=== PATIENT | female | born 1950 | race Caucasian/White ===

== ENCOUNTER → 2017-07-24 10:07 | Outpatient (CLI) | payer MEDICARE, SELFPAY ==
--- NOTE | 2017-07-24 10:09 | HPBI_ITS ---
MAMMOGRAPHY - BILATERAL SCREENING REASON FOR EXAM: Female, 66 years old. Routine annual screening examination. PERTINENT HISTORY: Non-contributory. TECHNIQUE: Digital bilateral breast cesar (3D mammographic acquisition) in the CC and MLO projections. 2-D mediolateral oblique (MLO) and craniocaudad (CC) views of both breasts were obtained. CAD: Full Field Digital Mammography with Computer Added Detection was performed. COMPARISON: Comparison is made with prior study dated July 20, 2016 and July 14, 2015. FINDINGS: Breast Composition: There are scattered areas of fibroglandular density. There are no dominant masses or suspicious calcifications. Stable 5 mm well-defined nodule in the upper outer aspect of the left breast. Stable small bilateral benign-appearing axillary lymph nodes. No other significant abnormalities are identified. There has been no significant change since the prior study. HPBI/SCREENING MAMM (CAD), BILAT IMPRESSION: Stable bilateral screening mammogram. Yearly follow-up mammogram recommended. (A) ASSESSMENT CATEGORY: BIRADS Category 2: Benign. A letter regarding these results will be sent to the patient by the facility within 30 days. Approximately 10% of breast cancers are not detected by mammography. A normal mammogram should not delay biopsy of a clinically suspicious abnormality. [id number] Electronically Signed: Victoriano Cordoba MD at 12:30 EDT Tel [phone], Service support ,
== END ==
PROVIDERS: Family Provider Internal Medicine; PCP Internal Medicine; Visit Provider Internal Medicine
DX: Z12.31 Encounter for screening mammogram for malignant neoplasm of breast (principal)
CPT/HCPCS: 77063; 77067

== ENCOUNTER 2018-04-25 11:19 | Emergency (ER) | payer MEDICARE, SELFPAY ==
[2018-04-25 11:20] VITALS: BP 189/81; PULSE 86; RESP 18; TEMP 36.7; O2SAT 98; BMI 33.5
[2018-04-25 11:27] VITALS: O2SAT 97
--- NOTE | 2018-04-25 11:27 | EKG12_ITS ---
Test Reason : PALPS Blood Pressure : / mmHG Vent. Rate : 088 BPM Atrial Rate : 088 BPM P-R Int : 138 ms QRS Dur : 086 ms QT Int : 378 ms P-R-T Axes : 049 012 030 degrees QTc Int : 457 ms Normal sinus rhythm Nonspecific ST abnormality Abnormal ECG Confirmed by MELANIE CARDONA, IBAN ([id number]), editor farm journal ARIC LLANES ([id number] on 04/27/2018 9:12:12 AM Referred By: Confirmed By:IBAN NAVARRO MD
--- NOTE | 2018-04-25 11:30 | RAD_ITS ---
STUDY: X-RAY CHEST REASON FOR EXAM: Female, 67 years old. Chest pain and short of breath. TECHNIQUE: Single AP portable view of the chest. COMPARISON: None. FINDINGS: The lungs are clear and expanded. There is no demonstrated pleural abnormality. Normal size heart. Normal mediastinum and ronni. Normal visualized pulmonary arteries. Normal visualized aortic arch and descending thoracic aorta. There are diffuse degenerative changes of the visualized thoracic spine. Normal visualized ribs, clavicles, and shoulders. There is no demonstrated abnormality of the visualized soft tissue structures of the upper abdomen. RAD/Chest 1 View (Portable) IMPRESSION: No acute chest disease. Electronically Signed: Randal Song MD at 12:07 EST , Service support ,
--- NOTE | 2018-04-25 11:44 | ED.VISSUMM ---
- ER Visit Summary Date of Service: 04/25/18 Chief Complaint: [] Palpitations for 2 months History of Present Illness: The patient is a 67 F [] onset palpitations for 2 months, she has had no fever no cough no chest pain no history of MA PE DVT, normal bowel bladder habits. She indicates she is actually able to exercise at the [facility] riding a spinning bike getting on and off of it during exercise associated with that activity and does not feel sick when she does these activities she indicates today she had persistent sense of palpitations she had no syncope and she came in for evaluation She indicates she went to a pharmacy and they took her blood pressure was 180/80 range she does not known to have hypertension Physical Examination: [] 180/81 heart rate 80 on the monitor sinus rhythm General, no distress resting comfortably HEENT is generally unremarkable The neck is supple no adenopathy Cardiovascular, regular rate and rhythm Lungs, clear bilateral Abdomen, soft nontender Extremities, no clubbing cyanosis or edema Neurologic, awake alert answering questions appropriately moving all 4 extremities The patient really has no risk factors she is asked that we check her thyroid studies as she has a history of hyperthyroid was treated with radioablation therapy and she is currently on thyroid replacement she has no history of MA PE or DVT her so she is in sinus rhythm here EKG shows a sinus rhythm nothing acute we will keep her on the monitor screening labs Test Results: [] Emergency Department Course and Treatment: [] The patient's screening labs including her thyroid studies are all within normal range generally see those reports, her white count was 13, chest x-ray unremarkable per radiology, see that report, the patient is remained in a sinus rhythm here in the monitor resting comfortably no recurrence of the palpitations I have explained to the exact etiology of the above is unclear at this time we have asked her to basically rest follow-up with her family doctors and outpatient providers for further management options and return for change in symptoms she is comfortable this plan asked her to take 2 baby aspirin a day until she follows up and she will do so again she understands need for follow-up given the long differential Treatment Plan: [] Disposition: [] Home stable Impression: [] Palpitations etiology unclear This note was generated with [employer] software. It may contain incorrect words, spelling, and punctuation that were not noted in review of the chart prior to signing ED Disposition - Plan for ED Patient: Chief Complaint: Palpitations Referrals: Cori Brown MD [Primary Care Provider] -
[2018-04-25 11:57] LABS: Basophil# 0.04 X10^3/uL; Basophil% 0.3 % (0-1); Eosinophil# 0.04 X10^3/uL; Eosinophils% 0.3 % (0-5); Hematocrit 44.4 % (37-47); Hemoglobin 14.9 g/dl (12.0-15.0); Lymphocyte % 23.2 % (19-41); Mean Corp Hgb Conc 33.6 g/gl (32-36); Mean Corpuscular Hgb 30.5 pg (27.0-32.0); Mean Corpuscular Volume 90.8 fL (81-99); Mean Platelet Vol. 10.1 fl (6.2-12.0); Monocyte# 1.14 X10^3/uL; Monocyte% 8.5 % (0-10); Neutrophil % 67.3 % (47-70); Platelet Count 324 K/mm3 (150-450); RBC Distribution Width CV 12.8 % (11.6-14.6); RBC Distribution Width SD 41.9 fl (35.1-43.9); Red Blood Count 4.89 M/mm3 (4.2-5.4); White Blood Count 13.4 K/mm3 (4.4-11.0)
[2018-04-25 12:01] LABS: POSITIVE COUNT NO; POSITIVE DIFFERENTIAL NO; POSITIVE MORPHOLOGY NO
[2018-04-25] MEDS: Aspirin 81 MG TAB.CHEW 324 MG PO (12:04)
[2018-04-25] MEDS: 0.9% Normal Saline 1,000 ML 150 ML IV (12:05)
[2018-04-25 12:25] LABS: Anion Gap 10 (5-15); BNP,B-Type NATRIURETIC PEPTIDE 23.8 pg/mL (0-100); BUN 24 mg/dL (7-18); BUN/Creat Ratio 26.5 RATIO (10-20); Calcium,Total 8.7 mg/dL (8.5-10.1); Chloride 104 mmol/L (98-107); EST Glomerular Filtration Rate 66 mL/min (>60); Est Glom Filt Rate - Afr Amer 80 mL/min (>60); Estimated Creatinine Clearance 47.32 ml/min; Glucose 100 mg/dL (74-106); Potassium 3.4 mmol/L (3.5-5.1); Sodium Level 141 mmol/L (136-145)
[2018-04-25 12:48] LABS: T4 Total, Thyroxin 11.3 ug/dL (4.8-13.9); Thyroid Stim Hormone (TSH) 0.71 uIU/mL (0.358-3.74)
--- NOTE | 2018-04-25 12:55 | ED.DEP ---
ED Disposition - Plan for ED Patient: Chief Complaint: Palpitations Instructions: ED Palpitations Referrals: Cori Brown MD [Primary Care Provider] - Additional Instructions: Take 2 baby aspirin a day make sure you follow-up with your doctors for further outpatient management
[2018-04-25 13:33] VITALS: BP 162/79; PULSE 69; RESP 18; O2SAT 96
--- OUTSIDE RECORDS SUMMARY | 2018-06-11 15:17 | XMS RPT_ITS ---
:1950 Author Organization OHIP Care Team Providers Name Role Phone DASH ZHU ([facility]) Attending Unavailable DASH ZHU ([facility]) Attending Unavailable DASH ZHU ([facility]) Referring Unavailable DASH ZHU ([facility]) Referring Unavailable DASH ZHU ([facility]) Attending Unavailable TALAMPAS, FIORELLA D Referring Unavailable TALAMPAS, FIORELLA Erwin Attending Unavailable TALAMPAS, FIORELLA D Referring Unavailable DASH ZHU ([facility]) Attending Unavailable Talampas, Fiorella Primary Care Unavailable Jesus Cruz Attending Unavailable Talampas, Fiorella Attending Unavailable Talampas, Fiorella Referring Unavailable Talampas, Fiorella Primary Care Unavailable PROBLEMS PROBLEMS DATE TYPE CONDITION / CODE ATTENDING STATUS SOURCE 04/27/2018 Active Essential NA Active [facility] (primary) [place] hypertension / Repository I10(ICD-10) 06/09/2015 Active Vitamin D NA Active [facility] deficiency, [place] unspecified / Repository E55.9(ICD-10) 12/05/2017 Active Hypothyroidism, NA Active [facility] unspecified / [place] E03.9(ICD-10) Repository 12/05/2017 Active Other mcc NA Active [facility] (current) drug [place] therapy / Repository Z79.899(ICD-10) 12/05/2017 Active Impaired fasting NA Active [facility] glucose / [place] R73.01(ICD-10) Repository 08/21/2017 Unknown Z12.31 - Encounter Fiorella Brown Active [facility] for screening [facility] malignant neoplasm Repository of breast / Z12.31(ICD-10) PROCEDURES PROCEDURES No Procedure Records FoundRESULTS RESULTS PROGRESS Observed: 05/29/2018 Status: COMPLETED Source: [place] 9:51 AM [facility] REPOSITORY HNO ID: [id number] Author: Dash (Rico) Gage Service: (none) Author Type: Nurse Practitioner Type: Progress Notes Filed: 05/29/2018 12:04 PM Note Text: HPI/CC: Amina Tobar is an 67 year old female who presents for followup of anxiety/ depression treatment. Started on Wellbutrin ~4 weeks ago Since last visit patient anxious feelings, weight loss and sleep have improved. Patient notes friends/co-workers note a difference in her mood. Symptoms have occurred daily. Panic hx: Yes, now only feeling anxious intermittently. No panic attacks since last visit. Anxious feeling has improved Sleep Problems: chronic sleep problems, notes if she wakes in the middle of the night she tends to worry and cannot fall back asleep Appetite: down slightly, doesn't feel like eating since starting new medication Support system: and friends Positive health behaviors: back to working out and volunteering HTN: patient reports doing well on Losartan x2 weeks following side effects from Lisinopril. Checking BP at home with readings fluctuating between 130-140s/70s-80s. No consistent highs. Denies headache, chest pain, SOB or edema ROS as above, otherwise non-contributory. Reviewed PMHx, PSHx, social Hx, medications and allergies. PHYSICAL EXAMINATION: BP 142/86 Pulse 64 Temp 36.9 ?C (98.5 ?F) (Temporal Artery) Resp 16 Wt 79.8 kg (176 lb) SpO2 98% BMI 33.25 kg/m? Appearance: well dressed well groomed, cooperative and pleasant Behavior: good eye contact Speech: fluent and coherent Mood: happy Affect: appropriate Perceptions: none Thought process: goal directed Thought Content: normal Intelligence level: normal Insight: good Judgment: good Lungs: Lungs clear to auscultation. No wheezing, rhonchi, rales Heart: RRR without murmur, gallop, or rubs. No ectopy ASSESSMENT/PLAN: 1. Anxiety - ICD9: 300.00, ICD10: F41.9 - Improved, not at baseline - Increase Wellbutrin - Recommend continued positive health behaviors ie: working out/volunteering - BUPROPION XL 300 MG 24 HR TAB - Follow up in 4-5 weeks as scheduled 2. Essential hypertension - ICD9: 401.9, ICD10: I10 - suboptimal control - Continue current medication(s) only started ~2 weeks ago, will avoid dosage adjustment until patient reaches ~4 weeks of continued use - Encouraged dietary sodium restriction/DASH diet - Recommended regular aerobic exercise. - Recommend home blood pressure monitoring, to bring results in on next visit - Recheck in 4 weeks as scheduled, sooner should new symptoms or problems arise. - Goal of BP <130/80 - Recommended no refined sugar, low refined starch, healthy oil intake (olive oil), healthy protein (fish) along the lines of the Mediterranean diet. Prescription instructions reviewed with patient as applicable. Potential red flag symptoms discussed with the patient. Reviewed appropriate action plan to take if red flag symptoms occur. Patient agreeable to treatment plan. Dash Zhu APRN.CNP CNOV Observed: 05/29/2018 Status: COMPLETED Source: [place] 9:20 AM [facility] REPOSITORY Office Visit (INTMWS) EKATERINAAMINA Michelle ([id number]) 1950 F NFR Date Time Provider Department 05/29/18 9:20 AM DASH ZHU ([facility]) INTMWS During your visit today, we recorded the following information about you: Temperature Pulse Respiration Blood pressure 98.5 degrees 64/minute 16/minute 142/86 Weight 79.8 kg Dash Zhu APRN.CNP 05/29/2018 12:04 PM Signed HPI/CC: Amina Tobar is an 67 year old female who presents for followup of anxiety/ depression treatment. Started on Wellbutrin ~4 weeks ago Since last visit patient anxious feelings, weight loss and sleep have improved. Patient notes friends/co-workers note a difference in her mood. Symptoms have occurred daily. Panic hx: Yes, now only feeling anxious intermittently. No panic attacks since last visit. Anxious feeling has improved Sleep Problems: chronic sleep problems, notes if she wakes in the middle of the night she tends to worry and cannot fall back asleep Appetite: down slightly, doesn't feel like eating since starting new medication Support system: and friends Positive health behaviors: back to working out and volunteering HTN: patient reports doing well on Losartan x2 weeks following side effects from Lisinopril. Checking BP at home with readings fluctuating between 130-140s/70s-80s. No consistent highs. Denies headache, chest pain, SOB or edema ROS as above, otherwise non-contributory. Reviewed PMHx, PSHx, social Hx, medications and allergies. PHYSICAL EXAMINATION: BP 142/86 Pulse 64 Temp 36.9 ?C (98.5 ?F) (Temporal Artery) Resp 16 Wt 79.8 kg (176 lb) SpO2 98% BMI 33.25 kg/m? Appearance: well dressed well groomed, cooperative and pleasant Behavior: good eye contact Speech: fluent and coherent Mood: happy Affect: appropriate Perceptions: none Thought process: goal directed Thought Content: normal Intelligence level: normal Insight: good Judgment: good Lungs: Lungs clear to auscultation. No wheezing, rhonchi, rales Heart: RRR without murmur, gallop, or rubs. No ectopy ASSESSMENT/PLAN: 1. Anxiety - ICD9: 300.00, ICD10: F41.9 - Improved, not at baseline - Increase Wellbutrin - Recommend continued positive health behaviors ie: working out/volunteering - BUPROPION XL 300 MG 24 HR TAB - Follow up in 4-5 weeks as scheduled 2. Essential hypertension - ICD9: 401.9, ICD10: I10 - suboptimal control - Continue current medication(s) only started ~2 weeks ago, will avoid dosage adjustment until patient reaches ~4 weeks of continued use - Encouraged dietary sodium restriction/DASH diet - Recommended regular aerobic exercise. - Recommend home blood pressure monitoring, to bring results in on next visit - Recheck in 4 weeks as scheduled, sooner should new symptoms or problems arise. - Goal of BP <130/80 - Recommended no refined sugar, low refined starch, healthy oil intake (olive oil), healthy protein (fish) along the lines of the Mediterranean diet. Prescription instructions reviewed with patient as applicable. Potential red flag symptoms discussed with the patient. Reviewed appropriate action plan to take if red flag symptoms occur. Patient agreeable to treatment plan. JANEEN Coombs APRN.CNP 05/29/2018 10:07 AM Signed Continue to check BP at home. If you are consistently getting BP readings of greater than 140/90 please notify office. Increasing Wellbutrin to 300 mg daily. Referring Provider: DASH ZHU ([employer]) [[id number]] Allergies As of Date: 05/29/2018 Noted Allergy Reaction AXID (NIZATIDINE) 03/30/2005 4 - Hives CYMBALTA (DULOXETINE) 08/19/2009 Comments: Insomnia MERIDIA (SIBUTRAMINE) 03/30/2005 2 - Rash SULFABENZAMIDE 03/30/2005 Comments: red mouth Date Reviewed: 05/04/2018 Reviewed by: Danielle Draper Ma - Fully Assessed Reason for Visit: Recheck [92] Cmt: Medication follow up Primary Visit Diagnosis:Anxiety [F41.9] Other Visit Diagnosis:Essential hypertension [I10] Order(s):buPROPion XL (WELLBUTRIN XL) 300 mg 24 hr tabletTake 1 tablet by mouth once daily.Disp: 30 tabletRfl: 2 Prescriptions as of 05/29/2018 Sig: BUPROPION XL 300 MG 24 HR TAB Take 1 tablet by mouth once d* LOSARTAN 50 MG TABLET Take 1 tablet by mouth once d* LORAZEPAM 0.5 MG TABLET Take 0.5 mg by mouth at bedti* TRAMADOL 50 MG TABLET Take 50 mg by mouth as needed. LEVOTHYROXINE 75 MCG TABLET Take 1 tablet by mouth daily * PERFLUTREN LIPID MICROSPHERES* Inject 1.3 mL intravenously a* HYDROCHLOROTHIAZIDE 50 MG TAB* Take 0.5-1 tablets by mouth o* OMEPRAZOLE 20 MG CAPSULE,MG* Take 2 capsules by mouth once* PROMETHAZINE 25 MG TABLET Take 0.5-1 tablets by mouth e* MELOXICAM 15 MG TABLET Take 1 tablet by mouth once d* MAGNESIUM 250 MG TABLET Take 250 mg by mouth once ysabel* HYDROCORTISONE 2.5 % TOPICAL * Apply 1 application to affect* VITAMIN D-3 ORAL Take by mouth. GABAPENTIN 300 MG CAPSULE Take 1 capsule by mouth daily* MULTIVITAL ORAL Take by mouth. CHOLECALCIFEROL (VITAMIN D3) * Take 1,000 Units by mouth onc* ALBUTEROL SULFATE HFA 90 MCG/* Inhale 2 Puffs as instructed * Problem List As Of Date 05/29/2018 Noted Resolved GENERAL OSTEOARTHROSIS [M15.9] More... BONE AND CARTILAGE DIS NOS [M89.9, M94.9] INVALID FOR* DIFFUS CYSTIC MASTOPATHY [N60.19] IRRITABLE COLON [K58.9] OBESITY NOS [E66.9] DEPRESSIVE DISORDER NEC [F32.9] More... 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 Other and unspecified noninfectious gastroenter*INVALID FOR* Other instructions from your clinician: Continue to check BP at home. If you are consistently getting BP readings of greater than 140/90 please notify office. Increasing Wellbutrin to 300 mg daily. Prescriptions ordered this encounter Disp Refills Start End BUPROPION XL 300 MG 24 HR TAB 30 t* 2 05/29/2018 Route: ORAL Sig: Take 1 tablet by mouth once daily. Medications Discontinued During This Encounter buPROPion SR (WELLBUTRIN SR) 150 mg * 30 t* 1 05/04/2018 05/29/2018 Route: ORAL Sig: Take 1 tablet by mouth once daily. Disc: Reason for discontinue is not on file. Encounter Status:Closed by DASH ZHU CNP on 05/29/18 LINDSAY Observed: 05/14/2018 Status: COMPLETED Source: [place] 12:00 AM [facility] REPOSITORY Patient Outreach (INTMWH) AMINA TOBAR ([id number]) 1950 F NFR Date Time Provider Department 05/14/18 [facility] During your visit today, we recorded the following information about you: Allergies As of Date: 05/14/2018 Noted Allergy Reaction AXID (NIZATIDINE) 03/30/2005 4 - Hives CYMBALTA (DULOXETINE) 08/19/2009 Comments: Insomnia MERIDIA (SIBUTRAMINE) 03/30/2005 2 - Rash SULFABENZAMIDE 03/30/2005 Comments: red mouth Date Reviewed: 05/04/2018 Reviewed by: Danielle Draper Ma - Fully Assessed Visit Diagnosis:Medication management [Z79.899] Order(s):LIPID PANEL BASIC [SQLIPB] Order #: [id number] FUTURE Prescriptions as of 05/14/2018 Sig: LOSARTAN 50 MG TABLET Take 1 tablet by mouth once d* BUPROPION HCL SR 150 MG TABLE* Take 1 tablet by mouth once d* LORAZEPAM 0.5 MG TABLET Take 0.5 mg by mouth at bedti* TRAMADOL 50 MG TABLET Take 50 mg by mouth as needed. LEVOTHYROXINE 75 MCG TABLET Take 1 tablet by mouth daily * PERFLUTREN LIPID MICROSPHERES* Inject 1.3 mL intravenously a* X LISINOPRIL 10 MG TABLET Take 1 tablet by mouth once d* HYDROCHLOROTHIAZIDE 50 MG TAB* Take 0.5-1 tablets by mouth o* OMEPRAZOLE 20 MG CAPSULE,MG* Take 2 capsules by mouth once* PROMETHAZINE 25 MG TABLET Take 0.5-1 tablets by mouth e* MELOXICAM 15 MG TABLET Take 1 tablet by mouth once d* MAGNESIUM 250 MG TABLET Take 250 mg by mouth once ysabel* HYDROCORTISONE 2.5 % TOPICAL * Apply 1 application to affect* VITAMIN D-3 ORAL Take by mouth. GABAPENTIN 300 MG CAPSULE Take 1 capsule by mouth daily* MULTIVITAL ORAL Take by mouth. CHOLECALCIFEROL (VITAMIN D3) * Take 1,000 Units by mouth onc* ALBUTEROL SULFATE HFA 90 MCG/* Inhale 2 Puffs as instructed * Problem List As Of Date 05/14/2018 Noted Resolved GENERAL OSTEOARTHROSIS [M15.9] More... BONE AND CARTILAGE DIS NOS [M89.9, M94.9] INVALID FOR* DIFFUS CYSTIC MASTOPATHY [N60.19] IRRITABLE COLON [K58.9] OBESITY NOS [E66.9] DEPRESSIVE DISORDER NEC [F32.9] More... 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 Other and unspecified noninfectious gastroenter*INVALID FOR* Encounter Status:Closed by KARLIE URIARTEUSEFrancie on 05/29/18 PROGRESS Observed: 05/04/2018 Status: COMPLETED Source: [place] 11:15 AM [facility] REPOSITORY HNO ID: [id number] Author: Dash (Process Engineering Intern) Gage Service: (none) Author Type: Nurse Practitioner Type: Progress Notes Filed: 05/04/2018 12:04 PM Note Text: CC: Patient presents with: Recheck: Medication follow up, feel lathargic and emotional, fatigued, just not self HPI Amina Tobar is a 67 year old female who presents today with for complaints of feeling fatigued and overly emotional. Patient was last seen ~1 week ago where she was diagnosed with HTN and started on Lisinopril and Synthroid dose was adjusted based on laboratory assessment. Today she presents with complaints of not feeling like herself, feeling fatigued, overly emotional and crying a lot. She reports feeling shaky and unable to catch her breath at times. She did take a dose of her prescribed Ativan last evening to help her sleep. She reports some family issues at home with her older sister and nephew- she is trying to help take care of things for them in addition to several deaths within in her three affiliated of family/friends. As well as being stressed d/t the holidays. Notes previous history of anxiety/depression, prescribed Wellbutrin which seemed to help. She does note some cough after starting Lisinopril as well as decreased appetite. She hasn't worked out this last week d/t how she has been feeling. Notes some trouble sleeping. REVIEW OF SYSTEMS General: no fevers, no chills, no night sweats, no recurrent infections, no significant changes in weight and See HPI Respiratory: no cough, no wheezing, , no hemoptysis Cardiovascular: no chest pain, no chest pressure and no swelling Hx of palpitations GI: No nausea, vomiting, or diarrhea Psych: See HPI PAST MEDICAL HISTORY Diagnosis Date - Allergic rhinitis, cause unspecified - Depressive disorder, not elsewhere classified with anxiety - Diffuse cystic mastopathy - Disorder of bone and cartilage, unspecified 05/2003 - Esophageal reflux - Generalized osteoarthrosis, unspecified site lumbar spine - Internal hemorrhoids without mention of complication - Irritable bowel syndrome - Obesity, unspecified - Other bursitis disorders right greater trochanter - Sciatica - Thyrotoxicosis without mention of goiter or other cause, without mention of thyrotoxic crisis or storm 1998 Hyperthyroidism/had radioactive iodine - Unspecified hypothyroidism PAST SURGICAL HISTORY Procedure Laterality Date - COLONOSCOP W/ OR W/O [facility] SPEC 07/02/07 - COLONOSCOP W/ OR W/O [facility] SPEC 04/09/14 Colonoscopy - EGD W/O OR W/BRUSH/WASH 12/1991 EGD - PAST SURGICAL HISTORY OF cataract surgery--right July 2015,left August 2015 - REMOVAL OF TONSILS,<12 Y/O Tonsillectomy/adenoidectomy - SIGMOIDOSCOPY FLEX DIAG Sigmoidoscopy, flexible ALLERGIES Axid [Nizatidine]; Cymbalta [Duloxetine]; Meridia [Sibutramine]; Sulfabenzamide MEDICATIONS albuterol HFA 90 mcg/actuation inhaler Inhale 2 Puffs as instructed every 6 hours as needed for Wheezing/Shortness of Breath. buPROPion SR (WELLBUTRIN SR) 150 mg 12 hr tablet Take 1 tablet by mouth once daily. CALCIUM CARBONATE/VITAMIN D3 (VITAMIN D-3 ORAL) Take by mouth. Cholecalciferol, Vitamin D3, (VITAMIN D) 1,000 unit cap Take 1,000 Units by mouth once daily. FA/MV,CA,IRON,MIN/LYCOPENE/LUT (MULTIVITAL ORAL) Take by mouth. gabapentin (NEURONTIN) 300 mg capsule Take 1 capsule by mouth daily at bedtime. (Dr. Gaffney) hydroCHLOROthiazide (HYDRODIURIL, ESIDRIX) 50 mg tablet Take 0.5-1 tablets by mouth once daily. hydrocortisone 2.5 % cream Apply 1 application to affected area three times daily as needed. For rash on hand and extremities until rash resolves levothyroxine (SYNTHROID) 75 mcg tablet Take 1 tablet by mouth daily before breakfast. Except 1/2 tab Mon, Mon and Monday lisinopril (ZESTRIL, PRINIVIL) 10 mg tablet Take 1 tablet by mouth once daily. LORazepam (ATIVAN) 0.5 mg tab Take 0.5 mg by mouth at bedtime as needed. Magnesium 250 mg tab Take 250 mg by mouth once daily. meloxicam (MOBIC) 15 mg tablet Take 1 tablet by mouth once daily as needed. (Dr. Gaffney) omeprazole (PRILOSEC) 20 mg capsule Take 2 capsules by mouth once daily. (Dr. Gaffney) perflutren lipid microspheres (DEFINITY) 1.1 mg/mL injection (to be provided with echo procedure) Inject 1.3 mL intravenously as directed. promethazine (PHENERGAN) 25 mg tablet Take 0.5-1 tablets by mouth every 6 hours as needed. traMADol (ULTRAM) 50 mg tablet Take 50 mg by mouth as needed. FAMILY HISTORY Problem Relation Age of Onset - Diabetes Father also CAD/OK - Coronary Artery Disease Mother CABG at age 80 - Cancer Unknown aunt lung cancer Social History Substance Use Topics - Smoking status: Former Smoker Start date: 05/15/1986 - Smokeless tobacco: Never Used - Alcohol use 4.5 oz/week 3 Glasses of Wine (5oz) per week PHYSICAL EXAM BP 132/80 Pulse 72 Temp 36.2 ?C (97.2 ?F) (Temporal Artery) Resp 16 Wt 83 kg (183 lb) SpO2 100% BMI 34.58 kg/m? General Appearance: well appearing, in no acute distress, alert Pysch: affect is anxious, tearful Skin: Skin color, texture, turgor normal for age; Lungs: lungs clear to auscultation. No wheezing, rhonchi, rales Heart: RRR without murmur, gallop, or rubs. No ectopy INFLUENZA(1) due on 01/13/2018 MAMMOGRAM due on 07/24/2018 ANNUAL PCP TEAM CHRONIC DISEASE VISIT due on 04/26/2019 DIABETES SCREEN due on 12/05/2020 DTAP,TDAP,TD(2 - Td) due on 09/08/2021 LIPID SCREEN due on 06/19/2022 COLORECTAL CANCER SCREENING,SEE MODIFIER due on 04/09/2024 BONE DENSITY Completed ADULT PREVNAR-13 Completed HEPATITIS C SCREENING Completed PNEUMOVAX AGE 65 AND OVER WITH 5YR LOOKBACK Completed ASSESSMENT/PLAN: 1. Anxiety - ICD9: 300.00, ICD10: F41.9 - Encouraged relaxation and exercise - Begin Wellbutrin, previously tolerated - BUPROPION HCL SR 150 MG TABLET,12 HR SUSTAINED-RELEASE - Follow up in 3-4 weeks, sooner for new or worsening symptoms Dash Zhu APRN.CNP Prescription instructions reviewed with patient as applicable. Potential red flag symptoms discussed with the patient. Reviewed appropriate action plan to take if red flag symptoms occur. Patient agreeable to treatment plan. CNOV Observed: 05/04/2018 Status: COMPLETED Source: [place] 10:40 AM [facility] REPOSITORY Office Visit (INTMWS) AMINA TOBAR ([id number]) 1950 F NFR Date Time Provider Department 05/04/18 10:40 AM DASH ZHU ([place]) IN[facility] During your visit today, we recorded the following information about you: Temperature Pulse Respiration Blood pressure 97.2 degrees 72/minute 16/minute 132/80 Weight 83 kg Dash Zhu APRN.CNP 05/04/2018 12:04 PM Signed CC: Patient presents with: Recheck: Medication follow up, feel lathargic and emotional, fatigued, just not self HPI Amina Tobar is a 67 year old female who presents today with for complaints of feeling fatigued and overly emotional. Patient was last seen ~1 week ago where she was diagnosed with HTN and started on Lisinopril and Synthroid dose was adjusted based on laboratory assessment. Today she presents with complaints of not feeling like herself, feeling fatigued, overly emotional and crying a lot. She reports feeling shaky and unable to catch her breath at times. She did take a dose of her prescribed Ativan last evening to help her sleep. She reports some family issues at home with her older sister and nephew- she is trying to help take care of things for them in addition to several deaths within in her three affiliated of family/friends. As well as being stressed d/t the holidays. Notes previous history of anxiety/depression, prescribed Wellbutrin which seemed to help. She does note some cough after starting Lisinopril as well as decreased appetite. She hasn't worked out this last week d/t how she has been feeling. Notes some trouble sleeping. REVIEW OF SYSTEMS General: no fevers, no chills, no night sweats, no recurrent infections, no significant changes in weight and See HPI Respiratory: no cough, no wheezing, , no hemoptysis Cardiovascular: no chest pain, no chest pressure and no swelling Hx of palpitations GI: No nausea, vomiting, or diarrhea Psych: See HPI PAST MEDICAL HISTORY Diagnosis Date - Allergic rhinitis, cause unspecified - Depressive disorder, not elsewhere classified with anxiety - Diffuse cystic mastopathy - Disorder of bone and cartilage, unspecified 05/2003 - Esophageal reflux - Generalized osteoarthrosis, unspecified site lumbar spine - Internal hemorrhoids without mention of complication - Irritable bowel syndrome - Obesity, unspecified - Other bursitis disorders right greater trochanter - Sciatica - Thyrotoxicosis without mention of goiter or other cause, without mention of thyrotoxic crisis or storm 1998 Hyperthyroidism/had radioactive iodine - Unspecified hypothyroidism PAST SURGICAL HISTORY Procedure Laterality Date - COLONOSCOP W/ OR W/O [facility] SPEC 07/02/07 - COLONOSCOP W/ OR W/O [facility] SPEC 04/09/14 Colonoscopy - EGD W/O OR W/BRUSH/WASH 12/1991 EGD - PAST SURGICAL HISTORY OF cataract surgery--right July 2015,left August 2015 - REMOVAL OF TONSILS,<12 Y/O Tonsillectomy/adenoidectomy - SIGMOIDOSCOPY FLEX DIAG Sigmoidoscopy, flexible ALLERGIES Axid [Nizatidine]; Cymbalta [Duloxetine]; Meridia [Sibutramine]; Sulfabenzamide MEDICATIONS albuterol HFA 90 mcg/actuation inhaler Inhale 2 Puffs as instructed every 6 hours as needed for Wheezing/Shortness of Breath. buPROPion SR (WELLBUTRIN SR) 150 mg 12 hr tablet Take 1 tablet by mouth once daily. CALCIUM CARBONATE/VITAMIN D3 (VITAMIN D-3 ORAL) Take by mouth. Cholecalciferol, Vitamin D3, (VITAMIN D) 1,000 unit cap Take 1,000 Units by mouth once daily. FA/MV,CA,IRON,MIN/LYCOPENE/LUT (MULTIVITAL ORAL) Take by mouth. gabapentin (NEURONTIN) 300 mg capsule Take 1 capsule by mouth daily at bedtime. (Dr. Gaffney) hydroCHLOROthiazide (HYDRODIURIL, ESIDRIX) 50 mg tablet Take 0.5-1 tablets by mouth once daily. hydrocortisone 2.5 % cream Apply 1 application to affected area three times daily as needed. For rash on hand and extremities until rash resolves levothyroxine (SYNTHROID) 75 mcg tablet Take 1 tablet by mouth daily before breakfast. Except 1/2 tab Mon, Mon and Monday lisinopril (ZESTRIL, PRINIVIL) 10 mg tablet Take 1 tablet by mouth once daily. LORazepam (ATIVAN) 0.5 mg tab Take 0.5 mg by mouth at bedtime as needed. Magnesium 250 mg tab Take 250 mg by mouth once daily. meloxicam (MOBIC) 15 mg tablet Take 1 tablet by mouth once daily as needed. (Dr. Gaffney) omeprazole (PRILOSEC) 20 mg capsule Take 2 capsules by mouth once daily. (Dr. Gaffney) perflutren lipid microspheres (DEFINITY) 1.1 mg/mL injection (to be provided with echo procedure) Inject 1.3 mL intravenously as directed. promethazine (PHENERGAN) 25 mg tablet Take 0.5-1 tablets by mouth every 6 hours as needed. traMADol (ULTRAM) 50 mg tablet Take 50 mg by mouth as needed. FAMILY HISTORY Problem Relation Age of Onset - Diabetes Father also CAD/OK - Coronary Artery Disease Mother CABG at age 80 - Cancer Unknown aunt lung cancer Social History Substance Use Topics - Smoking status: Former Smoker Start date: 05/15/1986 - Smokeless tobacco: Never Used - Alcohol use 4.5 oz/week 3 Glasses of Wine (5oz) per week PHYSICAL EXAM BP 132/80 Pulse 72 Temp 36.2 ?C (97.2 ?F) (Temporal Artery) Resp 16 Wt 83 kg (183 lb) SpO2 100% BMI 34.58 kg/m? General Appearance: well appearing, in no acute distress, alert Pysch: affect is anxious, tearful Skin: Skin color, texture, turgor normal for age; Lungs: lungs clear to auscultation. No wheezing, rhonchi, rales Heart: RRR without murmur, gallop, or rubs. No ectopy INFLUENZA(1) due on 01/13/2018 MAMMOGRAM due on 07/24/2018 ANNUAL PCP TEAM CHRONIC DISEASE VISIT due on 04/26/2019 DIABETES SCREEN due on 12/05/2020 DTAP,TDAP,TD(2 - Td) due on 09/08/2021 LIPID SCREEN due on 06/19/2022 COLORECTAL CANCER SCREENING,SEE MODIFIER due on 04/09/2024 BONE DENSITY Completed ADULT PREVNAR-13 Completed HEPATITIS C SCREENING Completed PNEUMOVAX AGE 65 AND OVER WITH 5YR LOOKBACK Completed ASSESSMENT/PLAN: 1. Anxiety - ICD9: 300.00, ICD10: F41.9 - Encouraged relaxation and exercise - Begin Wellbutrin, previously tolerated - BUPROPION HCL SR 150 MG TABLET,12 HR SUSTAINED-RELEASE - Follow up in 3-4 weeks, sooner for new or worsening symptoms Dash Zhu APRN.SPOKE MAKER Prescription instructions reviewed with patient as applicable. Potential red flag symptoms discussed with the patient. Reviewed appropriate action plan to take if red flag symptoms occur. Patient agreeable to treatment plan. Referring Provider: SELF [[id number]] Allergies As of Date: 05/04/2018 Noted Allergy Reaction AXID (NIZATIDINE) 03/30/2005 4 - Hives CYMBALTA (DULOXETINE) 08/19/2009 Comments: Insomnia MERIDIA (SIBUTRAMINE) 03/30/2005 2 - Rash SULFABENZAMIDE 03/30/2005 Comments: red mouth Date Reviewed: 05/04/2018 Reviewed by: Danielle Draper Ma - Fully Assessed Reason for Visit: Recheck [92] Cmt: Medication follow up, feel lathargic and emotional, fatigued, just not self Primary Visit Diagnosis:Anxiety [F41.9] Order(s):buPROPion SR (WELLBUTRIN SR) 150 mg 12 hr tabletTake 1 tablet by mouth once daily.Disp: 30 tabletRfl: 1 Prescriptions as of 05/04/2018 Sig: ALBUTEROL SULFATE HFA 90 MCG/* Inhale 2 Puffs as instructed * BUPROPION HCL SR 150 MG TABLE* Take 1 tablet by mouth once d* VITAMIN D-3 ORAL Take by mouth. CHOLECALCIFEROL (VITAMIN D3) * Take 1,000 Units by mouth onc* MULTIVITAL ORAL Take by mouth. GABAPENTIN 300 MG CAPSULE Take 1 capsule by mouth daily* HYDROCHLOROTHIAZIDE 50 MG TAB* Take 0.5-1 tablets by mouth o* HYDROCORTISONE 2.5 % TOPICAL * Apply 1 application to affect* LEVOTHYROXINE 75 MCG TABLET Take 1 tablet by mouth daily * LISINOPRIL 10 MG TABLET Take 1 tablet by mouth once d* LORAZEPAM 0.5 MG TABLET Take 0.5 mg by mouth at bedti* MAGNESIUM 250 MG TABLET Take 250 mg by mouth once ysabel* MELOXICAM 15 MG TABLET Take 1 tablet by mouth once d* OMEPRAZOLE 20 MG CAPSULE,MG* Take 2 capsules by mouth once* PERFLUTREN LIPID MICROSPHERES* Inject 1.3 mL intravenously a* PROMETHAZINE 25 MG TABLET Take 0.5-1 tablets by mouth e* TRAMADOL 50 MG TABLET Take 50 mg by mouth as needed. Problem List As Of Date 05/04/2018 Noted Resolved GENERAL OSTEOARTHROSIS [M15.9] More... BONE AND CARTILAGE DIS NOS [M89.9, M94.9] INVALID FOR* DIFFUS CYSTIC MASTOPATHY [N60.19] IRRITABLE COLON [K58.9] OBESITY NOS [E66.9] DEPRESSIVE DISORDER NEC [F32.9] More... 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 Other and unspecified noninfectious gastroenter*INVALID FOR* Prescriptions ordered this encounter Disp Refills Start End BUPROPION HCL SR 150 MG TABLET,12 HR* 30 t* 1 05/04/2018 Route: ORAL Sig: Take 1 tablet by mouth once daily. Follow-up and Disposition History Recorded Encounter Status:Closed by DASH ZHU CNP on 05/04/18 12 LEAD ELECTROCARDIOGRAM Observed: 04/27/2018 Status: F Source: [place] 9:12 AM [facility] REPOSITORY [facility] Cardiovascular Services [address] [place] [address] 12 Lead EKG 04/25/18 1121 MR#: [id number] Acct: [id number] Name: AMINA TOBAR Rep #: [id number] : 1950 67 From: Mick Kam MD Attending Dr: Status: DEP ER Ordering Dr: Jesus Cruz MD Date: 04/25/18 Location: ED Sex: F C Admitted: Test Reason : PALPS Blood Pressure : / mmHG Vent. Rate : 088 BPM Atrial Rate : 088 BPM P-R Int : 138 ms QRS Dur : 086 ms QT Int : 378 ms P-R-T Axes : 049 012 030 degrees QTc Int : 457 ms Normal sinus rhythm Nonspecific ST abnormality Abnormal ECG Confirmed by MICK KAM MD ([id number]), editor city ARIC LLANES ([id number]) on 04/27/2018 9:12:12 AM Referred By: Confirmed By:MICK KAM MD 04/27/18911 Date Mick Kam MD CC: MD Chris Cruz; Fiorella Brown MD Signed PROGRESS Observed: 04/26/2018 Status: COMPLETED Source: [place] 10:32 AM [facility] REPOSITORY HNO ID: [id number] Author: Dash (Selene Zhu Service: (none) Author Type: Nurse Practitioner Type: Progress Notes Filed: 04/26/2018 10:56 AM Note Text: CC: Patient presents with: ED Follow-up: elevated bp HPI Amina Tobar is a 67 year old female who presents today for [facility] ER follow up for elevated BP. Patient presented to [facility] ER 04/25/18 with complains of ongoing palpitations x2 months and sensation of not being able to catch her breath. She originally stopped at a local pharmacy where they took her BP with readings of 180/80 then presented to the ER. BP remained elevated at 180/81 in ER. EKG showed sinus rhythm. Labs were fairly unremarkable except WBC at 13 and TSH at 0.71. CXR negative for any acute process. Patient remained sinus rhythm on telemetry and was eventually discharged home with instructions to start daily ASA therapy. Today she indicates the same complaints of intermittent palpitations x2 months with symptoms of anxiety but does not feel anxious. Reports heightened emotions, crying easily. She reports her chest will occasionally feel funny and had episode of breathlessness yesterday, but did not require her inhaler. Also reports occasional head pressure, mostly with lying down and feeling shaky. She remains active, exercises regularly including spin classes. She is asymptomatic on exertion or during exercise. She denies fevers, chills, headaches, chest pains, SOB or wheezing. No significant changes in weight, but notes she is at the high end of her baseline and has been eating more potato chips. REVIEW OF SYSTEMS General: no fevers, no chills, no night sweats, no recurrent infections, no change in appetite, no change in energy and no significant changes in weight HEENT: no changes in hearing, no visual changes, no nose bleeds, no sinus or nasal problems Respiratory: no cough, no wheezing, no hemoptysis, See HPI Cardiovascular: no chest pain, no chest pressure and See HPI GI: No nausea, vomiting, or diarrhea Endocrine: no weight loss, no hair loss, no dry skin, no cold intolerance, no heat intolerance, no neck pain/pressure, no polyuria, no polyphagia, no polydipsia and See HPI Neurologic: No headache, weakness, numbness, tingling, neck stiffness, vertigo, dizziness, memory loss, syncope. PAST MEDICAL HISTORY Diagnosis Date - Allergic rhinitis, cause unspecified - Depressive disorder, not elsewhere classified with anxiety - Diffuse cystic mastopathy - Disorder of bone and cartilage, unspecified 05/2003 - Esophageal reflux - Generalized osteoarthrosis, unspecified site lumbar spine - Internal hemorrhoids without mention of complication - Irritable bowel syndrome - Obesity, unspecified - Other bursitis disorders right greater trochanter - Sciatica - Thyrotoxicosis without mention of goiter or other cause, without mention of thyrotoxic crisis or storm 1998 Hyperthyroidism/had radioactive iodine - Unspecified hypothyroidism PAST SURGICAL HISTORY Procedure Laterality Date - COLONOSCOP W/ OR W/O [facility] SPEC 07/02/07 - COLONOSCOP W/ OR W/O [facility] SPEC 04/09/14 Colonoscopy - EGD W/O OR W/BRUSH/WASH 12/1991 EGD - PAST SURGICAL HISTORY OF cataract surgery--right July 2015,left August 2015 - REMOVAL OF TONSILS,<12 Y/O Tonsillectomy/adenoidectomy - SIGMOIDOSCOPY FLEX DIAG Sigmoidoscopy, flexible ALLERGIES Axid [Nizatidine]; Cymbalta [Duloxetine]; Meridia [Sibutramine]; Sulfabenzamide MEDICATIONS albuterol HFA 90 mcg/actuation inhaler Inhale 2 Puffs as instructed every 6 hours as needed for Wheezing/Shortness of Breath. Cholecalciferol, Vitamin D3, (VITAMIN D) 1,000 unit cap Take 1,000 Units by mouth once daily. gabapentin (NEURONTIN) 300 mg capsule Take 1 capsule by mouth daily at bedtime. (Dr. Gaffney) hydroCHLOROthiazide (HYDRODIURIL, ESIDRIX) 50 mg tablet Take 0.5-1 tablets by mouth once daily. hydrocortisone 2.5 % cream Apply 1 application to affected area three times daily as needed. For rash on hand and extremities until rash resolves levothyroxine (SYNTHROID) 75 mcg tablet Take 1 tablet by mouth daily before breakfast. Except 1/2 tab Mon, Mon and Monday LORazepam (ATIVAN) 0.5 mg tab Take 0.5 mg by mouth at bedtime as needed. meloxicam (MOBIC) 15 mg tablet Take 1 tablet by mouth once daily as needed. (Dr. Gaffney) omeprazole (PRILOSEC) 20 mg capsule Take 2 capsules by mouth once daily. (Dr. Gaffney) traMADol (ULTRAM) 50 mg tablet Take 50 mg by mouth as needed. CALCIUM CARBONATE/VITAMIN D3 (VITAMIN D-3 ORAL) Take by mouth. FA/MV,CA,IRON,MIN/LYCOPENE/LUT (MULTIVITAL ORAL) Take by mouth. lisinopril (ZESTRIL, PRINIVIL) 10 mg tablet Take 1 tablet by mouth once daily. Magnesium 250 mg tab Take 250 mg by mouth once daily. perflutren lipid microspheres ([employer]) 1.1 mg/mL injection (to be provided with echo procedure) Inject 1.3 mL intravenously as directed. promethazine (PHENERGAN) 25 mg tablet Take 0.5-1 tablets by mouth every 6 hours as needed. FAMILY HISTORY Problem Relation Age of Onset - Diabetes Father also CAD/OK - Coronary Artery Disease Mother CABG at age 80 - Cancer Unknown aunt lung cancer Social History Substance Use Topics - Smoking status: Former Smoker Start date: 05/15/1986 - Smokeless tobacco: Never Used - Alcohol use 4.5 oz/week 3 Glasses of Wine (5oz) per week PHYSICAL EXAM BP 152/82 (BP Site: Left Arm, BP Position: Sitting, BP Cuff Size: Regular Adult) Pulse 80 Resp 16 Wt 83.5 kg (184 lb) BMI 34.77 kg/m? General Appearance: well appearing, in no acute distress, alert Pysch: mood and affect broad and appropriate Skin: Skin color, texture, turgor normal for age; Head: normocephalic, atraumatic Eyes: conjunctiva pink and moist, no icterus, sclera white, non-injected Lungs: lungs clear to auscultation. No wheezing, rhonchi, rales Heart: RRR without murmur, gallop, or rubs. No ectopy Bilateral Lower Extremities: No edema INFLUENZA(1) due on 01/13/2018 MAMMOGRAM due on 07/24/2018 ANNUAL PCP TEAM CHRONIC DISEASE VISIT due on 12/25/2018 DIABETES SCREEN due on 12/05/2020 DTAP,TDAP,TD(2 - Td) due on 09/08/2021 LIPID SCREEN due on 06/19/2022 COLORECTAL CANCER SCREENING,SEE MODIFIER due on 04/09/2024 BONE DENSITY Completed ADULT PREVNAR-13 Completed HEPATITIS C SCREENING Completed PNEUMOVAX AGE 65 AND OVER WITH 5YR LOOKBACK Completed ASSESSMENT/PLAN: 1. Essential hypertension - ICD9: 401.9, ICD10: I10 (primary diagnosis) - newly diagnosed - Begin lisinopril (Zestril/Prinivil) - Encouraged dietary sodium restriction/DASH diet - Recommended regular aerobic exercise. - Follow up in 1 month for BP recheck. - Goal of BP <130/80 - Recommended no refined sugar, low refined starch, healthy oil intake (olive oil), healthy protein (fish) along the lines of the Mediterranean diet. - ECHO - Additional follow up and possible stress test to be determined by imaging results 2. Acquired hypothyroidism - ICD9: 244.9, ICD10: E03.9 - Instructed patient on importance of taking on an empty stomach either first thing in the morning or at bedtime. - check TSH in 6 weeks - Decrease Synthroid dose to 0.075 mg with 1/2 tab Fri, Sat and Sun. - LEVOTHYROXINE 75 MCG TABLET - TSH BLD 3. Palpitations - ICD9: 785.1, ICD10: R00.2 - TSH on low end of expected norm, will adjust medications and watch for symptom improvement - Recheck in 6 weeks - MAGNESIUM BLD Dash Zhu APRN.CNP Prescription instructions reviewed with patient as applicable. Potential red flag symptoms discussed with the patient. Reviewed appropriate action plan to take if red flag symptoms occur. Patient agreeable to treatment plan. CNOV Observed: 04/26/2018 Status: COMPLETED Source: [place] 10:00 AM [facility] REPOSITORY Office Visit (INTMWS) AMINA TOBAR ([id number]) 1950 F NFR Date Time Provider Department 04/26/18 10:00 AM DASH ZHU ([facility]) INTMWS During your visit today, we recorded the following information about you: Pulse Respiration Blood pressure Weight 80/minute 16/minute 152/82 83.5 kg Dash Zhu APRN.CNP 04/26/2018 10:27 AM Signed Reminder repeat thyroid level in 6 weeks. Please notify office if you are unable to tolerate medications before your follow up. Start daily aspirin. Dash Zhu APRN.CNP 04/26/2018 10:56 AM Signed CC: Patient presents with: ED Follow-up: elevated bp HPI Amina Tobar is a 67 year old female who presents today for [facility] ER follow up for elevated BP. Patient presented to [facility] ER 04/25/18 with complains of ongoing palpitations x2 months and sensation of not being able to catch her breath. She originally stopped at a local pharmacy where they took her BP with readings of 180/80 then presented to the ER. BP remained elevated at 180/81 in ER. EKG showed sinus rhythm. Labs were fairly unremarkable except WBC at 13 and TSH at 0.71. CXR negative for any acute process. Patient remained sinus rhythm on telemetry and was eventually discharged home with instructions to start daily ASA therapy. Today she indicates the same complaints of intermittent palpitations x2 months with symptoms of anxiety but does not feel anxious. Reports heightened emotions, crying easily. She reports her chest will occasionally feel funny and had episode of breathlessness yesterday, but did not require her inhaler. Also reports occasional head pressure, mostly with lying down and feeling shaky. She remains active, exercises regularly including spin classes. She is asymptomatic on exertion or during exercise. She denies fevers, chills, headaches, chest pains, SOB or wheezing. No significant changes in weight, but notes she is at the high end of her baseline and has been eating more potato chips. REVIEW OF SYSTEMS General: no fevers, no chills, no night sweats, no recurrent infections, no change in appetite, no change in energy and no significant changes in weight HEENT: no changes in hearing, no visual changes, no nose bleeds, no sinus or nasal problems Respiratory: no cough, no wheezing, no hemoptysis, See HPI Cardiovascular: no chest pain, no chest pressure and See HPI GI: No nausea, vomiting, or diarrhea Endocrine: no weight loss, no hair loss, no dry skin, no cold intolerance, no heat intolerance, no neck pain/pressure, no polyuria, no polyphagia, no polydipsia and See HPI Neurologic: No headache, weakness, numbness, tingling, neck stiffness, vertigo, dizziness, memory loss, syncope. PAST MEDICAL HISTORY Diagnosis Date - Allergic rhinitis, cause unspecified - Depressive disorder, not elsewhere classified with anxiety - Diffuse cystic mastopathy - Disorder of bone and cartilage, unspecified 05/2003 - Esophageal reflux - Generalized osteoarthrosis, unspecified site lumbar spine - Internal hemorrhoids without mention of complication - Irritable bowel syndrome - Obesity, unspecified - Other bursitis disorders right greater trochanter - Sciatica - Thyrotoxicosis without mention of goiter or other cause, without mention of thyrotoxic crisis or storm 1998 Hyperthyroidism/had radioactive iodine - Unspecified hypothyroidism PAST SURGICAL HISTORY Procedure Laterality Date - COLONOSCOP W/ OR W/O [facility] SPEC 07/02/07 - COLONOSCOP W/ OR W/O [facility] SPEC 04/09/14 Colonoscopy - EGD W/O OR W/BRUSH/WASH 12/1991 EGD - PAST SURGICAL HISTORY OF cataract surgery--right July 2015,left August 2015 - REMOVAL OF TONSILS,<12 Y/O Tonsillectomy/adenoidectomy - SIGMOIDOSCOPY FLEX DIAG Sigmoidoscopy, flexible ALLERGIES Axid [Nizatidine]; Cymbalta [Duloxetine]; Meridia [Sibutramine]; Sulfabenzamide MEDICATIONS albuterol HFA 90 mcg/actuation inhaler Inhale 2 Puffs as instructed every 6 hours as needed for Wheezing/Shortness of Breath. Cholecalciferol, Vitamin D3, (VITAMIN D) 1,000 unit cap Take 1,000 Units by mouth once daily. gabapentin (NEURONTIN) 300 mg capsule Take 1 capsule by mouth daily at bedtime. (Dr. Gaffney) hydroCHLOROthiazide (HYDRODIURIL, ESIDRIX) 50 mg tablet Take 0.5-1 tablets by mouth once daily. hydrocortisone 2.5 % cream Apply 1 application to affected area three times daily as needed. For rash on hand and extremities until rash resolves levothyroxine (SYNTHROID) 75 mcg tablet Take 1 tablet by mouth daily before breakfast. Except 1/2 tab Mon, Mon and Monday LORazepam (ATIVAN) 0.5 mg tab Take 0.5 mg by mouth at bedtime as needed. meloxicam (MOBIC) 15 mg tablet Take 1 tablet by mouth once daily as needed. (Dr. Gaffney) omeprazole (PRILOSEC) 20 mg capsule Take 2 capsules by mouth once daily. (Dr. Gaffney) traMADol (ULTRAM) 50 mg tablet Take 50 mg by mouth as needed. CALCIUM CARBONATE/VITAMIN D3 (VITAMIN D-3 ORAL) Take by mouth. FA/MV,CA,IRON,MIN/LYCOPENE/LUT (MULTIVITAL ORAL) Take by mouth. lisinopril (ZESTRIL, PRINIVIL) 10 mg tablet Take 1 tablet by mouth once daily. Magnesium 250 mg tab Take 250 mg by mouth once daily. perflutren lipid microspheres (DEFINITY) 1.1 mg/mL injection (to be provided with echo procedure) Inject 1.3 mL intravenously as directed. promethazine (PHENERGAN) 25 mg tablet Take 0.5-1 tablets by mouth every 6 hours as needed. FAMILY HISTORY Problem Relation Age of Onset - Diabetes Father also CAD/OK - Coronary Artery Disease Mother CABG at age 80 - Cancer Unknown aunt lung cancer Social History Substance Use Topics - Smoking status: Former Smoker Start date: 05/15/1986 - Smokeless tobacco: Never Used - Alcohol use 4.5 oz/week 3 Glasses of Wine (5oz) per week PHYSICAL EXAM BP 152/82 (BP Site: Left Arm, BP Position: Sitting, BP Cuff Size: Regular Adult) Pulse 80 Resp 16 Wt 83.5 kg (184 lb) BMI 34.77 kg/m? General Appearance: well appearing, in no acute distress, alert Pysch: mood and affect broad and appropriate Skin: Skin color, texture, turgor normal for age; Head: normocephalic, atraumatic Eyes: conjunctiva pink and moist, no icterus, sclera white, non-injected Lungs: lungs clear to auscultation. No wheezing, rhonchi, rales Heart: RRR without murmur, gallop, or rubs. No ectopy Bilateral Lower Extremities: No edema INFLUENZA(1) due on 01/13/2018 MAMMOGRAM due on 07/24/2018 ANNUAL PCP TEAM CHRONIC DISEASE VISIT due on 12/25/2018 DIABETES SCREEN due on 12/05/2020 DTAP,TDAP,TD(2 - Td) due on 09/08/2021 LIPID SCREEN due on 06/19/2022 COLORECTAL CANCER SCREENING,SEE MODIFIER due on 04/09/2024 BONE DENSITY Completed ADULT PREVNAR-13 Completed HEPATITIS C SCREENING Completed PNEUMOVAX AGE 65 AND OVER WITH 5YR LOOKBACK Completed ASSESSMENT/PLAN: 1. Essential hypertension - ICD9: 401.9, ICD10: I10 (primary diagnosis) - newly diagnosed - Begin lisinopril (Zestril/Prinivil) - Encouraged dietary sodium restriction/DASH diet - Recommended regular aerobic exercise. - Follow up in 1 month for BP recheck. - Goal of BP <130/80 - Recommended no refined sugar, low refined starch, healthy oil intake (olive oil), healthy protein (fish) along the lines of the Mediterranean diet. - ECHO - Additional follow up and possible stress test to be determined by imaging results 2. Acquired hypothyroidism - ICD9: 244.9, ICD10: E03.9 - Instructed patient on importance of taking on an empty stomach either first thing in the morning or at bedtime. - check TSH in 6 weeks - Decrease Synthroid dose to 0.075 mg with 1/2 tab Fri, Sat and Sun. - LEVOTHYROXINE 75 MCG TABLET - TSH BLD 3. Palpitations - ICD9: 785.1, ICD10: R00.2 - TSH on low end of expected norm, will adjust medications and watch for symptom improvement - Recheck in 6 weeks - MAGNESIUM BLD Dash Zhu APRN.SPOKE MAKER Prescription instructions reviewed with patient as applicable. Potential red flag symptoms discussed with the patient. Reviewed appropriate action plan to take if red flag symptoms occur. Patient agreeable to treatment plan. Referring Provider: SELF [[id number]] Allergies As of Date: 04/26/2018 Noted Allergy Reaction AXID (NIZATIDINE) 03/30/2005 4 - Hives CYMBALTA (DULOXETINE) 08/19/2009 Comments: Insomnia MERIDIA (SIBUTRAMINE) 03/30/2005 2 - Rash SULFABENZAMIDE 03/30/2005 Comments: red mouth Date Reviewed: 04/26/2018 Reviewed by: Antony Payne LPN - Fully Assessed Reason for Visit: ED Follow-up [821] Cmt: elevated bp Primary Visit Diagnosis:Essential hypertension [I10] Other Visit Diagnoses:Acquired hypothyroidism [E03.9] Palpitations [R00.2] Order(s):lisinopril (ZESTRIL, PRINIVIL) 10 mg tabletTake 1 tablet by mouth once daily.Disp: 30 tabletRfl: 1 levothyroxine (SYNTHROID) 75 mcg tabletTake 1 tablet by mouth daily before breakfast. Except 1/2 tab Mon, Mon and MondayDisp: 90 tabletRfl: 3 ECHO [[id number]] Order #: [id number]: 1 FUTURE perflutren lipid microspheres (DEFINITY) 1.1 mg/mL injection (to be provided with echo procedure)Inject 1.3 mL intravenously as directed.Disp: 1.3 mLRfl: 0 TSH BLD [SQTSH] Order #: [id number] FUTURE MAGNESIUM BLD [SQMG1] Order #: [id number] FUTURE Prescriptions as of 04/26/2018 Sig: ALBUTEROL SULFATE HFA 90 MCG/* Inhale 2 Puffs as instructed * CHOLECALCIFEROL (VITAMIN D3) * Take 1,000 Units by mouth onc* GABAPENTIN 300 MG CAPSULE Take 1 capsule by mouth daily* HYDROCHLOROTHIAZIDE 50 MG TAB* Take 0.5-1 tablets by mouth o* HYDROCORTISONE 2.5 % TOPICAL * Apply 1 application to affect* LEVOTHYROXINE 75 MCG TABLET Take 1 tablet by mouth daily * LORAZEPAM 0.5 MG TABLET Take 0.5 mg by mouth at bedti* MELOXICAM 15 MG TABLET Take 1 tablet by mouth once d* OMEPRAZOLE 20 MG CAPSULE,MG* Take 2 capsules by mouth once* TRAMADOL 50 MG TABLET Take 50 mg by mouth as needed. VITAMIN D-3 ORAL Take by mouth. MULTIVITAL ORAL Take by mouth. LISINOPRIL 10 MG TABLET Take 1 tablet by mouth once d* MAGNESIUM 250 MG TABLET Take 250 mg by mouth once ysabel* PERFLUTREN LIPID MICROSPHERES* Inject 1.3 mL intravenously a* PROMETHAZINE 25 MG TABLET Take 0.5-1 tablets by mouth e* Medication notes this encounter PROMETHAZINE 25 MG TABLET >> Antony Payne LPN 04/26/2018 9:48 AM >> ANTONY PAYNE LPN [facility] Apr 26, 2018 9:48 AM Not taking Problem List As Of Date 04/26/2018 Noted Resolved GENERAL OSTEOARTHROSIS [M15.9] More... BONE AND CARTILAGE DIS NOS [M89.9, M94.9] INVALID FOR* DIFFUS CYSTIC MASTOPATHY [N60.19] IRRITABLE COLON [K58.9] OBESITY NOS [E66.9] DEPRESSIVE DISORDER NEC [F32.9] More... 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 Other and unspecified noninfectious gastroenter*INVALID FOR* Other instructions from your clinician: Reminder repeat thyroid level in 6 weeks. Please notify office if you are unable to tolerate medications before your follow up. Start daily aspirin. Prescriptions ordered this encounter Disp Refills Start End LISINOPRIL 10 MG TABLET 30 t* 1 04/26/2018 Route: ORAL Sig: Take 1 tablet by mouth once daily. LEVOTHYROXINE 75 MCG TABLET 90 t* 3 04/26/2018 Class: Med Update Route: ORAL Sig: Take 1 tablet by mouth daily before breakfast. Except 1/2 tab Mon, Mon and Monday PERFLUTREN LIPID MICROSPHERES 1.1 MG* 1.3 * 0 04/26/2018 04/26/2019 Class: In Office Route: INTRAVENOUS Sig: Inject 1.3 mL intravenously as directed. Medications Discontinued During This Encounter levothyroxine (SYNTHROID) 75 mcg tab* 90 t* 3 12/25/2017 04/26/2018 Route: ORAL Sig: Take 1 tablet by mouth daily before breakfast. Except hold weekly Monday doses Disc: Reason for discontinue is not on file. Disposition: Return in about 4 weeks (around 05/24/2018). Follow-up and Disposition History Recorded Encounter Status:Closed by DASH ZHU CNP on 04/26/18 EMERGENCY DEPARTMENT Observed: 04/25/2018 Status: F Source: [place] SUMMARY 5:10 PM [facility] REPOSITORY [facility] Medical Records Department [address] [place] [address] Emergency Department Summary 04/25/18 1144 MR#: [id number] Acct: [id number] Name: AMINA TOBAR Rep #: [id number] : 1950 67 From: Jesus Cruz MD PCP: Fiorella Brown MD Status: DEP ER - ER Visit Summary Date of Service: 04/25/18 Chief Complaint: [] Palpitations for 2 months History of Present Illness: The patient is a 67 F [] onset palpitations for 2 months, she has had no fever no cough no chest pain no history of OK PE DVT, normal bowel bladder habits. She indicates she is actually able to exercise at the [facility] riding a spinning bike getting on and off of it during exercise associated with that activity and does not feel sick when she does these activities she indicates today she had persistent sense of palpitations she had no syncope and she came in for evaluation She indicates she went to a pharmacy and they took her blood pressure was 180/80 range she does not known to have hypertension Physical Examination: [] 180/81 heart rate 80 on the monitor sinus rhythm General, no distress resting comfortably HEENT is generally unremarkable The neck is supple no adenopathy Cardiovascular, regular rate and rhythm Lungs, clear bilateral Abdomen, soft nontender Extremities, no clubbing cyanosis or edema Neurologic, awake alert answering questions appropriately moving all 4 extremities The patient really has no risk factors she is asked that we check her thyroid studies as she has a history of hyperthyroid was treated with radioablation therapy and she is currently on thyroid replacement she has no history of OK PE or DVT her so she is in sinus rhythm here EKG shows a sinus rhythm nothing acute we will keep her on the monitor screening labs Test Results: [] Emergency Department Course and Treatment: [] The patient's screening labs including her thyroid studies are all within normal range generally see those reports, her white count was 13, chest x-ray unremarkable per radiology, see that report, the patient is remained in a sinus rhythm here in the monitor resting comfortably no recurrence of the palpitations I have explained to the exact etiology of the above is unclear at this time we have asked her to basically rest follow-up with her family doctors and outpatient providers for further management options and return for change in symptoms she is comfortable this plan asked her to take 2 baby aspirin a day until she follows up and she will do so again she understands need for follow-up given the long differential Treatment Plan: [] Disposition: [] Home stable Impression: [] Palpitations etiology unclear This note was generated with [employer]ENT[employer] SRO dictation software. It may contain incorrect words, spelling, and punctuation that were not noted in review of the chart prior to signing ED Disposition - Plan for ED Patient: Chief Complaint: Palpitations Referrals: Fiorella Brown MD [Primary Care Provider] - What to do if you have Problems For any increased pain, shortness of breath, bleeding, nausea or vomiting, chest pain, or any unexpected problems, contact your Primary Care Provider. Call [email or web address] ([phone]) or report to the closest Emergency Room. Call 911 if necessary. 04/25/18 5710 <Electronically signed by Jesus Cruz MD> Date Jesus Cruz MD Cosigner Signature (If Indicated): Date CC: Fiorella Brown MD DISCHARGE INSTRUCTION Observed: 04/25/2018 Status: F Source: [place] 12:55 PM [facility] REPOSITORY [facility] Medical Records Department [address] [place] [address] Discharge Instruction 04/25/18 1255 MR#: [id number] Acct: [id number] Name: AMINA TOBAR Rep #: [id number] : 1950 67 From: Jesus Cruz MD PCP: Fiorella Brown MD Status: REG ER ED Disposition - Plan for ED Patient: Chief Complaint: Palpitations Instructions: ED Palpitations Referrals: Fiorella Brown MD [Primary Care Provider] - Additional Instructions: Take 2 baby aspirin a day make sure you follow-up with your doctors for further outpatient management What to do if you have Problems For any increased pain, shortness of breath, bleeding, nausea or vomiting, chest pain, or any unexpected problems, contact your Primary Care Provider. Call [facility] ([phone]) or report to the closest Emergency Room. Call 911 if necessary. 04/25/18 1255 <Electronically signed by Jesus Cruz MD> Date Jesus Cruz MD Cosigner Signature (If Indicated): Date CC: Fiorella Brown MD CBC W/DIFF, AUTOMATED Collected: 04/25/2018 Status: F Source: [place] 11:45 AM [facility] REPOSIT[facility] TYPE CODE TESTS RESULT OUT OF RANGE REFERENCE UNITS LAB L100.1000 4.4-11.0 K/mm3 High WBC 13.4 LAB L100.1200 4.2-5.4 M/mm3 Normal RBC 4.89 LAB L100.1300 12.0-15.0 g/dl Normal HGB 14.9 LAB L100.1400 37-47 % Normal HCT 44.4 LAB L100.1500 81-99 fL Normal MCV 90.8 LAB L100.1600 27.0-32.0 pg Normal MCH 30.5 LAB L100.1700 32-36 g/gl Normal MCHC 33.6 LAB L100.1810 11.6-14.6 % Normal RDW CV 12.8 LAB L100.1820 35.1-43.9 fl Normal RDW SD 41.9 LAB L100.1900 150-450 K/mm3 Normal PLT 324 LAB L100.2000 6.2-12.0 fl Normal MPV 10.1 LAB L100.2100 47-70 % Normal NEUT% 67.3 LAB L100.2200 19-41 % Normal LY% 23.2 LAB L100.2300 0-10 % Normal MONO% 8.5 LAB L100.2400 0-5 % Normal EO% 0.3 LAB L100.2500 0-1 % Normal BASO% 0.3 LAB L100.2550 0.0-0.9 % Normal IM GRAN % 0.400 Result Comment: IG% - Immature Granulocytes (promyelocytes, myelocytes and metamyelocytes) > 1% indicates that a LEFT SHIFT is Present. LAB L100.2620 2.0-7.7 X10 3/uL High Absolute Neut 9.0 LAB L100.2720 0.83-4.51 X10 3/ul Normal Absolute Lymph 3.10 Performed By: #### L100.0100 #### [facility] [address] [place], [place], [address] BASIC METABOLIC Collected: 04/25/2018 Status: F Source: [place] PROFILE (BMP) 11:45 AM [facility] REPOSIT[facility] Order Comment: 'TROP' Serial specimen #1, #2, #3, or #4: 1 TYPE CODE TESTS RESULT OUT OF RANGE REFERENCE UNITS LAB L501.0100 74-106 mg/dL Normal GLU 100 Result Comment: Fasting Glucose result from 100 to 125 mg/dL suggests IMPAIRED HOMEOSTASIS per A.D.A. criteria. Please note revised GLUCOSE reference range effective 2017. LAB L501.1000 7-18 mg/dL High BUN 24 LAB L501.1100 0.55-1.02 mg/dL Normal CREAT,SERUM 0.90 Result Comment: The validity of the calculated GFR AND GFRAA in patients over 70 years has not been determined. Clinical correlation is essential. LAB L501.1110 >60 mL/min Normal EST GFR 66 Result Comment: Non- GFR Calc LAB L501.1115 >60 mL/min Normal EST GFR - AA 80 Result Comment: GFR Calc LAB L501.1255 ml/min Normal Estimated CRCL 47.32 LAB L501.1300 10-20 RATIO High BUN/CRE 26.5 LAB L501.2200 8.5-10 mg/dL Normal .1 CA 8.7 LAB L501.5300 136-14 mmol/L Normal 5 NA 141 LAB L501.5600 3.5-5. mmol/L Low 1 K 3.4 LAB L501.5900 98-107 mmol/L Normal CL 104 LAB L501.6100 21.0-3 mmol/L Normal 2.0 CO2 27.0 LAB L501.6200 5-15 Normal GAP 10 Performed By: #### L500.2500, L501.4010 #### [facility] [address] [place], [address] TROPONIN-I Collected: 04/25/2018 Status: F Source: [place] 11:45 AM [facility] Order Comment: 'TROP' Serial specimen #1, #2, #3, or #4: 1 TYPE CODE TESTS RESULT OUT OF RANGE REFERENCE UNITS LAB L501.4010 <0.045 ng/mL Normal < 0.015 TROPONIN-I Result Comment: TROPONIN-I EXPECTED VALUES <0.045 Negative 0.045 - 0.590 Consistent with Cardiac Damage > OR = 0.600 Critical Value Not every elevated troponin is indicative of OK. These values should be used with clinical judgement in examining the patient's clinical picture for diagnosis. To establish a diagnosis of OK versus myocardial injury, there must be a demonstrated rise and/or fall in the troponin values, in addition to ischemic symptoms, EKG changes, new regional wall motion abnormality, and/or angiographical evidence. PLEASE NOTE: REFERENCE RANGES EDITED 17 Performed By: #### L500.2500, L501.4010 #### [facility] [address] [place], [address] BNP,B-TYPE NATRIURETIC Collected: 04/25/2018 Status: F Source: [place] PEPTIDE 11:45 AM [facility] REPOSIT[facility] TYPE CODE TESTS RESULT OUT OF RANGE REFERENCE UNITS LAB L503.6620 0-100 pg/mL Normal B-TYPE 23.8 TARUN PEP Performed By: #### L503.6620 #### [facility] [address] [place], [address] T4 TOTAL, THYROXIN Collected: 04/25/2018 Status: F Source: [place] 11:45 AM [facility] REPOS[facility] TYPE CODE TESTS RESULT OUT OF RANGE REFERENCE UNITS LAB L501.9310 4.8-13.9 ug/dL T4 Normal THYROXIN 11.3 Performed By: #### L501.9310, L501.9520 #### [facility] [place], [address] THYROID STIM HORMONE Collected: 04/25/2018 Status: F Source: [place] (TSH) 11:45 AM [facility] REPOSIT[facility] TYPE CODE TESTS RESULT OUT OF RANGE REFERENCE UNITS LAB L501.9520 0.358-3.74 uIU/mL Normal TSH 0.71 Performed By: #### L501.9310, L501.9520 #### [facility] [address] [facility] [facility] [place], [address] CHEST 1 VIEW Observed: 04/25/2018 Status: F Source: [place] (PORTABLE) 11:28 AM [facility] REPOSITORY [facility] Imaging Services [address] [place] [address] Chest 1 View (Portable) MR#: [id number] Acct: [id number] Name: AMINA TOBAR Rep #: [id number] : 1950 F 67 From: Randal Song MD PCP: Fiorella Brown MD Status: REG ER Study: Chest 1 View (Portable) Date of Exam: 04/25/18 Exam# [id number] Ordering Dr: Jesus Cruz MD STUDY: X-RAY CHEST REASON FOR EXAM: Female, 67 years old. Chest pain and short of breath. TECHNIQUE: Single AP portable view of the chest. COMPARISON: None. FINDINGS: The lungs are clear and expanded. There is no demonstrated pleural abnormality. Normal size heart. Normal mediastinum and ronni. Normal visualized pulmonary arteries. Normal visualized aortic arch and descending thoracic aorta. There are diffuse degenerative changes of the visualized thoracic spine. Normal visualized ribs, clavicles, and shoulders. There is no demonstrated abnormality of the visualized soft tissue structures of the upper abdomen. RAD/Chest 1 View (Portable) IMPRESSION: No acute chest disease. Electronically Signed: Randal Song MD at 12:07 EST , Service support , CC: MD Chris rCuz; Fiorella Brown MD National Account Director: Signed PROGRESS Observed: 12/25/2017 Status: COMPLETED Source: [place] 11:25 AM [facility] REPOSITORY HNO ID: [id number] Author: Dash Zhu Service: (none) Author Type: Nurse Practitioner Type: Progress Notes Filed: 12/25/2017 12:22 PM Note Text: CC: Patient presents with: Recheck: Yearly follow up HPI Amina Tobar is a 66 year old female who presents today for yearly follow up and review of labs. Completed session 1 of 3 electroshock therapy for left plantar fascitis this morning. Reports foot is a little sore, but she is doing okay. She did feel slightly rushed to make it to this appointment and notes her blood pressure is mildly elevated. Hypothyroidism. She is doing well on her current dose of Synthroid. Denies fatigue, cold intolerance, constipation. Notes intermittent swelling in the feet, mostly after long days of being up on her feet. TSH (uU/mL) Date Value 12/05/2017 1.320 06/19/2017 1.220 ) GERD. Since our last visit 1 year ago she has been doing well. Current symptoms include none. on therapy of omeprazole (Prilosec) QD. recently increased her Prilosec to 40mg daily. Sleep: Takes Ativan on rare occasion for sleep. Normally she does okay with sleep ~7 hours a night. Notes her busy days makes it more difficult to relax and fall asleep. Reports during the summer she is on her feet a lot. She volunteers, works at [employer] in a [employer] and works out at the [employer] almost every day. Component Latest Ref Rng AND Units 12/05/2017 Protein, Total 6.3 - 8.0 g/dL 7.0 Albumin 3.9 - 4.9 g/dL 4.1 Calcium 8.5 - 10.2 mg/dL 9.6 Bilirubin, Total 0.2 - 1.3 mg/dL 0.4 Alkaline Phosphatase 32 - 117 U/L 80 AST 13 - 35 U/L 23 Glucose 74 - 99 mg/dL 115 (H) BUN 7 - 21 mg/dL 16 Creatinine 0.58 - 0.96 mg/dL 0.90 Sodium 136 - 144 mmol/L 140 Potassium 3.7 - 5.1 mmol/L 4.2 Chloride 97 - 105 mmol/L 102 CO2 22 - 30 mmol/L 26 Anion Gap 9 - 18 mmol/L 12 ALT 7 - 38 U/L 11 eGFR- >60 eGFR-All Other Races . >60 Hemoglobin A1C 4.3 - 5.6 % 5.8 (H) Estimated Average Glucose mg/dL 120 Free T4 0.9 - 1.7 ng/dL 1.3 TSH 0.400 - 5.500 uU/mL 1.320 Magnesium 1.7 - 2.3 mg/dL 1.9 Vitamin D 25 Hydroxy 31.0 - 80.0 ng/mL 22.2 (L) REVIEW OF SYSTEMS General: no fevers, no chills, no night sweats, no change in appetite, no change in energy and no significant changes in weight HEENT: no changes in hearing, no visual changes, no nose bleeds Neck: no lumps, no pain and no swelling Respiratory: no wheezing, no shortness of breath, no hemoptysis, See HPI Cardiovascular: no chest pressure, no palpitations and See HPI GI: No nausea, vomiting, or diarrhea and No heartburn or reflux symptoms : No history of dysuria, frequency or incontinence Skin: Negative for lesions, rash, and itching, Endocrine: no fatigue, no weight gain, no weight loss, no dry skin, no cold intolerance, no heat intolerance, no neck pain/pressure, no polyuria, no polyphagia and no polydipsia Neurologic: No headache, weakness, neck stiffness, tremor, vertigo, dizziness, memory loss, syncope. Positive: intermittent numbness/tingling to BLE from sciatica. PAST MEDICAL HISTORY Diagnosis Date - Allergic rhinitis, cause unspecified - Depressive disorder, not elsewhere classified with anxiety - Diffuse cystic mastopathy - Disorder of bone and cartilage, unspecified 05/2003 - Esophageal reflux - Generalized osteoarthrosis, unspecified site lumbar spine - Internal hemorrhoids without mention of complication - Irritable bowel syndrome - Obesity, unspecified - Other bursitis disorders right greater trochanter - Sciatica - Thyrotoxicosis without mention of goiter or other cause, without mention of thyrotoxic crisis or storm 1998 Hyperthyroidism/had radioactive iodine - Unspecified hypothyroidism PAST SURGICAL HISTORY Procedure Laterality Date - COLONOSCOP W/ OR W/O [facility] SPEC 07/02/07 - COLONOSCOP W/ OR W/O [facility] SPEC 04/09/14 Colonoscopy - EGD W/O OR W/BRUSH/WASH 12/1991 EGD - PAST SURGICAL HISTORY OF cataract surgery--right July 2015,left August 2015 - REMOVAL OF TONSILS,<12 Y/O Tonsillectomy/adenoidectomy - SIGMOIDOSCOPY FLEX DIAG Sigmoidoscopy, flexible ALLERGIES Axid [Nizatidine]; Cymbalta [Duloxetine]; Meridia [Sibutramine]; Sulfabenzamide MEDICATIONS promethazine (PHENERGAN) 25 mg tablet Take 0.5-1 tablets by mouth every 6 hours as needed. LORazepam (ATIVAN) 0.5 mg tab Take 1 tablet by mouth at bedtime as needed. levothyroxine (SYNTHROID) 75 mcg tablet Take 1 tablet by mouth daily before breakfast. Except hold weekly Monday doses hydroCHLOROthiazide (HYDRODIURIL, ESIDRIX) 50 mg tablet Take 0.5-1 tablets by mouth once daily. meloxicam (MOBIC) 15 mg tablet Take 1 tablet by mouth once daily as needed. (Dr. Gaffney) omeprazole (PRILOSEC) 20 mg capsule Take 1 capsule by mouth once daily. (Dr. Gaffney) Magnesium 250 mg tab Take 250 mg by mouth once daily. hydrocortisone 2.5 % cream Apply 1 application to affected area three times daily as needed. For rash on hand and extremities until rash resolves CALCIUM CARBONATE/VITAMIN D3 (VITAMIN D-3 ORAL) Take by mouth. gabapentin (NEURONTIN) 300 mg capsule Take 1 capsule by mouth daily at bedtime. (Dr. Gaffney) FA/MV,CA,IRON,MIN/LYCOPENE/LUT (MULTIVITAL ORAL) Take by mouth. Cholecalciferol, Vitamin D3, (VITAMIN D) 1,000 unit cap Take 1,000 Units by mouth once daily. albuterol HFA 90 mcg/actuation inhaler Inhale 2 Puffs as instructed every 6 hours as needed for Wheezing/Shortness of Breath. FAMILY HISTORY Problem Relation Age of Onset - Diabetes Father also CAD/OK - Coronary Artery Disease Mother CABG at age 80 - Cancer Unknown aunt lung cancer Social History Substance Use Topics - Smoking status: Former Smoker Start date: 05/15/1986 - Smokeless tobacco: Never Used - Alcohol use 4.5 oz/week 3 Glasses of Wine (5oz) per week PHYSICAL EXAM BP 142/80 Pulse 81 Temp 36.2 ?C (97.1 ?F) (Temporal Artery) Resp 16 Wt 83.5 kg (184 lb) SpO2 98% BMI 34.77 kg/m? General Appearance: well appearing, in no acute distress, alert Skin: Skin color, texture, turgor normal for age; Head: normocephalic, atraumatic Eyes: conjunctiva pink and moist, no icterus, sclera white, non-injected Ears: external ears normal to inspection and palpation, canals clear, Left tympanic membrane normal. , R TM: dull Neck: symmetric without palpable nodules, No adenopathy Oropharynx: lips normal without lesions, tongue midline and normal, soft palate, uvula, and tonsils normal Lungs: Lungs clear to auscultation. No wheezing, rhonchi, rales Heart: RRR without murmur, gallop, or rubs. No ectopy Bilateral Lower Extremities: No deformities, edema, skin discoloration, clubbing or cyanosis. Good capillary refill. , Pulses: 2+ INFLUENZA(1) due on 01/13/2018 MAMMOGRAM due on 07/24/2018 DIABETES SCREEN due on 12/05/2020 DTAP,TDAP,TD(2 - Td) due on 09/08/2021 LIPID SCREEN due on 06/19/2022 COLORECTAL CANCER SCREENING,SEE MODIFIER due on 04/09/2024 BONE DENSITY Completed ADULT PREVNAR-13 Completed HEPATITIS C SCREENING Completed PNEUMOVAX AGE 65 AND OVER WITH 5YR LOOKBACK Completed ASSESSMENT/PLAN: 1. Acquired hypothyroidism - ICD9: 244.9, ICD10: E03.9 (primary diagnosis) - Reviewed most recent labs in detail with patient - Instructed patient on importance of taking on an empty stomach either first thing in the morning or at bedtime. - Follow up in 6 months - LEVOTHYROXINE 75 MCG TABLET 2. Gastroesophageal reflux disease without esophagitis - ICD9: 530.81, ICD10: K21.9 - Discussed lifestyle modifications including losing weight, limiting caffeine, no meals three hours before sleep and head of bed elevation - Continue treatment with Prilosec 40 mg QD - Follow up in 6months - OMEPRAZOLE 20 MG CAPSULE,DELAYED RELEASE 3. Sleep disturbance - ICD9: 780.50, ICD10: G47.9 - LORAZEPAM 0.5 MG TABLET 4. Elevated blood pressure reading without diagnosis of hypertension - ICD9: 796.2, ICD10: R03.0 Transient BP elevation, most likely stress/pain induced. Patient rushing this morning from another appointment and underwent procedure to her foot for plantar fascitis and currently experiencing some discomfort. - Encouraged dietary sodium restriction/DASH diet - Recommended regular aerobic exercise. - Recommend home blood pressure monitoring, to bring results in on next visit - Discussed need and benefit for weight loss. - Recheck in 2 weeks, sooner if needed. Patient declined nurse visit, has appointment on 01/09 for back injection. Patient to forward blood pressure reading at that time - Goal of BP <130/80 5. Vitamin D deficiency - ICD9: 268.9, ICD10: E55.9 - Increase vitamin D supplement to 4000 IUs daily, repeat labs in 3 months - VITAMIN D 25 HYDROXY Dash Zhu APRN.[place] Signed insurance reimbursement paper for confirmation of mammogram in 2018. Papers returned to patient for processing. Prescription instructions reviewed with patient as applicable. Potential red flag symptoms discussed with the patient. Reviewed appropriate action plan to take if red flag symptoms occur. Patient agreeable to treatment plan. CNOV Observed: 12/25/2017 Status: COMPLETED Source: [place] 11:20 AM [facility] REPOSITORY Office Visit (INTMWS) AMINA TOBAR ([id number]) 1950 F NFR Date Time Provider Department 12/25/17 11:20 AM DASH ZHU ([facility]) INTMWS During your visit today, we recorded the following information about you: Temperature Pulse Respiration Blood pressure 97.1 degrees 81/minute 16/minute 142/80 Weight 83.5 kg Dash Zhu APRN.CNP 12/25/2017 12:22 PM Signed CC: Patient presents with: Recheck: Yearly follow up HPI Amina Martinez Ekaterina is a 66 year old female who presents today for yearly follow up and review of labs. Completed session 1 of 3 electroshock therapy for left plantar fascitis this morning. Reports foot is a little sore, but she is doing okay. She did feel slightly rushed to make it to this appointment and notes her blood pressure is mildly elevated. Hypothyroidism. She is doing well on her current dose of Synthroid. Denies fatigue, cold intolerance, constipation. Notes intermittent swelling in the feet, mostly after long days of being up on her feet. TSH (uU/mL) Date Value 12/05/2017 1.320 06/19/2017 1.220 ) GERD. Since our last visit 1 year ago she has been doing well. Current symptoms include none. on therapy of omeprazole (Prilosec) QD. recently increased her Prilosec to 40mg daily. Sleep: Takes Ativan on rare occasion for sleep. Normally she does okay with sleep ~7 hours a night. Notes her busy days makes it more difficult to relax and fall asleep. Reports during the summer she is on her feet a lot. She volunteers, works at [employer] in a [employer] and works out at the [employer] almost every day. Component Latest Ref Rng AND Units 12/05/2017 Protein, Total 6.3 - 8.0 g/dL 7.0 Albumin 3.9 - 4.9 g/dL 4.1 Calcium 8.5 - 10.2 mg/dL 9.6 Bilirubin, Total 0.2 - 1.3 mg/dL 0.4 Alkaline Phosphatase 32 - 117 U/L 80 AST 13 - 35 U/L 23 Glucose 74 - 99 mg/dL 115 (H) BUN 7 - 21 mg/dL 16 Creatinine 0.58 - 0.96 mg/dL 0.90 Sodium 136 - 144 mmol/L 140 Potassium 3.7 - 5.1 mmol/L 4.2 Chloride 97 - 105 mmol/L 102 CO2 22 - 30 mmol/L 26 Anion Gap 9 - 18 mmol/L 12 ALT 7 - 38 U/L 11 eGFR- >60 eGFR-All Other Races . >60 Hemoglobin A1C 4.3 - 5.6 % 5.8 (H) Estimated Average Glucose mg/dL 120 Free T4 0.9 - 1.7 ng/dL 1.3 TSH 0.400 - 5.500 uU/mL 1.320 Magnesium 1.7 - 2.3 mg/dL 1.9 Vitamin D 25 Hydroxy 31.0 - 80.0 ng/mL 22.2 (L) REVIEW OF SYSTEMS General: no fevers, no chills, no night sweats, no change in appetite, no change in energy and no significant changes in weight HEENT: no changes in hearing, no visual changes, no nose bleeds Neck: no lumps, no pain and no swelling Respiratory: no wheezing, no shortness of breath, no hemoptysis, See HPI Cardiovascular: no chest pressure, no palpitations and See HPI GI: No nausea, vomiting, or diarrhea and No heartburn or reflux symptoms : No history of dysuria, frequency or incontinence Skin: Negative for lesions, rash, and itching, Endocrine: no fatigue, no weight gain, no weight loss, no dry skin, no cold intolerance, no heat intolerance, no neck pain/pressure, no polyuria, no polyphagia and no polydipsia Neurologic: No headache, weakness, neck stiffness, tremor, vertigo, dizziness, memory loss, syncope. Positive: intermittent numbness/tingling to BLE from sciatica. PAST MEDICAL HISTORY Diagnosis Date - Allergic rhinitis, cause unspecified - Depressive disorder, not elsewhere classified with anxiety - Diffuse cystic mastopathy - Disorder of bone and cartilage, unspecified 05/2003 - Esophageal reflux - Generalized osteoarthrosis, unspecified site lumbar spine - Internal hemorrhoids without mention of complication - Irritable bowel syndrome - Obesity, unspecified - Other bursitis disorders right greater trochanter - Sciatica - Thyrotoxicosis without mention of goiter or other cause, without mention of thyrotoxic crisis or storm 1998 Hyperthyroidism/had radioactive iodine - Unspecified hypothyroidism PAST SURGICAL HISTORY Procedure Laterality Date - COLONOSCOP W/ OR W/O [facility] SPEC 07/02/07 - COLONOSCOP W/ OR W/O [facility] SPEC 04/09/14 Colonoscopy - EGD W/O OR W/BRUSH/WASH 12/1991 EGD - PAST SURGICAL HISTORY OF cataract surgery--right July 2015,left August 2015 - REMOVAL OF TONSILS,<11 Y/O Tonsillectomy/adenoidectomy - SIGMOIDOSCOPY FLEX DIAG Sigmoidoscopy, flexible ALLERGIES Axid [Nizatidine]; Cymbalta [Duloxetine]; Meridia [Sibutramine]; Sulfabenzamide MEDICATIONS promethazine (PHENERGAN) 25 mg tablet Take 0.5-1 tablets by mouth every 6 hours as needed. LORazepam (ATIVAN) 0.5 mg tab Take 1 tablet by mouth at bedtime as needed. levothyroxine (SYNTHROID) 75 mcg tablet Take 1 tablet by mouth daily before breakfast. Except hold weekly Monday doses hydroCHLOROthiazide (HYDRODIURIL, ESIDRIX) 50 mg tablet Take 0.5-1 tablets by mouth once daily. meloxicam (MOBIC) 15 mg tablet Take 1 tablet by mouth once daily as needed. (Dr. Gaffney) omeprazole (PRILOSEC) 20 mg capsule Take 1 capsule by mouth once daily. (Dr. Gaffney) Magnesium 250 mg tab Take 250 mg by mouth once daily. hydrocortisone 2.5 % cream Apply 1 application to affected area three times daily as needed. For rash on hand and extremities until rash resolves CALCIUM CARBONATE/VITAMIN D3 (VITAMIN D-3 ORAL) Take by mouth. gabapentin (NEURONTIN) 300 mg capsule Take 1 capsule by mouth daily at bedtime. (Dr. Gaffney) FA/MV,CA,IRON,MIN/LYCOPENE/LUT (MULTIVITAL ORAL) Take by mouth. Cholecalciferol, Vitamin D3, (VITAMIN D) 1,000 unit cap Take 1,000 Units by mouth once daily. albuterol HFA 90 mcg/actuation inhaler Inhale 2 Puffs as instructed every 6 hours as needed for Wheezing/Shortness of Breath. FAMILY HISTORY Problem Relation Age of Onset - Diabetes Father also CAD/OK - Coronary Artery Disease Mother CABG at age 80 - Cancer Unknown aunt lung cancer Social History Substance Use Topics - Smoking status: Former Smoker Start date: 05/15/1986 - Smokeless tobacco: Never Used - Alcohol use 4.5 oz/week 3 Glasses of Wine (5oz) per week PHYSICAL EXAM BP 142/80 Pulse 81 Temp 36.2 ?C (97.1 ?F) (Temporal Artery) Resp 16 Wt 83.5 kg (184 lb) SpO2 98% BMI 34.77 kg/m? General Appearance: well appearing, in no acute distress, alert Skin: Skin color, texture, turgor normal for age; Head: normocephalic, atraumatic Eyes: conjunctiva pink and moist, no icterus, sclera white, non-injected Ears: external ears normal to inspection and palpation, canals clear, Left tympanic membrane normal. , R TM: dull Neck: symmetric without palpable nodules, No adenopathy Oropharynx: lips normal without lesions, tongue midline and normal, soft palate, uvula, and tonsils normal Lungs: Lungs clear to auscultation. No wheezing, rhonchi, rales Heart: RRR without murmur, gallop, or rubs. No ectopy Bilateral Lower Extremities: No deformities, edema, skin discoloration, clubbing or cyanosis. Good capillary refill. , Pulses: 2+ INFLUENZA(1) due on 01/13/2018 MAMMOGRAM due on 07/24/2018 DIABETES SCREEN due on 12/05/2020 DTAP,TDAP,TD(2 - Td) due on 09/08/2021 LIPID SCREEN due on 06/19/2022 COLORECTAL CANCER SCREENING,SEE MODIFIER due on 04/09/2024 BONE DENSITY Completed ADULT PREVNAR-13 Completed HEPATITIS C SCREENING Completed PNEUMOVAX AGE 65 AND OVER WITH 5YR LOOKBACK Completed ASSESSMENT/PLAN: 1. Acquired hypothyroidism - ICD9: 244.9, ICD10: E03.9 (primary diagnosis) - Reviewed most recent labs in detail with patient - Instructed patient on importance of taking on an empty stomach either first thing in the morning or at bedtime. - Follow up in 6 months - LEVOTHYROXINE 75 MCG TABLET 2. Gastroesophageal reflux disease without esophagitis - ICD9: 530.81, ICD10: K21.9 - Discussed lifestyle modifications including losing weight, limiting caffeine, no meals three hours before sleep and head of bed elevation - Continue treatment with Prilosec 40 mg QD - Follow up in 6months - OMEPRAZOLE 20 MG CAPSULE,DELAYED RELEASE 3. Sleep disturbance - ICD9: 780.50, ICD10: G47.9 - LORAZEPAM 0.5 MG TABLET 4. Elevated blood pressure reading without diagnosis of hypertension - ICD9: 796.2, ICD10: R03.0 Transient BP elevation, most likely stress/pain induced. Patient rushing this morning from another appointment and underwent procedure to her foot for plantar fascitis and currently experiencing some discomfort. - Encouraged dietary sodium restriction/DASH diet - Recommended regular aerobic exercise. - Recommend home blood pressure monitoring, to bring results in on next visit - Discussed need and benefit for weight loss. - Recheck in 2 weeks, sooner if needed. Patient declined nurse visit, has appointment on 01/09 for back injection. Patient to forward blood pressure reading at that time - Goal of BP <130/80 5. Vitamin D deficiency - ICD9: 268.9, ICD10: E55.9 - Increase vitamin D supplement to 4000 IUs daily, repeat labs in 3 months - VITAMIN D 25 HYDROXY Dash Zhu APRN.[place] Signed insurance reimbursement paper for confirmation of mammogram in 2018. Papers returned to patient for processing. Prescription instructions reviewed with patient as applicable. Potential red flag symptoms discussed with the patient. Reviewed appropriate action plan to take if red flag symptoms occur. Patient agreeable to treatment plan. Dash Zhu APRN.CNP 12/25/2017 12:02 PM Addendum Increase Vitamin D to 4000 IUs daily and we will recheck your Vitamin D in 3 months 03/27/2018. Please update us after the with your blood pressure readings before your back injection. Otherwise we may need to have you come in for a nurse visit. Referring Provider: SELF [[id number]] Allergies As of Date: 12/25/2017 Noted Allergy Reaction AXID (NIZATIDINE) 03/30/2005 4 - Hives CYMBALTA (DULOXETINE) 08/19/2009 Comments: Insomnia MERIDIA (SIBUTRAMINE) 03/30/2005 2 - Rash SULFABENZAMIDE 03/30/2005 Comments: red mouth Date Reviewed: 12/25/2017 Reviewed by: Danielle Draper Ma - Fully Assessed Reason for Visit: Recheck [92] Cmt: Yearly follow up Primary Visit Diagnosis:Acquired hypothyroidism [E03.9] Other Visit Diagnoses:Gastroesophageal reflux disease without esophagitis [K21.9] Sleep disturbance [G47.9] Elevated blood pressure reading without diagnosis of hypertension [R03.0] Vitamin D deficiency [E55.9] Order(s):levothyroxine (SYNTHROID) 75 mcg tabletTake 1 tablet by mouth daily before breakfast. Except hold weekly Monday dosesDisp: 90 tabletRfl: 3 hydroCHLOROthiazide (HYDRODIURIL, ESIDRIX) 50 mg tabletTake 0.5-1 tablets by mouth once daily.Disp: 90 tabletRfl: 3 LORazepam (ATIVAN) 0.5 mg tabTake 1 tablet by mouth at bedtime as needed for up to 30 days.Disp: 30 tabletRfl: 1 VITAMIN D 25 HYDROXY [SQVITD] Order #: [id number] FUTURE omeprazole (PRILOSEC) 20 mg capsuleTake 2 capsules by mouth once daily. (Dr. Gaffney)Disp: Rfl: Prescriptions as of 12/25/2017 Sig: LEVOTHYROXINE 75 MCG TABLET Take 1 tablet by mouth daily * HYDROCHLOROTHIAZIDE 50 MG TAB* Take 0.5-1 tablets by mouth o* LORAZEPAM 0.5 MG TABLET Take 1 tablet by mouth at bed* OMEPRAZOLE 20 MG CAPSULE,MG* Take 2 capsules by mouth once* PROMETHAZINE 25 MG TABLET Take 0.5-1 tablets by mouth e* MELOXICAM 15 MG TABLET Take 1 tablet by mouth once d* MAGNESIUM 250 MG TABLET Take 250 mg by mouth once ysabel* HYDROCORTISONE 2.5 % TOPICAL * Apply 1 application to affect* VITAMIN D-3 ORAL Take by mouth. GABAPENTIN 300 MG CAPSULE Take 1 capsule by mouth daily* MULTIVITAL ORAL Take by mouth. CHOLECALCIFEROL (VITAMIN D3) * Take 1,000 Units by mouth onc* ALBUTEROL SULFATE HFA 90 MCG/* Inhale 2 Puffs as instructed * Problem List As Of Date 12/25/2017 Noted Resolved GENERAL OSTEOARTHROSIS [M15.9] More... BONE AND CARTILAGE DIS NOS [M89.9, M94.9] INVALID FOR* DIFFUS CYSTIC MASTOPATHY [N60.19] IRRITABLE COLON [K58.9] OBESITY NOS [E66.9] DEPRESSIVE DISORDER NEC [F32.9] More... 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 Other and unspecified noninfectious gastroenter*INVALID FOR* Other instructions from your clinician: Increase Vitamin D to 4000 IUs daily and we will recheck your Vitamin D in 3 months 03/27/2018. Please update us after the 28 with your blood pressure readings before your back injection. Otherwise we may need to have you come in for a nurse visit. Prescriptions ordered this encounter Disp Refills Start End LEVOTHYROXINE 75 MCG TABLET 90 t* 3 12/25/2017 Route: ORAL Sig: Take 1 tablet by mouth daily before breakfast. Except hold weekly Monday doses HYDROCHLOROTHIAZIDE 50 MG TABLET 90 t* 3 12/25/2017 Route: ORAL Sig: Take 0.5-1 tablets by mouth once daily. LORAZEPAM 0.5 MG TABLET 30 t* 1 12/25/2017 01/24/2018 Class: Print RX Route: ORAL Sig: Take 1 tablet by mouth at bedtime as needed for up to 30 days. OMEPRAZOLE 20 MG CAPSULE,DELAYED REL* 12/25/2017 Class: Med Update Route: ORAL Sig: Take 2 capsules by mouth once daily. (Dr. Gaffney) Medications Discontinued During This Encounter traMADol (ULTRAM) 50 mg tablet 06/20/2016 12/25/2017 Class: Med Update Route: ORAL Sig: Take 1 tablet by mouth twice daily as needed for Pain. (Dr. Gaffney) Disc: Reason for discontinue is not on file. levothyroxine (SYNTHROID) 75 mcg tab* 90 t* 3 12/21/2016 12/25/2017 Route: ORAL Sig: Take 1 tablet by mouth daily before breakfast. Except hold weekly Monday doses Disc: Reason for discontinue is not on file. hydroCHLOROthiazide (HYDRODIURIL, ES* 90 t* 3 06/28/2016 12/25/2017 Route: ORAL Sig: Take 0.5-1 tablets by mouth once daily. Disc: Reason for discontinue is not on file. LORazepam (ATIVAN) 0.5 mg tab 30 t* 1 12/21/2016 12/25/2017 Class: Print RX Route: ORAL Sig: Take 1 tablet by mouth at bedtime as needed. Disc: Reason for discontinue is not on file. omeprazole (PRILOSEC) 20 mg capsule 06/20/2016 12/25/2017 Class: Med Update Route: ORAL Sig: Take 1 capsule by mouth once daily. (Dr. Gaffney) Disc: Reason for discontinue is not on file. Disposition: Return in about 6 months (around 06/27/2018). Follow-up and Disposition History Recorded Encounter Status:Closed by DASH ZHU CNP on 12/25/17 FREE T4 Collected: 12/05/2017 Status: F Source: [place] 8:54 AM [facility] REPOSITORY TYPE CODE TESTS RESULT OUT OF RANGE REFERENCE UNITS LAB FT4 0.9-1.7 ng/dL Free T4 1.3 Performed By: #### FT4, CMP, MG1, VITD, HBA1C #### [facility] [address] [place], [place] [address] COMP METABOLIC PANEL Collected: 12/05/2017 Status: F Source: [place] 8:54 AM [facility] REPOSITORY TYPE CODE TESTS RESULT OUT OF REFERENCE UNITS RANGE LAB TP 6.3-8.0 g/dL Protein, Total 7.0 LAB ALB 3.9-4.9 g/dL Albumin 4.1 LAB CA 8.5-10.2 mg/dL Calcium, Total 9.6 LAB TBIL 0.2-1.3 mg/dL Bilirubin, Total 0.4 LAB ALKP 32-117 U/L Alkaline Phosphatase 80 LAB AST 13-35 U/L AST 23 LAB GLU 74-99 mg/dL Glucose High 115 Result Comment: The [place] [employer] (ADA) provides guidance for cutoff values for fasting glucose and random glucose. The ADA defines fasting as no caloric intake for at least 8 hours. Fas ting plasma glucose results between 100 to 125 mg/dL indicate increased risk for diabetes (prediabetes). Fasting plasma glucose results greater than or equal to 126 mg/dL meet the criteria for diagnosis of diabetes. In the absence of unequivocal hyperglycemia, results should be confirmed by repeat testing. In a patient with classic symptoms of hyperglycemia or hyperglycemic crisis, random plasma glucose results greater than or equal to 200 mg/dL meet the criteria for diagnosis of diabetes. Reference: Standards of Medical Care in Diabetes 2016, [place] [employer]. Diabetes Care. 2016.39(Suppl 1). LAB BUN 7-21 mg/dL BUN 16 LAB CRET 0.58-0.96 mg/dL Creatinine 0.90 LAB NA 136-144 mmol/L Sodium 140 LAB K 3.7-5.1 mmol/L Potassium 4.2 LAB CL 97-105 mmol/L Chloride 102 LAB CO2 22-30 mmol/L CO2 26 LAB AGAP 9-18 mmol/L Anion Gap 12 LAB ALT 7-38 U/L ALT 11 LAB GFRAA eGFR- Amer. >60 LAB GFRNAA . eGFR-All Other Races >60 Result Comment: eGFR (Estimated GFR) Units of measure: mL/min/1.73 meters squared eGFR is derived from the reexpressed MDRD Study equation using the following parameters: serum creatinine, age, gender and race. The creatinine assay has been calibrated to be traceable to IDMS. An eGFR <60 mL/min/1.73m2 for >3 months is consistent with chronic kidney disease. Refer to KDOQI guidelines for clinical interpretation. In patients with unstable renal function, e.g. those with acute kidney injury, the eGFR may not accurately reflect actual GFR. Performed By: #### FT4, CMP, MG1, VITD, HBA1C #### [facility] [address] [place] [address] MAGNESIUM Collected: 12/05/2017 Status: F Source: [place] 8:54 AM [facility] REPOSITORY TYPE CODE TESTS RESULT OUT OF REFERENCE UNITS RANGE LAB MG 1.7-2.3 mg/dL Magnesium 1.9 Performed By: #### FT4, CMP, MG1, VITD, HBA1C #### [facility] [address] [place] [address] VITAMIN D 25 HYDROXY Collected: 12/05/2017 Status: F Source: [place] 8:54 AM [facility] REPOSITORY TYPE CODE TESTS RESULT OUT OF REFERENCE UNITS RANGE LAB VITD 31.0-80.0 ng/mL Low Vitamin D 25 22.2 Hydroxy Result Comment: Classification of 25 [place] Vitamin D status: Insufficiency/Moderate Deficiency: < or = 30 ng/mL Sufficiency/Optimal Levels: 31 to 80 ng/mL Toxicity: > 100 ng/mL Test performed by chemiluminescent immunoassay. Performed By: #### FT4, CMP, MG1, VITD, HBA1C #### [facility] [address] [place] [address] HEMOGLOBIN A1C Collected: 12/05/2017 Status: F Source: [place] 8:54 AM [facility] REPOSITORY TYPE CODE TESTS RESULT OUT OF REFERENCE UNITS RANGE LAB HGBA1C 4.3-5.6 % High Hemoglobin A1c 5.8 LAB HBA0 mg/dL Est. Average Glucose 120 Result Comment: eAG: (Estimated average glucose) is a calculated value from HgbA1c and is commissary representative of the average blood glucose level in the last 2-3 month period. Performed By: #### FT4, CMP, MG1, VITD, HBA1C #### [facility] [place] [address] TSH Collected: 12/05/2017 Status: F Source: [place] 8:54 AM [facility] REPOSITORY TYPE CODE TESTS RESULT OUT OF RANGE REFERENCE UNITS LAB TSH 0.400-5.500 uU/mL TSH 1.320 Performed By: #### TSH #### [facility] [address] [place] [address] SCREENING MAMM (CAD), Observed: 07/24/2017 Status: F Source: [place] 10:10 AM [facility] REPOSITORY [facility] Imaging Services [address] [place] [address] SCREENING MAMM (CAD), BILAT MR#: [id number] Acct: [id number] Name: AMINA TOBAR Rep #: [id number] : 1950 F 66 From: Victoriano Cordoba MD PCP: Fiorella Brown MD Status: REG CLI Study: SCREENING MAMM (CAD), BILAT Date of Exam: 07/24/17 Exam# [id number] Ordering Dr: Fiorella Brown MD MAMMOGRAPHY - BILATERAL SCREENING REASON FOR EXAM: Female, 66 years old. Routine annual screening examination. PERTINENT HISTORY: Non-contributory. TECHNIQUE: Digital bilateral breast kike (3D mammographic acquisition) in the CC and MLO projections. 2-D mediolateral oblique (MLO) and craniocaudad (CC) views of both breasts were obtained. CAD: Full Field Digital Mammography with Computer Added Detection was performed. COMPARISON: Comparison is made with prior study dated July 20, 2016 and July 14, 2015. FINDINGS: Breast Composition: There are scattered areas of fibroglandular density. There are no dominant masses or suspicious calcifications. Stable 5 mm well-defined nodule in the upper outer aspect of the left breast. Stable small bilateral benign-appearing axillary lymph nodes. No other significant abnormalities are identified. There has been no significant change since the prior study. HPBI/SCREENING MAMM (CAD), BILAT IMPRESSION: Stable bilateral screening mammogram. Yearly follow-up mammogram recommended. (A) ASSESSMENT CATEGORY: BIRADS Category 2: Benign. A letter regarding these results will be sent to the patient by the facility within 30 days. Approximately 10% of breast cancers are not detected by mammography. A normal mammogram should not delay biopsy of a clinically suspicious abnormality. [id number] Electronically Signed: Victoriano Cordoba MD at 12:30 EDT Tel [phone], Service support , CC: Fiorella Brown MD National Account Director: Signed PROGRESS Observed: 06/26/2017 Status: COMPLETED Source: [place] 9:04 AM [facility] REPOSITORY HNO ID: [id number] Author: Fiorella Brown Service: (none) Author Type: Physician Type: Progress Notes Filed: 07/14/2017 12:15 AM Note Text: Patient presents with: Recheck SUBJECTIVE: Amina Tobar is a 66 year old year old lady here today for 6 month follow up appointment for review of medical conditions. Noted left lower back strain (SI joint affected) Noted had bad bout of GI gastroenteritis --2 days of severe symptoms. Had some med for nausea and vomiting. Does not needs lorazepam very often. Just filled refill in May after December. 2 exercise classes in the AM. Also does weights and stretching and Cory. Likes spinning and walking. PAST MEDICAL HISTORY Diagnosis Date - Allergic rhinitis, cause unspecified - Depressive disorder, not elsewhere classified with anxiety - Diffuse cystic mastopathy - Disorder of bone and cartilage, unspecified 05/2003 - Esophageal reflux - Generalized osteoarthrosis, unspecified site lumbar spine - Internal hemorrhoids without mention of complication - Irritable bowel syndrome - Obesity, unspecified - Other bursitis disorders right greater trochanter - Sciatica - Thyrotoxicosis without mention of goiter or other cause, without mention of thyrotoxic crisis or storm 1998 Hyperthyroidism/had radioactive iodine - Unspecified hypothyroidism Current Outpatient Prescriptions: promethazine (PHENERGAN) 25 mg tablet Take 0.5-1 tablets by mouth every 6 hours as needed. LORazepam (ATIVAN) 0.5 mg tab Take 1 tablet by mouth at bedtime as needed. levothyroxine (SYNTHROID) 75 mcg tablet Take 1 tablet by mouth daily before breakfast. Except hold weekly Monday doses hydroCHLOROthiazide (HYDRODIURIL, ESIDRIX) 50 mg tablet Take 0.5-1 tablets by mouth once daily. traMADol (ULTRAM) 50 mg tablet Take 1 tablet by mouth twice daily as needed for Pain. (Dr. Gaffney) meloxicam (MOBIC) 15 mg tablet Take 1 tablet by mouth once daily as needed. (Dr. Gaffney) omeprazole (PRILOSEC) 20 mg capsule Take 1 capsule by mouth once daily. (Dr. Gaffney) Magnesium 250 mg tab Take 250 mg by mouth once daily. hydrocortisone 2.5 % cream Apply 1 application to affected area three times daily as needed. For rash on hand and extremities until rash resolves CALCIUM CARBONATE/VITAMIN D3 (VITAMIN D-3 ORAL) Take by mouth. gabapentin (NEURONTIN) 300 mg capsule Take 1 capsule by mouth daily at bedtime. (Dr. Gaffney) FA/MV,CA,IRON,MIN/LYCOPENE/LUT (MULTIVITAL ORAL) Take by mouth. Cholecalciferol, Vitamin D3, (VITAMIN D) 1,000 unit cap Take 1,000 Units by mouth once daily. albuterol HFA 90 mcg/actuation inhaler Inhale 2 Puffs as instructed every 6 hours as needed for Wheezing/Shortness of Breath. No current facility-administered medications for this visit. OBJECTIVE: BP 140/82 Pulse 82 Resp 14 Wt 79.4 kg (175 lb) BMI 33.07 kg/m2 Patient is alert, oriented times 3, no apparent distress, affect is bright, reactive. Last 5 Encounter BP Readings: Date: BP: 06/26/2017 140/82 02/13/2017 153/86 12/21/2016 140/82 06/20/2016 128/78 03/25/2016 130/80 Last 5 Encounter Wt Readings: Date: Wt: 06/26/2017 79.4 kg (175 lb) 02/13/2017 81 kg (178 lb 8 oz) 12/21/2016 83 kg (183 lb) 06/20/2016 81.6 kg (180 lb) 03/25/2016 80.7 kg (178 lb) Heart: Regular rate, rhythm, no murmurs, gallops, rubs. Lungs: Clear to auscultation, bilaterally, breathing non labored. Ext: No cyanosis, clubbing, or edema. Component Latest Ref Rng AND Units 06/06/2016 12/13/2016 06/19/2017 Glucose 74 - 99 mg/dL 111 (H) 115 (H) BUN 7 - 21 mg/dL 16 16 Creatinine 0.58 - 0.96 mg/dL 0.88 0.86 Sodium 136 - 144 mmol/L 142 141 Potassium 3.7 - 5.1 mmol/L 4.2 4.2 Chloride 97 - 105 mmol/L 103 103 CO2 22 - 30 mmol/L 26 25 Anion Gap 9 - 18 mmol/L 13 13 Calcium 8.5 - 10.2 mg/dL 9.4 9.5 eGFR- >60 >60 eGFR-All Other Races . >60 >60 WBC 3.70 - 11.00 k/uL 6.92 RBC 3.90 - 5.20 m/uL 4.73 Hemoglobin 11.5 - 15.5 g/dL 14.6 Hematocrit 36.0 - 46.0 % 44.2 MCV 80.0 - 100.0 fL 93.4 MCH 26.0 - 34.0 pG 30.9 MCHC 30.5 - 36.0 g/dL 33.0 RDW-CV 11.5 - 15.0 % 12.5 Platelet Count 150 - 400 k/uL 278 MPV 9.0 - 12.7 fL 10.5 Absolute nRBC <0.01 k/uL <0.01 Triglyceride <150 mg/dL 100 123 Cholesterol, Total <200 mg/dL 243 (H) 229 (H) HDL Cholesterol >39 mg/dL 75 65 VLDL Cholesterol <30 mg/dL 20 25 LDL Cholesterol <100 mg/dL 148 (H) 139 (H) Fasting Time hrs 10 5 TC:HDL Ratio <5.10 3.24 3.52 LDL:HDL Ratio <2.54 1.97 2.14 Non HDL Cholesterol <130 mg/dL 168 (H) 164 (H) Hemoglobin A1C 4.3 - 5.6 % 6.0 (H) 6.0 (H) Estimated Average Glucose mg/dL 126 126 TSH 0.400 - 5.500 uU/mL 0.944 0.206 (L) 1.220 Vitamin D 25 Hydroxy 31.0 - 80.0 ng/mL 23.4 (L) 26.4 (L) 25.7 (L) Free T4 0.9 - 1.7 ng/dL 1.2 Magnesium 1.7 - 2.3 mg/dL 1.7 ASSESSMENT AND PLAN: Encounter Diagnosis ICD-10-CM 1. Acquired hypothyroidism E03.9 2. Hyperlipemia, mixed E78.2 3. Vitamin D deficiency E55.9 VITAMIN D 25 HYDROXY 4. Gastroesophageal reflux disease without esophagitis K21.9 5. Class 1 obesity due to excess calories without serious comorbidity with body mass index (BMI) of 33.0 to 33.9 in adult E66.09 Z68.33 6. Visit for screening mammogram Z12.31 CAROLYN SCREENING 7. IFG (impaired fasting glucose) R73.01 HGB A1C COMP METABOLIC PANEL 8. Encounter for long-term current use of medication Z79.899 COMP METABOLIC PANEL MAGNESIUM BLD VITAMIN D 25 HYDROXY Above issues addressed with patient. Patient involved in shared decision making for management of her medical issues. History and medications reviewed. Epic updated as needed Refills taken care of and meds adjusted as indicated after reviewed history, exam and labs. Health Maintenance reviewed. Updated record and/or ordered tests as recorded. Encouraged on efforts at healthy diet and regular exercise and adequate sleep. Needs to keep working on diet and exercise with lifestyle changes for effective weight loss and DM prevention. The majority of the visit was spent counseling and/or coordinating care for the patient. [id number] time was at least 25 minutes. Fiorella Brown MD CNOV Observed: 06/26/2017 Status: COMPLETED Source: [place] 8:40 AM [facility] REPOSITORY Office Visit (INTMWS) AMINA TOBAR ([id number]) 1950 F NFR Date Time Provider Department 06/26/17 8:40 AM FIORELLA BROWN INTMWS During your visit today, we recorded the following information about you: Pulse Respiration Blood pressure Weight 82/minute 14/minute 130/80 79.4 kg Fiorella Brown MD 07/14/2017 12:15 AM Signed Patient presents with: Recheck SUBJECTIVE: Amina Tobar is a 66 year old year old lady here today for 6 month follow up appointment for review of medical conditions. Noted left lower back strain (SI joint affected) Noted had bad bout of GI gastroenteritis --2 days of severe symptoms. Had some med for nausea and vomiting. Does not needs lorazepam very often. Just filled refill in May after December. 2 exercise classes in the AM. Also does weights and stretching and Cory. Likes spinning and walking. PAST MEDICAL HISTORY Diagnosis Date - Allergic rhinitis, cause unspecified - Depressive disorder, not elsewhere classified with anxiety - Diffuse cystic mastopathy - Disorder of bone and cartilage, unspecified 05/2003 - Esophageal reflux - Generalized osteoarthrosis, unspecified site lumbar spine - Internal hemorrhoids without mention of complication - Irritable bowel syndrome - Obesity, unspecified - Other bursitis disorders right greater trochanter - Sciatica - Thyrotoxicosis without mention of goiter or other cause, without mention of thyrotoxic crisis or storm 1998 Hyperthyroidism/had radioactive iodine - Unspecified hypothyroidism Current Outpatient Prescriptions: promethazine (PHENERGAN) 25 mg tablet Take 0.5-1 tablets by mouth every 6 hours as needed. LORazepam (ATIVAN) 0.5 mg tab Take 1 tablet by mouth at bedtime as needed. levothyroxine (SYNTHROID) 75 mcg tablet Take 1 tablet by mouth daily before breakfast. Except hold weekly Monday doses hydroCHLOROthiazide (HYDRODIURIL, ESIDRIX) 50 mg tablet Take 0.5-1 tablets by mouth once daily. traMADol (ULTRAM) 50 mg tablet Take 1 tablet by mouth twice daily as needed for Pain. (Dr. Gaffney) meloxicam (MOBIC) 15 mg tablet Take 1 tablet by mouth once daily as needed. (Dr. Gaffney) omeprazole (PRILOSEC) 20 mg capsule Take 1 capsule by mouth once daily. (Dr. Gaffney) Magnesium 250 mg tab Take 250 mg by mouth once daily. hydrocortisone 2.5 % cream Apply 1 application to affected area three times daily as needed. For rash on hand and extremities until rash resolves CALCIUM CARBONATE/VITAMIN D3 (VITAMIN D-3 ORAL) Take by mouth. gabapentin (NEURONTIN) 300 mg capsule Take 1 capsule by mouth daily at bedtime. (Dr. Gaffney) FA/MV,CA,IRON,MIN/LYCOPENE/LUT (MULTIVITAL ORAL) Take by mouth. Cholecalciferol, Vitamin D3, (VITAMIN D) 1,000 unit cap Take 1,000 Units by mouth once daily. albuterol HFA 90 mcg/actuation inhaler Inhale 2 Puffs as instructed every 6 hours as needed for Wheezing/Shortness of Breath. No current facility-administered medications for this visit. OBJECTIVE: BP 140/82 Pulse 82 Resp 14 Wt 79.4 kg (175 lb) BMI 33.07 kg/m2 Patient is alert, oriented times 3, no apparent distress, affect is bright, reactive. Last 5 Encounter BP Readings: Date: BP: 06/26/2017 140/82 02/13/2017 153/86 12/21/2016 140/82 06/20/2016 128/78 03/25/2016 130/80 Last 5 Encounter Wt Readings: Date: Wt: 06/26/2017 79.4 kg (175 lb) 02/13/2017 81 kg (178 lb 8 oz) 12/21/2016 83 kg (183 lb) 06/20/2016 81.6 kg (180 lb) 03/25/2016 80.7 kg (178 lb) Heart: Regular rate, rhythm, no murmurs, gallops, rubs. Lungs: Clear to auscultation, bilaterally, breathing non labored. Ext: No cyanosis, clubbing, or edema. Component Latest Ref Rng ANDamp; Units 06/06/2016 12/13/2016 06/19/2017 Glucose 74 - 99 mg/dL 111 (H) 115 (H) BUN 7 - 21 mg/dL 16 16 Creatinine 0.58 - 0.96 mg/dL 0.88 0.86 Sodium 136 - 144 mmol/L 142 141 Potassium 3.7 - 5.1 mmol/L 4.2 4.2 Chloride 97 - 105 mmol/L 103 103 CO2 22 - 30 mmol/L 26 25 Anion Gap 9 - 18 mmol/L 13 13 Calcium 8.5 - 10.2 mg/dL 9.4 9.5 eGFR- ANDgt;60 ANDgt;60 eGFR-All Other Races . ANDgt;60 ANDgt;60 WBC 3.70 - 11.00 k/uL 6.92 RBC 3.90 - 5.20 m/uL 4.73 Hemoglobin 11.5 - 15.5 g/dL 14.6 Hematocrit 36.0 - 46.0 % 44.2 MCV 80.0 - 100.0 fL 93.4 MCH 26.0 - 34.0 pG 30.9 MCHC 30.5 - 36.0 g/dL 33.0 RDW-CV 11.5 - 15.0 % 12.5 Platelet Count 150 - 400 k/uL 278 MPV 9.0 - 12.7 fL 10.5 Absolute nRBC ANDlt;0.01 k/uL ANDlt;0.01 Triglyceride ANDlt;150 mg/dL 100 123 Cholesterol, Total ANDlt;200 mg/dL 243 (H) 229 (H) HDL Cholesterol ANDgt;39 mg/dL 75 65 VLDL Cholesterol ANDlt;30 mg/dL 20 25 LDL Cholesterol ANDlt;100 mg/dL 148 (H) 139 (H) Fasting Time hrs 10 5 TC:HDL Ratio ANDlt;5.10 3.24 3.52 LDL:HDL Ratio ANDlt;2.54 1.97 2.14 Non HDL Cholesterol ANDlt;130 mg/dL 168 (H) 164 (H) Hemoglobin A1C 4.3 - 5.6 % 6.0 (H) 6.0 (H) Estimated Average Glucose mg/dL 126 126 TSH 0.400 - 5.500 uU/mL 0.944 0.206 (L) 1.220 Vitamin D 25 Hydroxy 31.0 - 80.0 ng/mL 23.4 (L) 26.4 (L) 25.7 (L) Free T4 0.9 - 1.7 ng/dL 1.2 Magnesium 1.7 - 2.3 mg/dL 1.7 ASSESSMENT AND PLAN: Encounter Diagnosis ICD-10-CM 1. Acquired hypothyroidism E03.9 2. Hyperlipemia, mixed E78.2 3. Vitamin D deficiency E55.9 VITAMIN D 25 HYDROXY 4. Gastroesophageal reflux disease without esophagitis K21.9 5. Class 1 obesity due to excess calories without serious comorbidity with body mass index (BMI) of 33.0 to 33.9 in adult E66.09 Z68.33 6. Visit for screening mammogram Z12.31 CAROLYN SCREENING 7. IFG (impaired fasting glucose) R73.01 HGB A1C COMP METABOLIC PANEL 8. Encounter for long-term current use of medication Z79.899 COMP METABOLIC PANEL MAGNESIUM BLD VITAMIN D 25 HYDROXY Above issues addressed with patient. Patient involved in shared decision making for management of her medical issues. History and medications reviewed. Epic updated as needed Refills taken care of and meds adjusted as indicated after reviewed history, exam and labs. Health Maintenance reviewed. Updated record and/or ordered tests as recorded. Encouraged on efforts at healthy diet and regular exercise and adequate sleep. Needs to keep working on diet and exercise with lifestyle changes for effective weight loss and DM prevention. The majority of the visit was spent counseling and/or coordinating care for the patient. [id number] time was at least 25 minutes. Fiorella Brown MD Referring Provider: FIORELLA BROWN [[id number]] Allergies As of Date: 06/26/2017 Noted Allergy Reaction AXID (NIZATIDINE) 03/30/2005 4 - Hives CYMBALTA (DULOXETINE) 08/19/2009 Comments: Insomnia MERIDIA (SIBUTRAMINE) 03/30/2005 2 - Rash SULFABENZAMIDE 03/30/2005 Comments: red mouth Date Reviewed: 06/26/2017 Reviewed by: Rosa Chambers [employer] - Fully Assessed Reason for Visit: Recheck [92] Radiology Mammogram [1485] Cmt: at [facility] Reason For Visit History Recorded Primary Visit Diagnosis:Acquired hypothyroidism [E03.9] Other Visit Diagnoses:Hyperlipemia, mixed [E78.2] Vitamin D deficiency [E55.9] Gastroesophageal reflux disease without esophagitis [K21.9] Class 1 obesity due to excess calories without serious comorbidity with body mass index (BMI) of 33.0 to 33.9 in adult [E66.09, Z68.33] Visit for screening mammogram [Z12.31] IFG (impaired fasting glucose) [R73.01] Encounter for long-term current use of medication [Z79.899] Order(s):HGB A1C [RVFNY9T] Order #: [id number] FUTURE COMP METABOLIC PANEL [SQCMP] Order #: [id number] FUTURE MAGNESIUM BLD [SQMG1] Order #: [id number] FUTURE VITAMIN D 25 HYDROXY [SQVITD] Order #: [id number] FUTURE CAROLYN SCREENING W KIKE [[id number]] Order #: [id number] FUTURE Prescriptions as of 06/26/2017 Sig: PROMETHAZINE 25 MG TABLET Take 0.5-1 tablets by mouth e* LORAZEPAM 0.5 MG TABLET Take 1 tablet by mouth at bed* LEVOTHYROXINE 75 MCG TABLET Take 1 tablet by mouth daily * HYDROCHLOROTHIAZIDE 50 MG TAB* Take 0.5-1 tablets by mouth o* TRAMADOL 50 MG TABLET Take 1 tablet by mouth twice * MELOXICAM 15 MG TABLET Take 1 tablet by mouth once d* OMEPRAZOLE 20 MG CAPSULE,MG* Take 1 capsule by mouth once * MAGNESIUM 250 MG TABLET Take 250 mg by mouth once ysabel* HYDROCORTISONE 2.5 % TOPICAL * Apply 1 application to affect* VITAMIN D-3 ORAL Take by mouth. GABAPENTIN 300 MG CAPSULE Take 1 capsule by mouth daily* MULTIVITAL ORAL Take by mouth. CHOLECALCIFEROL (VITAMIN D3) * Take 1,000 Units by mouth onc* ALBUTEROL SULFATE HFA 90 MCG/* Inhale 2 Puffs as instructed * Medication notes this encounter HYDROCHLOROTHIAZIDE 50 MG TABLET >> Fiorella Brown MD 06/26/2017 9:24 AM >> FIORELLA BROWN MD MonJun 26, 2017 9:24 AM Still has a lot since takes just half pill TRAMADOL 50 MG TABLET >> Fiorella Brown MD 06/26/2017 9:15 AM >> FIORELLA BROWN MD MonJun 26, 2017 9:15 AM Not taking since did not think was helping. Problem List As Of Date 06/26/2017 Noted Resolved GENERAL OSTEOARTHROSIS [M15.9] More... BONE AND CARTILAGE DIS NOS [M89.9, M94.9] INVALID FOR* DIFFUS CYSTIC MASTOPATHY [N60.19] IRRITABLE COLON [K58.9] OBESITY NOS [E66.9] DEPRESSIVE DISORDER NEC [F32.9] More... 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 Other and unspecified noninfectious gastroenter*INVALID FOR* Disposition: Return in about 6 months (around 12/24/2017) for Yearly exam and follow up (40 min), With labs prior. Follow-up and Disposition History Recorded Encounter Status:Closed by FIORELLA BROWN MD on 07/14/17 CBC Collected: 06/19/2017 Status: F Source: [place] 10:10 AM [facility] REPOSITORY TYPE CODE TESTS RESULT OUT OF REFERENCE UNITS RANGE LAB WBC 3.70-11.00 k/uL WBC 6.92 LAB RBC 3.90-5.20 m/uL RBC 4.73 LAB HGB 11.5-15.5 g/dL Hemoglobin 14.6 LAB HCT 36.0-46.0 % Hematocrit 44.2 LAB MCV 80.0-100.0 fL MCV 93.4 LAB MCH 26.0-34.0 pG MCH 30.9 LAB MCHC 30.5-36.0 g/dL MCHC 33.0 LAB RDWCV 11.5-15.0 % RDW-CV 12.5 LAB PLTCT 150-400 k/uL Platelet Count 278 LAB MPV 9.0-12.7 fL MPV 10.5 LAB ABSNUC <0.01 k/uL Absolute nRBC <0.01 Performed By: #### CBC, HBA1C, FT4, LIPB, MG1, TSH, VITD #### [facility] [address] [place], [place] [address] HEMOGLOBIN A1C Collected: 06/19/2017 Status: F Source: [place] 10:10 [facility] REPOSITORY TYPE CODE TESTS RESULT OUT OF REFERENCE UNITS RANGE LAB HGBA1C 4.3-5.6 % High Hemoglobin A1c 6.0 LAB HBA0 mg/dL Est. Average Glucose 126 Result Comment: eAG: (Estimated average glucose) is a calculated value from HgbA1c and is commissary representative of the average blood glucose level in the last 2-3 month period. Performed By: #### CBC, HBA1C, FT4, LIPB, MG1, TSH, VITD #### [facility] [address] [place], [place] [address] FREE T4 Collected: 06/19/2017 Status: F Source: [place] 10:10 AM [facility] REPOSITORY TYPE CODE TESTS RESULT OUT OF RANGE REFERENCE UNITS LAB FT4 0.9-1.7 ng/dL Free T4 1.2 Performed By: #### CBC, HBA1C, FT4, LIPB, MG1, TSH, VITD #### [facility] [address] [place], [place] [address] LIPID PANEL, BASIC Collected: 06/19/2017 Status: F Source: [place] 10:10 AM [facility] REPOSITORY TYPE CODE TESTS RESULT OUT OF REFERENCE UNITS RANGE LAB CHOL <200 mg/dL Cholesterol High 229 Result Comment: <200 mg/dL, Desirable 200-239 mg/dL, Borderline high >239 mg/dL, High LAB TRIGLY <150 mg/dL Triglyceride 123 Result Comment: <150 mg/dL, Normal 150-199 mg/dL, Borderline high 200-499 mg/dL, High >499 mg/dL, Very high LAB HDL >39 mg/dL HDL-Cholesterol 65 Result Comment: 40-59 mg/dL, Acceptable >59 mg/dL, High: Negative risk factor for coronary heart disease <40 mg/dL, Low: Positive risk factor for coronary heart disease LAB LDL <100 mg/dL LDL-Cholesterol High 139 Result Comment: <100 mg/dL, Optimal 100-129 mg/dL, Near optimal/above optimal 130-159 mg/dL, Borderline high 160-189 mg/dL, High >189 mg/dL, Very high Secondary prevention optimal LDL Cholesterol levels are recommended to be < 70 mg/dL LAB NONHDL <130 mg/dL Non HDL High Cholesterol 164 Result Comment: <130 mg/dL, Optimal 130-159 mg/dL, Near optimal/above optimal 160-189 mg/dL, Borderline high 190-219 mg/dL, High >219 mg/dL, Very high Secondary prevention optimal non HDL Cholesterol levels are recommended to be < 100 mg/dL LAB FT hrs Fasting Time 5 LAB VLDL <30 mg/dL VLDL Cholesterol 25 LAB TCHDL <5.10 TC:HDL Ratio 3.52 LAB LDLHDL <2.54 LDL:HDL Ratio 2.14 Result Comment: Reference: 1. National Cholesterol Education Program ATP III Guideline At-A-Glance Quick Desk Reference: National Heart, Lung, and Blood [place]. National Institutes of Health. 2001: NIH Publication No. 01-3305. 2. An International Atherosclerosis Society position paper: global recommendations for the management of dyslipidemia: executive summary, Atherosclerosis. 2014: 232(2):410-413. Performed By: #### CBC, HBA1C, FT4, LIPB, MG1, TSH, VITD #### [place] [id number] [place] [id number] MAGNESIUM Collected: 06/19/2017 Status: F Source: [place] 10:10 AM [facility] REPOSITORY TYPE CODE TESTS RESULT OUT OF REFERENCE UNITS RANGE LAB MG 1.7-2.3 mg/dL Magnesium 1.7 Performed By: #### CBC, HBA1C, FT4, LIPB, MG1, TSH, VITD #### [place] [address] TSH Collected: 06/19/2017 Status: F Source: [place] 10:10 AM [facility] REPOSITORY TYPE CODE TESTS RESULT OUT OF RANGE REFERENCE UNITS LAB TSH 0.400-5.500 uU/mL TSH 1.220 Performed By: #### CBC, HBA1C, FT4, LIPB, MG1, TSH, VITD #### [place] [address] VITAMIN D 25 HYDROXY Collected: 06/19/2017 Status: F Source: [place] 10:10 AM [facility] REPOSITORY TYPE CODE TESTS RESULT OUT OF REFERENCE UNITS RANGE LAB VITD 31.0-80.0 ng/mL Low Vitamin D 25 25.7 Hydroxy Result Comment: Classification of 25 [place] Vitamin D status: Insufficiency/Moderate Deficiency: < or = 30 ng/mL Sufficiency/Optimal Levels: 31 to 80 ng/mL Toxicity: > 100 ng/mL Test performed by chemiluminescent immunoassay. Performed By: #### CBC, HBA1C, FT4, LIPB, MG1, TSH, VITD #### [place] [id number] ALLERGIES ALLERGIES DATE TYPE / NAME / CODE REACTION SEVERITY SOURCE CODE 04/25/2018 Drug Sulfa (Sulfonamide Rash Unknown [place] Allergy/41 Antibiotics)/[id number] [facility] [id number][facility](RXNORM) [facility]) Repository 04/25/2018 Drug nizatidine/[id number] Hives Unknown [place] Allergy/41 8(RXNORM) [facility] [id number]([facility]) Repository 08/19/2009 DRUG DULOXETINE [address] [id number](SN Repository [facility]) 03/30/2005 DRUG NIZATIDINE HIVES [address] [id number](SN Repository [facility]) 03/30/2005 DRUG SIBUTRAMINE RASH [address] [id number](SN Repository [facility]) 03/30/2005 DRUG SULFABENZAMIDE [address] [id number](SN Repository [facility]) ENCOUNTERS ENCOUNTERS ADMIT/DISCHARGE ACCOUNT ADMITTING ENCOUNTER LOCATION SOURCE NUMBER CLASS 05/29/2018/05/30/19 [id number] Ambulatory [address] Main [place] Repository 05/04/2018/05/06/20 [id number] Ambulatory [address] Repository 04/27/2018/04/27/20 [id number] Ambulatory [address] Repository 04/26/2018/04/27/20 [id number] Ambulatory [address] Repository 04/25/2018/04/25/20 [id number] Emergency [address] ing:ED Repository 12/25/2017/12/27/19 [id number] Ambulatory [address] Repository 12/05/2017/12/06/19 [id number] Ambulatory [address] Repository 07/24/2017 [id number] General acute hospital ing:BI Repository 06/26/2017/07/18/19 [id number] Ambulatory [address] Repository PAYERS PAYERS ENCOUNTER GUARANTOR PAYER SUBSCRIBER SOURCE 04/25/2018 JYOTI Adamson Primary AMINA Bishop [id number] Insurance:ELKE RAMON: [facility] MEDICARE [facility] [id number] ADV[place]ol[place] Number: Repository [id number]: 330 [id number] [phone] () Date:[id number] [address]JV: 04/25/2018 Secondary NOT GIVENUNK Dario Insurance:SELF PAY [facility] Number: Effective Repository Date:2018-04-25 07/24/2017 Jyoti Adamson Primary AMINA [id number] Insurance:ELKE RAMON: [facility] [id number] [facility] [id number]: [id number] [phone] Date:[id number] () [id number], [place] [address]VV: 07/24/2017 Secondary NOT GIVENMIKIE Bishop Insurance:SELF PAY [facility] Number: Effective Repository Date:2017-06-27
== END 2018-04-25 13:35 | disposition home or self-care (01) ==
LOC: ED 11:51
PROVIDERS: Emergency Provider Emergency Medicine; Family Provider Internal Medicine; PCP Internal Medicine
DX: R00.2 Palpitations (principal); Z79.899 Other long term (current) drug therapy
CPT/HCPCS: 71045; 80048; 83880; 84436; 84443; 84484; 85025; 93005; 96360; 99285; J7030; A4216

== ENCOUNTER → 2018-08-07 07:05 | Outpatient (CLI) | payer MEDICARE, SELFPAY ==
--- NOTE | 2018-08-07 07:10 | BI_ITS ---
MAMMOGRAPHY - BILATERAL SCREENING REASON FOR EXAM: Female, 67 years old. Routine annual screening examination. PERTINENT HISTORY: Non-contributory. Occasional left breast soreness. TECHNIQUE: Digital bilateral breast cesar (3D mammographic acquisition) in the CC and MLO projections. 2-D mediolateral oblique (MLO) and craniocaudad (CC) views of both breasts were obtained. CAD: Full Field Digital Mammography with Computer Added Detection was performed. COMPARISON: Comparison is made with prior study dated July 24, 2017 and July 20, 2016. FINDINGS: Breast Composition: There are scattered areas of fibroglandular density. There are no dominant masses or suspicious calcifications. Stable small bilateral axillary lymph nodes. Stable 5 mm well-defined nodule in the upper outer aspect of the left breast. No other significant abnormalities are identified. There has been no significant change since the prior study. BI/SCREENING MAMM (CAD), BILAT IMPRESSION: Stable bilateral screening mammogram. Yearly follow-up mammogram recommended. (A) ASSESSMENT CATEGORY: BIRADS Category 2: Benign. A letter regarding these results will be sent to the patient by the facility within 30 days. Approximately 10% of breast cancers are not detected by mammography. A normal mammogram should not delay biopsy of a clinically suspicious abnormality. [id number] Electronically Signed: Victoriano Cordoba, at 9:40 EDT , Service support ,
== END ==
PROVIDERS: Family Provider Internal Medicine; PCP Internal Medicine; Referring Provider Internal Medicine; Visit Provider Internal Medicine
DX: Z12.31 Encounter for screening mammogram for malignant neoplasm of breast (principal)
CPT/HCPCS: 77063; 77067

== ENCOUNTER → 2018-11-27 09:40 | Outpatient (CLI) | payer MEDICARE, SELFPAY ==
--- NOTE | 2018-11-27 09:50 | BD_ITS ---
STUDY: DUAL ENERGY X-RAY ABSORPTIOMETRY / DXA REASON FOR EXAM: Female, 67 years old. The patient is postmenopausal. Loss of height. TECHNIQUE: Bone Mineral Density (BMD) measurements of lumbar spine and bilateral hips were obtained. COMPARISON: Comparison is made with prior study dated July 14, 2015. FINDINGS: Lumbar Spine (L1-L4): g/cm2 (1.002) / T-score (-1.4) / Z-score (0.3) Findings are suggestive of osteopenia with a low fracture risk. Left Femur Total: g/cm2 (0.788) / T-score (-1.7) / Z-score (-0.3) Left Femoral Neck: g/cm2 (0.707) / T-score (-2.4) / Z-score (-0.7) Right Femur Total: g/cm2 (0.764) / T-score (-1.9) / Z-score (-0.5) Right Femoral Neck: g/cm2 (0.695) / T-score (-2.5) / Z-score (-0.8) The T-Scores on the most recent prior examination were: Lumbar Spine (L1-L4): There has been improvement of bone density since the previous examination. Left Femur Total: which represents a worsening of 0.8%. Right Femur Total: which represents an improvement of 1.5%. BD/Dexa Bone Density Study IMPRESSION: The patient is considered osteopenic as outlined below according to World Clive Organization (WHO) criteria with a high fracture risk. There has been improvement of bone density since the previous examination. Reference Information: The T-score is the number of standard deviations above or below the standard which is normal for young adults at their peak bone mineral density. The World Health Organization (WHO) interprets the T-scores as follows: Above -1 Normal bone density Between -1 and -2.5 Osteopenia Equal to / or below -2.5 Osteoporosis As a practical clinical guideline, osteopenia may be graded as follows: Mild -1 through -1.5 Moderate -1.6 through -2.0 Severe -2.1 through -2.4 The Z-score is the number of standard deviations above or below age-matched controls. A Z-score of less than -1.5 would be considered abnormal. References: 1. NIH Osteoporosis and Related Bone Diseases http://www.osteo.org 2. International Society for Clinical Densitometry http://www.iscd.org 3. National Osteoporosis Foundation http://www.nof.org Electronically Signed: Victoriano Cordoba, at 15:34 EDT , Service support ,
== END ==
PROVIDERS: Family Provider Internal Medicine; PCP Internal Medicine; Referring Provider Internal Medicine; Visit Provider Internal Medicine
DX: Z78.0 Asymptomatic menopausal state (principal); M81.0 Age-related osteoporosis without current pathological fracture
CPT/HCPCS: 77080

== ENCOUNTER → 2019-10-08 07:30 | Outpatient (CLI) | payer MEDICARE, SELFPAY ==
--- NOTE | 2019-10-08 07:46 | BI_ITS ---
MAMMOGRAPHY - BILATERAL SCREENING REASON FOR EXAM: Female, 68 years old. Routine annual screening examination. PERTINENT HISTORY: Non-contributory. TECHNIQUE: Digital bilateral breast kike (3D mammographic acquisition) in the CC and MLO projections. 2-D mediolateral oblique (MLO) and craniocaudad (CC) views of both breasts were obtained. CAD: Full Field Digital Mammography with Computer Added Detection was performed. COMPARISON: Comparison is made with prior study dated August 07, 2018 and July 24, 2017. FINDINGS: Breast Composition: There are scattered areas of fibroglandular density. There are no dominant masses or suspicious calcifications. Stable 5 mm well-defined nodule in the upper-outer aspect of the left breast this most likely represents a small lymph node. No other significant abnormalities are identified. There has been no significant change since the prior study. BI/SCREEN MAMM (CAD) W/KIKE BILAT IMPRESSION: Stable bilateral screening mammogram. Yearly follow-up mammogram recommended. (A) ASSESSMENT CATEGORY: BIRADS Category 2: Benign. A letter regarding these results will be sent to the patient by the facility within 30 days. Approximately 10% of breast cancers are not detected by mammography. A normal mammogram should not delay biopsy of a clinically suspicious abnormality. [id number] Electronically Signed: Victoriano Cordoba, at 14:12 EDT , Service support ,
== END ==
PROVIDERS: PCP Internal Medicine; Referring Provider Clinical Nurse Specialist; Visit Provider Clinical Nurse Specialist
DX: Z12.31 Encounter for screening mammogram for malignant neoplasm of breast (principal)
CPT/HCPCS: 77063; 77067

== ENCOUNTER → 2020-07-09 11:43 | Outpatient (CLI) | payer MEDICARE, SELFPAY ==
--- NOTE | 2020-07-09 11:47 | RAD_ITS ---
STUDY: X-RAY - LUMBOSACRAL SPINE REASON FOR EXAM: Female, 69 years old. PAIN LOW BACK TECHNIQUE: 6 view(s) of the lumbosacral spine were obtained. COMPARISON: None FINDINGS: There is approximately 15 degrees of gradual, leftward degenerative thoracolumbar scoliosis measured from the superior endplate of T12 to the inferior endplate of L3. There is a mild associated rotatory component. There is mild grade 1 degenerative listhesis at L5-S1. There is moderate grade 1 degenerative listhesis at L4-L5 and L1-L2. The listhesis and alignment appear stable on flexion and extension versus neutral. There is moderate multilevel spondylosis. There is moderate to severe L1-L2 and L5-S1 degenerative disc disease. No lysis is identified on submitted bilateral oblique views. Normal visualized soft tissue structures. RAD/L/S Spine Bending Flex/Ext IMPRESSION: Degenerative thoracolumbar scoliosis. Multiple levels of grade 1 degenerative listhesis as above. There is stable listhesis and alignment on flexion and extension versus neutral. Spondylosis and degenerative disc disease as above. Electronically Signed: Michael Paula MD at 9:31 EST , Service support ,
== END ==
PROVIDERS: PCP Internal Medicine; Visit Provider Anesthesiology Pain Medicine
DX: M51.37 Other intervertebral disc degeneration, lumbosacral region (principal)
CPT/HCPCS: 72120

== ENCOUNTER → 2020-08-11 15:12 | Outpatient (CLI) | payer MEDICARE, SELFPAY ==
--- NOTE | 2020-08-11 16:00 | MRI_ITS ---
STUDY: MRI LUMBAR SPINE WITHOUT CONTRAST REASON FOR EXAM: Female, 69 years old. LOSS OF BOWELS TECHNIQUE: Standardized fat and water weighted pulse sequences were obtained in the sagittal and axial planes. COMPARISON: Lumbar spine x-rays 07/09/2020 FINDINGS: T12-L1: Normal endplates. Normal disc height, desiccation and normal. Morphology. Normal bilateral facet joints. Normal central canal and bilateral lateral recesses. Normal bilateral intervertebral neural foramina. Normal lumbar lordosis. There is mild to moderate dextro scoliosis. Normal conus medullaris that terminates at T12-L1 L1-2: Grade 1 retrolisthesis. Degenerative endplate changes. Narrowed disc space with desiccation of the disc and mild bulging disc osteophyte complex with small right posterolateral disc protrusion. Mild right facet arthropathy.. Normal central canal. Mild left lateral recess and neuroforaminal encroachment with moderate stenosis on the right L2-3: Narrowed disc space with degenerative endplate changes. Desiccation of the disc with minor bulge and small left posterolateral/foraminal disc protrusion. Facet arthropathy and thickening of ligamenta flava slightly more pronounced on the left mild narrowing the central canal. Mild right lateral recess and neuroforaminal stenosis with more severe narrowing on the left. L3-4: Narrowed disc space with degenerative endplate changes. Desiccation of the disc with mild bulging of the annulus and left posterolateral/foraminal disc extrusion with inferior migration of disc fragment. Bilateral facet arthropathy and thickening of ligamenta flava. Moderate to severe central canal stenosis right lateral recess and neuroforaminal stenosis. More severe narrowing on the left lateral recess and subarticular stenosis and neuroforaminal stenosis. L4-5: Grade 1 spondylolisthesis. Normal disc height with desiccation of disc and minor bulging disc osteophyte complex. Facet arthropathy and thickening of ligamenta flava greater on the right. Severe narrowing of the central canal. Moderate left lateral recess and neuroforaminal stenosis greater on the right exaggerated by shortened pedicles.. L5-S1: Degenerative endplate changes.. Normal disc height, desiccation mild annular bulge. Facet arthropathy.. Mild narrowing of the central canal.. Severe bilateral recess and neuroforaminal stenosis exaggerated by shortened pedicles. Normal visualized sacral ala. Normal visualized paraspinous soft tissue structures. Findings similar to that seen on prior study given differences in imaging modalities MRI/Spine Lumbar (Routine) IMPRESSION: No evidence for acute fracture or other significant bony pathology.. Scoliosis and advanced spondylosis. Multilevel spinal stenosis secondary to disc disease and facet arthropathy exaggerated by shortened pedicles at L4-5 and L5-S1 Findings as above. Electronically Signed: Guy Lorenzo MD at 17:57 EDT , Service support ,
== END ==
PROVIDERS: PCP Internal Medicine; Referring Provider Anesthesiology Pain Medicine; Visit Provider Anesthesiology Pain Medicine
DX: M51.37 Other intervertebral disc degeneration, lumbosacral region (principal); M54.17 Radiculopathy, lumbosacral region; M47.816 Spondylosis without myelopathy or radiculopathy, lumbar region; M48.061 Spinal stenosis, lumbar region without neurogenic claudication
CPT/HCPCS: 72148

== ENCOUNTER 2020-09-10 13:42 | Observation (INO) | payer MEDICARE, SELFPAY ==
[2020-08-17 12:57] VITALS: BMI 28.5
--- NOTE | 2020-08-31 15:43 | NURSING ---
pt states she has received the second Pfizer vaccine on 08/07/20
--- NOTE | 2020-09-02 12:19 | EKG12_ITS ---
Test Reason : PRE OP Blood Pressure : / mmHG Vent. Rate : 082 BPM Atrial Rate : 083 BPM P-R Int : 154 ms QRS Dur : 082 ms QT Int : 376 ms P-R-T Axes : 077 059 075 degrees QTc Int : 439 ms Normal sinus rhythm Septal infarct , age undetermined Abnormal ECG Confirmed by PRACHI CARDONA, SKIP ([id number]), editor in chief THALIA STEINER ([id number]) on 09/03/2020 9:29:41 AM Referred By: Boogie Mclean Confirmed By:SKIP VELARDE MD
[2020-09-02 13:20] LABS: Absolute Lymphocyte Count 2.54 X10^3/uL (0.83-4.51); Absolute Neutrophil Count 3.8 X10^3/uL (2.0-7.7); Basophil# 0.05 X10^3/uL; Basophil% 0.7 % (0-1); Eosinophil# 0.09 X10^3/uL; Eosinophils% 1.3 % (0-5); Hematocrit 42.2 % (37-47); Hemoglobin 13.8 g/dL (12.0-15.0); Lymphocyte # 2.54 X10^3/ul (0.83-4.51); Mean Corp Hgb Conc 32.7 g/dL (32-36); Mean Corpuscular Hgb 30.9 pg (27.0-32.0); Mean Corpuscular Volume 94.6 fL (81-99); Mean Platelet Vol. 10.1 fl (6.2-12.0); Monocyte# 0.59 X10^3/uL; Monocyte% 8.4 % (0-10); NRBC Flagged by Analyzer 0 % (0-5); Neutrophil # 3.75 X10^3/uL (2.7-7.7); Neutrophil % 53.2 % (47-70); Platelet Count 273 K/mm3 (150-450); RBC Distribution Width CV 12.3 % (11.6-14.6); Red Blood Count 4.46 M/mm3 (4.2-5.4); White Blood Count 7.1 K/mm3 (4.4-11.0)
[2020-09-02 13:45] LABS: Anion Gap 4 (5-15); BUN 11 mg/dL (7-18); BUN/Creat Ratio 12.4 RATIO (10-20); Calcium,Total 8.9 mg/dL (8.5-10.1); Chloride 102 mmol/L (98-107); Creatinine, Serum 0.89 mg/dL (0.55-1.02); EST Glomerular Filtration Rate 67 mL/min (>60); Est Glom Filt Rate - Afr Amer 81 mL/min (>60); Glucose 122 mg/dL (74-106); Potassium 3.6 mmol/L (3.5-5.1); Sodium Level 136 mmol/L (136-145)
[2020-09-02 13:58] LABS: Magnesium 1.7 mg/dL (1.6-2.6); Thyroid Stim Hormone (TSH) 1.75 uIU/mL (0.358-3.74)
[2020-09-02 14:16] LABS: HIV - WCH Non-Reactive (Nonreactive)
[2020-09-03 11:11] LABS: HEPATITIS B SURFACE AG Negative (Negative); Hepatitis A AB, Total Positive (Negative); Hepatitis A IgM Antibody Negative (Negative); Hepatitis B Core AB IgM Negative (Negative); Hepatitis B Core Ab Total Negative (Negative); Hepatitis C Ab <0.1 s/co ratio (0.0-0.9)
[2020-09-03 16:54] LABS: Hep B Surface Antibodies Non Reactive (.)
[2020-09-10] VITALS (12 sets, daily range): BP systolic 119–154; BP diastolic 59–90; PULSE 58–79; RESP 12–18; TEMP 35.6–37; O2SAT 95–100; BMI 29.2
--- NOTE | 2020-09-10 06:00 | HP_ITS ---
Intake Intake Visit Reasons: lumbar pain Accompanied by: Self Allergies nizatidine [From Axid] Allergy (Verified 09/02/20 09:04) Hives Sulfa (Sulfonamide Antibiotics) Allergy (Verified 09/02/20 09:04) Rash, oral redness Medications Cholecalciferol (Vitamin D3) [Vitamin D] 3,000 unit PO DAILY 12/29/13 [History Confirmed 09/02/20] Gabapentin 1,000 mg PO QHS 12/29/13 [History Confirmed 09/02/20] Levothyroxine [Synthroid] 75 mcg PO SUMOTUWEFRSA 12/29/13 [History Confirmed 09/02/20] Omeprazole [Prilosec] 40 mg PO DAILY 12/29/13 [History Confirmed 09/02/20] Meloxicam [Mobic] 15 mg PO DAILY PRN PRN 04/25/18 [History Confirmed 09/02/20] bupropion HCl 300 mg 24 hr tablet, extended release 300 mg PO DAILY 08/17/20 [History Confirmed 09/02/20] tramadol 50 mg tablet 50 mg PO DAILY PRN PRN 08/17/20 [History Confirmed 09/02/20] trazodone 100 mg tablet 100 mg PO QHS tablet 08/17/20 [History Confirmed 09/02/20] Acetaminophen 325 mg PO Q6H PRN PRN 08/31/20 [History Confirmed 09/02/20] Biotin 10,000 mcg PO DAILY 08/31/20 [History Confirmed 09/02/20] Cyanocobalamin [Vitamin B12] 500 mcg PO DAILY@0800 08/31/20 [History Confirmed 09/02/20] Cyclobenzaprine HCl 10 mg PO DAILY PRN PRN 08/31/20 [History Confirmed 09/02/20] Hydrochlorothiazide [Hctz] 50 mg PO DAILY 08/31/20 [History Confirmed 09/02/20] Levothyroxine [Synthroid] 37.5 mcg PO TH 08/31/20 [History Confirmed 09/02/20] PFSH Medical History (Updated 08/17/20 @ 13:08 by Lisa Mata) H/O radioactive iodine thyroid ablation (Acute) Hyperthyroidism (Acute) HTN (hypertension) (Chronic) Surgical History (Updated 08/17/20 @ 13:09 by Lisa Mata) H/O dilation and curettage (Acute) Family History (Updated 08/17/20 @ 13:10 by Lisa Mata) Mother Arthritis Father Diabetes Heart disease Sister Brain bleed Social History (Updated 09/02/20 @ 09:[address] Boogie Mclean DO) household members: spouse housing: house Smoking Status: Former smoker alcohol intake: current alcohol intake frequency: a few times a week what type of physical activity do you participate in: walking, bicycling, other details: Cory do you feel safe at home: Yes HPI lumbar pain: Details: Parts of this documentation were recorded by a scribe, this documentation accurately reflects the service provided and the decisions made by me, Dr. Boogie Mclean DO 09/02/20 0829. AMINA ROBERT is a 69 year old F here today for her pre-op appt, needs to sign consent, DOS: 09/10/2020. Patient denies any medical changes at this time. Patient has already been provided everything she needs for surgery. Amina returns for follow-up. She is here for her preop about a week or so prior to her surgery she is scheduled for. She is having a decompression at L3- 4 and L4-5 for marked stenosis. I reviewed her MRI scan. Discussed the surgery at length what to expect possible risks and complications among those possibility of , paralysis infection meningitis failed to relieve the symptoms blood clot in the legs blood clot in the lungs microinfarction stroke dural leak among others. I answered all her questions and she voluntarily signed the operative permit. Assessment & Plan Problems 1. Spinal stenosis, lumbar region with neurogenic claudication M48.062 Coding Level of Care Code Off vis,est,level 2 Diagnoses Spinal stenosis, lumbar region with neurogenic claudication M48.062 Time Spent (min) 20
[2020-09-10] MEDS: Acetaminophen 500 MG Tablet 1000 MG PO (06:21)
[2020-09-10] MEDS: Lactated Ringers 1,000 ML 100 ML IV ×4 (06:23→19:54)
[2020-09-10 06:30] LABS: Bedside Glucose 84 mg/dL (70-110)
--- NOTE | 2020-09-10 07:30 | RAD_ITS ---
STUDY: X-RAY - LUMBAR SPINE REASON FOR EXAM: Female, 69 years old. ERAS,LUMBAR DECOMPRESSION LAMINECTOMY L 4-5 AND l 3-4 TECHNIQUE: 1 view(s) of the lumbar spine were obtained. COMPARISON: None FINDINGS: Single lateral view of the lumbar spine was obtained intraoperatively. The localization instrument is seen overlying the posterior aspect of the L3-L4 disc space level. RAD/Spine 1 View Any Level IMPRESSION: The localization instrument is seen overlying the posterior aspect of the L3-L4 disc space level. Electronically Signed: Victoriano Cordoba MD at 9:20 EDT , Service support ,
[2020-09-10] MEDS: Cefazolin 2 GM in 0.9% Normal Saline 100 ML IV (07:42)
[2020-09-10] MEDS: THROMBIN (RECOMBINANT) 20,000 UNIT VIAL 20000 UNIT TOPICAL (08:33)
[2020-09-10] MEDS: Lactated Ringers 1,000 ML 1000 ML IV (08:45)
--- NOTE | 2020-09-10 11:28 | PCM.OPRPT ---
Report of Operation Date of Procedure: 09/10/20 Description of Procedure: Preoperative diagnosis: Severe spinal stenosis L3-4 and L4-5 Postoperative diagnosis: The same Procedure: #1 complete bilateral decompression L4-5 CPT # 33920 #2 complete bilateral decompression L3-4 CPT #73412/51 Surgeon: Dr. Mclean veterinary assistant: Mariano SCHMIDT Anesthesia: General endotracheal anesthesia administered by [facility] Estimated blood loss: 100 cc Drains: Medium Hemovac Complications: None Procedure description: Patient was taken to the OR where she was placed under general endotracheal anesthesia on the gurunion point neuro monitoring then placed their needle leads in the patient and a Farmer catheter was inserted she was then moved onto the Russell frame in the prone position. After appropriate positioning with care to protect her bony prominences or ulnar nerves of both elbows of brachial plexus bilaterally the facial features her breasts the back was then prepped and draped standard fashion. I then's made a longitudinal incision centered centered over the L3-4 L4-5 area. I opened first the lumbar fascia to the left of the spinous processes elevating the paravertebral muscles using cautery off of the lamina of 3 and the lamina of 4. An intraoperative x-ray was taken with the marker in place the demonstrated that we were indeed at L3-4. We then extended the incision in both cephalad and caudad direction. I then opened the fascia further in both directions elevating the paravertebral muscles off the spinous process of 4 and the lamina for and also all at the 3. Once all these were elevated in and out over the top of both facets thorough irrigation was carried out. This was then packed and the opposite side was opened. We then opened the lumbar fascia to the right of the spinous processes and elevated the paravertebral muscles using the cautery unit off the spinous process of 3 and 4 and the lamina of L3 and the lamina of L4 out over the corresponding facets. Again thorough irrigation was carried out bleeders were controlled with cautery. The super slide retractor was then put in place giving us good access to the spinous process of the top of 5 L4 and L3. I began by removal of the spinous process of L4 using double-action rongeurs also removed a small part of the top of the L5 spinous process. Once this was done I thinned the lamina down using double-action rongeurs. Once I found the centerline I elevated the ligament ligamentum flavum off the underside of the lamina of L4 on both sides using sharp angled small curettes. The laminectomy was then carried out with 45 degree Kerrison rongeurs removing lamina in a cephalad direction and then to either side with a 45 degree Kerrison rongeurs I used both 3 mm and 4 mm rongeurs to do so. I used the ligamentum flavum to protect the dura I once the laminectomy went far enough for me to observe dura I then split the ligamentum flavum in the midline began removal of the ligamentum flavum note that this was the area where the severe stenosis was at this level at 4 5. I then removed the ligament all the way out to the lateral recesses removed at first on 1 side and then remove most of it on the left side which is where I started. Then moved up to the next level using double-action rongeurs I removed the spinous process of L3 and thinned the lamina down with a double-action rongeurs. I then elevated the ligamentum flavum off the underside of the lamina of L3 and perform a laminectomy again using 45 degree Kerrison rongeurs both 3 and 4 mm. Then moved it out laterally open the lateral recesses. Lastly then we again split the ligamentum flavum in the midline and elevated gently off of the dura on both sides there were no adhesions we went ahead and began removal of the ligamentum flavum with a 45 degree Kerrison rongeurs all the way out to the lateral recesses. This left us an isthmus of the L4 lamina between the 2 levels. We then placed cottonoids under this isthmus and removed the remaining bone with a 45 degree Kerrison rongeurs I then went lateralward and again remove the ligamentum flavum all the way out on both sides. I then changed sides moving all the way around to the opposite side that is the patient's right side. Note that throughout the case we thoroughly irrigated with copious amounts of sterile sterile saline repeatedly to prevent infection. I finished the decompression on the left side from the right side which makes it a lot easier using the 45 degree Kerrison rongeurs open the lateral recess completely. The foramina was checked with hockey-stick record checked the exit of the L3 nerves and the exit of the L4 and the L5 nerves bilaterally. Following this we did 1 last washout of the wound. We had good hemostasis by this time. Note that I did observe the small herniation at 3 4 on the left side it was subligamentous and it was left alone as the nerves were completely decompressed anyway. Following this we used the amniotic membrane and placed the membranes directly over the open dura. It took [address] of [address] membrane patches[address] Place Gelfoam over the top of that. A medium Hemovac was then inserted and closure was begun. I closed the lumbar fascia using figure of 8 suture with #1 Vicryl followed by closure of the subcutaneous tissues with 2-0 Vicryl and 0 Vicryl in interrupted fashion. The skin was then approximated using skin clips. Note that I did sew the drain in place to prevent its removal by accident. Sterile dressings were then applied. The patient was then recovered in the OR was moved to her hospital bed and taken to recovery in satisfactory condition. There is the end of operative summary on Amina Tobar this is Dr. Mclean dictating thank you.
--- NOTE | 2020-09-10 11:47 | HP.PCM_ITS ---
HPI - General HPI Narrative DAMIEN ROBERT, is a 69 F who presents [facility] Medical History (Updated 08/17/20 @ 13:08 by Lisa Mata) H/O radioactive iodine thyroid ablation HTN (hypertension) Hyperthyroidism Home Medications cholecalciferol (vitamin D3) 3,000 unit PO DAILY 12/29/13 [History Last Taken Unknown] gabapentin 1,000 mg PO QHS 12/29/13 [History Last Taken Unknown] levothyroxine 75 mcg PO SUMOTUWEFRSA 12/29/13 [History Last Taken Unknown] omeprazole 40 mg PO DAILY 12/29/13 [History Last Taken Unknown] meloxicam 15 mg PO DAILY PRN PRN 04/25/18 [History Last Taken Unknown] bupropion HCl 300 mg 24 hr tablet, extended release 300 mg PO DAILY 08/17/20 [History Last Taken Unknown] tramadol 50 mg tablet 50 mg PO DAILY PRN PRN 08/17/20 [History Last Taken Unknown] trazodone 100 mg tablet 100 mg PO QHS tablet 08/17/20 [History Last Taken Unknown] acetaminophen 325 mg PO Q6H PRN PRN 08/31/20 [History Last Taken Unknown] biotin 10,000 mcg PO DAILY 08/31/20 [History Last Taken Unknown] cyanocobalamin (vitamin B-12) 500 mcg PO DAILY@0800 08/31/20 [History Last Taken Unknown] cyclobenzaprine 10 mg PO DAILY PRN PRN 08/31/20 [History Last Taken Unknown] hydrochlorothiazide 50 mg PO DAILY 08/31/20 [History Last Taken Unknown] levothyroxine 37.5 mcg PO TH 08/31/20 [History Last Taken Unknown] hydrocodone 10 mg-acetaminophen 325 mg tablet 1 tablet PO Q6H PRN #40 tablet 09/02/20 [Rx Last Taken Unknown] Allergy/AdvReac Type Severity Reaction Status Date / Time nizatidine [From Axid] Allergy Hives Verified 09/10/20 06:14 Sulfa (Sulfonamide Allergy Rash, oral Verified 09/10/20 06:14 Antibiotics) redness Family History (Updated 08/17/20 @ 13:10 by Lisa Mata) Mother Arthritis Father Diabetes Heart disease Sister Brain bleed Surgical History (Updated 08/17/20 @ 13:09 by Lisa Adolfo) H/O dilation and curettage Social History (Updated 09/02/20 @ 09:[address] Boogie Mclean, DO) household members: spouse housing: house Smoking Status: Former smoker alcohol intake: current alcohol intake frequency: a few times a week what type of physical activity do you participate in: walking, bicycling and other details: Cory do you feel safe at home: Yes Vital Signs Vital Signs Vital Signs: 09/10/20 06:14 Temperature 97.8 F Temperature Source Temporal Pulse Rate 79 Respiratory Rate 16 Respiratory Pattern Normal Blood Pressure 139/90 H Blood Pressure Mean 106 Blood Pressure Source Monitor Blood Pressure Position Semi-Fowlers Blood Pressure Location Left Arm Lab / Micro Data Result Diagrams: 09/02/20 12:41 09/02/20 12:41 Labs: Laboratory Results - last 24 hr 09/10/20 06:01 POC Glucose 84 Radiology Impression Spine X-Ray 09/10/20 07:30 IMPRESSION: The localization instrument is seen overlying the posterior aspect of the L3-L4 disc space level. Electronically Signed: Victoriano Cordoba MD at 9:20 EDT , Service support ,
[2020-09-10 12:15] LABS: Bedside Glucose 173 mg/dL (70-110)
--- NOTE | 2020-09-10 13:50 | CON.PCM.HO_ITS ---
Assessment & Plan Assessment/Plan (1) Spinal stenosis of lumbosacral region: Status: Acute Code(s): M48.07 - Spinal stenosis, lumbosacral region (2) Hyperthyroidism: Status: Acute Code(s): E05.90 - Thyrotoxicosis, unspecified without thyrotoxic crisis or storm (3) HTN (hypertension): Status: Chronic Code(s): I10 - Essential (primary) hypertension (4) Depression: Status: Acute Code(s): F32.9 - Major depressive disorder, single episode, unspecified Plan: This is a 69 years old female patient underwent elective complete bilateral decompression of L3-L4 and L4-L5 for severe spinal stenosis and I am seeing this patient for postoperative medical management. #1 status post complete bilateral decompression of L3-L4/L4-L5: This was done for severe spinal stenosis of L3-L4 and L4-L5, postoperative day 1. Preoperative routine blood work and EKG reviewed, was unremarkable. Her vital signs are stable. She is on IV cefazolin for perioperative prophylaxis. She is on IV morphine and OxyIR as needed for pain. Spine surgery is managing. #2 hypertension: Stable, continue HCTZ. #3 hypothyroidism: Stable, continue thyroxine. #4 depression: Stable, continue bupropion and trazodone. #5 DVT prophylaxis: SCDs. This note was generated with [employer] dictation software. It may contain incorrect words, spelling, and punctuation that were not noted in checking the note before signing. HPI Consult Data Date of Consult: 09/10/20 HPI Narrative Reason for Consultation: Postoperative medical management. HPI Narrative: DAMIEN ROBERT, is a 69 F who underwent elective bilateral deco mpression of L3-L4 and L4-L5 for severe spinal stenosis at L3-L4 and L4-L5 and I am seeing this patient for postoperative medical management. At this time, patient complains of back pain, aching pain, mild to moderate, 5 out of 10 in severity and she could not get a comfortable position for this pain. No associated symptoms. She denied any other symptoms. She had a history of hypertension which has been under control with HCTZ. She has history of hypothyroidism and she has been on replacement with levothyroxine. She had a history of depression and she has been on bupropion and trazodone. At this time, her vital signs are stable. Her preoperative routine blood work that was done on September 02, 2020 was unremarkable. Preoperative EKG that was done on September 02, 2020 revealed normal sinus rhythm, no acute ischemic changes. She is on IV cefazolin for perioperative prophylaxis. She is on IV morphine and OxyIR as needed for pain. [facility] Medical History (Updated 09/10/20 @ 13:[address] Valeriy Jonas MD) H/O radioactive iodine thyroid ablation HTN (hypertension) Hyperthyroidism Home Medications cholecalciferol (vitamin D3) 3,000 unit PO DAILY 12/29/13 [History Last Taken Unknown] gabapentin 1,000 mg PO QHS 12/29/13 [History Last Taken Unknown] levothyroxine 75 mcg PO SUMOTUWEFRSA 12/29/13 [History Last Taken Unknown] omeprazole 40 mg PO DAILY 12/29/13 [History Last Taken Unknown] meloxicam 15 mg PO DAILY PRN PRN 04/25/18 [History Last Taken Unknown] bupropion HCl 300 mg 24 hr tablet, extended release 300 mg PO DAILY 08/17/20 [History Last Taken Unknown] tramadol 50 mg tablet 50 mg PO DAILY PRN PRN 08/17/20 [History Last Taken Unknown] trazodone 100 mg tablet 100 mg PO QHS tablet 08/17/20 [History Last Taken Unknown] acetaminophen 325 mg PO Q6H PRN PRN 08/31/20 [History Last Taken Unknown] biotin 10,000 mcg PO DAILY 08/31/20 [History Last Taken Unknown] cyanocobalamin (vitamin B-12) 500 mcg PO DAILY@0800 08/31/20 [History Last Taken Unknown] cyclobenzaprine 10 mg PO DAILY PRN PRN 08/31/20 [History Last Taken Unknown] hydrochlorothiazide 50 mg PO DAILY 08/31/20 [History Last Taken Unknown] levothyroxine 37.5 mcg PO TH 08/31/20 [History Last Taken Unknown] hydrocodone 10 mg-acetaminophen 325 mg tablet 1 tablet PO Q6H PRN #40 tablet 09/02/20 [Rx Last Taken Unknown] Allergy/AdvReac Type Severity Reaction Status Date / Time nizatidine [From Axid] Allergy Hives Verified 09/10/20 06:14 Sulfa (Sulfonamide Allergy Rash, oral Verified 09/10/20 06:14 Antibiotics) redness Family History (Updated 08/17/20 @ 13:10 by Lisa Mata) Mother Arthritis Father Diabetes Heart disease Sister Brain bleed Surgical History (Updated 08/17/20 @ 13:09 by Lisa Mata) H/O dilation and curettage Social History (Updated 09/02/20 @ 09:[address] Boogie Mclean, DO) household members: spouse housing: house Smoking Status: Former smoker alcohol intake: current alcohol intake frequency: a few times a week what type of physical activity do you participate in: walking, bicycling and other details: Cory do you feel safe at home: Yes ROS Constitutional Constitutional: Denies anorexia, chills, fatigue, fever(s) or malaise Eyes Eyes: Denies blurry vision, change in eye color, change in vision, double vision or eye pain ENT HEENT: Denies ear pain, epistaxis, headache(s), nasal congestion, post nasal drip or sore throat Cardiovascular Cardiovascular: Denies chest pain, dyspnea on exertion, edema, lightheadedness, orthopnea, palpitations, paroxysmal nocturnal dyspnea or syncope Respiratory/Chest Respiratory/Chest: Denies cough, dyspnea, hemoptysis, productive cough, shor tness of breath at rest, shortness of breath with exertion or wheezing Gastrointestinal Gastrointestinal: Denies abdominal pain, constipation, diarrhea, hematemesis, hematochezia, melena, nausea or vomiting Genitourinary Genitourinary: Denies burning urination, dysuria, hematuria, urinary hesitancy or urinary urgency Musculoskeletal Musculoskeletal: Reports back pain; Denies arthralgias, joint pain, joint swelling, myalgias or neck pain Neurologic Neurologic: Denies confusion, dizziness, focal weakness, headache(s), numbness, paresthesias, seizures, tingling or tremor(s) Psychiatric Psychiatric: Reports depression; Denies anxiety, homicidal ideation or suicidal ideation Endocrine Endocrinology: Denies change in body appearance, cold intolerance, heat intolerance, polydipsia or polyuria Hematologic/Lymphatic Hematologic/Lymphatic: Reports other; Denies easy bleeding, easy bruising or lymphadenopathy Allergic/Immunologic Allergic/Immunologic: Denies itchy eyes, rhinitis, throat swelling, tongue swelling, hives, urticaria or wheezing Physical Exam Const alert and oriented x3 Constitutional Narrative: She is in moderate pain. General Appearance: cooperative HEENT normocephalic Neck supple, no JVD and no carotid bruits Resp normal respiratory effort and clear to auscultation bilaterally Cardio regular rate, regular rhythm and no murmurs GI normal to inspection, nondistended, normoactive bowel sounds, soft to palpation and non-tender Extremity normal capillary refill and no clubbing, cyanosis or edema Skin no rashes or lesions noted General Skin Exam: no breakdown Neuro CN's II-XII intact bilaterally Psych cooperative and affect normal Lab / Micro Data Result Diagrams: 09/02/20 12:41 09/02/20 12:41 Labs: Laboratory Results - last 24 hr 09/10/20 09/10/20 06:01 12:11 POC Glucose 84 173 H Radiology Impression Spine X-Ray 09/10/20 07:30 IMPRESSION: The localization instrument is seen overlying the posterior aspect of the L3-L4 disc space level. Electronically Signed: Victoriano Cordoba MD at 9:20 EDT , Service support , Charges/Coding Inpatient E&M: 46557 Init Hosp L2
[2020-09-10] MEDS: Morphine 4 MG/ML Syringe IV (14:41)
[2020-09-10] MEDS: Cefazolin 1 GM/50 ML BAG IV ×2 (15:46→23:21)
[2020-09-10] MEDS: oxyCODONE 5 MG Tablet PO (17:28)
[2020-09-10] MEDS: Famotidine 20 MG Tablet PO (20:59)
[2020-09-10] MEDS: diazePAM 5 MG Tablet PO (20:59)
[2020-09-10] MEDS: traZODone 100 MG Tablet PO (20:59)
[2020-09-10] MEDS: Senna/Docusate Sodium 1 Tablet 2 TABLET PO (21:00)
[2020-09-10] MEDS: Gabapentin 100 MG Capsule PO (21:00)
[2020-09-11] VITALS (7 sets, daily range): BP systolic 110–126; BP diastolic 45–57; PULSE 69–79; RESP 16–18; TEMP 36.6–37.2; O2SAT 94–98
[2020-09-11] MEDS: 0.9% Saline Lock 10 ML Syringe IV ×4 (05:44→20:38)
[2020-09-11] MEDS: oxyCODONE 5 MG Tablet PO ×4 (05:44→20:41)
[2020-09-11] MEDS: Ensure Surgery 237 ML LIQUID PO ×2 (07:37→11:06)
[2020-09-11] MEDS: Senna/Docusate Sodium 1 Tablet 2 TABLET PO ×2 (07:37→20:37)
[2020-09-11] MEDS: diazePAM 5 MG Tablet PO ×2 (07:37→13:21)
[2020-09-11] MEDS: buPROPion (XL) 300 MG TABLET.XL PO (07:38)
[2020-09-11] MEDS: Famotidine 20 MG Tablet PO ×2 (07:38→20:36)
[2020-09-11] MEDS: hydroCHLOROthiazide 25 MG Tablet 50 MG PO (07:38)
[2020-09-11] MEDS: Pantoprazole Sodium 40 MG Tablet PO (07:38)
[2020-09-11] MEDS: Levothyroxine 75 MCG Tablet PO (09:18)
--- NOTE | 2020-09-11 09:50 | CASEMGMT ---
RN CM MANAGER PATHOLOGY CM to room to meet with patient for initial transition planning/care coordination assessment. RN SURAJ introduced self and role at [facility]. Pt voices understanding and consents to assessment at this time. Pt sitting up in chair in room in no distress at this time. Pt is A/O at this time and answers all questions appropriately. Care providers, pharmacy, and demographics verified/updated at this time. PCP:Dr Brown Specialists: Dr Mclean, Dr Annemarie Philip--TAWNY Bishop--dalila surgeon Preferred Pharmacy:[facility] retail Insurance: [employer] [facility] Prescription Benefit: Yes Living Will/HPOA: Has both LW and Healthcare POA, who is her , Leonard LNOK: , Leonard Living Arrangements: Lives w/her , Leonard, in one-story home w/2 steps to enter. Was independendt prior to surgery. able to help. Transportation: Pt and . Pt denies transportation concerns. DME: States has the following DME: walker, adjustable bed, rails/grab bars, shower chair, BSC Pt states no need for further DME at this time. HHC/SNF: No history of either. Denies need for HHC. Pt wishes to return home and states has no concerns with going home at time of discharge. CM to follow for any discharge planning/needs. Pt voices no concerns/needs at this time. Advised pt to ask for CM if any questions/concerns/needs arise. Voices understanding. PLAN: Home w/spousal support and discharge plans in place. Pawan THACKER RN, CM
[2020-09-11] MEDS: Morphine 4 MG/ML Syringe IV ×2 (11:01→15:10)
--- NOTE | 2020-09-11 12:47 | PCM.PN.ORT ---
Objective Data Objective Data Vital Signs: Vital Signs Temp Pulse Resp BP Pulse Ox 98.5 F 70 16 126/45 H 98 09/11/20 12:16 09/11/20 12:16 09/11/20 12:16 09/11/20 12:16 09/11/20 12:16 Oxygen Flow Rate (L/min) 6 Oxygen Delivery Method Room Air Weight: 149 lb 7.574 oz Body Mass Index (BMI) 29.2 Finger Stick Blood Glucose 173 Intake & Output: Intake and Output for Last 24 Hours 09/09/20 09/10/20 09/11/20 23:59 23:59 23:59 Intake Total 3779.00 / 3779.00 1758.33 / 1758.33 Output Total 975 / 975 970 / 970 Balance 2804.00 / 2804.00 788.33 / 788.33 Lab / Micro Data Result Diagrams: 09/02/20 12:41 09/02/20 12:41 Micro: Microbiology 09/02/20 12:41 Swab (Method) Nasal Screen MRSA/MSSA - Final Assessment & Plan Assessment/Plan (1) Spinal stenosis of lumbosacral region: Status: Acute Code(s): M48.07 - Spinal stenosis, lumbosacral region Plan: Postop day #1. Mrs. Tobar is seen on rounds. She has been ambulating as she reports that her leg pain is totally gone. Her back does hurt of course as expected. Her dressing is dry however she has had quite a bit of drainage into her Hemovac perhaps too much to remove it today. For that reason we are keeping her in 1 more day plus she still needs morphine for pain. We will plan on discharging her tomorrow. Neurologically she is intact.
--- NOTE | 2020-09-11 13:05 | CASEMGMT ---
JH RUELAS NOTE: To room to talk w/pt at this time. [place] form explained re: Observation status for treatment of lumbar decompression laminectomy. Explained hospitalization will be paid per insurance policy for Outpatient billing and condition will continue to be evaluated for Inpt necessity. Also let pt know that [facility] sends paper in the billing packet with their phone number if questions arise. Discussed Pharmacy section of [place] form and self administered medication guideline. Pt verbalizes understanding and does not have further questions. Form signed, copy made and placed in chart, and original given to pt. Pawan THACKER RN, CM
[2020-09-11] MEDS: traZODone 100 MG Tablet PO (20:37)
[2020-09-11] MEDS: Gabapentin 100 MG Capsule PO (20:37)
[2020-09-12 03:08] VITALS: BP 114/54; PULSE 79; RESP 16; TEMP 37.3; O2SAT 94
[2020-09-12] MEDS: Levothyroxine 75 MCG Tablet PO (05:31)
[2020-09-12] MEDS: diazePAM 5 MG Tablet PO (05:33)
[2020-09-12 07:00] LABS: Absolute Neutrophil Count 6.7 X10^3/uL (2.0-7.7); Basophil# 0.04 X10^3/uL; Basophil% 0.4 % (0-1); Eosinophil# 0.01 X10^3/uL; Eosinophils% 0.1 % (0-5); Hematocrit 33.2 % (37-47); Hemoglobin 10.9 g/dL (12.0-15.0); Lymphocyte % 16.7 % (19-41); Mean Corp Hgb Conc 32.8 g/dL (32-36); Mean Corpuscular Hgb 30.9 pg (27.0-32.0); Mean Corpuscular Volume 94.1 fL (81-99); Mean Platelet Vol. 9.3 fl (6.2-12.0); Monocyte# 1.26 X10^3/uL; Monocyte% 13.1 % (0-10); NRBC Flagged by Analyzer 0 % (0-5); Neutrophil # 6.65 X10^3/uL (2.7-7.7); Neutrophil % 69.3 % (47-70); Platelet Count 187 K/mm3 (150-450); RBC Distribution Width CV 12.5 % (11.6-14.6); RBC Distribution Width SD 43.2 fl (35.1-43.9); Red Blood Count 3.53 M/mm3 (4.2-5.4); White Blood Count 9.6 K/mm3 (4.4-11.0)
[2020-09-12 07:27] LABS: Anion Gap 6 (5-15); BUN 12 mg/dL (7-18); BUN/Creat Ratio 18.5 RATIO (10-20); Calcium,Total 8.2 mg/dL (8.5-10.1); Chloride 99 mmol/L (98-107); Creatinine, Serum 0.65 mg/dL (0.55-1.02); EST Glomerular Filtration Rate 96 mL/min (>60); Est Glom Filt Rate - Afr Amer 116 mL/min (>60); Glucose 124 mg/dL (74-106); Potassium 3.4 mmol/L (3.5-5.1); Sodium Level 134 mmol/L (136-145)
[2020-09-12] MEDS: Ondansetron 4 MG/2 ML Vial IV (08:37)
[2020-09-12] MEDS: 0.9% Saline Lock 10 ML Syringe IV (08:37)
[2020-09-12 10:17] VITALS: O2SAT 94
[2020-09-12 10:57] VITALS: BP 110/56; PULSE 69; RESP 18; TEMP 37.1; O2SAT 97
[2020-09-12] MEDS: Famotidine 20 MG Tablet PO (11:04)
[2020-09-12] MEDS: oxyCODONE 5 MG Tablet PO (11:04)
[2020-09-12] MEDS: Senna/Docusate Sodium 1 Tablet 2 TABLET PO (11:04)
[2020-09-12] MEDS: Pantoprazole Sodium 40 MG Tablet PO (11:04)
[2020-09-12] MEDS: hydroCHLOROthiazide 25 MG Tablet 50 MG PO (11:04)
[2020-09-12] MEDS: buPROPion (XL) 300 MG TABLET.XL PO (11:04)
[2020-09-12] MEDS: Ensure Surgery 237 ML LIQUID PO (11:05)
--- NOTE | 2020-09-12 15:09 | DS.PCM_ITS ---
Providers Date of Admission: 09/10/20 Primary Care Physician: Dr. Cori Brown MD Consultations 09/10/20 11:15 Consult: Hospitalist Routine Consulting Provider: Valeriy Jonas Reason for Consult: Medical Management EMERGENT Consult: No MD Notified: Yes Date Notified:: 09/10/20 Time Notified: 11:15 Method of Notification: phone Reason For Visit: LUMBAR DECOMPRESSION LAMINECTOMY L4-5, L3-4 Diagnosis Discharge Diagnosis (1) Spinal stenosis of lumbosacral region: Status: Acute Code(s): M48.07 - Spinal stenosis, lumbosacral region Medications at Discharge Home Medications cholecalciferol (vitamin D3) 3,000 unit PO DAILY 12/29/13 gabapentin 1,000 mg PO QHS 12/29/13 levothyroxine 75 mcg PO SUMOTUWEFRSA 12/29/13 omeprazole 40 mg PO DAILY 12/29/13 meloxicam 15 mg PO DAILY PRN PRN 04/25/18 bupropion HCl 300 mg 24 hr tablet, extended release 300 mg PO DAILY 08/17/20 tramadol 50 mg tablet 50 mg PO DAILY PRN PRN 08/17/20 trazodone 100 mg tablet 100 mg PO QHS tablet 08/17/20 acetaminophen 325 mg PO Q6H PRN PRN 08/31/20 biotin 10,000 mcg PO DAILY 08/31/20 cyanocobalamin (vitamin B-12) 500 mcg PO DAILY@0800 08/31/20 cyclobenzaprine 10 mg PO DAILY PRN PRN 08/31/20 hydrochlorothiazide 50 mg PO DAILY 08/31/20 levothyroxine 37.5 mcg PO TH 08/31/20 hydrocodone 10 mg-acetaminophen 325 mg tablet 1 tablet PO Q6H PRN #40 tablet 09/02/20 ABG / Lab / Microbiology Data Result Diagrams: 09/12/20 06:52 09/12/20 06:52 Laboratory: Laboratory Results - last 24 hr 09/12/20 09/12/20 06:52 06:52 WBC 9.6 RBC 3.53 L Hgb 10.9 L Hct 33.2 L MCV 94.1 MCH 30.9 MCHC 32.8 RDW Std Deviation 43.2 RDW Coeff of [place] 12.5 Plt Count 187 MPV 9.3 Immature Gran % (Auto) 0.400 Neut % (Auto) 69.3 Lymph % (Auto) 16.7 L Dickinson % (Auto) 13.1 H Eos % (Auto) 0.1 Baso % (Auto) 0.4 Absolute Neuts (auto) 6.7 Absolute Lymphs (auto) 1.60 Nucleated RBC % 0 Sodium 134 L Potassium 3.4 L Chloride 99 Carbon Dioxide 29.0 Anion Gap 6 BUN 12 Creatinine 0.65 Estim Creat Clear Calc 37.60 Est GFR (MDRD) Af Amer 116 Est GFR (MDRD) Non-Af 96 BUN/Creatinine Ratio 18.5 Glucose 124 H Calcium 8.2 L Microbiology: Microbiology 09/02/20 12:41 Swab (Method) Nasal Screen MRSA/MSSA - Final Meaningful Use Info Meaningful Use Diagnoses (Choose all that apply): None applicable Discharge Plan Admission Admit Date/Time: 09/10/20 13:42 Attending Provider: Bartolome Jamison Primary Care Provider: Cori Brown Consulting Providers: Valeriy Jonas Discharge Orders/Prescriptions Prescriptions: No Action bupropion HCl 300 mg tablet extended release 24 hr 300 mg PO DAILY RF: 0 tramadol 50 mg tablet 50 mg PO DAILY PRN PRN (Reason: Pain 1-10 Or Fever) RF: 0 trazodone 100 mg tablet 100 mg PO QHS RF: 0 hydrocodone-acetaminophen 10-325 mg tablet 1 tablet PO Q6H PRN (Reason: pain) Qty: 40 RF: 0 levothyroxine 75 MCG tablet 75 mcg PO SUMOTUWEFRSA RF: 0 gabapentin 300 MG capsule 1,000 mg PO QHS RF: 0 omeprazole 20 MG capsule 40 mg PO DAILY RF: 0 cholecalciferol (vitamin D3) 2,000 UNIT tablet 3,000 unit PO DAILY RF: 0 meloxicam 7.5 MG tablet 15 mg PO DAILY PRN PRN (Reason: inflamation) RF: 0 cyclobenzaprine 10 MG tablet 10 mg PO DAILY PRN PRN (Reason: muscle spasms) RF: 0 acetaminophen 325 MG tablet 325 mg PO Q6H PRN PRN (Reason: Pain 1-10 Or Fever) RF: 0 levothyroxine 75 MCG tablet 37.5 mcg PO TH RF: 0 cyanocobalamin (vitamin B-12) 500 MCG tablet 500 mcg PO DAILY@0800 RF: 0 hydrochlorothiazide 25 MG tablet 50 mg PO DAILY RF: 0 biotin 10,000 MCG tablet,disintegrating 10,000 mcg PO DAILY RF: 0 Referrals: Cori Brown MD [Primary Care Provider] - Disposition Patient Disposition: Home, self care
--- NOTE | 2020-09-12 15:11 | PCM.DC ---
Discharge Instructions Outpatient Procedure Reason For Visit: LUMBAR DECOMPRESSION LAMINECTOMY L4-5, L3-4 Follow Up Care Test Results: Test results from this visit will be discussed in further detail at your follow-up appointment, if applicable. Discharge Plan Admission Admit Date/Time: 09/10/20 13:42 Attending Provider: Bartolome Jamison Primary Care Provider: Cori Brown Consulting Providers: Valeriy Jonas Discharge Orders/Prescriptions Prescriptions: No Action bupropion HCl 300 mg tablet extended release 24 hr 300 mg PO DAILY RF: 0 tramadol 50 mg tablet 50 mg PO DAILY PRN PRN (Reason: Pain 1-10 Or Fever) RF: 0 trazodone 100 mg tablet 100 mg PO QHS RF: 0 hydrocodone-acetaminophen 10-325 mg tablet 1 tablet PO Q6H PRN (Reason: pain) Qty: 40 RF: 0 levothyroxine 75 MCG tablet 75 mcg PO SUMOTUWEFRSA RF: 0 gabapentin 300 MG capsule 1,000 mg PO QHS RF: 0 omeprazole 20 MG capsule 40 mg PO DAILY RF: 0 cholecalciferol (vitamin D3) 2,000 UNIT tablet 3,000 unit PO DAILY RF: 0 meloxicam 7.5 MG tablet 15 mg PO DAILY PRN PRN (Reason: inflamation) RF: 0 cyclobenzaprine 10 MG tablet 10 mg PO DAILY PRN PRN (Reason: muscle spasms) RF: 0 acetaminophen 325 MG tablet 325 mg PO Q6H PRN PRN (Reason: Pain 1-10 Or Fever) RF: 0 levothyroxine 75 MCG tablet 37.5 mcg PO TH RF: 0 cyanocobalamin (vitamin B-12) 500 MCG tablet 500 mcg PO DAILY@0800 RF: 0 hydrochlorothiazide 25 MG tablet 50 mg PO DAILY RF: 0 biotin 10,000 MCG tablet,disintegrating 10,000 mcg PO DAILY RF: 0 Referrals: Cori Brown MD [Primary Care Provider] - Disposition Patient Disposition: Home, self care
[2020-09-12 15:40] VITALS: BP 105/50; PULSE 76; RESP 16; TEMP 36.8; O2SAT 98
== END 2020-09-12 15:43 | disposition home or self-care (01) ==
LOC: SDC 13:51 → MS3 22:39
PROVIDERS: Anesthesiology; Admitting Provider Orthopaedic Surgery; PCP Internal Medicine; Referring Provider Orthopaedic Surgery; Visit Provider Family Medicine
PROC: (CPT 63030; principal; 2020-09-10 07:00)
DX: M48.062 Spinal stenosis, lumbar region with neurogenic claudication (principal); F41.9 Anxiety disorder, unspecified; F32.9 Major depressive disorder, single episode, unspecified; Z79.899 Other long term (current) drug therapy; I10 Essential (primary) hypertension; E05.90 Thyrotoxicosis, unspecified without thyrotoxic crisis or storm; Z87.891 Personal history of nicotine dependence; E03.9 Hypothyroidism, unspecified; G25.81 Restless legs syndrome; K21.9 Gastro-esophageal reflux disease without esophagitis; E78.00 Pure hypercholesterolemia, unspecified; R94.31 Abnormal electrocardiogram [ECG] [EKG]
CPT/HCPCS: 00670; 63047; 63048; 36415; 72020; 80048; 82962; 83735; 84443; 85025; 86703; 86704; 86705; 86706; 86708; 86709; 86803; 87081; 87340; 93005; 96361; 96365; 96366; 96375; 96376; 97162; 97530; 99218; 99251; J7120; A4216; G0378; G0379; G0463; J2405

== ENCOUNTER → 2021-01-20 07:21 | Outpatient (CLI) | payer MEDICARE, SELFPAY ==
--- NOTE | 2021-01-20 07:24 | BI_ITS ---
MAMMOGRAPHY - BILATERAL SCREENING REASON FOR EXAM: Female, 70 years old. Routine annual screening examination. PERTINENT HISTORY: Non-contributory. TECHNIQUE: Digital bilateral breast kike (3D mammographic acquisition) in the CC and MLO projections. 2-D mediolateral oblique (MLO) and craniocaudad (CC) views of both breasts were obtained. CAD: Full Field Digital Mammography with Computer Added Detection was performed. COMPARISON: Comparison is made with prior study dated 10/08/2019 and 08/07/2018. FINDINGS: Breast Composition: There are scattered areas of fibroglandular density. There are no dominant masses or suspicious calcifications. Stable 5 mm well-defined nodule in the upper outer aspect of the left breast most likely representing a small lymph node. Stable small benign appearing bilateral axillary lymph nodes. No other significant abnormalities are identified. There has been no significant change since the prior study. BI/SCRN MAMM (CAD)W/KIKE BILAT IMPRESSION: Stable bilateral screening mammogram. Yearly follow-up mammogram recommended. (A) ASSESSMENT CATEGORY: BIRADS Category 2: Benign. A letter regarding these results will be sent to the patient by the facility within 30 days. Approximately 10% of breast cancers are not detected by mammography. A normal mammogram should not delay biopsy of a clinically suspicious abnormality. [id number] Electronically Signed: Victoriano Cordoba MD at 8:34 EDT , Service support ,
== END ==
PROVIDERS: PCP Internal Medicine; Referring Provider Internal Medicine; Visit Provider Internal Medicine
DX: Z12.31 Encounter for screening mammogram for malignant neoplasm of breast (principal)
CPT/HCPCS: 77063; 77067

== ENCOUNTER → 2022-01-31 | Outpatient (CLI) | payer MEDICARE, SELFPAY ==
--- NOTE | 2022-01-31 08:22 | BI_ITS ---
MAMMOGRAPHY - BILATERAL SCREENING 3-D TOMOSYNTHESIS REASON FOR EXAM: Female, 71 years old. SCREENING PERTINENT HISTORY: No significant family history. TECHNIQUE: 2-D mammograms and 3-D Tomosynthesis of the breast (s) were performed. CAD was performed. COMPARISON: 01/20/2021 FINDINGS: The breast composition is composed of scattered fibroglandular density. Scattered benign calcifications are seen. No dense spiculated masses or suspicious microcalcifications are identified. No architectural distortion is identified. There is no skin thickening or retraction. There has been no significant change since the prior study. BI/SCRN MAMM (CAD)W/KIKE BILAT IMPRESSION: No mammographic signs of malignancy. Routine yearly mammograms recommended. ASSESSMENT CATEGORY: BIRADS Category 1: Negative. A letter regarding these results will be sent to the patient by the facility within 30 days. FOLLOW UP RECOMMENDATION: Yearly follow up mammogram recommended. (A) Approximately 10% of breast cancers are not detected by mammography. A normal mammogram should not delay biopsy of a clinically suspicious abnormality. Electronically Signed: Rigoberto Hawk MD at 9:19 EDT ,
== END | disposition home or self-care (01) ==
LOC: OPBI 08:13
PROVIDERS: PCP Internal Medicine; Referring Provider Clinical Nurse Specialist; Visit Provider Clinical Nurse Specialist
DX: Z12.31 Encounter for screening mammogram for malignant neoplasm of breast (principal)
CPT/HCPCS: 77063; 77067

== ENCOUNTER 2022-03-06 17:18 | Emergency (ER) | payer MEDICARE, SELFPAY ==
[2022-03-06 17:19] VITALS: PULSE 68; RESP 15; TEMP 36.8; O2SAT 100; BMI 27.4
[2022-03-06 17:21] VITALS: BP 185/69
[2022-03-06 17:30] VITALS: BP 185/69; PULSE 68; RESP 15; TEMP 36.8; O2SAT 100
--- NOTE | 2022-03-06 18:17 | EX.ED.DYSGE1 ---
HPI History of Present Illness Chief Complaint: General Illness Narrative Narrative: Patient presenting with concern for nausea, vomiting, diarrhea. Patient had initially started with a headache and body aches as well as chills earlier this week. She did a home test for COVID-19 and it was positive on Monday. Since that time she has had more trouble holding down food and fluids. She did talk to her PCP who prescribed her Paxil elevated and Zofran. She states even though the Zofran is dissolvable she cannot hold this down. She has a history of GERD and has not been able to take her omeprazole either. No cece abdominal pain. No cough or shortness of breath. Patient does not report any fever. [facility] Medical History H/O radioactive iodine thyroid ablation HTN (hypertension) Hyperthyroidism Strain of right forearm Strain of right hand Strain of right wrist Home Medications cholecalciferol (vitamin D3) 50 mcg (2,000 unit) tablet 3,000 unit PO DAILY supplement 12/29/13 [History Last Taken Unknown] gabapentin 300 mg capsule 1,000 mg PO QHS pain 12/29/13 [History Last Taken Unknown] levothyroxine 75 mcg tablet 75 mcg PO SUMOTUWEFRSA thyroid 12/29/13 [History Last Taken Unknown] omeprazole 20 mg capsule,delayed release 40 mg PO DAILY GERD 12/29/13 [History Last Taken Unknown] meloxicam 7.5 mg tablet 15 mg PO DAILY PRN PRN inflamation 04/25/18 [History Last Taken Unknown] bupropion HCl 300 mg 24 hr tablet, extended release 300 mg PO DAILY anxiety 08/17/20 [History Last Taken Unknown] tramadol 50 mg tablet 50 mg PO DAILY PRN PRN Pain 1-10 Or Fever 08/17/20 [History Last Taken Unknown] trazodone 100 mg tablet 100 mg PO QHS insomnia 08/17/20 [History Last Taken Unknown] acetaminophen 325 mg tablet 325 mg PO Q6H PRN PRN Pain 1-10 Or Fever 08/31/20 [History Last Taken Unknown] biotin 10,000 mcg disintegrating tablet 10,000 mcg PO DAILY supplement 08/31/20 [History Last Taken Unknown] cyanocobalamin (vitamin B-12) 500 mcg tablet 500 mcg PO DAILY@0800 supplement 08/31/20 [History Last Taken Unknown] cyclobenzaprine 10 mg tablet 10 mg PO DAILY PRN PRN muscle spasms 08/31/20 [History Last Taken Unknown] hydrochlorothiazide 25 mg tablet 50 mg PO DAILY blood pressure 08/31/20 [History Last Taken Unknown] levothyroxine 75 mcg tablet 37.5 mcg PO TH thyroid 08/31/20 [History Last Taken Unknown] hydrocodone 10 mg-acetaminophen 325 mg tablet 1 tablet PO Q6H PRN pain #40 tabs 09/02/20 [Rx Last Taken Unknown] Allergy/AdvReac Type Severity Reaction Status Date / Time nizatidine [From Axid] Allergy Hives Verified 03/06/22 17:19 Sulfa (Sulfonamide Allergy Rash, oral Verified 03/06/22 17:19 Antibiotics) redness Family History Mother Arthritis Father Diabetes Heart disease Sister Brain bleed Surgical History H/O dilation and curettage Social History household members: spouse housing: house Smoking Status: Former smoker alcohol intake: current alcohol intake frequency: a few times a week what type of physical activity do you participate in: walking, bicycling and other details: Cory do you feel safe at home: Yes ROS ROS ED Constitutional Constitutional ED: Reports chills ENT ENT ED: Denies rhinorrhea or sore throat Cardiovascular Cardiovascular: Denies chest pain or palpitations Respiratory/Chest Respiratory/Chest: Denies cough or dyspnea Gastrointestinal Gastrointestinal: Reports diarrhea, nausea and vomiting Genitourinary Genitourinary ED: Denies dysuria or hematuria Musculoskeletal Musculoskeletal: Reports myalgias Integumentary Denies abscess Neurologic Neurologic: Denies headache(s) or paresthesias Psychiatric Psychiatric: Denies anxiety or depression Endocrine Endocrinology: Denies cold intolerance or heat intolerance EXAM Physical Exam Const Vital Signs: 03/06/22 17:19 03/06/22 17:21 03/06/22 18:18 Temperature 98.2 F Temperature Source Temporal Pulse Rate 68 Respiratory Rate 15 Respiratory Effort Normal Non-Labored Respiratory Pattern Normal Blood Pressure 185/69 H Blood Pressure Mean 107 Pulse Ox 100 Oxygen Delivery Method Room Air 03/06/22 17:30 Temperature 98.2 F Temperature Source Temporal Pulse Rate 68 Respiratory Rate 15 Respiratory Effort Respiratory Pattern Blood Pressure 185/69 H Blood Pressure Mean 107 Pulse Ox 100 Oxygen Delivery Method Room Air Positive well nourished General Appearance ED: NAD; Negative for pallor HEENT Reports moist mucous membranes Negative for trauma Eyes Negative for PERRL or EOMs intact bilaterally General Eye ED: Negative for pale conjunctiva or scleral icterus Resp normal respiratory effort Cardio regular rate and regular rhythm GI normal to inspection, nondistended, normoactive bowel sounds Back/Spine no CVA tenderness Extremity normal to inspection Neuro oriented x3 and CN's II-XII intact bilaterally Sensorium / Orientation: alert Motor Exam: strength 5/5 throughout Psych mental status grossly normal Skin no rashes or lesions noted and no wounds General Skin Exam: Negative for jaundice or pallor MDM MDM MDM Narrative Medical decision making narrative: Patient presenting with nausea and vomiting spells diarrhea. Patient has Zofran at home which she states has not helped. She did report that she felt better most of the day physically but has not been able to hold down food or fluids. Zofran not helping. She also has acid reflux and cannot take her omeprazole. Patient given 12.5 mg IM Phenergan. When her nausea is improved she will receive a GI cocktail. We will see if this helps. If it does not we discussed establishing an IV medications. Patient feeling well 8:00 PM. Her nausea is resolving. She feels comfortable going home. I will give her a prescription for Phenergan for home. Return precautions were discussed. Impression: 1. COVID-19 2. Nausea/vomiting 3. Diarrhea Lab Data Attestation: I reviewed the patient's lab results. Discharge Plan Triage Chief Complaint: General Illness ED Provider: Leonard Daniels Dx/Rx/DC Orders Prescriptions: No Action bupropion HCl 300 mg tablet extended release 24 hr 300 mg PO DAILY tramadol 50 mg tablet 50 mg PO DAILY PRN PRN (Reason: Pain 1-10 Or Fever) trazodone 100 mg tablet 100 mg PO QHS Label Comments: TAKE 1 TABLET BY MOUTH DAILY AT BEDTIME. DIRECTED hydrocodone-acetaminophen 10-325 mg tablet 1 tablet PO Q6H PRN (Reason: pain) Qty: 40 0RF levothyroxine 75 MCG tablet 75 mcg PO SUMOTUWEFRSA gabapentin 300 MG capsule 1,000 mg PO QHS omeprazole 20 MG capsule 40 mg PO DAILY cholecalciferol (vitamin D3) 2,000 UNIT tablet 3,000 unit PO DAILY meloxicam 7.5 MG tablet 15 mg PO DAILY PRN PRN (Reason: inflamation) cyclobenzaprine 10 MG tablet 10 mg PO DAILY PRN PRN (Reason: muscle spasms) acetaminophen 325 MG tablet 325 mg PO Q6H PRN PRN (Reason: Pain 1-10 Or Fever) levothyroxine 75 MCG tablet 37.5 mcg PO TH cyanocobalamin (vitamin B-12) 500 MCG tablet 500 mcg PO DAILY@0800 hydrochlorothiazide 25 MG tablet 50 mg PO DAILY biotin 10,000 MCG tablet,disintegrating 10,000 mcg PO DAILY Primary Care Provider: Cori Brown Referrals: Cori Brown MD [Primary Care Provider] -
[2022-03-06] MEDS: Mag Hydrox/Al Hydrox/Simeth 30 ML UDC PO (18:33)
[2022-03-06] MEDS: proMETHazine 25 MG/ML Syringe 12.5 MG IM (18:33)
[2022-03-06 20:30] VITALS: PULSE 78; RESP 15; O2SAT 99
== END 2022-03-06 20:30 | disposition home or self-care (01) ==
PROVIDERS: Emergency Provider Student in an Organized Health Care Education/Training Program; PCP Internal Medicine; Visit Provider Student in an Organized Health Care Education/Training Program
DX: U07.1 COVID-19 (principal); I10 Essential (primary) hypertension; K21.9 Gastro-esophageal reflux disease without esophagitis; Z79.890 Hormone replacement therapy; Z79.899 Other long term (current) drug therapy; Z87.891 Personal history of nicotine dependence
CPT/HCPCS: 96372; 99283

== ENCOUNTER 2022-03-07 03:32 | Emergency (ER) | payer MEDICARE, SELFPAY ==
[2022-03-07 03:32] VITALS: BP 148/80; PULSE 65; RESP 18; TEMP 36.4; O2SAT 98; BMI 29.2
--- NOTE | 2022-03-07 03:45 | EDS_ITS ---
HPI History of Present Illness Chief Complaint: Weakness Informant: patient and EMS Onset/Context/Timing Onset: Days (5-6) Context: Gradual Onset Timing: Continuous Quality: Weak Location: All over Current Severity: Severe Maximum Severity: Severe Worsened by: Continued diarrhea Relieved by: Nothing Associated Symptoms Associated Symptoms: n/v/d Narrative Narrative: Patient having diarrhea associated with COVID, was seen here 8 hours ago or so for the same thing. Patient started having symptoms of COVID 5 or 6 days ago tested positive at home, unsure of where she picked it up from. She has been vaccinated. She was prescribed Paxlovid, she took 2 doses 2 or 3 days ago, and subsequently started having nausea, diarrhea, followed by vomiting, she stopped taking the drug because she thought it was causing the diarrhea and vomiting. She states she is having a bit of pain in her right side but denies any abdominal pain. She is coughing, myalgias, malaise no fevers, and denies any dyspnea. She has not been checking her pulse ox at home. The diarrhea is fairly profuse. No history of C. difficile, no travel out of the area recently, no antibiotics for anything recently. She states tonight she got up had diarrhea all over, and was so weak she had trouble getting up off of the floor. She did not fall or injure herself. [facility] Medical History (Updated 03/07/22 @ 04:[address] Tez Cochran MD) Depression H/O radioactive iodine thyroid ablation HTN (hypertension) Hyperthyroidism Hypothyroidism (acquired) Strain of right forearm Strain of right hand Strain of right wrist Home Medications cholecalciferol (vitamin D3) 50 mcg (2,000 unit) tablet 3,000 unit PO DAILY supplement 12/29/13 [History Last Taken Unknown] gabapentin 300 mg capsule 1,000 mg PO QHS pain 12/29/13 [History Last Taken Unknown] levothyroxine 75 mcg tablet 75 mcg PO SUMOTUWEFRSA thyroid 12/29/13 [History Last Taken Unknown] omeprazole 20 mg capsule,delayed release 40 mg PO DAILY GERD 12/29/13 [History Last Taken Unknown] meloxicam 7.5 mg tablet 15 mg PO DAILY PRN PRN inflamation 04/25/18 [History Last Taken Unknown] bupropion HCl 300 mg 24 hr tablet, extended release 300 mg PO DAILY anxiety 08/17/20 [History Last Taken Unknown] tramadol 50 mg tablet 50 mg PO DAILY PRN PRN Pain 1-10 Or Fever 08/17/20 [History Last Taken Unknown] trazodone 100 mg tablet 100 mg PO QHS insomnia 08/17/20 [History Last Taken Unknown] acetaminophen 325 mg tablet 325 mg PO Q6H PRN PRN Pain 1-10 Or Fever 08/31/20 [History Last Taken Unknown] biotin 10,000 mcg disintegrating tablet 10,000 mcg PO DAILY supplement 08/31/20 [History Last Taken Unknown] cyanocobalamin (vitamin B-12) 500 mcg tablet 500 mcg PO DAILY@0800 supplement 08/31/20 [History Last Taken Unknown] cyclobenzaprine 10 mg tablet 10 mg PO DAILY PRN PRN muscle spasms 08/31/20 [History Last Taken Unknown] hydrochlorothiazide 25 mg tablet 50 mg PO DAILY blood pressure 08/31/20 [History Last Taken Unknown] levothyroxine 75 mcg tablet 37.5 mcg PO TH thyroid 08/31/20 [History Last Taken Unknown] hydrocodone 10 mg-acetaminophen 325 mg tablet 1 tablet PO Q6H PRN pain #40 tabs 09/02/20 [Rx Last Taken Unknown] promethazine 12.5 mg rectal suppository 12.5 mg GA TID PRN nausea and vomiting #12 ea 03/06/22 [Rx Last Taken Unknown] promethazine 25 mg tablet 25 mg PO TID PRN nausea and vomiting #20 tabs 03/06/22 [Rx Last Taken Unknown] Allergy/AdvReac Type Severity Reaction Status Date / Time nizatidine [From Axid] Allergy Hives Verified 03/06/22 17:19 Sulfa (Sulfonamide Allergy Rash, oral Verified 03/06/22 17:19 Antibiotics) redness Family History Mother Arthritis Father Diabetes Heart disease Sister Brain bleed Surgical History H/O dilation and curettage Social History household members: spouse housing: house Smoking Status: Former smoker alcohol intake: current alcohol intake frequency: a few times a week what type of physical activity do you participate in: walking, bicycling and other details: Cory do you feel safe at home: Yes ROS ROS ED Constitutional Constitutional ED: Reports anorexia, body ache(s), fatigue, malaise and weakness; Denies chills or fever(s) Eyes Eyes: Denies change in vision or diplopia ENT ENT ED: Denies ear pain, rhinorrhea or sore throat Cardiovascular Cardiovascular: Denies chest pain or palpitations Respiratory/Chest Respiratory/Chest: Reports cough; Denies dyspnea Gastrointestinal Gastrointestinal: Reports diarrhea, nausea and vomiting; Denies abdominal pain or melena Genitourinary Genitourinary ED: Denies dysuria or hematuria Musculoskeletal Musculoskeletal: Reports myalgias; Denies back pain or neck pain Integumentary Denies abscess or rash Neurologic Neurologic: Denies headache(s), paresthesias or weakness Psychiatric Psychiatric: Denies anxiety or suicidal thoughts EXAM Physical Exam Const Vital Signs: 03/07/22 03:32 03/07/22 03:32 Temperature 97.6 F L Temperature Source Temporal Pulse Rate 65 Respiratory Rate 18 Respiratory Effort Normal Respiratory Pattern Normal Blood Pressure 148/80 H Blood Pressure Mean 102 Pulse Ox 98 Oxygen Delivery Method Room Air Positive well nourished and well developed General Appearance ED: well developed and NAD HEENT Reports moist mucous membranes normocephalic and atraumatic Eyes PERRL and EOMs intact bilaterally Neck full ROM and supple Resp normal respiratory effort and clear to auscultation bilaterally Cardio regular rate, regular rhythm and no murmurs Rate: Negative for tachycardic GI non-tender and non-distended Auscultation: normoactive bowel sounds Palpation: soft Back/Spine no CVA tenderness General Back: other FROM Extremity normal to inspection General Extremety ED: Negative for edema, pulses abnormal or tenderness General Extremity: Negative for edema or pulses abnormal Neuro oriented x3, CN's II-XII intact bilaterally and no sensory deficits noted Sensorium / Orientation: awake and alert Motor Exam: strength 5/5 throughout Skin no rashes or lesions noted and no wounds MDM MDM MDM Narrative Medical decision making narrative: Patient was given IV fluids and Reglan and she was feeling better. She was able to tolerate oral fluids. Her vital signs are noted and stable. Obtain labs, they are unremarkable. No major dehydration. Ruled out pancreatitis and elevated liver enzymes. arrived and provided more history. The patient was unable to provide these details. Sounds like she had gotten up and went to the toilet without any difficulty, and she had a lot of diarrhea again, and felt lightheaded. She got up off the toilet and was feeling more lightheaded, and then she collapsed on the floor and looks pale according to her , patient states she was near syncopal and then she had more diarrhea on the floor. I think she had a vagal reaction. In describing this, they both agree. She was too weak to get up, but this was while she was near syncopal and pale. Now she is less weak and able to stand, tolerating oral fluids. She was already prescribed Phenergan, it is at the pharmacy but it was too late to get them since she was just here several hours ago. She is stable for discharge home and comfortable with this plan of supportive care. At discharge ambulatory without any difficulty, consistent with all of this. Lab Data Attestation: I reviewed the patient's lab results. Labs: Laboratory Results - last 24 hr 03/07/22 03/07/22 03:38 03:38 WBC 3.9 L RBC 4.51 Hgb 14.7 Hct 42.2 MCV 93.6 MCH 32.6 H MCHC 34.8 RDW Std Deviation 42.9 RDW Coeff of [place] 12.4 Plt Count 226 MPV 11.2 Immature Gran % (Auto) 0.300 Neut % (Auto) 14.5 L Lymph % (Auto) 72.1 H Laurens % (Auto) 12.3 H Eos % (Auto) 0.5 Baso % (Auto) 0.3 Absolute Neuts (auto) 0.6 L Absolute Lymphs (auto) 2.81 Nucleated RBC % 0 Differential Comment SCANNED Sodium 135 L Potassium 4.5 Chloride 101 Carbon Dioxide 28.0 Anion Gap 6 BUN 13 Creatinine 0.82 Estim Creat Clear Calc 49.05 Est GFR (MDRD) Af Amer 88 Est GFR (MDRD) Non-Af 72 BUN/Creatinine Ratio 15.8 Glucose 128 H Calcium 8.6 Total Bilirubin 0.40 AST 46 H ALT 38 Alkaline Phosphatase 78 Total Protein 6.7 Albumin 3.2 Globulin 3.5 Albumin/Globulin Ratio 0.9 Lipase 156 Discharge Plan Triage Chief Complaint: Weakness ED Provider: Tez Cochran Dx/Rx/DC Orders Clinical Impression: Vasovagal near syncope, Diarrhea due to COVID-19 Instructions: Coronavirus Disease 2019 (COVID-19): Caring for Yourself or Others, ED Diarrhea, Viral (Adult) Prescriptions: No Action bupropion HCl 300 mg tablet extended release 24 hr 300 mg PO DAILY tramadol 50 mg tablet 50 mg PO DAILY PRN PRN (Reason: Pain 1-10 Or Fever) trazodone 100 mg tablet 100 mg PO QHS Label Comments: TAKE 1 TABLET BY MOUTH DAILY AT BEDTIME. DIRECTED hydrocodone-acetaminophen 10-325 mg tablet 1 tablet PO Q6H PRN (Reason: pain) Qty: 40 0RF levothyroxine 75 MCG tablet 75 mcg PO SUMOTUWEFRSA gabapentin 300 MG capsule 1,000 mg PO QHS omeprazole 20 MG capsule 40 mg PO DAILY cholecalciferol (vitamin D3) 2,000 UNIT tablet 3,000 unit PO DAILY meloxicam 7.5 MG tablet 15 mg PO DAILY PRN PRN (Reason: inflamation) cyclobenzaprine 10 MG tablet 10 mg PO DAILY PRN PRN (Reason: muscle spasms) acetaminophen 325 MG tablet 325 mg PO Q6H PRN PRN (Reason: Pain 1-10 Or Fever) levothyroxine 75 MCG tablet 37.5 mcg PO TH cyanocobalamin (vitamin B-12) 500 MCG tablet 500 mcg PO DAILY@0800 hydrochlorothiazide 25 MG tablet 50 mg PO DAILY biotin 10,000 MCG tablet,disintegrating 10,000 mcg PO DAILY promethazine 25 mg tablet 25 mg PO TID PRN (Reason: nausea and vomiting) Qty: 20 0RF promethazine 12.5 mg suppository 12.5 mg GA TID PRN (Reason: nausea and vomiting) Qty: 12 0RF Rx Instructions: do not give 3rd daily dose after evening meal or within 4hr before bed Primary Care Provider: Cori Brown Referrals: Cori Brown MD [Primary Care Provider] - As Needed Disposition Disposition: Home, Self Care Discharge Date/Time: 03/07/22 05:05
[2022-03-07] MEDS: 0.9% Normal Saline 1,000 ML 999 ML IV (03:54)
[2022-03-07] MEDS: Metoclopramide 10 MG/2 ML Vial 5 MG IV (03:54)
[2022-03-07 04:04] LABS: Absolute Lymphocyte Count 2.81 X10^3/uL (0.83-4.51); Absolute Neutrophil Count 0.6 X10^3/uL (2.0-7.7); Basophil# 0.01 X10^3/uL; Basophil% 0.3 % (0-1); Eosinophil# 0.02 X10^3/uL; Eosinophils% 0.5 % (0-5); Hematocrit 42.2 % (37-47); Hemoglobin 14.7 g/dL (12.0-15.0); Lymphocyte # 2.81 X10^3/ul (0.83-4.51); Lymphocyte % 72.1 % (19-41); Mean Corp Hgb Conc 34.8 g/dL (32-36); Mean Corpuscular Hgb 32.6 pg (27.0-32.0); Mean Corpuscular Volume 93.6 fL (81-99); Mean Platelet Vol. 11.2 fl (6.2-12.0); Monocyte# 0.48 X10^3/uL; Monocyte% 12.3 % (0-10); NRBC Flagged by Analyzer 0 % (0-5); Neutrophil # 0.57 X10^3/uL (2.7-7.7); Neutrophil % 14.5 % (47-70); POSITIVE DIFFERENTIAL YES; Platelet Count 226 K/mm3 (150-450); RBC Distribution Width CV 12.4 % (11.6-14.6); RBC Distribution Width SD 42.9 fl (35.1-43.9); Red Blood Count 4.51 M/mm3 (4.2-5.4); White Blood Count 3.9 K/mm3 (4.4-11.0)
[2022-03-07 04:06] LABS: Differential Indicated SCAN CRITERIA MET
[2022-03-07 04:19] LABS: ALB/GLOB Ratio 0.9 RATIO (0.9-2.4); AST(SGOT) 46 U/L (15-37); Alanine Aminotransfer ALT/SGPT 38 U/L (13-56); Albumin, Serum 3.2 g/dL (3.2-5.0); Alkaline Phosphatase 78 U/L (45-117); Anion Gap 6 (5-15); BUN 13 mg/dL (7-18); BUN/Creat Ratio 15.8 RATIO (10-20); Calcium,Total 8.6 mg/dL (8.5-10.1); Chloride 101 mmol/L (98-107); Creatinine, Serum 0.82 mg/dL (0.55-1.02); EST Glomerular Filtration Rate 72 mL/min (>60); Est Glom Filt Rate - Afr Amer 88 mL/min (>60); Estimated Creatinine Clearance 49.05 ml/min; Globulin 3.5 g/dL (2.2-4.2); Glucose 128 mg/dL (74-106); Lipase 156 U/L (73-393); Potassium 4.5 mmol/L (3.5-5.1); Protein, Total 6.7 g/dL (6.4-8.2); Sodium Level 135 mmol/L (136-145)
[2022-03-07 04:49] LABS: Differential Comment SCANNED
== END 2022-03-07 05:05 | disposition home or self-care (01) ==
LOC: ED 03:54
PROVIDERS: Emergency Provider Emergency Medicine; PCP Internal Medicine; Visit Provider Emergency Medicine
DX: U07.1 COVID-19 (principal); R19.7 Diarrhea, unspecified; R53.1 Weakness; R55 Syncope and collapse; I10 Essential (primary) hypertension; E03.9 Hypothyroidism, unspecified; F32.A Depression, unspecified; Z79.1 Long term (current) use of non-steroidal anti-inflammatories (NSAID); Z79.890 Hormone replacement therapy; Z79.899 Other long term (current) drug therapy; Z87.891 Personal history of nicotine dependence
CPT/HCPCS: 80053; 83690; 85025; 96361; 96374; 99285; J7030

== ENCOUNTER → 2022-04-25 | Outpatient (CLI) | payer MEDICARE, SELFPAY ==
--- NOTE | 2022-04-25 12:45 | ECHOD_ITS ---
Reason For Study: ARRYTHMIS Procedure This was a 2D Doppler, Color Flow transthoracic echocardiogram. Exam performed in department. Left Ventricle Normal LV size. Left ventricular systolic function is normal. The estimated ejection fraction is 70 %. No regional wall motion abnormalities noted. Right Ventricle Normal RV size. Normal systolic function. Atria Normal left atrium. Normal right atrium. Mitral Valve Normal mitral valve. Mild (1+) eccentric mitral valve insufficiency. Tricuspid Valve Normal tricuspid valve. Mild tricuspid valve insufficiency. Aortic Valve Trisinus/trileaflet aortic valve. Pulmonic Valve Normal pulmonic valve. Great Vessels Normal aortic root. The pulmonary artery is normal size. Normal inferior vena cava. Pericardium/Pleural No pericardial effusion. MMode/2D Measurements & Calculations RVDd: 2.4 cm IVSd: 1.0 cm Ao root diam: 3.1 cm LAV(MOD-bp): 47.2 ml LVAd ap4: 24.1 cm2 SV(MOD-sp4): 42.1 ml LAV(MOD-bp) Indexed: 27.6 ml/m2 LVLd ap4: 7.2 cm LAV(MOD-sp2): 48.6 ml EDV(MOD-sp4): 65.2 ml LAV(MOD-sp4): 43.7 ml EDV(sp4-el): 68.1 ml LVAs ap4: 12.6 cm2 LVLs ap4: 6.0 cm ESV(MOD-sp4): 23.1 ml ESV(sp4-el): 22.4 ml EF(MOD-sp4): 64.6 % EF(sp4-el): 67.1 % SV(sp4-el): 45.7 ml LA A4 area: 16.3 cm2 LA dimension(2D): 3.5 cm RA A4 area: 10.5 cm2 Time Measurements MV dec time: 0.37 sec Doppler Measurements & Calculations MV E max braulio: 41.2 cm/sec Lat Peak E' Braulio: 7.5 cm/sec Med Peak E' Braulio: 7.8 cm/sec MV A max braulio: 69.8 cm/sec E/E' lat: 5.5 E/E' med: 5.3 MV E/A: 0.59 MV V2 max: 79.2 cm/sec Ao V2 max: 111.1 cm/sec MV max P.5 mmHg MV dec slope: 112.9 cm/sec2 Ao max P.9 mmHg MV V2 mean: 46.1 cm/sec Ao V2 mean: 76.5 cm/sec MV mean P.94 mmHg Ao mean P.7 mmHg MV V2 VTI: 21.9 cm Ao V2 VTI: 23.7 cm AV (velocity ratio): 0.79 LV V1 max: 76.2 cm/sec PA V2 max: 95.9 cm/sec TR max braulio: 194.3 cm/sec LV V1 max P.3 mmHg PA V2 mean: 66.2 cm/sec TR max P.1 mmHg LV V1 mean P.3 mmHg LV V1 mean: 55.0 cm/sec LV V1 VTI: 18.8 cm ECHO/Echo Complete Interpretation Summary Normal LV size. Left ventricular systolic function is normal. The estimated ejection fraction is 70 %. Mild (1+) eccentric mitral valve insufficiency. Ordering Physician: Mick Kam Referring Physician: Mick Kam Performed By: Miranda Cevallos RCS
== END | disposition home or self-care (01) ==
LOC: CVS 12:26
PROVIDERS: PCP Internal Medicine; Referring Provider Internal Medicine Cardiovascular Disease; Visit Provider Internal Medicine Cardiovascular Disease
DX: R06.02 Shortness of breath (principal)
CPT/HCPCS: 93306

== ENCOUNTER → 2023-03-01 | Outpatient (CLI) | payer MEDICARE, SELFPAY ==
--- NOTE | 2023-03-01 11:20 | BI_ITS ---
MAMMOGRAPHY - BILATERAL SCREENING REASON FOR EXAM: Female, 72 years old. Routine annual screening examination. PERTINENT HISTORY: Non-contributory. TECHNIQUE: Digital bilateral breast kike (3D mammographic acquisition) in the CC and MLO projections. 2-D mediolateral oblique (MLO) and craniocaudad (CC) views of both breasts were obtained. CAD: Full Field Digital Mammography with Computer Added Detection was performed. COMPARISON: Comparison is made with prior studies of April 02, 2022 and January 20, 2021. FINDINGS: Breast Composition: There are scattered areas of fibroglandular density. There are no dominant masses or suspicious calcifications. Stable 5 mm well-defined nodule in the upper outer aspect of the left breast most likely representing a small lymph node. Stable small benign-appearing bilateral axillary lymph nodes. No other significant abnormalities are identified. There has been no significant change since the prior study. BI/SCRN MAMM (CAD)W/KIKE BILAT IMPRESSION: Stable bilateral screening mammogram. Yearly follow-up mammogram recommended. (A) ASSESSMENT CATEGORY: BIRADS Category 2: Benign. A letter regarding these results will be sent to the patient by the facility within 30 days. Approximately 10% of breast cancers are not detected by mammography. A normal mammogram should not delay biopsy of a clinically suspicious abnormality. [id number] Electronically Signed: Victoriano Cordoba MD at 13:44 EDT ,
--- NOTE | 2023-03-01 11:48 | BD_ITS ---
STUDY: DUAL ENERGY X-RAY ABSORPTIOMETRY / DXA REASON FOR EXAM: Female, 72 years old. Z78.0 TECHNIQUE: Bone Mineral Density (BMD) measurements of lumbar spine and bilateral hips were obtained. COMPARISON: Comparison is made with prior study dated November 27, 2018. FINDINGS: Lumbar Spine (L1-L4): g/cm2 (0.848) / T-score (-1.2) / Z-score (1.0) Findings are suggestive of osteopenia with a low fracture risk. Left Femur Total: g/cm2 (0.634) / T-score (-2.5) / Z-score (-0.8) Left Femoral Neck: g/cm2 (0.500) / T-score (-3.1) / Z-score (-1.2) Right Femur Total: g/cm2 (0.645) / T-score (-2.4) / Z-score (-0.8) Right Femoral Neck: g/cm2 (0.496) / T-score (-3.2) / Z-score (-1.2) The T-Scores on the most recent prior examination were: Lumbar Spine (L1-L4): There has been worsening of bone density since the previous examination. Left Femur Total: which represents a worsening of 5.9%. Right Femur Total: which represents a worsening of 8.4%. BD/Dexa Bone Density Study IMPRESSION: The patient is considered osteoporotic as outlined below according to World Clive Organization (WHO) criteria with a high fracture risk. There has been worsening of bone density since the previous examination. Reference Information: The T-score is the number of standard deviations above or below the standard which is normal for young adults at their peak bone mineral density. The World Health Organization (WHO) interprets the T-scores as follows: Above -1 Normal bone density Between -1 and -2.5 Osteopenia Equal to / or below -2.5 Osteoporosis As a practical clinical guideline, osteopenia may be graded as follows: Mild -1 through -1.5 Moderate -1.6 through -2.0 Severe -2.1 through -2.4 The Z-score is the number of standard deviations above or below age-matched controls. A Z-score of less than -1.5 would be considered abnormal. References: 1. NIH Osteoporosis and Related Bone Diseases www osteo.org 2. International Society for Clinical Densitometry www iscd.org 3. National Osteoporosis Foundation www nof.org Electronically Signed: Victoriano Cordoba MD at 12:11 EDT ,
== END | disposition home or self-care (01) ==
PROVIDERS: PCP Internal Medicine; Referring Provider Internal Medicine; Visit Provider Internal Medicine
DX: Z12.31 Encounter for screening mammogram for malignant neoplasm of breast (principal); Z78.0 Asymptomatic menopausal state
CPT/HCPCS: 77063; 77067; 77080

== ENCOUNTER → 2023-03-25 | Outpatient (CLI) | payer MEDICARE, SELFPAY ==
--- NOTE | 2023-03-25 08:47 | MRI_ITS ---
STUDY: MRI LUMBAR SPINE WITHOUT CONTRAST REASON FOR EXAM: Female, 72 years old. DDD, RADICULOPATHY TECHNIQUE: Standardized fat and water weighted pulse sequences were obtained in the sagittal and axial planes. COMPARISON: None FINDINGS: T12-L1: Normal endplates. Normal disc height, hydration and morphology. Normal bilateral facet joints. Normal central canal and bilateral lateral recesses. Normal bilateral intervertebral neural foramina. Normal lumbar lordosis. There is no substantial scoliosis. Normal conus medullaris that terminates at the L1-2: Grade 1 retrolisthesis Degenerative endplate changes. Narrowed disc space with desiccation of the disc and mild bulging disc osteophyte complex. Mild facet arthropathy.. Mild narrowing of central canal. Moderate bilateral recess and neural foraminal stenosis. L2-3: Normal endplates. Normal disc height, desiccation and minimal annular bulge with small foraminal disc protrusions... Facet arthropathy and thickening of ligamenta flava Normal central canal and bilateral lateral recesses. Moderate right neural foraminal stenosis and mild to moderate narrowing on the left L3-4: Degenerative endplate changes.. Narrowed disc space and mild bulging annulus. Facet arthropathy and thickening of ligamenta flava. Mild to moderate narrowing of the central canal. Moderate bilateral lateral recess. Moderate right neural foraminal stenosis and more severe narrowing on the left L4-5: Status post bilateral laminectomy Normal endplates. Normal disc height, desiccation and minor annular bulge.. Facet arthropathy slightly worse on the right.. Normal central canal and bilateral lateral recesses. Mild left neural foraminal stenosis and moderate narrowing on the right L5-S1: Normal endplates. Normal disc height, desiccation mild annular bulge. Facet arthropathy and thickening of ligamenta flava. Mild narrowing of the central canal. Moderate bilateral lateral recess stenosis and severe neural foraminal stenosis exaggerated by shortened pedicles. Normal visualized sacral ala. Normal visualized paraspinous soft tissue structures. MRI/Spine Lumbar (Routine) IMPRESSION: No evidence for acute fracture or other significant bony pathology.. Postsurgical changes at L3-4 and L4-5 Multilevel spinal stenosis secondary to disc disease and bony hypertrophy most severe in the left at L3-4 Electronically Signed: Guy Lorenzo MD at 21:00 EST Reading Location ID and State: [facility] / [place] Tel , Service support ,
== END | disposition home or self-care (01) ==
PROVIDERS: PCP Internal Medicine; Referring Provider Anesthesiology Pain Medicine; Visit Provider Anesthesiology Pain Medicine
DX: M51.37 Other intervertebral disc degeneration, lumbosacral region (principal); M51.17 Intervertebral disc disorders with radiculopathy, lumbosacral region
CPT/HCPCS: 72148

== ENCOUNTER 2023-11-13 07:24 | Day surgery (SDC) | payer MEDICARE, SELFPAY ==
[2023-11-13 07:39] VITALS: BP 155/79; PULSE 84; RESP 18; TEMP 36.5; O2SAT 99; BMI 27.3
--- NOTE | 2023-11-13 07:40 | PCM.PRE.AN2 ---
ASA Classification* ASA Classification ASA Classification: 2 and 3 Assessment & Plan Anesthesia* Anesthesia Assessment Anesthesia Assessment: Discussed sedation and/or anesthesia options, risks, benefits, and alternatives with patient/parents/legal guardian/POA. Questions invited. The patient/parents/legal guardian/POA seems to understand and agrees to proceed with anesthesia plan. Reviewed the physical assessment, medical history, allergy history and patient home medications list prior to surgery/procedure/anesthetic and documented any changes. Performed airway and anesthesia risk assessments. Anesthesia Type Anesthesia Type: MAC (see written pre anesthesia record for complete assessment) Anesthesia Focused Assessment* Airway Assessment Mouth opens: >3 cm Mallampati Score: II Focused Labs Anesthesia Preop lab: CBC WBC 3.9 K/mm3 (4.4-11.0) L 03/07/22 03:38 RBC 4.51 M/mm3 (4.2-5.4) 03/07/22 03:38 Hgb 14.7 g/dL (12.0-15.0) 03/07/22 03:38 Hct 42.2 % (37-47) 03/07/22 03:38 Plt Count 226 K/mm3 (150-450) 03/07/22 03:38 CHEMISTRY Potassium 4.5 mmol/L (3.5-5.1) 03/07/22 03:38 Sodium 135 mmol/L (136-145) L 03/07/22 03:38 Magnesium 1.7 mg/dL (1.6-2.6) 09/02/20 12:40 BUN 13 mg/dL (7-18) 03/07/22 03:38 Creatinine 0.82 mg/dL (0.55-1.02) 03/07/22 03:38 Glucose 128 mg/dL (74-106) H 03/07/22 03:38 POC Glucose 173 mg/dL (70-110) H 09/10/20 12:11 TSH 1.75 uIU/mL (0.358-3.74) 09/02/20 12:40 COAG Pre-Assessment Diagnosis/Proposed Procedure Planned Operative Procedure(s): EGD Anesthesia History 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 When Was Last Pacemaker Check QUESTION #4 FULL TEXT: You/Your Family Experience fever (hyperthermia) with Anesthesia Last Oral Intake Last Oral intake: Last Oral Intake NPO since Meds taken in AM with sips of water? Meds patient instructed to take am of surgery PONV PONV - maintenance construction helper: PONV - maintenance construction helper Female Yes 11/06/23 14:34 HX of Motion Sickness Yes 11/06/23 14:34 HX of N/V After Surgery Yes 11/06/23 14:34 Non-Smoker Yes 11/06/23 14:34 Duration of Surgery greater No 11/06/23 14:34 than 60 minutes Number of Risk Factors 4 11/06/23 14:34 PONV Score Severe Risk 11/06/23 14:34 Height & Weight Height & Weight: Anesthesia: Height & Weight Height 5 ft 2 in 09/26/23 13:54 Respiratory Assessment Respiratory Assessment - maintenance construction helper: Respiratory Tract Infection Hx - maintenance construction helper Hx Respiratory Tract Infection No 11/06/23 14:34 STOP Sleep Apnea STOP Sleep Apnea - maintenance construction helper: STOP Sleep Apnea - maintenance construction helper Hx Hypertension Yes 11/06/23 14:34 Hx Sleep Apnea No 11/06/23 14:34 CPAP BIPAP Do you snore loudly (louder No 11/06/23 14:34 than talking or can be heard Do you often feel tired/ No 11/06/23 14:34 fatigued/ sleepy during daytime? Has anyone observed you stop No 11/06/23 14:34 breathing during sleep? STOP Results Negative 11/06/23 14:34 QUESTION #5 FULL TEXT : Do you snore loudly (louder than talking or can be heard through closed doors)? 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 Specify any problems Hx of Preganancy in last 3 No 11/06/23 14:34 Months Nurse Filling Out Transfusion MGRIFFITH 11/06/23 14:34 & Questions: Date: 11/06/23 11/06/23 14:34 Time: 14:36 11/06/23 14:34 Patient unable to answer at this time (ie. confused, unrespo /Reproduction History /Reproductive History - maintenance construction helper: /Reproductive Hx- maintenance construction helper Hx Now Gestational Age (in weeks): EDC: Hx Hx Para Hx Section SAB Active Medications Active Medications: Current Medications Generic Name Dose Route Start Last Admin Trade Name Freq PRN Reason Stop Dose Admin Lactated Ringer's 1,000 mls @ 15 mls/hr 11/13/23 07:45 IV .Q48H MINO PFSH Medical History Post-menopausal Alcohol use Thyroid disease Back pain Former smoker Leg cramps History of echocardiogram Cardiology follow-up encounter Carotid artery disease COVID-19 (~03/06/22) Obesity Psychophysiologic insomnia Anxiety Essential (primary) hypertension Trigger finger, left ring finger Vitamin D deficiency Esophageal reflux Hyperlipidemia IBS (irritable bowel syndrome) Diffuse cystic mastopathy Generalized osteoarthritis Diarrhea due to COVID-19 Hypothyroidism (acquired) Strain of right forearm Strain of right wrist Strain of right hand Spinal stenosis of lumbosacral region Depression H/O radioactive iodine thyroid ablation Home Medications ?Medication ?Instructions ?Recorded ?Last Taken ?Type trazodone 100 mg tablet 100 mg PO QHS insomnia 08/17/20 Unknown History dicyclomine 10 mg capsule 10 mg PO 4X/DAY PRN abdominal pain 03/28/22 Unknown History hydrochlorothiazide 50 mg tablet 50 mg PO DAILY 03/28/22 Unknown History lorazepam 0.5 mg tablet 0.5 mg PO QHS PRN sleep 03/28/22 Unknown History omeprazole 40 mg capsule,delayed 40 mg PO BID 03/28/22 Unknown History release bupropion HCl 300 mg 24 hr tablet, 300 mg PO DAILY anxiety 04/11/22 Unknown History extended release cholecalciferol (vitamin D3) 50 4,000 unit PO DAILY supplement 04/11/22 Unknown History mcg (2,000 unit) tablet biotin 10,000 mcg capsule 5,000 mcg PO DAILY 11/06/23 Unknown History cyanocobalamin (B12)-cobamamide 1 rob sublingual DAILY 11/06/23 Unknown History 5,000 mcg-100 mcg sublingual lozenge (B12) levothyroxine 50 mcg capsule 100 mcg PO TUFR 11/06/23 Unknown History levothyroxine 50 mcg tablet 50 mcg PO SUMOWETHSA 11/06/23 Unknown History Allergy/AdvReac Type Severity Reaction Status Date / Time sulfabenzamide Allergy Unknown red mouth Verified 11/13/23 07:38 nizatidine (From Axid) Allergy Hives Verified 11/13/23 07:38 Sulfa (Sulfonamide Allergy Rash, oral Verified 11/13/23 07:38 Antibiotics) redness atorvastatin AdvReac Intermediate Other Verified 11/13/23 07:38 duloxetine (From Cymbalta) AdvReac Intermediate Other Verified 11/13/23 07:38 lisinopril AdvReac Intermediate Other Verified 11/13/23 07:38 sibutramine (From Meridia) AdvReac Intermediate Rash Verified 11/13/23 07:38 losartan AdvReac Mild Other Verified 11/13/23 07:38 Family History Mother Arthritis Myocardial infarction Father Diabetes Heart disease Sister Brain bleed Surgical History History of radiofrequency ablation (RFA) of nerve of lumbar spine History of selective injection of anesthetic agent around lumbar nerve root History of lumbar surgery (~08/2020) History of esophagogastroduodenoscopy (EGD) (~02/27/20) History of colonoscopy History of tonsillectomy and adenoidectomy Hx of cataract removal with insertion of prosthetic lens (~2016) H/O dilation and curettage Social History household members: spouse housing: house Smoking Status: Former smoker how long ago did patient quit smokin years ago alcohol intake: current alcohol intake frequency: a few times a week substance use type: does not use caffeine: Yes Type: coffee Number of servings: 1 what type of physical activity do you participate in: walking, bicycling and other details: Cory do you feel safe at home: Yes Review of Systems (Anesthesia) ROS Narrative System reviewed and no additional complaints, except as documented.
[2023-11-13] MEDS: Lactated Ringers 1,000 ML 15 ML IV (07:43)
--- NOTE | 2023-11-13 08:59 | HP.PCM_ITS ---
HPI - General General Date of Service: 11/13/23 HPI Narrative DAMIEN ROBERT, is a 72 F who presents for an EGD due to reflux. Patient has been taking omeprazole 40 mg p.o. daily states she still gets occasional pressure in her esophagus. Otherwise denies any changes. office visit 09/26/23 HPI HPI: 72-year-old female presents due to reflux. Patient states that she feels like globus sensation in her throat patient has been dealing with a cough over the winter possible sinus issues. Patient does have an appoint with Dr. Tolentino tomorrow as well. Patient has been taking omeprazole 20 mg 1 or 2 times daily. Patient states she gets epigastric discomfort and pressure in her esophagus maybe 4 times a week. Patient states that if she does eat certain foods she will get more of a burning sensation in her abdomen like alcohol which she rarely has. Patient had a colonoscopy by Dr. Ryan about 5 years ago that was negative per patient. Patient has bowel movements daily denies any blood. Patient does take MiraLAX as needed. Patient states she drinks plenty of water. [facility] Medical History Post-menopausal Alcohol use Thyroid disease Back pain Former smoker Leg cramps History of echocardiogram Cardiology follow-up encounter Carotid artery disease COVID-19 (~03/06/22) Obesity Psychophysiologic insomnia Anxiety Essential (primary) hypertension Trigger finger, left ring finger Vitamin D deficiency Esophageal reflux Hyperlipidemia IBS (irritable bowel syndrome) Diffuse cystic mastopathy Generalized osteoarthritis Diarrhea due to COVID-19 Hypothyroidism (acquired) Strain of right forearm Strain of right wrist Strain of right hand Spinal stenosis of lumbosacral region Depression H/O radioactive iodine thyroid ablation Home Medications ?Medication ?Instructions ?Recorded ?Last Taken ?Type trazodone 100 mg tablet 100 mg PO QHS insomnia 08/17/20 Unknown History dicyclomine 10 mg capsule 10 mg PO 4X/DAY PRN abdominal pain 03/28/22 Unknown History hydrochlorothiazide 50 mg tablet 50 mg PO DAILY 03/28/22 Unknown History lorazepam 0.5 mg tablet 0.5 mg PO QHS PRN sleep 03/28/22 Unknown History omeprazole 40 mg capsule,delayed 40 mg PO BID 03/28/22 Unknown History release bupropion HCl 300 mg 24 hr tablet, 300 mg PO DAILY anxiety 04/11/22 Unknown History extended release cholecalciferol (vitamin D3) 50 4,000 unit PO DAILY supplement 04/11/22 Unknown History mcg (2,000 unit) tablet biotin 10,000 mcg capsule 5,000 mcg PO DAILY 11/06/23 Unknown History cyanocobalamin (B12)-cobamamide 1 rob sublingual DAILY 11/06/23 Unknown History 5,000 mcg-100 mcg sublingual lozenge (B12) levothyroxine 50 mcg capsule 100 mcg PO TUFR 11/06/23 Unknown History levothyroxine 50 mcg tablet 50 mcg PO SUMOWETHSA 11/06/23 Unknown History Allergy/AdvReac Type Severity Reaction Status Date / Time sulfabenzamide Allergy Unknown red mouth Verified 11/13/23 07:38 nizatidine (From Axid) Allergy Hives Verified 11/13/23 07:38 Sulfa (Sulfonamide Allergy Rash, oral Verified 11/13/23 07:38 Antibiotics) redness atorvastatin AdvReac Intermediate Other Verified 11/13/23 07:38 duloxetine (From Cymbalta) AdvReac Intermediate Other Verified 11/13/23 07:38 lisinopril AdvReac Intermediate Other Verified 11/13/23 07:38 sibutramine (From Meridia) AdvReac Intermediate Rash Verified 11/13/23 07:38 losartan AdvReac Mild Other Verified 11/13/23 07:38 Family History Mother Arthritis Myocardial infarction Father Diabetes Heart disease Sister Brain bleed Surgical History History of radiofrequency ablation (RFA) of nerve of lumbar spine History of selective injection of anesthetic agent around lumbar nerve root History of lumbar surgery (~08/2020) History of esophagogastroduodenoscopy (EGD) (~02/27/20) History of colonoscopy History of tonsillectomy and adenoidectomy Hx of cataract removal with insertion of prosthetic lens (~2015) H/O dilation and curettage Social History household members: spouse housing: house Smoking Status: Former smoker how long ago did patient quit smokin years ago alcohol intake: current alcohol intake frequency: a few times a week substance use type: does not use caffeine: Yes Type: coffee Number of servings: 1 what type of physical activity do you participate in: walking, bicycling and other details: Cory do you feel safe at home: Yes Past Medical/Surgical History Planned Operation Planned Operative Procedure(s): EGD S.O.S: No Previous Hospitalizations/Surgeries HX Hospitalizations: No HX of Surgeries: D&C Tubal Pain injections to back EGD, colonoscopy 08/2020 laminectomy L4-5, L3-4 Any Problems With Anesthesia: No You/Your Family Experience Fever (Hyperthermia) With Anes: No Cholinesterase deficiency: No Cardiovascular Hx Chest Pain within Last 2 months: No Hx of Irregular Heartbeat and/or Afib: No Hx Heart Attack: No Hx Congestive Heart Failure: No Hx Rheumatic Fever: No Hx Hypertension: Yes Hx Internal Defibrillator: No Hx Pacemaker: No Hx Cardiac Catheterization: No Hx Cardiac Surgery/Stents/Etc.: No Hx Stress Test: Yes (>20yrs ago) Hx Pain in Legs when Walking/Leg Cramps: Yes Respiratory Chronic Cough: No HX of Shortness of Breath: No Hoarseness: No Hx Chronic Obstructive Pulmonary Disease (COPD): No Hx Asthma: No Hx Emphysema: No Hx Sleep Apnea: No Hx Respiratory Tract Infection/Cold (presently): No Do You Snore Loudly (louder than talking or can be heard): No Do You Often Feel Tired/ Fatigued/ Sleepy Dring Daytime?: No Has Anyone Observed You Stop Breathing During Sleep?: No Result (for STOP score): Negative Hx Smoking: No (quit 1986) Smoking Status: Former smoker Gastrointestinal Controlled With Meds: Yes Hx Gastrointestinal Disorders: No Hx Gastrointestinal Bleed: No Hx Ulcer: No Hx Hiatal Hernia: No Difficulty Chewing/Swallowing: Yes (narrowing of the esophagus) Special diet followed at home: No Hx Unplanned Weight Loss of 20#: Yes (>40lbs in 12 mos) HX Unplanned Weight Gain of 20#: No Neurological Hx Seizures: No HX Syncope/Blackout Spells/Unconsciousness: No Hx Transient Ischemic Attacks (TIA): No Hx Multiple Sclerosis: No Hx Parkinson's Disease: No Hx Head/Neck Injury: No Hx Headaches: No Hx Back Injury/Pain: Yes Recent Onset of Speech Difficulty: No Restless Legs: Yes Does patient have nerve stimulator: No Blood Disorder Hx Leukemia: No Bleeding Tendencies: No Hx Deep Vein Thrombosis: No Hx High Cholesterol: Yes Blood Transmitted Disease: No Hx Hepatitis: No Hx Cirrhosis: No Hx Anemia: No Hx Blood Disorders: No Reproduction Are You Post Menopause: Yes Genitourinary Hx Renal Disease: No Musculoskeletal Hx Arthritis: Yes Hx Rheumatoid Arthritis: No Hx Gout: No Recent Onset of an Orthopedic Problem: No Endocrine Hx Diabetes: No Thyroid Disease: Yes Hx Steroid Therapy: Yes (back injections) Psycho/Social Hx Substance Use: No Hx Alcohol Use: Yes (wine with supper) Hx Anxiety: Yes (controlled on meds) Hx Depression: Yes (controlled on meds) Mental Illness: No Miscellaneous Hx Cancer: No Recent Exposure to Contagious Disease: No Hx of C-Diff: No Any Loose Teeth: No Allergies sulfabenzamide Allergy (Unknown, Verified 11/13/23 07:38) red mouth nizatidine (From Axid) Allergy (Verified 11/13/23 07:38) Hives Sulfa (Sulfonamide Antibiotics) Allergy (Verified 11/13/23 07:38) Rash, oral redness atorvastatin Adverse Reaction (Intermediate, Verified 11/13/23 07:38) Other insomnia,headache,nausea duloxetine (From Cymbalta) Adverse Reaction (Intermediate, Verified 11/13/23 07:38) Other insomnia lisinopril Adverse Reaction (Intermediate, Verified 11/13/23 07:38) Other cough with vomiting sibutramine (From Meridia) Adverse Reaction (Intermediate, Verified 11/13/23 07:38) Rash losartan Adverse Reaction (Mild, Verified 11/13/23 07:38) Other cough Discharge Is Pt Admitted From a Penitentiary, or a Retirement: No Who Could Help: After D/C, Where Do you Plan to Go: Return Home From the [facility] History Number of Risk Factors: 7 Vital Signs Vital Signs Vital Signs: 11/13/23 07:39 11/13/23 07:39 Temperature 97.7 F L Temperature Source Temporal Pulse Rate 84 Respiratory Rate 18 Respiratory Pattern Normal Blood Pressure 155/79 H Blood Pressure Mean 104 Blood Pressure Source Monitor Blood Pressure Position Semi-Fowlers Pulse Ox 99 Oxygen Delivery Method Room Air Weight Weight: 149 lb 14.629 oz Body Mass Index (BMI) 27.3 Physical Exam Const alert, oriented x3 and no apparent distress HEENT normocephalic and head/scalp atraumatic Resp normal respiratory effort Cardio regular rate GI soft to palpation and non-tender; Negative for non-distended Palpation: Negative for guarding Extremity no clubbing, cyanosis or edema Skin no rashes or lesions noted Neuro CN's II-XII intact bilaterally Psych mental status grossly normal Assessment & Plan Assessment/Plan (1) Esophageal reflux: Surgery Risks - Colonoscopy Risks Include but are not Limited To: Plan for an EGD Risks include but are not limited to: Bleeding, perforation requiring further surgery
--- NOTE | 2023-11-13 09:10 | IMM_PTH ---
PATIENT: DAMIEN ROBERT LOC: EN U#:[id number] AGE/SX: 72/F ROOM: RE11/13/[address]: Dr. Josie Paris MD : 1950 BED: DIS: 11/13/2023 SPEC #: [id number] RECD: 11/13/23 12:08 STATUS: ALLEN REQ #: [id number] YAIR: 11/13/23 09:[address]: Josie Paris DEPT: IMMUNOHISTOCHEMISTRY RECD BY: Luiz Jackson ENTERED: 11/13/23 12:08 SP TYPE: IMMUNO OTHR DR: Dr. Cori Brown MD Tissues: A - Gastric mucous membrane Procedures: H Pylori (initial) PHYSICIAN & INSTITUTION [place] [address] SPECIMEN INFORMATION: Tissue Source: A- Gastric antrum Clinical Info: Esophageal reflux Specimen Number: [id number] CPT code: 59239 METHODOLOGY: Deparaffinized sections of prefer/formalin-fixed tissue or PAP/DQ stained slides are incubated with monoclonal/polyclonal antibodies/oligonucleotide probes. Localization is made via biotin free immunoperoxidase method. Appropriate controls are performed and reacted as expected. Results on target cell population are indicated in the following table: RESULTS: ANTIBODY / CLONE RESULT Block A H Pylori (polyclonal) negative These tests were developed and their performance characteristics determined by [facility]. They may not have been cleared or approved by the U.S. Food and Drug Administration. The FDA has determined that such clearance or approval is not necessary. The above immunohistochemical/dualISH markers are ordered and reviewed by the Pathologist. INTERPRETATION: A. Gastric antrum, biopsy: Negative for Helicobacter pylori organisms. SELMA/ 11/14/2023
--- NOTE | 2023-11-13 09:15 | EGD_PTH ---
PATIENT: DAMIEN ROBERT LOC: EN U#:[id number] AGE/SX: 72/F ROOM: RE11/13/[address]: Dr. Josie Paris MD : 1950 BED: DIS: 11/13/2023 SPEC #: [id number] RECD: 11/13/23 10:08 STATUS: ALLEN GERMÁN #: [id number] YAIR: 11/13/23 09:[address]: Josie Paris DEPT: SURGICAL PATHOLOGY RECD BY: Minal Burris ENTERED: 11/13/23 11:20 SP TYPE: EGD BIOPSY BETTY DR: Dr. Cori Brown MD Tissues: A - Gastric mucous membrane B - Gastric mucous membrane Procedures: Surgery Specimen Level IV HEADER OPERATION: EGD, biopsy, polypectomy PRE-OP DIAGNOSIS: Esophageal reflux TISSUE SUBMITTED: A- Gastric antrum, B- Gastric polyp x2 MICROSCOPIC DIAGNOSIS A. Gastric antrum, biopsy: Mild gastritis. See microscopic description and comment. B. Gastric polyp x2, polypectomy: Fundic gland polyps x2. SJ/mr 11/14/2023 COMMENT A. The results of immunohistochemistry for Helicobacter pylori will be reported separately ([id number]). MICROSCOPIC DESCRIPTION Slides are reviewed. A. The specimen shows fragments of gastric mucosa with chronic inflammatory cell infiltrates in the lamina propria consisting of lymphocytes and plasma cells, consistent with mild chronic gastritis. GROSS DESCRIPTION A. Received in fixative is one container labeled with the patient's name and designated Gastric antrum biopsy. The specimen consists of one irregular fragment of light garcia soft tissue that measures 0.3 x 0.3 x 0.1 cm. The specimen is totally submitted in one cassette. B. Received in fixative is one container labeled with the patient's name and designated Gastric polyp biopsy x2. The specimen consists of two garcia-pink polyps measuring 0.6 x 0.5 x 0.2cm and 1.0 x 0.6 x 0.4cm. Larger polyp is bisected. The entire specimen is submitted in one cassette. SJ/mr 11/13/2023 TC:5 CPT:53016a1
[2023-11-13 09:25] VITALS: BP 105/48; BP 155/79; PULSE 71; RESP 18; TEMP 36.3; O2SAT 97
--- NOTE | 2023-11-13 09:26 | OP.EGD_ITS ---
Patient Name: Amina Tobar Procedure Date: 11/13/2023 8:59 AM Date of : 1950 Age: 72 Procedure: Upper GI endoscopy Indications: Heartburn Providers: Josie Paris MD Referring MD: Cori Brown Medicines: Monitored Anesthesia Care Patient Profile: This is a 72 year old female. Complications: No immediate complications. Procedure: Pre-Anesthesia Assessment: - Prior to the procedure, a History and Physical was performed, and patient medications and allergies were reviewed. The patient's tolerance of previous anesthesia was also reviewed. The risks and benefits of the procedure and the sedation options and risks were discussed with the patient. All questions were answered, and informed consent was obtained. Prior Anticoagulants: The patient has taken no anticoagulant or antiplatelet agents. ASA Grade Assessment: Per anesthesia. After reviewing the risks and benefits, the patient was deemed in satisfactory condition to undergo the procedure. After obtaining informed consent, the endoscope was passed under direct vision. Throughout the procedure, the patient's blood pressure, pulse, and oxygen saturations were monitored continuously. The Endoscope was introduced through the mouth, and advanced to the second part of duodenum. The upper GI endoscopy was accomplished without difficulty. The patient tolerated the procedure well. Scope In: 9:10:29 AM Scope Out: 9:18:39 AM Total Procedure Duration Time 0 hours 8 minutes 10 seconds Findings: The Z-line was regular and was found 37 cm from the incisors. The examined duodenum was normal. Mildly erythematous mucosa without bleeding was found in the gastric antrum. Biopsies were taken with a cold forceps for histology. Biopsies were taken with a cold forceps for Helicobacter pylori cultures. Two less than 5 mm semi-pedunculated polyps with no bleeding and no stigmata of recent bleeding were found in the gastric body. The polyp was removed with a hot snare. Resection and retrieval were complete using a Jamil net. [Clip Device]. The cardia and gastric fundus were normal on retroflexion. Impression: - Z-line regular, 37 cm from the incisors. - Normal examined duodenum. - Erythematous mucosa in the antrum. Biopsied. - Two gastric polyps. Resected and retrieved. Recommendation: - Discharge patient to home. - Resume previous diet. - Continue present medications. - Await pathology results. - Use sucralfate tablets 1 gram PO QID for 2 weeks. Procedure Code(s): --- Professional --- 71624, Esophagogastroduodenoscopy, flexible, transoral; with removal of tumor(s), polyp(s), or other lesion(s) by snare technique 28122, 59, Esophagogastroduodenoscopy, flexible, transoral; with biopsy, single or multiple Diagnosis Code(s): --- Professional --- K31.89, Other diseases of stomach and duodenum K31.7, Polyp of stomach and duodenum R12, Heartburn CPT copyright 2021 [employer]. All rights reserved. The codes documented in this report are preliminary and upon medical biller coder review may be revised to meet current compliance requirements. MD Jsoie Lopez MD 11/13/2023 9:25:28 AM This report has been signed electronically. Number of Addenda: 0 Note Initiated On: 11/13/2023 8:59 AM
--- NOTE | 2023-11-13 09:26 | OP.CCLET_ITS ---
11/13/2023 Cori Brown [address] [place] [address] Re : Upper GI endoscopy procedure for Amina Tobar Dear Dr. Brown This procedure was performed on Monday, November 13, 2023. My impressions and recommendations are as follows: Impressions : - Z-line regular, 37 cm from the incisors. - Normal examined duodenum. - Erythematous mucosa in the antrum. Biopsied. - Two gastric polyps. Resected and retrieved. Recommendations : - Discharge patient to home. - Resume previous diet. - Continue present medications. - Await pathology results. - Use sucralfate tablets 1 gram PO QID for 2 weeks. My findings are described in the full procedure note, which is enclosed. If I can be of further assistance, please feel free to contact me at Doctor phone number(s): , Work: . Sincerely, MD Josie Lopez MD 11/13/2023 9:25:28 AM This report has been signed electronically.
--- NOTE | 2023-11-13 09:29 | PCM.POST.ANE ---
Anesthesia: Postop Eval I Current Vital Signs Temperature: 97.3 F Pulse Rate: 72 Blood Pressure: 105/48 Respiratory Rate: 16 Pulse Ox: 97 Oxygen Delivery Method: Room Air Assessment Airway patent: Yes Spontaneous unlabored respirations: Yes Mental status: Awake and Calm nausea: No Vomiting: No Anesthesia Complication: No Fluid Hydration Crystalloid volume administer (ml): 400 Total IV fluid infused: 400 Progress Note Anesthesia document: Postop Eval 1 completed: Yes
[2023-11-13 09:30] VITALS: BP 105/48; BP 155/79; BP 90/50; PULSE 70; PULSE 72; RESP 16; TEMP 36.3; O2SAT 100; O2SAT 97
[2023-11-13 09:35] VITALS: BP 155/79; BP 97/68; PULSE 69; RESP 18; O2SAT 100
--- NOTE | 2023-11-13 09:35 | PCM.POSTANE2 ---
Anesthesia Postop Eval I Sum Postop Eval Completion status Anesthesia document: Postop Eval 1 completed: Yes Anesthesia Postop Eval I Summary Anesthesia Postop Eval I Summary: Anesthesia Postop Eval I: Assessment Summary Airway patent Yes 11/13/23 09:30 [email or web address] Spontaneous unlabored Yes 11/13/23 09:30 [email or web address] respirations Mental status Awake,Calm 11/13/23 09:30 [email or web address] nausea No 11/13/23 09:30 [email or web address] Vomiting No 11/13/23 09:30 [email or web address] Anesthesia Postop Eval I: Fluid Summary Crystalloid volume administer 400 11/13/23 09:30 [email or web address] (ml) Colloids volume administered ( ml) Blood Product volume administered (ml) Total IV fluid infused 400 11/13/23 09:30 [email or web address] Anesthesia Postop Eval I: Summary Notes Anesthesia Complication No 11/13/23 09:30 [email or web address] Anesthesia Complication Comment: Post-operative progress note Anesthesia: Postop Eval II Evaluation Mental status: Awake Pain Level: 0 nausea: No Vomiting: No
[2023-11-13 09:40] VITALS: BP 106/54; BP 155/79; PULSE 62; RESP 18; TEMP 36.2; O2SAT 100
[2023-11-13 09:54] VITALS: BP 155/79
== END 2023-11-13 09:57 | disposition home or self-care (01) ==
LOC: EN 07:24 → AC 07:25
PROVIDERS: PCP Internal Medicine; Referring Provider Internal Medicine; Visit Provider Surgery
PROC: 0DJ08ZZ Inspection of Upper Intestinal Tract, Via Natural or Artificial Opening Endoscopic (ICD-10-PCS; CPT 43235; principal; 2023-11-13 09:10)
DX: K21.9 Gastro-esophageal reflux disease without esophagitis (principal); I10 Essential (primary) hypertension; E78.5 Hyperlipidemia, unspecified; Z87.891 Personal history of nicotine dependence; Z79.899 Other long term (current) drug therapy; F41.9 Anxiety disorder, unspecified; K31.89 Other diseases of stomach and duodenum; K31.7 Polyp of stomach and duodenum; K29.70 Gastritis, unspecified, without bleeding
CPT/HCPCS: 43251; 43239; 88305; 88342; J7120; J2405

== ENCOUNTER 2024-03-02 09:21 | Inpatient (IN) | payer MEDICARE, SELFPAY ==
[2024-03-02] VITALS (12 sets, daily range): BP systolic 148–192; BP diastolic 70–95; PULSE 66–86; RESP 14–18; TEMP 36.3–36.8; O2SAT 98–100; BMI 29.2; BMI 29.0
--- NOTE | 2024-03-02 10:13 | ED.VIS.CHEST ---
HPI History of Present Illness Chief Complaint: Chest Pain Narrative Narrative: Chief complaint and HPI: Exertional chest pain. 73-year-old female with history of carotid artery disease, hypothyroidism, HLD, HTN presents for evaluation of exertional chest pain. Patient states she went on a walk on Monday in which she developed chest tightness that radiated to her throat as well as shortness of breath. She states that it resolved with rest. She states since then she has been getting this intermittently when she exerts herself such as walking up the steps. She states she has tried omeprazole and aspirin. Patient states she woke up this morning in which she walked down the stairs. She states when she walked back up the stairs she developed the symptoms again which brought her for further evaluation. She denies any fever, chills, URI symptoms, abdominal pain, nausea, vomiting. Denies any bilateral lower extremity swelling or pain. She does state that her TSH was off a couple weeks ago and her Synthroid was increased. On chart review, I was able to see a cardiology note. She had a carotid ultrasound study that demonstrated 60 to 79% stenosis noted in her right internal carotid artery and 20 to 30% stenosis noted in the left internal carotid artery. She follows with vascular in [place]. Her echocardiogram from April 2022 demonstrated ejection fraction of 70%. She did undergo a coronary calcium score in July 2022 with a total score of 15. Patient states she has not had a stress test in years. Review of systems: See HPI Medications: As listed on the chart Allergies: As listed on the chart PFSH: Per chart Vital signs: As listed on the chart. Reviewed. Physical exam: Gen: A&O x3, NAD Head: Normocephalic, atraumatic Eyes: No sclera icterus, conjunctiva clear ENT: Moist mucous membranes Neck: Trachea midline, No JVD, no audible carotid bruit CV: RRR, no murmurs, no peripheral edema Resp: Lungs CTA BL, no w/r/c GI: Abd soft, non-distended, non-tender, no r/r/g Musc: Full ROM, no deformity Skin: Warm, dry Neuro: Alert, oriented, grossly intact, sensation intact Psych: Cooperative, appropriate mood and affect [facility] Medical History Post-menopausal Alcohol use Thyroid disease Back pain Former smoker Leg cramps History of echocardiogram Cardiology follow-up encounter Carotid artery disease COVID-19 (~03/06/22) Obesity Psychophysiologic insomnia Anxiety Essential (primary) hypertension Trigger finger, left ring finger Vitamin D deficiency Esophageal reflux Hyperlipidemia IBS (irritable bowel syndrome) Diffuse cystic mastopathy Generalized osteoarthritis Diarrhea due to COVID-19 Hypothyroidism (acquired) Strain of right forearm Strain of right wrist Strain of right hand Spinal stenosis of lumbosacral region Depression H/O radioactive iodine thyroid ablation Home Medications ?Medication ?Instructions ?Recorded ?Last Taken ?Type trazodone 100 mg tablet 100 mg PO QHS insomnia 08/17/20 Unknown History dicyclomine 10 mg capsule 10 mg PO 4X/DAY PRN abdominal pain 03/28/22 Unknown History hydrochlorothiazide 50 mg tablet 50 mg PO DAILY blood pressure 03/28/22 Unknown History lorazepam 0.5 mg tablet 0.5 mg PO QHS PRN sleep 03/28/22 Unknown History omeprazole 40 mg capsule,delayed 40 mg PO BID gut 03/28/22 Unknown History release bupropion HCl 300 mg 24 hr tablet, 300 mg PO DAILY anxiety 04/11/22 Unknown History extended release cholecalciferol (vitamin D3) 50 4,000 unit PO DAILY supplement 04/11/22 Unknown History mcg (2,000 unit) tablet biotin 10,000 mcg capsule 5,000 mcg PO DAILY hair 11/06/23 Unknown History cyanocobalamin (B12)-cobamamide 1 rob sublingual DAILY suppliment 11/06/23 Unknown History 5,000 mcg-100 mcg sublingual lozenge (B12) levothyroxine 75 mcg tablet 75 mcg PO DAILY thyroid 03/02/24 Unknown History meloxicam 15 mg tablet 15 mg PO DAILY inflimmation 03/02/24 Unknown History Allergy/AdvReac Type Severity Reaction Status Date / Time sulfabenzamide Allergy Unknown red mouth Verified 03/02/24 09:32 nizatidine (From Axid) Allergy Hives Verified 03/02/24 09:32 Sulfa (Sulfonamide Allergy Rash, oral Verified 03/02/24 09:32 Antibiotics) redness atorvastatin AdvReac Intermediate Other Verified 03/02/24 09:32 duloxetine (From Cymbalta) AdvReac Intermediate Other Verified 03/02/24 09:32 lisinopril AdvReac Intermediate Other Verified 03/02/24 09:32 sibutramine (From Meridia) AdvReac Intermediate Rash Verified 03/02/24 09:32 losartan AdvReac Mild Other Verified 03/02/24 09:32 Family History Mother Arthritis Myocardial infarction Father Diabetes Heart disease Sister Brain bleed Surgical History History of radiofrequency ablation (RFA) of nerve of lumbar spine History of selective injection of anesthetic agent around lumbar nerve root History of lumbar surgery (~08/2020) History of esophagogastroduodenoscopy (EGD) (~02/27/20) History of colonoscopy History of tonsillectomy and adenoidectomy Hx of cataract removal with insertion of prosthetic lens (~2015) H/O dilation and curettage Social History (Updated 03/02/24 @ 16:16 by Keisha Singer) household members: spouse housing: house Smoking Status: Former smoker how long ago did patient quit smokin years ago alcohol intake: current alcohol intake frequency: a few times a week substance use type: does not use caffeine: Yes Type: coffee Number of servings: 1 what type of physical activity do you participate in: walking, bicycling and other details: Cory do you feel safe at home: Yes EXAM Physical Exam Const Vital Signs: 03/02/24 09:22 03/02/24 09:29 03/02/24 10:14 Temperature 97.3 F L Temperature Source Oral Pulse Rate 86 Respiratory Rate 16 Respiratory Effort Normal Respiratory Pattern Normal Blood Pressure 192/95 H Blood Pressure Mean 127 Pulse Ox 98 99 Oxygen Delivery Method Room Air Room Air 03/02/24 10:22 03/02/24 11:46 03/02/24 12:00 Temperature Temperature Source Pulse Rate 66 75 71 Respiratory Rate 16 16 16 Respiratory Effort Respiratory Pattern Blood Pressure 184/84 H 167/79 H 148/77 H Blood Pressure Mean 117 108 100 Pulse Ox 98 99 99 Oxygen Delivery Method Room Air Room Air 03/02/24 13:30 Temperature 98.2 F Temperature Source Pulse Rate 76 Respiratory Rate 14 Respiratory Effort Respiratory Pattern Blood Pressure 164/88 H Blood Pressure Mean 113 Pulse Ox 98 Oxygen Delivery Method MDM MDM MDM Narrative Medical decision making narrative: 73-year-old female with history of carotid artery disease, HTN, HLD presents for the evaluation of exertional chest pain. Currently asymptomatic. Differential diagnosis includes but is not limited to unstable angina, ACS, CHF, arrhythmia, hypertension urgency, thyroid disease. Cardiac workup ordered. CBC with a mild leukocytosis of 11.6. No anemia. D-dimer unremarkable. BMP unremarkable without ZARI. BNP mildly elevated at 106.4. Patient has no overt physical findings of fluid overload. TSH is low at 0.319. Patient states this was low prior and was recently just increased on her Synthroid. Troponin 26 and 39. Magnesium level unremarkable. On reexamination, patient currently is not having chest pain however she states when she walked to the bathroom she developed some. Patient has a moderate heart score of 6. Given her exertional chest pain, concern is for angina and ACS. Patient has not had a recent stress test. Patient would benefit from admission for further cardiac workup. Patient was updated all her results and confirmed understanding of the plan. Patient was discussed with Dr. Rodgers, the hospitalist who accepted admission. EKG: Interpreted by me/EM physician: EKG shows normal sinus rhythm with PVCs. Nonspecific ST changes. Heart rate 76. No ST elevation. Diagnostic: Interpreted by me/EM physician: Chest x-ray without pneumonia, effusion, cardiomegaly, pneumothorax Impression: 1. Exertional chest pain 2. Hypothyroidism Lab Data Labs: Laboratory Results - last 24 hr 03/02/24 03/02/24 09:31 12:27 WBC 11.6 H RBC 4.53 Hgb 14.0 Hct 42.2 MCV 93.2 MCH 30.9 MCHC 33.2 RDW Std Deviation 44.0 H RDW Coeff of [place] 12.9 Plt Count 318 MPV 9.9 Immature Gran % (Auto) 0.400 Neut % (Auto) 75.9 H Lymph % (Auto) 18.1 L [place] % (Auto) 5.3 Eos % (Auto) 0.0 Baso % (Auto) 0.3 Absolute Neuts (auto) 8.8 H Absolute Lymphs (auto) 2.10 Nucleated RBC % 0 D-Dimer Quant (PE/DVT) 0.41 Sodium 138 Potassium 4.1 Chloride 107 Carbon Dioxide 29.0 Anion Gap 2 L BUN 14 Creatinine 0.85 Estim Creat Clear Calc 52.07 Est GFR (MDRD) Af Amer 84 Est GFR (MDRD) Non-Af 69 BUN/Creatinine Ratio 16.5 Glucose 139 H Calcium 9.2 Magnesium 2.1 1.9 Troponin I High Sens 26 39 B-Natriuretic Peptide 106.4 H TSH 0.319 L Radiography Diagnostic Testing: Clinical Impression(s) from Imaging Studies Chest X-Ray 03/02/24 10:32 IMPRESSION: No acute cardiopulmonary process identified. Electronically Signed: Nayana Monroe MD at 11:04 EDT , Discharge Plan Disposition Disposition: Acute Care Hospital [facility] Discharge Date/Time: 03/02/24 15:51
--- NOTE | 2024-03-02 10:14 | EKG12_ITS ---
Test Reason : CP Blood Pressure : / mmHG Vent. Rate : 076 BPM Atrial Rate : 076 BPM P-R Int : 144 ms QRS Dur : 078 ms QT Int : 388 ms P-R-T Axes : 062 019 050 degrees QTc Int : 436 ms Sinus rhythm with occasional Premature ventricular complexes Nonspecific ST abnormality Abnormal ECG Confirmed by Miquel Jarrell ([id number]), sound editor XOCHITL INMAN ([id number]) on 03/04/2024 11:25:25 AM Referred By: DINO Confirmed By:Miquel Jarrell
[2024-03-02 10:27] LABS: Absolute Neutrophil Count 8.8 X10^3/uL (2.0-7.7); Basophil# 0.03 X10^3/uL; Basophil% 0.3 % (0-1); Hematocrit 42.2 % (37-47); Lymphocyte % 18.1 % (19-41); Mean Corp Hgb Conc 33.2 g/dL (32-36); Mean Corpuscular Hgb 30.9 pg (27.0-32.0); Mean Corpuscular Volume 93.2 fL (81-99); Mean Platelet Vol. 9.9 fl (6.2-12.0); Monocyte# 0.62 X10^3/uL; Monocyte% 5.3 % (0-10); NRBC Flagged by Analyzer 0 % (0-5); Neutrophil # 8.79 X10^3/uL (2.7-7.7); Neutrophil % 75.9 % (47-70); Platelet Count 318 K/mm3 (150-450); RBC Distribution Width CV 12.9 % (11.6-14.6); Red Blood Count 4.53 M/mm3 (4.2-5.4); White Blood Count 11.6 K/mm3 (4.4-11.0)
[2024-03-02] MEDS: Aspirin 81 MG TAB.CHEW 324 MG PO (10:29)
--- NOTE | 2024-03-02 10:32 | RAD_ITS ---
HISTORY: chest pain. TECHNIQUE: XR Chest 1 View. COMPARISON: 04/25/2018. FINDINGS: CARDIOMEDIASTINAL BORDERS: Cardiac silhouette within normal limits in size. Mediastinal contour unremarkable. LUNGS: Radiographically clear. PLEURA: No pleural effusion or pneumothorax seen. OSSEOUS STRUCTURES: Spinal osteophytes present. RAD/Chest 1 View (Portable) IMPRESSION: No acute cardiopulmonary process identified. Electronically Signed: Nayana Monroe MD at 11:04 EDT ,
[2024-03-02 10:39] LABS: D-Dimer Quantitative (DVT/PE) 0.41 FEU/ug/m (0.27-0.49)
[2024-03-02 10:49] LABS: Anion Gap 2 (5-15); BUN 14 mg/dL (7-18); BUN/Creat Ratio 16.5 RATIO (10-20); Calcium,Total 9.2 mg/dL (8.5-10.1); Chloride 107 mmol/L (98-107); Creatinine, Serum 0.85 mg/dL (0.55-1.02); EST Glomerular Filtration Rate 69 mL/min (>60); Est Glom Filt Rate - Afr Amer 84 mL/min (>60); Estimated Creatinine Clearance 52.07 ml/min; Glucose 139 mg/dL (74-106); Magnesium 2.1 mg/dL (1.6-2.6); Potassium 4.1 mmol/L (3.5-5.1); Sodium Level 138 mmol/L (136-145); Thyroid Stim Hormone (TSH) 0.319 uIU/mL (0.358-3.740); Troponin-I HS (w/2H Reflex) 26 pg/mL (3.0-54.0)
[2024-03-02 10:51] LABS: BNP,B-Type NATRIURETIC PEPTIDE 106.4 pg/mL (0-100)
[2024-03-02 12:16] LABS: Reflex Troponin-HS? (from REC) Y
[2024-03-02 12:56] LABS: Troponin-I HS 39 pg/mL (3.0-54.0)
--- NOTE | 2024-03-02 15:23 | PCM.HP.STD ---
HPI - General General Date of Admission: 03/02/24 Date of Service: 03/02/24 Chief Complaint: Chest pain a squeezing-like sensation on exertion, unstable angina type HPI Narrative DAMIEN ROBERT, is a 73 F came to ED for 1 week symptoms of exertional chest pressure/squeezing sensation on walking along with shortness of breath. She denies any prior HI or cardiac stents but for last 1 week she gets chest pressure/squeezing sensation in the middle of chest with radiation to carotids along with shortness of breath. She also has 70% right ICA stenosis and supposed to see vascular surgeon as an outpatient. Patient has a history of 6-75-bmcz-old burning pain and is on PPI and had EGD by Dr. Melendrez on seven 06/07 Vitals, labs and imaging reviewed Twelve-lead EKG done which shows NSR with occasional PVC, 76 bpm, QTc 436 ms. First troponin normal. Patient further admitted [facility] Medical History Post-menopausal Alcohol use Thyroid disease Back pain Former smoker Leg cramps History of echocardiogram Cardiology follow-up encounter Carotid artery disease COVID-19 (~03/06/22) Obesity Psychophysiologic insomnia Anxiety Essential (primary) hypertension Trigger finger, left ring finger Vitamin D deficiency Esophageal reflux Hyperlipidemia IBS (irritable bowel syndrome) Diffuse cystic mastopathy Generalized osteoarthritis Diarrhea due to COVID-19 Hypothyroidism (acquired) Strain of right forearm Strain of right wrist Strain of right hand Spinal stenosis of lumbosacral region Depression H/O radioactive iodine thyroid ablation Home Medications ?Medication ?Instructions ?Recorded ?Last Taken ?Type trazodone 100 mg tablet 100 mg PO QHS insomnia 08/17/20 Unknown History dicyclomine 10 mg capsule 10 mg PO 4X/DAY PRN abdominal pain 03/28/22 Unknown History hydrochlorothiazide 50 mg tablet 50 mg PO DAILY 03/28/22 Unknown History lorazepam 0.5 mg tablet 0.5 mg PO QHS PRN sleep 03/28/22 Unknown History omeprazole 40 mg capsule,delayed 40 mg PO BID 03/28/22 Unknown History release bupropion HCl 300 mg 24 hr tablet, 300 mg PO DAILY anxiety 04/11/22 Unknown History extended release cholecalciferol (vitamin D3) 50 4,000 unit PO DAILY supplement 04/11/22 Unknown History mcg (2,000 unit) tablet biotin 10,000 mcg capsule 5,000 mcg PO DAILY 11/06/23 Unknown History cyanocobalamin (B12)-cobamamide 1 rob sublingual DAILY 11/06/23 Unknown History 5,000 mcg-100 mcg sublingual lozenge (B12) levothyroxine 75 mcg tablet 75 mcg PO DAILY 03/02/24 Unknown History meloxicam 15 mg tablet 15 mg PO DAILY 03/02/24 Unknown History Allergy/AdvReac Type Severity Reaction Status Date / Time sulfabenzamide Allergy Unknown red mouth Verified 03/02/24 09:32 nizatidine (From Axid) Allergy Hives Verified 03/02/24 09:32 Sulfa (Sulfonamide Allergy Rash, oral Verified 03/02/24 09:32 Antibiotics) redness atorvastatin AdvReac Intermediate Other Verified 03/02/24 09:32 duloxetine (From Cymbalta) AdvReac Intermediate Other Verified 03/02/24 09:32 lisinopril AdvReac Intermediate Other Verified 03/02/24 09:32 sibutramine (From Meridia) AdvReac Intermediate Rash Verified 03/02/24 09:32 losartan AdvReac Mild Other Verified 03/02/24 09:32 Family History Mother Arthritis Myocardial infarction Father Diabetes Heart disease Sister Brain bleed Surgical History History of radiofrequency ablation (RFA) of nerve of lumbar spine History of selective injection of anesthetic agent around lumbar nerve root History of lumbar surgery (~08/2020) History of esophagogastroduodenoscopy (EGD) (~02/27/20) History of colonoscopy History of tonsillectomy and adenoidectomy Hx of cataract removal with insertion of prosthetic lens (~2015) H/O dilation and curettage Social History household members: spouse housing: house Smoking Status: Former smoker how long ago did patient quit smokin years ago alcohol intake: current alcohol intake frequency: a few times a week substance use type: does not use caffeine: Yes Type: coffee Number of servings: 1 what type of physical activity do you participate in: walking, bicycling and other details: Cory do you feel safe at home: Yes ROS ROS Narrative Constitutional: Reports fatigue and weakness. No fever. HEENT: Reports systems reviewed and no addt'l complaints, except as documented Respiratory/Chest: Dyspnea on exertion. Ex-smoker. Denies chronic lung disease. CVS: As described in HPI Gastrointestinal: Hiatus hernia and GERD. Denies coffee ground emesis, hematemesis or vomiting Genitourinary: Denies burning urination or new urinary tract symptoms Musculoskeletal: Denies acute joint pain or limited range of motion. No acute injury Neurologic: Denies seizure-like symptoms. skin: No ulcer. No rash Endocrinology: Reports systems reviewed and no addt'l complaints, except as documented Hematologic/Lymphatic: Reports systems reviewed and no addt'l complaints, except as documented Rest 14 ROS are negative except as mentioned in HPI Vital Signs Vital Signs Vital Signs: 03/02/24 09:22 03/02/24 09:29 03/02/24 10:14 Temperature 97.3 F L Temperature Source Oral Pulse Rate 86 Respiratory Rate 16 Respiratory Effort Normal Respiratory Pattern Normal Blood Pressure 192/95 H Blood Pressure Mean 127 Pulse Ox 98 99 Oxygen Delivery Method Room Air Room Air 03/02/24 10:22 03/02/24 11:46 03/02/24 12:00 Temperature Temperature Source Pulse Rate 66 75 71 Respiratory Rate 16 16 16 Respiratory Effort Respiratory Pattern Blood Pressure 184/84 H 167/79 H 148/77 H Blood Pressure Mean 117 108 100 Pulse Ox 98 99 99 Oxygen Delivery Method Room Air Room Air 03/02/24 13:30 Temperature 98.2 F Temperature Source Pulse Rate 76 Respiratory Rate 14 Respiratory Effort Respiratory Pattern Blood Pressure 164/88 H Blood Pressure Mean 113 Pulse Ox 98 Oxygen Delivery Method Weight Weight: 155 lb Body Mass Index (BMI) 29.2 Physical Exam Narrative General: Alert, Oriented x3, Cooperative HEENT: Atraumatic, PERRLA, EOMI, Normocephalic Oral: Oral mucosa dry. No Gingival or Mucosal Lesions/ Ulcerations Neck: Supple, No JVD, Negative Carotid Bruits Chest wall/Lungs: Air entry diminished in bilateral lung bases. No crepitation/rhonchi Cardiovascular: Regular rate, Regular Rhythm, Normal S1, Normal S2, systolic murmur present. Abdomen: Bowel Sounds Present, Soft, Non Tender, Non-Distended : No dysuria. No renal angle tenderness. No suprapubic tenderness. Extremities: No edema, Capillary Refill Less than 3 Seconds Skin: No rashes, No breakdown Musculoskeletal: No Tenderness to Palpation of Joints or Extremities Neurological: Cranial nerves II-XII grossly intact, DTR 2+/4. No acute focal neurological deficit. Psych/Mental Status: Normal Affect, Appropriate. Results Lab / Micro Data 03/02/24 09:31 03/02/24 09:31 Labs: Laboratory Results - last 24 hr 03/02/24 09:31: WBC 11.6 H, RBC 4.53, Hgb 14.0, Hct 42.2, MCV 93.2, MCH 30.9, MCHC 33.2, RDW Std Deviation 44.0 H, RDW Coeff of [place] 12.9, Plt Count 318, MPV 9.9, Immature Gran % (Auto) 0.400, Neut % (Auto) 75.9 H, Lymph % (Auto) 18.1 L, [place] % (Auto) 5.3, Eos % (Auto) 0.0, Baso % (Auto) 0.3, Absolute Neuts (auto) 8.8 H, Absolute Lymphs (auto) 2.10, Nucleated RBC % 0, D-Dimer Quant (PE/DVT) 0.41, Sodium 138, Potassium 4.1, Chloride 107, Carbon Dioxide 29.0, Anion Gap 2 L, BUN 14, Creatinine 0.85, Estim Creat Clear Calc 52.07, Est GFR (MDRD) Af Amer 84, Est GFR (MDRD) Non-Af 69, BUN/Creatinine Ratio 16.5, Glucose 139 H, Calcium 9.2, Magnesium 2.1, Troponin I High Sens 26, B-Natriuretic Peptide 106.4 H, TSH 0.319 L 03/02/24 12:27: Troponin I High Sens 39 Imaging Radiology Impression Chest X-Ray 03/02/24 10:32 IMPRESSION: No acute cardiopulmonary process identified. Electronically Signed: Nayana Monroe MD at 11:04 EDT Reading Location ID and State: [facility] / [place] Tel , Service support , Assessment & Plan Assessment/Plan (1) Unstable angina: PLAN: Plan This is a 73-year-old female being admitted for unstable angina. 1. Atypical chest pain with shortness of breath on exertion, suggestive of unstable angina: Patient is being admitted to PCU. Serial cardiac enzymes. Repeat EKG on admission. If tropes normal, patient can have treadmill nuclear stress test on Monday. JARAD risk score is 3. Patient is states that she is on baby aspirin but not listed on home medication therefore I have not counted on JARAD score 2. GERD with hiatus hernia: Patient had EGD by [facility] as mentioned below. On pantoprazole 40 mg twice daily. Completed sucralfate for 2 weeks. Pantoprazole oral changed to IV EGD November 13, 2019 Impressions : - Z-line regular, 37 cm from the incisors. - Normal examined duodenum. - Erythematous mucosa in the antrum. Biopsied. - Two gastric polyps. Resected and retrieved. 3. Carotid artery disease and hypertension: Risk factors for coronary artery disease. Carotid Doppler shows right ICA 60 to 79% stenosis. Left 120 to 39% stenosis. She has follow-up with vascular surgery as an outpatient including clinic 4. Mild eccentric MR: Last echo in April 2022 shows EF 70% with mild eccentric MR. 5. Other chronic comorbidities include dyslipidemia, hypothyroidism, anxiety and depression: Home medication reconciliation done. Fasting profile tomorrow Due to prophylaxis, moderate risk: Lovenox 40 mg subcu daily. Living will/advanced directive/end of life care: Patient does have living will or advanced directive. Her is power of regulatory attorney for health. After discussion of benefits/risks procedures involved with full code, DNR CC arrest and DNR CC, the patient opted for DNR CC arrest with no intubation Patient doesn't want artificial life support including intubation, tube feed, ventilator and/chest compression, central venous catheter, vasopressor and DC shock if needed Total time spent in [id number] encounter in discussion of advanced directive 17 minutes. Laboratory Results 03/02/24 09:31: WBC 11.6 H, RBC 4.53, Hgb 14.0, Hct 42.2, MCV 93.2, MCH 30.9, MCHC 33.2, RDW Std Deviation 44.0 H, RDW Coeff of [place] 12.9, Plt Count 318, MPV 9.9, Immature Gran % (Auto) 0.400, Neut % (Auto) 75.9 H, Lymph % (Auto) 18.1 L, [place] % (Auto) 5.3, Eos % (Auto) 0.0, Baso % (Auto) 0.3, Absolute Neuts (auto) 8.8 H, Absolute Lymphs (auto) 2.10, Nucleated RBC % 0, D-Dimer Quant (PE/DVT) 0.41, Sodium 138, Potassium 4.1, Chloride 107, Carbon Dioxide 29.0, Anion Gap 2 L, BUN 14, Creatinine 0.85, Estim Creat Clear Calc 52.07, Est GFR (MDRD) Af Amer 84, Est GFR (MDRD) Non-Af 69, BUN/Creatinine Ratio 16.5, Glucose 139 H, Calcium 9.2, Magnesium 2.1, Troponin I High Sens 26, B-Natriuretic Peptide 106.4 H, TSH 0.319 L 03/02/24 12:27: Troponin I High Sens 39 Clinical Impression(s) from Imaging Studies Chest X-Ray 03/02/24 10:32 IMPRESSION: No acute cardiopulmonary process identified. Charges/Coding Visit Charges Inpatient E&M: 95880 Init Hosp L3 Procedures Hospitalists Procedures: 77246 Advncd Care Plan 30 Min
[2024-03-02 15:47] LABS: Magnesium 1.9 mg/dL (1.6-2.6)
[2024-03-02 17:23] LABS: Troponin-I HS 40 pg/mL (3.0-54.0)
[2024-03-02] MEDS: Enoxaparin 40 MG/0.4 ML Syringe SC (17:46)
[2024-03-02] MEDS: Pantoprazole Sodium 40 MG in 0.9% Normal Saline (100mL MB+) 100 ML 330 MG IV ×2 (17:46→22:33)
[2024-03-02] MEDS: 0.9% Normal Saline (500mL Bag) 500 ML 15 ML IV (17:46)
[2024-03-02] MEDS: 0.9% Saline Lock 10 ML Syringe IV (18:43)
[2024-03-02] MEDS: Labetalol (Prefilled) 20 MG/4 ML Vial IV (18:43)
[2024-03-02] MEDS: Ipratropium/Albuterol Sulfate 3 ML AMPUL.NEB INHALATION (19:40)
[2024-03-02] MEDS: traZODone 100 MG Tablet PO (22:33)
[2024-03-02] MEDS: Acetaminophen 325 MG Tablet 650 MG PO (22:36)
[2024-03-03] VITALS (11 sets, daily range): BP systolic 125–176; BP diastolic 60–92; PULSE 70–89; RESP 16–18; TEMP 36.5–36.6; O2SAT 98–100; BMI 28.9
[2024-03-03 05:00] LABS: Absolute Lymphocyte Count 2.22 X10^3/uL (0.83-4.51); Absolute Neutrophil Count 5.6 X10^3/uL (2.0-7.7); Basophil# 0.03 X10^3/uL; Basophil% 0.3 % (0-1); Eosinophil# 0.01 X10^3/uL; Eosinophils% 0.1 % (0-5); Hematocrit 34.2 % (37-47); Hemoglobin 11.7 g/dL (12.0-15.0); Lymphocyte # 2.22 X10^3/ul (0.83-4.51); Lymphocyte % 25.8 % (19-41); Mean Corp Hgb Conc 34.2 g/dL (32-36); Mean Corpuscular Hgb 31.4 pg (27.0-32.0); Mean Corpuscular Volume 91.7 fL (81-99); Mean Platelet Vol. 9.5 fl (6.2-12.0); Monocyte% 8.1 % (0-10); NRBC Flagged by Analyzer 0 % (0-5); Neutrophil % 65.2 % (47-70); Platelet Count 226 K/mm3 (150-450); RBC Distribution Width CV 13.2 % (11.6-14.6); RBC Distribution Width SD 45.1 fl (35.1-43.9); Red Blood Count 3.73 M/mm3 (4.2-5.4); White Blood Count 8.6 K/mm3 (4.4-11.0)
[2024-03-03] MEDS: Levothyroxine 75 MCG Tablet PO (05:26)
[2024-03-03 05:43] LABS: Anion Gap 4 (5-15); BUN 21 mg/dL (7-18); BUN/Creat Ratio 26.4 RATIO (10-20); Calcium,Total 8.6 mg/dL (8.5-10.1); Chloride 109 mmol/L (98-107); Cholesterol 204 mg/dL (200); EST Glomerular Filtration Rate 75 mL/min (>60); Est Glom Filt Rate - Afr Amer 91 mL/min (>60); Estimated Creatinine Clearance 54.97 ml/min; Glucose 127 mg/dL (74-106); High Density Lipoprotein 69 mg/dL; Potassium 3.7 mmol/L (3.5-5.1); Sodium Level 138 mmol/L (136-145); Thyroid Stim Hormone (TSH) 0.366 uIU/mL (0.358-3.740); Triglycerides 75 mg/dL; Very Low Density Lipoprotein 15 mg/dL (5-40)
[2024-03-03] MEDS: Ipratropium/Albuterol Sulfate 3 ML AMPUL.NEB INHALATION ×2 (07:36→13:09)
[2024-03-03] MEDS: Aspirin E.C. 81 MG Tablet PO (09:19)
[2024-03-03] MEDS: hydroCHLOROthiazide 25 MG Tablet PO (09:20)
[2024-03-03] MEDS: Enoxaparin 40 MG/0.4 ML Syringe SC (09:20)
[2024-03-03] MEDS: Pantoprazole Sodium 40 MG in 0.9% Normal Saline (100mL MB+) 100 ML 330 MG IV ×2 (09:24→21:59)
--- NOTE | 2024-03-03 14:17 | PN_ITS ---
Subjective Subjective Patient seen and examined. She has no chest pain today. She feels well and review of systems otherwise negative. She has remained hemodynamically stable. Objective Data Objective Data Vital Signs: Vital Signs Temp Pulse Resp BP Pulse Ox O2 Del Method 97.8 F 70 18 159/89 H 100 Room Air 03/03/24 09:13 03/03/24 13:11 03/03/24 13:11 03/03/24 09:13 03/03/24 09:13 03/03/24 09:15 Oxygen Delivery Method Room Air Weight: 153 lb 0.013 oz Body Mass Index (BMI) 28.9 Intake & Output: Intake and Output for Last 24 Hours 03/01/24 03/02/24 03/03/24 23:59 23:59 23:59 Intake Total 720 / 720 630 / 630 Balance 720 / 720 630 / 630 Lab / Micro Data 03/03/24 04:50 03/03/24 04:50 Labs: Laboratory Results - last 24 hr 03/02/24 12:27: Magnesium 1.9 03/02/24 16:55: Troponin I High Sens 40 03/03/24 04:50: WBC 8.6, RBC 3.73 L, Hgb 11.7 L, Hct 34.2 L, MCV 91.7, MCH 31.4, MCHC 34.2, RDW Std Deviation 45.1 H, RDW Coeff of [place] 13.2, Plt Count 226, MPV 9.5, Immature Gran % (Auto) 0.500, Neut % (Auto) 65.2, Lymph % (Auto) 25.8, [place] % (Auto) 8.1, Eos % (Auto) 0.1, Baso % (Auto) 0.3, Absolute Neuts (auto) 5.6, Absolute Lymphs (auto) 2.22, Nucleated RBC % 0, Sodium 138, Potassium 3.7, C hloride 109 H, Carbon Dioxide 25.0, Anion Gap 4 L, BUN 21 H, Creatinine 0.80, Estim Creat Clear Calc 54.97, Est GFR (MDRD) Af Amer 91, Est GFR (MDRD) Non-Af 75, BUN/Creatinine Ratio 26.4 H, Glucose 127 H, Calcium 8.6, Triglycerides 75, C holesterol 204 H, LDL Cholesterol 120, VLDL Cholesterol 15, HDL Cholesterol 69, TSH 0.366 Micro: Microbiology 10/19/24 22:30 Mucosa - Nasopharyngeal SARS-CoV-2, Influenza & RSV (PCR) - Final Physical Exam Const alert, oriented x3 and no apparent distress General Appearance: cooperative HEENT normocephalic, head/scalp atraumatic and moist oral mucous membranes Eyes PERRL and EOMs intact bilaterally Neck no lymphadenopathy, supple and no JVD Lymph Lymphatic: no lymphadenopathy noted and no lymphedema noted Resp normal respiratory effort, normal air movement and clear to auscultation bilaterally Cardio regular rate, regular rhythm, S1 normal heart sound, S2 normal heart sound and no murmurs GI normal to inspection, nondistended, normoactive bowel sounds, soft to palpation, non-tender and non-distended Extremity normal capillary refill, no clubbing, cyanosis or edema and no calf tenderness General Extremity: no tenderness to palpation of joints or extremities Skin General Skin Exam: no breakdown Neuro CN's II-XII intact bilaterally, no focal motor deficits, no sensory deficits noted and deep tendon reflexes 2+ bilaterally Motor Exam: strength 5/5 throughout and general weakness Psych thought process normal and cooperative Appearance: appropriate Assessment & Plan Assessment/Plan (1) Chest pain: PLAN: Plan #Chest pain to rule out ACS * Was admitted with a complaint of pressure-like chest pain which worsened with exertion and radiated up her neck. * She does have a history of 70% right ICA stenosis and I did follow-up with vascular surgeon outpatient basis. * Troponins x 3 were negative. EKG showed no acute ST changes. * P.o. aspirin. For stress test tomorrow. * #Right carotid stenosis * Says she follows up regularly with her PCP for carotid ultrasounds for surveillance. She also has 30% mid right ICA stenosis. She has been referred to vascular surgery but is yet to see. * P.o. aspirin but is not on statin. Unclear why. Will start high intensity statin in order lipid profile. Follow-up with vascular surgeon outpatient basis. #GERD: On PPI #Hyperlipidemia: Not on statin. Unclear why. Not listed as an allergy. Will start statins and check lipid profile #Hypothyroidism: On Synthroid #Hypertension: On hydrochlorothiazide DVT prophylaxis: Lovenox Charges/Coding Visit Charges Inpatient E&M: 45945 Subs Hosp L2
[2024-03-03] MEDS: CLARIFY ORDER NOTE (16:00)
[2024-03-03] MEDS: hydrALAZINE 20 MG/ML Vial 10 MG IV (16:10)
[2024-03-03] MEDS: Acetaminophen 325 MG Tablet 650 MG PO (19:27)
[2024-03-03] MEDS: Ipratropium 0.5 MG/2.5 ML SOLUTION INHALATION (19:58)
[2024-03-03] MEDS: traZODone 100 MG Tablet PO (21:56)
[2024-03-04] VITALS (13 sets, daily range): BP systolic 125–171; BP diastolic 58–73; PULSE 63–87; RESP 18; TEMP 36.6–36.7; O2SAT 97–100
[2024-03-04 05:46] LABS: Absolute Lymphocyte Count 2.23 X10^3/uL (0.83-4.51); Basophil# 0.05 X10^3/uL; Basophil% 0.7 % (0-1); Eosinophil# 0.04 X10^3/uL; Eosinophils% 0.6 % (0-5); Hemoglobin 11.7 g/dL (12.0-15.0); Lymphocyte # 2.23 X10^3/ul (0.83-4.51); Lymphocyte % 31.9 % (19-41); Mean Corp Hgb Conc 33.4 g/dL (32-36); Mean Corpuscular Volume 92.6 fL (81-99); Mean Platelet Vol. 9.7 fl (6.2-12.0); Monocyte# 0.64 X10^3/uL; Monocyte% 9.2 % (0-10); NRBC Flagged by Analyzer 0 % (0-5); Neutrophil # 3.99 X10^3/uL (2.7-7.7); Platelet Count 247 K/mm3 (150-450); RBC Distribution Width CV 13.3 % (11.6-14.6); RBC Distribution Width SD 45.2 fl (35.1-43.9); Red Blood Count 3.78 M/mm3 (4.2-5.4)
[2024-03-04 06:10] LABS: Anion Gap 4 (5-15); BUN 19 mg/dL (7-18); Chloride 109 mmol/L (98-107); Creatinine, Serum 0.76 mg/dL (0.55-1.02); EST Glomerular Filtration Rate 79 mL/min (>60); Est Glom Filt Rate - Afr Amer 96 mL/min (>60); Estimated Creatinine Clearance 54.97 ml/min; Glucose 113 mg/dL (74-106); Potassium 4.3 mmol/L (3.5-5.1); Sodium Level 137 mmol/L (136-145)
[2024-03-04] MEDS: Levothyroxine 75 MCG Tablet PO (06:10)
[2024-03-04] MEDS: Aspirin E.C. 81 MG Tablet PO (06:10)
[2024-03-04] MEDS: hydroCHLOROthiazide 25 MG Tablet PO (06:10)
--- NOTE | 2024-03-04 10:25 | CASEMGMT ---
RN CM Face to Face with patient for initial transition planning/care coordination assessment. RN CM introduced self and role at [facility]. Patient lying in bed, alert and oriented, at bedside. Patient willing to participate in assessment and is able to answer all questions appropriately. Care providers, pharmacy, and demographics verified. Strata: 1 PCP: Kevin Specialists: Miguel Angel, pain; Cedrick, Vascular; Eddy, tongue lining stitcher; Preferred Pharmacy: [facility] Insurance: [facility] Prescription Benefit: yes Living Will/HPOA: yes, Leonard Tobar LNOK: Living Arrangements: Patient lives with in a single story home with 1 step to enter the home. Patient is independent Transportation: self, DME/HHC: Patient has shower chair, BSC, raised toilet, grab bars, walker at home. No previous HHC or SNF. Patient wishes to discharge home, denies need for home health at this time. Patient states he has no further needs or concerns at this time. CM to follow for discharge planning needs that may arise. Disposition Plan: Patient to discharge home with family support and follow-up plans in place. Darya THACKER, RN, CM
--- NOTE | 2024-03-04 10:27 | STRESSREP ---
Stress Test Report Date: 03/04/2024 Procedure: Exercise tolerance test/imaging study Indications: Chest pain Consent: Per the patient Procedure: The patient exercised on a Sami protocol for 6 minutes and 59 seconds achieving a peak heart rate of 121 bpm (82% predicted maximal heart rate) with a peak blood pressure 154/68 mmHg and a peak MET capacity of 10.0 METs. The baseline ECG demonstrated sinus rhythm. The peak exercise ECG demonstrated ST depressions in inferior and lateral leads suggestive of ischemia. Rare PVC noted. The functional capacity was considered average. There was no complaint of chest pain however the patient did complain of throat discomfort. The examination was discontinued secondary to dyspnea. The patient was injected with 9.8 mCi of technetium 99m Cardiolite and subsequently rest SPECT Cardiolite nuclear imaging was obtained in the horizontal long, vertical long, and short axis views. Post-exercise, the patient was injected with 31.4 mCi of technetium 99m Cardiolite and subsequently stress SPECT Cardiolite nuclear imaging was obtained in the horizontal long, vertical long, and short axis views. A gated Cardiolite study at peak stress was obtained. Rest and stress SPECT Cardiolite nuclear imaging status post realignment, normalization, and attenuation correction, demonstrates mild reversible perfusion defect of the inferior wall suggestive of ischemia. There is end systolic thickening and brightening. The gated Cardiolite study demonstrates myocardial thickening and inward wall motion. The reported LVEF is 79%. Impression: 1. Technically adequate exercise tolerance test. 82% maximal predicted heart rate achieved. 2. Peak exercise ECG suggestive of ischemia 3. There were no cardiac dysrhythmias pretest, during exercise, or recovery 4. Rest and stress SPECT Cardiolite nuclear imaging demonstrate mild reversible perfusion defect of the inferior wall suggestive of ischemia. 5. The gated Cardiolite study reports an LVEF of 79%. This note was generated with [employer] software. It may contain incorrect words, spelling, and punctuation that were not noted in checking the note before signing.
[2024-03-04] MEDS: Pantoprazole Sodium 40 MG in 0.9% Normal Saline (100mL MB+) 100 ML 330 MG IV ×2 (10:55→21:05)
--- NOTE | 2024-03-04 11:01 | CON.PCM.CA_ITS ---
Assessment & Plan Assessment/Plan (1) Angina pectoris: PLAN: New onset angina pectoris. Abnormal exercise stress Myoview. Options discussed with patient. Coronary angiography with possible revascularization discussed. Risks benefits and alternatives explained. She understand these and wishes to proceed with coronary angiography. (2) Abnormal cardiovascular stress test: PLAN: See #1 above. (3) Essential (primary) hypertension: PLAN: Hydrochlorothiazide. (4) Carotid artery disease: PLAN: Follows with vascular surgery. HPI Consult Data Date of Consult: 03/04/24 HPI Narrative Reason for Consultation: Abnormal stress test HPI Narrative: 73-year-old female with past medical history significant for carotid artery disease, hypertension and GERD. She presented to the hospital with complaints of anterior chest tightness with exertion. According to the patient, this has been going on for the last 1 month. Per her, moderate to strenuous exertion causes squeezing sensation in her upper chest and throat. He is not sure about a associated shortness of breath. No radiation to the arm neck or jaw. No diaphoresis. Per her, the discomfort is resolved promptly with rest. Denies any rest symptoms. Patient has had an exercise Myoview stress test done this morning. It was positive for ischemia by EKG. Also nuclear images suggestive of reversible inferior ischemia. [facility] Medical History Post-menopausal Alcohol use Thyroid disease Back pain Former smoker Leg cramps History of echocardiogram Cardiology follow-up encounter Carotid artery disease COVID-19 (~03/06/22) Obesity Psychophysiologic insomnia Anxiety Essential (primary) hypertension Trigger finger, left ring finger Vitamin D deficiency Esophageal reflux Hyperlipidemia IBS (irritable bowel syndrome) Diffuse cystic mastopathy Generalized osteoarthritis Diarrhea due to COVID-19 Hypothyroidism (acquired) Strain of right forearm Strain of right wrist Strain of right hand Spinal stenosis of lumbosacral region Depression H/O radioactive iodine thyroid ablation Home Medications ?Medication ?Instructions ?Recorded ?Last Taken ?Type trazodone 100 mg tablet 100 mg PO QHS insomnia 08/17/20 Unknown History dicyclomine 10 mg capsule 10 mg PO 4X/DAY PRN abdominal pain 03/28/22 Unknown History hydrochlorothiazide 50 mg tablet 50 mg PO DAILY blood pressure 03/28/22 Unknown History lorazepam 0.5 mg tablet 0.5 mg PO QHS PRN sleep 03/28/22 Unknown History omeprazole 40 mg capsule,delayed 40 mg PO BID gut 03/28/22 Unknown History release bupropion HCl 300 mg 24 hr tablet, 300 mg PO DAILY anxiety 04/11/22 Unknown History extended release cholecalciferol (vitamin D3) 50 4,000 unit PO DAILY supplement 04/11/22 Unknown History mcg (2,000 unit) tablet biotin 10,000 mcg capsule 5,000 mcg PO DAILY hair 11/06/23 Unknown History cyanocobalamin (B12)-cobamamide 1 rob sublingual DAILY suppliment 11/06/23 Unknown History 5,000 mcg-100 mcg sublingual lozenge (B12) levothyroxine 75 mcg tablet 75 mcg PO DAILY thyroid 03/02/24 Unknown History meloxicam 15 mg tablet 15 mg PO DAILY inflimmation 03/02/24 Unknown History Allergy/AdvReac Type Severity Reaction Status Date / Time sulfabenzamide Allergy Unknown red mouth Verified 03/02/24 09:32 nizatidine (From Axid) Allergy Hives Verified 03/02/24 09:32 Sulfa (Sulfonamide Allergy Rash, oral Verified 03/02/24 09:32 Antibiotics) redness atorvastatin AdvReac Intermediate Other Verified 03/02/24 09:32 duloxetine (From Cymbalta) AdvReac Intermediate Other Verified 03/02/24 09:32 lisinopril AdvReac Intermediate Other Verified 03/02/24 09:32 sibutramine (From Meridia) AdvReac Intermediate Rash Verified 03/02/24 09:32 losartan AdvReac Mild Other Verified 03/02/24 09:32 Family History Mother Arthritis Myocardial infarction Father Diabetes Heart disease Sister Brain bleed Surgical History History of radiofrequency ablation (RFA) of nerve of lumbar spine History of selective injection of anesthetic agent around lumbar nerve root History of lumbar surgery (~08/2020) History of esophagogastroduodenoscopy (EGD) (~02/27/20) History of colonoscopy History of tonsillectomy and adenoidectomy Hx of cataract removal with insertion of prosthetic lens (~2015) H/O dilation and curettage Social History (Updated 03/02/24 @ 16:16 by Keisha Singer) household members: spouse housing: house Smoking Status: Former smoker how long ago did patient quit smokin years ago alcohol intake: current alcohol intake frequency: a few times a week substance use type: does not use caffeine: Yes Type: coffee Number of servings: 1 what type of physical activity do you participate in: walking, bicycling and other details: Cory do you feel safe at home: Yes Physical Exam Narrative Comfortable. No apparent distress. Heart sounds 1 and 2 are normal. No murmurs or rubs are noted. Chest clear to auscultation bilaterally. Abdomen soft bowel sounds positive. Alert oriented x 3. No ankle edema. Risk Stratification Risk Stratification Applicable: No Objective Data Vital Signs: Vital Signs Temp Pulse Resp BP Pulse Ox O2 Del Method 97.9 F 63 18 145/58 H 97 Room Air 03/04/24 06:11 03/04/24 06:11 03/04/24 06:11 03/04/24 06:11 03/04/24 07:20 03/04/24 10:58 Oxygen Delivery Method Room Air Weight: 153 lb 0.013 oz Body Mass Index (BMI) 28.9 Intake & Output: Intake and Output for Last 24 Hours 03/02/24 03/03/24 03/04/24 23:59 23:59 23:59 Intake Total 720 / 720 1220 / 1220 500 / 500 Balance 720 / 720 1220 / 1220 500 / 500 Lab / Micro Data 03/04/24 05:35 03/04/24 05:35 Labs: Laboratory Results - last 24 hr 03/04/24 05:35: WBC 7.0, RBC 3.78 L, Hgb 11.7 L, Hct 35.0 L, MCV 92.6, MCH 31.0, MCHC 33.4, RDW Std Deviation 45.2 H, RDW Coeff of [place] 13.3, Plt Count 247, MPV 9.7, Immature Gran % (Auto) 0.600, Neut % (Auto) 57.0, Lymph % (Auto) 31.9, [place] % (Auto) 9.2, Eos % (Auto) 0.6, Baso % (Auto) 0.7, Absolute Neuts (auto) 4.0, Absolute Lymphs (auto) 2.23, Nucleated RBC % 0, Sodium 137, Potassium 4.3, C hloride 109 H, Carbon Dioxide 25.0, Anion Gap 4 L, BUN 19 H, Creatinine 0.76, Estim Creat Clear Calc 54.97, Est GFR (MDRD) Af Amer 96, Est GFR (MDRD) Non-Af 79, BUN/Creatinine Ratio 25.0 H, Glucose 113 H, Calcium 9.0 Rhythm Strip Rhythm Strip: Sinus Rhythm Cardiology Labs/Tests 03/04/24 05:35: WBC 7.0, RBC 3.78 L, Hgb 11.7 L, Hct 35.0 L, MCV 92.6, MCH 31.0, MCHC 33.4, Plt Count 247, MPV 9.7, Immature Gran % (Auto) 0.600, Neut % (Auto) 57.0, Lymph % (Auto) 31.9, [place] % (Auto) 9.2, Eos % (Auto) 0.6, Baso % (Auto) 0.7, Absolute Neuts (auto) 4.0, Nucleated RBC % 0, Sodium 137, Potassium 4.3, C hloride 109 H, Carbon Dioxide 25.0, Anion Gap 4 L, BUN 19 H, Creatinine 0.76, Est GFR (MDRD) Af Amer 96, Est GFR (MDRD) Non-Af 79, BUN/Creatinine Ratio 25.0 H , Glucose 113 H, Calcium 9.0 Rhythm: EKG: Sinus rhythm. ECHO: Stress Test: Cardiac Cath: PCI: CT Surgery: Holter monitor: EPS: PPM: CXR: Chest CT Scan:
--- NOTE | 2024-03-04 12:49 | CL.I_ITS ---
Patient Name: DAMIEN ROBERT Study Date: 03/04/2024 Performing: Alexandrea Valdivia MD Ht: 61 inches 154.94 cm : 1950 Wt: 153 lbs 69.4 kg Age: 73 Gender: female BSA: 1.69 PROCEDURE(S) PERFORMED DC02-(02839)LHC/COR IC12-([id number])EZEKIEL W/WO PTCA, SINGLE CORONARY ARTERY CLINICAL PROFILE AND CO-MORBIDITIES Indications: New Onset Angina <= 2 months, Suspected CAD Heart Failure: None Stress/Imaging Stress Test w/SPECT MPI: Yes Result: Positive Intermediate Risk Stress Test with SPECT MPI: Positive Intermediate Risk Angina Classification Anginal Classification w/in 2 Weeks: CCS II CAD Presentations: Unstable angina. CONCLUSIONS 50% Prox, 95% Mid RCA 60% Prox LAD 40% Prox LCX Successful EZEKIEL Mid RCA using [place] 3.0x22 mm RECOMMENDATIONS ASA Indefinitley P2Y12 inhibitors for atleast 6 months Risk factor modification DESCRIPTION OF PROCEDURE The patient arrived to the procedure lab. The risks and benefits of the procedure as well as a full description of our services here and lack of surgical backup were fully explained to the patient and/or their significant other prior to the catheterization. The Timeout was completed, verifying the correct patient and procedure. The patient's procedural site was prepped and draped in the usual fashion. Local anesthetic was given subcutaneously to right radial region with Lidocaine 2%. Using a modified Seldinger technique, arterial access was obtained via the right radial artery, a 6Fr sheath was inserted.. Left Coronary Artery selective angiography was performed in multiple views using a 5 Fr. 4.0 [place] catheter. Right Coronary Artery selective angiography was then performed in multiple views using a 5 Fr. 4.0 [place] catheterThe images were reviewed and options discussed. A decision was then made to proceed with an Intervention, IVUS or other adjunct procedure. JR 4 Guide catheter was inserted and engaged into the RCA. {L1} RUNTHROUGH Guide wire was advanced to the RCA. MICHAEL FRONTIER 3.0 X 22 Drug Eluting stent was inserted. Drug Eluting stent was advanced across the lesion in the right coronary, mid. Angiogram performed post stent deployment. [place] EMERGE 3.0 X 15 Balloon catheter was inserted post stent. Angiogram performed pre balloon dilatation. Angiogram performed post balloon dilatation. Angiogram performed post stent deployment. Angiogram performed post stent deployment. Guide catheter was exchanged for a TIGER 4.0 The arterial sheath was pulled and a TR Band was applied for hemostasis 11 ml of air CORONARY ANGIOGRAPHY DOMINANCE: Right Dominant LEFT MAIN: Angiographically normal LEFT ANTERIOR DESCENDING ARTERY: LAD: Tubular 60% Proximal lesion in LAD Tubular 40% Mid lesion in LAD RIGHT CORONARY ARTERY: RCA: Tubular 50% Proximal lesion in RCA Tubular 95% Mid lesion in RCA INTERVENTION INFORMATION LESION SITE: RCA (Mid) Lesion Complexity: High/C, culprit lesion: Yes, lesion length: 20 mm Pre Stenosis: 95 % Pre intervention JARAD flow: 3 PROCEDURE: Drug Eluting Stent with post dilatation Post Stenosis: 0 % Post intervention JARAD flow: 3 Lesion Devices: Cordis 6 Fr JR4 100cm Guide Catheter Terumo .014 180cm Runthrough Extra Floppy straight Medtronic 3.0 x 22 MICHAEL FRONTIER EZEKIEL Eliseo Sci [place] EMERGE MR 3.00x15 BALLOON COMPLICATIONS No Complications PROCEDURE MEDICATIONS Versed 1 mg IV Fentanyl 50 mcg IV Versed 1 mg IV Fentanyl 25 mcg IV Fentanyl 50 mcg IV Versed 2 mg IV Versed 1 mg IV Fentanyl 50 mcg IV Oxygen: 2 L/min via nasal cannula Brilinta 180 mg PO @ 03/04/2024 12:06:52 Heparin given IA 03/04/2024 11:57:08 Heparin 5000 unit(s) IV 03/04/2024 12:05:18 Heparin 3000 unit(s) IV 03/04/2024 12:33:39 Heparin 1000 unit(s) IV 03/04/2024 12:44:40 Nitro 200 mcg IC 03/04/2024 12:14:28 Nitro 200 mcg IC 03/04/2024 12:14:28 Nitro 200 mcg IC 03/04/2024 12:20:35 Verapamil 2.5mg, Ntg 200mcgs, 2000 units of Heparin given IA 03/04/2024 11:57:08 IV Bolus: .9 NaCl 250 ml total 03/04/2024 11:56:53 SUMMARY OF HEMODYNAMIC DATA Time AIR REST ECG 11:43:48 AO 136/71 (99) SA 11:58:51 AO 129/64 (93) 12:01:05 AO 140/40 (77) 12:08:09 AO 134/56 (85) 12:14:20 AO 138/65 (95) 12:21:20 AO 121/58 (85) 12:29:30 Signed By Alexandrea Valdivia MD On 03/04/2024 12:47:55 PM Alexandrea Valdivia MD
[2024-03-04 12:57] LABS: ACT Activated Clotting Time 238 sec (74-137)
[2024-03-04 12:58] LABS: ACT Activated Clotting Time 275 sec (74-137)
--- NOTE | 2024-03-04 12:59 | CRPHASE1 ---
Patient Communication Patient Information Former Patient:: Phase I PHII Cardiac Rehab Discussed with Patient:: Yes Guide to Cardiac Rehab Given to Patient:: Yes Cardiac Rehab Facility Choice List Given to Patient:: Yes Communication to Cardiac Rehab Choice Program [facility] CR PHII:: Communication Given to CR and Refer to [facility] Hopper Feeder:: Alexandrea Valdivia Refer Phase II Cardiac Rehab:: Yes Post Discharge Choice Letter Given to Patient:: Yes PHII Cardiac Rehab Referral:: [facility] Phase I Charge:: Level I - Education Medical/Surgical History Medical History MT:: Yes Angina:: Yes CAD:: Yes Congestive Heart Failure: Cardiomyopathy:: No Valve Disease/Replacement:: No Pulmonary:: No COPD:: No Asthma:: No BRIGETTE:: No Diabetes:: No Diabetes Type I:: No Diabetes Type II:: No Hypertension:: Yes Dyslipidemia:: Yes Arrhythmias:: No EPS:: No CVA/TIA: CEA:: No PE:: No DVT:: No PVD:: No PAD:: No Arthritis:: No GI:: No GERD:: No Cancer:: No Renal:: No Thyroid:: No Depression:: No Anxiety:: Yes Surgical History PTCA:: Yes Ambulation Ambulation Notes:: independent Cardiac Rehabilitation Info Program Information Cardiac Rehabilitation Program Information: Cardiac Rehab The cardiac rehab team at [facility] consists of highly skilled exercise physiologists, nurses, respiratory therapists and physicians working together with you. Our purpose is to help you have a full recovery and achieve the goals you set for yourself. Over the years many of our patients have returned to activities they assumed they would never do again! We can help restore your confidence and motivation to make lifestyle changes that can have a significant impact on your health and quality of life! We can help answer questions and concerns you may have about exercise, lifestyle, medications, diet, stress and anxiety which are common following a hospitalization. WE monitor ECG and vital signs during exercise and discuss your progress with you and report to your physician(s). Cardiac Rehab is proven to help reduce readmissions, improve functional capacity and lower recurrence of problems with your heart. Our Cardiac Rehab program is Certified by the [place] [employer] of Cardio-Vascular and Pulmonary Rehabilitation (AACVPR) and Accredited by the [place] [employer] through our [facility]. You can contact us at . We invite you to call us with your questions or to get started in our program. If you have other questions or concerns be sure to ask your physician/provider during your follow-up visit. WE look forward to seeing you!
--- NOTE | 2024-03-04 13:00 | EKG12_ITS ---
Test Reason : PCI Blood Pressure : / mmHG Vent. Rate : 077 BPM Atrial Rate : 077 BPM P-R Int : 148 ms QRS Dur : 076 ms QT Int : 420 ms P-R-T Axes : 062 023 053 degrees QTc Int : 475 ms Normal sinus rhythm Normal ECG When compared with ECG of 04-MAR-2024 05:10, MANUAL COMPARISON REQUIRED, DATA IS UNCONFIRMED Confirmed by MELANIE CARDONA, IBAN ([id number]), scientific editor XOCHITL INMAN ([id number]) on 03/07/2024 9:31:16 AM Referred By: DAVIS Confirmed By:IBAN NAVARRO MD
--- NOTE | 2024-03-04 13:01 | CRPH1.INST_ITS ---
General Education Discussed with Patient CAD and cardiac anatomy and function:: Patient communicates acknowledgment, Family communicates acknowledgment, Family returns demonstration and Needs reinforcement Explanation of diagnoses and procedures:: Patient communicates acknowledgment, Family communicates acknowledgment, Family returns demonstration and Needs reinforcement Sign/Symptoms of UT:: Patient communicates acknowledgment, Family communicates acknowledgment, Family returns demonstration and Needs reinforcement Antiplatelet therapy: Patient communicates acknowledgment, Family communicates acknowledgment, Family returns demonstration and Needs reinforcement Proper use of NTG-SL: Patient communicates acknowledgment, Family communicates acknowledgment, Family returns demonstration and Needs reinforcement Emergency procedures and activation of EMS: Patient communicates acknowledgment, Family communicates acknowledgment, Family returns demonstration and Needs reinforcement Compliance of all prescribed medications: Patient communicates acknowledgment, Family communicates acknowledgment, Family returns demonstration and Needs reinforcement Smoking Risk Factors Patient Nicotine/Smoking Risk Factors Are:: Never smoked Response Code Nicotine/Smoking Response Code:: Not instructed Dyslipidemia Risk Factors Patient Dyslipidemia Risk Factors Are:: Total Cholesterol, Triglycerides, HDL and LDL Recommendations Recommendations Include:: Lipid profile provided and Therapeutic Lifestyle Change dietary guidelines Response Code Dyslipidemia Response Code:: Patient communicates acknowledgment, Family communicates acknowledgment, Family returns demonstration and Needs reinf orcement Overweight/Obesity Risk Factors Patient Overweight/Obesity Risk Factors Are:: Overweight = 26-29 (28.9) Recommendations Recommendations Include:: Weight loss of 5-10%, Reduced calorie diet and Exercise 5-7 times/week Response Code Overweight/Obesity:: Patient communicates acknowledgment, Family communicates acknowledgment, Family returns demonstration and Needs reinforcement Hypertension Recommendations Recommendations Include:: Maintain BP <130/85, DASH dietary guidelines and Decrease/maintain normal body weight Response Code Hypertension:: Patient communicates acknowledgment, Family communicates acknowledgment, Patient returns demonstration and Family returns demonstration Heart Disease Risk Factors Patient Heart Disease Risk Factors Are:: Family history of heart disease < 65 years old and Previous cardiac event Recommendations Recommendations Include:: Educated family members of their risk and Educated family members of importance of prevention of heart disease Response Code Heart Disease Response Code:: Patient communicates acknowledgment, Family communicates acknowledgment, Family returns demonstration and Needs reinforcement Diabetes Risk Factors Patient Diabetes Risk Factors Are:: No documented hx of diabetes Response Code Diabetes:: Not instructed Metabolic Syndrome Recommendations Recommendations Include:: Encouraged follow-up with Primary Care Physician Response Code Metabolic Syndrome Response Code:: Not instructed Sedentary Recommendations Recommendations Include:: Monitored Outpatient Cardiac Rehab Stress Risk Factors Patient Stress Risk Factors Are:: Patient denies stress as a risk factor Response Code Stress Response Code:: Not instructed
[2024-03-04] MEDS: 0.9% Normal Saline (1000mL) 1,000 ML 150 ML IV (13:07)
[2024-03-04] MEDS: buPROPion (XL) 300 MG TABLET.XL PO (16:02)
--- NOTE | 2024-03-04 20:48 | PN.HOSP_ITS ---
Reason for Visit Reason for Visit: Chest pain/fatigue Subjective Subjective Cardiac catheterization done today due to abnormal stress test and drug-eluting stent placed. Discussed antihypertensives and statins with the patient. Patient has not tolerated any statins previously and may need to be evaluated for alternative as an outpatient. She also stated she had coughing with lisinopril and losartan. I did discuss with her that losartan typically does not cause cough and she is willing to retry this so we will start 25 mg daily as her blood pressure remains elevated. Objective Data Objective Data Vital Signs: Vital Signs Temp Pulse Resp BP Pulse Ox O2 Del Method 97.8 F 87 18 158/71 H 98 Room Air 03/04/24 15:50 03/04/24 15:50 03/04/24 15:50 03/04/24 15:50 03/04/24 15:50 03/04/24 15:50 Oxygen Delivery Method Room Air Weight: 69.4 kg Body Mass Index (BMI) 28.9 Intake & Output: Intake and Output for Last 24 Hours 03/02/24 03/03/24 03/04/24 23:59 23:59 23:59 Intake Total 720 / 720 1220 / 1220 1850 / 1850 Balance 720 / 720 1220 / 1220 1850 / 1850 Lab / Micro Data 03/04/24 05:35 03/04/24 05:35 Labs: Laboratory Results - last 24 hr 03/04/24 05:35: WBC 7.0, RBC 3.78 L, Hgb 11.7 L, Hct 35.0 L, MCV 92.6, MCH 31.0, MCHC 33.4, RDW Std Deviation 45.2 H, RDW Coeff of [place] 13.3, Plt Count 247, MPV 9.7, Immature Gran % (Auto) 0.600, Neut % (Auto) 57.0, Lymph % (Auto) 31.9, [place] % (Auto) 9.2, Eos % (Auto) 0.6, Baso % (Auto) 0.7, Absolute Neuts (auto) 4.0, Absolute Lymphs (auto) 2.23, Nucleated RBC % 0, Sodium 137, Potassium 4.3, C hloride 109 H, Carbon Dioxide 25.0, Anion Gap 4 L, BUN 19 H, Creatinine 0.76, Estim Creat Clear Calc 54.97, Est GFR (MDRD) Af Amer 96, Est GFR (MDRD) Non-Af 79, BUN/Creatinine Ratio 25.0 H, Glucose 113 H, Calcium 9.0 03/04/24 12:29: Activated Clotting Time 238 H 03/04/24 12:39: Activated Clotting Time 275 H Micro: Microbiology 03/02/24 22:30 Mucosa - Nasopharyngeal SARS-CoV-2, Influenza & RSV (PCR) - Final Rhythm Strip Rhythm Strip: Sinus Rhythm Physical Exam Const alert, oriented x3, no apparent distress and well nourished Constitutional Narrative: Overweight, older, white female, lying in bed, appears comfortable, watching television, nontoxic HEENT head/scalp atraumatic HEENT Narrative: Mallampati is 3, no thrush Head and Scalp: normocephalic Resp normal respiratory effort, no retractions, no use of accessory muscles and clear to auscultation bilaterally Auscultation: Negative for rales, rhonchi or wheezes Cardio regular rate, regular rhythm, S1 normal heart sound, S2 normal heart sound, no murmurs, no rub, no gallops and no clicks GI normal to inspection, nondistended, normoactive bowel sounds, soft to palpation and non-tender Extremity no clubbing, cyanosis or edema Extremity Narrative: Pedal pulses are 2+, right radial artery post catheterization compression device in place with good cap refill in the hand Neuro oriented x3, moves all extremities and no focal motor deficits Speech: speech normal Psych Psych Narrative: Emotionally labile when she talks about her current situation understandably so but very pleasant, makes good eye contact and interacts appropriately Assessment & Plan Assessment/Plan (1) CAD (coronary artery disease): (2) Abnormal cardiovascular stress test: (3) Chest pain: PLAN: Plan Chest pain -Consistent with unstable angina and patient had abnormal stress test -With abnormal stress test patient was taken for cardiac catheterization at which time she was found to have a 50% proximal and 95% mid RCA stenosis, 60% proximal LAD stenosis, 40% proximal left circumflex stenosis and EZEKIEL to mid RCA was performed -Continue Brilinta -Continue aspirin -Coreg added -Will retry losartan -Patient had cough with lisinopril and had cough with losartan which is atypical and patient is willing to retry -Patient has previously been intolerant of statins with severe myalgias on all statins -Would recommend outpatient follow-up for alternatives -Echocardiogram is pending -Cardiology is following-appreciate input Right carotid artery stenosis -Patient follows up at [facility] vascular surgery -Upcoming repeat ultrasound is pending -Continue aspirin -Patient is not on statin due to intolerance previously Essential hypertension/hyperlipidemia -Patient is statin intolerant -Continue home HCTZ -Continue added beta-allen -Add low-dose losartan and see if she tolerates -Goal blood pressures less than 130/80 Hypothyroidism -Continue levothyroxine GERD -Continue home PPI IBS -Continue home Bentyl Insomnia -Continue home trazodone Anxiety -Continue home as needed lorazepam ask-continue home Wellbutrin DVT prophylaxis -Continue subcu Lovenox CODE STATUS -DNR CCA with no intubation Charges/Coding Visit Charges Inpatient E&M: 08135 Subs Hosp L2
[2024-03-04] MEDS: Pravastatin 40 MG Tablet PO (21:05)
[2024-03-04] MEDS: Carvedilol 3.125 MG TABLET PO (21:05)
[2024-03-04] MEDS: traZODone 100 MG Tablet PO (21:05)
[2024-03-04] MEDS: TICAGRELOR 90 MG TABLET PO (21:05)
[2024-03-04] MEDS: 0.9% Saline Lock 10 ML Syringe IV (21:06)
[2024-03-04] MEDS: Losartan Potassium 25 MG Tablet PO (21:34)
[2024-03-04] MEDS: Acetaminophen 325 MG Tablet 650 MG PO (21:34)
[2024-03-05 03:28] VITALS: BMI 29.5
[2024-03-05 05:40] VITALS: BP 155/79; PULSE 70; RESP 18; TEMP 36.7; O2SAT 99
[2024-03-05] MEDS: Levothyroxine 75 MCG Tablet PO (05:41)
[2024-03-05 06:41] LABS: Absolute Lymphocyte Count 2.27 X10^3/uL (0.83-4.51); Absolute Neutrophil Count 5.8 X10^3/uL (2.0-7.7); Basophil# 0.06 X10^3/uL; Basophil% 0.7 % (0-1); Eosinophil# 0.11 X10^3/uL; Eosinophils% 1.2 % (0-5); Hematocrit 37.5 % (37-47); Lymphocyte # 2.27 X10^3/ul (0.83-4.51); Mean Corp Hgb Conc 34.7 g/dL (32-36); Mean Corpuscular Hgb 32.3 pg (27.0-32.0); Mean Corpuscular Volume 93.1 fL (81-99); Mean Platelet Vol. 9.7 fl (6.2-12.0); Monocyte# 0.77 X10^3/uL; Monocyte% 8.5 % (0-10); NRBC Flagged by Analyzer 0 % (0-5); Neutrophil # 5.81 X10^3/uL (2.7-7.7); Platelet Count 280 K/mm3 (150-450); RBC Distribution Width CV 13.4 % (11.6-14.6); RBC Distribution Width SD 46.2 fl (35.1-43.9); Red Blood Count 4.03 M/mm3 (4.2-5.4); White Blood Count 9.1 K/mm3 (4.4-11.0)
[2024-03-05 07:08] LABS: ALB/GLOB Ratio 1.1 RATIO (0.9-2.4); AST(SGOT) 11 U/L (15-37); Alanine Aminotransfer ALT/SGPT 17 U/L (13-56); Albumin, Serum 3.4 g/dL (3.2-5.0); Alkaline Phosphatase 58 U/L (45-117); Anion Gap 4 (5-15); BUN 21 mg/dL (7-18); BUN/Creat Ratio 26.4 RATIO (10-20); Chloride 110 mmol/L (98-107); EST Glomerular Filtration Rate 75 mL/min (>60); Est Glom Filt Rate - Afr Amer 91 mL/min (>60); Estimated Creatinine Clearance 55.55 ml/min; Glucose 100 mg/dL (74-106); Potassium 4.3 mmol/L (3.5-5.1); Protein, Total 6.4 g/dL (6.4-8.2); Sodium Level 137 mmol/L (136-145)
--- NOTE | 2024-03-05 08:00 | ECHOD_ITS ---
Reason For Study: CHEST PAIN Procedure This was a 2D Doppler, Color Flow transthoracic echocardiogram. Exam performed portable in patient room. Left Ventricle Normal size and thickness. The left ventricular ejection fraction is 60 %. Normal diastology for age. Right Ventricle Normal right ventricle. Atria The left atrium is mildly enlarged. Normal right atrium. Mitral Valve Moderate (2+) mitral valve insufficiency. Tricuspid Valve Mild tricuspid valve insufficiency. Right ventricular systolic pressure estimated to be 36 mmHg. Aortic Valve Trisinus/trileaflet aortic valve. Trivial aortic valve insufficiency. Pulmonic Valve The pulmonic valve is not well visualized. Trivial pulmonic valve insufficiency. Great Vessels Normal sized aortic root. Pericardium/Pleural No pericardial effusion. MMode/2D Measurements & Calculations LVIDd: 3.7 cm IVSd: 1.1 cm Ao root diam: 2.8 cm LVIDs: 2.7 cm LVPWd: 1.1 cm RVDd: 2.3 cm FS: 25.5 % LAV(MOD-bp): 47.0 ml LVAd ap4: 24.3 cm2 LVAd ap2: 20.6 cm2 LAV(MOD-bp) Indexed: 27.6 ml/m2 LVLd ap4: 7.0 cm LVLd ap2: 7.5 cm LAV(MOD-sp2): 47.9 ml EDV(MOD-sp4): 68.2 ml EDV(MOD-sp2): 46.8 ml LAV(MOD-sp4): 44.4 ml EDV(sp4-el): 71.2 ml EDV(sp2-el): 48.4 ml LVAs ap4: 14.7 cm2 LVAs ap2: 12.6 cm2 LVLs ap4: 5.8 cm LVLs ap2: 6.7 cm ESV(MOD-sp4): 31.6 ml ESV(MOD-sp2): 20.6 ml ESV(sp4-el): 31.6 ml ESV(sp2-el): 19.8 ml EF(MOD-sp4): 53.6 % EF(MOD-sp2): 55.9 % EF(sp4-el): 55.6 % SV(MOD-sp4): 36.6 ml SV(MOD-sp2): 26.2 ml SV(sp4-el): 39.6 ml LA dimension(2D): 3.2 cm LA A4 area: 16.3 cm2 RA A4 area: 12.3 cm2 TAPSE: 2.2 cm Time Measurements MV dec time: 0.26 sec Doppler Measurements & Calculations MV E max braulio: 57.1 cm/sec Lat Peak E' Braulio: 6.3 cm/sec Med Peak E' Braulio: 7.3 cm/sec MV A max braulio: 69.4 cm/sec E/E' lat: 9.1 E/E' med: 7.9 MV E/A: 0.82 MV V2 max: 84.2 cm/sec MV P1/2t max braulio: 65.8 cm/sec Ao V2 max: 104.5 cm/sec MV max P.8 mmHg MV P1/2t: 77.4 msec Ao max P.4 mmHg MV V2 mean: 44.1 cm/sec MV dec slope: 248.9 cm/sec2 Ao V2 mean: 71.5 cm/sec MV mean P.92 mmHg Ao mean P.3 mmHg MV V2 VTI: 18.4 cm MVA(P1/2t): 2.8 cm2 Ao V2 VTI: 23.0 cm AV (velocity ratio): 0.84 LV V1 max: 80.7 cm/sec PA V2 max: 83.0 cm/sec PI dec slope: 201.3 cm/sec2 LV V1 max P.6 mmHg PA V2 mean: 58.2 cm/sec LV V1 mean P.3 mmHg LV V1 mean: 52.7 cm/sec LV V1 VTI: 19.3 cm TR max braulio: 264.1 cm/sec TR max P.9 mmHg ECHO/Echo Complete Interpretation Summary The left ventricular ejection fraction is 60 %. The left atrium is mildly enlarged. Moderate (2+) mitral valve insufficiency. Mild tricuspid valve insufficiency. Right ventricular systolic pressure estimated to be 36 mmHg. Ordering Physician: Alexandrea Valdivia Referring Physician: Cori Brown Performed By: Maria Ines Peñaloza, AMADO, RVT
[2024-03-05 08:35] VITALS: BP 153/74; PULSE 85; RESP 18; TEMP 36.7; O2SAT 100
[2024-03-05] MEDS: Aspirin E.C. 81 MG Tablet PO (08:50)
[2024-03-05] MEDS: Losartan Potassium 50 MG Tablet PO (08:50)
[2024-03-05] MEDS: Carvedilol 3.125 MG TABLET PO (08:50)
[2024-03-05] MEDS: TICAGRELOR 90 MG TABLET PO (08:50)
[2024-03-05] MEDS: Pantoprazole Sodium 40 MG Tablet PO (08:50)
[2024-03-05] MEDS: buPROPion (XL) 300 MG TABLET.XL PO (08:51)
[2024-03-05] MEDS: hydroCHLOROthiazide 25 MG Tablet PO (08:51)
[2024-03-05] MEDS: Enoxaparin 40 MG/0.4 ML Syringe SC (08:57)
--- NOTE | 2024-03-05 13:26 | DS.PCM_ITS ---
Providers Date of Admission: 03/02/24 Date of Discharge: 03/05/24 Primary Care Physician: Dr. Cori Brown MD Consultations 03/04/24 10:46 Consult: Cardiology Routine Consulting Provider: Alexandrea Valdivia Reason for Consult: abnormal stress EMERGENT Consult: No MD Notified: Yes Date Notified: 03/04/24 Time Notified: 10:46 Method of Notification: Verbal Reason For Visit: ATYPICAL CHEST PAIN Diagnosis Discharge Diagnosis (1) CAD (coronary artery disease): Status: Acute Code(s): I25.10 - Atherosclerotic heart disease of [place] coronary artery without angina pectoris (2) Abnormal cardiovascular stress test: Status: Acute Code(s): R94.39 - Abnormal result of other cardiovascular function study (3) Chest pain: Status: Acute Code(s): R07.9 - Chest pain, unspecified Medications at Discharge Home Medications trazodone 100 mg tablet 100 mg PO QHS insomnia 08/17/20 dicyclomine 10 mg capsule 10 mg PO 4X/DAY PRN abdominal pain 03/28/22 lorazepam 0.5 mg tablet 0.5 mg PO QHS PRN sleep 03/28/22 omeprazole 40 mg capsule,delayed release 40 mg PO BID gut 03/28/22 bupropion HCl 300 mg 24 hr tablet, extended release 300 mg PO DAILY anxiety 04/11/22 cholecalciferol (vitamin D3) 50 mcg (2,000 unit) tablet 4,000 unit PO DAILY supplement 04/11/22 biotin 10,000 mcg capsule 5,000 mcg PO DAILY hair 11/06/23 cyanocobalamin (B12)-cobamamide 5,000 mcg-100 mcg sublingual lozenge (B12) 1 rob sublingual DAILY suppliment 11/06/23 levothyroxine 75 mcg tablet 75 mcg PO DAILY thyroid 03/02/24 meloxicam 15 mg tablet 15 mg PO DAILY inflimmation 03/02/24 aspirin 81 mg tablet,delayed release 81 mg PO BREAKFAST #0 tabs 03/05/24 carvedilol 3.125 mg tablet 3.125 mg PO BID #60 tabs 03/05/24 hydrochlorothiazide 25 mg tablet 25 mg PO DAILY #30 tabs 03/05/24 losartan 50 mg tablet 50 mg PO DAILY #30 tabs 03/05/24 pravastatin 40 mg tablet 40 mg PO QHS #30 tabs 03/05/24 ticagrelor 90 mg tablet (Brilinta) 90 mg PO BID #60 tabs 03/05/24 Hospital Course Operations None Procedures 2-D Echocardiogram, Cardiac catheterization, EKG, Stress test and - (Chest x- ray) Summary of Care Provided Minutes Spent on Discharge: 38 Hospital Course: Patient is a 73-year-old white female who presents emergency department at [facility] on 03/02/2020 for complaining of chest pain and a squeezing-like sensation with exertion in her central chest. Retrospectively patient reports she been having symptoms for sometimes and had been attributing them to other things. Symptoms really came to her attention for about a week prior to presentation when she noticed worsening exertional chest pressure and squeezing sensation after walking longer distances. She did have a associated shortness of breath. She admitted to having a 70% right internal carotid artery stenosis and follows with vascular surgery. She reports previous intolerance of statins due to myalgias. She reported that she had some burning sensation in her chest and an EGD was performed and found only mild esophagitis which she thought was the answer to her symptoms but they have slowly been worsening since that point in time. Vital signs on presentation showed temperature of 97.3, heart rate 86, respirate 16, blood pressure 192/95 with a repeat at 184/84 and pulse ox of 98% on room air. CBC showed a mild leukocytosis with white count of 11.6 but was otherwise unremarkable. Chemistry panel was overtly unremarkable. Troponin was 26. BNP was 106.4 and TSH was 0.319. Free T4 was assessed and was within normal limits. EKG showed nonspecific findings and she was admitted to telemetry for cardiac workup. Cardiac enzymes were cycled and unremarkable. Baby aspirin was continued and stress test was ordered. Stress test was noted to be abnormal so she was subsequently taken by cardiology for cardiac catheterization on 03/04/2024 at which time she was found to have a 50% proximal and 95% mid RCA stenosis, 60% proximal LAD stenosis, 40% proximal left circumflex stenosis. PCI with EZEKIEL to mid RCA was performed at that time. She was started on Brilinta, her aspirin was continued, Coreg was added, losartan was initiated and pravastatin was started. Patient did report previous cough with losartan. We did discuss this and she had been on lisinopril previously so she was willing to retry losartan and we did wrote a brief prescription for this prior to discharge. The importance of continuing dual antiplatelet therapy was impressed upon her as well. Medications at discharge were Brilinta, pravastatin, losartan, carvedilol, and aspirin was continued. We decreased her HCTZ from 50 mg to 25 mg daily. Echocardiogram was performed postcardiac catheterization and demonstrated preserved ejection fraction at 60% with a mildly enlarged left atrium, moderate mitral valve insufficiency, mild tricuspid valve insufficiency and a right ventricular systolic pressure of 36 mmHg. She had no significant ectopy post catheterization and was cleared for discharge by cardiology on 03/05/2024. She will follow-up with cardiac rehab after discharge. She already has a follow-up appointment to see Dr. Kam in mid March and will keep this appointment. Prescriptions for her new medications were sent to local pharmacy for a 1 month supply. She was discharged home in stable condition on 03/05/2024. She is to call cardiology if she does not tolerate the losartan or the pravastatin. She is to follow-up with her primary care physician within the next 1 to 2 weeks. Discharge diagnoses: Unstable angina Coronary artery disease Moderate mitral valve insufficiency Mild tricuspid valve insufficiency Essential hypertension Right carotid artery stenosis Hypothyroidism GERD IBS Insomnia Anxiety Remote history of tobacco abuse Physical Exam Const alert, oriented x3, no apparent distress, no limitations, healthy appearing and well nourished Constitutional Narrative: Overweight, older, white female, sitting up in a chair at the bedside, at bedside, appears comfortable, nontoxic General Appearance: cooperative, comfortable, well kempt and well developed Orientation / Consciousness: awake, oriented to person, oriented to place and oriented to time Exam Limitations: no limitations HEENT normocephalic, head/scalp atraumatic, hearing grossly normal bilaterally and moist oral mucous membranes HEENT Narrative: Mallampati 2, no thrush Eyes EOMs intact bilaterally and conjunctivae normal Eyes Narrative: No scleral icterus Neck no lymphadenopathy and supple Neck Narrative: Trachea midline, no thyroid enlargement Resp normal respiratory effort, normal air movement, no retractions, no use of accessory muscles and clear to auscultation bilaterally Auscultation: Negative for rales, rhonchi or wheezes Cardio regular rate, regular rhythm, S1 normal heart sound, S2 normal heart sound, no murmurs, no rub, no gallops and no clicks GI normal to inspection, nondistended, normoactive bowel sounds, soft to palpation and non-tender Extremity no clubbing, cyanosis or edema Extremity Narrative: Pedal pulses are 2+ Skin skin turgor normal and no jaundice Neuro oriented x3, moves all extremities and no focal motor deficits Speech: speech normal Psych thought process normal and cooperative Psych Narrative: Patient interacts appropriately, eye contact is good, less emotionally labile today Appearance: appropriate Weight / BMI Weight Weight: 70.9 kg Body Mass Index (BMI) 29.5 ABG / Lab / Microbiology Data 03/05/24 06:07 03/05/24 06:07 Laboratory: Laboratory Results - last 24 hr 03/05/24 06:07: WBC 9.1, RBC 4.03 L, Hgb 13.0, Hct 37.5, MCV 93.1, MCH 32.3 H, MCHC 34.7, RDW Std Deviation 46.2 H, RDW Coeff of [place] 13.4, Plt Count 280, MPV 9.7, Immature Gran % (Auto) 0.600, Neut % (Auto) 64.0, Lymph % (Auto) 25.0, [place] % (Auto) 8.5, Eos % (Auto) 1.2, Baso % (Auto) 0.7, Absolute Neuts (auto) 5.8, Absolute Lymphs (auto) 2.27, Nucleated RBC % 0, Sodium 137, Potassium 4.3, C hloride 110 H, Carbon Dioxide 24.0, Anion Gap 4 L, BUN 21 H, Creatinine 0.80, Estim Creat Clear Calc 55.55, Est GFR (MDRD) Af Amer 91, Est GFR (MDRD) Non-Af 75, BUN/Creatinine Ratio 26.4 H, Glucose 100, Calcium 9.0, Total Bilirubin 0.50, AST 11 L, ALT 17, Alkaline Phosphatase 58, Total Protein 6.4, Albumin 3.4, Globulin 3.0, Albumin/Globulin Ratio 1.1 Microbiology: Microbiology 03/02/24 22:30 Mucosa - Nasopharyngeal SARS-CoV-2, Influenza & RSV (PCR) - Final Radiography Diagnostic Testing: Radiology Impression Echocardiogram 03/05/24 08:00 Interpretation Summary The left ventricular ejection fraction is 60 %. The left atrium is mildly enlarged. Moderate (2+) mitral valve insufficiency. Mild tricuspid valve insufficiency. Right ventricular systolic pressure estimated to be 36 mmHg. Ordering Physician: Alexandrea Valdivia Referring Physician: Cori Brown Performed By: Maria Ines Peñaloza RDCS, RVT D/C Instructions Discharge Diet: Low fat / Low cholesterol Discharge Activity: Return to Normal Activity Meaningful Use Info Meaningful Use Meaningful Use Diagnoses (Choose all that apply): None applicable Ischemic Stroke Statin Dosing Therapy Reference: STATIN DOSE THERAPY REFERENCE: * Patients > 75 years receive moderate or high dose statin therapy. * Patients 75 years or YOUNGER should receive HIGH intensity statin dose unless contraindicated. You will be required to document reason for non-treatment if statin daily dose does not meet guidelines. HIGH DOSE STATIN THERAPY DAILY Atorvastatin > than or = to 40 mg Rosuvastatin > than or = to 20 mg Amlodipine + Atorvastatin > than or = to 2.5/40 mg Ezetimibe + Simvastatin 10/80 mg Simvastatin 80mg Discharge Plan Admission Admit Date/Time: 03/02/24 14:33 Primary Reason for Your Visit: Chest Pain Attending Provider: Kasandra Hedrick Primary Care Provider: Cori Brown Consulting Providers: Osman Rodgers; Bárbara Beaver; Alexandrea Valdivia Instructions Additional Instructions / Restrictions: 1. It is very important that you continue taking your aspirin and Brilinta unless otherwise instructed by cardiology 2. Please keep your cardiology appointment Dr. Kam in mid March 3. The concession stand attendant, Dr. Valdivia, would like you to try the pravastatin as ordered and monitor for any muscle aches. Discussed with Dr. Kam at your appointment in March 4. Per our discussion we will retry losartan as this really should not cause any cough like SHAHZAD inhibitors can. Monitor for side effects. 5. Please note we have decreased your HCTZ/hydrochlorothiazide from 50 mg to 25 mg daily due to the addition of other medications 6. Given the need for you to be on dual antiplatelet therapy with aspirin and Brilinta, I would strongly recommend avoiding using meloxicam and other nonsteroidal anti-inflammatory drugs such as ibuprofen or naproxen 7. Please follow-up with cardiac rehab as instructed Discharge Orders/Prescriptions Prescriptions: New hydrochlorothiazide 25 mg Tablet 25 mg PO DAILY Qty: 30 0RF losartan 50 mg Tablet 50 mg PO DAILY Qty: 30 0RF pravastatin 40 mg Tablet 40 mg PO QHS Qty: 30 0RF Brilinta 90 mg Tablet 90 mg PO BID Qty: 60 0RF carvedilol 3.125 mg Tablet 3.125 mg PO BID Qty: 60 0RF aspirin 81 mg Tablet,Delayed Release (Dr/Ec) 81 mg PO BREAKFAST Qty: 0 0RF Continued trazodone 100 mg tablet 100 mg PO QHS Patient Comments: TAKE 1 TABLET BY MOUTH DAILY AT BEDTIME. DIRECTED bupropion HCl 300 mg tablet extended release 24 hr 300 mg PO DAILY omeprazole 40 mg capsule,delayed release(DR/EC) 40 mg PO BID Patient Comments: TAKE 1 CAPSULE BY MOUTH TWICE DAILY BEFORE MEALS (0600/1600). lorazepam 0.5 mg tablet 0.5 mg PO QHS PRN (Reason: sleep) Patient Comments: TAKE 1 TABLET BY MOUTH AT BEDTIME NEEDED dicyclomine 10 mg capsule 10 mg PO 4X/DAY PRN (Reason: abdominal pain) Rx Instructions: take 1 capsule by mouth before meals and at bedtime as needed cholecalciferol (vitamin D3) 50 mcg (2,000 unit) tablet 4,000 unit PO DAILY biotin 10,000 mcg capsule 5,000 mcg PO DAILY B12 5,000-100 mcg lozenge 1 rob sublingual DAILY levothyroxine 75 mcg tablet 75 mcg PO DAILY Held meloxicam 15 mg tablet 15 mg PO DAILY Hold Instructions: Would recommend discontinuing this while you are on aspirin and Plavix due to increased risk of bleeding. Would avoid all NSAIDs Discontinued hydrochlorothiazide 50 mg tablet 50 mg PO DAILY Patient Comments: TAKE 1 TABLET BY MOUTH EVERY DAY Referrals / Follow Up: Mick Kam MD [Med Staff - Active Staff] - See Referral Note (As scheduled in March) Cori Brown MD [Primary Care Provider] - Within 1 Week Disposition Disposition (needs filled in before D/C Order can be placed): Home, Self Care Charges/Coding Visit Charges Inpatient E&M: 93583 Disch Hosp >30min
[2024-03-05 13:51] VITALS: BP 153/74; PULSE 85; RESP 18; TEMP 36.7; O2SAT 100
--- NOTE | 2024-03-05 14:24 | CHAPLAIN ---
Type of Pastoral Visit _x__ Initial Visit ___ Follow-up Visit ___ On-call Visit ___ General Patient Visit ___ Spiritual Assessment ___ Family Conference ___ Bereavement ___ Rapid Response ___ Code Blue ___ Other (describe below) Pastoral Care Referral From _x__ Patient ___ Family ___ Nurse ___ Physician ___ Dealer Analyst ___ Counselor Marriage And Family ___ Other (describe below) Sacrament/Intervention _x__ Active listening ___ Anointing ___ Methodist ___ Bereavement ___ Communion _x__ Joselyn exploration ___ _x__ Life review _x__ Prayer ___ Reconciliation ___ Sacrament of Sick ___ Supportive presence ___ Wedding ___ Other (describe below) Pastoral Comments patient had a heart cath and admits that she had worries because my dad at this exact same age from heart issues; pt says that she was shocked to have had this heart issue but will listen to my symptoms more in the future; pt acknowledges that this was a matter of real prayer for her; pt had been raised in the scientology and as an adult had attended a different scientology but has since stopped going due to her schedule of life'; pt acknowledges need for God and for prayer in her life now; pt apologized for being so vulnerable and tearful in the conversation but was affirmed in her expressions and welcomed to receive the spiritual care she needed today; prayer and presence given
--- NOTE | 2024-03-05 14:27 | PHA.DC_ITS ---
Pharmacy [facility] has performed discharge medication reconciliation and counseling for this patient. 1. ASPIRIN 81MG PO DAILY 2. CARVEDILOL 3.125MG PO BID 3. LOSARTAN 50MG PO DAILY 4. PRAVASTATIN 40MG PO QHS 5. TICAGRELOR 90MG PO BID 6. HYDROCHLOROTHIAZIDE DECREASED TO 25MG, HOLD MELOXICAM The patient's discharge medication list was reviewed for discrepancies and discrepancies were resolved. The patient was counseled on the following discharge medications and changes in medications for homegoing were reviewed. The Reason for Use, instructions for use, and potential side effects were reviewed for all new medications. The patient's questions regarding all of their medications were answered. The patient was able to verbally demonstrate an understanding of their discharge medications. Medications at Discharge Home Medications trazodone 100 mg tablet 100 mg PO QHS insomnia 08/17/20 dicyclomine 10 mg capsule 10 mg PO 4X/DAY PRN abdominal pain 03/28/22 lorazepam 0.5 mg tablet 0.5 mg PO QHS PRN sleep 03/28/22 omeprazole 40 mg capsule,delayed release 40 mg PO BID gut 03/28/22 bupropion HCl 300 mg 24 hr tablet, extended release 300 mg PO DAILY anxiety 04/11/22 cholecalciferol (vitamin D3) 50 mcg (2,000 unit) tablet 4,000 unit PO DAILY supplement 04/11/22 biotin 10,000 mcg capsule 5,000 mcg PO DAILY hair 11/06/23 cyanocobalamin (B12)-cobamamide 5,000 mcg-100 mcg sublingual lozenge (B12) 1 rob sublingual DAILY suppliment 11/06/23 levothyroxine 75 mcg tablet 75 mcg PO DAILY thyroid 03/02/24 meloxicam 15 mg tablet 15 mg PO DAILY inflimmation 03/02/24 aspirin 81 mg tablet,delayed release 81 mg PO BREAKFAST #0 tabs 03/05/24 carvedilol 3.125 mg tablet 3.125 mg PO BID #60 tabs 03/05/24 hydrochlorothiazide 25 mg tablet 25 mg PO DAILY #30 tabs 03/05/24 losartan 50 mg tablet 50 mg PO DAILY #30 tabs 03/05/24 pravastatin 40 mg tablet 40 mg PO QHS #30 tabs 03/05/24 ticagrelor 90 mg tablet (Brilinta) 90 mg PO BID #60 tabs 03/05/24
--- NOTE | 2024-03-05 14:35 | CASEMGMT ---
Patient has order for discharge. Patient discharging on Brilinta, JH RUELAS called [facility] and copay is $90. RN CM in to discuss discharge needs with patient. Patient updated regarding cost of Brilinta and would like to use the savings card. Patient denied further needs or concerns. Patient had no further questions. JH RUELAS called [facility] and asked to apply Brilinta savings card.
== END 2024-03-05 15:14 | disposition home or self-care (01) | DRG 322 ==
LOC: ED 14:38 → PCU 15:22
PROVIDERS: Student in an Organized Health Care Education/Training Program; Admitting Provider Internal Medicine; Emergency Provider Surgery; PCP Internal Medicine; Visit Provider Internal Medicine
DX: I25.110 Atherosclerotic heart disease of native coronary artery with unstable angina pectoris (principal); E03.9 Hypothyroidism, unspecified; Z66 Do not resuscitate; I10 Essential (primary) hypertension; I65.21 Occlusion and stenosis of right carotid artery; I08.1 Rheumatic disorders of both mitral and tricuspid valves; F41.9 Anxiety disorder, unspecified; E78.5 Hyperlipidemia, unspecified; K21.9 Gastro-esophageal reflux disease without esophagitis; K58.9 Irritable bowel syndrome, unspecified; G47.00 Insomnia, unspecified; Z79.890 Hormone replacement therapy; Z79.899 Other long term (current) drug therapy; Z86.16 Personal history of COVID-19; Z87.891 Personal history of nicotine dependence
CPT/HCPCS: 36415; 71045; 78452; 80048; 80053; 80061; 83735; 83880; 84443; 84484; 85025; 85347; 85379; 87631; 92928; 93005; 93017; 93306; 93454; 94640; 94668; 99152; 99153; 99285; A9500; J7030; J7040; J7050; Q9967; A4216; C1725; C1769; C1874; C1887; C1894; C9600; J3490

== ENCOUNTER → 2024-03-08 | Outpatient (CLI) | payer MEDICARE, SELFPAY ==
--- OUTSIDE RECORDS SUMMARY | 2024-03-08 07:44 | XMS RPT_ITS | CCD ---
Author Organization [facility] Care Team Providers Care Administrator Health Care Facility Name Role Phone Fiorella Hall MD Primary Care Provider IBAN NAVARRO Referring Unavailable TALAMPAS, FIORELLA D Primary Care Unavailable Fiorella Hall MD Primary Care Provider Fiorella Hall MD Primary Care Provider TALAMPAS, FIORELLA D Attending Unavailable TALAMPAS, FIORELLA D Primary Care Unavailable TALAMPAS, FIORELLA D Primary Care Unavailable TALAMPAS, FIORELLA D Referring Unavailable WESTBROOK, ANNEMARIE D Referring Unavailable WESTBROOK, ANNEMARIE D Attending Unavailable TALAMPAS, FIORELLA D Primary Care Unavailable TALAMPAS, FIORELLA D Primary Care Unavailable TERRENCE, COCO Referring Unavailable TALAMPAS, FIORELLA D Primary Care Unavailable WESTBROOK, ANNEMARIE D Referring Unavailable TALAMPAS, FIORELLA D Primary Care Unavailable TERRENCE, COCO Attending Unavailable TALAMPAS, FIORELLA D Attending Unavailable VASQUES, JEANCARLOS Referring Unavailable TALAMPAS, FIORELLA D Primary Care Unavailable TALAMPAS, FIORELLA D Primary Care Unavailable TALAMPAS, FIORELLA D Referring Unavailable TALAMPAS, FIORELLA D Primary Care Unavailable SELF Referring Unavailable TERRENCE, COCO Attending Unavailable TALAMPAS, FIORELLA D Attending Unavailable TALAMPAS, FIORELLA D Primary Care Unavailable Allergies Allergy Classification Reported Allergen(s) Allergy Type Date of Onset Reaction(s) Facility (20 sources) atorvastatin; Translations: [ATORVASTATIN] Drug Allergy 11-27-2020 Other: See Comments [facility] (20 sources) DULoxetine; Translations: [DULOXETINE] Drug Allergy 08-19-[address] [facility] Work Phone: (20 sources) Lisinopril; Translations: [LISINOPRIL] Drug Allergy 07-04-[address] [facility] Work Phone: (20 sources) Losartan; Translations: [LOSARTAN] Drug Allergy 08-05-[address] [facility] Work Phone: (20 sources) Nizatidine; Translations: [NIZATIDINE] Drug Allergy 03-30-[address] [facility] Work Phone: (20 sources) sibutramine; Translations: [SIBUTRAMINE] Drug Allergy 03-30-[address] [facility] Work Phone: (20 sources) sulfabenzamide; Translations: [SULFABENZAMIDE] Drug Allergy 03-30-[address] [facility] Work Phone: Medications Current Medications Medication Drug Class(es) Dates Sig (Normalized) Sig (Original) aspirin 81 mg delayed release oral tablet (20 sources) Platelet Aggregation Inhibitor, Nonsteroidal Anti-inflammatory Drug Start: 08-25-2020 take 1 tablet by mouth once daily aspirin, enteric coated (ADULT LOW DOSE ASPIRIN) 81 mg EC tablet Take 1 tablet by mouth once daily. 08/25/2020 Active Comment on above: Take 1 tablet by savanah th once daily. 24 hr buPROPion hydrochloride 300 mg extended release oral tablet (20 sources) Aminoketone Start: 07-20-2021 End: 07-20-2022 take 1 tablet by mouth once daily buPROPion XL (WELLBUTRIN XL) 150 mg 24 hr tablet Take 1 tablet by mouth once daily. Add to Wellbutrin XL 300 mg dose 90 tablet 3 07/20/2021 07/20/2022 Discontinued Start: 07-07-2020 End: 07-20-2022 take 1 tablet by mouth once daily buPROPion XL (WELLBUTRIN XL) 300 mg 24 hr tablet Indications: Recurrent major depressive disorder, in full remission (HCC) Take 1 tablet by mouth once daily. 90 tablet 3 07/20/2022 Active Comment on above: Take 1 tablet by savanah th once daily. Add to Wellbutrin XL 300 mg dose Take 1 tablet by savanah th once daily. With 150mg dose Take 1 tablet by savanah th once daily. Calcium Carbonate / vitamin D3 (20 sources) CALCIUM CARBONAT E/VITAMIN D3 (VITAMIN D-3 ORAL) Take by mouth. Active CALCIUM CARBONAT E/VITAMIN D3 (VITAMIN D-3 ORAL) Take by mouth. 0 Active Comment on above: Take by mouth. cholecalciferol 0.05 mg oral capsule (20 sources) Vitamin D Start : 12-22 Cholecalciferol, Vitamin D3, 50 mcg (2,000 unit) cap Consider 4000 to 5000 IU daily 12/23/2019 Active Comment on above: Consider 4000 to 500 0 IU daily ciprofloxacin 500 mg oral tablet (1 source) Quinolone Antimicrobial Start : 01-29 End: 02-05 take 1 tablet by mouth twice daily ciprofloxacin HCl (CIPRO) 500 mg tablet Indications: Acute cystitis without hematuria Take 1 tablet by mouth two times a day for 7 days. 14 tablet 01/30/2024 02/06/2024 Active cyclobenzaprine hydrochloride 10 mg oral tablet (2 sources) Muscle Relaxant Start : 02-06 take 1 tablet by mouth every twenty-four hours as needed cyclobenzaprine (FLEXERIL) 10 mg tablet Take 1 tablet by mouth at bedtime as needed for muscle spasm. 30 tablet 02/07/2024 Active dicyclomine hydrochloride 10 mg oral capsule (20 sources) Anticholinergic Start : 05-01 End: 02-03 take 1 capsule by mouth at bedtime as needed dicyclomine (BENTYL) 10 mg capsule Take 1 capsule by mouth before meals and at bedtime. As needed 90 capsule 1 02/03/2023 Active Comment on above: Take 1 capsule by mo cox branson before meals and at bedtime. As needed hydroCHLOROthiazide 50 mg oral tablet (20 sources) Thiazide Diuretic Start : 09-23 End: 08-06 take 1 tablet by mouth once daily hydroCHLOROthiazide 50 mg tablet Indications: Essential hypertension Take 1 tablet by mouth once daily. 90 tablet 3 08/07/2023 Active Comment on above: Take 1 tablet by savanah once daily. levothyroxine sodium 0.075 mg oral tablet (20 sources) l-Thyroxine Start : 02-06 take 1 tablet by mouth once daily levothyroxine (SYNTHROID) 75 mcg tablet Indications: Acquired hypothyroidism Take 1 tablet by mouth once daily. 90 tablet 3 02/07/2024 Active Start: 02-03-2023 End: 08-07-2023 take 1 tablet by mouth once daily, then take 2 tablets by mouth once daily levothyroxine (SYNTHROID) 50 mcg tablet Indications: Acquired hypothyroidism Take 1 pill by mouth daily 5 days per week and 2 pills daily 2 days per week 120 tablet 3 08/07/2023 Active Start: 01-04-2021 End: 02-03-2023 levothyroxine (SYNTHROID) 75 mcg tablet Indications: Acquired hypothyroidism Take 1 tablet by mouth daily before breakfast. Except 05/16 tab 90 tablet 3 01/14/2022 02/03/2023 Discontinued Comment on above: Take 1 tablet by savanah th daily before breakfast. Except 05/16 tab Mon, Mon and Monday Take 1 tablet by savanah th daily before breakfast. Except 05/16 tab Take 1 pill by mouth daily 5 days per week and 2 pills daily 2 days per week LORazepam 0.5 mg oral tablet (20 sources) Benzodiazepine Start: 01-05-20 End: 02-07-20 LORazepam (ATIVAN) 0.5 mg Indications: Anxiety, generalized Take 1 at bedtime as needed 30 tablet 02/07/2024 02/06/2025 Active Comment on above: Take 1 at bedtime as needed magnesium oxide 400 mg oral tablet (20 sources) Start: 02-04-20 take 1 tablet by mouth once daily magnesium oxide (MAG-OX) 400 mg (241.3 mg magnesium) tablet Indications: Hypomagnesemia Take 1 tablet by mouth once daily. 02/03/2023 Active Start: 06-28-2018 End: 02-03-2023 take 1 tablet by mouth twice daily magnesium oxide (MAG-OX) 400 mg (241.3 mg magnesium) tablet Indications: Hypomagnesemia Take 1 tablet by mouth twice daily for 7 days. 14 tablet 0 06/28/2018 02/03/2023 Discontinued Comment on above: Take 1 tablet by savanah th twice daily for 7 days. Take 1 tablet by savanah th once daily. melatonin 5 mg oral tablet (14 sources) take 1 tablet by mouth once daily at bedtime melatonin 5 mg tablet Take 5 mg by mouth daily at bedtime. Active Comment on above: Take 5 mg by mouth d aily at bedtime. nirmatrelvir tablet 300 mg (150 mg x 2) and ritonavir tablet 100 mg in a dose pack (PAXLOVID) (1 source) Start: End: nirmatrelvir tablet 300 mg (150 mg x 2) and ritonavir tablet 100 mg in a dose pack (PAXLOVID) Indications: COVID-19 virus infection Administer TWO pink nirmatrelvir 150 mg tablets and ONE white ritonavir 100 mg tablet for a total of three tablets twice daily. 30 tablet 0 03/04/2022 03/09/2022 Active Comment on above: Administer TWO pink nirmatrelvir 150 mg tablets and ONE white ritonavir 100 mg tablet for a total of three tablets twice daily. omeprazole 40 mg delayed release oral capsule (20 sources) Proton Pump Inhibitor Start: End: take 1 capsule by mouth twice daily before mealtime omeprazole (PRILOSEC) 40 mg capsule Indications: Gastroesophageal reflux disease without esophagitis Take 1 capsule by mouth twice daily before meals (0600/1600). 180 capsule 3 07/20/2022 Active Comment on above: Take 1 capsule by mo cox branson twice daily before meals (0600/1600). ondansetron 4 mg disintegrating oral tablet (19 sources) Serotonin-3 Receptor Antagonist Start: take 1 tablet by mouth every six hours as needed ondansetron orally disintegrating (ZOFRAN ODT) 4 mg disintegrating tablet Take 1 tablet by mouth every 6 hours as needed for nausea/vomiting. 30 tablet 03/04/2022 Active Comment on above: Take 1 tablet by [facility] every 6 hours as needed for nausea/vomiting. polyethylene glycol 3350 81057 mg powder for oral solution (14 sources) Osmotic Laxative polyethylene gl ycol 3350 17 gram/dose powder Take 17 g by mouth once daily. Dissolve dose in 4 - 8 ounces of liquid and take as directed. Active Comment on above: Take 17 g by mouth o nce daily. Dissolve dose in 4 - 8 ounces of liquid and take as directed. traZODone hydrochloride 100 mg oral tablet (20 sources) Serotonin Reuptake Inhibitor Start: End: take 1 tablet by mouth once daily at bedtime traZODone (DESYREL) 100 mg tablet Indications: Sleep disturbance Take 1 tablet by mouth daily at bedtime. As directed 90 tablet 3 07/20/2022 Active Comment on above: Take 1 tablet by savanah th daily at bedtime. As directed Take 100 mg by mouth daily at bedtime. vit B complex no.12/niacin,B3, (VITAMIN B COMPLEX NO.12-NIACIN ORAL) (20 sources) take 1 tablet by mouth once daily vit B complex no.12/niacin,B3, (VITAMIN B COMPLEX NO.12-NIACIN ORAL) Take 1 tablet by mouth once daily. Active take 1 tablet by mouth once karla y vit B complex no.12/niacin,B3, (VITAMIN B COMPLEX NO.12-NIACIN ORAL) Take 1 tablet by mouth once daily. 0 Active Comment on above: Take 1 tablet by savanah th once daily. 100 ml zoledronic acid 0.05 mg/ml injection (4 sources) Bisphosphonate Start: 04-01-2024 End: 05-01-2024 zoledronic acid 5 mg PREMIX piggyback (RECLAST) Start: 04-19-2023 End: 03-29-2023 zoledronic acid 5 mg PREMIX piggyback (RECLAST) Start: 04-19-2023 End: 05-19-2023 zoledronic acid 5 mg PREMIX piggyback (RECLAST) Completed/Discontinued Medications Medication Drug Class(es) Dates Sig (Normalized) Sig (Original) benzonatate 100 mg oral capsule (4 sources) Non-narcotic Antitussive Start: 03-04-2022 End: 07-20-2022 take 1 capsule by mouth every eight hours as needed benzonatate (TESSALON PERLES) 100 mg capsule Take 1 capsule by mouth three times daily as needed for cough. 30 capsule 0 03/04/2022 07/20/2022 Discontinued Comment on above: Take 1 capsule by mo cox branson three times daily as needed for cough. FA/MV,CA,IRON,MIN/ LYCOPENE/LUT (MULTIVITAL ORAL) (10 sources) End: 07-20-2022 FA/MV,CA,IRON,MIN/ LYCOPENE/LUT (MULTIVITAL ORAL) Take by mouth. 0 07/20/2022 Discontinued FA/MV,CA,IRON,PA N/LYCOPENE/LUT (MULTIVITAL ORAL) Take by mouth. 0 Active Comment on above: Take by mouth. gabapentin 100 mg oral capsule (1 source) Anti-epileptic Agent Start: 01-05-20 End: 07-21-19 take 1 capsule by mouth once daily at bedtime gabapentin (NEURONTIN) 100 mg capsule Indications: Primary osteoarthritis involving multiple joints , Sciatica Take 1 capsule by mouth daily at bedtime. (Dr. Gaffney) 0 01/04/2021 07/20/2021 Discontinued (Other) Comment on above: Take 1 capsule by mo ut daily at bedtime. (Dr. Gaffney) meloxicam 15 mg oral tablet (3 sources) Nonsteroidal Anti-inflammatory Drug Start: 06-20-19 End: 07-21-19 take 1 tablet by mouth once daily as needed meloxicam (MOBIC) 15 mg tablet Indications: Generalized osteoarthrosis, unspecified site Take 1 tablet by mouth once daily as needed. (Dr. Gaffney) 0 06/20/2016 07/20/2021 Discontinued Comment on above: Take 1 tablet by savanah th once daily as needed. (Dr. Gaffney) polyethylene glycol 3350 502602 mg / potassium chloride 2970 mg / sodium bicarbonate 6740 mg / sodium chloride 5860 mg / sodium sulfate 07419 mg powder for oral solution (1 source) Osmotic Laxative Start: 11-09-19 End: 11-09-19 peg 3350-Electrolytes (GOLYTELY) 236-22.74-6.74 -5.86 gram suspension Indications: Screening for colon cancer Take 4,000 mL by mouth one time only for 1 dose. Refer to printed prep instructions from your provider. 4000 mL 0 11/08/2022 11/08/2022 Comment on above: Take 4,000 mL by savanah th one time only for 1 dose. Refer to printed prep instructions from your provider. rosuvastatin calcium 5 mg oral tablet (20 sources) HMG-CoA Reductase Inhibitor Start: 03-27-20 End: 08-07-19 take 1 tablet by mouth once daily at bedtime rosuvastatin (CRESTOR) 5 mg tablet Indications: Hyperlipemia, mixed Take 1 tablet by mouth daily at bedtime. 90 tablet 0 03/27/2021 08/07/2023 Discontinued (Other) Comment on above: Take 1 tablet by savanah th daily at bedtime. Problems Active Problems Problem Classification Problem Date Documented Da te Episodic/Chronic Anxiety disorders (20 sources) Generalized anxiety disorder; Translations: [Generalized anxiety disorder] Onset: 0 06-13-2019 Chronic Diabetes mellitus without complication (1 source) Impaired fasting glycemia; Translations: [Impaired fasting glucose] Episodic Disorders of lipid metabolism (20 sources) Mixed hyperlipidemia; Translations: [Mixed hyperlipidemia] Onset: 6 06-09-2015 Chronic Esophageal disorders (20 sources) Gastroesophageal reflux disease; Translations: [Gastro-esophageal reflux disease without esophagitis] 03-29-2005 Chronic Essential hypertension (20 sources) Essential hypertension; Translations: [Essential (primary) hypertension] Onset: 0 06-13-2019 Chronic Gastritis and duodenitis (1 source) Gastritis; Translations: [Gastritis, unspecified, without bleeding] 01-16-2024 Episodic Immunizations and screening for infectious disease (8 sources) Patient encounter status; Translations: [Encounter for immunization] Episodic Miscellaneous mental health disorders (20 sources) Psychophysiologic insomnia; Translations: [Psychophysiologic insomnia] Onset: 0 06-13-2019 Chronic Mood disorders (20 sources) Recurrent major depressive episodes, moderate ; Translations: [Major depressive disorder, recurrent, moderate] 06-13-2019 Chronic Nonmalignant breast conditions (20 sources) Fibrocystic disease of breast; Translations: [Diffuse cystic mastopathy of unspecified breast] 03-29-2005 Chronic Nutritional deficiencies (20 sources) Vitamin D deficiency; Translations: [Vitamin D deficiency, unspecified] Onset: 8 06-09-2015 Chronic Occlusion or stenosis of precerebral arteries (3 sources) Right carotid artery stenosis; Translations: [Occlusion and stenosis of right carotid artery] Onset: 3 Chronic Osteoarthritis (20 sources) Degenerative joint disease involving multiple joints; Translations: [Polyosteoarthritis, unspecified] 03-29-2005 Chronic Other circulatory disease (13 sources) Disorder of carotid artery; Translations: [Disorder of arteries and arterioles, unspecified] Onset: 3 02-03-2023 Chronic Other gastrointestinal disorders (20 sources) Irritable bowel syndrome; Translations: [Irritable bowel syndrome without diarrhea] 03-29-2005 Chronic Other lower respiratory disease (1 source) Shortness of breath; Translations: [Shortness of breath] Onset: 3 Episodic Other nutritional; endocrine; and metabolic disorders (1 source) Hypomagnesemia; Translations: [Hypomagnesemia] 02-03-2023 Chronic Other nutritional; endocrine; and metabolic disorders (1 source) Hypomagnesemia; Translations: [Hypomagnesemia] Onset: 4 Chronic Other upper respiratory disease (20 sources) Allergic rhinitis; Translations: [Allergic rhinitis, unspecified] 03-29-2005 Chronic Residual codes; unclassified (2 sources) Disturbance in sleep behavior; Translations: [Sleep disorder, unspecified] Episodic Residual codes; unclassified (1 source) Postmenopausal state; Translations: [Asymptomatic menopausal state] 02-03-2023 Episodic Spondylosis; intervertebral disc disorders; other back problems (20 sources) Sciatica; Translations: [Sciatica, unspecified side] Onset: 8 10-06-2005 Episodic Thyroid disorders (20 sources) Hypothyroidism; Translations: [Hypothyroidism, unspecified] Onset: 6 06-09-2015 Chronic Unclassified (1 source) Same Day Appointment Onset: 4 Urinary tract infections (1 source) Acute cystitis; Translations: [Acute cystitis without hematuria] 01-30-2024 Episodic Varicose veins of lower extremity (2 sources) Varicose veins of lower extremity; Translations: [Varicose veins of bilateral lower extremities with other complications] Episodic Viral infection (1 source) Disease caused by 2019-nCoV; Translations: [COVID-19] Episodic Past or Other Problems Problem Classification Problem Date Documented Da te Episodic/Chronic Abdominal pain (20 sources) Right lower quadrant pain; Translations: [Right lower quadrant pain] Onset: 06-13-2019 06-13-2019 Episodic Noninfectious gastroenteritis (20 sources) Noninfective gastroenteritis and colitis, unspecified; Translations: [Other and unspecified noninfectious gastroenteritis and colitis] Onset: 04-09-2014 Episodic Other aftercare (1 source) Other termite treater (current) drug therapy; Translations: [Encounter for long-term current use of medication] Onset: 08-03-2023 Episodic Other and unspecified benign neoplasm (20 sources) Lipoma (clinical); Translations: [Benign lipomatous neoplasm, unspecified] Onset: 02-09-2010 02-09-2010 Episodic Other bone disease and musculoskeletal deformities (20 sources) Disorder of skeletal system; Translations: [Disorder of bone, unspecified] Onset: 05-15-2003 03-29-2005 Episodic Other connective tissue disease (20 sources) Triggering of digit; Translations: [Trigger finger, unspecified finger] Onset: 08-19-2009 08-19-2009 Episodic Other diseases of kidney and ureters (20 sources) Parapelvic renal cyst; Translations: [Cyst of kidney, acquired] Onset: 01-14-2014 05-10-2021 Episodic Other gastrointestinal disorders (16 sources) Constipation; Translations: [Constipation, unspecified] Onset: 11-28-2022 Episodic Other nutritional; endocrine; and metabolic disorders (7 sources) Obesity; Translations: [Obesity, unspecified] Resolved: 07-20-2021 07-20-2021 Chronic Results Test Name Value Interpretation Reference Range Facility [facility] 02-07-[address] [facility] Telephone (INTM[facility]) -------- AMINA TOBAR ([id number]) 1950 F NFR Date Time Provider Department 02/07/24 [facility] [place] today, we recorded the following information about you: Deana Mobley LPN 02/07/2024 9:27 AM Signed Patient is needing scheduled for a Reclast infusion on or after 03/30/24. Please call and assist with scheduling. Shaniqua Trevino 02/07/2024 11:39 AM Signed I called and spoke to Amy and scheduled her for her reclast infusion for 04/03/24 @ 10:00 am, patient confirmed this date, time and location. Shaniqua Sobia Neumann Allergies As of Date: 02/07/2024 Noted Allergy Reaction AXID (NIZATIDINE) 03/30/2005 4 - Hives CYMBALTA (DULOXETINE) 08/19/2009 Comments: Insomnia LIPITOR (ATORVASTATIN) 11/27/2020 14 - Other: See Comments Comments: Insomnia, headache and nausea LISINOPRIL 07/04/2018 3 - Cough Comments: cough with vomiting LOSARTAN 08/05/2019 3 - Cough MERIDIA (SIBUTRAMINE) 03/30/2005 2 - Rash SULFABENZAMIDE 03/30/2005 5 - Intolerance Comments: red mouth; sulfa med caused adverse effect Date Reviewed: 02/07/2024 Reviewed by: Deana Mobley LPN - Fully Assessed Reason for Visit: Appointment [[id number]] Prescriptions as of 02/07/2024 - LORazepam (ATIVAN) 0.5 mg Take 1 at bedtime as needed - meloxicam (MOBIC) 15 mg tablet Take 15 mg by mouth once daily as needed for pain. - levothyroxine (SYNTHROID) 75 mcg tablet Take 1 tablet by mouth once daily. - cyclobenzaprine (FLEXERIL) 10 mg tablet Take 1 tablet by mouth at bedtime as needed for muscle spasm. - hydroCHLOROthiazide 50 mg tablet Take 1 tablet by mouth once daily. - dicyclomine (BENTYL) 10 mg capsule Take 1 capsule by mouth before meals and at bedtime. As needed - magnesium oxide (MAG-OX) 400 mg (241.3 mg magnesium) tablet Take 1 tablet by mouth once daily. - polyethylene glycol 3350 17 gram/dose powder Take 17 g by mouth once daily. Dissolve dose in 4 - 8 ounces of liquid and take as directed. - melatonin 5 mg tablet Take 5 mg by mouth daily at bedtime. - omeprazole (PRILOSEC) 40 mg capsule Take 1 capsule by mouth twice daily before meals (0600/1600). - traZODone (DESYREL) 100 mg tablet Take 1 tablet by mouth daily at bedtime. As directed - buPROPion XL (WELLBUTRIN XL) 300 mg 24 hr tablet Take 1 tablet by mouth once daily. - ondansetron orally disintegrating (ZOFRAN ODT) 4 mg disintegrating tablet Take 1 tablet by mouth every 6 hours as needed for nausea/vomiting. - vit B complex no.12/niacin,B3, (VITAMIN B COMPLEX NO.12-NIACIN ORAL) Take 1 tablet by mouth once daily. - aspirin, enteric coated (ADULT LOW DOSE ASPIRIN) 81 mg EC tablet Take 1 tablet by mouth once daily. - Cholecalciferol, Vitamin D3, 50 mcg (2,000 unit) cap Consider 4000 to 5000 IU daily - CALCIUM CARBONATE/VITAMIN D3 (VITAMIN D-3 ORAL) Take by mouth. Facility-Administered Medications as of 02/07/2024 - zoledronic acid 5 mg PREMIX piggyback (RECLAST) Problem List As Of Date 02/07/2024 Noted Resolved GENERAL OSTEOARTHROSIS [M15.9] BONE AND CARTILAGE DIS NOS [M89.9, M94.9] 05/15/2003 DIFFUS CYSTIC MASTOPATHY [N60.19] IRRITABLE COLON [K58.9] Obesity, unspecified [E66.9] 07/20/2021 Moderate episode of recurrent major depressive * ALLERGIC RHINITIS NOS [J30.9] ESOPHAGEAL REFLUX [K21.9] Hypothyroidism [E03.9] SCIATICA [M54.30] Hyperlipemia, mixed [E78.2] 03/28/2006 SPINAL STENOSIS-LUMBAR [M48.061] 10/04/2007 Vitamin D deficiency [E55.9] 04/08/2008 Trigger Finger, left ring finger [M65.30] 08/19/2009 Lipoma of Unspecified Site [D17.9] 02/09/2010 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] 01/14/2014 Other and unspecified noninfectious gastroenter*04/09/2014 Essential hypertension [I10] 06/13/2019 Anxiety, generalized [F41.1] 06/13/2019 Abdominal pain, RLQ [R10.31] 06/13/2019 Psychophysiological insomnia [F51.04] 06/13/2019 Constipation [K59.00] 11/28/2022 Disorder of carotid artery (HCC) [I77.9] 02/03/2023 Encounter Status:Closed by SHANIQUA TREVINO on 02/07/24 Normal [facility] 25(OH)D3 [place] 2023 25-hydroxyvitamin D3 [Mass/Vol] 35.7 ng/mL Normal 31.0-80.0 [facility] Comment on above: Order Comment: Speci men Type: BLOOD SPECIMENOrdering Facility: [facility] Address: [address] [place] [id number] Result Comment: Clas sification of 25 OH Vitamin D status: Deficiency/Insufficiency: < or = 30 ng/ml. Sufficiency/Optimal Levels: 31-80 ng/mL Toxicity: > 100 ng/mL. Test performed by chemiluminescent immunoassay. Performed By: #### 1 989-3 ####[facility] [id number] [place] [address] [place] CBC panel Auto (Bld)on 02-01 Erythrocyte distribution width (RBC) [Ratio] 12.5 % Normal 11.5-15.0 [facility] Comment on above: Order Comment: Speci men Type: BLOOD SPECIMENOrdering Facility: [facility] Address: [address] [place] [address] Performed By: #### 5 8410-2 ####[facility] [id number] [place] [address] [place] Hematocrit (Bld) [Volume fraction] 39.0 % Normal 36.0-46.0 [facility] Comment on above: Order Comment: Speci men Type: BLOOD SPECIMENOrdering Facility: [facility] Address: [address] [place] [address] Performed By: #### 5 8410-2 ####[facility] [id number] [place] [address] [place] Hemoglobin (Bld) [Mass/Vol] 13.5 g/dL Normal 11.5-15.5 [facility] Comment on above: Order Comment: Speci men Type: BLOOD SPECIMENOrdering Facility: [facility] Address: [address] [place] [address] Performed By: #### 5 8410-2 ####[facility] [id number] [place] [address] [place] [place] MCH (RBC) [Entitic mass] 31.3 pg Normal 26.0-34.0 [facility] Comment on above: Order Comment: Speci men Type: BLOOD SPECIMENOrdering Facility: [facility] Address: [address] [place] [address] Performed By: #### 5 8410-2 ####[facility] JHONATAN [id number] [address] MCHC (RBC) [Mass/Vol] 34.6 g/dL Normal 30.5-36.0 [facility] Comment on above: Order Comment: Speci men Type: BLOOD SPECIMENOrdering Facility: [facility] Address: [address] [place] [address] Performed By: #### 5 8410-2 ####[facility]ERNCSHANA [id number] [place] [address] [place] MCV (RBC) [Entitic vol] 90.3 fL Normal 80.0-100.0 [facility] Comment on above: Order Comment: Speci men Type: BLOOD SPECIMENOrdering Facility: [facility] Address: [address] [place] [address] Performed By: #### 5 8410-2 ####[facility]ENTERNCCHELLYA [id number] [place] [address] [place] Nucleated RBC (Bld) [#/Vol] 10*3/uL Normal <0.01 [facility] Comment on above: Order Comment: Speci men Type: BLOOD SPECIMENOrdering Facility: [facility] Address: [address] [place] [address] Performed By: #### 5 8410-2 ####[facility]ENTERNCLIA [id number] [place] [address] [place] Platelet mean volume (Bld) [Entitic vol] 9.4 fL Normal 9.0-12.7 [facility] Comment on above: Order Comment: Speci men Type: BLOOD SPECIMENOrdering Facility: [facility] Address: [address] [place] [address] Performed By: #### 5 8410-2 ####[facility] SYSTEMWNCLIA [id number] [place] [address] [place] Platelets (Bld) [#/Vol] 267 10*3/uL Normal 150-400 [facility] Comment on above: Order Comment: Speci men Type: BLOOD SPECIMENOrdering Facility: [facility] Address: [address] [place] [address] Performed By: #### 5 8410-2 ####[facility]ENTERNCLIA [id number] [place] [address] [place] RBC (Bld) [#/Vol] 4.32 10*6/uL Normal 3.90-5.20 [facility] Comment on above: Order Comment: Speci men Type: BLOOD SPECIMENOrdering Facility: [facility] Address: [address] [place] [address] Performed By: #### 5 8410-2 ####[facility]ITALA [id number] [place] [address] [place] WBC (Bld) [#/Vol] 4.82 10*3/uL Normal 3.70-11.00 [facility] Comment on above: Order Comment: Speci men Type: BLOOD SPECIMENOrdering Facility: [facility] Address: [address] [place] [address] Performed By: #### 5 8410-2 ####[facility]ENTERNCLIA [id number] [place] [address] [place] Comprehensive metabolic 2000 panelon 02-02-2024 Albumin [Mass/Vol] 4.0 g/dL Normal 3.9-4.9 [facility] Comment on above: Order Comment: Speci men Type: BLOOD SPECIMENOrdering Facility: [facility] Address: [address] [place] [address] Performed By: #### 1 9123-9, 23616-8 ####[facility]ENTERNCLIA [id number] [place] [address] [place] ALP [Catalytic activity/Vol] 55 U/L Normal 34-123 [facility] Comment on above: Order Comment: Speci men Type: BLOOD SPECIMENOrdering Facility: [facility] Address: [address] [place] [address] Performed By: #### 1 9123-9, 92026-8 ####[facility] JOANNEWNCLIA [id number] [place] [address] [place] ALT [Catalytic activity/Vol] 12 U/L Normal 7-38 [facility] Comment on above: Order Comment: Speci men Type: BLOOD SPECIMENOrdering Facility: [facility] Address: [address] [place] [address] Performed By: #### 1 9123-9, 92820-6 ####[facility] CENTERDIANALIA [id number] [place] [address] [place] Anion gap [Moles/Vol] 12 mmol/L Normal 8-15 [facility] Comment on above: Order Comment: Speci men Type: BLOOD SPECIMENOrdering Facility: [facility] Address: [address] [place] [address] Performed By: #### 1 9123-9, 73853-0 ####[facility] SHANDRAWESTWOODDIANALIA [id number] [place] [address] [place] AST [Catalytic activity/Vol] 20 U/L Normal 13-35 [facility] Comment on above: Order Comment: Speci men Type: BLOOD SPECIMENOrdering Facility: [facility] Address: [address] [place] [address] Performed By: #### 1 9123-9, 65132-0 ####[facility]ENTERNCLIA [id number] [place] [address] [place] Bilirubin [Mass/Vol] 0.4 mg/dL Normal 0.2-1.3 [facility] Comment on above: Order Comment: Speci men Type: BLOOD SPECIMENOrdering Facility: [facility] Address: [address] [place], [place] [address] Performed By: #### 1 9123-9, 81698-0 ####[facility] SYSTEMWMELIA [id number] [place] [address] [place] Calcium [Mass/Vol] 9.2 mg/dL Normal 8.5-10.2 [facility] Comment on above: Order Comment: Speci men Type: BLOOD SPECIMENOrdering Facility: [facility] Address: [address] [place] [address] Performed By: #### 1 9123-9, 54722-6 ####[facility] CENTERDIANALIA [id number] [place] [address] [place] Chloride [Moles/Vol] 104 mmol/L Normal 98-107 [facility] Comment on above: Order Comment: Speci men Type: BLOOD SPECIMENOrdering Facility: [facility] Address: [address] [place] [address] Performed By: #### 1 9123-9, 13098-8 ####[facility] HOSPITALLIA [id number] [place] [address] [place] CO2 [Moles/Vol] 21 mmol/L Low 22-30 [facility] Comment on above: Order Comment: Speci men Type: BLOOD SPECIMENOrdering Facility: [facility] Address: [address] [place] [address] Performed By: #### 1 9123-9, 83347-7 ####[facility] HOSPITALLIA [id number] [place] [address] [place] Creatinine [Mass/Vol] 0.84 mg/dL Normal 0.58-0.96 [facility] Comment on above: Order Comment: Speci men Type: BLOOD SPECIMENOrdering Facility: [facility] Address: [address] [place], [place] [address] Performed By: #### 1 9123-9, 65764-1 ####[facility]ENTERNCLIA [id number] [place] [address] [place] Creatinine and Glomerular filtration rate.predicted panel (S/P/Bld) 73 mL/min/1.73m??? Normal >=60 [facility] Comment on above: Order Comment: Kendall rojo Type: BLOOD SPECIMENOrdering Facility: [facility] Address: [address] [place] [address] Result Comment: Patricia mated Glomerular Filtration Rate (eGFR) is calculated using the 2020 CKD-EPI creatinine equation. This equation utilizes serum creatinine, sex, and age as parameters. The creatinine assay has traceable calibration to isotope dilution-mass spectrometry. Refer to KDIGO guidelines for clinical interpretation. In patients with unstable renal function, e.g. those with acute kidney injury, the eGFR may not accurately reflect actual GFR. Performed By: #### 1 9123-9, 18394-2 ####[facility]PITALA [id number] [place] [address] [place] Glucose [Mass/Vol] 121 mg/dL High 74-99 [facility] Comment on above: Order Comment: Kendall rojo Type: BLOOD SPECIMENOrdering Facility: [facility] Address: [address] [place] [address] Result Comment: The [place] Diabetes Association (ADA) provides guidance for cutoff values for fasting glucose and random glucose. The ADA defines fasting as no caloric intake for at least 8 hours. Fasting plasma glucose results between 100 to 125 [...] Standards of Medical Care in Diabetes 2016, [place] Diabetes Association. Diabetes Care. 2016.39(Suppl 1). Performed By: #### 1 9123-9, 09029-8 ####[facility] SHANDRAHENRY [id number] [place] [address] [place] Potassium [Moles/Vol] 3.7 mmol/L Normal 3.7-5.1 [facility] Comment on above: Order Comment: Speci men Type: BLOOD SPECIMENOrdering Facility: [facility] Address: [address] [place] [address] Performed By: #### 1 9123-9, 02008-3 ####[facility] CENTERSHANITA [id number] [place] [address] [place] Protein [Mass/Vol] 6.2 g/dL Low 6.3-8.0 [facility] Comment on above: Order Comment: Speci men Type: BLOOD SPECIMENOrdering Facility: [facility] Address: [address] [place] [address] Performed By: #### 1 9123-9, 53723-7 ####[facility] CENTERSHANITA [id number] [place] [address] [place] Sodium [Moles/Vol] 137 mmol/L Normal 136-144 [facility] Comment on above: Order Comment: Speci men Type: BLOOD SPECIMENOrdering Facility: [facility] Address: [address] [place] [address] Performed By: #### 1 9123-9, 09624-8 ####[facility] CENTERDIANALIA [id number] [place] [address] [place] Urea nitrogen [Mass/Vol] 10 mg/dL Normal 7-21 [facility] Comment on above: Order Comment: Speci men Type: BLOOD SPECIMENOrdering Facility: [facility] Address: [address] [place] [address] Performed By: #### 1 9123-9, 78611-8 ####[facility] DARIO MILLTOWNCLIA [id number] [place] [id number] [place] Magnesium SerPl-mCncon 02-01 Magnesium [Mass/Vol] 1.6 mg/dL Low 1.7-2.3 [facility] Comment on above: Order Comment: Speci men Type: BLOOD SPECIMENOrdering Facility: [facility] Address: [address] [place] [address] Performed By: #### 1 9123-9, 47109-3 ####[facility] MILLTOWNCLIA [id number] [place] [address] [place] T3Free SerPl-mCncon 02-02-20 Free T3 [Mass/Vol] 2.6 pg/mL Normal 2.3-4.1 [facility] Comment on above: Order Comment: Speci men Type: BLOOD SPECIMENOrdering Facility: [facility] Address: [address] [place] [address] Performed By: #### 3 051-0, 3024-7 ####[facility] MED[facility] CENTERIA [id number] [place] [address] [place] T4 Free SerPl-mCncon 024 Free T4 [Mass/Vol] 1.3 ng/dL Normal 0.9-1.7 [facility] Comment on above: Order Comment: Speci men Type: BLOOD SPECIMENOrdering Facility: [facility] Address: [address] [place] [address] Performed By: #### 3 051-0, 3024-7 ####[facility] MED[facility] CENTERIA [id number] [place] [address] [place] TSH SerPl-aCncon 02-02-2024 TSH Qn 6.800 m[IU]/L High 0.270-4.200 [facility] Comment on above: Order Comment: Speci men Type: BLOOD SPECIMENOrdering Facility: [facility] Address: [address], [place] [address] Performed By: #### 3 016-3 ####[facility] DAVIDA [id number] [address] [id number] [address] [place] CNOVon 01-30-2024 CNOV Office Visit (INTMWS ) -------- AMINA TOBAR ([id number]) 1950 F NFR Date Time Provider Department 01/30/24 11:20 AM COCO OCAMPO INTMWS During your visit today, we recorded the following information about you: Temperature Pulse Blood pressure Weight 98.2 degrees 79/minute 140/72 70.8 kg Elo Christianson LPN 01/30/2024 11:06 AM Signed Urinary Problem-When to Seek Help? Symptoms of a urinary problem may lead to a?bladder?infection. Women are at greater risk of a urinary tract infection than are men. Most urinary tract infections in women are caused by bacteria and involve the lower urinary tract including the bladder and urethra. Symptoms: Pain or burning when passing urine, urgency, frequency, blood in the urine, difficult emptying your bladder, and lower abdominal fullness or pressure. Common Causes: Sexual intercourse, menopause, constipation, uncontrolled diabetes, dehydration and feminine products such as tampons, and kidney stones. When to Get Help: Seek medical attention if you get frequent bladder infections, urinary concerns such as leakage, blood in the urine or frequent need to urinate. You may be recommended to get help from a specialist, such as a urologist. Diagnosis AND Treatment: Lab testing may include: urinalysis, and urine culture that can be collected in the lab or walk-in clinic. Most bladder infections can easily be treated. A physician, nurse practitioner or physician fitness assistant may treat with a short course of an antibiotic. Delaying treatment can lead to worsening symptoms, like a kidney infection. Self-Care: Avoid a full bladder, bubble baths, bath oils, food and beverages that may irritate the bladder such as caffeine. Avoid spermicide foam and diaphragms Void before and after sexual intercourse Wipe front to back after using the bathroom. Stay hydrated Stop Smoking Follow-up Care: Follow up testing is not needed in healthy young women if symptoms resolve. Coco Ocampo APRN.RICO 01/30/2024 11:48 AM Signed SUBJECTIVE Amina Tobar is a 73 year old female here today for acute concern. Chief Complaint Patient presents with: UTI: symptoms of fatigue started last week but this am she wipe and saw some pink on the toilet paper and floating in toilet. Does complain of burning Has been having mid back pain HPI Amina Tobar is a 73 year old female. She is an established patient of Fiorella Hall MD. Here today acutely for concerns of a possible UTI. Symptoms with an onset of about a week ago. Associated symptoms of fatigue, maybe hematuria, burning, mid-back pain. Not improving. Her medications were reviewed today and her list is now up to date. Medications Current Outpatient Medications Medication Sig ciprofloxacin HCl (CIPRO) 500 mg tablet Take 1 tablet by mouth two times a day for 7 days. hydroCHLOROthiazide 50 mg tablet Take 1 tablet by mouth once daily. LORazepam (ATIVAN) 0.5 mg Take 1 at bedtime as needed levothyroxine (SYNTHROID) 50 mcg tablet Take 1 pill by mouth daily 5 days per week and 2 pills daily 2 days per week dicyclomine (BENTYL) 10 mg capsule Take 1 capsule by mouth before meals and at bedtime. As needed magnesium oxide (MAG-OX) 400 mg (241.3 mg magnesium) tablet Take 1 tablet by mouth once daily. polyethylene glycol 3350 17 gram/dose powder Take 17 g by mouth once daily. Dissolve dose in 4 - 8 ounces of liquid and take as directed. melatonin 5 mg tablet Take 5 mg by mouth daily at bedtime. omeprazole (PRILOSEC) 40 mg capsule Take 1 capsule by mouth twice daily before meals (0600/1600). traZODone (DESYREL) 100 mg tablet Take 1 tablet by mouth daily at bedtime. As directed buPROPion XL (WELLBUTRIN XL) 300 mg 24 hr tablet Take 1 tablet by mouth once daily. ondansetron orally disintegrating (ZOFRAN ODT) 4 mg disintegrating tablet Take 1 tablet by mouth every 6 hours as needed for nausea/vomiting. vit B complex no.12/niacin,B3, (VITAMIN B COMPLEX NO.12-NIACIN ORAL) Take 1 tablet by mouth once daily. aspirin, enteric coated (ADULT LOW DOSE ASPIRIN) 81 mg EC tablet Take 1 tablet by mouth once daily. Cholecalciferol, Vitamin D3, 50 mcg (2,000 unit) cap Consider 4000 to 5000 IU daily CALCIUM CARBONATE/VITAMIN D3 (VITAMIN D-3 ORAL) Take by mouth. No current facility-administered medications for this visit. ALLERGIES Allergen Reactions Axid [Nizatidine] Hives Cymbalta [Duloxetin* Insomnia Lipitor [Atorvastat* Other: See Comments Insomnia, headache and nausea Lisinopril Cough cough with vomiting Losartan Cough Meridia [Sibutramin* Rash Sulfabenzamide Intolerance red mouth; sulfa med caused adverse effect ACTIVE PROBLEM LIST Disorder of Carotid Artery (Hcc) - 02/03/2023 Constipation - 11/28/2022 Essential Hypertension - 06/13/2019 Anxiety, Generalized - 06/13/2019 Abdominal Pain, Rlq - (more content not included)... Normal [facility] UA DIP, URINE (POC)on 2023 BILIRUBIN UA (POCT) Negative Negative [facility] CLARITY UA (POCT) Clear [facility] COLOR UA (POCT) Yellow [facility] GLUCOSE UA (POCT) Negative Negative mg/dL [facility] Hemoglobin Ql (U) Negative Negative [facility] Interpretation and review of laboratory results Abnormal [facility] KETONE UA (POCT) Negative Negative mg/dL [facility] LEUKOCYTES UA (POCT) Trace Abnormal Negative [facility] NITRITE UA (POCT) Negative Negative [facility] PH UA (POCT) 7.0 4.5 - 8.[address] [facility] Protein Ql (U) Negative Negative mg/dL [facility] SPECIFIC GRAVITY UA (POCT) 1.020 1.005 - 1.[address] [facility] UROBILINOGEN UA (POCT) 0.2 Normal E.U./dL [facility] Location:[facility], [address] [place] [address], [place], [place], [id number] [place] [address] [facility] Office Visit (INTMWS ) -------- AMINA TOBAR ([id number]) 1950 F NFR Date Time Provider Department 12/04/23 10:40 AM FIORELLA HALL INTMWS During your visit today, we recorded the following information about you: Fiorella Hall MD 01/16/2024 11:09 PM Signed This note was created using StepOut. Subjective Amina Tobar is a 72 year old female. No chief complaint on file. SUBJECTIVE: Amina Tobar is a 72 year old year old lady here today for follow up appointment for review of medical conditions. Gastritis seen on EGD. Gets bloating and pain upper abdomen. Feels like just sits in stomach. Stopped carafate that was causing constipation. Chronic RUQ pain that had seen Dr. Sims before. Told to stop calcium. See assessment and plan for other issues addressed. 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 LORazepam (ATIVAN) 0.5 mg Take 1 at bedtime as needed levothyroxine (SYNTHROID) 50 mcg tablet Take 1 pill by mouth daily 5 days per week and 2 pills daily 2 days per week dicyclomine (BENTYL) 10 mg capsule Take 1 capsule by mouth before meals and at bedtime. As needed magnesium oxide (MAG-OX) 400 mg (241.3 mg magnesium) tablet Take 1 tablet by mouth once daily. polyethylene glycol 3350 17 gram/dose powder Take 17 g by mouth once daily. Dissolve dose in 4 - 8 ounces of liquid and take as directed. melatonin 5 mg tablet Take 5 mg by mouth daily at bedtime. omeprazole (PRILOSEC) 40 mg capsule Take 1 capsule by mouth twice daily before meals (0600/1600). traZODone (DESYREL) 100 mg tablet Take 1 tablet by mouth daily at bedtime. As directed buPROPion XL (WELLBUTRIN XL) 300 mg 24 hr tablet Take 1 tablet by mouth once daily. ondansetron orally disintegrating (ZOFRAN ODT) 4 mg disintegrating tablet Take 1 tablet by mouth every 6 hours as needed for nausea/vomiting. vit B complex no.12/niacin,B3, (VITAMIN B COMPLEX NO.12-NIACIN ORAL) Take 1 tablet by mouth once daily. aspirin, enteric coated (ADULT LOW DOSE ASPIRIN) 81 mg EC tablet Take 1 tablet by mouth once daily. Cholecalciferol, Vitamin D3, 50 mcg (2,000 unit) cap Consider 4000 to 5000 IU daily CALCIUM CARBONATE/VITAMIN D3 (VITAMIN D-3 ORAL) Take by mouth. No current facility-administered medications for this visit. Review of Systems Objective There were no vitals taken for this visit. Physical Exam Constitutional: Appearance: Normal appearance. HENT: Head: Normocephalic. Eyes: Conjunctiva/sclera: Conjunctivae normal. Cardiovascular: Rate and Rhythm: Normal rate and regular rhythm. Heart sounds: Normal heart sounds. Pulmonary: Effort: Pulmonary effort is normal. Breath sounds: Normal breath sounds. Skin: General: Skin is warm and dry. Neurological: General: No focal deficit present. Mental Status: She is alert and oriented to person, place, and time. Psychiatric: Mood and Affect: Mood normal. Behavior: Behavior normal. Thought Content: Thought content normal. Judgment: Judgment normal. Assessment and Plan Encounter Diagnosis ICD-10-CM 1. Gastritis determined by endoscopy K29.70 Reviewed results of EGD and med management; see patient instructions 2. Chronic RUQ pain R10.11 G89.29 Noted prior evaluation. Discussed may be due to gastriitis and constipation issues. Further evaluation and treatment as indicated 3. Constipation, unspecified constipation type K59.00 exacerbated by carafate; see patient instructions Above issues addressed with patient. Patient involved in shared decision making for management of medical issues. History and medications reviewed. Epic updated as needed Refills and/or prescriptions taken care of and meds adjusted as indicated after reviewed history, exam and labs. Health Maintenance reviewed. Updated record and/or ordered tests as recorded. Encouraged on efforts at healthy diet and regular exercise and adequate sleep. See patient instructions. Further evaluation and treatment as indicated. MD Kevin Gilbert Liza D, MD 12/04/2023 12:05 PM Signed Gas X up to 125 mg up to 4 times daily Miralax in AM Metamucil in (more content not included)... Normal [facility] 12-04-2023 CNPN Telephone (INTMWS) -------- AMINA TOBAR ([id number]) 1950 F NFR Date Time Provider Department 12/04/23 FIORELLA HALL INTMWS During your visit today, we recorded the following information about you: Ashley Mack RN 12/04/2023 10:02 AM Signed Patient calls and states that she has had GI issues since she had endoscopy done 4 weeks ago. Patient has been having nausea and some abdominal discomfort after she eats. Patient scheduled with Dr. Hall today to discuss. Ashley Mack RN Allergies As of Date: 12/04/2023 Noted Allergy Reaction AXID (NIZATIDINE) 03/30/2005 4 - Hives CYMBALTA (DULOXETINE) 08/19/2009 Comments: Insomnia LIPITOR (ATORVASTATIN) 11/27/2020 14 - Other: See Comments Comments: Insomnia, headache and nausea LISINOPRIL 07/04/2018 3 - Cough Comments: cough with vomiting LOSARTAN 08/05/2019 3 - Cough MERIDIA (SIBUTRAMINE) 03/30/2005 2 - Rash SULFABENZAMIDE 03/30/2005 5 - Intolerance Comments: red mouth; sulfa med caused adverse effect Date Reviewed: 08/07/2023 Reviewed by: Courtney Scales MA - Fully Assessed Reason for Visit: Patient Update [1234] Prescriptions as of 12/04/2023 - hydroCHLOROthiazide 50 mg tablet Take 1 tablet by mouth once daily. - LORazepam (ATIVAN) 0.5 mg Take 1 at bedtime as needed - levothyroxine (SYNTHROID) 50 mcg tablet Take 1 pill by mouth daily 5 days per week and 2 pills daily 2 days per week - dicyclomine (BENTYL) 10 mg capsule Take 1 capsule by mouth before meals and at bedtime. As needed - magnesium oxide (MAG-OX) 400 mg (241.3 mg magnesium) tablet Take 1 tablet by mouth once daily. - polyethylene glycol 3350 17 gram/dose powder Take 17 g by mouth once daily. Dissolve dose in 4 - 8 ounces of liquid and take as directed. - melatonin 5 mg tablet Take 5 mg by mouth daily at bedtime. - omeprazole (PRILOSEC) 40 mg capsule Take 1 capsule by mouth twice daily before meals (0600/1600). - traZODone (DESYREL) 100 mg tablet Take 1 tablet by mouth daily at bedtime. As directed - buPROPion XL (WELLBUTRIN XL) 300 mg 24 hr tablet Take 1 tablet by mouth once daily. - ondansetron orally disintegrating (ZOFRAN ODT) 4 mg disintegrating tablet Take 1 tablet by mouth every 6 hours as needed for nausea/vomiting. - vit B complex no.12/niacin,B3, (VITAMIN B COMPLEX NO.12-NIACIN ORAL) Take 1 tablet by mouth once daily. - aspirin, enteric coated (ADULT LOW DOSE ASPIRIN) 81 mg EC tablet Take 1 tablet by mouth once daily. - Cholecalciferol, Vitamin D3, 50 mcg (2,000 unit) cap Consider 4000 to 5000 IU daily - CALCIUM CARBONATE/VITAMIN D3 (VITAMIN D-3 ORAL) Take by mouth. Problem List As Of Date 12/04/2023 Noted Resolved GENERAL OSTEOARTHROSIS [M15.9] BONE AND CARTILAGE DIS NOS [M89.9, M94.9] 05/15/2003 DIFFUS CYSTIC MASTOPATHY [N60.19] IRRITABLE COLON [K58.9] Obesity, unspecified [E66.9] 07/20/2021 Moderate episode of recurrent major depressive * ALLERGIC RHINITIS NOS [J30.9] ESOPHAGEAL REFLUX [K21.9] Hypothyroidism [E03.9] SCIATICA [M54.30] Hyperlipemia, mixed [E78.2] 03/28/2006 SPINAL STENOSIS-LUMBAR [M48.061] 10/04/2007 Vitamin D deficiency [E55.9] 04/08/2008 Trigger Finger, left ring finger [M65.30] 08/19/2009 Lipoma of Unspecified Site [D17.9] 02/09/2010 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] 01/14/2014 Other and unspecified noninfectious gastroenter*04/09/2014 Essential hypertension [I10] 06/13/2019 Anxiety, generalized [F41.1] 06/13/2019 Abdominal pain, RLQ [R10.31] 06/13/2019 Psychophysiological insomnia [F51.04] 06/13/2019 Constipation [K59.00] 11/28/2022 Disorder of carotid artery (HCC) [I77.9] 02/03/2023 Encounter Status:Closed by ASHLEY MACK on 12/04/23 [facility] CNOVon 08-07-2023 CNOV Office Visit (INTMWS ) -------- AMINA TOBAR ([id number]) 1950 F NFR Date Time Provider Department 08/07/23 8:40 AM FIORELLA HALL INTMWS During your visit today, we recorded the following information about you: Pulse Blood pressure Weight Height 80/minute 124/76 67 kg 1.549 m Fiorella Hall MD 09/14/2023 11:50 PM Signed This note was created using NoteWriter. Subjective Amina Tobar is a 72 year old female. Patient presents with: 6 mo follow up SUBJECTIVE: Amina Tobar is a 72 year old year old lady here today for 6 month follow up appointment for review of medical conditions. Chief complaint - Six months check-up - Pain in the lumbar spine area - Issues with prescription refills - Concerns about low vitamin D and magnesium levels - Pain from a recent fall - Recurrent cold sores History of present illness - Patient had a follow-up back shot for lumbar spine pain - Patient had issues with prescription refills for levothyroxine and hydrochlorothiazide - Patient reported low vitamin D and magnesium levels - Patient fell recently, causing pain and bruising in the lumbar area - Patient experiences recurrent cold sores when having a cold or runny nose Past medical history - Patient visited a heart doctor in March - Patient visited a emergency veterinary technician a month ago - Patient has mild arthritis in the hip - Patient has osteoporosis, treated with Reclast infusion Family history Father had diabetes Social history - Patient exercises regularly - Patient has given up sweets for lunch, leading to weight loss Current medications - Levothyroxine, 50 micrograms once a day, five days a week, and two pills on the other two days a week - Hydrochlorothiazide, one pill every day - Lorazepam, 0.5 mg, 30 tablets, as needed - Trazodone, no current need for refill - Rosuvastatin, not currently taking - Omeprazole, taken in the morning - Dicyclomine, taken occasionally for severe abdomen ache - Vitamin D, over the counter, current dosage unknown - Calcium, over the counter, currently taking Caltrate Lab results - Blood sugar improved - Kidney function normal - Liver tests normal - Blood counts normal - TSH is 2, T3 is 2.5, T4 is 1.4 - Magnesium level at lower normal - Vitamin D level low at 27 Imaging results X-ray showed mild arthritis in the hip Physical exam - Heart regular, no murmurs - Lungs clear - No swelling in the lower extremities - Bruise in the lumbar area from recent fall Assessment - Lumbar spine pain - Mild arthritis in the hip - Low vitamin D and magnesium levels - Bruising from recent fall Plan - Recommendation to increase vitamin D intake by 2000 units daily - Continue taking magnesium - Possible orthopedic evaluation for hip pain if it persists - Monitor bruising from fall Prescription Refilled prescriptions for levothyroxine, hydrochlorothiazide, and lorazepam Appointments - Next appointment in January for Medicare Wellness check - Another appointment in July Note drafted by Zubka. Note reviewed, edited, and signed by the visit provider. Additional details below: PAST MEDICAL HISTORY Diagnosis Date Allergic rhinitis, cause unspecified Arthritis Depressive disorder, not elsewhere classified with anxiety Diffuse cystic mastopathy Disorder of bone and cartilage, unspecified 05/2003 Esophageal reflux Generalized osteoarthrosis, unspecified site lumbar spine Hypertension Internal hemorrhoids without mention of complication Irritable bowel syndrome Obesity, unspecified Other bursitis disorders right greater trochanter Sciatica Thyrotoxicosis without mention of goiter or other cause, without mention of thyrotoxic crisis or storm 1998 Hyperthyroidism/had radioactive iodine Unspecified hypothyroidism Current Outpatient Medications Medication Sig dicyclomine (BENTYL) 10 mg capsule Take 1 capsule by mouth before meals and at bedtime. As needed magnesium oxide (MAG-OX) 400 mg (241.3 mg magnesium) tablet Take 1 tablet by mouth once daily. melatonin 5 mg tablet Take 5 mg by mouth daily at bedtime. omeprazole (PRILOSEC) 40 mg capsule Take 1 capsule by mouth twice daily before meals (0600/1600). traZODone (DESYREL) 100 mg tablet Take 1 tablet by mouth daily at bedtime. As directed buPROPion XL (WELLBUTRIN XL) 300 mg 24 hr tablet Take 1 tablet by mouth once daily. ondansetron orally disintegrating (ZOFRAN ODT) 4 mg disintegrating tablet Take 1 tablet by mouth every 6 hours as needed for nausea/vomiting. vit B complex no.12/niacin,B3, (VITAMIN B COMPLEX NO.12-NIACIN ORAL) Take 1 tablet by mouth once daily. Cholecalciferol, Vitamin D3, 50 mcg (2,000 unit) cap Consider 4000 to 5000 IU daily hydroCHLOROthiazide 50 mg tablet Take 1 tablet by mouth once daily. LORazepam (ATIVAN) (more content not included)... Normal [facility] 25(OH)D3 [facility] 25-hydroxyvitamin D3 [Mass/Vol] 27.0 ng/mL Low 31.0-80.0 [facility] Comment on above: Order Comment: Speci men Type: BLOOD SPECIMENOrdering Facility: [facility] Address: [address] [place] [address] Result Comment: Clas sification of 25 [place] Vitamin D status: Deficiency/Insufficiency: < or = 30 ng/ml. Sufficiency/Optimal Levels: 31-80 ng/mL Toxicity: > 100 ng/mL. Test performed by chemiluminescent immunoassay. Performed By: #### 1 989-3 ####[facility] LABCLIA [id number] [place] [address] [place] CBC panel Auto (Bld)on 08-02 Erythrocyte distribution width (RBC) [Ratio] 13.1 % Normal 11.5-15.0 [facility] Comment on above: Order Comment: Speci men Type: BLOOD SPECIMENOrdering Facility: [facility] Address: [address] [place] [address] Performed By: #### 5 8410-2 ####[facility] [id number] [place] [address] [place] Hematocrit (Bld) [Volume fraction] 40.7 % Normal 36.0-46.0 [facility] Comment on above: Order Comment: Speci men Type: BLOOD SPECIMENOrdering Facility: [facility] Address: [address] [place] [address] Performed By: #### 5 8410-2 ####[facility] [id number] [place] [address] [place] Hemoglobin (Bld) [Mass/Vol] 13.9 g/dL Normal 11.5-15.5 [facility] Comment on above: Order Comment: Speci men Type: BLOOD SPECIMENOrdering Facility: [facility] Address: [address] [place] [address] Performed By: #### 5 8410-2 ####[facility] [id number] [place] [address] [place] MCH (RBC) [Entitic mass] 31.2 pg Normal 26.0-34.0 [facility] Comment on above: Order Comment: Speci men Type: BLOOD SPECIMENOrdering Facility: [facility] Address: [address] [place] [address] Performed By: #### 5 8410-2 ####[facility] [id number] [place] [address] [place] MCHC (RBC) [Mass/Vol] 34.2 g/dL Normal 30.5-36.0 [facility] Comment on above: Order Comment: Speci men Type: BLOOD SPECIMENOrdering Facility: [facility] Address: [address] [place] [address] Performed By: #### 5 8410-2 ####[facility] [id number] [place] [address] [place] MCV (RBC) [Entitic vol] 91.5 fL Normal 80.0-100.0 [facility] Comment on above: Order Comment: Speci men Type: BLOOD SPECIMENOrdering Facility: [facility] Address: [address] [place] [address] Performed By: #### 5 8410-2 ####[facility] [id number] [place] [address] [place] Nucleated RBC (Bld) [#/Vol] 10*3/uL Normal <0.01 [facility] Comment on above: Order Comment: Speci men Type: BLOOD SPECIMENOrdering Facility: [facility] Address: [address] [place] [address] Performed By: #### 5 8410-2 ####[facility] [id number] [place] [address] [place] Platelet mean volume (Bld) [Entitic vol] 9.4 fL Normal 9.0-12.7 [facility] Comment on above: Order Comment: Speci men Type: BLOOD SPECIMENOrdering Facility: [facility] Address: [address] [place] [address] Performed By: #### 5 8410-2 ####[facility] [id number] [place] [address] [place] Platelets (Bld) [#/Vol] 243 10*3/uL Normal 150-400 [facility] Comment on above: Order Comment: Speci men Type: BLOOD SPECIMENOrdering Facility: [facility] Address: [address] [place] [address] Performed By: #### 5 8410-2 ####[facility] SYSTEMWNCLIA [id number] [place] [address] [place] RBC (Bld) [#/Vol] 4.45 10*6/uL Normal 3.90-5.20 [facility] Comment on above: Order Comment: Speci men Type: BLOOD SPECIMENOrdering Facility: [facility] Address: [address] [place] [address] Performed By: #### 5 8410-2 ####[facility]CA [id number] [place] [address] [place] WBC (Bld) [#/Vol] 7.19 10*3/uL Normal 3.70-11.00 [facility] Comment on above: Order Comment: Speci men Type: BLOOD SPECIMENOrdering Facility: [facility] Address: [address] [place] [address] Performed By: #### 5 8410-2 ####[facility] [id number] [place] [address] [place] Comprehensive metabolic 2000 panelon 08-03-2023 Albumin [Mass/Vol] 4.1 g/dL Normal 3.9-4.9 [facility] Comment on above: Order Comment: Speci men Type: BLOOD SPECIMENOrdering Facility: [facility] Address: [address] [place] [address] Performed By: #### 1 9123-9, 45447-2 ####[facility]CLIA [id number] [place] [address] [place] ALP [Catalytic activity/Vol] 64 U/L Normal 34-123 [facility] Comment on above: Order Comment: Speci men Type: BLOOD SPECIMENOrdering Facility: [facility] Address: [address] [place] [address] Performed By: #### 1 9123-9, ####[facility]CL[facility] [id number] [place] [address] [place] ALT [Catalytic activity/Vol] 11 U/L Normal 7-38 [facility] Comment on above: Order Comment: Speci men Type: BLOOD SPECIMENOrdering Facility: [facility] Address: [address] [place] [address] Performed By: #### 1 9123-9, 53663-9 ####[facility]ENTERNCSHR[facility] [id number] [place] [address] [place] Anion gap [Moles/Vol] 7 mmol/L Low 9-18 [facility] Comment on above: Order Comment: Speci men Type: BLOOD SPECIMENOrdering Facility: [facility] Address: [address] [place] [address] Performed By: #### 1 9123-9, 45745-2 ####[facility] [id number] [place] [address] [place] AST [Catalytic activity/Vol] 14 U/L Normal 13-35 [facility] Comment on above: Order Comment: Speci men Type: BLOOD SPECIMENOrdering Facility: [facility] Address: [address] [place] [address] Performed By: #### 1 9123-9, 29632-4 ####[facility] [id number] [place] [address] [place] Bilirubin [Mass/Vol] 0.3 mg/dL Normal 0.2-1.3 [facility] Comment on above: Order Comment: Speci men Type: BLOOD SPECIMENOrdering Facility: [facility] Address: [address] [place], [place] [address] Performed By: #### 1 9123-9, 09708-6 ####[facility] JOANNEWDIANALIA [id number] [place] [address] [place] Calcium [Mass/Vol] 9.2 mg/dL Normal 8.5-10.2 [facility] Comment on above: Order Comment: Speci men Type: BLOOD SPECIMENOrdering Facility: [facility] Address: [address] [place], [place] [address] Performed By: #### 1 9123-9, 88485-1 ####[facility] SHANDRAWDIANALIA [id number] [place] [address] [place] Chloride [Moles/Vol] 104 mmol/L Normal 97-105 [facility] Comment on above: Order Comment: Speci men Type: BLOOD SPECIMENOrdering Facility: [facility] Address: [address] [place] [address] Performed By: #### 1 9123-9, 67072-5 ####[facility] SHANDRAEJWDIANALIA [id number] [place] [address] [place] CO2 [Moles/Vol] 28 mmol/L Normal 22-30 [facility] Comment on above: Order Comment: Speci men Type: BLOOD SPECIMENOrdering Facility: [facility] Address: [address] [place] [address] Performed By: #### 1 9123-9, 15596-3 ####[facility] MILLWNCLIA [id number] [place] [address] [place] Creatinine [Mass/Vol] 0.80 mg/dL Normal 0.58-0.96 [facility] Comment on above: Order Comment: Speci men Type: BLOOD SPECIMENOrdering Facility: [facility] Address: [address] [place] [address] Performed By: #### 1 9123-9, 24537-2 ####[facility] SYSTEMWNCLIA [id number] [place] [address] [place] Creatinine and Glomerular filtration rate.predicted panel (S/P/Bld) 78 mL/min/1.73m??? Normal >=60 [facility] Comment on above: Order Comment: Kendall rojo Type: BLOOD SPECIMENOrdering Facility: [facility] Address: [address] [place] [address] Result Comment: Patricia mated Glomerular Filtration Rate (eGFR) is calculated using the 2020 CKD-EPI creatinine equation. This equation utilizes serum creatinine, sex, and age as parameters. The creatinine assay has traceable calibration to isotope dilution-mass spectrometry. Refer to KDIGO guidelines for clinical interpretation. In patients with unstable renal function, e.g. those with acute kidney injury, the eGFR may not accurately reflect actual GFR. Performed By: #### 1 9123-9, 09412-7 ####[facility] [id number] [place] [address] [place] Glucose [Mass/Vol] 102 mg/dL High 74-99 [facility] Comment on above: Order Comment: Kendall rojo Type: BLOOD SPECIMENOrdering Facility: [facility] Address: [address] [place] [address] Result Comment: The [place] Diabetes Association (ADA) provides guidance for cutoff values for fasting glucose and random glucose. The ADA defines fasting as no caloric intake for at least 8 hours. Fasting plasma glucose results between 100 to 125 [...] Standards of Medical Care in Diabetes 2016, [place] Diabetes Association. Diabetes Care. 2016.39(Suppl 1). Performed By: #### 1 9123-9, 16261-2 ####[facility] [id number] [place] [address] [place] Potassium [Moles/Vol] 4.0 mmol/L Normal 3.7-5.1 [facility] Comment on above: Order Comment: Speci men Type: BLOOD SPECIMENOrdering Facility: [facility] Address: [address] [place] [address] Performed By: #### 1 9123-9, 50314-5 ####[facility] MILLTOWNCLIA [id number] [place] [address] [place] Protein [Mass/Vol] 6.5 g/dL Normal 6.3-8.0 [facility] Comment on above: Order Comment: Speci men Type: BLOOD SPECIMENOrdering Facility: [facility] Address: [address] [place] [address] Performed By: #### 1 9123-9, 09427-6 ####[facility] MILLTOWNCLIA [id number] [place] [address] [place] Sodium [Moles/Vol] 139 mmol/L Normal 136-144 [facility] Comment on above: Order Comment: Speci men Type: BLOOD SPECIMENOrdering Facility: [facility] Address: [address] [place] [address] Performed By: #### 1 9123-9, 74569-0 ####[facility] MILLTOWNCLIA [id number] [place] [address] [place] Urea nitrogen [Mass/Vol] 10 mg/dL Normal 7-21 [facility] Comment on above: Order Comment: Speci men Type: BLOOD SPECIMENOrdering Facility: [facility] Address: [address] [place] [address] Performed By: #### 1 9123-9, 55429-6 ####[facility] MILLTOWNCLIA [id number] [place] [address] [place] Magnesium SerPl-mCncon 08-02 Magnesium [Mass/Vol] 1.7 mg/dL Normal 1.7-2.3 [facility] Comment on above: Order Comment: Speci men Type: BLOOD SPECIMENOrdering Facility: [facility] Address: [address] [place] [address] Performed By: #### 1 9123-9, 63872-4 ####[facility] [id number] [place] [address] [place] T3Free SerPl-mCncon 08-03-19 24 Free T3 [Mass/Vol] 2.5 pg/mL Normal 2.3-4.1 [facility] Comment on above: Order Comment: Speci men Type: BLOOD SPECIMENOrdering Facility: [facility] Address: [address] [place] [address] Performed By: #### 3 051-0, 3024-7, 3016-3 ####[facility] LABIA [id number] [place] [id number] [place] T4 Free SerPl-mCncon 024 Free T4 [Mass/Vol] 1.4 ng/dL Normal 0.9-1.7 [facility] Comment on above: Order Comment: Speci men Type: BLOOD SPECIMENOrdering Facility: [facility] Address: [address] [place] [address] Performed By: #### 3 051-0, 3024-7, 3016-3 ####[facility] [id number] [place] [id number] [place] TSH SerPl-aCncon 08-03-2023 TSH Qn 2.000 m[IU]/L Normal 0.270-4.200 [facility] Comment on above: Order Comment: Speci men Type: BLOOD SPECIMENOrdering Facility: [facility] Address: [address] [place] [address] Performed By: #### 3 051-0, 3024-7, 3016-3 ####[facility] DAVIDA [id number] [place] [address] [place] CNOVon 04-04-2023 CNOV Office Visit (VASSWS ) -------- AMINA TOBAR ([id number]) 1950 F NFR Date Time Provider Department 04/04/23 9:00 AM ANNEMARIE WESTBROOK VASSWS During your visit today, we recorded the following information about you: Pulse Blood pressure 74/minute 149/84 Annemarie Westbrook, DO 04/04/2023 9:49 AM [facility] [place] DEPARTMENT OF VASCULAR SURGERY OUTPATIENT VISIT DATE April 04, 2023 OUTPATIENT VISIT TYPE ESTABLISHED SERVICE DATE: 04/04/2023 SERVICE TIME: 9:33 AM PRIMARY CARE PHYSICIAN: Fiorella Hall MD HISTORY OF PRESENT ILLNESS: Ms. Tobar is a 72 year old female who presents today for a vascular surgery follow-up visit follow on symptomatic varicose veins and sclerotherapy and carotid artery stenosis. She denies any focal neurologic deficit. PAST MEDICAL HISTORY Diagnosis Date Allergic rhinitis, cause unspecified Arthritis Depressive disorder, not elsewhere classified with anxiety Diffuse cystic mastopathy Disorder of bone and cartilage, unspecified 05/2003 Esophageal reflux Generalized osteoarthrosis, unspecified site lumbar spine Hypertension Internal hemorrhoids without mention of complication Irritable bowel syndrome Obesity, unspecified Other bursitis disorders right greater trochanter Sciatica Thyrotoxicosis without mention of goiter or other cause, without mention of thyrotoxic crisis or storm 1998 Hyperthyroidism/had radioactive iodine Unspecified hypothyroidism PAST SURGICAL HISTORY Procedure Laterality Date BACK SURGERY HX COLONOSCOPY FLX DX W/COLLJ SPEC WHEN PFRMD 07/02/2007 COLONOSCOPY FLX DX W/COLLJ SPEC WHEN PFRMD 04/09/2014 Colonoscopy ESOPHAGOGASTRODUODENOSCO PY TRANSORAL DIAGNOSTIC 12/1991 EGD ESOPHAGOGASTRODUODENOSCO PY TRANSORAL DIAGNOSTIC 02/27/2020 EGD EYE SURGERY HX Bilateral cataract extraction and lens implants PAST SURGICAL HISTORY OF cataract surgery--right July 2015,left August 2015 SIGMOIDOSCOPY FLX DX W/COLLJ SPEC BR/WA IF PFRMD Sigmoidoscopy, flexible SKIN BIOPSY HX TONSILLECTOMY HX TONSILLECTOMY PRIMARY/SECONDARY Tonsillectomy/adenoidect julien SOCIAL HISTORY Social History Tobacco Use Smoking status: Former Types: Cigarettes Start date: 05/15/1986 Smokeless tobacco: Never Vaping Use Vaping Use: Never used Substance Use Topics Alcohol use: Yes Alcohol/week: 3.0 standard drinks of alcohol Types: 3 Glasses of Wine (5oz) per week Drug use: No MEDICATIONS: levothyroxine (SYNTHROID) 50 mcg tablet Take 1 pill by mouth daily 5 days per week and 2 pills daily 2 days per week dicyclomine (BENTYL) 10 mg capsule Take 1 capsule by mouth before meals and at bedtime. As needed LORazepam (ATIVAN) 0.5 mg Take 1 at bedtime as needed magnesium oxide (MAG-OX) 400 mg (241.3 mg magnesium) tablet Take 1 tablet by mouth once daily. polyethylene glycol 3350 17 gram/dose powder Take 17 g by mouth once daily. Dissolve dose in 4 - 8 ounces of liquid and take as directed. melatonin 5 mg tablet Take 5 mg by mouth daily at bedtime. omeprazole (PRILOSEC) 40 mg capsule Take 1 capsule by mouth twice daily before meals (0600/1600). hydroCHLOROthiazide (HYDRODIURIL, ESIDRIX) 50 mg tablet Take 1 tablet by mouth once daily. traZODone (DESYREL) 100 mg tablet Take 1 tablet by mouth daily at bedtime. As directed buPROPion XL (WELLBUTRIN XL) 300 mg 24 hr tablet Take 1 tablet by mouth once daily. ondansetron orally disintegrating (ZOFRAN ODT) 4 mg disintegrating tablet Take 1 tablet by mouth every 6 hours as needed for nausea/vomiting. aspirin, enteric coated (ADULT LOW DOSE ASPIRIN) 81 mg EC tablet Take 1 tablet by mouth once daily. Cholecalciferol, Vitamin D3, 50 mcg (2,000 unit) cap Consider 4000 to 5000 IU daily CALCIUM CARBONATE/VITAMIN D3 (VITAMIN D-3 ORAL) Take by mouth. vit B complex no.12/niacin,B3, (VITAMIN B COMPLEX NO.12-NIACIN ORAL) Take 1 tablet by mouth once daily. rosuvastatin (CRESTOR) 5 mg tablet Take 1 tablet by mouth daily at bedtime. (Patient not taking: Reported on 03/15/2023) ALLERGIES: ALLERGIES Allergen Reactions Axid [Nizatidine] Hives Cymbalta [Duloxetin* Insomnia Lipitor [Atorvastat* Other: See Comments Insomnia, headache and nausea Lisinopril Cough cough with vomiting Losartan Cough Meridia [Sibutramin* Rash Sulfabenzamide Intolerance red mouth; sulfa med caused adverse effect PHYSICAL EXAM: BP 149/84 (BP Site: Left Arm, BP Position: Sitting, BP Cuff Size: Regular Adult) Pulse 74 SpO2 100% General: Alert and oriented Integumentary: Normal color, no rash, no lesions. HEENT: EOM, pupils equal, round and reactive. Cardiovascular: Pulse regular. Lungs: No chest deformities or chest wall tenderness. Abdomen: Not examined Extremities: Varicose veins Neurological: Normal cognition and motor skills. Vascular: Radial Pulse Right: No (more content not included)... Normal [facility] Pieter [facility]20[facility] -------- AMINA TOBAR ([id number]) 1950 F NFR Date Time Provider Department 03/30/23 FINANCIAL NAVIGATOR MATA CAMPO During your visit today, we recorded the following information about you: Ronel Cervantes 03/30/2023 4:05 PM Signed Patient on 1st time treatment report-non oncology regimen (Reclast) Patient holds medicare coverage and no FA available for this treatment. Allergies As of Date: 03/30/2023 Noted Allergy Reaction AXID (NIZATIDINE) 03/30/2005 4 - Hives CYMBALTA (DULOXETINE) 08/19/2009 Comments: Insomnia LIPITOR (ATORVASTATIN) 11/27/2020 14 - Other: See Comments Comments: Insomnia, headache and nausea LISINOPRIL 07/04/2018 3 - Cough Comments: cough with vomiting LOSARTAN 08/05/2019 3 - Cough MERIDIA (SIBUTRAMINE) 03/30/2005 2 - Rash SULFABENZAMIDE 03/30/2005 5 - Intolerance Comments: red mouth; sulfa med caused adverse effect Date Reviewed: 03/30/2023 Reviewed by: Ashley Broderick RN - Fully Assessed Reason for Visit: Benefits Investigation [4098] Prescriptions as of 03/30/2023 - levothyroxine (SYNTHROID) 50 mcg tablet Take 1 pill by mouth daily 5 days per week and 2 pills daily 2 days per week - dicyclomine (BENTYL) 10 mg capsule Take 1 capsule by mouth before meals and at bedtime. As needed - LORazepam (ATIVAN) 0.5 mg Take 1 at bedtime as needed - magnesium oxide (MAG-OX) 400 mg (241.3 mg magnesium) tablet Take 1 tablet by mouth once daily. - polyethylene glycol 3350 17 gram/dose powder Take 17 g by mouth once daily. Dissolve dose in 4 - 8 ounces of liquid and take as directed. - melatonin 5 mg tablet Take 5 mg by mouth daily at bedtime. - omeprazole (PRILOSEC) 40 mg capsule Take 1 capsule by mouth twice daily before meals (0600/1600). - hydroCHLOROthiazide (HYDRODIURIL, ESIDRIX) 50 mg tablet Take 1 tablet by mouth once daily. - traZODone (DESYREL) 100 mg tablet Take 1 tablet by mouth daily at bedtime. As directed - buPROPion XL (WELLBUTRIN XL) 300 mg 24 hr tablet Take 1 tablet by mouth once daily. - ondansetron orally disintegrating (ZOFRAN ODT) 4 mg disintegrating tablet Take 1 tablet by mouth every 6 hours as needed for nausea/vomiting. - vit B complex no.12/niacin,B3, (VITAMIN B COMPLEX NO.12-NIACIN ORAL) Take 1 tablet by mouth once daily. - rosuvastatin (CRESTOR) 5 mg tablet Take 1 tablet by mouth daily at bedtime. - aspirin, enteric coated (ADULT LOW DOSE ASPIRIN) 81 mg EC tablet Take 1 tablet by mouth once daily. - Cholecalciferol, Vitamin D3, 50 mcg (2,000 unit) cap Consider 4000 to 5000 IU daily - CALCIUM CARBONATE/VITAMIN D3 (VITAMIN D-3 ORAL) Take by mouth. Problem List As Of Date 03/30/2023 Noted Resolved GENERAL OSTEOARTHROSIS [M15.9] BONE AND CARTILAGE DIS NOS [M89.9, M94.9] 05/15/2003 DIFFUS CYSTIC MASTOPATHY [N60.19] IRRITABLE COLON [K58.9] Obesity, unspecified [E66.9] 07/20/2021 Moderate episode of recurrent major depressive * ALLERGIC RHINITIS NOS [J30.9] ESOPHAGEAL REFLUX [K21.9] Hypothyroidism [E03.9] SCIATICA [M54.30] Hyperlipemia, mixed [E78.2] 03/28/2006 SPINAL STENOSIS-LUMBAR [M48.061] 10/04/2007 Vitamin D deficiency [E55.9] 04/08/2008 Trigger Finger, left ring finger [M65.30] 08/19/2009 Lipoma of Unspecified Site [D17.9] 02/09/2010 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] 01/14/2014 Other and unspecified noninfectious gastroenter*04/09/2014 Essential hypertension [I10] 06/13/2019 Anxiety, generalized [F41.1] 06/13/2019 Abdominal pain, RLQ [R10.31] 06/13/2019 Psychophysiological insomnia [F51.04] 06/13/2019 Constipation [K59.00] 11/28/2022 Disorder of carotid artery (HCC) [I77.9] 02/03/2023 Encounter Status:Closed by RONEL CERVANTES on 03/30/23 Normal [facility] US CAROTID ARTERIES HARRIET VAS LABon 03-29-2023 US CAROTID ARTERIES HARRIET VAS LAB Non-Invasive Vascular Laboratory [facility] Carotid Duplex Bilateral/Complete Date of service/time: 03/29/2023 7:58:29 AM Name: AMINA TOBAR Date of : 1950 Age: 72 years Gender: F Clinical Indication Follow-up study on a patient with known carotid disease. TECHNIQUE -------- A carotid duplex ultrasound examination was performed, including grayscale imaging and color Doppler and spectral Doppler examination of the below mentioned arteries. FINDINGS -------- RIGHT SIDE Common carotid artery: Origin: PSV: 92 cm/s. EDV: 12 cm/s. Proximal: PSV: 80 cm/s. EDV: 11 cm/s. Mid: PSV: 64 cm/s. EDV: 14 cm/s. Distal: PSV: 60 cm/s. EDV: 16 cm/s. Mild heterogeneous plaque at distal. Internal carotid artery: Origin: PSV: 230 cm/s. EDV: 61 cm/s. Proximal: PSV: 247 cm/s. EDV: 41 cm/s. Mid: PSV: 148 cm/s. EDV: 47 cm/s. Distal: PSV: 96 cm/s. EDV: 29 cm/s. Moderate heterogeneous plaque at origin. ICA/CCA Ratio: 4.1 External carotid artery: Origin: PSV: 70 cm/s. EDV: 13 cm/s. Subclavian artery: Origin: PSV: 87 cm/s. EDV: 0 cm/s. Mild heterogeneous plaque at origin. Innominate artery: PSV: 88 cm/s. EDV: 0 cm/s. Vertebral artery: PSV: 52 cm/s. EDV: 13 cm/s. LEFT SIDE Common carotid artery: Proximal: PSV: 92 cm/s. EDV: 20 cm/s. Mid: PSV: 83 cm/s. EDV: 20 cm/s. Distal: PSV: 69 cm/s. EDV: 17 cm/s. Internal carotid artery: Origin: PSV: 67 cm/s. EDV: 19 cm/s. Proximal: PSV: 86 cm/s. EDV: 25 cm/s. Mid: PSV: 102 cm/s. EDV: 30 cm/s. Distal: PSV: 96 cm/s. EDV: 28 cm/s. Mild heterogeneous plaque at origin. ICA/CCA Ratio: 1.5 External carotid artery: Origin: PSV: 58 cm/s. EDV: 7 cm/s. Subclavian artery: Proximal: PSV: 103 cm/s. EDV: 0 cm/s. Vertebral artery: PSV: 61 cm/s. EDV: 16 cm/s. IMPRESSION Compared to prior study of 02/24/2022, No significant change. RIGHT SIDE Common carotid artery: Plaque visualized without evidence of hemodynamically significant stenosis. Internal carotid artery: 60-79% stenosis. Vertebral artery: Patent and antegrade flow noted. Subclavian artery: Plaque visualized without evidence of hemodynamically significant stenosis. LEFT SIDE Internal carotid artery: 20-39% stenosis. Tortuous vessel at distal . Vertebral artery: Patent and antegrade flow noted. Technologist: Melissa Alejo RVT, [facility] Ordering physician: ANNEMARIE WESTBROOK Interpreting physician: RON Melo DO Final CC [employer] Medical Image : [id number] See Link below for Image Normal [facility] CNOVon 03-15-2023 CNOV Office Visit (INTMWS ) -------- AMINA TOBAR ([id number]) 1950 F NFR Date Time Provider Department 03/15/23 8:00 AM COCO OCAMPO INTMWS During your visit today, we recorded the following information about you: Pulse Blood pressure Weight 84/minute 118/70 72.1 kg Coco Ocampo APRN.REVERBERATORY FURNACE OPERATOR 03/15/2023 8:53 AM Signed SUBJECTIVE Amina Tobar is a 72 year old female here today for a check up on her medical problems. Chief Complaint Patient presents with: F/U on Bone Density Results HPI Amina Tobar is a 72 year old female. Recent bone density showed progression of osteopenia to osteoporosis. She is taking calcium and vitamin D. Exercising regularly. Trying to avoid falls. Some trouble with pills, interested in Reclast infusions. Her medications were reviewed today and her list is now up to date. Medications Current Outpatient Medications Medication Sig levothyroxine (SYNTHROID) 50 mcg tablet Take 1 pill by mouth daily 5 days per week and 2 pills daily 2 days per week dicyclomine (BENTYL) 10 mg capsule Take 1 capsule by mouth before meals and at bedtime. As needed LORazepam (ATIVAN) 0.5 mg Take 1 at bedtime as needed magnesium oxide (MAG-OX) 400 mg (241.3 mg magnesium) tablet Take 1 tablet by mouth once daily. polyethylene glycol 3350 17 gram/dose powder Take 17 g by mouth once daily. Dissolve dose in 4 - 8 ounces of liquid and take as directed. melatonin 5 mg tablet Take 5 mg by mouth daily at bedtime. omeprazole (PRILOSEC) 40 mg capsule Take 1 capsule by mouth twice daily before meals (0600/1600). hydroCHLOROthiazide (HYDRODIURIL, ESIDRIX) 50 mg tablet Take 1 tablet by mouth once daily. traZODone (DESYREL) 100 mg tablet Take 1 tablet by mouth daily at bedtime. As directed buPROPion XL (WELLBUTRIN XL) 300 mg 24 hr tablet Take 1 tablet by mouth once daily. ondansetron orally disintegrating (ZOFRAN ODT) 4 mg disintegrating tablet Take 1 tablet by mouth every 6 hours as needed for nausea/vomiting. vit B complex no.12/niacin,B3, (VITAMIN B COMPLEX NO.12-NIACIN ORAL) Take 1 tablet by mouth once daily. aspirin, enteric coated (ADULT LOW DOSE ASPIRIN) 81 mg EC tablet Take 1 tablet by mouth once daily. Cholecalciferol, Vitamin D3, 50 mcg (2,000 unit) cap Consider 4000 to 5000 IU daily CALCIUM CARBONATE/VITAMIN D3 (VITAMIN D-3 ORAL) Take by mouth. rosuvastatin (CRESTOR) 5 mg tablet Take 1 tablet by mouth daily at bedtime. (Patient not taking: Reported on 03/15/2023) Current Facility-Administered Medications Medication Dose Route Frequency [START ON 04/19/2023] zoledronic acid 5 mg PREMIX piggyback (RECLAST) 5 mg INTRAVENOUS ONCE (AMB - Up to 30 Days) ALLERGIES Allergen Reactions Axid [Nizatidine] Hives Cymbalta [Duloxetin* Insomnia Lipitor [Atorvastat* Other: See Comments Insomnia, headache and nausea Lisinopril Cough cough with vomiting Losartan Cough Meridia [Sibutramin* Rash Sulfabenzamide Intolerance red mouth; sulfa med caused adverse effect ACTIVE PROBLEM LIST Disorder of Carotid Artery (Hcc) - 02/03/2023 Constipation - 11/28/2022 Essential Hypertension - 06/13/2019 Anxiety, Generalized - 06/13/2019 Abdominal Pain, Rlq - 06/13/2019 Psychophysiological Insomnia - 06/13/2019 Other and Unspecified Noninfectious Gastroenteritis and Colitis(558.9) - 04/09/2014 Parapelvic Renal Cyst - 01/14/2014 Comment: CT [facility] 12/29/13 Lipoma of Unspecified Site - 02/09/2010 Trigger Finger, left ring finger - 08/19/2009 Vitamin D Deficiency - 04/08/2008 Spinal Stenosis, Lumbar Region, Without Neurogenic Claudication - 10/04/2007 Hyperlipemia, Mixed - 03/28/2006 Sciatica Generalized Osteoarthrosis, Unspecified Site Comment: lumbar spine Diffuse Cystic Mastopathy Irritable Bowel Syndrome Moderate Episode of Recurrent Major Depressive Disorder ([facility]) Comment: with anxiety Allergic Rhinitis, Cause Unspecified Esophageal Reflux Hypothyroidism Disorder of Bone and Cartilage, Unspecified - 05/15/2003 Social History Tobacco Use Smoking status: Former Types: Cigarettes Start date: 05/15/1986 Smokeless tobacco: Never Vaping Use Vaping Use: Never used Substance Use Topics Alcohol use: Yes Alcohol/week: 7.5 standard drinks of alcohol Types: 3 Glasses of Wine (5oz) per week Drug use: No Review of Systems Respiratory: Negative. Cardiovascular: Negative. Musculoskeletal: Negative. OBJECTIVE BP 118/70 Pulse 84 Wt 159 lb (72.1kg) SpO2 98% Physical Exam Vitals and nursing note reviewed. Constitutional: General: She is awake. She is not in acute distress. Appearance: Normal appearance. She is well-developed and well-groomed. She is not ill-appearing, toxic-appearing or diaphoretic. HENT: Head: Normocephalic. Right Ear: External ear normal. Left Ear: External ear normal. Nose: Nose normal. Eyes: General: Vision grossly (more content not included)... Normal [facility] CNPNon 03-15-2023 SKIP Telephone (HEMAWS) -------- AMY TOBAREDWIN Martinez ([id number]) 1950 F NFR Date Time Provider Department 03/15/23 COCO OCAMPO During your visit today, we recorded the following information about you: Goodman 03/15/2023 9:08 AM Signed Coco Ocampo APRN.CNP P Wstr Hem/Onc Psr Patient has orders for reclast infusions, can we please get her set up for this? Thank you!! Coco Liao 03/15/2023 10:33 AM Signed Please flip orders to Portal for scheduling Thank you! Goodman 03/15/2023 11:27 AM Signed 1st attempt: When pt returns call please assist in scheduling Jackelyn Novak 03/15/2023 2:20 PM Signed Scheduled with patient Start email sent Allergies As of Date: 03/15/2023 Noted Allergy Reaction AXID (NIZATIDINE) 03/30/2005 4 - Hives CYMBALTA (DULOXETINE) 08/19/2009 Comments: Insomnia LIPITOR (ATORVASTATIN) 11/27/2020 14 - Other: See Comments Comments: Insomnia, headache and nausea LISINOPRIL 07/04/2018 3 - Cough Comments: cough with vomiting LOSARTAN 08/05/2019 3 - Cough MERIDIA (SIBUTRAMINE) 03/30/2005 2 - Rash SULFABENZAMIDE 03/30/2005 5 - Intolerance Comments: red mouth; sulfa med caused adverse effect Date Reviewed: 03/15/2023 Reviewed by: Coco Ocampo APRN.CNP - Fully Assessed Reason for Visit: RECLAST START [Other] Prescriptions as of 03/15/2023 - levothyroxine (SYNTHROID) 50 mcg tablet Take 1 pill by mouth daily 5 days per week and 2 pills daily 2 days per week - dicyclomine (BENTYL) 10 mg capsule Take 1 capsule by mouth before meals and at bedtime. As needed - LORazepam (ATIVAN) 0.5 mg Take 1 at bedtime as needed - magnesium oxide (MAG-OX) 400 mg (241.3 mg magnesium) tablet Take 1 tablet by mouth once daily. - polyethylene glycol 3350 17 gram/dose powder Take 17 g by mouth once daily. Dissolve dose in 4 - 8 ounces of liquid and take as directed. - melatonin 5 mg tablet Take 5 mg by mouth daily at bedtime. - omeprazole (PRILOSEC) 40 mg capsule Take 1 capsule by mouth twice daily before meals (0600/1600). - hydroCHLOROthiazide (HYDRODIURIL, ESIDRIX) 50 mg tablet Take 1 tablet by mouth once daily. - traZODone (DESYREL) 100 mg tablet Take 1 tablet by mouth daily at bedtime. As directed - buPROPion XL (WELLBUTRIN XL) 300 mg 24 hr tablet Take 1 tablet by mouth once daily. - ondansetron orally disintegrating (ZOFRAN ODT) 4 mg disintegrating tablet Take 1 tablet by mouth every 6 hours as needed for nausea/vomiting. - vit B complex no.12/niacin,B3, (VITAMIN B COMPLEX NO.12-NIACIN ORAL) Take 1 tablet by mouth once daily. - rosuvastatin (CRESTOR) 5 mg tablet Take 1 tablet by mouth daily at bedtime. - aspirin, enteric coated (ADULT LOW DOSE ASPIRIN) 81 mg EC tablet Take 1 tablet by mouth once daily. - Cholecalciferol, Vitamin D3, 50 mcg (2,000 unit) cap Consider 4000 to 5000 IU daily - CALCIUM CARBONATE/VITAMIN D3 (VITAMIN D-3 ORAL) Take by mouth. Facility-Administered Medications as of 03/15/2023 - zoledronic acid 5 mg PREMIX piggyback (RECLAST) Problem List As Of Date 03/15/2023 Noted Resolved GENERAL OSTEOARTHROSIS [M15.9] BONE AND CARTILAGE DIS NOS [M89.9, M94.9] 05/15/2003 DIFFUS CYSTIC MASTOPATHY [N60.19] IRRITABLE COLON [K58.9] Obesity, unspecified [E66.9] 07/20/2021 Moderate episode of recurrent major depressive * ALLERGIC RHINITIS NOS [J30.9] ESOPHAGEAL REFLUX [K21.9] Hypothyroidism [E03.9] SCIATICA [M54.30] Hyperlipemia, mixed [E78.2] 03/28/2006 SPINAL STENOSIS-LUMBAR [M48.061] 10/04/2007 Vitamin D deficiency [E55.9] 04/08/2008 Trigger Finger, left ring finger [M65.30] 08/19/2009 Lipoma of Unspecified Site [D17.9] 02/09/2010 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] 01/14/2014 Other and unspecified noninfectious gastroenter*04/09/2014 Essential hypertension [I10] 06/13/2019 Anxiety, generalized [F41.1] 06/13/2019 Abdominal pain, RLQ [R10.31] 06/13/2019 Psychophysiological insomnia [F51.04] 06/13/2019 Constipation [K59.00] 11/28/2022 Disorder of carotid artery (HCC) [I77.9] 02/03/2023 Encounter Status:Closed by LAKEISHA BARNES LPN on 03/15/23 [facility]20[facility] -------- AMINA TOBAR ([id number]) 1950 F NFR Date Time Provider Department 03/13/23 COCO OCAMPO INTWS During your visit today, we recorded the following information about you: Coco Ocampo APRN.REVERBERATORY FURNACE OPERATOR 03/13/2023 8:50 AM Signed Please let Amy know her bone density scan done at [facility] does show osteoporosis which has progressed from osteopenia on the prior bone density scan done in 2019. She should continue her calcium and vitamin D. Try to do strength training (light weights) exercise at least 2-3 times weekly. With the progression of her bone weakening taking medication to help treat this is ideal. Please see if she would be able to come in for an appointment to discuss her options for this since there are a few different options. Carolee Sánchez OCCA 03/13/2023 10:35 AM Signed TC to patient who verbalized understanding of providers message below. Patient is agreeable to OV with Anahy Ocampo and per patient preference, is now scheduled 03/15/23. Nothing further at this time. TYSON Lopez Allergies As of Date: 03/13/2023 Noted Allergy Reaction AXID (NIZATIDINE) 03/30/2005 4 - Hives CYMBALTA (DULOXETINE) 08/19/2009 Comments: Insomnia LIPITOR (ATORVASTATIN) 11/27/2020 14 - Other: See Comments Comments: Insomnia, headache and nausea LISINOPRIL 07/04/2018 3 - Cough Comments: cough with vomiting LOSARTAN 08/05/2019 3 - Cough MERIDIA (SIBUTRAMINE) 03/30/2005 2 - Rash SULFABENZAMIDE 03/30/2005 5 - Intolerance Comments: red mouth; sulfa med caused adverse effect Date Reviewed: 02/03/2023 Reviewed by: Fiorella Hall MD - Fully Assessed Reason for Visit: Results [95] Prescriptions as of 03/13/2023 - levothyroxine (SYNTHROID) 50 mcg tablet Take 1 pill by mouth daily 5 days per week and 2 pills daily 2 days per week - dicyclomine (BENTYL) 10 mg capsule Take 1 capsule by mouth before meals and at bedtime. As needed - LORazepam (ATIVAN) 0.5 mg Take 1 at bedtime as needed - magnesium oxide (MAG-OX) 400 mg (241.3 mg magnesium) tablet Take 1 tablet by mouth once daily. - polyethylene glycol 3350 17 gram/dose powder Take 17 g by mouth once daily. Dissolve dose in 4 - 8 ounces of liquid and take as directed. - melatonin 5 mg tablet Take 5 mg by mouth daily at bedtime. - omeprazole (PRILOSEC) 40 mg capsule Take 1 capsule by mouth twice daily before meals (0600/1600). - hydroCHLOROthiazide (HYDRODIURIL, ESIDRIX) 50 mg tablet Take 1 tablet by mouth once daily. - traZODone (DESYREL) 100 mg tablet Take 1 tablet by mouth daily at bedtime. As directed - buPROPion XL (WELLBUTRIN XL) 300 mg 24 hr tablet Take 1 tablet by mouth once daily. - ondansetron orally disintegrating (ZOFRAN ODT) 4 mg disintegrating tablet Take 1 tablet by mouth every 6 hours as needed for nausea/vomiting. - vit B complex no.12/niacin,B3, (VITAMIN B COMPLEX NO.12-NIACIN ORAL) Take 1 tablet by mouth once daily. - rosuvastatin (CRESTOR) 5 mg tablet Take 1 tablet by mouth daily at bedtime. - aspirin, enteric coated (ADULT LOW DOSE ASPIRIN) 81 mg EC tablet Take 1 tablet by mouth once daily. - Cholecalciferol, Vitamin D3, 50 mcg (2,000 unit) cap Consider 4000 to 5000 IU daily - CALCIUM CARBONATE/VITAMIN D3 (VITAMIN D-3 ORAL) Take by mouth. Problem List As Of Date 03/13/2023 Noted Resolved GENERAL OSTEOARTHROSIS [M15.9] BONE AND CARTILAGE DIS NOS [M89.9, M94.9] 05/15/2003 DIFFUS CYSTIC MASTOPATHY [N60.19] IRRITABLE COLON [K58.9] Obesity, unspecified [E66.9] 07/20/2021 Moderate episode of recurrent major depressive * ALLERGIC RHINITIS NOS [J30.9] ESOPHAGEAL REFLUX [K21.9] Hypothyroidism [E03.9] SCIATICA [M54.30] Hyperlipemia, mixed [E78.2] 03/28/2006 SPINAL STENOSIS-LUMBAR [M48.061] 10/04/2007 Vitamin D deficiency [E55.9] 04/08/2008 Trigger Finger, left ring finger [M65.30] 08/19/2009 Lipoma of Unspecified Site [D17.9] 02/09/2010 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] 01/14/2014 Other and unspecified noninfectious gastroenter*04/09/2014 Essential hypertension [I10] 06/13/2019 Anxiety, generalized [F41.1] 06/13/2019 Abdominal pain, RLQ [R10.31] 06/13/2019 Psychophysiological insomnia [F51.04] 06/13/2019 Constipation [K59.00] 11/28/2022 Disorder of carotid artery (HCC) [I77.9] 02/03/2023 Encounter Status:Closed by CAROLEE SÁNCHEZ on 03/13/23 Normal [facility] COLONOSCOPY SCREENINGon 11-[address] [facility] CT CA SCORE (CARDIAC) WO IVC ONon 07-27-2022 CT CA SCORE (CARDIAC) WO IVCON * * *Final Report* * * DATE OF EXAM: Jul 27 2022 4:14PM [facility] 2050 - CT CA SCORE (CARDIAC) WO IVCON / PROCEDURE REASON: SHORTNESS OF BREATH * * * * Physician Interpretation * * * * Examination: CT Coronary Calcium Score acquired at [facility] Comparison: CT abdomen 05/16/2019 HISTORY: 71 year old Female with concern for coronary artery disease. There is request to assess coronary calcification TECHNIQUE: SCANNER: Multi-detector CT technology was employed ([employer] Revolution HD multi-slice scanner). PROTOCOL: Sequential imaging with prospective triggering and 3-mm slice reconstruction was performed without contrast administration. Scan Range: gio to the base of the heart Scan acquisition was uncomplicated Tube Voltage: [address] Dose-Length Product (DLP): [address] Dose Reduction Employed: Automated exposure control(AEC) and iterative recon CONTRAST: None For optimization of anatomic evaluation, off-line postprocessing was performed on a dedicated workstation by the interpreting physician. STUDY LIMITATIONS: None RESULT: visualized CHEST: visualized Chest wall anatomy: unremarkable visualized LUNGS: unremarkable visualized Mediastinum: small mediastinal lymph nodes, which are not pathologic by size criteria PERICARDIUM: unremarkable CENTRAL PULMONARY ARTERY: normal dimensions, assessment is limited due to lack of contrast enhancement CARDIAC CHAMBERS: assessment is limited to the non-contrast study Overall normal dimensions CENTRAL VENOUS and PULMONARY VENOUS RETURN: normal Coronary Sinus: unremarkable MITRAL and TRICUSPID VALVE: Assessment is limited in the current study no leaflet calcification, no annular calcification AORTA Aortic Valve: Assessment is limited in the current study, no leaflet calcification Aortic Root: Normal size visualized Ascending and Descending Thoracic Aorta: normal size, mild calcification AORTIC DIMENSIONS Aortic Root: 3.3 cm visualized Ascending Thoracic Aorta: 3.2 cm, CORONARY ANATOMY: Normal origin of the coronary arteries mild coronary calcification LAD and RCA Calcium Score (Agatston): LM: 0 LAD: 10.7 LCx: 0 RCA: 4.3 Other: 0 Total: 15 Percentile Rank (age and gender matched relative to reference population): 48 percentile* [* [email or web address]] IMPRESSION: MILD CORONARY CALCIFICATION LAD AND RCA - Total Coronary Calcium Score (CAC) = 15 AU Ward Nurse: PSCB Transcribe Date/Time: Jul 27 2022 4:47P Dictated by : DENNIS MCNALLY MD This examination was interpreted and the report reviewed and electronically signed by: DENNIS MCNALLY MD on Jul 27 2022 5:14PM EST [id number] [facility] CNNURSEon 08-07-2020 CNNURSE Nurse Visit (COVAMD) -------- AMINA TOBAR ([id number]) 1950 F NFR Date Time Provider Department 08/07/20 FINA WEBB ([place]) COVAMD During your visit today, we recorded the following information about you: Allergies As of Date: 08/07/2020 Noted Allergy Reaction AXID (NIZATIDINE) 03/30/2005 4 - Hives CYMBALTA (DULOXETINE) 08/19/2009 Comments: Insomnia LISINOPRIL 07/04/2018 3 - Cough Comments: cough with vomiting LOSARTAN 08/05/2019 3 - Cough MERIDIA (SIBUTRAMINE) 03/30/2005 2 - Rash SULFABENZAMIDE 03/30/2005 5 - Intolerance Comments: red mouth; sulfa med caused adverse effect Date Reviewed: 07/07/2020 Reviewed by: Heather Hercules LPN - Fully Assessed Order(s):[employer] SARS-COV-2 VACCINE 2D DOSE APPT [[id number]] Order #: [id number] Prescriptions as of 08/07/2020 Sig: BUPROPION XL 300 MG 24 HR TAB Take 1 tablet by mouth once d* LORAZEPAM 0.5 MG TABLET Take 1 at bedtime as needed TRAZODONE 100 MG TABLET Take 1 tablet by mouth daily * OMEPRAZOLE 40 MG CAPSULE,MG* Take 1 capsule by mouth twice* CHOLECALCIFEROL (VITAMIN D3) * Consider 4000 to 5000 IU daily LEVOTHYROXINE 75 MCG TABLET Take 1 tablet by mouth daily * HYDROCHLOROTHIAZIDE 50 MG TAB* Take 1 tablet by mouth once d* DICYCLOMINE 10 MG CAPSULE Take 1 capsule by mouth befor* TRAMADOL 50 MG TABLET Take 50 mg by mouth as needed. MELOXICAM 15 MG TABLET Take 1 tablet by mouth once d* HYDROCORTISONE 2.5 % TOPICAL * Apply 1 application to affect* VITAMIN D-3 ORAL Take by mouth. GABAPENTIN 300 MG CAPSULE Take 1 capsule by mouth daily* MULTIVITAL ORAL Take by mouth. ALBUTEROL SULFATE HFA 90 MCG/* Inhale 2 Puffs as instructed * Problem List As Of Date 08/07/2020 Noted Resolved GENERAL OSTEOARTHROSIS [M15.9] BONE AND CARTILAGE DIS NOS [M89.9, M94.9] 05/15/2003 DIFFUS CYSTIC MASTOPATHY [N60.19] IRRITABLE COLON [K58.9] OBESITY NOS [E66.9] Moderate episode of recurrent major depressive * ALLERGIC RHINITIS NOS [J30.9] ESOPHAGEAL REFLUX [K21.9] Hypothyroidism [E03.9] SCIATICA [M54.30] Hyperlipemia, mixed [E78.2] 03/28/2006 SPINAL STENOSIS-LUMBAR [M48.061] 10/04/2007 Vitamin D deficiency [E55.9] 04/08/2008 Trigger Finger, left ring finger [M65.30] 08/19/2009 Lipoma of Unspecified Site [D17.9] 02/09/2010 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] 01/14/2014 Other and unspecified noninfectious gastroenter*04/09/2014 Essential hypertension [I10] 06/13/2019 Anxiety, generalized [F41.1] 06/13/2019 Abdominal pain, RLQ [R10.31] 06/13/2019 Psychophysiological insomnia [F51.04] 06/13/2019 Encounter Status:[facility] 07-17-2020 CNNURSE Nurse Visit (COVAMD) -------- JAKOBAMINA ([id number]) 1950 F NFR Date Time Provider Department 07/17/20 9:45 AM COVID VACCINE SHAD BERNALEriwn During your visit today, we recorded the following information about you: Allergies As of Date: 07/17/2020 Noted Allergy Reaction AXID (NIZATIDINE) 03/30/2005 4 - Hives CYMBALTA (DULOXETINE) 08/19/2009 Comments: Insomnia LISINOPRIL 07/04/2018 3 - Cough Comments: cough with vomiting LOSARTAN 08/05/2019 3 - Cough MERIDIA (SIBUTRAMINE) 03/30/2005 2 - Rash SULFABENZAMIDE 03/30/2005 5 - Intolerance Comments: red mouth; sulfa med caused adverse effect Date Reviewed: 07/07/2020 Reviewed by: Heather Hercules LPN - Fully Assessed Order(s):[employer] COVID-19 VACCINE [[id number]] Order #: [id number] [employer] SARS-COV-2 VACCINE 2D DOSE APPT [[id number]] Order #: [id number] FUTURE Prescriptions as of 07/17/2020 Sig: BUPROPION XL 300 MG 24 HR TAB Take 1 tablet by mouth once d* LORAZEPAM 0.5 MG TABLET Take 1 at bedtime as needed TRAZODONE 100 MG TABLET Take 1 tablet by mouth daily * OMEPRAZOLE 40 MG CAPSULE,MG* Take 1 capsule by mouth twice* CHOLECALCIFEROL (VITAMIN D3) * Consider 4000 to 5000 IU daily LEVOTHYROXINE 75 MCG TABLET Take 1 tablet by mouth daily * HYDROCHLOROTHIAZIDE 50 MG TAB* Take 1 tablet by mouth once d* DICYCLOMINE 10 MG CAPSULE Take 1 capsule by mouth befor* TRAMADOL 50 MG TABLET Take 50 mg by mouth as needed. MELOXICAM 15 MG TABLET Take 1 tablet by mouth once d* HYDROCORTISONE 2.5 % TOPICAL * Apply 1 application to affect* VITAMIN D-3 ORAL Take by mouth. GABAPENTIN 300 MG CAPSULE Take 1 capsule by mouth daily* MULTIVITAL ORAL Take by mouth. ALBUTEROL SULFATE HFA 90 MCG/* Inhale 2 Puffs as instructed * Problem List As Of Date 07/17/2020 Noted Resolved GENERAL OSTEOARTHROSIS [M15.9] BONE AND CARTILAGE DIS NOS [M89.9, M94.9] 05/15/2003 DIFFUS CYSTIC MASTOPATHY [N60.19] IRRITABLE COLON [K58.9] OBESITY NOS [E66.9] Moderate episode of recurrent major depressive * ALLERGIC RHINITIS NOS [J30.9] ESOPHAGEAL REFLUX [K21.9] Hypothyroidism [E03.9] SCIATICA [M54.30] Hyperlipemia, mixed [E78.2] 03/28/2006 SPINAL STENOSIS-LUMBAR [M48.061] 10/04/2007 Vitamin D deficiency [E55.9] 04/08/2008 Trigger Finger, left ring finger [M65.30] 08/19/2009 Lipoma of Unspecified Site [D17.9] 02/09/2010 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] 01/14/2014 Other and unspecified noninfectious gastroenter*04/09/2014 Essential hypertension [I10] 06/13/2019 Anxiety, generalized [F41.1] 06/13/2019 Abdominal pain, RLQ [R10.31] 06/13/2019 Psychophysiological insomnia [F51.04] 06/13/2019 Encounter Status:Open Normal [facility] Vital Signs Date Time Vital Sign Value Performing Clinician Gina morton 01-30-2024 11:24-0400 Diastolic blood pressure 72 mm[Hg] Coco Ocampo APRN.CNP Work Phone: [facility] 01-30-2024 11:24-0400 Systolic blood pressure 140 mm[Hg] Coco Ocampo APRN.CNP Work Phone: [facility] 01-30-2024 11:22-0400 Body mass index (BMI) [Ratio] 29.49 kg/m2 Coco Ocampo APRN.CNP Work Phone: [facility] 01-30-2024 11:22-0400 Body temperature 98.2 [degF] Coco Ocampo APRN.CNP Work Phone: [facility] 01-30-2024 11:22-0400 Body weight 70.8 kg Coco Ocampo APRN.CNP Work Phone: [facility] 01-30-2024 11:22-0400 Heart rate 79 /min Coco Ocampo REPAIR ARMATURE WINDER.REVERBERATORY FURNACE OPERATOR Work Phone: [facility] 01-30-2024 11:22-0400 SaO2% (BldA) [Mass fraction] 98 % Coco Ocampo REPAIR ARMATURE WINDER.REVERBERATORY FURNACE OPERATOR Work Phone: [facility] 08-07-2023 08:36-0400 Body height 154.9 cm Fiorella Hall MD Work Phone: [facility] 08-07-2023 08:36-0400 Body mass index (BMI) [Ratio] 27.93 kg/m2 Fiorella Hall MD Work Phone: [facility] 08-07-2023 08:36-0400 Body weight 67.04 kg Fiorella Hall MD Work Phone: [facility] 08-07-2023 08:36-0400 Diastolic blood pressure 76 mm[Hg] Fiorella Hall MD Work Phone: [facility] 08-07-2023 08:36-0400 Heart rate 80 /min Fiorella Hall MD Work Phone: [facility] 08-07-2023 08:36-0400 Systolic blood pressure 124 mm[Hg] Fiorella Hall MD Work Phone: [facility] 03-30-2023 09:58-0500 Diastolic blood pressure 85 mm[Hg] Treatment Wstr Work Phone: [facility] 03-30-2023 09:58-0500 Heart rate 94 /min Treatment Wstr Work Phone: [facility] 03-30-2023 09:58-0500 Systolic blood pressure 144 mm[Hg] Treatment Wstr Work Phone: [facility] 11-28-2022 13:41-0400 Diastolic blood pressure 81 mm[Hg] Sarah Ryan MD Work Phone: [facility] 11-28-2022 13:41-0400 Heart rate 66 /min Sarah Ryan MD Work Phone: [facility] 11-28-2022 13:41-0400 Respiratory rate 16 /min Sarah Ryan MD Work Phone: [facility] 11-28-2022 13:41-0400 SaO2% (BldA) [Mass fraction] 97 % Sarah Ryan MD Work Phone: [facility] 11-28-2022 13:41-0400 Systolic blood pressure 153 mm[Hg] Sarah Ryan MD Work Phone: [facility] 11-28-2022 12:27-0400 Body temperature 97.3 [degF] Sarah Ryan MD Work Phone: [facility] 11-28-2022 12:27-0400 Body weight 72.6 kg Sarah Ryan MD Work Phone: [facility] 11-08-2022 08:17-0400 Body height 157.5 cm Sarah Ryan MD Work Phone: [facility] 11-08-2022 08:17-0400 Body temperature 97.7 [degF] Sarah Ryan MD Work Phone: [facility] 11-08-2022 08:17-0400 Body weight 72.58 kg Sarah Ryan MD Work Phone: [facility] 11-08-2022 08:17-0400 Diastolic blood pressure 68 mm[Hg] Sarah Ryan MD Work Phone: [facility] 11-08-2022 08:17-0400 Heart rate 94 /min Sarah Ryan MD Work Phone: [facility] 11-08-2022 08:17-0400 SaO2% (BldA) [Mass fraction] 98 % Sarah Ryan MD Work Phone: [facility] 11-08-2022 08:17-0400 Systolic blood pressure 108 mm[Hg] Sarah Ryan MD Work Phone: [facility] 11-07-2022 12:39-0400 Body weight 73.03 kg Coco Ocampo APRN.CNP Work Phone: [facility] 11-07-2022 12:39-0400 Diastolic blood pressure 82 mm[Hg] Coco Terrence REPAIR ARMATURE WINDER.REVERBERATORY FURNACE OPERATOR Work Phone: [facility] 11-07-2022 12:39-0400 Heart rate 82 /min Coco Terrence REPAIR ARMATURE WINDER.REVERBERATORY FURNACE OPERATOR Work Phone: [facility] 11-07-2022 12:39-0400 SaO2% (BldA) [Mass fraction] 98 % Coco Terrence REPAIR ARMATURE WINDER.REVERBERATORY FURNACE OPERATOR Work Phone: [facility] 11-07-2022 12:39-0400 Systolic blood pressure 134 mm[Hg] Coco Terrence REPAIR ARMATURE WINDER.REVERBERATORY FURNACE OPERATOR Work Phone: [facility] 08-19-2022 11:27-0400 Diastolic blood pressure 82 mm[Hg] Annemarie Westbrook DO Work Phone: [facility] 08-19-2022 11:27-0400 Heart rate 69 /min Annemarie Westbrook DO Work Phone: [facility] 08-19-2022 11:27-0400 SaO2% (BldA) [Mass fraction] 100 % Annemarie Westbrook DO Work Phone: [facility] 08-19-2022 11:27-0400 Systolic blood pressure 120 mm[Hg] Annemarie Westbrook DO Work Phone: [facility] 07-20-2022 09:29-0500 Diastolic blood pressure 78 mm[Hg] Fiorella Hall MD Work Phone: [facility] 07-20-2022 09:29-0500 Systolic blood pressure 132 mm[Hg] Fiorella Hall MD Work Phone: [facility] 07-20-2022 08:25-0500 Body temperature 97.59 [degF] Fiorella Hall MD Work Phone: [facility] 07-20-2022 08:25-0500 Body weight 71.22 kg Fiorella Hall MD Work Phone: [facility] 07-20-2022 08:25-0500 Heart rate 89 /min Fiorella Hall MD Work Phone: [facility] 07-20-2022 08:25-0500 Respiratory rate 18 /min Fiorella Hall MD Work Phone: [facility] 07-20-2022 08:25-0500 SaO2% (BldA) [Mass fraction] 98 % Fiorella Hall MD Work Phone: [facility] 03-29-2022 08:31-0500 Body height 153.7 cm Annemarie Westbrook DO Work Phone: [facility] 03-29-2022 08:31-0500 Body weight 70.76 kg Annemarie Westbrook DO Work Phone: [facility] 03-29-2022 08:31-0500 Diastolic blood pressure 91 mm[Hg] Annemarie Westbrook DO Work Phone: [facility] 03-29-2022 08:31-0500 Heart rate 90 /min Annemarie Westbrook DO Work Phone: [facility] 03-29-2022 08:31-0500 SaO2% (BldA) [Mass fraction] 99 % Annemarie Westbrook DO Work Phone: [facility] 03-29-2022 08:31-0500 Systolic blood pressure 126 mm[Hg] Annemarie Westbrook DO Work Phone: [facility] 01-14-2022 07:37-0400 Body height 153.7 cm Jeancarlos Vasques REPAIR ARMATURE WINDER.WATER MAINTENANCE SUPERVISOR Work Phone: [facility] 01-14-2022 07:37-0400 Body weight 72.12 kg Jeancarlos Vasques REPAIR ARMATURE WINDER.WATER MAINTENANCE SUPERVISOR Work Phone: [facility] 01-14-2022 07:37-0400 Diastolic blood pressure 70 mm[Hg] Jeancarlos Vasques REPAIR ARMATURE WINDER.WATER MAINTENANCE SUPERVISOR Work Phone: [facility] 01-14-2022 07:37-0400 Heart rate 80 /min Jeancarlos Vasques REPAIR ARMATURE WINDER.WATER MAINTENANCE SUPERVISOR Work Phone: [facility] 01-14-2022 07:37-0400 Respiratory rate 16 /min Jeancarlos Vasques REPAIR ARMATURE WINDER.WATER MAINTENANCE SUPERVISOR Work Phone: [facility] 01-14-2022 07:37-0400 Systolic blood pressure 130 mm[Hg] Jeancarlos Vasques REPAIR ARMATURE WINDER.WATER MAINTENANCE SUPERVISOR Work Phone: [facility] 08-24-2021 10:10-0400 Body height 154.9 cm Annemarie Westbrook DO Work Phone: [facility] 08-24-2021 10:10-0400 Body weight 68.95 kg Annemarie Westbrook DO Work Phone: [facility] 08-24-2021 10:10-0400 Diastolic blood pressure 76 mm[Hg] Annemarie Westbrook DO Work Phone: [facility] 08-24-2021 10:10-0400 Heart rate 71 /min Annemarie Westbrook DO Work Phone: [facility] 08-24-2021 10:10-0400 SaO2% (BldA) [Mass fraction] 97 % Annemarie Westbrook DO Work Phone: [facility] 08-24-2021 10:10-0400 Systolic blood pressure 128 mm[Hg] Annemarie Westbrook DO Work Phone: [facility] 08-13-2021 09:29-0400 Body height 154.9 cm Annemarie Westbrook DO Work Phone: [facility] 08-13-2021 09:29-0400 Body weight 68.95 kg Annemarie Westbrook DO Work Phone: [facility] 08-13-2021 09:29-0400 Diastolic blood pressure 78 mm[Hg] Annemarie Westrbook DO Work Phone: [facility] 08-13-2021 09:29-0400 Heart rate 78 /min Annemarie Westbrook DO Work Phone: [facility] 08-13-2021 09:29-0400 SaO2% (BldA) [Mass fraction] 100 % Annemarie Westbrook DO Work Phone: [facility] 08-13-2021 09:29-0400 Systolic blood pressure 118 mm[Hg] Annemarie Westbrook DO Work Phone: [facility] 07-20-2021 09:20-0500 Diastolic blood pressure 78 mm[Hg] Fiorella Hall MD Work Phone: [facility] 07-20-2021 09:20-0500 Systolic blood pressure 120 mm[Hg] Fiorella Hall MD Work Phone: [facility] 07-20-2021 08:48-0500 Body weight 68.49 kg Fiorella Hall MD Work Phone: [facility] 07-20-2021 08:48-0500 Heart rate 68 /min Fiorella Hall MD Work Phone: [facility] Encounters Encounter Date Encounter Type Care Provider Facility Start: 02-26-2024 End: 02-26-2024 Orders Only Coco Ocampo APRN.REVERBERATORY FURNACE OPERATOR Work Phone: [facility] [place] Start: 02-07-2024 End: 02-07-2024 Telephone encounter Fiorella Hall MD Work Phone: [facility] [place] Comment on above: Appointment Start: 02-07-2024 End: 02-07-2024 ambulatory FIORELLA D TALAMPAS Facility:[facility] Start: 02-02-2024 End: 02-02-2024 ambulatory FIORELLA D TALAMPAS Facility:[facility] Start: 01-30-2024 End: 01-30-2024 ambulatory FIORELLA D TALAMPAS Facility:[facility] Start: 01-30-2024 End: 01-30-2024 Patient encounter procedure Coco Ocampo APRN.REVERBERATORY FURNACE OPERATOR Work Phone: [facility] [place] Comment on above: Acute cystitis witho ut hematuria (Primary Dx) Start: 12-15-2023 ambulatory Patricia Velez MA [facility] Start: 12-15-2023 Patient encounter procedure Patricia Velez MA [facility] [place] Comment on above: Population Health Na vigation Outreach ([facility] Start: 12-04-2023 Telephone encounter Fiorella moreno MD Work Phone: [facility] [place] Comment on above: Patient Update Start: 12-04-2023 End: 12-04-2023 Office outpatient visit 15 minutes Fiorella Hall MD Work Phone: [facility] [place] Comment on above: Gastritis determined by endoscopy (Primary Dx); Chronic RUQ pain; Constipation, unspecified constipation type Start: 12-04-2023 End: 12-04-2023 ambulatory FIORELLA HALL Facility:[facility] Start: 08-07-2023 End: 08-07-2023 ambulatory FIORELLA HALL Facility:[facility] Start: 08-07-2023 End: 08-07-2023 Office outpatient visit 25 minutes Fiorella Hall MD Work Phone: [facility] [place] Comment on above: Vitamin D deficiency (Primary Dx); Essential hypertension; Anxiety, generalized; Acquired hypothyroidism; Recurrent major depressive disorder, in full remission (HCC); Moderate episode of recurrent major depressive disorder (HCC); Disorder of carotid artery (HCC) Start: 08-03-2023 End: 08-03-2023 ambulatory FIORELLA Erwin ARNDTAMPAS Facility:[facility] Start: 04-04-2023 End: 04-04-2023 ambulatory ANNEMARIE WESTBROOK Facility:[facility] Start: 03-30-2023 End: 03-30-2023 ambulatory Treatment Rm 12 M[facility] Work Phone: Hematology/Oncology Comment on above: Spinal stenosis, lum bar region, without neurogenic claudication (Primary Dx); Sciatica, unspecified laterality Start: 03-29-2023 End: 03-29-2023 ambulatory FIORELLA Erwin HALL Facility:[facility] Start: 03-15-2023 Telephone encounter Coco silverman APRN.CNP Work Phone: Hematology/Oncology Comment on above: RECLAST START Start: 03-15-2023 End: 03-15-2023 ambulatory FIORELLAGabriela HALL Facility:[facility] Start: 03-13-2023 Telephone encounter Coco silverman APRN.REVERBERATORY FURNACE OPERATOR Work Phone: [facility] [place] Comment on above: Results Start: 02-03-2023 End: 02-03-2023 Patient encounter procedure Fiorella Hall MD Work Phone: [facility] [place] Comment on above: Medicare annual well ness visit, subsequent (Primary Dx); Acquired hypothyroidism; Vitamin D deficiency; Gastroesophageal reflux disease without esophagitis; Anxiety, generalized; Asymptomatic postmenopausal state; Disorder of carotid artery (HCC); Breast cancer screening by mammogram; Hypomagnesemia; Encounter for long-term current use of medication Start: 11-28-2022 End: 11-28-2022 Subsequent hospital visit by physician Sarah Ryan MD Work Phone: Ambulatory Surgery Comment on above: Constipation, unspec ified constipation type [K59.00] Start: 11-08-2022 End: 11-08-2022 Patient encounter procedure Sarah Ryan MD Work Phone: General Surgery Comment on above: Constipation, unspec ified constipation type; Screening for colon cancer Start: 11-07-2022 End: 11-07-2022 Patient encounter procedure Coco Ocampo APRN.REVERBERATORY FURNACE OPERATOR Work Phone: [facility] [place] Comment on above: Constipation, unspec ified constipation type (Primary Dx) Start: 08-19-2022 End: 08-19-2022 Patient encounter procedure Annemarie Westbrook DO Work Phone: Vascular Surgery Comment on above: Symptomatic varicose veins of both lower extremities (Primary Dx) Start: 07-27-2022 ambulatory IBAN MELANIE Facility:1 [id number] Start: 07-20-2022 End: 07-20-2022 Office outpatient visit 25 minutes Fiorella Hall MD Work Phone: [facility] [place] Comment on above: Sleep disturbance (P rimary Dx); Anxiety, generalized; Vitamin D deficiency; Acquired hypothyroidism; IFG (impaired fasting glucose); Hyperlipemia, mixed; Encounter for long-term current use of medication; Recurrent major depressive disorder, in full remission (HCC); Gastroesophageal reflux disease without esophagitis; Essential hypertension Start: 07-05-2022 Telephone encounter Fiorella moreno MD Work Phone: [facility] [place] Comment on above: Patient Question Start: 03-29-2022 End: 03-29-2022 Patient encounter procedure Annemarie Westbrook DO Work Phone: Vascular Surgery Comment on above: 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) Start: 03-04-2022 End: 03-04-2022 ambulatory Jeancarlos Layo ERICK.WATER MAINTENANCE SUPERVISOR Work Phone: [facility] [place] Comment on above: COVID-19 virus infec tion (Primary Dx); Need for influenza vaccination Start: 03-04-2022 End: 03-04-2022 Telemedicine consultation with patient Jeancarlos Vasques APRN.WATER MAINTENANCE SUPERVISOR Work Phone: [facility] [place] Start: 03-03-2022 Telephone encounter Fiorella moreno MD Work Phone: [facility] [place] Comment on above: Covid positive on ho me test Start: 01-14-2022 End: 01-14-2022 Patient encounter procedure Jeancarlos Scottcristi SUAREZ.WATER MAINTENANCE SUPERVISOR Work Phone: [facility] [place] Comment on above: Medicare annual well ness visit, subsequent (Primary Dx); Encounter for immunization; Encounter for screening mammogram for breast cancer; Acquired hypothyroidism; Anxiety, generalized; Moderate episode of recurrent major depressive disorder (HCC); Psychophysiological insomnia; Essential hypertension; Gastroesophageal reflux disease without esophagitis; Hyperlipemia, mixed; Vitamin D deficiency Start: 11-29-2021 Telephone encounter Fiorella moreno MD Work Phone: [facility] [place] Comment on above: Patient Question; Or ders Start: 11-24-2021 ambulatory Alejandra main [facility] Comment on above: Population Health Na vigation Outreach ([facility]) Start: 08-24-2021 End: 08-24-2021 Patient encounter procedure Annemarie Erwin Westbrook DO Work Phone: Vascular Surgery Comment on above: 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) Start: 08-13-2021 End: 08-13-2021 Patient encounter procedure Annemarie Westbrook DO Work Phone: Vascular Surgery Comment on above: Symptomatic varicose veins of both lower extremities (Primary Dx) Start: 07-20-2021 End: 07-20-2021 Office outpatient visit 25 minutes Fiorella Hall MD Work Phone: [facility] [place] Comment on above: Anxiety with depress ion (Primary Dx); Acquired hypothyroidism; Essential hypertension; Vitamin D deficiency; Moderate episode of recurrent major depressive disorder (HCC); Hyperlipemia, mixed; Psychophysiological insomnia; Sleep disturbance Procedures Date Procedure Procedure Detail Performing Clinician Start: 01-30-2024 Urnls dip stick/tabl et rgnt auto w/o microscopy Coco Terrence REPAIR ARMATURE WINDER.REVERBERATORY FURNACE OPERATOR Work Phone: Start: 01-12-2023 Lipid 1996 panel - S elijah or Plasma Fiorella Hall MD Work Phone: Start: 11-28-2022 Colonoscopy flx dx w /collj spec when pfrmd Sarah Ryan MD Work Phone: Start: 11-28-2022 Colonoscopy Fiorella parmar MD Work Phone: Start: 01-31-2022 Mammography Jeancarlos Broo ks REPAIR ARMATURE WINDER.WATER MAINTENANCE SUPERVISOR Work Phone: Start: 01-20-2021 Mammography Annemarie tesfaye DO Work Phone: Start: 04-09-2014 Colonoscopy Annemarie tesfaye DO Work Phone: Plan of Treatment Date Care Activity Detail Author Start: 11-28-2032 Colonoscopy Colonoscopy [facility] Start: 11-28-2032 Colorectal Cancer Screening Colorectal Cancer Screening [facility] Start: 11-28-2032 Screening for malign ant neoplasm of colon [facility] Start: 01-13-2028 Lipid 1996 panel - S elijah or Plasma Lipid Screening [facility] Start: 01-13-2028 Lipid panel Lipid Screening [facility] Start: 07-06-2027 LIPID SCREEN LIPID SCREEN [facility] Start: 02-01-2027 Diabetes Screening Diabetes Screenin g [facility] Start: 08-02-2026 Diabetes Screening Diabetes Screenin g [facility] Start: 07-07-2026 LIPID SCREEN LIPID SCREEN [facility] Start: 01-12-2026 Diabetes Screening Diabetes Screenin g [facility] Start: 07-06-2025 DIABETES SCREEN DIABETES SCREEN [facility] Start: 03-14-2025 End: 03-14-2025 Patient encounter procedure 03/14/2025 8:00 AM EDT Office Visit [facility] [place] [address] [id number] Fiorella Hall MD [address] [place] [id number] Medicare Wellness [facility] [place] Comment on above: Medicare Wellness Start: 03-07-2025 Screening for osteoporosis Bone Dens ity Screening [facility] Start: 02-06-2025 Annual PCP Team Densitometer Reader gerson Disease Visit Annual PCP Team Chronic Disease Visit [facility] Start: 02-06-2025 BP Controlled (<130/80) BP Controlle d (<130/80) [facility] Start: 01-29-2025 Annual PCP Team Densitometer Reader gerson Disease Visit Annual PCP Team Chronic Disease Visit [facility] Start: 2024 RSV Vaccine (1 - 1-d ose 75+ series) RSV Vaccine (1 - 1-dose 75+ series) [facility] Start: 12-03-2024 Annual PCP Team Densitometer Reader gerson Disease Visit Annual PCP Team Chronic Disease Visit [facility] Start: 08-09-2024 End: 08-09-2024 Patient encounter procedure 08/09/2024 8:40 AM EDT Office Visit [facility] [place] [address] [place], [place] [id number] Fiorella Hall MD [address] [place], [place] [id number] 6 mo follow up [facility] [place] Comment on above: 6 mo follow up Start: 08-06-2024 Annual PCP Team Densitometer Reader gerson Disease Visit Annual PCP Team Chronic Disease Visit [facility] Start: 08-06-2024 BP Controlled (<130/80) BP Controlle d (<130/80) [facility] Start: 07-07-2024 DIABETES SCREEN DIABETES SCREEN [facility] Start: 04-09-2024 Colonoscopy [address] [facility] Start: 04-09-2024 COLORECTAL CANCER SCREENING COLORECTAL CANCER SCREENING [facility] Start: 04-03-2024 End: 04-03-2024 ambulatory 04/03/2024 10:00 AM EST Visit (SP) Office Hematology/Oncology [address] [place] [id number] 2nd Floor-Reclast(Auth.Exp. ?)* Hematology/Oncology Comment on above: 2nd Floor-Reclast(Au th.Exp.?)* Start: 04-02-2024 End: 04-02-2024 Patient encounter procedure Vasculary Surgery Comment on above: Stenosis of right ca rotid artery [I65.21] follow up after test ing Start: 03-15-2024 Annual PCP Team Densitometer Reader gerson Disease Visit Annual PCP Team Chronic Disease Visit [facility] Start: 03-15-2024 BP Controlled (<130/80) BP Controlle d (<130/80) [facility] Start: 03-04-2024 End: 03-04-2024 Patient encounter procedure 03/04/2024 8:10 AM EDT Appointment Mammogram [address] [place] [address] Breast cancer screening by mammogram [Z12.31] Mammogram Comment on above: Breast cancer screen ing by mammogram [Z12.31] Start: 03-01-2024 Mammography Mammogram Screening [facility] Start: 03-01-2024 Screening for malign ant neoplasm of breast Mammogram Screening [facility] Start: 02-13-2024 Covid-19 Vaccine ( season) Covid-19 Vaccine ( season) [facility] Comment on above: Postponed from 01/13 (Declined at this time) Start: 02-13-2024 Influenza vaccination Influenza Vacc ine (#1) [facility] Comment on above: Postponed from 01/13 (Declined at this time) Start: 02-07-2024 End: 02-07-2024 Patient encounter procedure 02/07/2024 8:00 AM EDT Office Visit [facility] [address] [place] [address] Fiorella Hall MD [address] [place] [address] Medicare Wellness [facility] Comment on above: Medicare Wellness Start: 02-04-2024 Annual PCP Team Densitometer Reader gerson Disease Visit Annual PCP Team Chronic Disease Visit [facility] Start: 02-04-2024 BP Controlled (<130/80) BP Controlle d (<130/80) [facility] Start: 01-14-2024 Covid-19 Vaccine () Covid-19 Vaccine () [facility] Start: 01-14-2024 Covid-19 Vaccine () Covid-19 Vaccine () [facility] Start: 01-14-2024 Influenza vaccination Influenza Vacc ine (#1) [facility] Start: 11-09-2023 BP CONTROLLED (<130/80) BP CONTROLLE D (<130/80) [facility] Start: 11-08-2023 ANNUAL PCP TEAM ROOM SERVICE CLERK GERSON DISEASE VISIT ANNUAL PCP TEAM CHRONIC DISEASE VISIT [facility] Start: 07-21-2023 ANNUAL PCP TEAM ROOM SERVICE CLERK GERSON DISEASE VISIT ANNUAL PCP TEAM CHRONIC DISEASE VISIT [facility] Start: 07-21-2023 COVID-19 VACCINE (4 - Booster for Pfizer series) COVID-19 VACCINE (4 - Booster for Pfizer series) [facility] Comment on above: Postponed from 04/15 (Declined at this time) Start: 07-21-2023 Urine microalbumin profile [facility] Comment on above: Postponed from 09/08 (Declined at this time) Start: 05-15-2023 Advance Directive Discussion Advance Directive Discussion [facility] Start: 01-31-2023 Mammography [address] [facility] Start: 01-20-2023 End: 03-22-2023 25-hydroxyvitamin D3 [Mass/volume] in Serum or Plasma VITAMIN D 25 HYDROXY Lab Routine Vitamin D deficiency Expected: 01/20/2023 (Approximate), Expires: 03/22/2023 [facility] Work Phone: Comment on above: Expected: 01/20/2023 (Approximate), Expires: 03/22/2023 Start: 01-20-2023 End: 03-22-2023 CBC panel - Blood by Automated count CBC Lab Routine Encounter for long-term current use of medication Expected: 01/20/2023 (Approximate), Expires: 03/22/2023 [facility] Work Phone: Comment on above: Expected: 01/20/2023 (Approximate), Expires: 03/22/2023 Start: 01-20-2023 End: 03-22-2023 Comprehensive metabolic 2000 panel - Serum or Plasma COMP METABOLIC PANEL Lab Routine Encounter for long-term current use of medication IFG (impaired fasting glucose) Expected: 01/20/2023 (Approximate), Expires: 03/22/2023 [facility] Work Phone: Comment on above: Expected: 01/20/2023 (Approximate), Expires: 03/22/2023 Start: 01-20-2023 End: 03-22-2023 Hemoglobin A1c in Blood HGB A1C Lab Routine IFG (impaired fasting glucose) Expected: 01/20/2023 (Approximate), Expires: 03/22/2023 [facility] Work Phone: Comment on above: Expected: 01/20/2023 (Approximate), Expires: 03/22/2023 Start: 01-20-2023 End: 03-22-2023 Lipid 1996 panel - Serum or Plasma LIPID PANEL BASIC Lab Routine Hyperlipemia, mixed Expected: 01/20/2023 (Approximate), Expires: 03/22/2023 [facility] Work Phone: Comment on above: Expected: 01/20/2023 (Approximate), Expires: 03/22/2023 Start: 01-14-2023 BP CONTROLLED (<130/80) BP CONTROLLE D (<130/80) [facility] Start: 01-13-2023 Covid-19 Vaccine () Covid-19 Vaccine () [facility] Start: 01-13-2023 Influenza vaccination INFLUENZA (#1) [facility] Start: 08-24-2022 BP CONTROLLED (<130/80) BP CONTROLLE D (<130/80) [facility] Start: 08-13-2022 BP CONTROLLED (<130/80) BP CONTROLLE D (<130/80) [facility] Start: 07-20-2022 ANNUAL PCP TEAM ROOM SERVICE CLERK GERSON DISEASE VISIT ANNUAL PCP TEAM CHRONIC DISEASE VISIT [facility] Start: 06-15-2022 End: 08-12-2022 25-hydroxyvitamin D3 [Mass/volume] in Serum or Plasma VITAMIN D 25 HYDROXY Lab Routine Vitamin D deficiency Expected: 06/15/2022 (Approximate), Expires: 08/12/2022 [facility] Work Phone: Comment on above: Expected: 06/15/2022 (Approximate), Expires: 08/12/2022 Start: 06-15-2022 End: 08-12-2022 Comprehensive metabolic 2000 panel - Serum or Plasma COMP METABOLIC PANEL Lab Routine Acquired hypothyroidism Essential hypertension Expected: 06/15/2022 (Approximate), Expires: 08/12/2022 [facility] Work Phone: Comment on above: Expected: 06/15/2022 (Approximate), Expires: 08/12/2022 Start: 06-15-2022 End: 08-12-2022 Lipid 1996 panel - Serum or Plasma LIPID PANEL BASIC Lab Routine Hyperlipemia, mixed Expected: 06/15/2022 (Approximate), Expires: 08/12/2022 [facility] Work Phone: Comment on above: Expected: 06/15/2022 (Approximate), Expires: 08/12/2022 Start: 06-15-2022 End: 08-12-2022 Screening mammography bi 2-view breast inc cad CAROLYN SCREENING Radiology Routine Encounter for screening mammogram for breast cancer Expected: 06/15/2022 (Approximate), Expires: 08/12/2022 [facility] Work Phone: Comment on above: Expected: 06/15/2022 (Approximate), Expires: 08/12/2022 Start: 06-15-2022 End: 08-12-2022 Thyrotropin [Units/volume] in Serum or Plasma TSH BLD Lab Routine Acquired hypothyroidism Expected: 06/15/2022 (Approximate), Expires: 08/12/2022 [facility] Work Phone: Comment on above: Expected: 06/15/2022 (Approximate), Expires: 08/12/2022 Start: 05-16-2022 COVID-19 VACCINE (4 - Booster for Pfizer series) COVID-19 VACCINE (4 - Booster for Pfizer series) [facility] Comment on above: Postponed from 06/21 (Insurance Coverage) Postponed from 04/15 (Insurance Coverage) Start: 05-16-2022 Influenza vaccination INFLUENZA (#1) [facility] Comment on above: Postponed from 01/13 (Insurance Coverage) Start: 05-16-2022 Urine microalbumin profile DTA P,TDAP,TD (2 - Td or Tdap) [facility] Comment on above: Postponed from 09/08 (Insurance Coverage) Start: 05-15-2022 ADVANCE DIRECTIVE DISCUSSION ADVANCE DIRECTIVE DISCUSSION [facility] Start: 01-20-2022 Mammography MAMMOGRAM [facility] Start: 01-13-2022 Influenza vaccination INFLUENZA (#1) [facility] Start: 09-08-2021 Urine microalbumin profile [facility] Start: 06-21-2021 COVID-19 VACCINE (4 - Booster for Pfizer series) COVID-19 VACCINE (4 - Booster for Pfizer series) [facility] Start: 05-15-2021 ADVANCE DIRECTIVE DISCUSSION ADVANCE DIRECTIVE DISCUSSION [facility] Start: 04-15-2021 COVID-19 VACCINE (4 - Booster for Pfizer series) COVID-19 VACCINE (4 - Booster for Pfizer series) [facility] Start: 2009 RSV Vaccine (1 - 1-d ose 60+ series) RSV Vaccine (1 - 1-dose 60+ series) [facility] Start: 1994 COLOGUARD (FIT-DNA) COLOGUARD (FIT-D NA) [facility] Start: [address] COLONOGRAPHY [facility] Start: 1994 FECAL OCCULT BLOOD FECAL OCCULT BLOO D [facility] Start: 1994 Screening for malign ant neoplasm of colon [facility] Start: 1994 SIGMOIDOSCOPY SIGMOIDOSCOPY [facility] End: 02-03-2024 25-hydroxyvitamin D3 [Mass/volume] in Serum or Plasma VITAMIN D 25 HYDROXY Lab Routine Vitamin D deficiency Encounter for long-term current use of medication Every 6 months for 3 Occurrences starting 02/03/2023 until 02/03/2024 [facility] Work Phone: Comment on above: Every 6 months for 3 Occurrences starting 02/03/2023 until 02/03/2024 End: 02-03-2024 CBC panel - Blood by Automated count CBC Lab Routine Encounter for long-term current use of medication Every 6 months for 3 Occurrences starting 02/03/2023 until 02/03/2024 [facility] Work Phone: Comment on above: Every 6 months for 3 Occurrences starting 02/03/2023 until 02/03/2024 End: 02-03-2024 Comprehensive metabolic 2000 panel - Serum or Plasma COMP METABOLIC PANEL Lab Routine Encounter for long-term current use of medication Every 6 months for 3 Occurrences starting 02/03/2023 until 02/03/2024 [facility] Work Phone: Comment on above: Every 6 months for 3 Occurrences starting 02/03/2023 until 02/03/2024 End: 03-04-2024 DXA-AXIAL SKELETON DXA-AXIAL SKELETON Radiology Routine Asymptomatic postmenopausal state 1 Occurrences starting 02/03/2023 until 03/04/2024 [facility] Work Phone: Comment on above: 1 Occurrences starti ng 02/03/2023 until 03/04/2024 End: 02-03-2024 Magnesium [Mass/volume] in Serum or Plasma MAGNESIUM BLD Lab Routine Hypomagnesemia Encounter for long-term current use of medication Every 6 months for 3 Occurrences starting 02/03/2023 until 02/03/2024 [facility] Work Phone: Comment on above: Every 6 months for 3 Occurrences starting 02/03/2023 until 02/03/2024 End: 03-04-2024 CAROLYN SCREENING W KIKE CAROLYN SCREENING W KIKE Radiology Routine Breast cancer screening by mammogram 1 Occurrences starting 02/03/2023 until 03/04/2024 [facility] Work Phone: Comment on above: 1 Occurrences starti ng 02/03/2023 until 03/04/2024 End: 11-09-2023 Screening colonoscopy COLONOSCOPY SCREENING Endoscopy Routine Constipation, unspecified constipation type Screening for colon cancer 1 Occurrences starting 11/08/2022 until 11/09/2023 [facility] Work Phone: Comment on above: 1 Occurrences starti ng 11/08/2022 until 11/09/2023 End: 12-02-2022 Thyrotropin [Units/volume] in Serum or Plasma TSH BLD Lab Routine Acquired hypothyroidism Every 2 months for 6 Occurrences starting 12/02/2021 until 12/02/2022 [facility] Work Phone: Comment on above: Every 2 months for 6 Occurrences starting 12/02/2021 until 12/02/2022 End: 02-04-2024 Thyrotropin [Units/volume] in Serum or Plasma TSH BLD Lab Routine Acquired hypothyroidism Every 2 months for 6 Occurrences starting 02/03/2023 until 02/04/2024 [facility] Work Phone: Comment on above: Every 2 months for 6 Occurrences starting 02/03/2023 until 02/04/2024 End: 12-02-2022 Thyroxine (T4) free [Mass/volume] in Serum or Plasma T4 FREE/FREE THYROX Lab Routine Acquired hypothyroidism Every 2 months for 6 Occurrences starting 12/02/2021 until 12/02/2022 [facility] Work Phone: Comment on above: Every 2 months for 6 Occurrences starting 12/02/2021 until 12/02/2022 End: 02-04-2024 Thyroxine (T4) free [Mass/volume] in Serum or Plasma T4 FREE/FREE THYROX Lab Routine Acquired hypothyroidism Every 2 months for 6 Occurrences starting 02/03/2023 until 02/04/2024 [facility] Work Phone: Comment on above: Every 2 months for 6 Occurrences starting 02/03/2023 until 02/04/2024 End: 12-02-2022 Triiodothyronine (T3) Free [Mass/volume] in Serum or Plasma T3 FREE BLD Lab Routine Acquired hypothyroidism Every 2 months for 6 Occurrences starting 12/02/2021 until 12/02/2022 [facility] Work Phone: Comment on above: Every 2 months for 6 Occurrences starting 12/02/2021 until 12/02/2022 End: 02-04-2024 Triiodothyronine (T3) Free [Mass/volume] in Serum or Plasma T3 FREE BLD Lab Routine Acquired hypothyroidism Every 2 months for 6 Occurrences starting 02/03/2023 until 02/04/2024 [facility] Work Phone: Comment on above: Every 2 months for 6 Occurrences starting 02/03/2023 until 02/04/2024 UA DIP B/O UA DIP B/O Lab R outine Acute cystitis without hematuria Ordered: 01/30/2024 [facility] Work Phone: Comment on above: Ordered: 01/30/2024 End: 08-24-2022 US CAROTID ARTERIES [facility] US CAROTID ARTERIES [facility] Vascular Lab Routine Stenosis of right carotid artery 1 Occurrences starting 08/24/2021 until 08/24/2022 [facility] Work Phone: Comment on above: 1 Occurrences starti ng 08/24/2021 until 08/24/2022 End: 03-29-2023 US CAROTID ARTERIES [facility] US CAROTID ARTERIES [facility] Vascular Lab Routine Stenosis of right carotid artery 1 Occurrences starting 03/29/2022 until 03/29/2023 [facility] Work Phone: Comment on above: 1 Occurrences starti ng 03/29/2022 until 03/29/2023 [facility] Immunizations Immunization Date Immunization Notes Care Provider Jadiel garcia 02-10-2023 influenza (aIIV4) vaccine, age 65+ yr, quadrivalent, PF (FLUAD QUAD) Coco Ocampo APRN.REVERBERATORY FURNACE OPERATOR Work Phone: [facility] Work Phone: 02-10-2023 influenza (HD-IIV4) vaccine, age 65+ yr, high dose, quadrivalent, PF (FLUZONE HIGH-DOSE) Coco Ocampo APRN.REVERBERATORY FURNACE OPERATOR Work Phone: [facility] Work Phone: 02-10-2023 influenza virus vacc ine, unspecified formulation Fiorella Hall MD Work Phone: [facility] 02-09-2022 influenza (HD-IIV4) vaccine, age 65+ yr, high dose, quadrivalent, PF (FLUZONE HIGH-DOSE) Fiorella Hall MD Work Phone: [facility] 02-09-2022 influenza, injectabl e, quadrivalent, contains preservative Jeancarlos Vasques APRN.WATER MAINTENANCE SUPERVISOR Work Phone: [facility] Work Phone: 02-11-2021 influenza (HD-IIV4) vaccine, age 65+ yr, high dose, quadrivalent, PF (FLUZONE HIGH-DOSE) Fiorella Hall MD Work Phone: [facility] 08-07-2020 COVID-19 vaccine, ag e 12+ yr (PFIZER-BIONTECH - PURPLE TOP) Annemarie Westbrook DO Work Phone: [facility] 07-17-2020 COVID-19 vaccine, ag e 12+ yr (PFIZER-BIONTECH - PURPLE TOP) Annemarie Westbrook DO Work Phone: [facility] Work Phone: 02-01-2020 influenza (aIIV4) vaccine, age 65+ yr, quadrivalent, PF (FLUAD QUAD) Fiorella Hall MD Work Phone: [facility] 02-01-2020 influenza, high dose seasonal, preservative-free Annemarie Westbrook DO Work Phone: [facility] 03-08-2019 zoster vaccine recombinant Annemarie Westbrook DO Work Phone: [facility] 01-08-2019 influenza, high dose seasonal, preservative-free Annemarie Westbrook DO Work Phone: [facility] 01-08-2019 zoster vaccine recombinant Annemarie Westbrook DO Work Phone: [facility] 08-31-2018 zoster vaccine recombinant Annemarie Westbrook DO Work Phone: [facility] 02-05-2018 influenza, high dose seasonal, preservative-free Annemarie Westbrook DO Work Phone: [facility] 06-20-2016 influenza, high dose seasonal, preservative-free Annemarie Westbrook DO Work Phone: [facility] 06-20-2016 pneumococcal polysaccharide vaccine, 23 valent Annemarie Westbrook DO Work Phone: [facility] 04-07-2015 influenza, high dose seasonal, preservative-free Annemarie Westbrook DO Work Phone: [facility] 01-06-2015 pneumococcal conjuga te vaccine, 13 valent Annemarie Westbrook DO Work Phone: [facility] 03-13-2014 influenza, seasonal, injectable Annemarie Westbrook DO Work Phone: [facility] 04-19-2012 influenza virus vacc ine, unspecified formulation Annemarie Westbrook DO Work Phone: [facility] 09-09-2011 tetanus toxoid, redu lucia diphtheria toxoid, and acellular pertussis vaccine, adsorbed Annemarie Westbrook DO Work Phone: [facility] 03-11-2011 influenza virus vacc ine, unspecified formulation Annemarie Westbrook DO Work Phone: [facility] 03-23-2010 influenza virus vacc ine, unspecified formulation Annemarie Westbrook DO Work Phone: [facility] 04-08-2008 influenza virus vacc ine, unspecified formulation Annemarie Westbrook DO Work Phone: [facility] Work Phone: 03-30-2007 influenza virus vacc ine, unspecified formulation Annemarie Westbrook DO Work Phone: [facility] Work Phone: 03-28-2006 influenza virus vacc ine, unspecified formulation Annemarie Westbrook DO Work Phone: [facility] 05-12-2005 influenza virus vacc ine, unspecified formulation Annemarie Westbrook DO Work Phone: [facility] Work Phone: Payers Date Payer Category Payer Medicare [facility] MEDICARE [facility] MEDIC[facility] ADVANTAGE PPO [id number] 2022-Present [phone] [address] [address] [place] [address] PPO [id number] 2022 Medicare [id number] 2015 Unknown ANTHEM BLUE [facility] AND BLUE [facility] ANTHEM MEDIBLUE ACCESS [id number] 2015-Present [phone] [address] [place] [address] PPO [id number] 2015 Unknown [id number] Social History Date Type Detail Facility Start: 01-14-2022 End: 01-30-2024 Tobacco smoking status NHIS Ex-smoker [facility] Start: 05-15-1986 History of tobacco use Smoker [facility] Start: 08-13-2021 End: 02-07-2024 Alcohol intake Current drinker of alcohol (finding) [facility] Start: 08-13-2021 End: 11-08-2022 Alcohol intake [facility] Start: 12-22-2019 End: 01-10-2022 History SDOH Financial [address] [facility] Start: 12-22-2019 End: 01-10-2022 History SDOH Food Worry [address] [facility] Start: 12-22-2019 End: 01-10-2022 History SDOH Transport Med [address] [facility] Start: 1950 Sex Assigned At Female [facility] Start: 06-20-2021 End: 01-14-2022 Exposure to SARS-CoV-2 (event) Not sure [facility] Start: 08-14-2021 End: 08-24-2021 Exposure to SARS-CoV-2 (event) Unable to assess [facility] Start: 05-15-1986 History of tobacco use Cigarette Smo ker [facility] Work Phone: Start: 01-14-2022 End: 01-30-2024 Tobacco use and exposure Smokeless tobacco non-user [facility] Work Phone: Start: 01-10-2022 History SDOH Alcohol Frequency [address] [facility] Start: 01-10-2022 History SDOH Social Connections Get Together [address] [facility] Start: 02-22-2022 End: 03-04-2022 Exposure to SARS-CoV-2 (event) Yes [facility] Work Phone: Start: 11-08-2022 End: 01-27-2023 [place] [employer] [facility] Has the [place], or [employer] threatened to shut off services in your home in past 12Mo Patient refused [facility] Are you now , , , , never or living with a partner? Refused [facility] Do you feel stress - tense, restless, nervous, or anxious, or unable to sleep at night because your mind is troubled all the time - these days [OSQ] Not at all [facility] (I/We) worried wheth er (my/our) food would run out before (I/we) got money to buy more. DK or Refused [facility] In the past 12 month s, was there a time when you were not able to pay the mortgage or rent on time? No [facility] Start: 05-09-2019 Gender identity Identifies as female gender (finding) [facility] Start: 05-09-2019 Sexual orientation Heterosexual (marc markham) [facility] Are you now , , , , never or living with a partner? [facility] How often to you hav e a drink containing alcohol? 2-4 times a month [facility] How many standard drinks containing alcohol do you have on a typical day? 1 or [address] [facility] How often do you hav e 6 or more drinks on 1 occasion? Never [facility] (I/We) worried wheth er (my/our) food would run out before (I/we) got money to buy more. Never true [facility] Clinical Notes 07-20-2021 to 02-07-2024 Telephone Encounter - Shaniqua Trevino - 02/07/2024 11:38 AM EDTTelephone Encounter - Shaniqua Trevino - 02/07/2024 11:38 AM EDTTelephone Encounter - Deana Mobley LPN - 02/07/2024 9:26 AM EDT Note Date & Type Note Facility 02-07-2024 Telephone encounter Note I called and spoke to Amy and scheduled her for her reclast infusion for 04/03/24 @ 10:00 am, patient confirmed this date, time and location. Shaniqua Neumann [facility] 02-07-2024 Miscellaneous Notes I called and spoke to Amy and scheduled her for her reclast infusion for 04/03/24 @ 10:00 am, patient confirmed this date, time and location. Shaniqua Neumann Patient is needing scheduled for a Reclast infusion on or after 03/30/24. Please call and assist with scheduling. documented in this encounter [facility] 02-07-2024 Telephone encounter Note Patient is needing scheduled for a Reclast infusion on or after 03/30/24. Please call and assist with scheduling. [facility] 01-30-2024 Note HNO ID: [id number] Author: COCO OCAMPO APRN.REVERBERATORY FURNACE OPERATOR Service: ? Author Type: Nurse Practitioner Type: Progress Notes Filed: 01/30/2024 11:48 Note Text: SUBJECTIVE Amina Tobar is a 73 year old female here today for acute concern. Chief Complaint Patient presents with: UTI: symptoms of fatigue started last week but this am she wipe and saw some pink on the toilet paper and floating in toilet. Does complain of burning Has been having mid back pain HPI Amina Tobar is a 73 year old female. She is an established patient of Fiorella Hall MD. Here today acutely for concerns of a possible UTI. Symptoms with an onset of about a week ago. Associated symptoms of fatigue, maybe hematuria, burning, mid-back pain. Not improving. Her medications were reviewed today and her list is now up to date. Medications Current Outpatient Medications Medication Sig ciprofloxacin HCl (CIPRO) 500 mg tablet Take 1 tablet by mouth two times a day for 7 days. hydroCHLOROthiazide 50 mg tablet Take 1 tablet by mouth once daily. LORazepam (ATIVAN) 0.5 mg Take 1 at bedtime as needed levothyroxine (SYNTHROID) 50 mcg tablet Take 1 pill by mouth daily 5 days per week and 2 pills daily 2 days per week dicyclomine (BENTYL) 10 mg capsule Take 1 capsule by mouth before meals and at bedtime. As needed magnesium oxide (MAG-OX) 400 mg (241.3 mg magnesium) tablet Take 1 tablet by mouth once daily. polyethylene glycol 3350 17 gram/dose powder Take 17 g by mouth once daily. Dissolve dose in 4 - 8 ounces of liquid and take as directed. melatonin 5 mg tablet Take 5 mg by mouth daily at bedtime. omeprazole (PRILOSEC) 40 mg capsule Take 1 capsule by mouth twice daily before meals (0600/1600). traZODone (DESYREL) 100 mg tablet Take 1 tablet by mouth daily at bedtime. As directed buPROPion XL (WELLBUTRIN XL) 300 mg 24 hr tablet Take 1 tablet by mouth once daily. ondansetron orally disintegrating (ZOFRAN ODT) 4 mg disintegrating tablet Take 1 tablet by mouth every 6 hours as needed for nausea/vomiting. vit B complex no.12/niacin,B3, (VITAMIN B COMPLEX NO.12-NIACIN ORAL) Take 1 tablet by mouth once daily. aspirin, enteric coated (ADULT LOW DOSE ASPIRIN) 81 mg EC tablet Take 1 tablet by mouth once daily. Cholecalciferol, Vitamin D3, 50 mcg (2,000 unit) cap Consider 4000 to 5000 IU daily CALCIUM CARBONATE/VITAMIN D3 (VITAMIN D-3 ORAL) Take by mouth. No current facility-administered medications for this visit. ALLERGIES Allergen Reactions Axid [Nizatidine] Hives Cymbalta [Duloxetin* Insomnia Lipitor [Atorvastat* Other: See Comments Insomnia, headache and nausea Lisinopril Cough cough with vomiting Losartan Cough Meridia [Sibutramin* Rash Sulfabenzamide Intolerance red mouth; sulfa med caused adverse effect ACTIVE PROBLEM LIST Disorder of Carotid Artery (Hcc) - 02/03/2023 Constipation - 11/28/2022 Essential Hypertension - 06/13/2019 Anxiety, Generalized - 06/13/2019 Abdominal Pain, Rlq - 06/13/2019 Psychophysiological Insomnia - 06/13/2019 Other and Unspecified Noninfectious Gastroenteritis and Colitis(558.9) - 04/09/2014 Parapelvic Renal Cyst - 01/14/2014 Comment: [facility] 12/29/13 Lipoma of Unspecified Site - 02/09/2010 Trigger Finger, left ring finger - 08/19/2009 Vitamin D Deficiency - 04/08/2008 Spinal Stenosis, Lumbar Region, Without Neurogenic Claudication - 10/04/2007 Hyperlipemia, Mixed - 03/28/2006 Sciatica Generalized Osteoarthrosis, Unspecified Site Comment: lumbar spine Diffuse Cystic Mastopathy Irritable Bowel Syndrome Moderate Episode of Recurrent Major Depressive Disorder ([facility]) Comment: with anxiety Allergic Rhinitis, Cause Unspecified Esophageal Reflux Hypothyroidism Disorder of Bone and Cartilage, Unspecified - 05/15/2003 Social History Tobacco Use Smoking status: Former Types: Cigarettes Start date: 05/15/1986 Smokeless tobacco: Never Vaping Use Vaping status: Never Used Substance Use Topics Alcohol use: Yes Alcohol/week: 3.0 standard drinks of alcohol Types: 3 Glasses of Wine (5oz) per week Drug use: No Review of Systems Respiratory: Negative. Cardiovascular: Negative. Genitourinary: Positive for dysuria, frequency and urgency. OBJECTIVE BP 140/72 Pulse 79 Temp (Src) 98.2 (Tympanic) Wt 156 lb 1.4 oz (70.8kg) SpO2 98% Physical Exam Vitals and nursing note reviewed. Constitutional: General: She is awake. She is not in acute distress. Appearance: Normal appearance. She is well-developed and well-groomed. She is not ill-appearing, toxic-appearing or diaphoretic. HENT: Head: Normocephalic. Right Ear: External ear normal. Left Ear: External ear normal. Nose: Nose normal. Eyes: General: Vision grossly intact. Conjunctiva/sclera: Conjunctivae normal. Pupils: Pupils are equal, round, and reactive to light. Neck: Vascular: No JVD. Trachea: Trachea normal. Pulmonary: Effort: Pulmona (more content not included)... [facility] 01-30-2024 History of Present illness Narrative SUBJECTIVE Amina Tobar is a 73 year old female here today for acute concern. Chief Complaint Patient presents with: UTI: symptoms of fatigue started last week but this am she wipe and saw some pink on the toilet paper and floating in toilet. Does complain of burning Has been having mid back pain HPI Amina Tobar is a 73 year old female. She is an established patient of Fiorella Hall MD. Here today acutely for concerns of a possible UTI. Symptoms with an onset of about a week ago. Associated symptoms of fatigue, maybe hematuria, burning, mid-back pain. Not improving. Her medications were reviewed today and her list is now up to date. Medications Current Outpatient Medications Medication Sig ciprofloxacin HCl (CIPRO) 500 mg tablet Take 1 tablet by mouth two times a day for 7 days. hydroCHLOROthiazide 50 mg tablet Take 1 tablet by mouth once daily. LORazepam (ATIVAN) 0.5 mg Take 1 at bedtime as needed levothyroxine (SYNTHROID) 50 mcg tablet Take 1 pill by mouth daily 5 days per week and 2 pills daily 2 days per week dicyclomine (BENTYL) 10 mg capsule Take 1 capsule by mouth before meals and at bedtime. As needed magnesium oxide (MAG-OX) 400 mg (241.3 mg magnesium) tablet Take 1 tablet by mouth once daily. polyethylene glycol 3350 17 gram/dose powder Take 17 g by mouth once daily. Dissolve dose in 4 - 8 ounces of liquid and take as directed. melatonin 5 mg tablet Take 5 mg by mouth daily at bedtime. omeprazole (PRILOSEC) 40 mg capsule Take 1 capsule by mouth twice daily before meals (0600/1600). traZODone (DESYREL) 100 mg tablet Take 1 tablet by mouth daily at bedtime. As directed buPROPion XL (WELLBUTRIN XL) 300 mg 24 hr tablet Take 1 tablet by mouth once daily. ondansetron orally disintegrating (ZOFRAN ODT) 4 mg disintegrating tablet Take 1 tablet by mouth every 6 hours as needed for nausea/vomiting. vit B complex no.12/niacin,B3, (VITAMIN B COMPLEX NO.12-NIACIN ORAL) Take 1 tablet by mouth once daily. aspirin, enteric coated (ADULT LOW DOSE ASPIRIN) 81 mg EC tablet Take 1 tablet by mouth once daily. Cholecalciferol, Vitamin D3, 50 mcg (2,000 unit) cap Consider 4000 to 5000 IU daily CALCIUM CARBONATE/VITAMIN D3 (VITAMIN D-3 ORAL) Take by mouth. No current facility-administered medications for this visit. ALLERGIES Allergen Reactions Axid [Nizatidine] Hives Cymbalta [Duloxetin* Insomnia Lipitor [Atorvastat* Other: See Comments Insomnia, headache and nausea Lisinopril Cough cough with vomiting Losartan Cough Meridia [Sibutramin* Rash Sulfabenzamide Intolerance red mouth; sulfa med caused adverse effect ACTIVE PROBLEM LIST Disorder of Carotid Artery (Hcc) - 02/03/2023 Constipation - 11/28/2022 Essential Hypertension - 06/13/2019 Anxiety, Generalized - 06/13/2019 Abdominal Pain, Rlq - 06/13/2019 Psychophysiological Insomnia - 06/13/2019 Other and Unspecified Noninfectious Gastroenteritis and Colitis(558.9) - 04/09/2014 Parapelvic Renal Cyst - 01/14/2014 Comment: [facility] 12/29/13 Lipoma of Unspecified Site - 02/09/2010 Trigger Finger, left ring finger - 08/19/2009 Vitamin D Deficiency - 04/08/2008 Spinal Stenosis, Lumbar Region, Without Neurogenic Claudication - 10/04/2007 Hyperlipemia, Mixed - 03/28/2006 Sciatica Generalized Osteoarthrosis, Unspecified Site Comment: lumbar spine Diffuse Cystic Mastopathy Irritable Bowel Syndrome Moderate Episode of Recurrent Major Depressive Disorder (Hcc) Comment: with anxiety Allergic Rhinitis, Cause Unspecified Esophageal Reflux Hypothyroidism Disorder of Bone and Cartilage, Unspecified - 05/15/2003 Social History Tobacco Use Smoking status: Former Types: Cigarettes Start date: 05/15/1986 Smokeless tobacco: Never Vaping Use Vaping status: Never Used Substance Use Topics Alcohol use: Yes Alcohol/week: 3.0 standard drinks of alcohol Types: 3 Glasses of Wine (5oz) per week Drug use: No Review of Systems Respiratory: Negative. Cardiovascular: Negative. Genitourinary: Positive for dysuria, frequency and urgency. OBJECTIVE BP 140/72 Pulse 79 Temp (Src) 98.2 (Tympanic) Wt 156 lb 1.4 oz (70.8kg) SpO2 98% Physical Exam Vitals and nursing note reviewed. Constitutional: General: She is awake. She is not in acute distress. Appearance: Normal appearance. She is well-developed and well-groomed. She is not ill-appearing, toxic-appearing or diaphoretic. HENT: Head: Normocephalic. Right Ear: External ear normal. Left Ear: External ear normal. Nose: Nose normal. Eyes: General: Vision grossly intact. Conjunctiva/sclera: Conjunctivae normal. Pupils: Pupils are equal, round, and reactive to light. Neck: Vascular: No JVD. Trachea: Trachea normal. Pulmonary: Effort: Pulmonary effort is normal. No accessory muscle usage, prolonged expiration or respiratory distress. Musculoskeletal: Cervical back: Neck supple. Skin: General: Skin is warm and dry. Capillary Refill: Capillary refill takes less than 2 seconds. Neurological: General: No focal deficit present. Mental Status: She is alert and oriented to person, place, and time. Mental status is at baseline. Psychiatric: Attention and Perception: Attention and perception normal. Mood and Affect: Mood and affect normal. Speech: Speech normal. Behavior: Behavior normal. Behavior is cooperative. Thought Content: Thought content normal. Cognition and Memory: Cognition and memory normal. Judgment: Judgment normal. ASSESSMENT/PLAN: 1. Acute cystitis without hematuria - ICD9: 595.0, ICD10: N30.00 Symptoms and urine dip consistent with UTI, start cipro. - UA DIP B/O - CIPROFLOXACIN 500 MG TABLET Portions of this note have been entered by ancillary staff. I have reviewed and when necessary edited, so that they are an adequate record of my encounter with this patient Please note that parts of this document were created using voice recognition software and therefore may contain grammatical errors. Patient verbalizes understanding of instructions from today's visit and in agreement with treatment plan. Questions answered. Agrees to call the office if questions, concerns of issues with acute symptoms not improving or if they worsen. See diagnoses and orders for additional plan(s). Allergies and medications were reviewed, list was updated, and refills given if needed. Past medical, surgical, social, and family history reviewed and updated as appropriate. Encouraged proper diet & exercise as well as compliance with taking medications. Age-appropriate health preventative measures were discussed. Return if symptoms worsen or fail to improve, for Keep next scheduled appointment.. Coco Ocampo APRN-RICO documented in this encounter [facility] 01-30-2024 Instructions Elo Christianson LPN - 01/30/2024 11:06 AM EDT Images from the original note were not included. Urinary Problem-When to Seek Help? Symptoms of a urinary problem may lead to a bladder infection. Women are at greater risk of a urinary tract infection than are men. Most urinary tract infections in women are caused by bacteria and involve the lower urinary tract including the bladder and urethra. Symptoms: Pain or burning when passing urine, urgency, frequency, blood in the urine, difficult emptying your bladder, and lower abdominal fullness or pressure. Common Causes: Sexual intercourse, menopause, constipation, uncontrolled diabetes, dehydration and feminine products such as tampons, and kidney stones. When to Get Help: Seek medical attention if you get frequent bladder infections, urinary concerns such as leakage, blood in the urine or frequent need to urinate. You may be recommended to get help from a specialist, such as a urologist. Diagnosis & Treatment: Lab testing may include: urinalysis, and urine culture that can be collected in the lab or walk-in clinic. Most bladder infections can easily be treated. A physician, nurse practitioner or physician fitness assistant may treat with a short course of an antibiotic. Delaying treatment can lead to worsening symptoms, like a kidney infection. Self-Care: Avoid a full bladder, bubble baths, bath oils, food and beverages that may irritate the bladder such as caffeine. Avoid spermicide foam and diaphragms Void before and after sexual intercourse Wipe front to back after using the bathroom. Stay hydrated Stop Smoking Follow-up Care: Follow up testing is not needed in healthy young women if symptoms resolve. documented in this encounter [facility] 12-15-2023 Note HNO ID: [id number] Author: PATRICIA VELEZ MA Service: ? Author Type: Library Circulation Clerk Type: Progress Notes Filed: 12/15/2023 15:41 Note Text: POPULATION HEALTH NAVIGATION OUTREACH Action/FYI Spoke with Amy. Scheduled MAMMOGRAMS Reason for Outreach Care Gap/HCC or Scheduling Wellness Visits Care Gaps due: Breast Cancer Screening Patient Contacted: Spoke to patient/parent/or legal guardian Patient identified by name and : Yes Care Gap/HCC/Scheduling Wellness actions taken: Patient scheduled/pended labs: Breast Cancer Screening Navigation Signature: Patricia Velez MA December 15, 2023 1:36 PM [facility] 12-15-2023 History of Present illness Narrative POPULATION HEALTH NAVIGATION OUTREACH Action/FYI Spoke with Amy. Scheduled MAMMOGRAMS Reason for Outreach Care Gap/HCC or Scheduling Wellness Visits Care Gaps due: Breast Cancer Screening Patient Contacted: Spoke to patient/parent/or legal guardian Patient identified by name and : Yes Care Gap/HCC/Scheduling Wellness actions taken: Patient scheduled/pended labs: Breast Cancer Screening Navigation Signature: Patricia Velez MA December 15, 2023 1:36 PM documented in this encounter [facility] 12-15-2023 Note Patient Outreach (TIANA TNAV) AMINA TOBAR ([id number]) 1950 F NFR Date Time Provider Department 12/15/23 AGUSTIN, PATRICIA L NETNAV During your visit today, we recorded the following information about you: Patricia Velez MA 12/15/2023 3:41 PM Signed POPULATION HEALTH NAVIGATION OUTREACH Action/FYI Spoke with Amy. Scheduled MAMMOGRAMS Reason for Outreach Care Gap/HCC or Scheduling Wellness Visits Care Gaps due: Breast Cancer Screening Patient Contacted: Spoke to patient/parent/or legal guardian Patient identified by name and : Yes Care Gap/HCC/Scheduling Wellness actions taken: Patient scheduled/pended labs: Breast Cancer Screening Navigation Signature: Patricia Velez MA December 15, 2023 1:36 PM Allergies As of Date: 12/15/2023 Noted Allergy Reaction AXID (NIZATIDINE) 03/30/2005 4 - Hives CYMBALTA (DULOXETINE) 08/19/2009 Comments: Insomnia LIPITOR (ATORVASTATIN) 11/27/2020 14 - Other: See Comments Comments: Insomnia, headache and nausea LISINOPRIL 07/04/2018 3 - Cough Comments: cough with vomiting LOSARTAN 08/05/2019 3 - Cough MERIDIA (SIBUTRAMINE) 03/30/2005 2 - Rash SULFABENZAMIDE 03/30/2005 5 - Intolerance Comments: red mouth; sulfa med caused adverse effect Date Reviewed: 12/04/2023 Reviewed by: Amarilis Navarro LPN - Fully Assessed Reason for Visit: Population Health Navigation Outreach [3910] Cmt: [facility] Prescriptions as of 12/15/2023 - hydroCHLOROthiazide 50 mg tablet Take 1 tablet by mouth once daily. - LORazepam (ATIVAN) 0.5 mg Take 1 at bedtime as needed - levothyroxine (SYNTHROID) 50 mcg tablet Take 1 pill by mouth daily 5 days per week and 2 pills daily 2 days per week - dicyclomine (BENTYL) 10 mg capsule Take 1 capsule by mouth before meals and at bedtime. As needed - magnesium oxide (MAG-OX) 400 mg (241.3 mg magnesium) tablet Take 1 tablet by mouth once daily. - polyethylene glycol 3350 17 gram/dose powder Take 17 g by mouth once daily. Dissolve dose in 4 - 8 ounces of liquid and take as directed. - melatonin 5 mg tablet Take 5 mg by mouth daily at bedtime. - omeprazole (PRILOSEC) 40 mg capsule Take 1 capsule by mouth twice daily before meals (0600/1600). - traZODone (DESYREL) 100 mg tablet Take 1 tablet by mouth daily at bedtime. As directed - buPROPion XL (WELLBUTRIN XL) 300 mg 24 hr tablet Take 1 tablet by mouth once daily. - ondansetron orally disintegrating (ZOFRAN ODT) 4 mg disintegrating tablet Take 1 tablet by mouth every 6 hours as needed for nausea/vomiting. - vit B complex no.12/niacin,B3, (VITAMIN B COMPLEX NO.12-NIACIN ORAL) Take 1 tablet by mouth once daily. - aspirin, enteric coated (ADULT LOW DOSE ASPIRIN) 81 mg EC tablet Take 1 tablet by mouth once daily. - Cholecalciferol, Vitamin D3, 50 mcg (2,000 unit) cap Consider 4000 to 5000 IU daily - CALCIUM CARBONATE/VITAMIN D3 (VITAMIN D-3 ORAL) Take by mouth. Problem List As Of Date 12/15/2023 Noted Resolved GENERAL OSTEOARTHROSIS [M15.9] BONE AND CARTILAGE DIS NOS [M89.9, M94.9] 05/15/2003 DIFFUS CYSTIC MASTOPATHY [N60.19] IRRITABLE COLON [K58.9] Obesity, unspecified [E66.9] 07/20/2021 Moderate episode of recurrent major depressive * ALLERGIC RHINITIS NOS [J30.9] ESOPHAGEAL REFLUX [K21.9] Hypothyroidism [E03.9] SCIATICA [M54.30] Hyperlipemia, mixed [E78.2] 03/28/2006 SPINAL STENOSIS-LUMBAR [M48.061] 10/04/2007 Vitamin D deficiency [E55.9] 04/08/2008 Trigger Finger, left ring finger [M65.30] 08/19/2009 Lipoma of Unspecified Site [D17.9] 02/09/2010 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 Carafate if can keep bowels going. Might need above only, or add stool softener or Senna. Probiotics are fine to try Low residual foods for now till bowels moving better. documented in this encounter [facility] 12-04-2023 Note HNO ID: [id number] Author: FIORELLA HALL MD Service: ? Author Type: Physician Type: Progress Notes Filed: 01/16/2024 23:09 Note Text: This note was created using [employer] Library[employer]. Subjective Amina Tobar is a 72 year old female. No chief complaint on file. SUBJECTIVE: Amina Tobar is a 72 year old year old lady here today for follow up appointment for review of medical conditions. Gastritis seen on EGD. Gets bloating and pain upper abdomen. Feels like just sits in stomach. Stopped carafate that was causing constipation. Chronic RUQ pain that had seen Dr. Sims before. Told to stop calcium. See assessment and plan for other issues addressed. 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 LORazepam (ATIVAN) 0.5 mg Take 1 at bedtime as needed levothyroxine (SYNTHROID) 50 mcg tablet Take 1 pill by mouth daily 5 days per week and 2 pills daily 2 days per week dicyclomine (BENTYL) 10 mg capsule Take 1 capsule by mouth before meals and at bedtime. As needed magnesium oxide (MAG-OX) 400 mg (241.3 mg magnesium) tablet Take 1 tablet by mouth once daily. polyethylene glycol 3350 17 gram/dose powder Take 17 g by mouth once daily. Dissolve dose in 4 - 8 ounces of liquid and take as directed. melatonin 5 mg tablet Take 5 mg by mouth daily at bedtime. omeprazole (PRILOSEC) 40 mg capsule Take 1 capsule by mouth twice daily before meals (0600/1600). traZODone (DESYREL) 100 mg tablet Take 1 tablet by mouth daily at bedtime. As directed buPROPion XL (WELLBUTRIN XL) 300 mg 24 hr tablet Take 1 tablet by mouth once daily. ondansetron orally disintegrating (ZOFRAN ODT) 4 mg disintegrating tablet Take 1 tablet by mouth every 6 hours as needed for nausea/vomiting. vit B complex no.12/niacin,B3, (VITAMIN B COMPLEX NO.12-NIACIN ORAL) Take 1 tablet by mouth once daily. aspirin, enteric coated (ADULT LOW DOSE ASPIRIN) 81 mg EC tablet Take 1 tablet by mouth once daily. Cholecalciferol, Vitamin D3, 50 mcg (2,000 unit) cap Consider 4000 to 5000 IU daily CALCIUM CARBONATE/VITAMIN D3 (VITAMIN D-3 ORAL) Take by mouth. No current facility-administered medications for this visit. Review of Systems Objective There were no vitals taken for this visit. Physical Exam Constitutional: Appearance: Normal appearance. HENT: Head: Normocephalic. Eyes: Conjunctiva/sclera: Conjunctivae normal. Cardiovascular: Rate and Rhythm: Normal rate and regular rhythm. Heart sounds: Normal heart sounds. Pulmonary: Effort: Pulmonary effort is normal. Breath sounds: Normal breath sounds. Skin: General: Skin is warm and dry. Neurological: General: No focal deficit present. Mental Status: She is alert and oriented to person, place, and time. Psychiatric: Mood and Affect: Mood normal. Behavior: Behavior normal. Thought Content: Thought content normal. Judgment: Judgment normal. Assessment and Plan Encounter Diagnosis ICD-10-CM 1. Gastritis determined by endoscopy K29.70 Reviewed results of EGD and med management; see patient instructions 2. Chronic RUQ pain R10.11 G89.29 Noted prior evaluation. Discussed may be due to gastriitis and constipation issues. Further evaluation and treatment as indicated 3. Constipation, unspecified constipation type K59.00 exacerbated by carafate; see patient instructions Above issues addressed with patient. Patient involved in shared decision making for management of medical issues. History and medications reviewed. Epic updated as needed Refills and/or prescriptions taken care of and meds adjusted as indicated after reviewed history, exam and labs. Health Maintenance reviewed. Updated record and/or ordered tests as recorded. Encouraged on efforts at healthy diet and regular exercise and adequate sleep. See patient instructions. Further evaluation and treatment as indicated. Fiorella Hall MD [facility] 12-04-2023 History of Present illness Narrative This note was created using [employer]. Subjective Amina Tobar is a 72 year old female. No chief complaint on file. SUBJECTIVE: Amina Tobar is a 72 year old year old lady here today for follow up appointment for review of medical conditions. Gastritis seen on EGD. Gets bloating and pain upper abdomen. Feels like just sits in stomach. Stopped carafate that was causing constipation. Chronic RUQ pain that had seen Dr. Sims before. Told to stop calcium. See assessment and plan for other issues addressed. 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 LORazepam (ATIVAN) 0.5 mg Take 1 at bedtime as needed levothyroxine (SYNTHROID) 50 mcg tablet Take 1 pill by mouth daily 5 days per week and 2 pills daily 2 days per week dicyclomine (BENTYL) 10 mg capsule Take 1 capsule by mouth before meals and at bedtime. As needed magnesium oxide (MAG-OX) 400 mg (241.3 mg magnesium) tablet Take 1 tablet by mouth once daily. polyethylene glycol 3350 17 gram/dose powder Take 17 g by mouth once daily. Dissolve dose in 4 - 8 ounces of liquid and take as directed. melatonin 5 mg tablet Take 5 mg by mouth daily at bedtime. omeprazole (PRILOSEC) 40 mg capsule Take 1 capsule by mouth twice daily before meals (0600/1600). traZODone (DESYREL) 100 mg tablet Take 1 tablet by mouth daily at bedtime. As directed buPROPion XL (WELLBUTRIN XL) 300 mg 24 hr tablet Take 1 tablet by mouth once daily. ondansetron orally disintegrating (ZOFRAN ODT) 4 mg disintegrating tablet Take 1 tablet by mouth every 6 hours as needed for nausea/vomiting. vit B complex no.12/niacin,B3, (VITAMIN B COMPLEX NO.12-NIACIN ORAL) Take 1 tablet by mouth once daily. aspirin, enteric coated (ADULT LOW DOSE ASPIRIN) 81 mg EC tablet Take 1 tablet by mouth once daily. Cholecalciferol, Vitamin D3, 50 mcg (2,000 unit) cap Consider 4000 to 5000 IU daily CALCIUM CARBONATE/VITAMIN D3 (VITAMIN D-3 ORAL) Take by mouth. No current facility-administered medications for this visit. Review of Systems Objective There were no vitals taken for this visit. Physical Exam Constitutional: Appearance: Normal appearance. HENT: Head: Normocephalic. Eyes: Conjunctiva/sclera: Conjunctivae normal. Cardiovascular: Rate and Rhythm: Normal rate and regular rhythm. Heart sounds: Normal heart sounds. Pulmonary: Effort: Pulmonary effort is normal. Breath sounds: Normal breath sounds. Skin: General: Skin is warm and dry. Neurological: General: No focal deficit present. Mental Status: She is alert and oriented to person, place, and time. Psychiatric: Mood and Affect: Mood normal. Behavior: Behavior normal. Thought Content: Thought content normal. Judgment: Judgment normal. Assessment and Plan Encounter Diagnosis ICD-10-CM 1. Gastritis determined by endoscopy K29.70 Reviewed results of EGD and med management; see patient instructions 2. Chronic RUQ pain R10.11 G89.29 Noted prior evaluation. Discussed may be due to gastriitis and constipation issues. Further evaluation and treatment as indicated 3. Constipation, unspecified constipation type K59.00 exacerbated by carafate; see patient instructions Above issues addressed with patient. Patient involved in shared decision making for management of medical issues. History and medications reviewed. Epic updated as needed Refills and/or prescriptions taken care of and meds adjusted as indicated after reviewed history, exam and labs. Health Maintenance reviewed. Updated record and/or ordered tests as recorded. Encouraged on efforts at healthy diet and regular exercise and adequate sleep. See patient instructions. Further evaluation and treatment as indicated. Fiorella Hall MD documented in this encounter [facility] 12-04-2023 Telephone encounter Note Patient calls and states that she has had GI issues since she had endoscopy done 4 weeks ago. Patient has been having nausea and some abdominal discomfort after she eats. Patient scheduled with Dr. Hall today to discuss. Ashley Mack RN [facility] 12-04-2023 Miscellaneous Notes Patient calls and states that she has had GI issues since she had endoscopy done 4 weeks ago. Patient has been having nausea and some abdominal discomfort after she eats. Patient scheduled with Dr. Hall today to discuss. Ashley Mack RN documented in this encounter [facility] 08-07-2023 Instructions Fiorella Hall MD - 08/07/2023 9:02 AM EDT Vitamin D3--add 2000 units to whatever dose you are taking now. documented in this encounter [facility] 08-07-2023 Note HNO ID: [id number] Author: FIORELLA HALL MD Service: ? Author Type: Physician Type: Progress Notes Filed: 09/14/2023 23:50 Note Text: This note was created using [employer]. Subjective Amina Tobar is a 72 year old female. Patient presents with: 6 mo follow up SUBJECTIVE: Amina Tobar is a 72 year old year old lady here today for 6 month follow up appointment for review of medical conditions. Chief complaint - Six months check-up - Pain in the lumbar spine area - Issues with prescription refills - Concerns about low vitamin D and magnesium levels - Pain from a recent fall - Recurrent cold sores History of present illness - Patient had a follow-up back shot for lumbar spine pain - Patient had issues with prescription refills for levothyroxine and hydrochlorothiazide - Patient reported low vitamin D and magnesium levels - Patient fell recently, causing pain and bruising in the lumbar area - Patient experiences recurrent cold sores when having a cold or runny nose Past medical history - Patient visited a heart doctor in March - Patient visited a emergency veterinary technician a month ago - Patient has mild arthritis in the hip - Patient has osteoporosis, treated with Reclast infusion Family history Father had diabetes Social history - Patient exercises regularly - Patient has given up sweets for lunch, leading to weight loss Current medications - Levothyroxine, 50 micrograms once a day, five days a week, and two pills on the other two days a week - Hydrochlorothiazide, one pill every day - Lorazepam, 0.5 mg, 30 tablets, as needed - Trazodone, no current need for refill - Rosuvastatin, not currently taking - Omeprazole, taken in the morning - Dicyclomine, taken occasionally for severe abdomen ache - Vitamin D, over the counter, current dosage unknown - Calcium, over the counter, currently taking Caltrate Lab results - Blood sugar improved - Kidney function normal - Liver tests normal - Blood counts normal - TSH is 2, T3 is 2.5, T4 is 1.4 - Magnesium level at lower normal - Vitamin D level low at 27 Imaging results X-ray showed mild arthritis in the hip Physical exam - Heart regular, no murmurs - Lungs clear - No swelling in the lower extremities - Bruise in the lumbar area from recent fall Assessment - Lumbar spine pain - Mild arthritis in the hip - Low vitamin D and magnesium levels - Bruising from recent fall Plan - Recommendation to increase vitamin D intake by 2000 units daily - Continue taking magnesium - Possible orthopedic evaluation for hip pain if it persists - Monitor bruising from fall Prescription Refilled prescriptions for levothyroxine, hydrochlorothiazide, and lorazepam Appointments - Next appointment in January for Medicare Wellness check - Another appointment in July Note drafted by [email or web address] . Note reviewed, edited, and signed by the visit provider. Additional details below: PAST MEDICAL HISTORY Diagnosis Date Allergic rhinitis, cause unspecified Arthritis Depressive disorder, not elsewhere classified with anxiety Diffuse cystic mastopathy Disorder of bone and cartilage, unspecified 05/2003 Esophageal reflux Generalized osteoarthrosis, unspecified site lumbar spine Hypertension Internal hemorrhoids without mention of complication Irritable bowel syndrome Obesity, unspecified Other bursitis disorders right greater trochanter Sciatica Thyrotoxicosis without mention of goiter or other cause, without mention of thyrotoxic crisis or storm 1998 Hyperthyroidism/had radioactive iodine Unspecified hypothyroidism Current Outpatient Medications Medication Sig dicyclomine (BENTYL) 10 mg capsule Take 1 capsule by mouth before meals and at bedtime. As needed magnesium oxide (MAG-OX) 400 mg (241.3 mg magnesium) tablet Take 1 tablet by mouth once daily. melatonin 5 mg tablet Take 5 mg by mouth daily at bedtime. omeprazole (PRILOSEC) 40 mg capsule Take 1 capsule by mouth twice daily before meals (0600/1600). traZODone (DESYREL) 100 mg tablet Take 1 tablet by mouth daily at bedtime. As directed buPROPion XL (WELLBUTRIN XL) 300 mg 24 hr tablet Take 1 tablet by mouth once daily. ondansetron orally disintegrating (ZOFRAN ODT) 4 mg disintegrating tablet Take 1 tablet by mouth every 6 hours as needed for nausea/vomiting. vit B complex no.12/niacin,B3, (VITAMIN B COMPLEX NO.12-NIACIN ORAL) Take 1 tablet by mouth once daily. Cholecalciferol, Vitamin D3, 50 mcg (2,000 unit) cap Consider 4000 to 5000 IU daily hydroCHLOROthiazide 50 mg tablet Take 1 tablet by mouth once daily. LORazepam (ATIVAN) 0.5 mg Take 1 at bedtime as needed levothyroxine (SYNTHROID) 50 mcg tablet Take 1 pill by mouth daily 5 days per week and 2 pills daily 2 days per week polyethylene glycol 3350 17 gram/dose powder Take 17 g by mouth once daily. Dissolve dose in 4 - 8 ounces of liq (more content not included)... [facility] 08-07-2023 History of Present illness Narrative This note was created using NoteWriter. Subjective Amina Tobar is a 72 year old female. Patient presents with: 6 mo follow up SUBJECTIVE: Amina Tobar is a 72 year old year old lady here today for 6 month follow up appointment for review of medical conditions. Chief complaint - Six months check-up - Pain in the lumbar spine area - Issues with prescription refills - Concerns about low vitamin D and magnesium levels - Pain from a recent fall - Recurrent cold sores History of present illness - Patient had a follow-up back shot for lumbar spine pain - Patient had issues with prescription refills for levothyroxine and hydrochlorothiazide - Patient reported low vitamin D and magnesium levels - Patient fell recently, causing pain and bruising in the lumbar area - Patient experiences recurrent cold sores when having a cold or runny nose Past medical history - Patient visited a heart doctor in March - Patient visited a emergency veterinary technician a month ago - Patient has mild arthritis in the hip - Patient has osteoporosis, treated with Reclast infusion Family history Father had diabetes Social history - Patient exercises regularly - Patient has given up sweets for lunch, leading to weight loss Current medications - Levothyroxine, 50 micrograms once a day, five days a week, and two pills on the other two days a week - Hydrochlorothiazide, one pill every day - Lorazepam, 0.5 mg, 30 tablets, as needed - Trazodone, no current need for refill - Rosuvastatin, not currently taking - Omeprazole, taken in the morning - Dicyclomine, taken occasionally for severe abdomen ache - Vitamin D, over the counter, current dosage unknown - Calcium, over the counter, currently taking Caltrate Lab results - Blood sugar improved - Kidney function normal - Liver tests normal - Blood counts normal - TSH is 2, T3 is 2.5, T4 is 1.4 - Magnesium level at lower normal - Vitamin D level low at 27 Imaging results X-ray showed mild arthritis in the hip Physical exam - Heart regular, no murmurs - Lungs clear - No swelling in the lower extremities - Bruise in the lumbar area from recent fall Assessment - Lumbar spine pain - Mild arthritis in the hip - Low vitamin D and magnesium levels - Bruising from recent fall Plan - Recommendation to increase vitamin D intake by 2000 units daily - Continue taking magnesium - Possible orthopedic evaluation for hip pain if it persists - Monitor bruising from fall Prescription Refilled prescriptions for levothyroxine, hydrochlorothiazide, and lorazepam Appointments - Next appointment in January for Medicare Wellness check - Another appointment in July Note drafted by [employer]. Note reviewed, edited, and signed by the visit provider. Additional details below: PAST MEDICAL HISTORY Diagnosis Date Allergic rhinitis, cause unspecified Arthritis Depressive disorder, not elsewhere classified with anxiety Diffuse cystic mastopathy Disorder of bone and cartilage, unspecified 05/2003 Esophageal reflux Generalized osteoarthrosis, unspecified site lumbar spine Hypertension Internal hemorrhoids without mention of complication Irritable bowel syndrome Obesity, unspecified Other bursitis disorders right greater trochanter Sciatica Thyrotoxicosis without mention of goiter or other cause, without mention of thyrotoxic crisis or storm 1998 Hyperthyroidism/had radioactive iodine Unspecified hypothyroidism Current Outpatient Medications Medication Sig dicyclomine (BENTYL) 10 mg capsule Take 1 capsule by mouth before meals and at bedtime. As needed magnesium oxide (MAG-OX) 400 mg (241.3 mg magnesium) tablet Take 1 tablet by mouth once daily. melatonin 5 mg tablet Take 5 mg by mouth daily at bedtime. omeprazole (PRILOSEC) 40 mg capsule Take 1 capsule by mouth twice daily before meals (0600/1600). traZODone (DESYREL) 100 mg tablet Take 1 tablet by mouth daily at bedtime. As directed buPROPion XL (WELLBUTRIN XL) 300 mg 24 hr tablet Take 1 tablet by mouth once daily. ondansetron orally disintegrating (ZOFRAN ODT) 4 mg disintegrating tablet Take 1 tablet by mouth every 6 hours as needed for nausea/vomiting. vit B complex no.12/niacin,B3, (VITAMIN B COMPLEX NO.12-NIACIN ORAL) Take 1 tablet by mouth once daily. Cholecalciferol, Vitamin D3, 50 mcg (2,000 unit) cap Consider 4000 to 5000 IU daily hydroCHLOROthiazide 50 mg tablet Take 1 tablet by mouth once daily. LORazepam (ATIVAN) 0.5 mg Take 1 at bedtime as needed levothyroxine (SYNTHROID) 50 mcg tablet Take 1 pill by mouth daily 5 days per week and 2 pills daily 2 days per week polyethylene glycol 3350 17 gram/dose powder Take 17 g by mouth once daily. Dissolve dose in 4 - 8 ounces of liquid and take as directed. aspirin, enteric coated (ADULT LOW DOSE ASPIRIN) 81 mg EC tablet Take 1 tablet by mouth once daily. CALCIUM CARBONATE/VITAMIN D3 (VITAMIN D-3 ORAL) Take by mouth. No current facility-administered medications for this visit. Review of Systems Objective BP 124/76 Pulse 80 Ht 154.9 cm (5' 1 ) Wt 67 kg (147 lb 12.8 oz) BMI 27.93 kg/m Physical Exam Constitutional: Appearance: Normal appearance. HENT: Head: Normocephalic. Eyes: Conjunctiva/sclera: Conjunctivae normal. Cardiovascular: Rate and Rhythm: Normal rate and regular rhythm. Heart sounds: Normal heart sounds. Pulmonary: Effort: Pulmonary effort is normal. Breath sounds: Normal breath sounds. Skin: General: Skin is warm and dry. Neurological: General: No focal deficit present. Mental Status: She is alert and oriented to person, place, and time. Psychiatric: Mood and Affect: Mood normal. Behavior: Behavior normal. Thought Content: Thought content normal. Judgment: Judgment normal. Latest Ref Rng 07/06/2022 01/12/2023 08/03/2023 Protein, Total 6.3 - 8.0 g/dL 6.5 6.2 (L) 6.5 Albumin 3.9 - 4.9 g/dL 4.0 4.0 4.1 Calcium 8.5 - 10.2 mg/dL 8.9 9.9 9.2 Bilirubin, Total 0.2 - 1.3 mg/dL 0.3 0.3 0.3 Alkaline Phosphatase 34 - 123 U/L 78 78 64 AST 13 - 35 U/L 20 13 14 ALT 7 - 38 U/L 13 7 11 Glucose 74 - 99 mg/dL 127 (H) 117 (H) 102 (H) BUN 7 - 21 mg/dL 15 15 10 Creatinine 0.58 - 0.96 mg/dL 0.85 1.00 (H) 0.80 Sodium 136 - 144 mmol/L 136 138 139 Potassium 3.7 - 5.1 mmol/L 3.8 4.2 4.0 Chloride 97 - 105 mmol/L 100 104 104 CO2 22 - 30 mmol/L 23 23 28 Anion Gap 9 - 18 mmol/L 13 11 7 (L) eGFR >=60 mL/min/1.73m 73 60 78 WBC 3.70 - 11.00 k/uL 6.34 7.19 RBC 3.90 - 5.20 m/uL 4.42 4.45 Hemoglobin 11.5 - 15.5 g/dL 13.6 13.9 Hematocrit 36.0 - 46.0 % 40.1 40.7 MCV 80.0 - 100.0 fL 90.7 91.5 MCH 26.0 - 34.0 pg 30.8 31.2 MCHC 30.5 - 36.0 g/dL 33.9 34.2 RDW-CV 11.5 - 15.0 % 12.5 13.1 Platelet Count 150 - 400 k/uL 282 243 MPV 9.0 - 12.7 fL 9.6 9.4 Absolute nRBC <0.01 k/uL <0.01 <0.01 Cholesterol, Total <200 mg/dL 228 (H) 221 (H) Triglyceride <150 mg/dL 71 75 HDL Cholesterol >39 mg/dL 83 70 Non HDL Cholesterol <130 mg/dL 145 (H) 151 (H) Fasting Time hrs 10 12 VLDL Cholesterol <30 mg/dL 14 15 TC:HDL Ratio <5.10 2.75 3.16 LDL Cholesterol <100 mg/dL 131 (H) 136 (H) LDL:HDL Ratio <2.54 1.58 1.94 Hemoglobin A1C 4.3 - 5.6 % 5.6 Estimated Average Glucose mg/dL 114 Free T4 0.9 - 1.7 ng/dL 1.4 1.3 1.4 Free T3 2.3 - 4.1 pg/mL 2.9 3.3 2.5 TSH 0.270 - 4.200 mIU/L 1.660 0.383 2.000 Vitamin D 25 Hydroxy 31.0 - 80.0 ng/mL 29.6 (L) 29.3 (L) 27.0 (L) Magnesium 1.7 - 2.3 mg/dL 1.7 Legend: (H) High (L) Low Assessment and Plan Encounter Diagnosis ICD-10-CM 1. Vitamin D deficiency E55.9 2. Essential hypertension I10 hydroCHLOROthiazide 50 mg tablet 3. Anxiety, generalized F41.1 LORazepam (ATIVAN) 0.5 mg Lorazepam from last year lasted tll now. Helps to have on hand 4. Acquired hypothyroidism E03.9 levothyroxine (SYNTHROID) 50 mcg tablet 5. Recurrent major depressive disorder, in full remission (HCC) F33.42 Fiorella Hall MD documented in this encounter [facility] 04-04-2023 Note HNO ID: [id number] Author: Annemarie Westbrook, DO Service: ? Author Type: Physician Type: Progress Notes Filed: 04/04/2023 9:49 AM Note Text: [facility] [place] DEPARTMENT OF VASCULAR SURGERY OUTPATIENT VISIT DATE April 04, 2023 OUTPATIENT VISIT TYPE ESTABLISHED SERVICE DATE: 04/04/2023 SERVICE TIME: 9:33 AM PRIMARY CARE PHYSICIAN: Fiorella Hall MD HISTORY OF PRESENT ILLNESS: Ms. Tobar is a 72 year old female who presents today for a vascular surgery follow-up visit follow on symptomatic varicose veins and sclerotherapy and carotid artery stenosis. She denies any focal neurologic deficit. PAST MEDICAL HISTORY Diagnosis Date Allergic rhinitis, cause unspecified Arthritis Depressive disorder, not elsewhere classified with anxiety Diffuse cystic mastopathy Disorder of bone and cartilage, unspecified 05/2003 Esophageal reflux Generalized osteoarthrosis, unspecified site lumbar spine Hypertension Internal hemorrhoids without mention of complication Irritable bowel syndrome Obesity, unspecified Other bursitis disorders right greater trochanter Sciatica Thyrotoxicosis without mention of goiter or other cause, without mention of thyrotoxic crisis or storm 1998 Hyperthyroidism/had radioactive iodine Unspecified hypothyroidism PAST SURGICAL HISTORY Procedure Laterality Date BACK SURGERY HX COLONOSCOPY FLX DX W/COLLJ SPEC WHEN PFRMD 07/02/2007 COLONOSCOPY FLX DX W/COLLJ SPEC WHEN PFRMD 04/09/2014 Colonoscopy ESOPHAGOGASTRODUODENOSCOPY TRANSORAL DIAGNOSTIC 12/1991 EGD ESOPHAGOGASTRODUODENOSCOPY TRANSORAL DIAGNOSTIC 02/27/2020 EGD EYE SURGERY HX Bilateral cataract extraction and lens implants PAST SURGICAL HISTORY OF cataract surgery--right July 2015,left August 2015 SIGMOIDOSCOPY FLX DX W/COLLJ SPEC BR/WA IF PFRMD Sigmoidoscopy, flexible SKIN BIOPSY HX TONSILLECTOMY HX TONSILLECTOMY PRIMARY/SECONDARY Tonsillectomy/adenoidectomy SOCIAL HISTORY Social History Tobacco Use Smoking status: Former Types: Cigarettes Start date: 05/15/1986 Smokeless tobacco: Never Vaping Use Vaping Use: Never used Substance Use Topics Alcohol use: Yes Alcohol/week: 3.0 standard drinks of alcohol Types: 3 Glasses of Wine (5oz) per week Drug use: No MEDICATIONS: levothyroxine (SYNTHROID) 50 mcg tablet Take 1 pill by mouth daily 5 days per week and 2 pills daily 2 days per week dicyclomine (BENTYL) 10 mg capsule Take 1 capsule by mouth before meals and at bedtime. As needed LORazepam (ATIVAN) 0.5 mg Take 1 at bedtime as needed magnesium oxide (MAG-OX) 400 mg (241.3 mg magnesium) tablet Take 1 tablet by mouth once daily. polyethylene glycol 3350 17 gram/dose powder Take 17 g by mouth once daily. Dissolve dose in 4 - 8 ounces of liquid and take as directed. melatonin 5 mg tablet Take 5 mg by mouth daily at bedtime. omeprazole (PRILOSEC) 40 mg capsule Take 1 capsule by mouth twice daily before meals (0600/1600). hydroCHLOROthiazide (HYDRODIURIL, ESIDRIX) 50 mg tablet Take 1 tablet by mouth once daily. traZODone (DESYREL) 100 mg tablet Take 1 tablet by mouth daily at bedtime. As directed buPROPion XL (WELLBUTRIN XL) 300 mg 24 hr tablet Take 1 tablet by mouth once daily. ondansetron orally disintegrating (ZOFRAN ODT) 4 mg disintegrating tablet Take 1 tablet by mouth every 6 hours as needed for nausea/vomiting. aspirin, enteric coated (ADULT LOW DOSE ASPIRIN) 81 mg EC tablet Take 1 tablet by mouth once daily. Cholecalciferol, Vitamin D3, 50 mcg (2,000 unit) cap Consider 4000 to 5000 IU daily CALCIUM CARBONATE/VITAMIN D3 (VITAMIN D-3 ORAL) Take by mouth. vit B complex no.12/niacin,B3, (VITAMIN B COMPLEX NO.12-NIACIN ORAL) Take 1 tablet by mouth once daily. rosuvastatin (CRESTOR) 5 mg tablet Take 1 tablet by mouth daily at bedtime. (Patient not taking: Reported on 03/15/2023) ALLERGIES: ALLERGIES Allergen Reactions Axid [Nizatidine] Hives Cymbalta [Duloxetin* Insomnia Lipitor [Atorvastat* Other: See Comments Insomnia, headache and nausea Lisinopril Cough cough with vomiting Losartan Cough Meridia [Sibutramin* Rash Sulfabenzamide Intolerance red mouth; sulfa med caused adverse effect PHYSICAL EXAM: BP 149/84 (BP Site: Left Arm, BP Position: Sitting, BP Cuff Size: Regular Adult) Pulse 74 SpO2 100% General: Alert and oriented Integumentary: Normal color, no rash, no lesions. HEENT: EOM, pupils equal, round and reactive. Cardiovascular: Pulse regular. Lungs: No chest deformities or chest wall tenderness. Abdomen: Not examined Extremities: Varicose veins Neurological: Normal cognition and motor skills. Vascular: Radial Pulse Right: Normal - Left: Normal Diagnostic tests reviewed for today's visit: Most recent labs Most recent imaging Carotid Duplex Compared to prior study of 02/24/2022, No significant change. RIGHT SIDE Common carotid artery: Plaque visualize (more content not included)... [facility] 03-15-2023 Miscellaneous Notes Scheduled with patient Start email sent 1st attempt: When pt returns call please assist in scheduling Please flip orders to Portal for scheduling Thank you! Images from the original note were not included. Coco Ocampo APRN.[facility]/Onc Psr Patient has orders for reclast infusions, can we please get her set up for this? Thank you!! Coco documented in this encounter [facility] 03-15-2023 Note HNO ID: [id number] Author: Coco Ocampo APRN.[employer] Service: ? Author Type: Nurse Practitioner Type: Progress Notes Filed: 03/15/2023 8:53 AM Note Text: SUBJECTIVE Amina Tobar is a 72 year old female here today for a check up on her medical problems. Chief Complaint Patient presents with: F/U on Bone Density Results HPI Amina Tobar is a 72 year old female. Recent bone density showed progression of osteopenia to osteoporosis. She is taking calcium and vitamin D. Exercising regularly. Trying to avoid falls. Some trouble with pills, interested in Reclast infusions. Her medications were reviewed today and her list is now up to date. Medications Current Outpatient Medications Medication Sig levothyroxine (SYNTHROID) 50 mcg tablet Take 1 pill by mouth daily 5 days per week and 2 pills daily 2 days per week dicyclomine (BENTYL) 10 mg capsule Take 1 capsule by mouth before meals and at bedtime. As needed LORazepam (ATIVAN) 0.5 mg Take 1 at bedtime as needed magnesium oxide (MAG-OX) 400 mg (241.3 mg magnesium) tablet Take 1 tablet by mouth once daily. polyethylene glycol 3350 17 gram/dose powder Take 17 g by mouth once daily. Dissolve dose in 4 - 8 ounces of liquid and take as directed. melatonin 5 mg tablet Take 5 mg by mouth daily at bedtime. omeprazole (PRILOSEC) 40 mg capsule Take 1 capsule by mouth twice daily before meals (0600/1600). hydroCHLOROthiazide (HYDRODIURIL, ESIDRIX) 50 mg tablet Take 1 tablet by mouth once daily. traZODone (DESYREL) 100 mg tablet Take 1 tablet by mouth daily at bedtime. As directed buPROPion XL (WELLBUTRIN XL) 300 mg 24 hr tablet Take 1 tablet by mouth once daily. ondansetron orally disintegrating (ZOFRAN ODT) 4 mg disintegrating tablet Take 1 tablet by mouth every 6 hours as needed for nausea/vomiting. vit B complex no.12/niacin,B3, (VITAMIN B COMPLEX NO.12-NIACIN ORAL) Take 1 tablet by mouth once daily. aspirin, enteric coated (ADULT LOW DOSE ASPIRIN) 81 mg EC tablet Take 1 tablet by mouth once daily. Cholecalciferol, Vitamin D3, 50 mcg (2,000 unit) cap Consider 4000 to 5000 IU daily CALCIUM CARBONATE/VITAMIN D3 (VITAMIN D-3 ORAL) Take by mouth. rosuvastatin (CRESTOR) 5 mg tablet Take 1 tablet by mouth daily at bedtime. (Patient not taking: Reported on 03/15/2023) Current Facility-Administered Medications Medication Dose Route Frequency [START ON 04/19/2023] zoledronic acid 5 mg PREMIX piggyback (RECLAST) 5 mg INTRAVENOUS ONCE (AMB - Up to 30 Days) ALLERGIES Allergen Reactions Axid [Nizatidine] Hives Cymbalta [Duloxetin* Insomnia Lipitor [Atorvastat* Other: See Comments Insomnia, headache and nausea Lisinopril Cough cough with vomiting Losartan Cough Meridia [Sibutramin* Rash Sulfabenzamide Intolerance red mouth; sulfa med caused adverse effect ACTIVE PROBLEM LIST Disorder of Carotid Artery (Hcc) - 02/03/2023 Constipation - 11/28/2022 Essential Hypertension - 06/13/2019 Anxiety, Generalized - 06/13/2019 Abdominal Pain, Rlq - 06/13/2019 Psychophysiological Insomnia - 06/13/2019 Other and Unspecified Noninfectious Gastroenteritis and Colitis(558.9) - 04/09/2014 Parapelvic Renal Cyst - 01/14/2014 Comment: [facility] 12/29/13 Lipoma of Unspecified Site - 02/09/2010 Trigger Finger, left ring finger - 08/19/2009 Vitamin D Deficiency - 04/08/2008 Spinal Stenosis, Lumbar Region, Without Neurogenic Claudication - 10/04/2007 Hyperlipemia, Mixed - 03/28/2006 Sciatica Generalized Osteoarthrosis, Unspecified Site Comment: lumbar spine Diffuse Cystic Mastopathy Irritable Bowel Syndrome Moderate Episode of Recurrent Major Depressive Disorder ([facility]) Comment: with anxiety Allergic Rhinitis, Cause Unspecified Esophageal Reflux Hypothyroidism Disorder of Bone and Cartilage, Unspecified - 05/15/2003 Social History Tobacco Use Smoking status: Former Types: Cigarettes Start date: 05/15/1986 Smokeless tobacco: Never Vaping Use Vaping Use: Never used Substance Use Topics Alcohol use: Yes Alcohol/week: 7.5 standard drinks of alcohol Types: 3 Glasses of Wine (5oz) per week Drug use: No Review of Systems Respiratory: Negative. Cardiovascular: Negative. Musculoskeletal: Negative. OBJECTIVE BP 118/70 Pulse 84 Wt 159 lb (72.1kg) SpO2 98% Physical Exam Vitals and nursing note reviewed. Constitutional: General: She is awake. She is not in acute distress. Appearance: Normal appearance. She is well-developed and well-groomed. She is not ill-appearing, toxic-appearing or diaphoretic. HENT: Head: Normocephalic. Right Ear: External ear normal. Left Ear: External ear normal. Nose: Nose normal. Eyes: General: Vision grossly intact. Conjunctiva/sclera: Conjunctivae normal. Pupils: Pupils are equal, round, and reactive to light. Neck: Vascular: No JVD. Trachea: Trachea normal. Cardiovascular: Rate and Rhythm: Normal rate and regular rhythm. Pulses: (more content not included)... [facility] 03-13-2023 Miscellaneous Notes TC to patient who verbalized understanding of providers message below. Patient is agreeable to OV with Anahy Ocampo and per patient preference, is now scheduled 03/15/23. Nothing further at this time. TYSON Lopez Please let Amy know her bone density scan done at [facility] does show osteoporosis which has progressed from osteopenia on the prior bone density scan done in 2019. She should continue her calcium and vitamin D. Try to do strength training (light weights) exercise at least 2-3 times weekly. With the progression of her bone weakening taking medication to help treat this is ideal. Please see if she would be able to come in for an appointment to discuss her options for this since there are a few different options. documented in this encounter [facility] 02-03-2023 Instructions Fiorella Hall MD - 02/03/2023 8:53 AM EDT Screening schedule The following prevention plan is recommended: Mammogram Screening due on 01/31/2023 WHAT YOU CAN DO TO PREVENT FALLS Many falls can be prevented. By making some changes, you can lower your chances of falling. Four things YOU can do to prevent falls for you* and your caregiver 1. Begin a regular exercise program Exercise is one of the most important ways to lower your chances of falling. It makes you stronger and helps you feel better. Exercises that improve balance and coordination (like Godwin Chi) are the most helpful. Lack of exercise leads to weakness and increases your chances of falling. Ask your doctor or health care provider about the best type of exercise program for you. 2. Have your health care provider review your medicines Have your doctor or pharmacist review all the medicines you take, even [id number] medicines. As you get older, the way medicines work in your body can change. Some medicines, or combinations of medicines, can make you sleepy or dizzy and can cause you to fall. 3. Have your vision checked Have your eyes checked by an eye doctor at least once a year. You may be wearing the wrong glasses or have a condition like glaucoma or cataracts that limits your vision. Poor vision can increase your chances of falling. 4. Make your home safer About half of all falls happen at home. To make your home safer: Remove things you can trip over (like papers, books, clothes, and shoes) from stairs and places where you walk. Remove small throw rugs or use double-sided tape to keep the rugs from slipping. Keep items you use often in cabinets you can reach easily without using a step stool. Have grab bars put in next to your toilet and in the tub or shower. Use non-slip mats in the bathtub and on shower floors. Improve the lighting in your home. As you get older, you need brighter lights to see well. Hang light-weight curtains or shades to reduce glare. Have handrails and lights put in on all staircases. Wear shoes both inside and outside the house. Avoid going barefoot or wearing slippers. For more information, contact: Centers for Disease Control and Prevention www.cdc.gov/injury * This information may not apply if you have certain medical conditions. BONE MINERAL DENSITY PATIENT INSTRUCTIONS ======= Bone mineral density testing measures the amount of calcium in certain parts of your bones. This information determines how strong your bones are. The test is used to detect osteoporosis, a disease in which the bone's mineral content and density are low, increasing a person's risk of fractures. The lumbar spine (lower back) and the hip are the skeletal sites usually examined. For the test, remember that: 1. You cannot take this test if you are . 2. Eat a normal diet on the day of the test. 3. Take your medications as you normally would. 4. DO NOT take calcium supplements (such as Tums) for 24 hours before the test. 5. On the day of the test, leave valuables (jewelry or credit cards) at home. 6. The test should be performed prior to oral, rectal or IV contrast studies, or at least 7 days after any of these studies. For the test, you may be asked to wear a hospital gown. You will lie on your back, on a padded table, in a comfortable position. Generally, you can resume your usual activities immediately. documented in this encounter [facility] 02-03-2023 History of Present illness Narrative This note was created using [employer]LL[employer]. Subjective Amina Tobar is a 72 year old female. HISTORY Amina Tobar is a 72 year old lady here for Medicare Wellness (see documentation below) and yearly exam and follow up appointment. Requested mammogram to be done at [facility]. Needed order faxed. Reflux and rhinitis noted. Has noted sometimes feeling heart beat in her neck and also hair seeming to fall out more though hair dressed says okay. Sometimes misses doses of Vitamin D. Taking 4 1000 units per day. Helps to have bentyl on hand for IBS issues. Still has some pills left from 2019 RX. Needs refill on lorazepam. lasted till now. Helps to have on hand. Noted trouble tolerating statins. Did not tolerate Crestor even with pulse dosing. Caused leg aching. PAST MEDICAL HISTORY Diagnosis Date Allergic rhinitis, cause unspecified Arthritis Depressive disorder, not elsewhere classified with anxiety Diffuse cystic mastopathy Disorder of bone and cartilage, unspecified 05/2003 Esophageal reflux Generalized osteoarthrosis, unspecified site lumbar spine Hypertension Internal hemorrhoids without mention of complication Irritable bowel syndrome Obesity, unspecified Other bursitis disorders right greater trochanter Sciatica Thyrotoxicosis without mention of goiter or other cause, without mention of thyrotoxic crisis or storm 1998 Hyperthyroidism/had radioactive iodine Unspecified hypothyroidism Current Outpatient Medications Medication Sig polyethylene glycol 3350 17 gram/dose powder Take 17 g by mouth once daily. Dissolve dose in 4 - 8 ounces of liquid and take as directed. melatonin 5 mg tablet Take 5 mg by mouth daily at bedtime. LORazepam (ATIVAN) 0.5 mg Take 1 at bedtime as needed omeprazole (PRILOSEC) 40 mg capsule Take 1 capsule by mouth twice daily before meals (0600/1600). hydroCHLOROthiazide (HYDRODIURIL, ESIDRIX) 50 mg tablet Take 1 tablet by mouth once daily. traZODone (DESYREL) 100 mg tablet Take 1 tablet by mouth daily at bedtime. As directed buPROPion XL (WELLBUTRIN XL) 300 mg 24 hr tablet Take 1 tablet by mouth once daily. ondansetron orally disintegrating (ZOFRAN ODT) 4 mg disintegrating tablet Take 1 tablet by mouth every 6 hours as needed for nausea/vomiting. levothyroxine (SYNTHROID) 75 mcg tablet Take 1 tablet by mouth daily before breakfast. Except 05/16 tab vit B complex no.12/niacin,B3, (VITAMIN B COMPLEX NO.12-NIACIN ORAL) Take 1 tablet by mouth once daily. rosuvastatin (CRESTOR) 5 mg tablet Take 1 tablet by mouth daily at bedtime. aspirin, enteric coated (ADULT LOW DOSE ASPIRIN) 81 mg EC tablet Take 1 tablet by mouth once daily. Cholecalciferol, Vitamin D3, 50 mcg (2,000 unit) cap Consider 4000 to 5000 IU daily dicyclomine (BENTYL) 10 mg capsule Take 1 capsule by mouth before meals and at bedtime. As needed magnesium oxide (MAG-OX) 400 mg (241.3 mg magnesium) tablet Take 1 tablet by mouth twice daily for 7 days. CALCIUM CARBONATE/VITAMIN D3 (VITAMIN D-3 ORAL) Take by mouth. No current facility-administered medications for this visit. ALLERGIES Allergen Reactions Axid [Nizatidine] Hives Cymbalta [Duloxetin* Insomnia Lipitor [Atorvastat* Other: See Comments Insomnia, headache and nausea Lisinopril Cough cough with vomiting Losartan Cough Meridia [Sibutramin* Rash Sulfabenzamide Intolerance red mouth; sulfa med caused adverse effect FAMILY HISTORY Problem Relation Age of Onset Diabetes Father also CAD/PA Coronary Artery Disease Mother CABG at age 80 Cancer Other aunt lung cancer Social History Tobacco Use Smoking status: Former Types: Cigarettes Start date: 05/15/1986 Smokeless tobacco: Never Vaping Use Vaping Use: Never used Substance Use Topics Alcohol use: Yes Alcohol/week: 7.5 standard drinks of alcohol Types: 3 Glasses of Wine (5oz) per week Drug use: No Review of Systems Objective BP (P) 112/68 (BP Site: Left Arm, BP Position: Sitting, BP Cuff Size: Regular Adult) Pulse (P) 66 Ht (P) 154.9 cm (5' 1 ) Wt (P) 73.5 kg (162 lb) BMI (P) 30.61 kg/m Physical Exam Vitals reviewed. Constitutional: Appearance: She is well-developed. HENT: Head: Normocephalic and atraumatic. Right Ear: External ear normal. Left Ear: External ear normal. Nose: Nose normal. Eyes: Conjunctiva/sclera: Conjunctivae normal. Neck: Thyroid: No thyromegaly. Vascular: No carotid bruit. Cardiovascular: Rate and Rhythm: Normal rate and regular rhythm. Pulses: Normal pulses. Heart sounds: Normal heart sounds. No murmur heard. No friction rub. No gallop. Pulmonary: Effort: Pulmonary effort is normal. Breath sounds: Normal breath sounds. Abdominal: General: Bowel sounds are normal. There is no distension. Palpations: Abdomen is soft. There is no mass. Tenderness: There is no abdominal tenderness. Musculoskeletal: General: No deformity. Normal range of motion. Right lower leg: No edema. Left lower leg: No edema. Lymphadenopathy: Cervical: No cervical adenopathy. Skin: General: Skin is warm and dry. Coloration: Skin is not jaundiced or pale. Findings: No rash. Neurological: General: No focal deficit present. Mental Status: She is alert and oriented to person, place, and time. Cranial Nerves: No cranial nerve deficit. Sensory: No sensory deficit. Motor: No abnormal muscle tone. Coordination: Coordination normal. Deep Tendon Reflexes: Reflexes normal. Psychiatric: Attention and Perception: Attention and perception normal. Mood and Affect: Mood and affect normal. Speech: Speech normal. Behavior: Behavior normal. Thought Content: Thought content normal. Cognition and Memory: Cognition and memory normal. Judgment: Judgment normal. Component Latest Ref Rng & Units 07/07/2021 12/06/2021 07/06/2022 01/12/2023 WBC 3.70 - 11.00 k/uL 5.34 6.34 RBC 3.90 - 5.20 m/uL 4.55 4.42 Hemoglobin 11.5 - 15.5 g/dL 14.4 13.6 Hematocrit 36.0 - 46.0 % 41.4 40.1 MCV 80.0 - 100.0 fL 91.0 90.7 MCH 26.0 - 34.0 pg 31.6 30.8 MCHC 30.5 - 36.0 g/dL 34.8 33.9 RDW-CV 11.5 - 15.0 % 12.6 12.5 Platelet Count 150 - 400 k/uL 256 282 MPV 9.0 - 12.7 fL 9.4 9.6 Neut% % 41.8 Abs Neut (ANC) 1.45 - 7.50 k/uL 2.22 Lymph% % 45.5 Abs Lymph 1.00 - 4.00 k/uL 2.43 [place]% % 9.4 Abs [place] <0.87 k/uL 0.50 Eosin% % 2.4 Abs Eosin <0.46 k/uL 0.13 Baso% % 0.9 Abs Baso <0.11 k/uL 0.05 Nucleated Reds 0 /100 WBC 0.0 Absolute nRBC <0.01 k/uL <0.01 <0.01 Diff Type Auto Diff Protein, Total 6.3 - 8.0 g/dL 6.3 6.5 6.2 (L) Albumin 3.9 - 4.9 g/dL 4.0 4.0 4.0 Calcium 8.5 - 10.2 mg/dL 9.1 8.9 9.9 Bilirubin, Total 0.2 - 1.3 mg/dL 0.3 0.3 0.3 Alkaline Phosphatase 34 - 123 U/L 87 78 78 AST 13 - 35 U/L 18 20 13 Glucose 74 - 99 mg/dL 110 (H) 127 (H) 117 (H) BUN 7 - 21 mg/dL 11 15 15 Creatinine 0.58 - 0.96 mg/dL 0.80 0.85 1.00 (H) Sodium 136 - 144 mmol/L 137 136 138 Potassium 3.7 - 5.1 mmol/L 3.9 3.8 4.2 Chloride 97 - 105 mmol/L 102 100 104 CO2 22 - 30 mmol/L 25 23 23 Anion Gap 9 - 18 mmol/L 10 13 11 ALT 7 - 38 U/L 13 13 7 eGFR- >60 eGFR-All Other Races . >60 eGFR >=60 mL/min/1.73m 73 60 Cholesterol, Total <200 mg/dL 186 228 (H) 221 (H) Triglyceride <150 mg/dL 90 71 75 HDL Cholesterol >39 mg/dL 78 83 70 LDL Cholesterol <100 mg/dL 90 131 (H) 136 (H) Non HDL Cholesterol <130 mg/dL 108 145 (H) 151 (H) Fasting Time hrs 12 10 12 VLDL Cholesterol <30 mg/dL 18 14 15 TC:HDL Ratio <5.10 2.38 2.75 3.16 LDL:HDL Ratio <2.54 1.15 1.58 1.94 Hemoglobin A1C 4.3 - 5.6 % 5.8 (H) 5.6 Estimated Average Glucose mg/dL 120 114 Magnesium 1.7 - 2.3 mg/dL 1.8 TSH 0.270 - 4.200 mIU/L 0.670 1.120 1.660 0.383 Free T4 0.9 - 1.7 ng/dL 1.4 1.3 1.4 1.3 Vitamin D 25 Hydroxy 31.0 - 80.0 ng/mL 33.0 29.6 (L) 29.3 (L) Free T3 2.3 - 4.1 pg/mL 3.0 2.9 3.3 Assessment and Plan Encounter Diagnosis ICD-10-CM 1. Medicare annual wellness visit, subsequent Z00.00 2. Acquired hypothyroidism E03.9 levothyroxine (SYNTHROID) 50 mcg tablet 3. Vitamin D deficiency E55.9 4. Gastroesophageal reflux disease without esophagitis K21.9 5. Anxiety, generalized F41.1 LORazepam (ATIVAN) 0.5 mg Lorazepam from last year lasted tll now. Helps to have on hand 6. Asymptomatic postmenopausal state Z78.0 DXA-AXIAL SKELETON 7. Disorder of carotid artery (HCC) I77.[address] Westbrook 8. Breast cancer screening by mammogram Z12.31 CAROLYN SCREENING W KIKE 9. Hypomagnesemia E83.42 magnesium oxide (MAG-OX) 400 mg (241.3 mg magnesium) tablet Patient here for yearly exam and follow up. Above issues addressed with patient. Patient involved in shared decision making for management of medical issues. History and medications reviewed. Epic updated as needed Refills taken care of and meds adjusted as indicated after reviewed history, exam and labs. Health Maintenance reviewed. Updated record and/or ordered tests as recorded. Encouraged on efforts at healthy diet and regular exercise and adequate sleep. Stable on current meds. Continue present management. Further evaluation and treatment as indicated. Amina Tobar is a 72 year old female here for a Medicare wellness visit. Health Risk Assessment In general, health is: Very good Concerns with balance: Not at all Concerns with teeth or dentures: Not at all Concerns with sexual function: Not at all [place] anxious, stressed, angry, irritable, lonely, isolated, or had thoughts of hurting themself: Not at all Has little interest or pleasure in doing things: Not at all Bothered by feeling down, depressed, or hopeless: Not at all Needs help with grocery shopping, cooking, housework, bathing, grooming, dressing, eating, sitting or standing, walking, using the toilet, handling finances, taking medications, using the telephone, or driving: No Following safety precautions in the home environment and vehicle: removed throw rugs from floors, installed grab bars in the bathroom, handrails in stairwells, having adequate lighting, wearing seatbelt at all times?: Yes Smokes cigarettes, vapes, or chew tobacco: No Eats healthy foods including fruits, vegetables, whole grains, and fiber-rich foods: More than half the days Number of days per week engages in exercise: 3 days Average alcohol consumption: Patient refused Current Providers Specialists: I have reviewed specialist-related care of the patient in the medical record. Outside specialists seen: Dr. Michelle (Pain management), Dr. Currie ([facility]) Medical/Family history review Reviewed and updated problem list, medical/surgical/family/social history, medications, and allergies. Opioid use review Patient is not currently using opioids. Depression screening Depression Screening PHQ-2 Score 07/04/2018 0 Depression screening tool completed and reviewed. Based on score and interview, patient is already diagnosed with depression. Screening tool discussed with patient, and I recommended continuing current plan of care. Cognitive screening Mini Cog Score: Score: 5 Functional Observation Was the patient's timed Up & Go test unsteady or ? 12 seconds? No Advance Care Planning End of Life planning discussed, including patient's advanced directive wishes: Yes See Exam above Visual acuity (required for Welcome to Medicare): follows with optometry/ophthalmology Hearing Evaluation: within normal limits Assessment/Plan Medicare annual wellness visit, subsequent (Z00.00) - Counseled on healthy diet and regular exercise - Fall avoidance - Vaccines recommended COVID-19, Influenza, and Tdap at pharmacy--can get at pharmacy along wtih RSV vaccine - Colorectal cancer screening recommended - agrees to Colonoscopy and had this year so is up to date - Mammogram recommended and ordered- Bone density ordered--[facility] Additional Concerns The following concerns were also discussed with the patient: See above documentation above Medicare Wellness documentation. Fiorella Hall MD documented in this encounter [facility] 11-28-2022 Nurse Note Arrived in phase II via cart. Left lateral position. Sedated, but responds to verbal stimuli. Color normal; skin warm and dry. Respirations wnl and unlabored. Abdomen soft and with + bowel sounds in quads X 4. Patient resting comfortably. Family at bedside. Carey Rothman RN documented in this encounter [facility] 11-28-2022 History and physical note UPDATED PROCEDURAL SEDATION HISTORY AND PHYSICAL EXAMINATION SERVICE DATE: 11/28/2022 SERVICE TIME: 12:08 PHYSICAL EXAM MUST BE COMPLETED ON ADMISSION PROCEDURE: colonoscopy, possible biopsies Procedure Indications: constipation The History and Physical (completed in the past 30 days) has been reviewed and the patient has been examined. The contents accurately reflect the patient's condition with the following additions or revisions since the H&P was completed. ASA Class: ASA Class:: Patient with mild systemic disease Examination indicates no changes. AIRWAY: Airway Visualization of Uvula: Yes Mouth opening greater than 2 fingerbreadths: Yes Neck Full Range of Motion: Yes LUNGS: Lungs clear to auscultation CARDIAC: Regular rhythm,Regular rate Provisional Diagnosis/Treatment Plan: colonoscopy, possible biopsies SEDATION GOAL: Moderate This H&P can be found in the Electronic Medical Record. SIGNATURE: Sarah Ryan MD PATIENT NAME: Amina Tobar DATE: November 28, 2022 TIME: 12:08 PM Source Note - Sarah Ryan MD - 11/28/2022 12:45 PM EDT HISTORY AND PHYSICAL Amina Tobar 1950 REFERRING PHYSICIAN: Coco Ocampo APRN.CNP CHIEF COMPLAINT: Consult (Constipation, colonoscopy consult) HPI: The patient is a 71 year old female referred for endoscopy. Amina notes constipation. She has noted this for the past 6-8 months. She would have to digitally disimpact herselft. She has tried special teas, miralax, benefiber, etc. She also notes bilateral intermittent cramping lower abdominal pain. She would note a BM every other day. She admits to hard stools and sticky She has noted right sided abdominal pain - specific and same location for years She describes this pain as aching and burning pain She had a colonoscopy 9 years ago. She notes no colon cancer in her immediate family. She denies blood in stools PAST MEDICAL HISTORY PAST MEDICAL HISTORY Diagnosis Date Allergic rhinitis, cause unspecified Arthritis Depressive disorder, not elsewhere classified with anxiety Diffuse cystic mastopathy Disorder of bone and cartilage, unspecified 05/2003 Esophageal reflux Generalized osteoarthrosis, unspecified site lumbar spine Hypertension Internal hemorrhoids without mention of complication Irritable bowel syndrome Obesity, unspecified Other bursitis disorders right greater trochanter Sciatica Thyrotoxicosis without mention of goiter or other cause, without mention of thyrotoxic crisis or storm 1998 Hyperthyroidism/had radioactive iodine Unspecified hypothyroidism PAST SURGICAL HISTORY PAST SURGICAL HISTORY Procedure Laterality Date COLONOSCOPY FLX DX W/COLLJ SPEC WHEN PFRMD 07/02/07 COLONOSCOPY FLX DX W/COLLJ SPEC WHEN PFRMD 04/09/14 Colonoscopy ESOPHAGOGASTRODUODENOSCOPY TRANSORAL DIAGNOSTIC 12/1991 EGD ESOPHAGOGASTRODUODENOSCOPY TRANSORAL DIAGNOSTIC 02/27/2020 EGD EYE SURGERY HX Bilateral cataract extraction and lens implants PAST SURGICAL HISTORY OF cataract surgery--right July 2015,left August 2015 SIGMOIDOSCOPY FLX DX W/COLLJ SPEC BR/WA IF PFRMD Sigmoidoscopy, flexible SKIN BIOPSY HX TONSILLECTOMY HX TONSILLECTOMY PRIMARY/SECONDARY <AGE 12 Tonsillectomy/adenoidectomy Current Outpatient Medications Medication Sig polyethylene glycol 3350 17 gram/dose powder Take 17 g by mouth once daily. Dissolve dose in 4 - 8 ounces of liquid and take as directed. melatonin 5 mg tablet Take 5 mg by mouth daily at bedtime. LORazepam (ATIVAN) 0.5 mg Take 1 at bedtime as needed omeprazole (PRILOSEC) 40 mg capsule Take 1 capsule by mouth twice daily before meals (0600/1600). hydroCHLOROthiazide (HYDRODIURIL, ESIDRIX) 50 mg tablet Take 1 tablet by mouth once daily. traZODone (DESYREL) 100 mg tablet Take 1 tablet by mouth daily at bedtime. As directed buPROPion XL (WELLBUTRIN XL) 300 mg 24 hr tablet Take 1 tablet by mouth once daily. levothyroxine (SYNTHROID) 75 mcg tablet Take 1 tablet by mouth daily before breakfast. Except 05/16 tab Cholecalciferol, Vitamin D3, 50 mcg (2,000 unit) cap Consider 4000 to 5000 IU daily dicyclomine (BENTYL) 10 mg capsule Take 1 capsule by mouth before meals and at bedtime. As needed peg 3350-Electrolytes (GOLYTELY) 236-22.74-6.74 -5.86 gram suspension Take 4,000 mL by mouth one time only for 1 dose. Refer to printed prep instructions from your provider. ondansetron orally disintegrating (ZOFRAN ODT) 4 mg disintegrating tablet Take 1 tablet by mouth every 6 hours as needed for nausea/vomiting. (Patient not taking: No sig reported) vit B complex no.12/niacin,B3, (VITAMIN B COMPLEX NO.12-NIACIN ORAL) Take 1 tablet by mouth once daily. (Patient not taking: No sig reported) rosuvastatin (CRESTOR) 5 mg tablet Take 1 tablet by mouth daily at bedtime. (Patient not taking: Reported on 11/07/2022) aspirin, enteric coated (ADULT LOW DOSE ASPIRIN) 81 mg EC tablet Take 1 tablet by mouth once daily. (Patient not taking: Reported on 11/08/2022) magnesium oxide (MAG-OX) 400 mg (241.3 mg magnesium) tablet Take 1 tablet by mouth twice daily for 7 days. CALCIUM CARBONATE/VITAMIN D3 (VITAMIN D-3 ORAL) Take by mouth. (Patient not taking: Reported on 11/07/2022) ALLERGIES: Axid [Nizatidine], Cymbalta [Duloxetine], Lipitor [Atorvastatin], Lisinopril, Losartan, Meridia [Sibutramine], and Sulfabenzamide PERSONAL HISTORY: SOCIAL HISTORY Social History Tobacco Use Smoking status: Former Types: Cigarettes Start date: 05/15/1986 Smokeless tobacco: Never Vaping Use Vaping Use: Never used Substance Use Topics Alcohol use: Yes Alcohol/week: 7.5 standard drinks Types: 3 Glasses of Wine (5oz) per week Drug use: No FAMILY HISTORY FAMILY HISTORY Problem Relation Age of Onset Diabetes Father also CAD/PA Coronary Artery Disease Mother CABG at age 80 Cancer Other aunt lung cancer The review of systems data was entered by the nurse and reviewed by me Nursing Notes: More RichardsKRISTIE 11/08/2022 8:20 AM Signed REVIEW OF SYSTEMS: General: The patient denies fatigue, denies weight loss, denies weight gain, denies feeling hot, and denies feelings of cold. Eyes: The patient denies glaucoma, notes eye injury/surgery, does not wear glasses or contacts. Ear/Nose/Throat: The patient notes allergies, denies hayfever, denies ear infections, and denies bloody noses. Cardiovascular: The patient denies chest pain, denies heart disease, denies high blood pressure,denies cardiac stent, denies prior heart attack, denies irregular heart beat, denies high cholesterol, denies poor circulation, denies heart failure, other cardiac issues, denies claudication, denies cold feet, denies peripheral arterial stent. Respiratory: The patient denies tuberculosis, denies pneumonia, denies frequent cough, denies pulmonary embolism, denies shortness of breath, and denies coughing up blood. Gastrointestinal: The patient denies difficulty swallowing, notes acid reflux, denies ulcers, denies vomiting, denies jaundice/hepatitis, denies gallbladder problems, denies black or tarry stools, denies hemorrhoids, denies bleeding from rectum, denies diverticulitis, notes constipation, denies diarrhea, denies loss of stool control, and denies hernias. Kidney/Bladder: The patient denies kidney stones, denies urine infections, and denies bloody urine. Skin: The patient denies a history of skin cancer, denies bleeding/changing moles, and denies a history of skin rash. Neurologic: The patient denies a history of epilepsy/convulsions, denies headaches, denies head/spinal injuries, and denies stroke/TIA. Psychiatric: The patient denies psychiatric medications, denies depression, and denies voices, denies substance abuse. Endocrine: The patient notes thyroid disorders, denies diabetes, and denies hormonal problems. Hematologic: The patient denies a history of bruising, denies bleeding, and denies anemia, denies blood clots. Infections: The patient denies a history of measles and mumps, denies rheumatic fever, and denies sexually transmitted diseases. Musculoskeletal: The patient denies back pain/injury, denies back problems, notes sciatica, denies knee/foot trouble, denies arthritis, or denies gout. When was patient's last Mammogram screening? 2022 Last Colonoscopy: 2013 More Richards LPN PHYSICAL EXAMINATION: General: The patient is 71 year old female, well nourished, well hydrated in no acute distress. The patient is oriented to time, place, and person. VITALS: Blood pressure 108/68, pulse 94, temperature 36.5 C (97.7 F), height 157.5 cm (5' 2 ), weight 72.6 kg (160 lb), SpO2 98 %. Body mass index is 29.26 kg/m . Head: Normal cephalic, atraumatic Eyes: pupils are equally round, sclera are clear/anicteric Neck is supple with no tracheal deviation Respiratory: Normal respiratory excursion and pattern. Abdominal exam: benign Extremities: no clubbing, cyanosis or edema. Neuro non focal Psych: normal mood IMPRESSION: constipation PLAN: I have discussed the above with the patient. I have offered colonoscopy , possible biopsies I have explained the procedure to the patient. I have counseled the patient as to the risks of the procedure, including but not limited to: infection, bleeding, injury to any intrabdominal organs such as liver/spleen, perforation of the GI tract, inability to complete the procedure, complications of anesthesia, etc. - the patient understands. The patient wishes to proceed. I have answered all questions to the patient s satisfaction and the patient has no further questions. HISTORY AND PHYSICAL Amina Tobar 1950 REFERRING PHYSICIAN: Coco Ocampo APRN.REVERBERATORY FURNACE OPERATOR CHIEF COMPLAINT: Consult (Constipation, colonoscopy consult) HPI: The patient is a 71 year old female referred for endoscopy. Amina notes constipation. She has noted this for the past 6-8 months. She would have to digitally disimpact herselft. She has tried special teas, miralax, benefiber, etc. She also notes bilateral intermittent cramping lower abdominal pain. She would note a BM every other day. She admits to hard stools and sticky She has noted right sided abdominal pain - specific and same location for years She describes this pain as aching and burning pain She had a colonoscopy 9 years ago. She notes no colon cancer in her immediate family. She denies blood in stools PAST MEDICAL HISTORY PAST MEDICAL HISTORY Diagnosis Date Allergic rhinitis, cause unspecified Arthritis Depressive disorder, not elsewhere classified with anxiety Diffuse cystic mastopathy Disorder of bone and cartilage, unspecified 05/2003 Esophageal reflux Generalized osteoarthrosis, unspecified site lumbar spine Hypertension Internal hemorrhoids without mention of complication Irritable bowel syndrome Obesity, unspecified Other bursitis disorders right greater trochanter Sciatica Thyrotoxicosis without mention of goiter or other cause, without mention of thyrotoxic crisis or storm 1998 Hyperthyroidism/had radioactive iodine Unspecified hypothyroidism PAST SURGICAL HISTORY PAST SURGICAL HISTORY Procedure Laterality Date COLONOSCOPY FLX DX W/COLLJ SPEC WHEN PFRMD 07/02/07 COLONOSCOPY FLX DX W/COLLJ SPEC WHEN PFRMD 04/09/14 Colonoscopy ESOPHAGOGASTRODUODENOSCOPY TRANSORAL DIAGNOSTIC 12/1991 EGD ESOPHAGOGASTRODUODENOSCOPY TRANSORAL DIAGNOSTIC 02/27/2020 EGD EYE SURGERY HX Bilateral cataract extraction and lens implants PAST SURGICAL HISTORY OF cataract surgery--right July 2015,left August 2015 SIGMOIDOSCOPY FLX DX W/COLLJ SPEC BR/WA IF PFRMD Sigmoidoscopy, flexible SKIN BIOPSY HX TONSILLECTOMY HX TONSILLECTOMY PRIMARY/SECONDARY <AGE 12 Tonsillectomy/adenoidectomy Current Outpatient Medications Medication Sig polyethylene glycol 3350 17 gram/dose powder Take 17 g by mouth once daily. Dissolve dose in 4 - 8 ounces of liquid and take as directed. melatonin 5 mg tablet Take 5 mg by mouth daily at bedtime. LORazepam (ATIVAN) 0.5 mg Take 1 at bedtime as needed omeprazole (PRILOSEC) 40 mg capsule Take 1 capsule by mouth twice daily before meals (0600/1600). hydroCHLOROthiazide (HYDRODIURIL, ESIDRIX) 50 mg tablet Take 1 tablet by mouth once daily. traZODone (DESYREL) 100 mg tablet Take 1 tablet by mouth daily at bedtime. As directed buPROPion XL (WELLBUTRIN XL) 300 mg 24 hr tablet Take 1 tablet by mouth once daily. levothyroxine (SYNTHROID) 75 mcg tablet Take 1 tablet by mouth daily before breakfast. Except 05/16 tab Cholecalciferol, Vitamin D3, 50 mcg (2,000 unit) cap Consider 4000 to 5000 IU daily dicyclomine (BENTYL) 10 mg capsule Take 1 capsule by mouth before meals and at bedtime. As needed peg 3350-Electrolytes (GOLYTELY) 236-22.74-6.74 -5.86 gram suspension Take 4,000 mL by mouth one time only for 1 dose. Refer to printed prep instructions from your provider. ondansetron orally disintegrating (ZOFRAN ODT) 4 mg disintegrating tablet Take 1 tablet by mouth every 6 hours as needed for nausea/vomiting. (Patient not taking: No sig reported) vit B complex no.12/niacin,B3, (VITAMIN B COMPLEX NO.12-NIACIN ORAL) Take 1 tablet by mouth once daily. (Patient not taking: No sig reported) rosuvastatin (CRESTOR) 5 mg tablet Take 1 tablet by mouth daily at bedtime. (Patient not taking: Reported on 11/07/2022) aspirin, enteric coated (ADULT LOW DOSE ASPIRIN) 81 mg EC tablet Take 1 tablet by mouth once daily. (Patient not taking: Reported on 11/08/2022) magnesium oxide (MAG-OX) 400 mg (241.3 mg magnesium) tablet Take 1 tablet by mouth twice daily for 7 days. CALCIUM CARBONATE/VITAMIN D3 (VITAMIN D-3 ORAL) Take by mouth. (Patient not taking: Reported on 11/07/2022) ALLERGIES: Axid [Nizatidine], Cymbalta [Duloxetine], Lipitor [Atorvastatin], Lisinopril, Losartan, Meridia [Sibutramine], and Sulfabenzamide PERSONAL HISTORY: SOCIAL HISTORY Social History Tobacco Use Smoking status: Former Types: Cigarettes Start date: 05/15/1986 Smokeless tobacco: Never Vaping Use Vaping Use: Never used Substance Use Topics Alcohol use: Yes Alcohol/week: 7.5 standard drinks Types: 3 Glasses of Wine (5oz) per week Drug use: No FAMILY HISTORY FAMILY HISTORY Problem Relation Age of Onset Diabetes Father also CAD/PA Coronary Artery Disease Mother CABG at age 80 Cancer Other aunt lung cancer The review of systems data was entered by the nurse and reviewed by me Nursing Notes: More RichardsKRISTIE 11/08/2022 8:20 AM Signed REVIEW OF SYSTEMS: General: The patient denies fatigue, denies weight loss, denies weight gain, denies feeling hot, and denies feelings of cold. Eyes: The patient denies glaucoma, notes eye injury/surgery, does not wear glasses or contacts. Ear/Nose/Throat: The patient notes allergies, denies hayfever, denies ear infections, and denies bloody noses. Cardiovascular: The patient denies chest pain, denies heart disease, denies high blood pressure,denies cardiac stent, denies prior heart attack, denies irregular heart beat, denies high cholesterol, denies poor circulation, denies heart failure, other cardiac issues, denies claudication, denies cold feet, denies peripheral arterial stent. Respiratory: The patient denies tuberculosis, denies pneumonia, denies frequent cough, denies pulmonary embolism, denies shortness of breath, and denies coughing up blood. Gastrointestinal: The patient denies difficulty swallowing, notes acid reflux, denies ulcers, denies vomiting, denies jaundice/hepatitis, denies gallbladder problems, denies black or tarry stools, denies hemorrhoids, denies bleeding from rectum, denies diverticulitis, notes constipation, denies diarrhea, denies loss of stool control, and denies hernias. Kidney/Bladder: The patient denies kidney stones, denies urine infections, and denies bloody urine. Skin: The patient denies a history of skin cancer, denies bleeding/changing moles, and denies a history of skin rash. Neurologic: The patient denies a history of epilepsy/convulsions, denies headaches, denies head/spinal injuries, and denies stroke/TIA. Psychiatric: The patient denies psychiatric medications, denies depression, and denies voices, denies substance abuse. Endocrine: The patient notes thyroid disorders, denies diabetes, and denies hormonal problems. Hematologic: The patient denies a history of bruising, denies bleeding, and denies anemia, denies blood clots. Infections: The patient denies a history of measles and mumps, denies rheumatic fever, and denies sexually transmitted diseases. Musculoskeletal: The patient denies back pain/injury, denies back problems, notes sciatica, denies knee/foot trouble, denies arthritis, or denies gout. When was patient's last Mammogram screening? 2022 Last Colonoscopy: 2013 More Richards LPN PHYSICAL EXAMINATION: General: The patient is 71 year old female, well nourished, well hydrated in no acute distress. The patient is oriented to time, place, and person. VITALS: Blood pressure 108/68, pulse 94, temperature 36.5 C (97.7 F), height 157.5 cm (5' 2 ), weight 72.6 kg (160 lb), SpO2 98 %. Body mass index is 29.26 kg/m . Head: Normal cephalic, atraumatic Eyes: pupils are equally round, sclera are clear/anicteric Neck is supple with no tracheal deviation Respiratory: Normal respiratory excursion and pattern. Abdominal exam: benign Extremities: no clubbing, cyanosis or edema. Neuro non focal Psych: normal mood IMPRESSION: constipation PLAN: I have discussed the above with the patient. I have offered colonoscopy , possible biopsies I have explained the procedure to the patient. I have counseled the patient as to the risks of the procedure, including but not limited to: infection, bleeding, injury to any intrabdominal organs such as liver/spleen, perforation of the GI tract, inability to complete the procedure, complications of anesthesia, etc. - the patient understands. The patient wishes to proceed. I have answered all questions to the patient s satisfaction and the patient has no further questions. documented in this encounter [facility] 11-08-2022 History of Present illness Narrative HISTORY AND PHYSICAL Amina Tobar 1950 REFERRING PHYSICIAN: Coco Ocampo APRN.REVERBERATORY FURNACE OPERATOR CHIEF COMPLAINT: Consult (Constipation, colonoscopy consult) HPI: The patient is a 71 year old female referred for endoscopy. Amina notes constipation. She has noted this for the past 6-8 months. She would have to digitally disimpact herselft. She has tried special teas, miralax, benefiber, etc. She also notes bilateral intermittent cramping lower abdominal pain. She would note a BM every other day. She admits to hard stools and sticky She has noted right sided abdominal pain - specific and same location for years She describes this pain as aching and burning pain She had a colonoscopy 9 years ago. She notes no colon cancer in her immediate family. She denies blood in stools PAST MEDICAL HISTORY Diagnosis Date Allergic rhinitis, cause unspecified Arthritis Depressive disorder, not elsewhere classified with anxiety Diffuse cystic mastopathy Disorder of bone and cartilage, unspecified 05/2003 Esophageal reflux Generalized osteoarthrosis, unspecified site lumbar spine Hypertension Internal hemorrhoids without mention of complication Irritable bowel syndrome Obesity, unspecified Other bursitis disorders right greater trochanter Sciatica Thyrotoxicosis without mention of goiter or other cause, without mention of thyrotoxic crisis or storm 1998 Hyperthyroidism/had radioactive iodine Unspecified hypothyroidism PAST SURGICAL HISTORY Procedure Laterality Date COLONOSCOPY FLX DX W/COLLJ SPEC WHEN PFRMD 07/02/07 COLONOSCOPY FLX DX W/COLLJ SPEC WHEN PFRMD 04/09/14 Colonoscopy ESOPHAGOGASTRODUODENOSCOPY TRANSORAL DIAGNOSTIC 12/1991 EGD ESOPHAGOGASTRODUODENOSCOPY TRANSORAL DIAGNOSTIC 02/27/2020 EGD EYE SURGERY HX Bilateral cataract extraction and lens implants PAST SURGICAL HISTORY OF cataract surgery--right July 2015,left August 2015 SIGMOIDOSCOPY FLX DX W/COLLJ SPEC BR/WA IF PFRMD Sigmoidoscopy, flexible SKIN BIOPSY HX TONSILLECTOMY HX TONSILLECTOMY PRIMARY/SECONDARY <AGE 12 Tonsillectomy/adenoidectomy Current Outpatient Medications Medication Sig polyethylene glycol 3350 17 gram/dose powder Take 17 g by mouth once daily. Dissolve dose in 4 - 8 ounces of liquid and take as directed. melatonin 5 mg tablet Take 5 mg by mouth daily at bedtime. LORazepam (ATIVAN) 0.5 mg Take 1 at bedtime as needed omeprazole (PRILOSEC) 40 mg capsule Take 1 capsule by mouth twice daily before meals (0600/1600). hydroCHLOROthiazide (HYDRODIURIL, ESIDRIX) 50 mg tablet Take 1 tablet by mouth once daily. traZODone (DESYREL) 100 mg tablet Take 1 tablet by mouth daily at bedtime. As directed buPROPion XL (WELLBUTRIN XL) 300 mg 24 hr tablet Take 1 tablet by mouth once daily. levothyroxine (SYNTHROID) 75 mcg tablet Take 1 tablet by mouth daily before breakfast. Except 1/2 tab Thursday Cholecalciferol, Vitamin D3, 50 mcg (2,000 unit) cap Consider 4000 to 5000 IU daily dicyclomine (BENTYL) 10 mg capsule Take 1 capsule by mouth before meals and at bedtime. As needed peg 3350-Electrolytes (GOLYTELY) 236-22.74-6.74 -5.86 gram suspension Take 4,000 mL by mouth one time only for 1 dose. Refer to printed prep instructions from your provider. ondansetron orally disintegrating (ZOFRAN ODT) 4 mg disintegrating tablet Take 1 tablet by mouth every 6 hours as needed for nausea/vomiting. (Patient not taking: No sig reported) vit B complex no.12/niacin,B3, (VITAMIN B COMPLEX NO.12-NIACIN ORAL) Take 1 tablet by mouth once daily. (Patient not taking: No sig reported) rosuvastatin (CRESTOR) 5 mg tablet Take 1 tablet by mouth daily at bedtime. (Patient not taking: Reported on 11/07/2022) aspirin, enteric coated (ADULT LOW DOSE ASPIRIN) 81 mg EC tablet Take 1 tablet by mouth once daily. (Patient not taking: Reported on 11/08/2022) magnesium oxide (MAG-OX) 400 mg (241.3 mg magnesium) tablet Take 1 tablet by mouth twice daily for 7 days. CALCIUM CARBONATE/VITAMIN D3 (VITAMIN D-3 ORAL) Take by mouth. (Patient not taking: Reported on 11/07/2022) ALLERGIES: Axid [Nizatidine], Cymbalta [Duloxetine], Lipitor [Atorvastatin], Lisinopril, Losartan, Meridia [Sibutramine], and Sulfabenzamide PERSONAL HISTORY: Social History Tobacco Use Smoking status: Former Types: Cigarettes Start date: 05/15/1986 Smokeless tobacco: Never Vaping Use Vaping Use: Never used Substance Use Topics Alcohol use: Yes Alcohol/week: 7.5 standard drinks Types: 3 Glasses of Wine (5oz) per week Drug use: No FAMILY HISTORY Problem Relation Age of Onset Diabetes Father also CAD/PA Coronary Artery Disease Mother CABG at age 80 Cancer Other aunt lung cancer The review of systems data was entered by the nurse and reviewed by id Nursing Notes: More Richards LPN 11/08/2022 8:20 AM Signed REVIEW OF SYSTEMS: General: The patient denies fatigue, denies weight loss, denies weight gain, denies feeling hot, and denies feelings of cold. Eyes: The patient denies glaucoma, notes eye injury/surgery, does not wear glasses or contacts. Ear/Nose/Throat: The patient notes allergies, denies hayfever, denies ear infections, and denies bloody noses. Cardiovascular: The patient denies chest pain, denies heart disease, denies high blood pressure,denies cardiac stent, denies prior heart attack, denies irregular heart beat, denies high cholesterol, denies poor circulation, denies heart failure, other cardiac issues, denies claudication, denies cold feet, denies peripheral arterial stent. Respiratory: The patient denies tuberculosis, denies pneumonia, denies frequent cough, denies pulmonary embolism, denies shortness of breath, and denies coughing up blood. Gastrointestinal: The patient denies difficulty swallowing, notes acid reflux, denies ulcers, denies vomiting, denies jaundice/hepatitis, denies gallbladder problems, denies black or tarry stools, denies hemorrhoids, denies bleeding from rectum, denies diverticulitis, notes constipation, denies diarrhea, denies loss of stool control, and denies hernias. Kidney/Bladder: The patient denies kidney stones, denies urine infections, and denies bloody urine. Skin: The patient denies a history of skin cancer, denies bleeding/changing moles, and denies a history of skin rash. Neurologic: The patient denies a history of epilepsy/convulsions, denies headaches, denies head/spinal injuries, and denies stroke/TIA. Psychiatric: The patient denies psychiatric medications, denies depression, and denies voices, denies substance abuse. Endocrine: The patient notes thyroid disorders, denies diabetes, and denies hormonal problems. Hematologic: The patient denies a history of bruising, denies bleeding, and denies anemia, denies blood clots. Infections: The patient denies a history of measles and mumps, denies rheumatic fever, and denies sexually transmitted diseases. Musculoskeletal: The patient denies back pain/injury, denies back problems, notes sciatica, denies knee/foot trouble, denies arthritis, or denies gout. When was patient's last Mammogram screening? 2022 Last Colonoscopy: 2013 More Richards LPN PHYSICAL EXAMINATION: General: The patient is 71 year old female, well nourished, well hydrated in no acute distress. The patient is oriented to time, place, and person. VITALS: Blood pressure 108/68, pulse 94, temperature 36.5 C (97.7 F), height 157.5 cm (5' 2 ), weight 72.6 kg (160 lb), SpO2 98 %. Body mass index is 29.26 kg/m . Head: Normal cephalic, atraumatic Eyes: pupils are equally round, sclera are clear/anicteric Neck is supple with no tracheal deviation Respiratory: Normal respiratory excursion and pattern. Abdominal exam: benign Extremities: no clubbing, cyanosis or edema. Neuro non focal Psych: normal mood Assessment IMPRESSION: constipation PLAN: I have discussed the above with the patient. I have offered colonoscopy , possible biopsies I have explained the procedure to the patient. I have counseled the patient as to the risks of the procedure, including but not limited to: infection, bleeding, injury to any intrabdominal organs such as liver/spleen, perforation of the GI tract, inability to complete the procedure, complications of anesthesia, etc. - the patient understands. The patient wishes to proceed. I have answered all questions to the patient s satisfaction and the patient has no further questions. My clinic staff has educated the patient as to the colon cleansing regimen and I have prescribed Golytely for the colon cleansing solution. The patient will be scheduled for the procedure at [facility]. Diagnoses: (Z12.11) Screening for colon cancer (primary encounter diagnosis) (K59.00) Constipation, unspecified constipation type I have confirmed and edited as necessary, the PFSH and ROS obtained by others. Consultation requested by Coco Ocampo for an opinion regarding patient's constipation. My final recommendations will be communicated back to the requesting physician by way of shared Medical record or letter to requesting physician via US mail. Return to Clinic: The patient will be scheduled for procedure at [facility]. Medical Decision Making: Problems: Low: Stable chronic illness Risk: Low: Low risk from testing/treatment Medical Decision Making Level: 3 - Low Sarah Ryan MD documented in this encounter [facility] 11-08-2022 Instructions Sarah Ryan MD - 11/08/2022 8:38 AM EDT Images from the original note were not included. Bowel Preparation Instructions for: Golytely, Nulytely, Trilyte or Colyte (polyethylene glycol 3350 and electrolytes) IF YOU DO NOT FOLLOW THESE DIRECTIONS, YOUR COLONOSCOPY WILL BE CANCELLED. Delgado Instructions: Your bowel must be empty so that your doctor can clearly view your colon. Follow all of the instructions in this handout EXACTLY as they are written. Do NOT eat any solid food the ENTIRE day before your colonoscopy. Drink only clear liquids. Buy your bowel preparation at least 5 days before your colonoscopy. TRANSPORTATION on the Day of Your Exam A responsible person MUST be present with you at Check In prior to your colonoscopy and REMAIN in the endoscopy area until you are discharged. You are NOT ALLOWED to drive, take a taxi or bus, or leave the Endoscopy Center ALONE. If you do not have a responsible cab driver (family member or friend) with you to take you home, your exam cannot be done with sedation and will be cancelled. Please bring a list of all of your current medications, including any Over-the Counter medications with you. Medications If you take insulin, diabetic medications or blood thinners such as Coumadin (warfarin), Plavix (clopidogrel), Ticlid (ticlopidine hydrochloride), Agrylin (anagrelide), Xarelto (Rivaroxaban), Pradaxa (Dabigatran), Eliquis (Apixaban), and Effient (Prasugrel). You MUST call the doctors who orders those medicines for instructions on altering the dosage before your colonoscopy. All other medications should be taken the day of the exam with a sip of water including ASPIRIN. Five (5) Days Before Your Colonoscopy Do NOT take medicines that stop diarrhea - such as Imodium, Kaopectate, or Pepto Bismol. Do NOT take fiber supplements - such as Metamucil, Citrucel, or Perdiem. Do NOT take products that contain iron - such as multi-vitamins (the label lists what is in the products). Do NOT take Vitamin E. Buy the prescription bowel preparation solution at your local pharmacy or drugstore pharmacy. 1 04/2019 Bowel Preparation Instructions for: Golytely, Nulytely, Trilyte or Colyte (polyethylene glycol 3350 and electrolytes) Three (3) Days Before Your Colonoscopy Do NOT eat high-fiber foods - such as popcorn, beans, seeds (flax, sunflower, quinoa), multigrain bread, nuts, salad/vegetables, or fresh and dried fruit. One (1) Day Before Your Colonoscopy Only drink clear liquids the ENTIRE DAY before your colonoscopy. Do NOT eat any solid foods. Drink at least 8 ounces of clear liquids every hour after waking up. The clear liquids you can drink include: Clear Liquid (NO RED LIQUIDS) DO NOT DRINK Gatorade, Pedialyte or Powerade Clear broth or bouillon Coffee or tea (no milk or non-dairy creamer) Carbonated and non-carbonated soft drinks Reji-Aid or other fruit flavored drinks Strained fruit juices (no pulp) Jell-O, popsicles, hard candy Water Alcohol Milk or non-dairy creamers Noodles or vegetables in soup Juice with pulp Liquid you cannot see through Do not use tobacco/vaping products The bowel preparation solution will be consumed in two parts. Mix the solution the evening before your colonoscopy and refrigerate before drinking. You may add the flavor pack that came with the bowel preparation. Do NOT add ice, sugar or any other flavorings to the solution. Part 1 At 6:00 PM - Evening before your colonoscopy Drink an 8-oz glass of bowel preparation every 10 minutes for a total of 8 glasses. You may continue to drink clear liquids until midnight. Part 2 On the day of your colonoscopy you may drink clear liquids up to (three) 3 hours before your procedure. 4 1/2 hours before your colonoscopy Drink an 8-oz glass of bowel preparation every 10 minutes for a total of 8 glasses. Fifteen (15) minutes later, drink an 8-oz glass of clear liquids every 15 minutes for a total of 2 glasses. You may continue to drink clear liquids up to (three) 3 hours before your exam. 2 04/2019 documented in this encounter [facility] 11-08-2022 Nurse Note REVIEW OF SYSTEMS: General: The patient denies fatigue, denies weight loss, denies weight gain, denies feeling hot, and denies feelings of cold. Eyes: The patient denies glaucoma, notes eye injury/surgery, does not wear glasses or contacts. Ear/Nose/Throat: The patient notes allergies, denies hayfever, denies ear infections, and denies bloody noses. Cardiovascular: The patient denies chest pain, denies heart disease, denies high blood pressure,denies cardiac stent, denies prior heart attack, denies irregular heart beat, denies high cholesterol, denies poor circulation, denies heart failure, other cardiac issues, denies claudication, denies cold feet, denies peripheral arterial stent. Respiratory: The patient denies tuberculosis, denies pneumonia, denies frequent cough, denies pulmonary embolism, denies shortness of breath, and denies coughing up blood. Gastrointestinal: The patient denies difficulty swallowing, notes acid reflux, denies ulcers, denies vomiting, denies jaundice/hepatitis, denies gallbladder problems, denies black or tarry stools, denies hemorrhoids, denies bleeding from rectum, denies diverticulitis, notes constipation, denies diarrhea, denies loss of stool control, and denies hernias. Kidney/Bladder: The patient denies kidney stones, denies urine infections, and denies bloody urine. Skin: The patient denies a history of skin cancer, denies bleeding/changing moles, and denies a history of skin rash. Neurologic: The patient denies a history of epilepsy/convulsions, denies headaches, denies head/spinal injuries, and denies stroke/TIA. Psychiatric: The patient denies psychiatric medications, denies depression, and denies voices, denies substance abuse. Endocrine: The patient notes thyroid disorders, denies diabetes, and denies hormonal problems. Hematologic: The patient denies a history of bruising, denies bleeding, and denies anemia, denies blood clots. Infections: The patient denies a history of measles and mumps, denies rheumatic fever, and denies sexually transmitted diseases. Musculoskeletal: The patient denies back pain/injury, denies back problems, notes sciatica, denies knee/foot trouble, denies arthritis, or denies gout. When was patient's last Mammogram screening? 2022 Last Colonoscopy: 2013 More Richards LPN documented in this encounter [facility] 11-07-2022 Instructions Coco Ocampo APRN.RICO - 11/07/2022 12:59 PM EDT Keep up with the water and activity. See general surgery to discuss colonoscopy. Can increase miralax to 2 doses a day, when getting a good consistency can decrease to 1.5 doses. Can continue the colace as needed. Can try a probiotic and/or fiber supplement too. Can try Smooth move tea. If still having issues can also try senna. documented in this encounter [facility] 11-07-2022 History of Present illness Narrative SUBJECTIVE Amina Tobar is a 71 year old female here today acutely. Chief Complaint Patient presents with: Diarrhea: cramping type pain that is making her nauseated Taking Miralax 1 capful every night and colace 2 capsules as needed Has treated pain with bentyl States she does drink quite bit of water. HPI Amina Tobar is a 71 year old female established patient of Fiorella Hall MD who presents today acutely for issues with constipation. Currently she has been taking miralax 1 capful nightly and colace 2 capsules as needed. Used to be pretty regular but last 4-6 months started to notice more constipation. Last 4-6 weeks worse. Had to self dis-impact this am. Drinking water. Not taking any extra fiber, tries to eat lots of fruit and vegetables. No blood in stool. Has rectal pressure but trouble passing stool. Prior colonoscopy 2013, normal. Rides bike and walks regularly. Her medications were reviewed today and her list is now up to date. Medications Current Outpatient Medications Medication Sig melatonin 5 mg tablet Take 5 mg by mouth daily at bedtime. LORazepam (ATIVAN) 0.5 mg Take 1 at bedtime as needed omeprazole (PRILOSEC) 40 mg capsule Take 1 capsule by mouth twice daily before meals (0600/1600). hydroCHLOROthiazide (HYDRODIURIL, ESIDRIX) 50 mg tablet Take 1 tablet by mouth once daily. traZODone (DESYREL) 100 mg tablet Take 1 tablet by mouth daily at bedtime. As directed buPROPion XL (WELLBUTRIN XL) 300 mg 24 hr tablet Take 1 tablet by mouth once daily. levothyroxine (SYNTHROID) 75 mcg tablet Take 1 tablet by mouth daily before breakfast. Except 05/16 tab Cholecalciferol, Vitamin D3, 50 mcg (2,000 unit) cap Consider 4000 to 5000 IU daily dicyclomine (BENTYL) 10 mg capsule Take 1 capsule by mouth before meals and at bedtime. As needed polyethylene glycol 3350 (MIRALAX) 17 gram/dose powder Take 17 g by mouth once daily. Dissolve dose in 4 - 8 ounces of liquid and take as directed. ondansetron orally disintegrating (ZOFRAN ODT) 4 mg disintegrating tablet Take 1 tablet by mouth every 6 hours as needed for nausea/vomiting. (Patient not taking: No sig reported) vit B complex no.12/niacin,B3, (VITAMIN B COMPLEX NO.12-NIACIN ORAL) Take 1 tablet by mouth once daily. (Patient not taking: No sig reported) rosuvastatin (CRESTOR) 5 mg tablet Take 1 tablet by mouth daily at bedtime. (Patient not taking: Reported on 11/07/2022) aspirin, enteric coated (ADULT LOW DOSE ASPIRIN) 81 mg EC tablet Take 1 tablet by mouth once daily. magnesium oxide (MAG-OX) 400 mg (241.3 mg magnesium) tablet Take 1 tablet by mouth twice daily for 7 days. CALCIUM CARBONATE/VITAMIN D3 (VITAMIN D-3 ORAL) Take by mouth. (Patient not taking: Reported on 11/07/2022) No current facility-administered medications for this visit. ALLERGIES Allergen Reactions Axid [Nizatidine] Hives Cymbalta [Duloxetin* Insomnia Lipitor [Atorvastat* Other: See Comments Insomnia, headache and nausea Lisinopril Cough cough with vomiting Losartan Cough Meridia [Sibutramin* Rash Sulfabenzamide Intolerance red mouth; sulfa med caused adverse effect ACTIVE PROBLEM LIST Essential Hypertension - 06/13/2019 Anxiety, Generalized - 06/13/2019 Abdominal Pain, Rlq - 06/13/2019 Psychophysiological Insomnia - 06/13/2019 Other and Unspecified Noninfectious Gastroenteritis and Colitis(558.9) - 04/09/2014 Parapelvic Renal Cyst - 01/14/2014 Comment: [facility] 12/29/13 Lipoma of Unspecified Site - 02/09/2010 Trigger Finger, left ring finger - 08/19/2009 Vitamin D Deficiency - 04/08/2008 Spinal Stenosis, Lumbar Region, Without Neurogenic Claudication - 10/04/2007 Hyperlipemia, Mixed - 03/28/2006 Sciatica Generalized Osteoarthrosis, Unspecified Site Comment: lumbar spine Diffuse Cystic Mastopathy Irritable Bowel Syndrome Moderate Episode of Recurrent Major Depressive Disorder (Hcc) Comment: with anxiety Allergic Rhinitis, Cause Unspecified Esophageal Reflux Hypothyroidism Disorder of Bone and Cartilage, Unspecified - 05/15/2003 Social History Tobacco Use Smoking status: Former Types: Cigarettes Start date: 05/15/1986 Smokeless tobacco: Never Substance Use Topics Alcohol use: Yes Alcohol/week: 7.5 standard drinks Types: 3 Glasses of Wine (5oz) per week Drug use: No Review of Systems Respiratory: Negative. Cardiovascular: Negative. Gastrointestinal: Positive for constipation and nausea. Negative for abdominal distention, anal bleeding, blood in stool, diarrhea, rectal pain and vomiting. OBJECTIVE BP 134/82 Pulse 82 Wt 161 lb (73.0kg) SpO2 98% Physical Exam Vitals and nursing note reviewed. Constitutional: General: She is awake. She is not in acute distress. Appearance: Normal appearance. She is well-developed and well-groomed. She is not ill-appearing, toxic-appearing or diaphoretic. HENT: Head: Normocephalic. Right Ear: External ear normal. Left Ear: External ear normal. Nose: Nose normal. Eyes: General: Vision grossly intact. Conjunctiva/sclera: Conjunctivae normal. Pupils: Pupils are equal, round, and reactive to light. Neck: Vascular: No JVD. Trachea: Trachea normal. Cardiovascular: Rate and Rhythm: Normal rate and regular rhythm. Pulses: Normal pulses. Heart sounds: Normal heart sounds. No murmur heard. Pulmonary: Effort: Pulmonary effort is normal. No accessory muscle usage, prolonged expiration or respiratory distress. Breath sounds: Normal breath sounds. Abdominal: General: Bowel sounds are normal. Palpations: Abdomen is soft. There is no mass. Tenderness: There is no guarding or rebound. Musculoskeletal: Cervical back: Neck supple. Skin: General: Skin is warm and dry. Capillary Refill: Capillary refill takes less than 2 seconds. Neurological: General: No focal deficit present. Mental Status: She is alert and oriented to person, place, and time. Mental status is at baseline. Psychiatric: Attention and Perception: Attention and perception normal. Mood and Affect: Mood and affect normal. Speech: Speech normal. Behavior: Behavior normal. Behavior is cooperative. Thought Content: Thought content normal. Cognition and Memory: Cognition and memory normal. Judgment: Judgment normal. ASSESSMENT/PLAN: 1. Constipation, unspecified constipation type - ICD9: 564.00, ICD10: K59.00 Discussed she can increase miralax dose to help soften stools. Colace PRN ok to continue. Consider adding fiber and/or probiotics. Can also try smooth move tea. Senna if constipation persistent. Will send to general surgery to discuss updating her colonoscopy since she is almost due for this any way. Discussed other diet modifications and to keep up drinking water and being active. - CONSULT TO GENERAL SURGERY Portions of this note have been entered by ancillary staff. I have reviewed and when necessary edited, so that they are an adequate record of my encounter with this patient Please note that parts of this document were created using voice recognition software and therefore may contain grammatical errors. Patient verbalizes understanding of instructions from today's visit and in agreement with treatment plan. Questions answered. Agrees to call the office if questions, concerns of issues with acute symptoms not improving or if they worsen. Return if symptoms worsen or fail to improve. ANTOINE Douglas documented in this encounter [facility] 08-19-2022 History of Present illness Narrative Images from the original note were not included. Heart [facility] V[facility] Thor[facility] [place] DEPARTMENT OF VASCULAR SURGERY OUTPATIENT VISIT DATE August 19, 2022 OUTPATIENT VISIT TYPE ESTABLISHED SERVICE DATE: 08/19/2022 SERVICE TIME: 12:10 PM PRIMARY CARE PHYSICIAN: Fiorella Hall MD HISTORY OF PRESENT ILLNESS: Ms. Tobar is a 71 year old female who presents today for a vascular surgery follow-up visit for symptomatic varicose veins. PAST MEDICAL HISTORY Diagnosis Date Allergic rhinitis, cause unspecified Arthritis Depressive disorder, not elsewhere classified with anxiety Diffuse cystic mastopathy Disorder of bone and cartilage, unspecified 05/2003 Esophageal reflux Generalized osteoarthrosis, unspecified site lumbar spine Hypertension Internal hemorrhoids without mention of complication Irritable bowel syndrome Obesity, unspecified Other bursitis disorders right greater trochanter Sciatica Thyrotoxicosis without mention of goiter or other cause, without mention of thyrotoxic crisis or storm 1998 Hyperthyroidism/had radioactive iodine Unspecified hypothyroidism PAST SURGICAL HISTORY Procedure Laterality Date COLONOSCOPY FLX DX W/COLLJ SPEC WHEN PFRMD 07/02/07 COLONOSCOPY FLX DX W/COLLJ SPEC WHEN PFRMD 04/09/14 Colonoscopy ESOPHAGOGASTRODUODENOSCOPY TRANSORAL DIAGNOSTIC 12/1991 EGD ESOPHAGOGASTRODUODENOSCOPY TRANSORAL DIAGNOSTIC 02/27/2020 EGD EYE SURGERY HX Bilateral cataract extraction and lens implants PAST SURGICAL HISTORY OF cataract surgery--right July 2015,left August 2015 SIGMOIDOSCOPY FLX DX W/COLLJ SPEC BR/WA IF PFRMD Sigmoidoscopy, flexible SKIN BIOPSY HX TONSILLECTOMY HX TONSILLECTOMY PRIMARY/SECONDARY <AGE 11 Tonsillectomy/adenoidectomy SOCIAL HISTORY Social History Tobacco Use Smoking status: Former Types: Cigarettes Start date: 05/15/1986 Smokeless tobacco: Never Substance Use Topics Alcohol use: Yes Alcohol/week: 7.5 standard drinks Types: 3 Glasses of Wine (5oz) per week Drug use: No MEDICATIONS: LORazepam (ATIVAN) 0.5 mg Take 1 at bedtime as needed omeprazole (PRILOSEC) 40 mg capsule Take 1 capsule by mouth twice daily before meals (0600/1600). hydroCHLOROthiazide (HYDRODIURIL, ESIDRIX) 50 mg tablet Take 1 tablet by mouth once daily. traZODone (DESYREL) 100 mg tablet Take 1 tablet by mouth daily at bedtime. As directed buPROPion XL (WELLBUTRIN XL) 300 mg 24 hr tablet Take 1 tablet by mouth once daily. levothyroxine (SYNTHROID) 75 mcg tablet Take 1 tablet by mouth daily before breakfast. Except 1/2 tab rosuvastatin (CRESTOR) 5 mg tablet Take 1 tablet by mouth daily at bedtime. Cholecalciferol, Vitamin D3, 50 mcg (2,000 unit) cap Consider 4000 to 5000 IU daily dicyclomine (BENTYL) 10 mg capsule Take 1 capsule by mouth before meals and at bedtime. As needed CALCIUM CARBONATE/VITAMIN D3 (VITAMIN D-3 ORAL) Take by mouth. ondansetron orally disintegrating (ZOFRAN ODT) 4 mg disintegrating tablet Take 1 tablet by mouth every 6 hours as needed for nausea/vomiting. (Patient not taking: No sig reported) vit B complex no.12/niacin,B3, (VITAMIN B COMPLEX NO.12-NIACIN ORAL) Take 1 tablet by mouth once daily. (Patient not taking: No sig reported) aspirin, enteric coated (ADULT LOW DOSE ASPIRIN) 81 mg EC tablet Take 1 tablet by mouth once daily. magnesium oxide (MAG-OX) 400 mg (241.3 mg magnesium) tablet Take 1 tablet by mouth twice daily for 7 days. ALLERGIES: ALLERGIES Allergen Reactions Axid [Nizatidine] Hives Cymbalta [Duloxetin* Insomnia Lipitor [Atorvastat* Other: See Comments Insomnia, headache and nausea Lisinopril Cough cough with vomiting Losartan Cough Meridia [Sibutramin* Rash Sulfabenzamide Intolerance red mouth; sulfa med caused adverse effect PHYSICAL EXAM: BP 120/82 (BP Site: Left Arm, BP Position: Sitting, BP Cuff Size: Regular Adult) Pulse 69 SpO2 100% The patient was placed in the supine position and the bilateral lower extremities were cleansed with isopropyl alcohol. Syringes containing 2 mL of 0.5% Asclera were prepared and veins in the anterior, medial, posterior, and lateral legs were injected using an angled 30-gauge needle. A total of 2 mL of solution injection. Cotton balls were used to apply pressure secured down with paper tape. Once all injections were completed the legs were cleansed with isopropyl alcohol and the patient put on compression stockings. There were no complications and the patient tolerated the procedure well. Diagnostic tests reviewed for today's visit: IMPRESSION: Ms. Tobar is a 71 year old female symptomatic varicose veins . PLAN and RECOMMENDATIONS: Reviewed home going instructions SIGNATURE: Annemarie Westbrook DO PATIENT NAME: Amina Tobar DATE: August 19, 2022 TIME: 12:10 PM documented in this encounter [facility] 07-27-2022 Note HNO ID: [id number] Author: RT Rafi(R) Service: Radiology Author Type: Technologist Type: Progress Notes Filed: 07/27/2022 3:54 PM Note Text: Summary: CT CALCIUM SCORE Radiology Service Progress Note PATIENT NAME: Amina Tobar DATE OF SERVICE: July 27, 2022 TIME: 3:54 PM PATIENT IDENTITY VERIFICATION COMPLETED USING TWO (2) IDENTIFIERS: Name and Date of confirmed by patient verbally. FALL SCREENING: Has the patient had 2 falls in the last year or 1 fall with injury or currently using an Ambulatory Assistive Device (Walker, Cane, Wheelchair, Crutches, etc.)? No PATIENT GENDER DATA: Female. status: : No status: NO. PATIENT RELEVANT IMPLANT DATA REVIEWED: Not Applicable RADIOLOGY DEPARTMENT: CT; Exam(s) Completed: Cardiac CALCIUM SCORE PERIPHERAL IV DATA: Not applicable SIGNED BY: Guy Garcia RT(R) July 27, 2022 3:54 PM [facility] 07-20-2022 Instructions Fiorella Hall MD - 07/20/2022 9:06 AM EST Increase Vitamin D to 5000 units daily since level dropped with current dosing. Try taking Crestor 1 pill 2 to 3 times a week (whole pill or half pill). documented in this encounter [facility] 07-20-2022 History of Present illness Narrative This note was created using NoteWriter. Subjective Amina Tobar is a 71 year old female. Patient presents with: F/U 6 months SUBJECTIVE: Amina Tobar is a 71 year old year old lady here today for 6 month follow up appointment for review of medical conditions. Still really active. Working at [employer] and doing exercise classes. Nyquil caused her trouble sleeping.Sensitive to decongestant and antihistamine gives opposite effect. Has tendency to cough and has allergies. Arms ache at night if takes Crestor. Getting cardiac calcium score at [facility] (only $45 self pay cost). Has tendinitis left wrist. DeQuervain's tenosynovitis; has spur on the radial wrist. Saw Dr. Austin. BP at home 128 over 70s. Also good at ortho office. PAST MEDICAL HISTORY Diagnosis Date Allergic rhinitis, cause unspecified Arthritis Depressive disorder, not elsewhere classified with anxiety Diffuse cystic mastopathy Disorder of bone and cartilage, unspecified 05/2003 Esophageal reflux Generalized osteoarthrosis, unspecified site lumbar spine Hypertension Internal hemorrhoids without mention of complication Irritable bowel syndrome Obesity, unspecified Other bursitis disorders right greater trochanter Sciatica Thyrotoxicosis without mention of goiter or other cause, without mention of thyrotoxic crisis or storm 1998 Hyperthyroidism/had radioactive iodine Unspecified hypothyroidism Current Outpatient Medications Medication Sig ondansetron orally disintegrating (ZOFRAN ODT) 4 mg disintegrating tablet Take 1 tablet by mouth every 6 hours as needed for nausea/vomiting. benzonatate (TESSALON PERLES) 100 mg capsule Take 1 capsule by mouth three times daily as needed for cough. (Patient not taking: Reported on 03/29/2022) levothyroxine (SYNTHROID) 75 mcg tablet Take 1 tablet by mouth daily before breakfast. Except 05/16 tab vit B complex no.12/niacin,B3, (VITAMIN B COMPLEX NO.12-NIACIN ORAL) Take 1 tablet by mouth once daily. (Patient not taking: Reported on 03/29/2022) omeprazole (PRILOSEC) 40 mg capsule Take 1 capsule by mouth twice daily before meals (0600/1600). hydroCHLOROthiazide (HYDRODIURIL, ESIDRIX) 50 mg tablet Take 1 tablet by mouth once daily. LORazepam (ATIVAN) 0.5 mg Take 1 at bedtime as needed buPROPion XL (WELLBUTRIN XL) 150 mg 24 hr tablet Take 1 tablet by mouth once daily. Add to Wellbutrin XL 300 mg dose traZODone (DESYREL) 100 mg tablet Take 1 tablet by mouth daily at bedtime. As directed buPROPion XL (WELLBUTRIN XL) 300 mg 24 hr tablet Take 1 tablet by mouth once daily. With 150mg dose rosuvastatin (CRESTOR) 5 mg tablet Take 1 tablet by mouth daily at bedtime. (Patient taking differently: Take 5 mg by mouth every other day.) aspirin, enteric coated (ADULT LOW DOSE ASPIRIN) 81 mg EC tablet Take 1 tablet by mouth once daily. Cholecalciferol, Vitamin D3, 50 mcg (2,000 unit) cap Consider 4000 to 5000 IU daily dicyclomine (BENTYL) 10 mg capsule Take 1 capsule by mouth before meals and at bedtime. As needed (Patient not taking: Reported on 03/29/2022) magnesium oxide (MAG-OX) 400 mg (241.3 mg magnesium) tablet Take 1 tablet by mouth twice daily for 7 days. CALCIUM CARBONATE/VITAMIN D3 (VITAMIN D-3 ORAL) Take by mouth. FA/MV,CA,IRON,MIN/LYCOPENE/LUT (MULTIVITAL ORAL) Take by mouth. (Patient not taking: No sig reported) No current facility-administered medications for this visit. Review of Systems Objective BP 142/82 Pulse 89 Temp 36.4 C (97.6 F) Resp 18 Wt 71.2 kg (157 lb) SpO2 98% BMI 30.16 kg/m Last 5 Encounter Wt Readings: Date: Wt: 07/20/2022 71.2 kg (157 lb) 03/29/2022 70.8 kg (156 lb) 01/14/2022 72.1 kg (159 lb) 08/24/2021 68.9 kg (152 lb) 08/13/2021 68.9 kg (152 lb) No waist measurement recorded Estimated body mass index is 30.16 kg/m as calculated from the following: Height as of 03/29/22: 153.7 cm (5' 0.5 ). Weight as of this encounter: 71.2 kg (157 lb). Last 5 Encounter BP Readings: Date: BP: 07/20/2022 142/82 03/29/2022 126/91 01/14/2022 130/70 08/24/2021 128/76 08/13/2021 118/78 Physical Exam Constitutional: Appearance: Normal appearance. HENT: Head: Normocephalic. Eyes: Conjunctiva/sclera: Conjunctivae normal. Cardiovascular: Rate and Rhythm: Normal rate and regular rhythm. Heart sounds: Normal heart sounds. Pulmonary: Effort: Pulmonary effort is normal. Breath sounds: Normal breath sounds. Skin: General: Skin is warm and dry. Neurological: General: No focal deficit present. Mental Status: She is alert and oriented to person, place, and time. Psychiatric: Mood and Affect: Mood normal. Behavior: Behavior normal. Thought Content: Thought content normal. Judgment: Judgment normal. Component Latest Ref Rng & Units 07/07/2021 12/06/2021 07/06/2022 WBC 3.70 - 11.00 k/uL 5.34 RBC 3.90 - 5.20 m/uL 4.55 Hemoglobin 11.5 - 15.5 g/dL 14.4 Hematocrit 36.0 - 46.0 % 41.4 MCV 80.0 - 100.0 fL 91.0 MCH 26.0 - 34.0 pG 31.6 MCHC 30.5 - 36.0 g/dL 34.8 RDW-CV 11.5 - 15.0 % 12.6 Platelet Count 150 - 400 k/uL 256 MPV 9.0 - 12.7 fL 9.4 Neut% % 41.8 Abs Neut (ANC) 1.45 - 7.50 k/uL 2.22 Lymph% % 45.5 Abs Lymph 1.00 - 4.00 k/uL 2.43 [place]% % 9.4 Abs [place] <0.87 k/uL 0.50 Eosin% % 2.4 Abs Eosin <0.46 k/uL 0.13 Baso% % 0.9 Abs Baso <0.11 k/uL 0.05 Nucleated Reds 0 /100 WBC 0.0 Absolute nRBC <0.01 k/uL <0.01 Diff Type Auto Diff Protein, Total 6.3 - 8.0 g/dL 6.3 6.5 Albumin 3.9 - 4.9 g/dL 4.0 4.0 Calcium 8.5 - 10.2 mg/dL 9.1 8.9 Bilirubin, Total 0.2 - 1.3 mg/dL 0.3 0.3 Alkaline Phosphatase 34 - 123 U/L 87 78 AST 13 - 35 U/L 18 20 Glucose 74 - 99 mg/dL 110 (H) 127 (H) BUN 7 - 21 mg/dL 11 15 Creatinine 0.58 - 0.96 mg/dL 0.80 0.85 Sodium 136 - 144 mmol/L 137 136 Potassium 3.7 - 5.1 mmol/L 3.9 3.8 Chloride 97 - 105 mmol/L 102 100 CO2 22 - 30 mmol/L 25 23 Anion Gap 9 - 18 mmol/L 10 13 ALT 7 - 38 U/L 13 13 eGFR- >60 eGFR-All Other Races . >60 eGFR >=60 mL/min/1.73m 73 Cholesterol, Total <200 mg/dL 186 228 (H) Triglyceride <150 mg/dL 90 71 HDL Cholesterol >39 mg/dL 78 83 LDL Cholesterol <100 mg/dL 90 131 (H) Non HDL Cholesterol <130 mg/dL 108 145 (H) Fasting Time hrs 12 10 VLDL Cholesterol <30 mg/dL 18 14 TC:HDL Ratio <5.10 2.38 2.75 LDL:HDL Ratio <2.54 1.15 1.58 Hemoglobin A1C 4.3 - 5.6 % 5.8 (H) Estimated Average Glucose mg/dL 120 Magnesium 1.7 - 2.3 mg/dL 1.8 TSH 0.270 - 4.200 mIU/L 0.670 1.120 1.660 Free T4 0.9 - 1.7 ng/dL 1.4 1.3 1.4 Vitamin D 25 Hydroxy 31.0 - 80.0 ng/mL 33.0 29.6 (L) Free T3 2.3 - 4.1 pg/mL 3.0 2.9 Hemoglobin A1C (%) Date Value 07/07/2021 5.8 07/02/2020 5.9 11/25/2019 5.8 05/01/2019 5.9 11/05/2018 6.0 The 10-year ASCVD risk score (Babak ALONZO, et al., 2019) is: 18.5% Values used to calculate the score: Age: 71 years Sex: Female Is Non- : No Diabetic: No Tobacco smoker: No Systolic Blood Pressure: 142 mmHg Is BP treated: Yes HDL Cholesterol: 83 mg/dL Total Cholesterol: 228 mg/dL Assessment and Plan Encounter Diagnosis ICD-10-CM 1. Sleep disturbance G47.9 traZODone (DESYREL) 100 mg tablet 2. Anxiety, generalized F41.1 LORazepam (ATIVAN) 0.5 mg 3. Vitamin D deficiency E55.9 VITAMIN D 25 HYDROXY 4. Acquired hypothyroidism E03.9 5. IFG (impaired fasting glucose) R73.01 COMP METABOLIC PANEL HGB A1C 6. Hyperlipemia, mixed E78.2 LIPID PANEL BASIC 7. Encounter for long-term current use of medication Z79.899 COMP METABOLIC PANEL CBC 8. Recurrent major depressive disorder, in full remission (HCC) F33.42 buPROPion XL (WELLBUTRIN XL) 300 mg 24 hr tablet 9. Gastroesophageal reflux disease without esophagitis K21.9 omeprazole (PRILOSEC) 40 mg capsule 10. Essential hypertension I10 hydroCHLOROthiazide (HYDRODIURIL, ESIDRIX) 50 mg tablet Above issues addressed with patient. Patient involved in shared decision making for management of medical issues. History and medications reviewed. Epic updated as needed Refills and/or prescriptions taken care of and meds adjusted as indicated after reviewed history, exam and labs. Health Maintenance reviewed. Updated record and/or ordered tests as recorded. Encouraged on efforts at healthy diet and regular exercise and adequate sleep. Cut back on carbs. Doing well on current meds. Will try Crestor with pulse dosing. Increase Vitamin D dose. Discussed that is doing great with staying active. May need to cut back on some activities to conserve energy. Fiorella Hall MD documented in this encounter [facility] 07-05-2022 Miscellaneous Notes Pt called in asking if she had labs before her appointment. Let Pt know she had fasting labs ordered. documented in this encounter [facility] 03-29-2022 History of Present illness Narrative NAME: AMINA TOBAR [facility] NO: [id number] DATE OF SERVICE: 03/29/2022 Subjective: Amina is here to follow up on carotid artery disease. She denies any significant focal neurologic deficit. Overall, she is doing well. Denies any numbness, tingling or monocular vision loss. Objective: She has no focal neurologic deficit. No significant lower extremity edema, however, she does have some small, tender varicose veins in the right medial calf. She has had previous ultrasound-guided sclerotherapy. Reviewed her carotid duplex, which is unchanged from August. Her right ICA is 60-79%, her left is 20-39%. This has been relatively stable over the past year or so. Assessment/Plan: Asymptomatic carotid artery stenosis. Recommend that Ms. Tobar check a repeat duplex in a year, continue with antiplatelet therapy and a statin. She is going to see Cardiology to establish care, as she had symptoms when she had COVID recently. We discussed ultrasound-guided sclerotherapy to treat her symptomatic varicose veins, as she has had venous reflux testing in the past and she has no significant deep or superficial deep reflux. She is going to call the office to arrange and schedule in the new year. Annemarie Westbrook D.O. KB/[id number] Audio #: [id number] Date Dictated: 03/29/2022 08:13:28 Date Typed: 04/04/2022 11:09:45 Date Revised: documented in this encounter [facility] 03-04-2022 History of Present illness Narrative Telemedicine Evaluation for COVID-19 Infection Audio only was used for evaluation of this patient. Location of patient: [facility] Amina Tobar is a 71 year old female who presents with 4 days of symptoms that are stable. Positive at home / antigen test. Notes cough, fatigue, nausea and diarrhea. Symptoms include: Fever (?100.4F): No or Chills: Yes 99F Cough: Yes, occasional Shortness of breath: Yes with exertion only or Difficulty breathing: No Fatigue: Yes Muscle aches: Yes Headache: Yes New loss of smell or taste: Yes Sore throat: Yes Nasal congestion: Yes or Rhinorrhea: Yes Nausea: Yes or Vomiting: No Diarrhea: Yes, several times per OTC meds/remedies that patient has tried: ibuprofen and gatorade. High risk category assessment Age > 60 years old Exposures: Sick contacts? Yes Family or close contacts with confirmed/probable COVID-19 in last 14 days? Yes, friend was positive She reports that she has quit smoking. Her smoking use included cigarettes. She started smoking about 35 years ago. She has never used smokeless tobacco. OBJECTIVE VIDEO EXAM (if available) No home vitals Alert, oriented, answering questions in complete sentences without cough wheeze or shortness of breath noted on room air. ASSESSMENT/PLAN (U07.1) COVID-19 virus infection (primary encounter diagnosis) - Meets symptom-based criteria for testing and is high risk. - Discussed symptom monitoring and supportive care - Red flag symptoms requiring follow up discussed Creatinine Date Value Ref Range Status 07/07/2021 0.80 0.58 - 0.96 mg/dL Final 07/02/2020 0.87 0.58 - 0.96 mg/dL Final 11/25/2019 0.83 0.58 - 0.96 mg/dL Final 05/01/2019 0.98 (H) 0.58 - 0.96 mg/dL Final Nirmatrelvir/Ritonavir (Paxlovid) Eligibility and Patient Discussion [facility] Formulary Restriction Criteria: Adult outpatients 18 years and older with ALL of the following: [x] Patient has positive SARS-COV-2 viral test (PCR or antigen test) during current illness [x] Patient has symptoms for 5 days or less [x] Not requiring hospitalization at any time for management of COVID-19 [x] Not requiring supplemental oxygen or a change in baseline supplemental oxygen [x] Not utilized for pre-exposure or post-exposure prophylaxis for prevention of COVID-19 [x] Patient does not have severe renal impairment (eGFR < 30 mL/min) or severe hepatic impairment (Child-[place]ak Class C) [x] Meeting at least one of the criteria for high risk of progression to severe COVID-19: [x] Age over 65 years [] Cancer [] Chronic kidney disease [] Chronic liver disease [] Chronic lung diseases, including cystic fibrosis [] Dementia or other neurological conditions [] Diabetes (type 1 or type 2) [] Disabilities, including Down syndrome and neurodevelopmental disorders [] Heart conditions [] HIV infection [] Immunocompromised state [] Mental health conditions [] Medical related technological dependence (tracheostomy, gastrostomy, or positive pressure ventilation (not related to COVID) [] Overweight and obesity (BMI greater or equal to 25 for adults) [] Physical inactivity [] [] Sickle cell disease or thalassemia [] Smoking, current or former [] Solid organ or blood stem cell transplant [] Stroke or cerebrovascular disease [] Substance use disorders [] Tuberculosis [] People from racial and ethnic minority groups Criteria above are met: Yes Date of Positive Test:03/02/2022 Date of Symptom Onset: 02/26/2022 Patient received COVID vaccine: Yes Drug-Drug interactions reviewed: Yes. Drug interactions were identified and the following actions were taken holding trazodone and rosuvastatin. I have discussed the use of the investigational therapeutic, nirmatrelvir/ritonavir, for the treatment of mild to moderate COVID-19 and its use under Emergency Use Authorization with the patient. The patient was informed that nirmatrelvir/ritonavir is not an FDA approved drug and that it is authorized for use under this Emergency Use Authorization. The patient was also informed of the significant known benefits and potential risks of nirmatrelvir/ritonavir, and the extent to which such potential risks and benefits are unknown. The patient was informed that there is mandatory reporting of all medication errors and serious adverse events potentially related to nirmatrelvir/ritonavir treatment within 7 calendar days from the onset of the event and that events up to 28 days after completion of therapy need to be reported. The discussion included alternatives to receiving nirmatrelvir/ritonavir, including clinical trials, and potential the risks and benefits of those alternatives. The patient was provided electronically with the Fact Sheet for Patients, Parents and Caregivers . The patient was also instructed that in addition to the treatment with nirmatrelvir/ritonavir, he/she should continue to self-isolate and use infection control measures (e.g., wear mask, isolate, social distance, avoid sharing personal items, clean and disinfect high touch surfaces, and frequent handwashing) according to CDC guidelines. The patient stated understanding and gave verbal consent to proceeding with nirmatrelvir/ritonavir treatment. Jeancarlos Vasques APRN.CNS March 04, 2022 12:14 PM This patient encounter involved the screening or treatment of novel coronavirus infection (COVID-19). 20 min visit Jeancarlos Vasques, REPAIR [employer]MATURE WINDER.WATER MAINTENANCE SUPERVISOR documented in this encounter [facility] 03-04-2022 Miscellaneous Notes Addended by: BATOOL LIRA LPN on: 03/04/2022 12:56 PM Modules accepted: Orders, SmartSet documented in this encounter [facility] 03-04-2022 Instructions Jeancarlos Vasques APRN.WATER MAINTENANCE SUPERVISOR - 03/04/2022 12:19 PM EDT FACT SHEET FOR PATIENTS, PARENTS, AND CAREGIVERS EMERGENCY USE AUTHORIZATION (EUA) OF PAXLOVID FOR CORONAVIRUS DISEASE 2019 (COVID-19) You are being given this Fact Sheet because your healthcare provider believes it is necessary to provide you with PAXLOVID for the treatment of hqop-dq-ntjmmuqs coronavirus disease (COVID-19) caused by the SARS-CoV-2 virus. This Fact Sheet contains information to help you understand the risks and benefits of taking the PAXLOVID you have received or may receive. The U.S. Food and Drug Administration (FDA) has issued an Emergency Use Authorization (EUA) to make PAXLOVID available during the COVID-19 pandemic (for more details about an EUA please see What is an Emergency Use Authorization? at the end of this document). PAXLOVID is not an FDA-approved medicine in the [place]. Read this Fact Sheet for information about PAXLOVID. Talk to your healthcare provider about your options or if you have any questions. It is your choice to take PAXLOVID. What is COVID-19? COVID-19 is caused by a virus called a coronavirus. You can get COVID-19 through close contact with another person who has the virus. COVID-19 illnesses have ranged from very ggub-na-rrwafm, including illness resulting in . While information so far suggests that most COVID-19 illness is mild, serious illness can happen and may cause some of your other medical conditions to become worse. Older people and people of all ages with severe, long lasting (chronic) medical conditions like heart disease, lung disease, and diabetes, for example seem to be at higher risk of being hospitalized for COVID-19. What is PAXLOVID? PAXLOVID is an investigational medicine used to treat xgzr-ph-ceadmhlf COVID-19 in adults and children [12 years of age and older weighing at least 88 pounds (40 kg)] with positive results of direct SARS-CoV-2 viral testing, and who are at high risk for progression to severe COVID-19, including hospitalization or . PAXLOVID is investigational because it is still being studied. There is limited information about the safety and effectiveness of using PAXLOVID to treat people with zakm-su-gwjdlkjg COVID-19. The FDA has authorized the emergency use of PAXLOVID for the treatment of tnoe-ej-stmczwfz COVID-19 in adults and children [12 years of age and older weighing at least 88 pounds (40 kg)] with a positive test for the virus that causes COVID-19, and who are at high risk for progression to severe COVID-19, including hospitalization or , under an EUA. 1 Revised: 30 July 2021 What should I tell my healthcare provider before I take PAXLOVID? Tell your healthcare provider if you: Have any allergies Have liver or kidney disease Are or plan to become Are a child Have any serious illnesses Tell your healthcare provider about all the medicines you take, including prescription and dhfy-twv-nenrlvy medicines, vitamins, and herbal supplements. Some medicines may interact with PAXLOVID and may cause serious side effects. Keep a list of your medicines to show your healthcare provider and pharmacist when you get a new medicine. You can ask your healthcare provider or pharmacist for a list of medicines that interact with PAXLOVID. Do not start taking a new medicine without telling your healthcare provider. Your healthcare provider can tell you if it is safe to take PAXLOVID with other medicines. Tell your healthcare provider if you are taking combined hormonal contraceptive. PAXLOVID may affect how your control pills work. Females who are able to become should use another effective alternative form of contraception or an additional barrier method of contraception. Talk to your healthcare provider if you have any questions about contraceptive methods that might be right for you. How do I take PAXLOVID? PAXLOVID consists of 2 medicines: nirmatrelvir and ritonavir. Take 2 pink tablets of nirmatrelvir with 1 white tablet of ritonavir by mouth 2 times each day (in the morning and in the evening) for 5 days. For each dose, take all 3 tablets at the same time. If you have kidney disease, talk to your healthcare provider. You may need a different dose. Swallow the tablets whole. Do not chew, break, or crush the tablets. Take PAXLOVID with or without food. Do not stop taking PAXLOVID without talking to your healthcare provider, even if you feel better. If you miss a dose of PAXLOVID within 8 hours of the time it is usually taken, take it as soon as you remember. If you miss a dose by more than 8 hours, skip the missed dose and take the next dose at your regular time. Do not take 2 doses of PAXLOVID at the same time. If you take too much PAXLOVID, call your healthcare provider or go to the nearest hospital emergency room right away. If you are taking a ritonavir-or cobicistat-containing medicine to treat hepatitis C or Human Immunodeficiency Virus (HIV), you should continue to take your medicine as prescribed by your healthcare provider. Talk to your healthcare provider if you do not feel better or if you feel worse after 5 days. Who should generally not take PAXLOVID? Do not take PAXLOVID if: You are allergic to nirmatrelvir, ritonavir, or any of the ingredients in PAXLOVID You are taking any of the following medicines: Alfuzosin Pethidine, propoxyphene Ranolazine Amiodarone, dronedarone, flecainide, propafenone, quinidine Colchicine Lurasidone, pimozide, clozapine Dihydroergotamine, ergotamine, methylergonovine Lovastatin, simvastatin Sildenafil (Revatio ) for pulmonary arterial hypertension (PAH) Triazolam, oral midazolam Apalutamide Carbamazepine, phenobarbital, phenytoin Rifampin [place] s Wort (hypericum perforatum) Taking PAXLOVID with these medicines may cause serious or life-threatening side effects or affect how PAXLOVID works. These are not the only medicines that may cause serious side effects if taken with PAXLOVID. PAXLOVID may increase or decrease the levels of multiple other medicines. It is very important to tell your healthcare provider about all of the medicines you are taking because additional laboratory tests or changes in the dose of your other medicines may be necessary while you are taking PAXLOVID. Your healthcare provider may also tell you about specific symptoms to watch out for that may indicate that you need to stop or decrease the dose of some of your other medicines. What are the important possible side effects of PAXLOVID? Possible side effects of PAXLOVID are: Allergic Reactions. Allergic reactions can happen in people taking PAXLOVID, even after only 1 dose. Stop taking PAXLOVID and call your healthcare provider right away if you get any of the following symptoms of an allergic reaction: hives trouble swallowing or breathing swelling of the mouth, lips, or face throat tightness hoarseness skin rash Liver Problems. Tell your healthcare provider right away if you have any of these signs and symptoms of liver problems: loss of appetite, yellowing of your skin and the whites of eyes (jaundice), dark-colored urine, pale colored stools and itchy skin, stomach area (abdominal) pain. Resistance to HIV Medicines. If you have untreated HIV infection, PAXLOVID may lead to some HIV medicines not working as well in the future. Other possible side effects include: altered sense of taste diarrhea high blood pressure muscle aches These are not all the possible side effects of PAXLOVID. Not many people have taken PAXLOVID. Serious and unexpected side effects may happen. PAXLOVID is still being studied, so it is possible that all of the risks are not known at this time. What other treatment choices are there? Veklury (remdesivir) is FDA-approved for the treatment of dbog-fg-rawbaxwy COVID-19 in certain adults and children. Talk with your doctor to see if Veklury is appropriate for you. Like PAXLOVID, FDA may also allow for the emergency use of other medicines to treat people with COVID-19. Go to https://www.fda.gov/emergency-prep aredness-andresponse/fki-bomhm-aot viwxqwx-ndo-kkbbbs-framework/emerg qenn-vab-oaifzkdlwnuxx for information on the emergency use of other medicines that are authorized by FDA to treat people with COVID-19. Your healthcare provider may talk with you about clinical trials for which you may be eligible. It is your choice to be treated or not to be treated with PAXLOVID. Should you decide not to receive it or for your child not to receive it, it will not change your standard medical care. What if I am or ? There is rhinologist treating women or mothers with PAXLOVID. For a mother and unborn baby, the benefit of taking PAXLOVID may be greater than the risk from the treatment. If you are , discuss your options and specific situation with your healthcare provider. It is recommended that you use effective barrier contraception or do not have sexual activity while taking PAXLOVID. If you are , discuss your options and specific situation with your healthcare provider. How do I report side effects with PAXLOVID? Contact your healthcare provider if you have any side effects that bother you or do not go away. Report side effects to [place] at www.[employer]Jump.gov/medKids Quizine or call 6-819-RID3072 or you can report side effects to [employer] at the contact information provided below. Website Fax number Telephone number [employer] How should I store PAXLOVID? Store PAXLOVID tablets at room temperature, between 68?F to 77?F (20?C to 25?C). How can I learn more about COVID-19? Ask your healthcare provider. Visit https://www.cdc.gov/COVID19. Contact your local or state public health department. What is an Emergency Use Authorization (EUA)? The [place] FDA has made PAXLOVID available under an emergency access mechanism called an Emergency Use Authorization (EUA). The EUA is supported by a [place] of Health and Human Service (HHS) declaration that circumstances exist to justify the emergency use of drugs and biological products during the COVID-19 pandemic. PAXLOVID for the treatment of lilf-kk-lvaaypsx COVID-19 in adults and children [12 years of age and older weighing at least 88 pounds (40 kg)] with positive results of direct SARS-CoV-2 viral testing, and who are at high risk for progression to severe COVID-19, including hospitalization or , has not undergone the same type of review as an FDA-approved product. In issuing an EUA under the COVID-19 public health emergency, the FDA has determined, among other things, that based on the total amount of scientific evidence available including data from adequate and well-controlled clinical trials, if available, it is reasonable to believe that the product may be effective for diagnosing, treating, or preventing COVID-19, or a serious or life-threatening disease or condition caused by COVID-19; that the known and potential benefits of the product, when used to diagnose, treat, or prevent such disease or condition, outweigh the known and potential risks of such product; and that there are no adequate, approved, and available alternatives. All of these criteria must be met to allow for the product to be used in the treatment of patients during the COVID-19 pandemic. The EUA for PAXLOVID is in effect for the duration of the COVID-19 declaration justifying emergency use of this product, unless terminated or revoked (after which the products may no longer be used under the EUA). Additional Information For general questions, visit the website or call the telephone number provided below. Website Telephone number wwwHomevv.com (4-768-G13-HJOX) You can also go to www.[employer] or call for more information. Pfizer Distributed by [employer] [place] [address] [id number] Revised: 30 July 2021 documented in this encounter [facility] 03-03-2022 Miscellaneous Notes Patient cancelled appt with [employer] for tomorrow. Patient declined offer to change appt to VV. Reports heart group recommended appt b/c she was having CP, and informed her to get testing through pcp. Reports she tested positive for covid today on home test. States now that she thinks about it, it was probably covid that was causing the chest aches, because her whole body aches. Reports symptoms started on : cough, body aches, runny nose. Patient states she is not interested in taking the antiviral, but aware would need VV to determine if she qualifies to take it, and would need to start it within 5 days of symptom onset. Reports she was scheduled to get the booster yesterday, but had to cancel it b/c she did not feel good. Advised to quarantine for 5 days from start of symptoms. If after 5 days, symptoms have improved and no fever without the use of fever reducing medication, can come out of quarantine, but continue to wear mask around people for 5 more days. Advised to get plenty of rest and fluids, and treat symptoms with OTC medications if needed, use humidifier if home is dry. Patient agreeable and agreeable to ER for any concerning symptoms such as CP or SOB. documented in this encounter [facility] 01-14-2022 Instructions Jeancarlos Vasques APRN.WATER MAINTENANCE SUPERVISOR - 01/14/2022 7:50 AM EDT Screening schedule The following prevention plan is recommended: BP CONTROLLED (<130/80) Never done ADVANCE DIRECTIVE DISCUSSION Never done COVID-19 VACCINE(4 - Booster for Pfizer series) due on 06/21/2021 DTAP,TDAP,TD(2 - Td or Tdap) due on 09/08/2021 INFLUENZA(1) due on 01/13/2022 MAMMOGRAM due on 01/20/2022 WHAT YOU CAN DO TO PREVENT FALLS Many falls can be prevented. By making some changes, you can lower your chances of falling. Four things YOU can do to prevent falls for you* and your caregiver 1. Begin a regular exercise program Exercise is one of the most important ways to lower your chances of falling. It makes you stronger and helps you feel better. Exercises that improve balance and coordination (like Godwin Chi) are the most helpful. Lack of exercise leads to weakness and increases your chances of falling. Ask your doctor or health care provider about the best type of exercise program for you. 2. Have your health care provider review your medicines Have your doctor or pharmacist review all the medicines you take, even waqv-tun-vbaizqg medicines. As you get older, the way medicines work in your body can change. Some medicines, or combinations of medicines, can make you sleepy or dizzy and can cause you to fall. 3. Have your vision checked Have your eyes checked by an eye doctor at least once a year. You may be wearing the wrong glasses or have a condition like glaucoma or cataracts that limits your vision. Poor vision can increase your chances of falling. 4. Make your home safer About half of all falls happen at home. To make your home safer: Remove things you can trip over (like papers, books, clothes, and shoes) from stairs and places where you walk. Remove small throw rugs or use double-sided tape to keep the rugs from slipping. Keep items you use often in cabinets you can reach easily without using a step stool. Have grab bars put in next to your toilet and in the tub or shower. Use non-slip mats in the bathtub and on shower floors. Improve the lighting in your home. As you get older, you need brighter lights to see well. Hang light-weight curtains or shades to reduce glare. Have handrails and lights put in on all staircases. Wear shoes both inside and outside the house. Avoid going barefoot or wearing slippers. For more information, contact: Centers for Disease Control and Prevention www.cdc.gov/injury * This information may not apply if you have certain medical conditions. documented in this encounter [facility] 01-14-2022 History of Present illness Narrative Amina Tobar is a 71 year old female here for a Medicare Subsequent Annual Wellness Visit Health Risk Assessment In general, health is: Excellent Concerns with tiredness, difficulties with sexual function, balance, teeth/dentures: Not at all [place] anxious, stressed, angry, irritable, lonely, isolated, or had thoughts of hurting themself: Not at all Eats healthy foods including fruits, vegetables, whole grains, and fiber-rich foods: Nearly every day Has little interest or pleasure in doing things: Not at all Bothered by feeling down, depressed, or hopeless: Not at all Needs help with grocery shopping, cooking, housework, bathing, grooming, dressing, eating, sitting or standing, walking, using the toilet, handling finances, taking medications, using the telephone, or driving: No Following safety precautions in the home environment and vehicle: removed throw rugs from floors, installed grab bars in the bathroom, handrails in stairwells, having adequate lighting, wearing seatbelt at all times?: Yes Smokes cigarettes, vapes, or chew tobacco: No Number of days per week engages in exercise: 5 days Average alcohol consumption: 2-4 times a month PMH significant for ACTIVE PROBLEM LIST Generalized Osteoarthrosis, Unspecified Site Disorder of Bone and Cartilage, Unspecified Diffuse Cystic Mastopathy Irritable Bowel Syndrome Moderate Episode of Recurrent Major Depressive Disorder (Hcc) Allergic Rhinitis, Cause Unspecified Esophageal Reflux Hypothyroidism Sciatica Hyperlipemia, Mixed Spinal Stenosis, Lumbar Region, Without Neurogenic Claudication Vitamin D Deficiency Trigger Finger, left ring finger Lipoma of Unspecified Site Parapelvic Renal Cyst Other and Unspecified Noninfectious Gastroenteritis and Colitis(558.9) Essential Hypertension Anxiety, Generalized Abdominal Pain, Rlq Psychophysiological Insomnia Specialists: Sees Dr Westbrook for varicosities, R RIOS. Sees Arianne Khan gastroenterology for GERD. [facility] [place] [facility], recent skin check. [facility], has had cataract surgery and eye lift bilateral. Dr Gaffney pain management. Dr [facility] for hearing check, not needing hearing aids. Last 14 Encounter BP Readings: Date: BP: 01/14/2022 130/70 08/24/2021 128/76 08/13/2021 118/78 07/27/2021 122/74 07/20/2021 120/78 05/28/2021 135/80 03/16/2021 132/60 02/23/2021 139/69 01/04/2021 143/78 08/25/2020 171/77 07/07/2020 132/72 02/06/2020 148/78 02/06/2020 138/74 06/18/2019 140/80 . Hypothyroidism. TSH Date Value 12/06/2021 1.120 mIU/L 07/07/2021 0.670 uU/mL 07/02/2020 1.630 uU/mL ) GERD stable Anxiety/depression: stable Insomnia: stable Review of Systems Objective BP 130/70 Pulse 80 Resp 16 Ht 153.7 cm (5' 0.5 ) Wt 72.1 kg (159 lb) BMI 30.54 kg/m Physical Exam Alert oriented answering questions appropriately normal HR, normal RR, unlabored. ALLERGIES Allergen Reactions Axid [Nizatidine] Hives Cymbalta [Duloxetin* Insomnia Lipitor [Atorvastat* Other: See Comments Insomnia, headache and nausea Lisinopril Cough cough with vomiting Losartan Cough Meridia [Sibutramin* Rash Sulfabenzamide Intolerance red mouth; sulfa med caused adverse effect Medications levothyroxine (SYNTHROID) 75 mcg tablet Take 1 tablet by mouth daily before breakfast. Except 05/16 tab vit B complex no.12/niacin,B3, (VITAMIN B COMPLEX NO.12-NIACIN ORAL) Take 1 tablet by mouth once daily. omeprazole (PRILOSEC) 40 mg capsule Take 1 capsule by mouth twice daily before meals (0600/1600). hydroCHLOROthiazide (HYDRODIURIL, ESIDRIX) 50 mg tablet Take 1 tablet by mouth once daily. LORazepam (ATIVAN) 0.5 mg Take 1 at bedtime as needed buPROPion XL (WELLBUTRIN XL) 150 mg 24 hr tablet Take 1 tablet by mouth once daily. Add to Wellbutrin XL 300 mg dose traZODone (DESYREL) 100 mg tablet Take 1 tablet by mouth daily at bedtime. As directed buPROPion XL (WELLBUTRIN XL) 300 mg 24 hr tablet Take 1 tablet by mouth once daily. With 150mg dose rosuvastatin (CRESTOR) 5 mg tablet Take 1 tablet by mouth daily at bedtime. (Patient taking differently: Take 5 mg by mouth every other day.) Cholecalciferol, Vitamin D3, 50 mcg (2,000 unit) cap Consider 4000 to 5000 IU daily dicyclomine (BENTYL) 10 mg capsule Take 1 capsule by mouth before meals and at bedtime. As needed CALCIUM CARBONATE/VITAMIN D3 (VITAMIN D-3 ORAL) Take by mouth. aspirin, enteric coated (ADULT LOW DOSE ASPIRIN) 81 mg EC tablet Take 1 tablet by mouth once daily. magnesium oxide (MAG-OX) 400 mg (241.3 mg magnesium) tablet Take 1 tablet by mouth twice daily for 7 days. FA/MV,CA,IRON,MIN/LYCOPENE/LUT (MULTIVITAL ORAL) Take by mouth. (Patient not taking: No sig reported) PAST MEDICAL HISTORY Diagnosis Date Allergic rhinitis, cause unspecified Arthritis Depressive disorder, not elsewhere classified with anxiety Diffuse cystic mastopathy Disorder of bone and cartilage, unspecified 05/2003 Esophageal reflux Generalized osteoarthrosis, unspecified site lumbar spine Hypertension Internal hemorrhoids without mention of complication Irritable bowel syndrome Obesity, unspecified Other bursitis disorders right greater trochanter Sciatica Thyrotoxicosis without mention of goiter or other cause, without mention of thyrotoxic crisis or storm 1998 Hyperthyroidism/had radioactive iodine Unspecified hypothyroidism PAST SURGICAL HISTORY Procedure Laterality Date COLONOSCOPY FLX DX W/COLLJ SPEC WHEN PFRMD 07/02/07 COLONOSCOPY FLX DX W/COLLJ SPEC WHEN PFRMD 04/09/14 Colonoscopy ESOPHAGOGASTRODUODENOSCOPY TRANSORAL DIAGNOSTIC 12/1991 EGD ESOPHAGOGASTRODUODENOSCOPY TRANSORAL DIAGNOSTIC 02/27/2020 EGD EYE SURGERY HX Bilateral cataract extraction and lens implants PAST SURGICAL HISTORY OF cataract surgery--right July 2015,left August 2015 SIGMOIDOSCOPY FLX DX W/COLLJ SPEC BR/WA IF PFRMD Sigmoidoscopy, flexible SKIN BIOPSY HX TONSILLECTOMY HX TONSILLECTOMY PRIMARY/SECONDARY <AGE 11 Tonsillectomy/adenoidectomy Social History Tobacco Use Smoking status: Former Types: Cigarettes Start date: 05/15/1986 Smokeless tobacco: Never Substance Use Topics Alcohol use: Yes Alcohol/week: 7.5 standard drinks Types: 3 Glasses of Wine (5oz) per week Drug use: No Component Latest Ref Rng & Units 07/07/2021 12/06/2021 WBC 3.70 - 11.00 k/uL 5.34 RBC 3.90 - 5.20 m/uL 4.55 Hemoglobin 11.5 - 15.5 g/dL 14.4 Hematocrit 36.0 - 46.0 % 41.4 MCV 80.0 - 100.0 fL 91.0 MCH 26.0 - 34.0 pG 31.6 MCHC 30.5 - 36.0 g/dL 34.8 RDW-CV 11.5 - 15.0 % 12.6 Platelet Count 150 - 400 k/uL 256 MPV 9.0 - 12.7 fL 9.4 Neut% % 41.8 Abs Neut (ANC) 1.45 - 7.50 k/uL 2.22 Lymph% % 45.5 Abs Lymph 1.00 - 4.00 k/uL 2.43 [place]% % 9.4 Abs [place] <0.87 k/uL 0.50 Eosin% % 2.4 Abs Eosin <0.46 k/uL 0.13 Baso% % 0.9 Abs Baso <0.11 k/uL 0.05 Nucleated Reds 0 /100 WBC 0.0 Absolute nRBC <0.01 k/uL <0.01 Diff Type Auto Diff Protein, Total 6.3 - 8.0 g/dL 6.3 Albumin 3.9 - 4.9 g/dL 4.0 Calcium 8.5 - 10.2 mg/dL 9.1 Bilirubin, Total 0.2 - 1.3 mg/dL 0.3 Alkaline Phosphatase 34 - 123 U/L 87 AST 13 - 35 U/L 18 Glucose 74 - 99 mg/dL 110 (H) BUN 7 - 21 mg/dL 11 Creatinine 0.58 - 0.96 mg/dL 0.80 Sodium 136 - 144 mmol/L 137 Potassium 3.7 - 5.1 mmol/L 3.9 Chloride 97 - 105 mmol/L 102 CO2 22 - 30 mmol/L 25 Anion Gap 9 - 18 mmol/L 10 ALT 7 - 38 U/L 13 eGFR- >60 eGFR-All Other Races . >60 Cholesterol, Total <200 mg/dL 186 Triglyceride <150 mg/dL 90 HDL Cholesterol >39 mg/dL 78 LDL Cholesterol <100 mg/dL 90 Non HDL Cholesterol <130 mg/dL 108 Fasting Time hrs 12 VLDL Cholesterol <30 mg/dL 18 TC:HDL Ratio <5.10 2.38 LDL:HDL Ratio <2.54 1.15 Hemoglobin A1C 4.3 - 5.6 % 5.8 (H) Estimated Average Glucose mg/dL 120 Magnesium 1.7 - 2.3 mg/dL 1.8 TSH 0.270 - 4.200 mIU/L 0.670 1.120 Free T4 0.9 - 1.7 ng/dL 1.4 1.3 Vitamin D 25 Hydroxy 31.0 - 80.0 ng/mL 33.0 Free T3 2.3 - 4.1 pg/mL 3.0 Current Providers Patient Care Team: Fiorella Hall MD as PCP - General Specialists: I have reviewed specialist-related care of the patient in the medical record. and Outside specialists seen: yes Medical/Family history review Reviewed and updated problem list, medical history, surgical history, medication list, and allergies. Opioid use review Patient is not currently using opioids. Depression screening Depression screening tool completed and reviewed. Based on score and interview, patient is not at risk for depression. Screening tool discussed with patient, and I recommended no further intervention at this time. Cognitive screening Mini-cog score: recently WNL Cognitive screening reviewed and no further action needed (score 3-5) Functional Observation Was the patient's timed Up & Go test unsteady or longer than 30 seconds? No Advance Care Planning End of Life planning discussed, including patient's advanced directive wishes: Yes Measurements BP 130/70 Pulse 80 Resp 16 Ht 5' .5 (1.54m) Wt 159 lb (72.1kg) BMI 30.53 kg/(m^2). Visual acuity:see flow sheet Hearing Evaluation: within normal limits Assessment/Plan - Counseled on healthy diet and regular exercise - Fall avoidance - Vaccines recommended COVID-19, Influenza, and Tdap at pharmacy - Mammogram recommended and ordered documented in this encounter [facility] 12-03-2021 Miscellaneous Notes Phoned patient and notified of standing orders for thyroid- per provider's message. Patient agreeable. Filed order for standing orders--may check up to every 2 months Pt called in and reports she think her thyroid might be off. She reports being shaky, having the sweats, and at time her hear doesn't feel in rhythm this morning she said it felt like she was skipping beats. Pt is asking if provider would put in standing Thyroid lab orders for her. She states I don't know if it's my Thyroid or my heart, but might as well start at my Thyroid since this is how I usually feel. Please call and advise Pt. documented in this encounter [facility] 11-24-2021 History of Present illness Narrative POPULATION HEALTH NAVIGATION OUTREACH Action/JULIETI Vm left for a return call Due for mammogram in January Naviscanhart message sent Pt identified by name and : NO Outreach Outcome/Action Unable to reach patient: Left message CryptoSeal[employer] message sent Did you use a PCP flex slot to schedule this appointment? N/A Reason for Outreach Care Gap or Scheduling/Wellness visits Payer: Payor: [employer] CROSS AND BLUE SHIELD / Plan: [employer] MED[employer]LUE ACCESS / Product Type: PPO / Care Gap Reviewed:: Breast Cancer screening Reminder: Reminder note to check Health Maintenance for items below Health Maintenance items due: ADVANCE DIRECTIVE DISCUSSION Never done COVID-19 VACCINE(4 - Booster for Pfizer series) due on 06/21/2021 DTAP,TDAP,TD(2 - Td or Tdap) due on 09/08/2021 MAMMOGRAM due on 01/20/2022 Message Sent to Practice: No Navigation Signature: Alejandra Thompson Population Health Navigator November 24, 2021 12:35 PM documented in this encounter [facility] 08-24-2021 History of Present illness Narrative This office note has been dictated. Annemarie Westbrook DO documented in this encounter [facility] 08-13-2021 Instructions Jackelyn Kim - 08/13/2021 10:22 AM EDT Post Sclerotherapy Instructions 1. If you have a bandage on your leg, leave it on for 24 hours or as instructed, then replace with compression stockings as ordered. 2. You may take a shower when the bandage is removed or you are instructed to remove the compression stockings. Apply rubbing alcohol to the vein puncture site(s) after the shower. No baths, swimming pools or hot tubs for 72 hours 3. After the first shower, you may wear your compression stockings, if ordered, during the day for 2 weeks. The more you wear your stockings, the better the results will be. 4. Activity of normal daily living may be resumed when you return home. Elevate your leg above your heart whenever you are sitting or resting. Take it easy for 2 days. a. You are encouraged to walk at least 20 minutes every several hours during the day. Walking will help the leg's recovery process. b. Please also refrain from vigorous gym exercises or running for 7 days following your procedure. c. Reviewed signs and symptoms of infection, call office or go to ER if these occur. d. Avoid exposure to excessive sun during the 2 weeks following the procedure. If you notice discoloration over the vein treated, avoid excessive sun for one year. The staining may go away over time and may take up to 1-2 years to completely disappear 5. You should not require any pain medications. If you experience mild pain, take over the counter medications of your choice: Tylenol, Advil, etc. Icing the sites for 5 minutes twice a day for the first 2 days can help with the inflammation and discomfort 6. Your treatment was performed with Polidocanol solution. This should damage the vessel wall and thus cause eliminations of the vein. Mild bruising may occur. You may notice hardening of the vein in the areas treated. You will gradually notice the veins fading. This can take 1-6 months or longer for you to notice the full effect. If any skin blistering is noticed, please call the office. documented in this encounter [facility] 08-13-2021 Nurse Note Sclerotherapy Procedure Record Amina Tobar August 13, 2021 [id number] Physician: Dr. Westbrook RN: Jackelyn Kim RVT Jah Isidro ALLERGIES Allergen Reactions Axid [Nizatidine] Hives Cymbalta [Duloxetin* Insomnia Lipitor [Atorvastat* Other: See Comments Insomnia, headache and nausea Lisinopril Cough cough with vomiting Losartan Cough Meridia [Sibutramin* Rash Sulfabenzamide Intolerance red mouth; sulfa med caused adverse effect Current Outpatient Medications on File Prior to Visit Medication Sig omeprazole (PRILOSEC) 40 mg capsule Take 1 capsule by mouth twice daily before meals (0600/1600). LORazepam (ATIVAN) 0.5 mg Take 1 at bedtime as needed buPROPion XL (WELLBUTRIN XL) 150 mg 24 hr tablet Take 1 tablet by mouth once daily. Add to Wellbutrin XL 300 mg dose traZODone (DESYREL) 100 mg tablet Take 1 tablet by mouth daily at bedtime. As directed buPROPion XL (WELLBUTRIN XL) 300 mg 24 hr tablet Take 1 tablet by mouth once daily. With 150mg dose rosuvastatin (CRESTOR) 5 mg tablet Take 1 tablet by mouth daily at bedtime. (Patient taking differently: Take 5 mg by mouth every other day. ) levothyroxine (SYNTHROID) 75 mcg tablet Take 1 tablet by mouth daily before breakfast. Except 1/2 tab Mon, Mon and Monday aspirin, enteric coated (ADULT LOW DOSE ASPIRIN) 81 mg EC tablet Take 1 tablet by mouth once daily. Cholecalciferol, Vitamin D3, 50 mcg (2,000 unit) cap Consider 4000 to 5000 IU daily dicyclomine (BENTYL) 10 mg capsule Take 1 capsule by mouth before meals and at bedtime. As needed CALCIUM CARBONATE/VITAMIN D3 (VITAMIN D-3 ORAL) Take by mouth. hydroCHLOROthiazide (HYDRODIURIL, ESIDRIX) 50 mg tablet Take 1 tablet by mouth once daily. magnesium oxide (MAG-OX) 400 mg (241.3 mg magnesium) tablet Take 1 tablet by mouth twice daily for 7 days. FA/MV,CA,IRON,MIN/LYCOPENE/LUT (MULTIVITAL ORAL) Take by mouth. (Patient not taking: Reported on 07/20/2021 ) No current facility-administered medications on file prior to visit. Time out Verification Immediately Before Procedure Performed Time: 1008 am UNIVERSAL PROTOCOL / SAFETY CHECKLIST Procedure to be Performed: sclerotherapy Sign In: A Moment of CARE was completed. Personnel directly involved with the procedure wore the appropriate PPE (Personal Protective Equipment). Patient/Surrogate Stated/Verified: PATIENT VERIFIED(optional for EMERGENT procedures): Patient name, Date of , Relevant allergies and The intended procedure Time Out Communication: Intended patient and procedure match the source documents. Consent documented and matches the intended procedure. No correct side/site applicable for marking and visibility. Medications required for procedure verified. Sign Out: SIGN OUT (optional for EMERGENT procedures): No specimen collected. Jackelyn Kim Sclerotherapy Start Time: 1010 am End Time: 1025 am Right Lower Extremity: Medical calf Left Lower Extremity: Lateral calf Total Polidocanol Used: 0.5% 1ml Complications: None Dressing: Compression Stockings: 20-30-mmHg Follow Up: As already scheduled Supervisor Cigarette Making Department: Sanna Masters NP Physician: Dr. Annemarie Westbrook DO documented in this encounter [facility] 08-13-2021 History of Present illness Narrative VASCULAR SURGERY ESTABLISHED PATIENT SERVICE DATE: 08/13/2021 SERVICE TIME: 9:30 AM PRIMARY CARE PHYSICIAN: Fiorella Hall MD SUBJECTIVE HISTORY OF PRESENT ILLNESS: Patient returns for a follow up for sclerotherapy. She has noticed improvement with a new small right calf varicosity cluster. Reviewed procedure and consent previously obtained. She previously underwent US guided sclerotherapy on 05/28/21. PAST MEDICAL/SURGICAL/FAMILY/SOCIAL HISTORY PAST MEDICAL HISTORY Diagnosis Date Allergic rhinitis, cause unspecified Arthritis Depressive disorder, not elsewhere classified with anxiety Diffuse cystic mastopathy Disorder of bone and cartilage, unspecified 05/2003 Esophageal reflux Generalized osteoarthrosis, unspecified site lumbar spine Hypertension Internal hemorrhoids without mention of complication Irritable bowel syndrome Obesity, unspecified Other bursitis disorders right greater trochanter Sciatica Thyrotoxicosis without mention of goiter or other cause, without mention of thyrotoxic crisis or storm 1998 Hyperthyroidism/had radioactive iodine Unspecified hypothyroidism PAST SURGICAL HISTORY Procedure Laterality Date COLONOSCOPY FLX DX W/COLLJ SPEC WHEN PFRMD 07/02/07 COLONOSCOPY FLX DX W/COLLJ SPEC WHEN PFRMD 04/09/14 Colonoscopy ESOPHAGOGASTRODUODENOSCOPY TRANSORAL DIAGNOSTIC 12/1991 EGD ESOPHAGOGASTRODUODENOSCOPY TRANSORAL DIAGNOSTIC 02/27/2020 EGD EYE SURGERY HX Bilateral cataract extraction and lens implants PAST SURGICAL HISTORY OF cataract surgery--right July 2015,left August 2015 SIGMOIDOSCOPY FLX DX W/COLLJ SPEC BR/WA IF PFRMD Sigmoidoscopy, flexible SKIN BIOPSY HX TONSILLECTOMY HX TONSILLECTOMY PRIMARY/SECONDARY <AGE 11 Tonsillectomy/adenoidectomy FAMILY HISTORY Problem Relation Age of Onset Diabetes Father also CAD/PA Coronary Artery Disease Mother CABG at age 80 Cancer Other aunt lung cancer SOCIAL HISTORY Social History Tobacco Use Smoking status: Former Smoker Start date: 05/15/1986 Smokeless tobacco: Never Used Substance Use Topics Alcohol use: Yes Alcohol/week: 7.5 standard drinks Types: 3 Glasses of Wine (5oz) per week Drug use: No MEDICATIONS/ALLERGIES Current Outpatient Medications Medication Sig Dispense Refill omeprazole (PRILOSEC) 40 mg capsule Take 1 capsule by mouth twice daily before meals (0600/1600). 180 capsule 3 hydroCHLOROthiazide (HYDRODIURIL, ESIDRIX) 50 mg tablet Take 1 tablet by mouth once daily. 90 tablet 3 LORazepam (ATIVAN) 0.5 mg Take 1 at bedtime as needed 30 tablet 0 buPROPion XL (WELLBUTRIN XL) 150 mg 24 hr tablet Take 1 tablet by mouth once daily. Add to Wellbutrin XL 300 mg dose 90 tablet 3 traZODone (DESYREL) 100 mg tablet Take 1 tablet by mouth daily at bedtime. As directed 90 tablet 3 buPROPion XL (WELLBUTRIN XL) 300 mg 24 hr tablet Take 1 tablet by mouth once daily. With 150mg dose 90 tablet 3 rosuvastatin (CRESTOR) 5 mg tablet Take 1 tablet by mouth daily at bedtime. (Patient taking differently: Take 5 mg by mouth every other day. ) 90 tablet 0 levothyroxine (SYNTHROID) 75 mcg tablet Take 1 tablet by mouth daily before breakfast. Except 1/2 tab Mon, Mon and Monday 90 tablet 3 aspirin, enteric coated (ADULT LOW DOSE ASPIRIN) 81 mg EC tablet Take 1 tablet by mouth once daily. Cholecalciferol, Vitamin D3, 50 mcg (2,000 unit) cap Consider 4000 to 5000 IU daily dicyclomine (BENTYL) 10 mg capsule Take 1 capsule by mouth before meals and at bedtime. As needed 60 capsule 1 magnesium oxide (MAG-OX) 400 mg (241.3 mg magnesium) tablet Take 1 tablet by mouth twice daily for 7 days. 14 tablet 0 CALCIUM CARBONATE/VITAMIN D3 (VITAMIN D-3 ORAL) Take by mouth. FA/MV,CA,IRON,MIN/LYCOPENE/LUT (MULTIVITAL ORAL) Take by mouth. (Patient not taking: Reported on 07/20/2021 ) No current facility-administered medications for this visit. ALLERGIES Allergen Reactions Axid [Nizatidine] Hives Cymbalta [Duloxetin* Insomnia Lipitor [Atorvastat* Other: See Comments Insomnia, headache and nausea Lisinopril Cough cough with vomiting Losartan Cough Meridia [Sibutramin* Rash Sulfabenzamide Intolerance red mouth; sulfa med caused adverse effect OBJECTIVE BP 118/78 (BP Site: Left Arm, BP Position: Sitting, BP Cuff Size: Regular Adult) Pulse 78 Ht 154.9 cm (5' 1 ) Wt 68.9 kg (152 lb) SpO2 100% BMI 28.72 kg/m Gen- no distress Ext- small calf varicose veins The patient was placed in the supine position and the bilateral lower extremities were cleansed with isopropyl alcohol. Syringes containing 2 mL of 0.5% Asclera were prepared and veins in the anterior, medial, lateral bilateral legs were injected using an angled 30-gauge needle. A total of 1.0 mL of solution injection. Cotton balls were used to apply pressure secured down with paper tape. Once all injections were completed the legs were cleansed with isopropyl alcohol and the patient put on coban compression wrap. There were no complications and the patient tolerated the procedure well. ASSESSMENT Symptomatic varicose veins s/p sclerotherapy PLAN/RECOMMENDATIONS Reviewed going home instructions Follow up as scheduled with carotid duplex for carotid stenosis Sanna Masters APRN.REVERBERATORY FURNACE OPERATOR Attending Note I have personally performed a face to face assessment of the patient and have reviewed the JORGE note. I performed a substantive portion of the visit including all aspects of the sclerotherapy with assistance of Sanna Masters. Patient tolerated procedure well. SIGNATURE: Annemarie Westbrook DO PATIENT NAME: Amina Tobar DATE: August 13, 2021 TIME: 9:30 AM documented in this encounter [facility] 07-20-2021 History of Past i llness Narrative Problem Noted Date Resolved Date Obesity, unspecified 07/20/2021 documented as of this encounter (statuses as of 08/23/2021) [facility]22 History of Past illness Narrative* Problem Noted Date Resolved Date Obesity, unspecified 07/20/2021 documented as of this encounter (statuses as of 08/24/2021) [facility] History of Past illness Narrative* Problem Noted Date Resolved Date Obesity, unspecified 07/20/2021 documented as of this encounter (statuses as of 10/10/2021) [facility] History of Past illness Narrative* Problem Noted Date Resolved Date Obesity, unspecified 07/20/2021 documented as of this encounter (statuses as of 11/24/2021) [address]-2022 History of Past illness Narrative* Problem Noted Date Resolved Date Obesity, unspecified 07/20/2021 documented as of this encounter (statuses as of 12/03/2021) [address]-2022 History of Past illness Narrative* Problem Noted Date Resolved Date Obesity, unspecified 07/20/2021 documented as of this encounter (statuses as of 01/14/2022) [address]-2022 History of Past illness Narrative* Problem Noted Date Resolved Date Obesity, unspecified 07/20/2021 documented as of this encounter (statuses as of 03/04/2022) [address]22 History of Past illness Narrative* Problem Noted Date Resolved Date Obesity, unspecified 07/20/2021 documented as of this encounter (statuses as of 04/04/2022) [address]22 History of Past illness Narrative* Problem Noted Date Resolved Date Obesity, unspecified 07/20/2021 documented as of this encounter (statuses as of 07/05/2022) [address]22 History of Past illness Narrative* Problem Noted Date Resolved Date Obesity, unspecified 07/20/2021 documented as of this encounter (statuses as of 07/21/2022) [address]22 History of Past illness Narrative* Problem Noted Date Resolved Date Obesity, unspecified 07/20/2021 documented as of this encounter (statuses as of 09/01/2022) [address]22 History of Past illness Narrative* Problem Noted Date Resolved Date Obesity, unspecified 07/20/2021 documented as of this encounter (statuses as of 09/08/2022) [address]22 History of Past illness Narrative* Problem Noted Date Resolved Date Obesity, unspecified 07/20/2021 documented as of this encounter (statuses as of 11/07/2022) [address]22 History of Past illness Narrative* Problem Noted Date Resolved Date Obesity, unspecified 07/20/2021 documented as of this encounter (statuses as of 11/12/2022) [facility]03-08-2022 History of Past illness Narrative* Problem Noted Date Diagnosed Date Resolved Date Obesity, unspecified 022 documented as of this encounter (statuses as of 03/04/2023) [facility] History of Past illness Narrative* Problem Noted Date Diagnosed Date Resolved Date Obesity, unspecified 022 documented as of this encounter (statuses as of 03/13/2023) [facility]03-08[facility]2022 History of Past illness Narrative* Problem Noted Date Diagnosed Date Resolved Date Obesity, unspecified 022 documented as of this encounter (statuses as of 03/16/2023) [facility]03-08-2022 History of Past illness Narrative* Problem Noted Date Diagnosed Date Resolved Date Obesity, unspecified 022 documented as of this encounter (statuses as of 03/19/2023) [facility]03-08-[facility] History of Past illness Narrative* Problem Noted Date Diagnosed Date Resolved Date Obesity, unspecified 022 documented as of this encounter (statuses as of 03/30/2023) [facility]03-08-2022 Instructions* Patient Instructions* Fiorella Hall MD - 07/20/2021 9:16 AM EST Vitamin D 5000 units daily recommended to get level up over 40. Sleep Hygiene and Good Sleep Habits Establish a regular routine that includes going to bed and getting up at the same time every day, even on weekends. Maintaining a consistent sleep-wake cycle is the delgado to better health overall. Get an adequate amount of sleep every night. Determine the amount of sleep you need by keeping track of how long you sleep without using an alarm clock for a week. Maintain this personal sleep requirement. Go to bed when you are sleepy. If you have difficulty falling asleep or wake up shortly after goingto sleep, leave the bedroom and read quietly or do some other relaxing activity. Avoid bright lights as this can cue your wake cycle. Develop sleep rituals before going to bed. Do the same things in the same order before going to bedto cue your body to slow down and relax. Avoid stress and worries at bedtime. Address tomorrow's activities, concerns, or distractions earlier in the day. Certain activities, such as listening to soft music, reading, or taking a warm bath, can help you wind down. Use your bed for sleeping and sex only. Often, doing other activities in bed like watching TV, paying bills, or working only serve to initiate worries and concerns. Let your mind associate the bed with sleeping, relaxing, and pleasure. Avoid heavy meals late in the evening; similarly, avoid going to bed hungry. A light snack, especially dairy foods, can help you sleep. Reduce your intake of caffeine and nicotine 4-6 hours before going to sleep. Stimulants interfere with your ability to fall asleep and progress into deep sleep. 200mg caffeine (a large [employer] coffee) taken at 8 AM will impair the sleep architecture that night. Avoid alcohol 4-6 hours before bedtime. As a depressant that slows brain activity, alcohol may initially make you tired, but you will end up having fragmented sleep. In addition, being tired intensifies the effects of alcohol. Alcohol also aggravates snoring and sleep apnea particularly in men. Exercise regularly. Regular exercise, even for 20 minutes, 3 times a week, promotes deep sleep. Don't nap for more than 30 minutes or after 3 PM. Avoiding naps all together will ensure that you are tired at night. Longer naps disrupt the body's ability to stay asleep. Maintain a dark, quiet room to sleep in at a temperature with which you are comfortable. Use sleeping aids conservatively, and avoid using them for more than one or two nights per month. Avoid sleeping pills altogether if you have obstructive sleep apnea because it can be a deadly combination. TIPS FOR A BETTER NIGHT OF SLEEP BEFORE GETTING INTO BED: -Establish a regular routine for bedtime. -Create a positive sleep environment. -Relax before getting into bed. -Avoid alcohol, smoking, caffeine for at least a few hours before bedtime. -Do not go to bed unless you are sleepy. WHILE IN BED: -Turn your clock around (or cover it) and use your alarm if needed. - If you can't fall asleep in 20 minutes (based on your internal sense of time), get out of bed anddo something relaxing or boring (reading, listening to music, etc). Return to bed only when sleepy. -Use your bed only for sleep and sex. IN THE MORNING AND DURING THE DAYTIME: -Wake up at the same time every morning, even on weekends. -Avoid naps during the day. -Avoid caffeinated beverages and food in the evening. -Exercise regularly but not within 4 hours of bedtime. [facility] History of Present illness Narrative* Fiorella Hall MD - 07/20/2021 8:48 AM EST This note was created using StepOut. Subjective Amina Tobar is a 70 year old female. Patient presents with: F/U 6 months SUBJECTIVE: Amina Tobar is a 70 year old year old lady here today for 6 month follow up appointment for review of medical conditions. Been to emergency veterinary technician --everything okay Dr. Hernandez--did eyelid surgery Dr. Westbrook--taking care of varicose veins. Anxiety-- off the charts . Issues with taking care Dennis.([id number]). After surgery--Dr. Mclean had her stop gabapentin. Also had her stop meloxicam. Trazodone has not been helping with sleep every night. Hard to fall asleep. Tosses and turns. Still works at [employer]. Helps dealing with stressors. PAST MEDICAL HISTORY Diagnosis Date Allergic rhinitis, cause unspecified Arthritis Depressive disorder, not elsewhere classified with anxiety Diffuse cystic mastopathy Disorder of bone and cartilage, unspecified 05/2003 Esophageal reflux Generalized osteoarthrosis, unspecified site lumbar spine Hypertension Internal hemorrhoids without mention of complication Irritable bowel syndrome Obesity, unspecified Other bursitis disorders right greater trochanter Sciatica Thyrotoxicosis without mention of goiter or other cause, without mention of thyrotoxic crisis or storm 1998 Hyperthyroidism/had radioactive iodine Unspecified hypothyroidism Current Outpatient Medications Medication Sig rosuvastatin (CRESTOR) 5 mg tablet Take 1 tablet by mouth daily at bedtime. (Patient taking differently: Take 5 mg by mouth every other day. ) levothyroxine (SYNTHROID) 75 mcg tablet Take 1 tablet by mouth daily before breakfast. Except 1/2 tab Mon, Mon and Monday hydroCHLOROthiazide (HYDRODIURIL, ESIDRIX) 50 mg tablet Take 1 tablet by mouth once daily. omeprazole (PRILOSEC) 40 mg capsule Take 1 capsule by mouth twice daily before meals (0600/1600). traZODone (DESYREL) 100 mg tablet Take 1 tablet by mouth daily at bedtime. As directed LORazepam (ATIVAN) 0.5 mg Take 1 at bedtime as needed (Patient not taking: Reported on 07/20/2021) aspirin, enteric coated (ADULT LOW DOSE ASPIRIN) 81 mg EC tablet Take 1 tablet by mouth once daily. buPROPion XL (WELLBUTRIN XL) 300 mg 24 hr tablet Take 1 tablet by mouth once daily. Cholecalciferol, Vitamin D3, 50 mcg (2,000 unit) cap Consider 4000 to 5000 IU daily dicyclomine (BENTYL) 10 mg capsule Take 1 capsule by mouth before meals and at bedtime. As needed magnesium oxide (MAG-OX) 400 mg (241.3 mg magnesium) tablet Take 1 tablet by mouth twice daily for 7 days. meloxicam (MOBIC) 15 mg tablet Take 1 tablet by mouth once daily as needed. (Dr. Gaffney) (Patient not taking: Reported on 05/28/2021 ) CALCIUM CARBONATE/VITAMIN D3 (VITAMIN D-3 ORAL) Take by mouth. FA/MV,CA,IRON,MIN/LYCOPENE/LUT (MULTIVITAL ORAL) Take by mouth. (Patient not taking: Reported on 07/20/2021 ) No current facility-administered medications for this visit. Review of Systems Objective BP 150/78 Pulse 68 Wt 68.5 kg (151 lb) BMI 28.53 kg/m Last 5 Encounter BP Readings: Date: BP: 07/20/2021 150/78 05/28/2021 135/80 03/16/2021 132/60 02/23/2021 139/69 01/04/2021 143/78 Last 5 Encounter Wt Readings: Date: Wt: 07/20/2021 68.5 kg (151 lb) 05/28/2021 69.4 kg (153 lb) 03/16/2021 69.4 kg (153 lb) 02/23/2021 68.5 kg (151 lb) 01/04/2021 67.1 kg (148 lb) Physical Exam Constitutional: Appearance: Normal appearance. HENT: Head: Normocephalic. Eyes: Conjunctiva/sclera: Conjunctivae normal. Cardiovascular: Rate and Rhythm: Normal rate and regular rhythm. Heart sounds: Normal heart sounds. Pulmonary: Effort: Pulmonary effort is normal. Breath sounds: Normal breath sounds. Skin: General: Skin is warm and dry. Neurological: General: No focal deficit present. Mental Status: She is alert and oriented to person, place, and time. Psychiatric: Mood and Affect: Mood normal. Behavior: Behavior normal. Thought Content: Thought content normal. Judgment: Judgment normal. Component Latest Ref Rng & Units 07/02/2020 07/07/2021 WBC 3.70 - 11.00 k/uL 4.68 5.34 RBC 3.90 - 5.20 m/uL 4.39 4.55 Hemoglobin 11.5 - 15.5 g/dL 13.8 14.4 Hematocrit 36.0 - 46.0 % 40.3 41.4 MCV 80.0 - 100.0 fL 91.8 91.0 MCH 26.0 - 34.0 pG 31.4 31.6 MCHC 30.5 - 36.0 g/dL 34.2 34.8 RDW-CV 11.5 - 15.0 % 12.6 12.6 Platelet Count 150 - 400 k/uL 251 256 MPV 9.0 - 12.7 fL 9.4 9.4 Neut% % 41.8 Abs Neut (ANC) 1.45 - 7.50 k/uL 2.22 Lymph% % 45.5 Abs Lymph 1.00 - 4.00 k/uL 2.43 [place]% % 9.4 Abs [place] <0.87 k/uL 0.50 Eosin% % 2.4 Abs Eosin <0.46 k/uL 0.13 Baso% % 0.9 Abs Baso <0.11 k/uL 0.05 Nucleated Reds 0 /100 WBC 0.0 Absolute nRBC <0.01 k/uL <0.01 <0.01 Diff Type Auto Diff Protein, Total 6.3 - 8.0 g/dL 6.4 6.3 Albumin 3.9 - 4.9 g/dL 4.2 4.0 Calcium 8.5 - 10.2 mg/dL 9.3 9.1 Bilirubin, Total 0.2 - 1.3 mg/dL 0.4 0.3 Alkaline Phosphatase 34 - 123 U/L 78 87 AST 13 - 35 U/L 16 18 Glucose 74 - 99 mg/dL 114 (H) 110 (H) BUN 7 - 21 mg/dL 13 11 Creatinine 0.58 - 0.96 mg/dL 0.87 0.80 Sodium 136 - 144 mmol/L 139 137 Potassium 3.7 - 5.1 mmol/L 3.8 3.9 Chloride 97 - 105 mmol/L 102 102 CO2 22 - 30 mmol/L 27 25 Anion Gap 9 - 18 mmol/L 10 10 ALT 7 - 38 U/L 16 13 eGFR- >60 >60 eGFR-All Other Races . >60 >60 Cholesterol, Total <200 mg/dL 244 (H) 186 Triglyceride <150 mg/dL 90 90 HDL Cholesterol >39 mg/dL 69 78 LDL Cholesterol <100 mg/dL 157 (H) 90 Non HDL Cholesterol <130 mg/dL 175 (H) 108 Fasting Time hrs 12 12 VLDL Cholesterol <30 mg/dL 18 18 TC:HDL Ratio <5.10 3.54 2.38 LDL:HDL Ratio <2.54 2.28 1.15 Hemoglobin A1C 4.3 - 5.6 % 5.9 (H) 5.8 (H) Estimated Average Glucose mg/dL 123 120 Magnesium 1.7 - 2.3 mg/dL 1.8 1.8 TSH 0.270 - 4.200 uU/mL 1.630 0.670 Free T4 0.9 - 1.7 ng/dL 1.3 1.4 Free T3 2.3 - 4.1 pg/mL 2.8 Vitamin D 25 Hydroxy 31.0 - 80.0 ng/mL 31.3 33.0 Assessment and Plan Encounter Diagnosis ICD-10-CM 1. Anxiety with depression F41.8 LORazepam (ATIVAN) 0.5 mg traZODone (DESYREL) 100 mg tablet buPROPion XL (WELLBUTRIN XL) 300 mg 24 hr tablet 2. Acquired hypothyroidism E03.9 3. Essential hypertension I10 4. Vitamin D deficiency E55.9 5. Moderate episode of recurrent major depressive disorder (HCC) F33.1 6. Hyperlipemia, mixed E78.2 7. Psychophysiological insomnia F51.04 8. Sleep disturbance G47.9 traZODone (DESYREL) 100 mg tablet ASSESSMENT/PLAN: 1. Anxiety with depression - ICD9: 300.4, ICD10: F41.8 (primary diagnosis) Noted stressors and trouble sleeping. Will increase wellbutrin prn lorazepam--30mg lasted since last appointment - LORAZEPAM 0.5 MG TABLET - TRAZODONE 100 MG TABLET - BUPROPION XL 300 MG 24 HR TAB 2. Acquired hypothyroidism - ICD9: 244.9, ICD10: E03.9 - continue current dose of Synthroid 0.075 mg --Clinically euthyroid. TSH fine. Continue to adjust dose of replacement as indicated based on symptoms and labs. 3. Essential hypertension - ICD9: 401.9, ICD10: I10 - good control - Recommended regular aerobic exercise. - Goal of BP <130/80 4. Vitamin D deficiency - ICD9: 268.9, ICD10: E55.9 Try higher dose to get level over 40 5. Moderate episode of recurrent major depressive disorder (HCC) - ICD9: 296.32, ICD10: F33.1 As noted above 6. Hyperlipemia, mixed - ICD9: 272.2, ICD10: E78.2 - good control - Continue current medication. 7. Psychophysiological insomnia - ICD9: 307.42, ICD10: F51.04 Work on better sleep. Melatonin 3 hours prior to bedtime. Take trazodone routinely to see if helps get sleep back on track 8. Sleep disturbance - ICD9: 780.50, ICD10: G47.9 As above - TRAZODONE 100 MG TABLET [facility]orella Hall [facility] Diagnosis Symptomatic varicose veins of both lower extremities- Primary Varicose veins of lower extremities with other complications [facility] Diagnosis Stenosis of right carotid artery- Primary Occlusion and stenosis of carotid artery without mention of cerebral infarction [facility] Diagnosis Anxiety with depression- Primary Acquired hypothyroidism Unspecified hypothyroidism Essential hypertension Unspecified essential hypertension Vitamin D deficiency Unspecified vitamin D deficiency Moderate episode of recurrent major depressive disorder (HCC) Hyperlipemia, mixed Mixed hyperlipidemia Psychophysiological insomnia Persistent disorder of initiating or maintaining sleep Sleep disturbance Sleep disturbance, unspecified [facility]* Diagnosis Acquired hypothyroidism- Primary Unspecified hypothyroidism documented in this [facility]* Diagnosis Medicare annual wellness visit, subsequent- Primary Routine general medical examination at a health care facility Encounter for immunization Need for other specified prophylactic vaccination against single bacterial disease Encounter for screening mammogram for breast cancer Acquired hypothyroidism Unspecified hypothyroidism Anxiety, generalized Generalized anxiety disorder Moderate episode of recurrent major depressive disorder (HCC) Psychophysiological insomnia Persistent disorder of initiating or maintaining sleep Essential hypertension Unspecified essential hypertension Gastroesophageal reflux disease without esophagitis Esophageal reflux Hyperlipemia, mixed Mixed hyperlipidemia Vitamin D deficiency Unspecified vitamin D deficiency [facility] Diagnosis COVID-19 virus infection- Primary Need for influenza vaccination Need for prophylactic vaccination and inoculation against influenza [facility] Diagnosis Stenosis of right carotid artery- Primary Occlusion and stenosis of carotid artery without mention of cerebral infarction [facility]* Diagnosis Sleep disturbance- Primary Sleep disturbance, unspecified Anxiety, generalized Generalized anxiety disorder Vitamin D deficiency Unspecified vitamin D deficiency Acquired hypothyroidism Unspecified hypothyroidism IFG (impaired fasting glucose) Impaired fasting glucose Hyperlipemia, mixed Mixed hyperlipidemia Encounter for long-term current use of medication Recurrent major depressive disorder, in full remission (HCC) Gastroesophageal reflux disease without esophagitis Esophageal reflux Essential hypertension Unspecified essential hypertension [facility]* Diagnosis Symptomatic varicose veins of both lower extremities- Primary Varicose veins of lower extremities with other complications [facility]* Diagnosis Constipation, unspecified constipation type- Primary [facility]* Diagnosis Constipation, unspecified constipation type Screening for colon cancer Special screening for malignant neoplasms, colon [facility] Diagnosis Medicare annual wellness visit, subsequent- Primary Routine general medical examination at a health care facility Acquired hypothyroidism Unspecified hypothyroidism Vitamin D deficiency Unspecified vitamin D deficiency Gastroesophageal reflux disease without esophagitis Esophageal reflux Anxiety, generalized Generalized anxiety disorder Asymptomatic postmenopausal state Disorder of carotid artery (HCC) Unspecified disorders of arteries and arterioles Breast cancer screening by mammogram Hypomagnesemia Disorders of magnesium metabolism Encounter for long-term current use of medication [facility] Diagnosis Screening for colon cancer- Primary Special screening for malignant neoplasms, colon Constipation, unspecified constipation type [facility] Diagnosis Spinal stenosis, lumbar region, without neurogenic claudication- Primary Sciatica, unspecified laterality [facility] Diagnosis Vitamin D deficiency- Primary Unspecified vitamin D deficiency Essential hypertension Unspecified essential hypertension Anxiety, generalized Generalized anxiety disorder Acquired hypothyroidism Unspecified hypothyroidism Recurrent major depressive disorder, in full remission (HCC) Moderate episode of recurrent major depressive disorder (HCC) Disorder of carotid artery (HCC) Unspecified disorders of arteries and arterioles documented [facility]* Diagnosis Gastritis determined by endoscopy- Primary Chronic RUQ pain Abdominal pain, right upper quadrant Constipation, unspecified constipation type documented [facility]* Diagnosis Acute cystitis without hematuria- Primary Acute cystitis documented in this encounter [facility] for referral (narrative)* Outpatient Procedure (Routine) - Pending Review Specialty Diagnoses / Procedures Referred By Contac t Referred To Contact [facility] [place] Diagnoses Stenosis of right carotid artery Procedures US CAROTID ARTERIES [facility] DUPLEX SCAN EXTRACRANIAL ART COMPL BI STUDY Annemarie Westbrook DO [address] [place] [address] [facility] [place] [address] [place] [id number] Referral ID Status Reason Start Date Expiration Date Visits Requested Visits Authorized [id number] Pending Review Auto-Generat ed Referral 08/24/2021 08/24/2022 1 1 T [facility] for referral (narrative)* Diagnostic Procedure Only (Routine) - Pending Review Specialty Diagnoses / Procedures Referred By Contac t Referred To Contact [facility] Diagnoses Encounter for screening mammogram for breast cancer Procedures CAROLYN SCREENING SCREENING MAMMOGRAPHY BI 2-VIEW BREAST INC Jeancarlos Espinoza APRN.WATER MAINTENANCE SUPERVISOR [address] [place] [address] [facility] [address] [place] [id number] Referral ID Status Reason Start Date Expiration Date Visits Requested Visits Authorized [id number] Pending Review Auto-Generat ed Referral 06/15/2022 02/13/2023 1 1 T [facility] for referral (narrative)* Outpatient Procedure (Routine) - Pending Review Specialty Diagnoses / Procedures Referred By Contac t Referred [facility] Diagnoses Stenosis of right carotid artery Procedures US CAROTID ARTERIES HARRIET [facility] LAB DUPLEX SCAN EXTRACRANIAL ART COMPL BI STUDY Annemarie Westbrook DO [address] [place] [address] [facility] [place] [address] [place] [address] Referral ID Status Reason Start Date Expiration Date Visits Requested Visits Authorized [id number] Pending Review Auto-Generat ed Referral 2 03/29/2023 1 1 [facility] for referral (narrative)* Outpatient Procedure (Routine) - Pending Review Specialty Diagnoses / Procedures Referred By Contac t Referred To Contact [facility] Diagnoses Constipation, unspecified constipation type Screening for colon cancer Procedures COLONOSCOPY SCREENING COLONOSCOPY FLX DX W/COLLJ SPEC WHEN MILLER Ryan, Sarah Waldrop MD [address] [place] [address] [facility] [place] [address] [place] [id number] Referral ID Status Reason Start Date Expiration Date Visits Requested Visits Authorized [id number] Pending Review Auto-Generat ed Referral 11/08/2022 11/09/2023 1 1 [facility] for referral (narrative)* Diagnostic Procedure Only (Routine) - Pending Review Specialty Diagnoses / Procedures Referred By Contac t Referred To Contact [facility] Diagnoses Breast cancer screening by mammogram Procedures CAROLYN SCREENING W KIKE SCREENING DIGITAL BREAST TOMOSYNTHESIS BI SCREENING MAMMOGRAPHY BI 2-VIEW BREAST INC CAD Fiorella Hall MD [address] [place] [address] [facility] [address] [place] [address] Referral ID Status Reason Start Date Expiration Date Visits Requested Visits Authorized [id number] Pending Review Auto-Generat ed Referral 02/03/2023 03/04/2024 1 1 [facility] for referral (narrative)* Outpatient Procedure (Routine) - Closed Specialty Diagnoses / Procedures Referred By Contac t Referred To Contact [facility] [place] Diagnoses Constipation, unspecified constipation type Screening for colon cancer Procedures COLONOSCOPY SCREENING COLONOSCOPY FLX DX W/COLLJ SPEC WHEN Sarah Cox MD [address] [place] [address] [address] Referral ID Status Reason Start Date Expiration Date V isits Requested Visits Authorized [id number] Closed Auto-Generate d Referral 11/28/2022 02/26/2023 1 1 [facility] for visit Narrative* Outpatient Procedure (Routine) - Closed Specialty Diagnoses / Procedures Referred By Contac t Referred To Contact [facility] [place] Diagnoses Constipation, unspecified constipation type Screening for colon cancer Procedures COLONOSCOPY SCREENING COLONOSCOPY FLX DX W/COLLJ SPEC WHEN Sarah Cox MD [address] [place] [address] [address] Referral ID Status Reason Start Date Expiration Date V isits Requested Visits Authorized [id number] Closed Auto-Generate d Referral 11/28/2022 02/26/2023 [address] [facility] Summary Purpose Family History No Family History Records FoundNo Family History Records FoundNo Family History Records Found Advance Directives Documents on File Type Date Recorded Patient Collaborating Supervising Physician Expl anation Advance Directive(s) 02/27/2020 8:50 AM Advance Directive(s) 02/27/2020 8:47 AM Advance Directive(s) 02/12/2020 8:55 AM Documents on File Type Date Recorded Patient Collaborating Supervising Physician Expl anation Advance Directive(s) 02/27/2020 8:50 AM Advance Directive(s) 02/27/2020 8:47 AM Advance Directive(s) 02/12/2020 8:55 AM Documents on File Type Date Recorded Patient Collaborating Supervising Physician Expl anation Advance Directive(s) 02/27/2020 8:47 AM Documents on File Type Date Recorded Patient Collaborating Supervising Physician Expl anation Advance Directive(s) 02/27/2020 8:47 AM Reason for Referral Specialty Diagnoses / Procedures Referred By Richy san Referred To Contact [facility] Surgery Diagnoses Constipation, unspecified constipation type Procedures CONSULT TO GENERAL SURGERY OFFICE/OUTPATIENT [facility] [place] 60-74 MINUTES Coco Ocampo APRN.REVERBERATORY FURNACE OPERATOR [address] [place] [address] Referral ID Status Reason Start Date Expiration Date Visits Requested Visits Authorized [id number] Authorized PCP Requested Referral 11/07/2022 11/07/2023 1 1 Medications Administered Section Inactive Administered Medications - up to 3 most recent administrations Medication Order MAR Action Action Date Dose Rate Site diphenhydrAMINE 12.5-50 mg injection (BENADRYL) 12.5-50 mg, INTRAVENOUS, DIRECTED, Starting on Mon11/28/22 at 1300, Until Mon11/28/22 at 1659, DOSING DIRECTED BY PHYSICIAN FOR PROCEDURAL SEDATION ONLY, Intraprocedure Given 11/28/2022 12:48 PM EDT 50 mg fentaNYL 50 mcg/mL 25-100 mcg injection (SUBLIMAZE) 25-100 mcg, INTRAVENOUS, DIRECTED, Starting on Mon11/28/22 at 1300, Until Mon11/28/22 at 1659, DOSING DIRECTED BY PHYSICIAN FOR PROCEDURAL SEDATION ONLY, Intraprocedure Given 11/28/2022 12:55 PM EDT 50 mcg Given 11/28/2022 12:46 PM EDT 50 mcg lactated ringers iv infusion 75 mL/hr, INTRAVENOUS, CONTINUOUS, Starting on Mon11/28/22 at 1230, Until Mon11/28/22 at 1312, Preprocedure New Bag/Syringe/Bottle 11/28/2022 12:25 PM EDT 75 mL/hr 75 mL/hr Hand, Right midazolam 1-5 mg injection (VERSED) 1-5 mg, INTRAVENOUS, DIRECTED, Starting on Mon11/28/22 at 1300, Until Mon11/28/22 at 1659, DOSING DIRECTED BY PHYSICIAN FOR PROCEDURAL SEDATION ONLY, Intraprocedure Given 11/28/2022 12:53 PM EDT 2 mg Given 11/28/2022 12:50 PM EDT 2 mg Given 11/28/2022 12:46 PM EDT 3 mg Inactive Administered Medications - up to 3 most recent administrations Medication Order MAR Action Action Date Dose Rate Site zoledronic acid 5 mg PREMIX piggyback (RECLAST) 5 mg, INTRAVENOUS, at 400 mL/hr, Administer over 15 Minutes, ONCE, 1 dose, On [place] 03/30/23 at 1000, Hazardous Potential Reproductive Risk Drug: Use appropriate PPE. New Bag/Syringe/Bottle 03/30/2023 10:12 AM EST 5 mg 400 mL/hr Additional Source Comments INFORMATION SOURCE (unrecogn ized section and content) DATE CREATED AUTHOR 08/22/2020 [facility] DATE CREATED AUTHOR AUTHOR'S ORGANIZ ATION 07/28/2022 [facility] nt DATE CREATED AUTHOR AUTHOR'S ORGANIZ ATION 02/09/2024 [facility] Source Comments (unrecognize d section and content) In the event this informatio n is protected by the Federal Confidentiality of Alcohol and Drug Abuse Patient Records regulations: The Federal rules restrict any use of the information to criminally investigate or prosecute any alcohol or drug abuse patient.[facility] the event this information is protected by the Federal Confidentiality of Alcohol and Drug Abuse Patient Records regulations: The Federal rules restrict any use of the information to criminally investigate or prosecute any alcohol or drug abuse patient.[facility] HospitalIn the event this information is protected by the Federal Confidentiality of Alcohol and Drug Abuse Patient Records regulations: The Federal rules restrict any use of the information to criminally investigate or prosecute any alcohol or drug abuse patient.[facility] HospitalIn the event this information is protected by the Federal Confidentiality of Alcohol and Drug Abuse Patient Records regulations: The Federal rules restrict any use of the information to criminally investigate or prosecute any alcohol or drug abuse patient.[facility] HospitalIn the event this information is protected by the Federal Confidentiality of Alcohol and Drug Abuse Patient Records regulations: The Federal rules restrict any use of the information to criminally investigate or prosecute any alcohol or drug abuse patient.[facility] HospitalIn the event this information is protected by the Federal Confidentiality of Alcohol and Drug Abuse Patient Records regulations: The Federal rules restrict any use of the information to criminally investigate or prosecute any alcohol or drug abuse patient.[facility] HospitalIn the event this information is protected by the Federal Confidentiality of Alcohol and Drug Abuse Patient Records regulations: The Federal rules restrict any use of the information to criminally investigate or prosecute any alcohol or drug abuse patient.[facility] HospitalIn the event this information is protected by the Federal Confidentiality of Alcohol and Drug Abuse Patient Records regulations: The Federal rules restrict any use of the information to criminally investigate or prosecute any alcohol or drug abuse patient.[facility] HospitalIn the event this information is protected by the Federal Confidentiality of Alcohol and Drug Abuse Patient Records regulations: The Federal rules restrict any use of the information to criminally investigate or prosecute any alcohol or drug abuse patient.[facility] HospitalIn the event this information is protected by the Federal Confidentiality of Alcohol and Drug Abuse Patient Records regulations: The Federal rules restrict any use of the information to criminally investigate or prosecute any alcohol or drug abuse patient.[facility] HospitalIn the event this information is protected by the Federal Confidentiality of Alcohol and Drug Abuse Patient Records regulations: The Federal rules restrict any use of the information to criminally investigate or prosecute any alcohol or drug abuse patient.[facility] HospitalIn the event this information is protected by the Federal Confidentiality of Alcohol and Drug Abuse Patient Records regulations: The Federal rules restrict any use of the information to criminally investigate or prosecute any alcohol or drug abuse patient.[facility] HospitalIn the event this information is protected by the Federal Confidentiality of Alcohol and Drug Abuse Patient Records regulations: The Federal rules restrict any use of the information to criminally investigate or prosecute any alcohol or drug abuse patient.[facility] HospitalIn the event this information is protected by the Federal Confidentiality of Alcohol and Drug Abuse Patient Records regulations: The Federal rules restrict any use of the information to criminally investigate or prosecute any alcohol or drug abuse patient.[facility] HospitalIn the event this information is protected by the Federal Confidentiality of Alcohol and Drug Abuse Patient Records regulations: The Federal rules restrict any use of the information to criminally investigate or prosecute any alcohol or drug abuse patient.[facility] HospitalIn the event this information is protected by the Federal Confidentiality of Alcohol and Drug Abuse Patient Records regulations: The Federal rules restrict any use of the information to criminally investigate or prosecute any alcohol or drug abuse patient.[facility] HospitalIn the event this information is protected by the Federal Confidentiality of Alcohol and Drug Abuse Patient Records regulations: The Federal rules restrict any use of the information to criminally investigate or prosecute any alcohol or drug abuse patient.[facility] HospitalIn the event this information is protected by the Federal Confidentiality of Alcohol and Drug Abuse Patient Records regulations: The Federal rules restrict any use of the information to criminally investigate or prosecute any alcohol or drug abuse patient.[facility] HospitalIn the event this information is protected by the Federal Confidentiality of Alcohol and Drug Abuse Patient Records regulations: The Federal rules restrict any use of the information to criminally investigate or prosecute any alcohol or drug abuse patient.[facility] HospitalIn the event this information is protected by the Federal Confidentiality of Alcohol and Drug Abuse Patient Records regulations: The Federal rules restrict any use of the information to criminally investigate or prosecute any alcohol or drug abuse patient.[facility] HospitalIn the event this information is protected by the Federal Confidentiality of Alcohol and Drug Abuse Patient Records regulations: The Federal rules restrict any use of the information to criminally investigate or prosecute any alcohol or drug abuse patient.[facility] HospitalIn the event this information is protected by the Federal Confidentiality of Alcohol and Drug Abuse Patient Records regulations: The Federal rules restrict any use of the information to criminally investigate or prosecute any alcohol or drug abuse patient.[facility] HospitalIn the event this information is protected by the Federal Confidentiality of Alcohol and Drug Abuse Patient Records regulations: The Federal rules restrict any use of the information to criminally investigate or prosecute any alcohol or drug abuse patient.[facility] HospitalIn the event this information is protected by the Federal Confidentiality of Alcohol and Drug Abuse Patient Records regulations: The Federal rules restrict any use of the information to criminally investigate or prosecute any alcohol or drug abuse patient.[facility] HospitalIn the event this information is protected by the Federal Confidentiality of Alcohol and Drug Abuse Patient Records regulations: The Federal rules restrict any use of the information to criminally investigate or prosecute any alcohol or drug abuse patient.[facility] HospitalIn the event this information is protected by the Federal Confidentiality of Alcohol and Drug Abuse Patient Records regulations: The Federal rules restrict any use of the information to criminally investigate or prosecute any alcohol or drug abuse patient.[facility] Reason for Visit (unrecogniz ed section and content) Reason Comments Sclerotherapy Tx Specialty Diagnoses / Procedures Referred By Richy san Referred To Contact Peripheral Vascular / VASCULAR SURGERY Diagnoses Varicose veins of bilateral lower extremities with pain U/S GUIDED SCLERO pending insurcance auth, if not apporval pt will pay 200 out of pocket Procedures INJECTION SCLEROSANT MULTIPLE INCMPTNT VEINS SCLEROTHERAPY Annemarie Westbrook, DO [address] [place] [address] Annemarie Westbrook, DO [address] [place] [address] Referral ID Status Reason Start Date Expiration Date Visits Re quested Visits Authorized [id number] Closed 07/29/2022 05/14/2023 1 1 Reason Comments Established Patient Reason Comments F/U 6 months Reason Onset Date Comments Population Health Navigation Outreach 11/24/2021 [place] [facility] Reason Comments Patient Question Orders Reason Comments Yearly Exam Reason Onset Date Comments Covid19 Concern Immunizations 03/04/2022 Flu vaccination Reason Comments Patient Question Reason Comments Covid positive on home test Reason Comments Diarrhea cramping type pain t hat is making her nauseatedTaking Miralax 1 capful every night and colace 2 capsules as neededHas treated pain with bentyl States she does drink quite bit of water. Reason Comments Consult Constipation, colono scopy consult Specialty Diagnoses / Procedures Referred By Richy san Referred To Contact General Surgery Diagnoses Constipation, unspecified constipation type Procedures CONSULT TO GENERAL SURGERY OFFICE/OUTPATIENT SELECT AT [place] 60-74 MINUTES Coco Ocampo APRN.REVERBERATORY FURNACE OPERATOR [address] [place] [address] Referral ID Status Reason Start Date Expiration Date V isits Requested Visits Authorized [id number] Closed PCP Requested Referral 11/07/2022 11/07/2023 1 1 Reason Onset Date Comments Medicare Wellness Exam Radiology Mammogram 02/03/[address] [facility] Reason Comments Results Reason Comments RECLAST START Reason Comments Non-Chemotherapy Treatment Specialty Diagnoses / Procedures Referred By Richy san Referred To Contact Diagnoses Sciatica, unspecified laterality Spinal stenosis, lumbar region, without neurogenic claudication Age-related osteoporosis without current pathological fracture Procedures INJECTION, ZOLEDRONIC ACID, 1 MG Coco Ocampo APRN.REVERBERATORY FURNACE OPERATOR [address] [place] [address] [facility] [address] [place] [address] Referral ID Status Reason Start Date Expiration Date V isits Requested Visits Authorized [id number] Authorized 03/15/2023 03/16/2024 1 1 Reason Comments 6 mo follow up Reason Comments Patient Update Reason Onset Date Comments Population Health Navigation Outreach 12/15/2023 [facility] Reason Comments Same Day Appointment GI issues x 4 weeks Reason Comments UTI symptoms of fatigue started last week but this am she wipe and saw some pink on the toilet paper and floating in toilet.Does complain of burning Has been having mid back pain Reason Comments Appointment Care Teams (unrecognized sec tion and content) Administrator Health Care Facility Relationship Specialty [place] [address] [place] [address] [phone] PCP - General 03/23/02 Administrator [facility] Relationship Specialty Start Date End Date Fiorella Hall MD [address] [place] [address] [phone] PCP - General 03/23/02 Administrator [facility] Relationship Specialty Start Date End Date Fiorella Hall MD [address] [place] [address] [phone] PCP - General 03/23/02 Administrator [facility] Relationship Specialty Start Date End Date Fiorella Hall MD [address] [place] [id number] PCP - General 03/23/02 Administrator [facility] Relationship Specialty Start Date End Date Fiorella Hall MD [address] [place] [address] PCP - General 03/23/02 Administrator Health Care Facility Relationship Specialty Start Date End Date Fiorella Hall MD [address] [place] [address], [place] [address] PCP - General 03/23/02 Administrator [facility] Care Facility Relationship Specialty Start Date End Date Fiorella Hall MD [address] [place] [address], [place] [address] PCP - General 03/23/02 Administrator Health [facility] Facility Relationship Specialty Start Date End Date Fiorella Hall MD [address] [place] [address], [place] [address] PCP - General 03/23/02 Administrator [facility] Care Facility Relationship Specialty Start Date End Date Fiorella Hall MD [facility] [place] [address] PCP - General 03/23/02 Administrator Health Care Facility Relationship Specialty Start Date End Date Fiorella Hall MD [address] [place] [address], [place] [address] PCP - General 03/23/02 Administrator [facility] Facility Relationship Specialty Start Date End Date Fiorella Hall MD [address] [place] [address] PCP - General 03/23/02 Administrator Health Care Facility Relationship Specialty Start Date End Date Fiorella Hall MD [facility] [place] [address] PCP - General 03/23/02 Administrator Health Care Facility Relationship Specialty Start Date End Date Fiorella Hall MD [address] [place] [address], [place] [address] PCP - General 03/23/02 Administrator Health Care Facility Relationship Specialty Start Date End Date Fiorella Hall MD [address] [place] [address] PCP - General 03/23/02 Administrator [facility] Facility Relationship Specialty Start Date End Date Fiorella Hall MD [address] [place] [address] PCP - General 03/23/02 Administrator [facility] Relationship Specialty Start Date End Date Fiorella Hall MD [address] [place] [address] PCP - General 03/23/02 Administrator [facility] Relationship Specialty Start Date End Date Fiorella Hall MD [address] [place] [address] PCP - General 03/23/02 Administrator [facility] Care Facility Relationship Specialty Start Date End Date Fiorella Hall MD [address] [place] [address] PCP - General 03/23/02 Administrator [facility] Care Facility Relationship Specialty Start Date End Date Fiorella Hall MD [address] [place] [address] PCP - General 03/23/02 Administrator [facility] Care Facility Relationship Specialty Start Date End Date Fiorella Hall MD [address] [place] [address] PCP - General 03/23/02 Administrator Health Care Facility Relationship Specialty Start Date End Date Fiorella Hall MD [address] [place] [address] PCP - General 03/23/02 Administrator Health Care Facility Relationship Specialty Start Date End Date Fiorella Hall MD [address] [place] [address] PCP - General 03/23/02 Administrator Health Care Facility Relationship Specialty Start Date End Date Fiorella Hall MD [address] [place] [address] PCP - General 03/23/02 FOR RECORDS PERTAINING TO PATIENTS WHO ARE OR HAVE BEEN ENROLLED IN A CHEMICAL DEPENDENCY/SUBSTANCEABUSE PROGRAM, SOME INFORMATION MAY BE OMITTED. This clinical summary was aggregated from multiple sources. Caution should be exercised in using it in the provision of clinical care. This summary normalizes information from multiple sources, and as a consequence, information in this document may materially change the coding, format and clinical context of patient data. In addition, data may be omitted in some cases. CLINICAL DECISIONS SHOULD BE BASED ON THE PRIMARY CLINICAL RECORDS. [facility] [employer] provides no warranty or guarantee of the accuracy or completeness of information in this document.
--- NOTE | 2024-03-08 08:01 | PCM.CR.HP2 ---
CR - History & Physical General Arrival date:: 03/08/24 Arrival time:: 08:01 Date of Referral:: 03/04/24 Date of CR Evaluation:: 03/08/24 Referring Physician: Dr. Valdivia Primary Diagnosis: PCI with stent History of Present Cardiac Event Onset Date PTCA or coronary stenting:: Yes Vessel: Mid RCA 03/04/24 Medications Ambulatory Orders ?Medication ?Instructions ?Recorded trazodone 100 mg tablet 100 mg PO QHS insomnia 08/17/20 dicyclomine 10 mg capsule 10 mg PO 4X/DAY PRN abdominal pain 03/28/22 lorazepam 0.5 mg tablet 0.5 mg PO QHS PRN sleep 03/28/22 omeprazole 40 mg capsule,delayed 40 mg PO BID gut 03/28/22 release bupropion HCl 300 mg 24 hr tablet, 300 mg PO DAILY anxiety 04/11/22 extended release cholecalciferol (vitamin D3) 50 4,000 unit PO DAILY supplement 04/11/22 mcg (2,000 unit) tablet biotin 10,000 mcg capsule 5,000 mcg PO DAILY hair 11/06/23 cyanocobalamin (B12)-cobamamide 1 rob sublingual DAILY suppliment 11/06/23 5,000 mcg-100 mcg sublingual lozenge (B12) levothyroxine 75 mcg tablet 75 mcg PO DAILY thyroid 03/02/24 meloxicam 15 mg tablet 15 mg PO DAILY inflimmation 03/02/24 aspirin 81 mg tablet,delayed 81 mg PO BREAKFAST #0 tabs 03/05/24 release carvedilol 3.125 mg tablet 3.125 mg PO BID #60 tabs 03/05/24 hydrochlorothiazide 25 mg tablet 25 mg PO DAILY #30 tabs 03/05/24 losartan 50 mg tablet 50 mg PO DAILY #30 tabs 03/05/24 pravastatin 40 mg tablet 40 mg PO QHS #30 tabs 03/05/24 ticagrelor 90 mg tablet (Brilinta) 90 mg PO BID #60 tabs 03/05/24 Allergies Allergies sulfabenzamide Allergy (Unknown, Verified 03/02/24 09:32) red mouth nizatidine (From Axid) Allergy (Verified 03/02/24 09:32) Hives Sulfa (Sulfonamide Antibiotics) Allergy (Verified 03/02/24 09:32) Rash, oral redness atorvastatin Adverse Reaction (Intermediate, Verified 03/02/24 09:32) Other insomnia,headache,nausea duloxetine (From Cymbalta) Adverse Reaction (Intermediate, Verified 03/02/24 09:32) Other insomnia lisinopril Adverse Reaction (Intermediate, Verified 03/02/24 09:32) Other cough with vomiting sibutramine (From Meridia) Adverse Reaction (Intermediate, Verified 03/02/24 09:32) Rash losartan Adverse Reaction (Mild, Verified 03/02/24 09:32) Other cough Sleep Disorder Evaluation Hx of Sleep Apnea: No Do you snore loudly (louder than talking or can be heard through closed doors)?: No Do you often feel tired/ fatigued/ sleepy during daytime?: No Has anyone observed you stop breathing during sleep?: No History of Hypertension (for STOP score): Yes STOP Results: Negative Advanced Directives Advanced Directives Power of Human Resources Project Coordinator: Yes Living Will: Yes Advance Directives Information Provided: Yes Advance Directives on File: Yes DNR Order?:: No Past Medical History Covid-19 Screening Physicial Symptoms Other Clinical Concerns Exposure Risk Pertinent Comorbidities 65 years or older:: Yes Has a serious heart condition:: Yes Past Medical Illness Past Medical History (Updated 03/04/24 @ 12:[address] Alexandrea Valdivia MD) Post-menopausal Z78.0 Alcohol use Z78.9 ON WEEKENDS Thyroid disease E07.9 Back pain M54.9 LUMBAR INJECTIONS Former smoker Z87.891 QUIT 1987 Leg cramps R25.2 History of echocardiogram Z92.89 04/2022 [facility] Cardiology follow-up encounter Z09 03/2023 [facility] Carotid artery disease I77.9 COVID-19 (~03/06/22) U07.1 Obesity E66.9 Psychophysiologic insomnia F51.04 Anxiety F41.9 Essential (primary) hypertension I10 Trigger finger, left ring finger M65.342 Vitamin D deficiency E55.9 Esophageal reflux K21.9 Hyperlipidemia E78.5 IBS (irritable bowel syndrome) K58.9 Diffuse cystic mastopathy N60.19 Generalized osteoarthritis M15.9 Diarrhea due to COVID-19 U07.1, A08.39 Hypothyroidism (acquired) E03.9 Strain of right forearm S56.911A Strain of right wrist S66.911A Strain of right hand S66.911A Spinal stenosis of lumbosacral region M48.07 Depression F32.9 H/O radioactive iodine thyroid ablation Z92.3 Past Surgical History Past Surgical History (Updated 03/04/24 @ 15:47 by Jenelle Spencer) Stented coronary artery (03/04/24) Z95.5 [facility] EZEKIEL 3.0 X 22 to mid RCA 03/04/2024 History of radiofrequency ablation (RFA) of nerve of lumbar spine Z98.890 History of selective injection of anesthetic agent around lumbar nerve root Z98.890 History of lumbar surgery (~08/2020) Z98.890 History of esophagogastroduodenoscopy (EGD) (~02/27/20) Z98.890 History of colonoscopy Z98.890 History of tonsillectomy and adenoidectomy Z90.89 Hx of cataract removal with insertion of prosthetic lens (~2015) Z98.49, Z96.1 bilateral H/O dilation and curettage Z98.890 Family History Summary Family History Mother Arthritis Myocardial infarction Father Diabetes Heart disease Sister Brain bleed Social History Smoking History Smoking Status: Former smoker Years Smokin Packs Smoked per Day: 0.25 (stopped in 1986) Hx Tobacco Use: Yes Alcohol Use Alcohol Usage: Yes (wine socially) Substance Abuse Hx Substance Use: No Occupation Occupation (List type of work in comments):: Retired Hobbies, Recreation, Social Activities Hobbies: Reading and Other (riding bike, walking) Recreational Activities: I am able to engage in most, but not all activities Social Environment Status Marital Status: Current Living Arrangements Living Environment:: Spouse Children Do any of your children live nearby?: No Safety Do you feel safe in your surroundings?: Yes Assistance Do you need any assistance at home?: no Risk Factor Assessment Chief Complaint Chief Complaint: PCI with stent Vital Signs Pulse Ox: 100 Blood Pressure: 140/68 Pulse Pulse Rate: 71 Pulse Rhythm: Regular Hypertension How long have you been treated?: 15 years Blood Pressure Sitting - Right Arm: 140/68 Stress Stress: Long-standing Obesity Height: 5 ft 1 in Weight:: 156 lb Weight in Pounds: 156.0 lbs Body Mass Index (BMI): 29.5 Nutritional Referral for Obesity: No Physical Inactivity Physical Inactivity: Reg Exercise 30 min/day Risk Stratification Risk Guidelines: Moderate Risk: Risk Factor for Smoking, Risk Factor for Diabetes, Risk Factor for Obesity and Risk Factor for Sedentary Lifestyle and Highest Risk: Risk Factor for Dyslipidemia, Risk Factor for Hypertension and Risk Factor for Depression For Smoking Smoking Risk Guidelines For Dyslipidemia Dyslipidemia Risk Guidelines For Diabetes Mellitus Diabetes Risk Guidelines For Obesity/Overweight Obesity/Overweight Risk Guidelines For Hypertension Hypertension Risk Guidelines For Sedentary Lifestyle Sedentary Lifestyle Risk Guidelines For Depression Depression Risk Guidelines Family History Family History Mother Arthritis Myocardial infarction Father Diabetes Heart disease Sister Brain bleed Motivation Motivation to Participate On a scale of 1 to 10, how prepared are you to commit to attending program?: 10 What do you see as barriers to successfully being able to complete the program?: nothing What do you see as the benefits of succesfully completing the program? In other words, what do you hope to get out of participating in the program?: get over fear, weight loss, back in shape Are there issues you are dealing with that will interfere with completing the program?: no Do you have a spouse or signficant other, family or friends who will help support you to complete the program?: yes
--- NOTE | 2024-03-08 08:06 | CR.ITP_ITS ---
Diagnosis General Information Admitting Diagnosis: PCI with stent Personal Learning Style:: Audio/Visual Barriers to Learning: No Barriers Stage of change r/t lifestyle modifications:: Contemplation Gave educational material for:: Treating Heart Disease, How The Heart Works, What it means to have Heart Disease, How Coronary Artery Disease is Diagnosed, Heart Procedures, What Heart Medications Do, Risk Factors & Modifications, Living an Active Life, Nutrition, Emotions & Heart Disease, Stress Management & Relaxation and Sleep Disorders & Heart Disease Education/Goals Cardiac Rehabilitation Goals Personal Goals: Initial Assessment: Improve management of stress and emotions, Get back to work, or to resume activities faster and Improve knowledge of cardiac disease Scale for measuring improvement of personal goals Diagnosis & Disease Process Outcomes/Goals: Pt IDs own risk factors & lifestyle modifications by Session 10, Verbalizes symptoms of angina & response by session 3., Pt independently manages and Other Additional Outcomes/Goals: Plan/Interventions: Assist Pt to ID & engage in lifestyle modification to reduce CVD risk, Instruct on individual risk factors, Review symptoms of angina & emergency actions, Review secondary diagnosis & identify educational needs. and Other see comment 30 day Reassessments:: Not Met 30 day Reassessments:: Not Met 30 day Reassessments:: Not Met 30 day Reassessments:: Not Met Final Reassessments:: Not Met Safety Referral to Physical Therapy: No Referral to [facility] Case Management: No Fall Risk Assessed:: Yes Assistive Devices:: None Exercise - Initial Assessment Visit Date of Eval: 03/08/24 (initial eval ) Mets: Pre-: >3 METS for 30 minutes by discharge, >5 METS for 30 minutes by discharge, >7 METS for 30 minutes by discharge and Unable to meet goal due to: (see comment below) Physician Prescribed Exercise Modalities: Treadmill, Rower, Schwinn Airdyne AD-7, SciFit Stepper, SciFit Pro- II Ergometer and SciFit Lateral [place] Frequency: 3x/week for 12 weeks [36 sessions] Intensity: 60-80% of age predicted maximum heart rate reserve Duration: 30 - 45 minutes Current METSs:: 3 Target Heart Rate:: 88-110 Resting Blood Pressure: 140/68 EKG Type: SR with occas PVC, nonspecific ST abnormality Outcomes & Goals Goals:: Verbalizes understanding of THR, RPE & goal METS by session 6, Documents in home exercise log/reports 30 min aerobic 5 day/wk by DC, Demonstrates accurate pulse taking by DC and Other additional outcome/goals: see below Intervention & Plan Exercise Program Goals: Instruct on personal THR & RPE, Instruct on MET level & personal MET goal, Show patient to take own pulse /validate performance until accurate, Instruct on home exercise and Other additional plan/int Physical Activity Home Exercise Physical Activity - Home Exercise: Safe Exercise, Warm-up, Self-monitoring, Cool-Down, Home Exercise > 30 min Daily and Sitting Time <3 hours/daily Outcomes & Goals Outcomes/Goals: Demonstrates correct Warm-up/exercise Cool-Down (S3) if = 2.5 METs, Verbalizes symptoms of exercise intolerance by Session 3 (S3), Demonstrate safe equipment use (S3) & follows exercise prescrition (6) and Other: See below Intervention & Plan Plan/Intervention: Instruct warm-up & cool-down if exercising at > 2 METs, Instruct on symptoms of exercise intolerance & actions to take, Instruct & monitor on saf, Assess intial functional capacity & safety risk and Other See below Nutrition - Initial Assessment Program Goals Nutrition Program Goals Patient has diagnosis of Hyperlipidemia (ICD E78)?: Yes Visit Date of Eval: 03/08/24 (initial eval ) Cholesterol/Lipids (Other Core Measures) Determine presence & major risk factors that modify LDL goal: Cigarette smoking, Hypertension or hypertensive medication, Low HDL cholesterol <40 mg/dL*, Family history of premature CHD in Male < 55 years: female <65 yearsFa and Age men > 45 years; women >/= 55 years Outcomes/Goals: Pt IDs own risk factors & lifestyle modifications by Session 10, Verbalizes symptoms of angina & response by session 3., Pt independently manages and Other Additional Outcomes/Goals: Intervention/Plan: Advocate for lipid panel cholesterol medication if applicable, Instruct on personal lipid levels & lipid goals/NCEP guidelines, Instruct on cholesterol and Other additional plan/int Referral to dietitian:: Yes Diabetes (Other Core Measures) Diabetes Type: Not Applicable Weight Mgt (Other Care) Height: 5 ft 1 in Weight:: 156 lb BMI: 29.5 Diagnosis Overweight/Obesity BMI> 30% ICD-10 E66: No Diagnosis High BMI/Morbid Obesity BMI> 35% ICD-10 Z68: No Outcomes/Goals: Pt sets, maintains & shows weight loss goal & trend during rehab and Other additional outcomes/goals Intervention/Plan: Instruct on ideal BMI & set weight loss goal w/patient, Assist pt to ID & incorporate diet changes for weight loss by S9, Refer to Structured Weight Loss program as appropriate, Encourage goal of using 250- 300dcal per session for weight loss and Other additional plan/interventions Healthy Eating Habits Will attend diet classes:: Yes Outcomes/Goals:: Consume diet rich in vegs,fruits,whole grain/high fiber,fish,lean meat, Limit sat/trans fats,cholesterol & added salts & sugars and Other additional outcome/goals: Intervention/Plan:: Assess current eating habits and Other Additional plan/interventions Education Gave educational materials for:: Signs & symptoms of hypoglycemia, Signs & symptoms of hyperglycemia, Relate diabetes to coronary artery disease and Healthy eating Core - Initial Assessment Visit Date of Eval: 03/08/24 (initial eval ) Medication Compliance Preventative Medication(s):: Aspirin, Ticagrelor/P2Y12 inhibitor, Statin/lipid, Beta allen and ARB (Angiotensi Rcap) H/O mental health issues: depression, anxiety, or addiction?: Yes Doesn?t believe in the benefits of treatment?: No Believes medications are unnecessary or harmful?: No Has a concern about medication side effects?: No Expresses concern over the cost of medications?: No Outcomes/Goals: Verbalizes medications,desired effect & common side effects @ DC, Pt self-reports following medication regimen, Keeps card in wallet w/medicat ions listed by DC and Other additional outcome/goals: Interventions/plans: Instruct on medication effects & side effects, Review medication list w/patient every two weeks, Instruct importance of taking meds as ordered & assist problem solving and Other additional Tobacco Use Tobacco Use: Non-smoker Years Smokin (smoked 5 cigarettes a day. Stopped in 1986.) Hypertension Hypertension Diagnosis:: Hypertension ICD-10 I10 Resting Blood Pressure:: 140/68 [place] [employer] Hypertension Guidelines Outcomes/Goals: Able to verbalize/achieve optimal blood pressure <130/80, Incorporates diet changes & exercise for blood pressure control by DC and Other additional outcomes/goals Interventions/plan: Instruct on optimal blood pressure, hypertension & medications, Instruct on effects of sodium, alcohol, stress, exercise &hypertension and Other additional plan/interventions Tobacco Cessation Referral Smoking Cessation Referral:: No Individual Education/Counseling:: No Education Schedule Given:: Yes Psychosocial - Initial Assess VIsit Date of Eval: 03/08/24 (initial eval ) History of previous Mental disease:: Yes History of Emotional Disorders: Anxious Target Goals Target Goals Psychosocial Test Tool Used:: Maria Elenahoda Alberto QOL Cardiac and PHQ-9 Questionnaire phq-9 Severity Referral to Behavioral Health PS - Interventions: Yes: Attend Stress Management Classes Outcomes/Goals: See list Psychosocial Outcomes/Goals:: ID's personal stressors & 2 strategies to manage stress by discharge and Other Additional outcome/goals: Intervention/Plan: See List Interventions/Plan:: Assess stressors,coping strategies & signs of derpression on admission, Instruct/assist pt to develop coping & personal stress Mgt strategies, Refer to Behavioral Health if appropriate, Refer to Physician if appropriate, Instruct patient to recognize signs & symptoms of depression, Instruct patient to recog and Other additional plan/intervention Comments:: Pt is currently on meds for anxiety and states that she is doing well NICCI-Q SV Test Statements CAD is a disease of the arteries in the heart: False Examples of risk factors for heart disease: True Angina is chest pain or discomfort: True The benefits of resistance training include: True Eating more meat and dairy products: False Anti-platelet medications such as aspirin are important: True The only effective way to manage stress: False An exercise warm-up slowly increases heart rate: I Don't Know Prepared, processed foods usually have high sodium: True Depression is common after a heart attack: True The statin medications lower cholesterol: True To control blood pressure, lower the amount of sodium: True If someone gets chest discomfort during walking: False Transfats are partially hydrogenated vegetable oils: True Sleep apnea that is not treated increases the risk: I Don't Know To control cholesterol, one should become a vegetarian: False Someone knows if he/she is exercising at the right level: True Diabetes cannot be prevented with exercise & health eating: False Stress is a large risk for heart attack: True A diet that can help lower blood pressure is rich in: True Total Score Total Correct Responses: 18 Self-Efficacy 6-Item Scale Initial Assessment: We would like to know how confident you are in doing certain activities. Please select your confidence level for: Fatigue Select Number: 8 Physical Discomfort or Pain Select Number: 9 Emotional Distress Select Number: 7 Other Symptoms or Health Problems Select Number: 10 Different Tasks and Activities Select Number: 10 Medication Select Number: 10 Total Score:: 9 Nutrition Survey Nutrition Survey Instructions Scoring Instructions Nutrition Survey Initial: Have you lost >10 lbs over the past 2 months without trying?: No Are you following a special diet at home for diabetes, low fat, or low salt?: No Are you interested in meeting with a dietitian for help understanding your diet?: Yes Do you eat less than 3 meals a day?: Yes Do you eat fatty meats (olivarez, sausage, ribs, etc), fried foods, desserts, large amounts of salad dressings, margarine, butter, or cheese most days?: No Do you have food allergies? [Enter types in comment field]: No Do you eat in restaurants more than 3 times a week?: No Do you season food with salt, seasoning salt, or garlic salt?: No Do you used canned, boxed, frozen meals, or soups, seasoning packets?: No Total Score:: 2 Exercise - 30-day Assessment Physician Prescribed Exercise Modalities: Treadmill, Rower, Schwinn Airdyne AD-7, SciFit Stepper, SciFit Pro- II Ergometer and SciFit Lateral Childbirth And Infant Care Teacher Exercise - 60-day Assessment Physician Prescribed Exercise Modalities: Treadmill, Rower, Schwinn Airdyne AD-7, SciFit Stepper, SciFit Pro- II Ergometer and SciFit Lateral [place] Exercise - 90-day Assessment Physician Prescribed Exercise Modalities: Treadmill, Rower, Schwinn Airdyne AD-7, SciFit Stepper, SciFit Pro- II Ergometer and SciFit Lateral Childbirth And Infant Care Teacher Exercise - Final/Discharge Physician Prescribed Exercise Modalities: Treadmill, Rower, Schwinn Airdyne AD-7, SciFit Stepper, SciFit Pro- II Ergometer and SciFit Lateral [place] Frequency: 3x/week for 12 weeks [36 sessions] Intensity: 60-80% of age predicted maximum heart rate reserve Current METSs:: 3 Target Heart Rate:: 88-110 Nutrition - 30-Day Assessment Weight Mgt (Other Care) Height: 5 ft 1 in Weight:: 156 lb BMI: 29.5 Nutrition - 60-Day Assessment Weight Mgt (Other Care) Height: 5 ft 1 in Weight:: 156 lb BMI: 29.5 Core - 30-Day Assessment Tobacco Use Years Smokin (smoked 5 cigarettes a day. Stopped in 1986.) Core - Final Assessment Hypertension Resting Blood Pressure:: 140/68 [place] [employer] Hypertension Guidelines Core - 60-Day Assessment Hypertension Resting Blood Pressure:: 140/68 [place] [employer] Hypertension Guidelines Psychosocial - 30-Day Assess Target Goals Target Goals Referral to Behavioral Health PS - Interventions: Yes: Attend Stress Management Classes Psychosocial - 60-Day Assess Target Goals Target Goals Referral to Behavioral Health PS - Interventions: Yes: Attend Stress Management Classes Psychosocial - 90-Day Assess Target Goals Target Goals Referral to Behavioral Health PS - Interventions: Yes: Attend Stress Management Classes Psychosocial - Final Assessmen Target Goals Target Goals Referral to Behavioral Health PS - Interventions: Yes: Attend Stress Management Classes Nutrition - 90-Day Assessment Weight Mgt (Other Care) Height: 5 ft 1 in Weight:: 156 lb BMI: 29.5 Nutrition - Final Assessment Program Goals Patient has diagnosis of Hyperlipidemia (ICD E78)?: Yes Weight Mgt (Other Care) Height: 5 ft 1 in Weight:: 156 lb BMI: 29.5
[2024-03-08 08:22] VITALS: BP 140/68; PULSE 71; O2SAT 100
[2024-03-08 09:04] VITALS: BP 140/68; BMI 29.5
[2024-03-08 09:05] VITALS: BMI 29.5
== END | disposition home or self-care (01) ==
PROVIDERS: PCP Internal Medicine; Referring Provider Internal Medicine Cardiovascular Disease; Visit Provider Internal Medicine Cardiovascular Disease
DX: I25.10 Atherosclerotic heart disease of native coronary artery without angina pectoris (principal); I77.9 Disorder of arteries and arterioles, unspecified; I10 Essential (primary) hypertension; E78.5 Hyperlipidemia, unspecified; Z95.5 Presence of coronary angioplasty implant and graft

== ENCOUNTER 2024-03-13 09:15 | Outpatient (RCR) | payer MEDICARE, SELFPAY ==
[2024-03-08 09:04] VITALS: BMI 29.5
== END 2024-03-14 23:59 ==
LOC: CR 09:15
PROVIDERS: PCP Internal Medicine; Referring Provider Internal Medicine Cardiovascular Disease; Visit Provider Internal Medicine Cardiovascular Disease
DX: I25.10 Atherosclerotic heart disease of native coronary artery without angina pectoris (principal); I77.9 Disorder of arteries and arterioles, unspecified; I10 Essential (primary) hypertension; E78.5 Hyperlipidemia, unspecified; Z95.5 Presence of coronary angioplasty implant and graft
CPT/HCPCS: 93798

== ENCOUNTER 2024-04-10 09:15 | Outpatient (RCR) | payer MEDICARE, SELFPAY ==
[2024-03-08 09:04] VITALS: BMI 29.5
--- NOTE | 2024-04-08 08:13 | CR.ITP_ITS ---
Exercise - Initial Assessment Visit Session #:: 9 Physician Prescribed Exercise Modalities: Treadmill, Schwinn Airdyne AD-7 and SciFit Stepper Nutrition - Initial Assessment Weight Mgt (Other Care) Height: 5 ft 1 in Weight:: 153 lb BMI: 28.9 Core - Initial Assessment Tobacco Use Years Smokin (Pt stopped in 1986. Pt smoked 5 cigarettes a day.) Psychosocial - Initial Assess Target Goals Target Goals Referral to Behavioral Health PS - Interventions: Yes: Attend Stress Management Classes Self-Efficacy 6-Item Scale 30-Day Re-eval Assessment: We would like to know how confident you are in doing certain activities. Please select your confidence level for: Fatigue Select Number: 8 Physical Discomfort or Pain Select Number: 9 Emotional Distress Select Number: 7 Other Symptoms or Health Problems Select Number: 10 Different Tasks and Activities Select Number: 10 Medication Select Number: 10 Total Score:: 9 Nutrition Survey Nutrition Survey Instructions Scoring Instructions Exercise - 30-day Assessment Visit Date of Eval: 04/08/24 Session #:: 9 Physician Prescribed Exercise Modalities: Treadmill, Schwinn Airdyne AD-7 and SciFit Stepper Frequency: 3x/week for 12 weeks [36 sessions] Intensity: 60-80% of age predicted maximum heart rate reserve Duration: 30 - 45 minutes Current METSs:: 5.7 Target Heart Rate:: 88-110 Current RPE:: 12.5-14 Maximum Excercise HR:: 118 Resting Blood Pressure: 130/58 Maximum Exercise Blood Pressure: 152/60 EKG Type: NSR to ST with rare PVC's, PAC's Outcomes & Goals Goals:: Verbalizes understanding of THR, RPE & goal METS by session 6, Documents in home exercise log/reports 30 min aerobic 5 day/wk by DC, Demonstrates accurate pulse taking by DC and Other additional outcome/goals: see below Intervention & Plan Exercise Program Goals: Instruct on personal THR & RPE, Instruct on MET level & personal MET goal, Show patient to take own pulse /validate performance until accurate, Instruct on home exercise and Other additional plan/int 30-day Reassessments 30 day Reassessments:: Progressing Reassessment Notes & Comments:: RPE explained to pt. Pt is able to demonstrate understanding Physical Activity Home Exercise Physical Activity - Home Exercise: Safe Exercise, Warm-up, Self-monitoring, Cool-Down, Home Exercise > 30 min Daily and Sitting Time <3 hours/daily Outcomes & Goals Outcomes/Goals: Demonstrates correct Warm-up/exercise Cool-Down (S3) if = 2.5 METs, Verbalizes symptoms of exercise intolerance by Session 3 (S3), Demonstrate safe equipment use (S3) & follows exercise prescrition (6) and Other: See below Intervention & Plan Plan/Intervention: Instruct warm-up & cool-down if exercising at > 2 METs, Instruct on symptoms of exercise intolerance & actions to take, Instruct & monitor on saf, Assess intial functional capacity & safety risk and Other See below 30-day Reassessments 30 day Reassessments:: Progressing Reassessment Notes & Comments:: Slow warm up explained and demonstrated to pt. Pt is able to return demonstration. Exercise - 60-day Assessment Physician Prescribed Exercise Modalities: Treadmill, Schwinn Airdyne AD-7 and SciFit Stepper Exercise - 90-day Assessment Physician Prescribed Exercise Modalities: Treadmill, Schwinn Airdyne AD-7 and SciFit Stepper Exercise - Final/Discharge Physician Prescribed Exercise Modalities: Treadmill, Schwinn Airdyne AD-7 and SciFit Stepper Nutrition - 30-Day Assessment Program Goals Nutrition Program Goals Patient has diagnosis of Hyperlipidemia (ICD E78)?: Yes Visit Date of Eval: 04/08/24 Session #:: 9 Cholesterol/Lipids (Other Core Measures) Determine presence & major risk factors that modify LDL goal: Cigarette smoking, Hypertension or hypertensive medication, Low HDL cholesterol <40 mg/dL*, Family history of premature CHD in Male < 55 years: female <65 yearsFa and Age men > 45 years; women >/= 55 years Outcomes/Goals: Pt IDs own risk factors & lifestyle modifications by Session 10, Verbalizes symptoms of angina & response by session 3., Pt independently manages and Other Additional Outcomes/Goals: Intervention/Plan: Advocate for lipid panel cholesterol medication if applicable, Instruct on personal lipid levels & lipid goals/NCEP guidelines, Instruct on cholesterol and Other additional plan/int Referral to dietitian:: Yes 30-day Reassessments:: Progressing Reassessment Notes & Comments:: Risk factors and how to minimize risk factors discussed with pt. Pt demonstrates understanding. Diabetes (Other Core Measures) Diabetes Type: Not Applicable Weight Mgt (Other Care) Height: 5 ft 1 in Weight:: 153 lb BMI: 28.9 Diagnosis Overweight/Obesity BMI> 30% ICD-10 E66: No Diagnosis High BMI/Morbid Obesity BMI> 35% ICD-10 Z68: No Outcomes/Goals: Pt sets, maintains & shows weight loss goal & trend during rehab and Other additional outcomes/goals Intervention/Plan: Instruct on ideal BMI & set weight loss goal w/patient, Assist pt to ID & incorporate diet changes for weight loss by S9, Refer to Structured Weight Loss program as appropriate, Encourage goal of using 250- 300dcal per session for weight loss and Other additional plan/interventions 30 day Reassessments:: Progressing Reassessment Notes & Comments:: Pt has attended nutrition class. Pt has lost 3 lbs since eval weight. Healthy Eating Habits Will attend diet classes:: Yes Outcomes/Goals:: Consume diet rich in vegs,fruits,whole grain/high fiber,fish,lean meat, Limit sat/trans fats,cholesterol & added salts & sugars and Other additional outcome/goals: Intervention/Plan:: Assess current eating habits and Other Additional plan/interventions 30-day Reassessments:: Met Reassessment Notes & Comments:: Pt has attended nutrition class and understands the importance of a heart healthy diet. Education Gave educational materials for:: Signs & symptoms of hypoglycemia, Signs & symptoms of hyperglycemia, Relate diabetes to coronary artery disease and Healthy eating Nutrition - 60-Day Assessment Weight Mgt (Other Care) Height: 5 ft 1 in Weight:: 153 lb BMI: 28.9 Core - 30-Day Assessment Visit Date of Eval: 04/08/24 Session #:: 9 Medication Compliance Preventative Medication(s):: Aspirin, Ticagrelor/P2Y12 inhibitor, Statin/lipid, Beta allen and ARB (Angiotensi Rcap) H/O mental health issues: depression, anxiety, or addiction?: Yes Doesn?t believe in the benefits of treatment?: No Believes medications are unnecessary or harmful?: No Has a concern about medication side effects?: No Expresses concern over the cost of medications?: No Outcomes/Goals: Verbalizes medications,desired effect & common side effects @ DC, Pt self-reports following medication regimen, Keeps card in wallet w/medications listed by DC and Other additional outcome/goals: Interventions/plans: Instruct on medication effects & side effects, Review medication list w/patient every two weeks, Instruct importance of taking meds as ordered & assist problem solving and Other additional 30-day Reassessments:: Progressing Reassessment Notes & Comments:: Pt encouraged to take her meds as prescribed by her physician. Pt understands the importance Tobacco Use Tobacco Use: Non-smoker How long ago did you quit using tobacco products?: Greater than or equal to 6 months ago Years Smokin (Pt stopped in 1986. Pt smoked 5 cigarettes a day.) 30-day Reassessments:: Met Reassessment Notes & Comments:: Pt is currently a non smoker Hypertension Hypertension Diagnosis:: Hypertension ICD-10 I10 Resting Blood Pressure:: 130/58 [place] [employer] Hypertension Guidelines Peak Exercise Blood Pressure:: 152/60 Outcomes/Goals: Able to verbalize/achieve optimal blood pressure <130/80, Incorporates diet changes & exercise for blood pressure control by DC and Other additional outcomes/goals Interventions/plan: Instruct on optimal blood pressure, hypertension & medications, Instruct on effects of sodium, alcohol, stress, exercise &hypertension and Other additional plan/interventions 30 day Reassessments:: Progressing Reassessment Notes & Comments:: Pt's BP's are within AHA's normal limits about half of the time. Will continue to monitor and send report to pt's physician if necessary. Tobacco Cessation Referral Smoking Cessation Referral:: No Individual Education/Counseling:: No Education Schedule Given:: Yes Psychosocial - 30-Day Assess VIsit Date of Eval: 04/08/24 Session #:: 9 History of previous Mental disease:: Yes History of Emotional Disorders: Anxious Target Goals Target Goals Psychosocial Test Tool Used:: [employer] QOL Cardiac and PHQ-9 Questionnaire phq-9 Severity Referral to Behavioral Health PS - Interventions: Yes: Attend Stress Management Classes Outcomes/Goals: See list Psychosocial Outcomes/Goals:: ID's personal stressors & 2 strategies to manage stress by discharge and Other Additional outcome/goals: Intervention/Plan: See List Interventions/Plan:: Assess stressors,coping strategies & signs of derpression on admission, Instruct/assist pt to develop coping & personal stress Mgt strategies, Refer to Behavioral Health if appropriate, Refer to Physician if appropriate, Instruct patient to recognize signs & symptoms of depression, Instruct patient to recog and Other additional plan/intervention 30-day Reassessments: 30 day Reassessments:: Progressing Reassessment Notes & Comments:: Pt is currently on meds for anxiety and states she is doing well. Psychosocial - 60-Day Assess Target Goals Target Goals Referral to Behavioral Health PS - Interventions: Yes: Attend Stress Management Classes Outcomes/Goals: See list Psychosocial Outcomes/Goals:: ID's personal stressors & 2 strategies to manage stress by discharge and Other Additional outcome/goals: Psychosocial - 90-Day Assess Target Goals Target Goals Referral to Behavioral Health PS - Interventions: Yes: Attend Stress Management Classes Psychosocial - Final Assessmen Target Goals Target Goals Referral to Behavioral Health PS - Interventions: Yes: Attend Stress Management Classes Nutrition - 90-Day Assessment Weight Mgt (Other Care) Height: 5 ft 1 in Weight:: 153 lb BMI: 28.9 Nutrition - Final Assessment Weight Mgt (Other Care) Height: 5 ft 1 in Weight:: 153 lb BMI: 28.9
[2024-04-08 08:29] VITALS: BP 130/58; BMI 28.9
== END 2024-04-13 23:59 ==
LOC: CR 09:15
PROVIDERS: PCP Internal Medicine; Referring Provider Internal Medicine Cardiovascular Disease; Visit Provider Internal Medicine Cardiovascular Disease
DX: Z95.5 Presence of coronary angioplasty implant and graft (principal); I25.10 Atherosclerotic heart disease of native coronary artery without angina pectoris; I77.9 Disorder of arteries and arterioles, unspecified; I10 Essential (primary) hypertension; E78.5 Hyperlipidemia, unspecified
CPT/HCPCS: 93798

== ENCOUNTER → 2024-04-19 | Outpatient (CLI) | payer MEDICARE, SELFPAY ==
[2024-04-08 08:29] VITALS: BMI 28.9
[2024-04-19 10:32] LABS: Absolute Lymphocyte Count 2.47 X10^3/uL (0.83-4.51); Absolute Neutrophil Count 4.5 X10^3/uL (2.0-7.7); Basophil% 1.2 % (0-1); Eosinophil# 0.18 X10^3/uL; Eosinophils% 2.2 % (0-5); Hematocrit 39.5 % (37-47); Hemoglobin 13.5 g/dL (12.0-15.0); Lymphocyte # 2.47 X10^3/ul (0.83-4.51); Lymphocyte % 30.7 % (19-41); Mean Corp Hgb Conc 34.2 g/dL (32-36); Mean Corpuscular Hgb 31.8 pg (27.0-32.0); Mean Corpuscular Volume 92.9 fL (81-99); Mean Platelet Vol. 9.9 fl (6.2-12.0); Monocyte# 0.81 X10^3/uL; Monocyte% 10.1 % (0-10); NRBC Flagged by Analyzer 0 % (0-5); Neutrophil # 4.45 X10^3/uL (2.7-7.7); Neutrophil % 55.4 % (47-70); Platelet Count 301 K/mm3 (150-450); RBC Distribution Width CV 12.7 % (11.6-14.6); RBC Distribution Width SD 43.4 fl (35.1-43.9); Red Blood Count 4.25 M/mm3 (4.2-5.4)
[2024-04-19 11:33] LABS: Anion Gap 5 (5-15); BUN 15 mg/dL (7-18); BUN/Creat Ratio 14.9 RATIO (10-20); Calcium,Total 9.1 mg/dL (8.5-10.1); Chloride 108 mmol/L (98-107); Creatinine, Serum 1.01 mg/dL (0.55-1.02); EST Glomerular Filtration Rate 57 mL/min (>60); Est Glom Filt Rate - Afr Amer 69 mL/min (>60); Glucose 104 mg/dL (74-106); Magnesium 1.8 mg/dL (1.6-2.6); Potassium 4.3 mmol/L (3.5-5.1); Sodium Level 137 mmol/L (136-145); Thyroid Stim Hormone (TSH) 0.508 uIU/mL (0.358-3.740)
== END | disposition home or self-care (01) ==
PROVIDERS: PCP Internal Medicine; Referring Provider Physician Assistant Medical; Visit Provider Physician Assistant Medical
DX: R55 Syncope and collapse (principal); R53.1 Weakness
CPT/HCPCS: 36415; 80048; 83735; 84443; 85025

== ENCOUNTER 2024-05-13 09:15 | Outpatient (RCR) | payer MEDICARE, SELFPAY ==
[2024-04-08 08:29] VITALS: BMI 28.9
[2024-04-14 00:53] VITALS: BP 130/58
--- NOTE | 2024-05-07 07:02 | PCM.CR.ITP ---
Exercise - Initial Assessment Physician Prescribed Exercise Modalities: Treadmill, Schwinn Airdyne AD-7 and SciFit Stepper Nutrition - Initial Assessment Weight Mgt (Other Care) Height: 5 ft 1 in Weight:: 152 lb BMI: 28.7 Core - Initial Assessment Hypertension Resting Blood Pressure:: 114/56 Citizen Of [place] [employer] Hypertension Guidelines Psychosocial - Initial Assess Target Goals Target Goals Referral to Behavioral Health PS - Interventions: Yes: Attend Stress Management Classes Self-Efficacy 6-Item Scale 60-Day Re-eval Assessment: We would like to know how confident you are in doing certain activities. Please select your confidence level for: Fatigue Select Number: 8 Physical Discomfort or Pain Select Number: 9 Emotional Distress Other Symptoms or Health Problems Select Number: 10 Different Tasks and Activities Select Number: 10 Medication Select Number: 10 Nutrition Survey Nutrition Survey Instructions Scoring Instructions Exercise - 30-day Assessment Physician Prescribed Exercise Modalities: Treadmill, Schwinn Airdyne AD-7 and SciFit Stepper Exercise - 60-day Assessment Visit Date of Eval: 05/07/24 Session #:: 20 Physician Prescribed Exercise Modalities: Treadmill, Schwinn Airdyne AD-7 and SciFit Stepper Frequency: 3x/week for 12 weeks [36 sessions] Intensity: 60-80% of age predicted maximum heart rate reserve Duration: 30 - 45 minutes Current METSs:: 5.7 Target Heart Rate:: 88-110 Current RPE:: 12-13 Maximum Excercise HR:: 113 Resting Blood Pressure: 124/60 Maximum Exercise Blood Pressure: 156/60 EKG Type: NSR to ST with rare pvc's, pac's Outcomes & Goals Goals:: Verbalizes understanding of THR, RPE & goal METS by session 6, Documents in home exercise log/reports 30 min aerobic 5 day/wk by DC, Demonstrates accurate pulse taking by DC and Other additional outcome/goals: see below Intervention & Plan Exercise Program Goals: Instruct on personal THR & RPE, Instruct on MET level & personal MET goal, Show patient to take own pulse /validate performance until accurate, Instruct on home exercise and Other additional plan/int Physical Activity Home Exercise Physical Activity - Home Exercise: Safe Exercise, Warm-up, Self-monitoring, Cool-Down, Home Exercise > 30 min Daily and Sitting Time <3 hours/daily Outcomes & Goals Outcomes/Goals: Demonstrates correct Warm-up/exercise Cool-Down (S3) if = 2.5 METs, Verbalizes symptoms of exercise intolerance by Session 3 (S3), Demonstrate safe equipment use (S3) & follows exercise prescrition (6) and Other: See below Intervention & Plan Plan/Intervention: Instruct warm-up & cool-down if exercising at > 2 METs, Instruct on symptoms of exercise intolerance & actions to take, Instruct & monitor on saf, Assess intial functional capacity & safety risk and Other See below 30-day Reassessments 30 day Reassessments:: Progressing Reassessment Notes & Comments:: Proper cool down explained and demonstrated to pt. Pt is able to return demonstration. Exercise - 90-day Assessment Physician Prescribed Exercise Modalities: Treadmill, Schwinn Airdyne AD-7 and SciFit Stepper Exercise - Final/Discharge Physician Prescribed Exercise Modalities: Treadmill, Schwinn Airdyne AD-7 and SciFit Stepper Nutrition - 30-Day Assessment Weight Mgt (Other Care) Height: 5 ft 1 in Weight:: 152 lb BMI: 28.7 Nutrition - 60-Day Assessment Program Goals Nutrition Program Goals Patient has diagnosis of Hyperlipidemia (ICD E78)?: Yes Visit Date of Eval: 05/07/24 Session #:: 20 Cholesterol/Lipids (Other Core Measures) Determine presence & major risk factors that modify LDL goal: Cigarette smoking, Hypertension or hypertensive medication, Low HDL cholesterol <40 mg/dL*, Family history of premature CHD in Male < 55 years: female <65 yearsFa and Age men > 45 years; women >/= 55 years Outcomes/Goals: Pt IDs own risk factors & lifestyle modifications by Session 10, Verbalizes symptoms of angina & response by session 3., Pt independently manages and Other Additional Outcomes/Goals: Intervention/Plan: Advocate for lipid panel cholesterol medication if applicable, Instruct on personal lipid levels & lipid goals/NCEP guidelines, Instruct on cholesterol and Other additional plan/int Referral to dietitian:: Yes Diabetes (Other Core Measures) Diabetes Type: Not Applicable Weight Mgt (Other Care) Height: 5 ft 1 in Weight:: 152 lb BMI: 28.7 Diagnosis Overweight/Obesity BMI> 30% ICD-10 E66: No Diagnosis High BMI/Morbid Obesity BMI> 35% ICD-10 Z68: No Outcomes/Goals: Pt sets, maintains & shows weight loss goal & trend during rehab and Other additional outcomes/goals Intervention/Plan: Instruct on ideal BMI & set weight loss goal w/patient, Assist pt to ID & incorporate diet changes for weight loss by S9, Refer to Structured Weight Loss program as appropriate, Encourage goal of using 250-300dcal per session for weight loss and Other additional plan/interventions Healthy Eating Habits Will attend diet classes:: Yes Outcomes/Goals:: Consume diet rich in vegs,fruits,whole grain/high fiber,fish,lean meat, Limit sat/trans fats,cholesterol & added salts & sugars and Other additional outcome/goals: Intervention/Plan:: Assess current eating habits and Other Additional plan/interventions 30-day Reassessments:: Progressing Reassessment Notes & Comments:: Pt has lost another pound. Pt has attended nutrition class. Pt understands the importance of a heart healthy low sodium diet. Will encourage pt to keep a fool log to stay on track. Education Gave educational materials for:: Signs & symptoms of hypoglycemia, Signs & symptoms of hyperglycemia, Relate diabetes to coronary artery disease and Healthy eating Core - Final Assessment Tobacco Use Years Smokin (Pt stopped in 1986) Hypertension Resting Blood Pressure:: 114/56 Citizen Of [place] [employer] Hypertension Guidelines Core - 60-Day Assessment Visit Date of Eval: 05/07/24 Session #:: 20 Medication Compliance Preventative Medication(s):: Aspirin, Ticagrelor/P2Y12 inhibitor, Statin/lipid, Beta allen and ARB (Angiotensi Rcap) H/O mental health issues: depression, anxiety, or addiction?: Yes Doesn?t believe in the benefits of treatment?: No Believes medications are unnecessary or harmful?: No Has a concern about medication side effects?: No Expresses concern over the cost of medications?: No Outcomes/Goals: Verbalizes medications,desired effect & common side effects @ DC, Pt self-reports following medication regimen, Keeps card in wallet w/medications listed by DC and Other additional outcome/goals: Interventions/plans: Instruct on medication effects & side effects, Review medication list w/patient every two weeks, Instruct importance of taking meds as ordered & assist problem solving and Other additional Tobacco Use Tobacco Use: Non-smoker Years Smokin (Pt stopped in 1986) Hypertension Hypertension Diagnosis:: Hypertension ICD-10 I10 Resting Blood Pressure:: 124/60 Resting Blood Pressure:: 114/56 Citizen Of [place] Heart [employer] Hypertension Guidelines Peak Exercise Blood Pressure:: 156/60 Outcomes/Goals: Able to verbalize/achieve optimal blood pressure <130/80, Incorporates diet changes & exercise for blood pressure control by DC and Other additional outcomes/goals Interventions/plan: Instruct on optimal blood pressure, hypertension & medications, Instruct on effects of sodium, alcohol, stress, exercise &hypertension and Other additional plan/interventions 30 day Reassessments:: Progressing Reassessment Notes & Comments:: Pt's BP's are within AHA's normal limits on most days. Will continue to encourage pt to lose weight and eat a low sodium heart healthy diet. Sammy continue to monitor BP's and report to physician if necessary. Tobacco Cessation Referral Smoking Cessation Referral:: No Individual Education/Counseling:: No Education Schedule Given:: Yes Psychosocial - 30-Day Assess Target Goals Target Goals Referral to Behavioral Health PS - Interventions: Yes: Attend Stress Management Classes Outcomes/Goals: See list Psychosocial Outcomes/Goals:: ID's personal stressors & 2 strategies to manage stress by discharge and Other Additional outcome/goals: Psychosocial - 60-Day Assess VIsit Date of Eval: 05/07/24 Session #:: 20 History of Emotional Disorders: Anxious Target Goals Target Goals Psychosocial Test Tool Used:: [employer] [place] QOL Cardiac and PHQ-9 Questionnaire phq-9 Severity Referral to Behavioral Health PS - Interventions: Yes: Attend Stress Management Classes Outcomes/Goals: See list Psychosocial Outcomes/Goals:: ID's personal stressors & 2 strategies to manage stress by discharge and Other Additional outcome/goals: Intervention/Plan: See List Interventions/Plan:: Assess stressors,coping strategies & signs of derpression on admission, Instruct/assist pt to develop coping & personal stress Mgt strategies, Refer to Behavioral Health if appropriate, Refer to Physician if appropriate, Instruct patient to recognize signs & symptoms of depression, Instruct patient to recog and Other additional plan/intervention 30-day Reassessments: 30 day Reassessments:: Progressing Reassessment Notes & Comments:: Pt is currently on meds for anxiety and states she is doing well Psychosocial - 90-Day Assess Target Goals Target Goals Referral to Behavioral Health PS - Interventions: Yes: Attend Stress Management Classes Psychosocial - Final Assessmen Target Goals Target Goals Referral to Behavioral Health PS - Interventions: Yes: Attend Stress Management Classes Nutrition - 90-Day Assessment Weight Mgt (Other Care) Height: 5 ft 1 in Weight:: 152 lb BMI: 28.7 Nutrition - Final Assessment Weight Mgt (Other Care) Height: 5 ft 1 in Weight:: 152 lb BMI: 28.7
[2024-05-07 07:16] VITALS: BP 114/56; BP 124/60; BMI 28.7
== END 2024-05-14 23:59 ==
LOC: CR 09:15
PROVIDERS: PCP Internal Medicine; Referring Provider Internal Medicine Cardiovascular Disease; Visit Provider Internal Medicine Cardiovascular Disease
DX: Z95.0 Presence of cardiac pacemaker (principal); I25.10 Atherosclerotic heart disease of native coronary artery without angina pectoris; I77.9 Disorder of arteries and arterioles, unspecified; I10 Essential (primary) hypertension; E78.5 Hyperlipidemia, unspecified
CPT/HCPCS: 93798; 97802

== ENCOUNTER 2024-06-14 09:15 | Outpatient (RCR) | payer MEDICARE, SELFPAY ==
[2024-05-07 07:16] VITALS: BMI 28.7
[2024-05-15 00:26] VITALS: BP 114/56; BP 124/60; BP 130/58
--- NOTE | 2024-06-07 08:06 | PCM.CR.ITP ---
Exercise - Initial Assessment Physician Prescribed Exercise Modalities: Treadmill, Schwinn Airdyne AD-7 and SciFit Stepper Nutrition - Initial Assessment Weight Mgt (Other Care) Height: 5 ft 1 in Weight:: 151 lb BMI: 28.5 Psychosocial - Initial Assess Target Goals Target Goals Referral to Behavioral Health PS - Interventions: Yes: Attend Stress Management Classes Self-Efficacy 6-Item Scale 90-Day Re-eval Assessment: We would like to know how confident you are in doing certain activities. Please select your confidence level for: Fatigue Select Number: 8 Physical Discomfort or Pain Select Number: 9 Emotional Distress Select Number: 7 Other Symptoms or Health Problems Select Number: 10 Different Tasks and Activities Select Number: 10 Medication Select Number: 10 Total Score:: 9 Nutrition Survey Nutrition Survey Instructions Scoring Instructions Exercise - 30-day Assessment Physician Prescribed Exercise Modalities: Treadmill, Schwinn Airdyne AD-7 and SciFit Stepper Exercise - 60-day Assessment Physician Prescribed Exercise Modalities: Treadmill, Schwinn Airdyne AD-7 and SciFit Stepper Exercise - 90-day Assessment Visit Date of Eval: 06/07/24 Session #:: 31 Physician Prescribed Exercise Modalities: Treadmill, Schwinn Airdyne AD-7 and SciFit Stepper Frequency: 3x/week for 12 weeks [36 sessions] Intensity: 60-80% of age predicted maximum heart rate reserve Duration: 30 - 45 minutes Current METSs:: 6 Target Heart Rate:: 88-117 Current RPE:: 12-13 Maximum Excercise HR:: 111 Resting Blood Pressure: 140/60 Maximum Exercise Blood Pressure: 138/68 EKG Type: SR to ST with a raqre pac, pvc Outcomes & Goals Goals:: Verbalizes understanding of THR, RPE & goal METS by session 6, Documents in home exercise log/reports 30 min aerobic 5 day/wk by DC, Demonstrates accurate pulse taking by DC and Other additional outcome/goals: see below Intervention & Plan Exercise Program Goals: Instruct on personal THR & RPE, Instruct on MET level & personal MET goal, Show patient to take own pulse /validate performance until accurate, Instruct on home exercise and Other additional plan/int Physical Activity Home Exercise Physical Activity - Home Exercise: Safe Exercise, Warm-up, Self-monitoring, Cool-Down, Home Exercise > 30 min Daily and Sitting Time <3 hours/daily Outcomes & Goals Outcomes/Goals: Demonstrates correct Warm-up/exercise Cool-Down (S3) if = 2.5 METs, Verbalizes symptoms of exercise intolerance by Session 3 (S3), Demonstrate safe equipment use (S3) & follows exercise prescrition (6) and Other: See below Intervention & Plan Plan/Intervention: Instruct warm-up & cool-down if exercising at > 2 METs, Instruct on symptoms of exercise intolerance & actions to take, Instruct & monitor on saf, Assess intial functional capacity & safety risk and Other See below 30-day Reassessments 30 day Reassessments:: Progressing Reassessment Notes & Comments:: Pt has 5 sessions remaining. Pt is ready to exercise on her own. Pt understands warm up, cool down, and safe exercise. Pt will be given suggestions on frequency, duration, and intensity of exercise upon graduation. Exercise - Final/Discharge Physician Prescribed Exercise Modalities: Treadmill, Schwinn Airdyne AD-7 and SciFit Stepper Nutrition - 30-Day Assessment Weight Mgt (Other Care) Height: 5 ft 1 in Weight:: 151 lb BMI: 28.5 Nutrition - 60-Day Assessment Weight Mgt (Other Care) Height: 5 ft 1 in Weight:: 151 lb BMI: 28.5 Core - 30-Day Assessment Hypertension [place] [employer] Hypertension Guidelines Reassessment Notes & Comments:: BP's are still slightly elevated. Continue to encourage low sodium and weight loss. Core - Final Assessment Hypertension [place] [employer] Hypertension Guidelines Reassessment Notes & Comments:: BP's are still slightly elevated. Continue to encourage low sodium and weight loss. Core - 90 Day Assessment Visit Date of Eval: 06/07/24 Medication Compliance Preventative Medication(s):: Aspirin, Ticagrelor/P2Y12 inhibitor, Statin/lipid, Beta allen and ARB (Angiotensi Rcap) H/O mental health issues: depression, anxiety, or addiction?: Yes Doesn?t believe in the benefits of treatment?: No Believes medications are unnecessary or harmful?: No Has a concern about medication side effects?: No Expresses concern over the cost of medications?: No Outcomes/Goals: Verbalizes medications,desired effect & common side effects @ DC, Pt self-reports following medication regimen, Keeps card in wallet w/medications listed by DC and Other additional outcome/goals: Interventions/plans: Instruct on medication effects & side effects, Review medication list w/patient every two weeks, Instruct importance of taking meds as ordered & assist problem solving and Other additional Tobacco Use Tobacco Use: Non-smoker Years Smokin (stopped in 1986) 30-day Reassessments:: Met Hypertension Resting Blood Pressure:: 138/68 [place] [employer] Hypertension Guidelines Peak Exercise Blood Pressure:: 134/58 Outcomes/Goals: Able to verbalize/achieve optimal blood pressure <130/80, Incorporates diet changes & exercise for blood pressure control by DC and Other additional outcomes/goals Interventions/plan: Instruct on optimal blood pressure, hypertension & medications, Instruct on effects of sodium, alcohol, stress, exercise &hypertension and Other additional plan/interventions 30 day Reassessments:: Progressing Reassessment Notes & Comments:: BP's are still slightly elevated. Continue to encourage low sodium and weight loss. Tobacco Cessation Referral Smoking Cessation Referral:: No Individual Education/Counseling:: No Education Schedule Given:: Yes Psychosocial - 30-Day Assess Target Goals Target Goals Referral to Behavioral Health PS - Interventions: Yes: Attend Stress Management Classes Psychosocial - 60-Day Assess Target Goals Target Goals Referral to Behavioral Health PS - Interventions: Yes: Attend Stress Management Classes Psychosocial - 90-Day Assess VIsit Date of Eval: 06/07/24 Session #:: 31 History of previous Mental disease:: Yes History of Emotional Disorders: Anxious Target Goals Target Goals Psychosocial Test Tool Used:: [employer] QOL Cardiac and PHQ-9 Questionnaire phq-9 Severity Referral to Behavioral Health PS - Interventions: Yes: Attend Stress Management Classes Outcomes/Goals: See list Psychosocial Outcomes/Goals:: ID's personal stressors & 2 strategies to manage stress by discharge and Other Additional outcome/goals: Intervention/Plan: See List Interventions/Plan:: Assess stressors,coping strategies & signs of derpression on admission, Instruct/assist pt to develop coping & personal stress Mgt strategies, Refer to Behavioral Health if appropriate, Refer to Physician if appropriate, Instruct patient to recognize signs & symptoms of depression, Instruct patient to recog and Other additional plan/intervention 30-day Reassessments: 30 day Reassessments:: Met Reassessment Notes & Comments:: Pt is on meds for anxiety and states she is doing well Psychosocial - Final Assessmen Target Goals Target Goals Referral to Behavioral Health PS - Interventions: Yes: Attend Stress Management Classes Nutrition - 90-Day Assessment Program Goals Nutrition Program Goals Patient has diagnosis of Hyperlipidemia (ICD E78)?: Yes Visit Date of Eval: 06/07/24 Session #:: 31 Cholesterol/Lipids (Other Core Measures) Determine presence & major risk factors that modify LDL goal: Cigarette smoking, Hypertension or hypertensive medication, Low HDL cholesterol <40 mg/dL*, Family history of premature CHD in Male < 55 years: female <65 yearsFa and Age men > 45 years; women >/= 55 years Outcomes/Goals: Pt IDs own risk factors & lifestyle modifications by Session 10, Verbalizes symptoms of angina & response by session 3., Pt independently manages and Other Additional Outcomes/Goals: Intervention/Plan: Advocate for lipid panel cholesterol medication if applicable, Instruct on personal lipid levels & lipid goals/NCEP guidelines, Instruct on cholesterol and Other additional plan/int Referral to dietitian:: Yes Diabetes (Other Core Measures) Diabetes Type: Not Applicable Weight Mgt (Other Care) Height: 5 ft 1 in Weight:: 151 lb BMI: 28.5 Diagnosis Overweight/Obesity BMI> 30% ICD-10 E66: No Diagnosis High BMI/Morbid Obesity BMI> 35% ICD-10 Z68: No Outcomes/Goals: Pt sets, maintains & shows weight loss goal & trend during rehab and Other additional outcomes/goals Intervention/Plan: Instruct on ideal BMI & set weight loss goal w/patient, Assist pt to ID & incorporate diet changes for weight loss by S9, Refer to Structured Weight Loss program as appropriate, Encourage goal of using 250-300dcal per session for weight loss and Other additional plan/interventions Healthy Eating Habits Will attend diet classes:: Yes Outcomes/Goals:: Consume diet rich in vegs,fruits,whole grain/high fiber,fish,lean meat, Limit sat/trans fats,cholesterol & added salts & sugars and Other additional outcome/goals: Intervention/Plan:: Assess current eating habits and Other Additional plan/interventions 30-day Reassessments:: Progressing Reassessment Notes & Comments:: Pt has attended nutrition class. Pt understands the importance of a low sodium heart healthy diet. Education Gave educational materials for:: Signs & symptoms of hypoglycemia, Signs & symptoms of hyperglycemia, Relate diabetes to coronary artery disease and Healthy eating Nutrition - Final Assessment Weight Mgt (Other Care) Height: 5 ft 1 in Weight:: 151 lb BMI: 28.5
[2024-06-07 08:16] VITALS: BP 140/60
[2024-06-07 08:26] VITALS: BP 138/68; BMI 28.5
== END 2024-06-14 23:59 ==
LOC: CR 09:15
PROVIDERS: PCP Internal Medicine; Referring Provider Internal Medicine Cardiovascular Disease; Visit Provider Internal Medicine Cardiovascular Disease
DX: Z95.5 Presence of coronary angioplasty implant and graft (principal); I25.10 Atherosclerotic heart disease of native coronary artery without angina pectoris; I77.9 Disorder of arteries and arterioles, unspecified; I10 Essential (primary) hypertension; E78.5 Hyperlipidemia, unspecified

== ENCOUNTER 2024-06-17 09:20 | Outpatient (RCR) | payer MEDICARE, SELFPAY ==
[2024-06-07 08:26] VITALS: BMI 28.5
== END 2024-07-12 23:59 ==
LOC: CR 09:20
PROVIDERS: PCP Internal Medicine; Referring Provider Internal Medicine Cardiovascular Disease; Visit Provider Internal Medicine Cardiovascular Disease
DX: I25.10 Atherosclerotic heart disease of native coronary artery without angina pectoris (principal); I77.9 Disorder of arteries and arterioles, unspecified; I10 Essential (primary) hypertension; E78.5 Hyperlipidemia, unspecified; Z95.5 Presence of coronary angioplasty implant and graft
CPT/HCPCS: 93798

== ENCOUNTER → 2024-10-05 | Outpatient (CLI) | payer MEDICARE, SELFPAY ==
[2024-08-01 08:50] VITALS: BMI 28.5
--- NOTE | 2024-10-05 08:09 | MRI_ITS ---
PROCEDURE: SPINE LUMBAR (ROUTINE) 10/05/2024 REASON FOR EXAM: PAIN TECHNIQUE: Multiplanar and multisequence images were obtained without IV contrast administration. COMPARISON: Radiographs on 08/05/2024. FINDINGS: Moderate diffuse spondylotic changes. Findings are demonstrated by multifocal disc dehydration, disc space narrowing, osteophyte formation and degenerative endplate changes. There is normal signal intensity from the visualized bone marrow without evidence of replacement or acute fracture. The conus is unremarkable. Mildly exaggerated lumbar lordosis. Evaluation of the individual levels revealed the following: L5-S1: There is grade 1 retrolisthesis measuring 4.2 mm. Moderate diffuse disc bulge. Superimposed right paracentral disc extrusion measuring 1.4???0.7 cm in its largest craniocaudal and anteroposterior dimensions respectively. Caudal subligamentous slippage of the herniated disc without sequestration. Bilateral facet joint arthropathy and ligamentum flavum hypertrophy. The spinal canal is moderately narrowed. There is moderate bilateral neural foramina narrowing. L4-5: There is grade 1 anterolisthesis measuring 4.3 mm. Prior laminectomies. Epidural fibrosis in the surgical bed. Moderate diffuse disc bulge. The spinal canal is mildly narrowed. There is mild bilateral neural foramina narrowing. L3-4: Prior laminectomies. Epidural fibrosis in the surgical bed. Moderate diffuse disc bulge. Superimposed left paracentral disc extrusion measuring 5.7 mm. Bilateral ligamentum flavum hypertrophy. The spinal canal is mildly narrowed. There is mild right and moderate left neural foramina narrowing. L2-3: There is mild diffuse disc bulge. Bilateral facet joint arthropathy and ligamentum flavum hypertrophy. The spinal canal is mildly narrowed. There is mild bilateral neural foramina narrowing. L1-2: There is grade 1 retrolisthesis measuring 4.6 mm with mild diffuse disc bulge. Bilateral facet joint arthropathy and ligamentum flavum hypertrophy. The spinal canal is mildly narrowed. There is mild bilateral neural foramina narrowing. T11-T12: There is mild diffuse disc bulge. Bilateral facet joint arthropathy and ligamentum flavum hypertrophy. The spinal canal is not narrowed. Mild bilateral neural foramina narrowing. T10-11: There is mild diffuse disc bulge. Bilateral facet joint arthropathy and ligamentum flavum hypertrophy. The spinal canal is not narrowed. Mild bilateral neural foramina narrowing. Normal visualized paraspinous soft tissue structures. MRI/Spine Lumbar (Routine) IMPRESSION: Spondylosis. Degenerative disc disease. [facility]
== END | disposition home or self-care (01) ==
LOC: MRI 07:49
PROVIDERS: PCP Internal Medicine; Referring Provider Student in an Organized Health Care Education/Training Program; Visit Provider Student in an Organized Health Care Education/Training Program
DX: M43.16 Spondylolisthesis, lumbar region (principal); M48.061 Spinal stenosis, lumbar region without neurogenic claudication
CPT/HCPCS: 72148

== ENCOUNTER 2024-10-18 13:23 | Emergency (ER) | payer MEDICARE, SELFPAY ==
[2024-08-01 08:50] VITALS: BMI 28.5
[2024-10-18] VITALS (7 sets, daily range): BP systolic 142–175; BP diastolic 60–79; PULSE 59–72; RESP 12–16; TEMP 36.6–36.7; O2SAT 94–100; BMI 29.8
--- NOTE | 2024-10-18 13:44 | EKG12_ITS ---
Test Reason : CP Blood Pressure : */* mmHG Vent. Rate : 64 BPM Atrial Rate : 64 BPM P-R Int : 168 ms QRS Dur : 78 ms QT Int : 418 ms P-R-T Axes : 59 15 45 degrees QTcB Int : 431 ms Normal sinus rhythm Normal ECG Confirmed by MADELAINE CARDONA, JYOTI ([id number]), food expeditor XOCHITL INMAN ([id number]) on 10/21/2024 6:53:14 AM Referred By: Confirmed By: JYOTI BURKETT MD
--- NOTE | 2024-10-18 13:52 | EDS_ITS ---
<Statement entered by Danish Campbell DO - 10/19/24 21:18> Patient was seen and examined with physician nurse's assistant Alicia All components of the history and physical confirmed and agreed. History of present illness and physical exam: Patient is a 73-year-old female with past medical history of CAD, alcohol use, hypertension, hyperlipidemia who presented to the emergency department chief complaint chest pain. Patient states that earlier in the day she was doing laundry and noted that she developed some discomfort but thought that things would get better then she sat down on the back of her back and noted that her symptoms progressively worsened. States that these felt similar to her last heart attack therefore she was concerned and came here for further evaluation m ryan. States that she took 3 baby aspirin and a sublingual nitro prior to arrival. She states that since arriving here her symptoms have improved significantly. Review of systems: As above Physical exam:. Agree with above MDM Patient is a 73-year-old female who presented to the emergency department chief complaint chest pain. On the differential diagnosis includes but not limited to ACS, pneumonia, pneumothorax, anxiety. Once workup is obtained reviewed she will be reevaluated. Previous cardiology notes were reviewed and at that point time in 03/04/2024 she had a heart cath which demonstrated 50% stenosis in her proximal RCA, 95% stenosis in her mid RCA and 60% stenosis in her proximal LAD she also had a 40% stenosis of the proximal left circumflex. She underwent successful stent placement to the mid RCA. Echocardiogram from 03/05/2024 demonstrated EF 60%. Patient CBC reviewed showed a white blood count is normal at 7.4, he was 13.4, platelet count normal at 309. Patient sodium normal 135, potassium of 4.3, creatinine normal at 0.95. Patient's troponin was 12 with a delta troponin of 10. Patient's EKG reviewed and showed sinus rhythm with a rate of 61 bpm. Pat ient chest x-ray reviewed by myself by radiology which showed no acute cardiopulmonary processes. Reached out to cardiology Alicia the physician nurse's assistant and spoke with on-call dental associate Dr. Albright who feels that she can go home and return with worsening symptoms or other concerns. She is vies to follow-up with her doctor in outpatient setting. She is agreeable to plan as well as significant other bedside all questions were answered she is discharged home in stable condition. Plan: Final impression: Chest pain Disposition: Patient will be discharged home in stable condition Supervising attending attestation: Danish WILKINSON History of Present Illness Chief Complaint: Chest Pain Narrative Narrative: Patient presenting today due to midsternal chest pain that radiated into the bilateral neck and bilateral jaw that started before noon this afternoon. She was sitting on her deck when her symptoms started. Symptoms do not seem to get worse with exertion. She took 3 baby aspirin and a sublingual nitro and called EMS due to concerns. She reports that her symptoms have now significantly improved. She has a PMH of CAD with stent placement, hypothyroidism, and HLD. She takes a daily aspirin and Plavix. She denies fevers, chills, shortness of breath, abdominal pain, nausea, and vomiting. PE Risk Factors: Negative for Recent Travel/Surgery, Recent Immobilization, Prior DVT or PE or Cancer [facility] Medical History Laryngitis CAD (coronary artery disease) Abnormal cardiovascular stress test Post-menopausal Alcohol use Thyroid disease Back pain Former smoker Leg cramps History of echocardiogram Cardiology follow-up encounter Carotid artery disease COVID-19 (~03/06/22) Obesity Psychophysiologic insomnia Anxiety Essential (primary) hypertension Trigger finger, left ring finger Vitamin D deficiency Esophageal reflux Hyperlipidemia IBS (irritable bowel syndrome) Diffuse cystic mastopathy Generalized osteoarthritis Diarrhea due to COVID-19 Hypothyroidism (acquired) Strain of right forearm Strain of right wrist Strain of right hand Spinal stenosis of lumbosacral region Depression H/O radioactive iodine thyroid ablation Home Medications ?Medication ?Instructions ?Recorded ?Last Taken ?Type trazodone 100 mg tablet 100 mg PO QHS insomnia 08/17 Unknown History dicyclomine 10 mg capsule 10 mg PO 4X/DAY PRN abdomina l pain 03/28/22 Unknown History lorazepam 0.5 mg tablet 0.5 mg PO QHS PRN sleep 03/15 09/03 Unknown History omeprazole 40 mg capsule,delayed 40 mg PO BID gut 03/15 09/03 Unknown History release bupropion HCl 300 mg 24 hr tablet, 300 mg PO DAILY anx iety 04/11/22 Unknown History extended release cholecalciferol (vitamin D3) 50 4,000 unit PO DAILY nguyen pplement 04/11/22 Unknown History mcg (2,000 unit) tablet biotin 10,000 mcg capsule 5,000 mcg PO DAILY hair 10/14 09/05 Unknown History cyanocobalamin (B12)-cobamamide 1 rob sublingual DAILY suppliment 11/06/23 Unknown History 5,000 mcg-100 mcg sublingual lozenge (B12) levothyroxine 75 mcg tablet 75 mcg PO DAILY thyroid Unknown History meloxicam 15 mg tablet 15 mg PO DAILY inflimmation 03/02/24 Unknown History Held on 03/05/24. Instructions: Would recommend discontinuing this while you are on aspirin and Plavix due to increased risk of bleeding. Would avoid all NSAIDs aspirin 81 mg tablet,delayed 81 mg PO BREAKFAST #0 tab s 03/05/24 Unknown Rx release hydrochlorothiazide 25 mg tablet 25 mg PO DAILY #30 ta bs 03/05/24 Unknown Rx carvedilol 3.125 mg tablet 3.125 mg PO BID #180 tabs 1 06/04/23 Unknown Rx losartan 50 mg tablet 50 mg PO DAILY #90 tabs 03/16 06/07 Unknown Rx pravastatin 40 mg tablet 40 mg PO QHS #90 tabs Unknown Rx clopidogrel 75 mg tablet (Plavix) 75 mg PO QDAY #90 ta bs 07/29/24 Unknown Rx amoxicillin 875 mg tablet 875 mg PO BID #20 tabs 10/08 Unknown Rx tramadol 50 mg tablet 50 mg PO QD-TID PRN pain Unknown History Allergy/AdvReac Type Severity Reaction Status Date / Time sulfabenzamide Allergy Unknown red mouth Verified 10/10/24 08:29 nizatidine (From Axid) Allergy Hives Verified 10/10/24 08:29 Sulfa (Sulfonamide Allergy Rash, oral Verified 10/10/24 08:29 Antibiotics) redness atorvastatin AdvReac Intermediate Other Verified 10/10/24 08:29 duloxetine (From Cymbalta) AdvReac Intermediate Other Verified 10/10/24 08:29 lisinopril AdvReac Intermediate Other Verified 10/10/24 08:29 sibutramine (From Meridia) AdvReac Intermediate Rash Verified 10/10/24 08:29 Family History Mother Arthritis Myocardial infarction Father Diabetes Heart disease Sister Brain bleed Surgical History Stented coronary artery (03/04/24) History of radiofrequency ablation (RFA) of nerve of lumbar spine History of selective injection of anesthetic agent around lumbar nerve root History of lumbar surgery (~08/2020) History of esophagogastroduodenoscopy (EGD) (~02/27/20) History of colonoscopy History of tonsillectomy and adenoidectomy Hx of cataract removal with insertion of prosthetic lens (~2015) H/O dilation and curettage Social History household members: spouse housing: house Smoking Status: Former smoker how long ago did patient quit smokin years ago alcohol intake: current alcohol intake frequency: a few times a week substance use type: does not use caffeine: Yes Type: coffee Number of servings: 1 what type of physical activity do you participate in: walking, bicycling and other details: Cory do you feel safe at home: Yes ROS ROS ED Constitutional Constitutional ED: Denies chills or fever(s) Cardiovascular Cardiovascular: Reports chest pain; Denies palpitations Respiratory/Chest Respiratory/Chest: Denies cough or dyspnea Gastrointestinal Gastrointestinal: Denies abdominal pain, nausea or vomiting Musculoskeletal Musculoskeletal: Denies arthralgias or myalgias Integumentary Denies rash Neurologic Neurologic: Denies weakness EXAM Physical Exam Const Vital Signs: 10/18/24 13:24 10/18/24 13:26 10/18/24 13:33 Temperature 97.8 F 98.0 F Temperature Source Oral Temporal Pulse Rate 67 64 Respiratory Rate 16 16 Respiratory Effort Normal Non-Labored Blood Pressure 174/69 H 175/79 H Blood Pressure Mean 104 111 Pulse Ox 100 100 Oxygen Delivery Method Room Air Room Air 10/18/24 14:49 10/18/24 15:00 10/18/24 15:45 Temperature 97.8 F Temperature Source Oral Pulse Rate 70 72 62 Respiratory Rate 16 15 12 Respiratory Effort Blood Pressure 152/70 H 162/70 H 147/72 H Blood Pressure Mean 97 100 92 Pulse Ox 94 100 100 Oxygen Delivery Method Room Air Room Air 10/18/24 16:30 10/18/24 17:01 Temperature 98 F Temperature Source Pulse Rate 59 L 64 Respiratory Rate 14 16 Respiratory Effort Blood Pressure 142/60 H 142/60 H Blood Pressure Mean 86 87 Pulse Ox 100 99 Oxygen Delivery Method Positive well nourished, well developed and no apparent distress General Appearance ED: well developed HEENT Reports normocephalic and head/scalp atraumatic Mouth ED: Yes moist mucous membranes normal Eyes PERRL and EOMs intact bilaterally Neck full ROM and supple Chest Wall inspection of chest normal Chest Narrative: Minimal midsternal chest tenderness palpation Resp normal respiratory effort and clear to auscultation bilaterally Cardio regular rate and regular rhythm GI soft to palpation, non-tender, non-distended and no masses Back/Spine normal ROM and normal to inspection Extremity normal to inspection and full ROM Neuro oriented x3, CN's II-XII intact bilaterally, moves all extremities, no focal motor deficits and no sensory deficits noted Sensorium / Orientation: awake and alert Psych mental status grossly normal and thought process normal Skin no rashes or lesions noted and no wounds MDM MDM MDM Narrative Medical decision making narrative: Patient presenting today due to chest pain that started late this morning. She was sitting on her deck when it started, she did take aspirin and nitro at home and reports that her symptoms have improved now that she is here, she is unsure if the nitro gave relief of her symptoms. I did review her previous cardiology notes, on 03/04/2024 she had a heart cath which demonstrated 50% stenosis in her proximal RCA, 95% stenosis in her mid RCA, 60% stenosis in her proximal LAD, and 40% stenosis in her proximal left circumflex. She did undergo a successful EZEKIEL mid RCA. Her echocardiogram on 03/05/2024 demonstrated ejection fraction of 60%. Cardiac labs obtained today, her CBC, BMP, and delta troponin are unremarkable. Chest x-ray negative for cardiopulmonary abnormality. She has a low modified Granville score, low suspicion for PE. She did reports that her symptoms today felt similar to previous chest pain she had prior to her stents. I did talk with Dr. Albright, he feels that given her troponins are negative and her symptoms are improved that she can be discharged home with strict return instructions. She understands reasons to return to the emergency department and is comfortable with this plan, she would like to go home. She will discharge home in stable condition. Lab Data Attestation: I reviewed the patient's lab results. Labs: Laboratory Results - last 24 hr 10/18/24 10/18/24 14:00 16:00 WBC 7.4 RBC 4.26 Hgb 13.4 Hct 39.5 MCV 92.7 MCH 31.5 MCHC 33.9 RDW Std Deviation 43.7 RDW Coeff of [place] 12.8 Plt Count 309 MPV 9.6 Immature Gran % (Auto) 0.400 Neut % (Auto) 48.4 Lymph % (Auto) 38.1 Wise % (Auto) 10.0 Eos % (Auto) 2.2 Baso % (Auto) 0.9 Absolute Neuts (auto) 3.6 Absolute Lymphs (auto) 2.81 Nucleated RBC % 0 Sodium 135 Potassium 4.3 Chloride 99 Carbon Dioxide 23.9 Anion Gap 12 BUN 17 Creatinine 0.95 Estim Creat Clear Calc 47.05 L Est GFR (MDRD) Non-Af 63 BUN/Creatinine Ratio 17.6 Glucose 103 H Calcium 9.4 Troponin T High Sens 12 Troponin T Hi Sens 2 Hr 10
[2024-10-18 14:09] LABS: Absolute Lymphocyte Count 2.81 X10^3/uL (0.83-4.51); Absolute Neutrophil Count 3.6 X10^3/uL (2.0-7.7); Basophil# 0.07 X10^3/uL; Basophil% 0.9 % (0-1); Eosinophil# 0.16 X10^3/uL; Eosinophils% 2.2 % (0-5); Hematocrit 39.5 % (37-47); Hemoglobin 13.4 g/dL (12.0-15.0); Lymphocyte # 2.81 X10^3/ul (0.83-4.51); Lymphocyte % 38.1 % (19-41); Mean Corp Hgb Conc 33.9 g/dL (32-36); Mean Corpuscular Hgb 31.5 pg (27.0-32.0); Mean Corpuscular Volume 92.7 fL (81-99); Mean Platelet Vol. 9.6 fl (6.2-12.0); Monocyte# 0.74 X10^3/uL; NRBC Flagged by Analyzer 0 % (0-5); Neutrophil # 3.57 X10^3/uL (2.7-7.7); Neutrophil % 48.4 % (47-70); Platelet Count 309 K/mm3 (150-450); RBC Distribution Width CV 12.8 % (11.6-14.6); RBC Distribution Width SD 43.7 fl (35.1-43.9); Red Blood Count 4.26 M/mm3 (4.2-5.4); White Blood Count 7.4 K/mm3 (4.4-11.0)
--- NOTE | 2024-10-18 14:40 | RAD_ITS ---
PROCEDURE: CHEST PA AND LATERAL 10/18/2024 REASON FOR EXAM: CHEST PAIN TECHNIQUE: Frontal and lateral views of the chest. COMPARISON: AP chest of 03/02/2024. RAD/Chest PA and Lateral IMPRESSION: Lungs appear clear throughout. No pleural effusion or pneumothorax is evident. The cardiomediastinal silhouette is within the normal range. Mild to moderate thoracic spine degenerative changes are noted. Generalized osteopenia is seen. No acute osseous change is identified. Reading Location: [id number]
[2024-10-18 15:15] LABS: Anion Gap 12 (5-15); BUN 17 mg/dL (4-19); BUN/Creat Ratio 17.6 RATIO (10-20); Calcium,Total 9.4 mg/dL (7.6-11.0); Carbon Dioxide 23.9 mmol/L (21.0-32.0); Chloride 99 mmol/L (98-108); Creatinine, Serum 0.95 mg/dL (0.70-1.20); EST Glomerular Filtration Rate 63 (>60); Estimated Creatinine Clearance 47.05 ml/min (50-250); Glucose 103 mg/dL (70-99); Potassium 4.3 mmol/L (3.3-5.1); Sodium Level 135 mmol/L (133-145); Troponin T High Sensitivity 12 ng/L (<=14)
[2024-10-18 16:38] LABS: Troponin T High Sens 2 HR 10 ng/L (<=14)
== END 2024-10-18 17:01 | disposition home or self-care (01) ==
PROVIDERS: Physician Assistant; Emergency Provider Emergency Medicine; PCP Internal Medicine; Visit Provider Emergency Medicine
DX: R07.89 Other chest pain (principal); I25.10 Atherosclerotic heart disease of native coronary artery without angina pectoris; I10 Essential (primary) hypertension; E78.5 Hyperlipidemia, unspecified; Z95.5 Presence of coronary angioplasty implant and graft; Z79.02 Long term (current) use of antithrombotics/antiplatelets; Z79.82 Long term (current) use of aspirin; Z79.899 Other long term (current) drug therapy; Z86.16 Personal history of COVID-19; Z87.891 Personal history of nicotine dependence
CPT/HCPCS: 71046; 80048; 84484; 85025; 93005; 99285

== ENCOUNTER → 2024-10-23 | Outpatient (CLI) | payer MEDICARE, SELFPAY ==
[2024-08-01 08:50] VITALS: BMI 28.5
[2024-10-23 11:46] LABS: AST(SGOT) 22 U/L (<=31); Alanine Aminotransfer ALT/SGPT 12 U/L (<=34); Albumin, Serum 4.1 g/dL (3.4-4.8); Alkaline Phosphatase 60 U/L (35-104); Bilirubin, Direct 0.21 mg/dL (0.00-0.30); Cholesterol 181 mg/dL (<=200); Globulin 2.5 g/dL (2.2-4.2); High Density Lipoprotein 71 mg/dL; Low Density Lipoprotein Calc. 90 mg/dL; Protein, Total 6.5 g/dL (5.9-8.4); Total Bilirubin 0.43 mg/dL (0.00-1.30); Triglycerides 100 mg/dL; Very Low Density Lipoprotein 20 mg/dL (5-40); cholesterol:hdl ratio screen 2.55
== END | disposition home or self-care (01) ==
LOC: LAB 10:37
PROVIDERS: PCP Internal Medicine; Referring Provider Physician Assistant Medical; Visit Provider Physician Assistant Medical
DX: E78.5 Hyperlipidemia, unspecified (principal); Z95.5 Presence of coronary angioplasty implant and graft
CPT/HCPCS: 36415; 80061; 80076

== ENCOUNTER → 2024-11-25 | Outpatient (CLI) | payer MEDICARE, SELFPAY ==
[2024-08-01 08:50] VITALS: BMI 28.5
--- OUTSIDE RECORDS SUMMARY | 2024-11-25 06:10 | XMS RPT_ITS | CCD ---
Author Organization [facility] CliniSyny Care Team Providers Care Tobacco Sampler Name Role Phone Fiorella Hall MD Primary Care Provider Dr. Fiorella Hall Primary Care Provider Jay SCHMIDT PA Narendra Kang Attending Provider Dr. Fiorella Hall Referring Provider Fiorella Hall MD Primary Care Provider Fiorella Hall MD Primary Care Provider Dr. Fiorella Hall Primary Care Provider Suma Bliss Attending Provider Unavailable Sonal Veras Attending Provider Unavailable Dr. Fiorella Hall Referring Provider Dr. Mick Kam Attending Provider MICK KAM Referring Unavailable FIORELLA HALL Primary Care Unavailable Dr. Fiorella Hall Primary Care Provider Dr. Fiorella Hall Referring Provider ROXANA Haq Attending Provider Fiorella Hall MD Primary Care Provider Layo ENERGY CONSERVATION DIRECTOR.CLAY BURNER, Jeancarlos Unavailable Terrence ENERGY CONSERVATION DIRECTOR.MULTIMEDIA ENGINEER, Coco Unavailable Terrence ENERGY CONSERVATION DIRECTOR.MULTIMEDIA ENGINEER, Coco Unavailable FIORELLA HALL Referring Unavailable YRISAMPFIORELLA PALOMINO Primary Care Unavailable FIORELLA HALL Attending Unavailable YRISAMPFIORELLA PALOMINO Primary Care Unavailable TALAMPFIORELLA PALOMINO Attending Unavailable TALAMPMINAL, FIORELLA Primary Care Unavailable TERRENCE, COCO Attending Unavailable SELF Referring Unavailable TALAMPAS, FIORELLA Primary Care Unavailable TALAMPAS, FIORELLA Referring Unavailable TALAMPAS, FIORELLA Primary Care Unavailable TALAMPAS, FIORELLA Attending Unavailable VASQUES, JEANCARLOS Referring Unavailable TALAMPAS, FIORELLA Primary Care Unavailable TERRENCE, COCO Attending Unavailable TALAMPAS, FIORELLA Primary Care Unavailable WESTBROOK, ANNEMARIE D Referring Unavailable TALAMPAS, FIORELLA Primary Care Unavailable WESTBROOK, ANNEMARIE D Attending Unavailable WESTBROOK, ANNEMARIE D Referring Unavailable TALAMPAS, FIORELLA Primary Care Unavailable TALAMPAS, FIORELLA Referring Unavailable TALAMPAS, FIORELLA Primary Care Unavailable VASQUES, JEANCARLOS Referring Unavailable TALAMPAS, FIORELLA Primary Care Unavailable Yrisampminal CARDONA, Dr. Fiorlela Hood Primary Care Provider Skip CARDONA, Dr. Lechuga Attending Provider Skip CARDONA, Dr. Lechuga Referring Provider Kevin CARDONA, Dr. Fiorella Hood Referring Provider Hillary ASSISTANT ASSOCIATE PROFESSOR-CDany Attending Provider Javier ASSISTANT ASSOCIATE PROFESSOR-CDinah Attending Provider Eddy CARDONA, Dr. Barton Attending Provider Arianna Fam Attending Provider Arianna Fam Referring Provider Narendra Bowman Attending Provider Mao CARDONA, Dr. Lawrence Attending Provider Kevin CARDONA, Dr. Fiorella Hood Primary Care Provider [phone] Dr. Danish Campbell DO Emergency Provider Jewel Cherry Attending Provider Dr. Danish Campbell DO Attending Provider Jewel Cherry Referring Provider Miley Halla D Primary Care Unavailable Danish Campbell Attending Unavailable Yrsiampminal, Fiorella D Primary Care Unavailable Jewel Blount Attending Unavailabl e Jewel Blount Referring Unavailabl e Skip, Alexandrea Referring Unavailable Skip, Alexandrea Attending Unavailable Talampas, Fiorella D Primary Care Unavailable Skip, Alexandrea Referring Unavailable Skip, Alexandrea Attending Unavailable Talampas, Fiorella D Primary Care Unavailable Skip, Alexandrea Attending Unavailable Skip, Alexandrea Referring Unavailable Talampas, Fiorella D Primary Care Unavailable CullenSocratesArianna Attending Unavailable Cullen, Arianna Referring Unavailable Talampas, Fiorella D Primary Care Unavailable Skip, Alexandrea Referring Unavailable Skip, Alexandrea Attending Unavailable Talampas, Fiorella D Primary Care Unavailable Skip, Alexandrea Referring Unavailable Skip, Alexandrea Attending Unavailable Talampas, Fiorella D Primary Care Unavailable Talampas, Fiorella D Referring Unavailable Talampas, Fiorella D Primary Care Unavailable Jewel Blount Attending Unavailabl e Howard Cavanaugh Attending Unavailable Talampas, Fiorella D Primary Care Unavailable Talampas, Fiorella D Referring Unavailable Talampas, Fiorella D Referring Unavailable Talampas, Fiorella D Primary Care Unavailable Narendra Bowman Attending Unavailable Kasandra Hedrick Attending Unavailable Talampas, Fiorella D Primary Care Unavailable Vishal, Osman Admitting Unavailable Vishal, Osman Consulting Unavailable Koram, Bárbara Smita Consulting Unavailable Skip, Alexandrea Consulting Unavailable Kasandra Hedrick Consulting Unavailable Skip, Alexandrea Attending Unavailable CullenCarlitosyn Attending Unavailable Talampas, Fiorella D Referring Unavailable Talampas, Fiorella D Primary Care Unavailable Skip, Alexandrea Referring Unavailable Skip, Alexandrea Attending Unavailable Talampas, Fiorella D Primary Care Unavailable Talampas, Fiorella D Primary Care Unavailable Jewel Blount Attending UnavailJewel Lyons Referring Unavailabl e Koram, Bárbara Smita Attending Unavailable Vishal, Osman Attending Unavailable Skip, Alexandrea Attending Unavailable Talampas, Iforella D Primary Care Unavailable Dany Thornton Attending Unavailable Talampas, Fiorella D Referring Unavailable Talampas, Fiorella D Primary Care Unavailable Kasandra Hedrick Attending Unavailable Talampas, Fiorella D Primary Care Unavailable Vishal, Osman Admitting Unavailable Vishal, Osman Consulting Unavailable Koram, Bárbara Smita Consulting Unavailable Skip, Alexandrea Consulting Unavailable Skip, Alexandrea Referring Unavailable Skip, Alexandrea Attending Unavailable Talampas, Fiorella D Primary Care Unavailable Mick Kam Attending Unavailable Talampas, Fiorella D Primary Care Unavailable Skip, Alexandrea Referring Unavailable Skip, Alexandrea Attending Unavailable Talampas, Fiorella D Primary Care Unavailable Dinah Herrera Attending Unavailable Talampas, Fiorella D Referring Unavailable Talampas, Fiorella D Primary Care Unavailable Suma Reyna Attending Unavailable Talampas, Fiorella D Referring Unavailable Talampas, Fiorella D Primary Care Unavailable Talampas, Fiorella D Referring Unavailable Talampas, Fiorella D Primary Care Unavailable Narendra Bowman Attending Unavailable Jewel Blount Attending Unavailabl e Jewel Blount Referring Unavailabl e Talampas, Fiorella D Primary Care Unavailable Allergies Allergy Classification Reported Allergen(s) Allergy Type Date of Onset Reaction(s) Facility (20 sources) atorvastatin; Translations: [ATORVASTATIN] Drug Allergy 1 Other: See Comments [facility] Comment on above: insomnia,headache,na usea (20 sources) DULoxetine; Translations: [DULOXETINE] Drug Allergy 0 Other [facility] Work Phone: Comment on above: insomnia (20 sources) Lisinopril; Translations: [LISINOPRIL] Drug Allergy 9 Cough [facility] Work Phone: Comment on above: cough with vomiting (20 sources) Losartan; Translations: [LOSARTAN] Drug Allergy 0 Cough [facility] Work Phone: (20 sources) Nizatidine; Translations: [NIZATIDINE] Drug Allergy 5 Hives [facility] Work Phone: (20 sources) sibutramine; Translations: [SIBUTRAMINE] Drug Allergy 5 Rash [facility] Work Phone: (20 sources) sulfabenzamide; Translations: [SULFABENZAMIDE] Drug Allergy 5 Intolerance [facility] Work Phone: (12 sources) Sulfonamides (Antibiotic) Allergy to substance 2 Rash, oral redness [facility] (1 source) atorvastatin Drug Allergy 5 [facility] (1 source) DULoxetine Drug Allergy 5 [facility] (1 source) Lisinopril Drug Allergy 5 [facility] (1 source) Losartan Drug Allergy 4 [facility] (1 source) Nizatidine Drug Allergy 5 [facility] (1 source) sibutramine Drug Allergy 5 [facility] (1 source) Sulfonamides (Antibiotic) Drug allergy (disorder) 5 [facility] (1 source) sulfabenzamide Drug allergy (disorder) 5 [facility] Medications Current Medications Medication Drug Class(es) Dates Sig (Normalized) Sig (Original) aspirin 81 mg delayed release oral tablet (20 sources) Platelet Aggregation Inhibitor, Nonsteroidal Anti-inflammatory Drug Start: 03-05-2024 take 1 tablet by mouth at breakfast Aspirin 81 mg Tablet,Delayed Release (Dr/Ec) Active 81 mg PO WITH BREAKFAST 0 March 05, 2024 12:00am Start: 08-25-2020 End: 04-11-2023 take 1 tablet by mouth once daily Aspirin 81 mg tablet,delayed release (DR/EC) Discontinued 81 mg PO DAILY March 28, 2022 1:00am April 11, 2023 9:33am Comment on above: Take 1 tablet by savanah th once daily. biotin 10 mg oral capsule (18 sources) Start: 11-06-2023 Biotin 10,000 mcg capsule Active 5000 ug PO DAILY November 06, 2023 12:00am Start: 08-31-2020 End: 03-28-2022 take 1 tablet by mouth once daily Biotin 10,000 MCG tablet,disintegrating Discontinued 93537 ug PO DAILY August 31, 2020 12:00am March 28, 2022 1:00pm Calcium Carbonate / vitamin D3 (20 sources) CALCIUM CARBONAT E/VITAMIN D3 (VITAMIN D-3 ORAL) Take by mouth. Active CALCIUM CARBONAT E/VITAMIN D3 (VITAMIN D-3 ORAL) Take by mouth. 0 Active Comment on above: Take by mouth. cholecalciferol 0.05 mg oral tablet (20 sources) Vitamin D Start: take 1 tablet by mouth once daily Cholecalciferol (Vitamin D3) 50 mcg (2,000 unit) tablet Active 4000 U PO DAILY April 11, 2022 3:13pm Start: 12-23-2019 Cholecalcifero l, Vitamin D3, 50 mcg (2,000 unit) cap Consider 4000 to 5000 IU daily 12/23/2019 Active Start: 12-29-2013 End: 04-11-2022 Cholecalciferol (Vitamin D3) 2,000 UNIT tablet Discontinued 3000 U PO DAILY December 29, 2013 12:00am April 11, 2022 3:15pm Start: 12-29-2013 End: 04-11-2022 take 3000 [IU] by mouth once daily Cholecalciferol (Vitamin D3) Discontinued 3000 UNIT PO DAILY December 28, 2013 11:00pm April 11, 2022 2:15pm Comment on above: Consider 4000 to 500 0 IU daily ciprofloxacin 500 mg oral tablet (1 source) Quinolone Antimicrobial Start: 01-30-20 End: 02-06-20 take 1 tablet by mouth twice daily ciprofloxacin HCl (CIPRO) 500 mg tablet Indications: Acute cystitis without hematuria Take 1 tablet by mouth two times a day for 7 days. 14 tablet 01/30/2024 02/06/2024 Active clopidogrel 75 mg oral tablet (13 sources) P2Y12 Platelet Inhibitor Start: 07-30-19 take 1 tablet by mouth once daily Clopidogrel (Plavix) 75 mg tablet Active 75 mg PO daily July 29, 2024 10:54am Start: 07-25-2024 End: 07-29-2024 take 2 tablets by mouth once daily Clopidogrel (Plavix) 75 mg tablet Discontinued 75 mg PO daily 93 July 25, 2024 12:00am July 29, 2024 10:55am 300mg PO on day 1, 75mg PO daily starting day two cobamamide 0.1 mg / vitamin b12 5 mg sublingual tablet (6 sources) Vitamin B12 Start: 11-06-2023 Cyanocobalamin-Cobamamide (B12) 5,000-100 mcg lozenge Active 1 NMA SL DAILY November 06, 2023 12:00am cyclobenzaprine hydrochloride 10 mg oral tablet (20 sources) Muscle Relaxant Start: 02-07-2024 take 1 tablet by mouth every twenty-fou r hours as needed cyclobenzaprine (FLEXERIL) 10 mg tablet Take 1 tablet by mouth at bedtime as needed for muscle spasm. 30 tablet 02/07/2024 Active Start: 08-31-2020 End: 03-28-2022 take 1 tablet by mouth once daily as needed for muscle spasms Cyclobenzaprine 10 MG tablet Discontinued 10 mg PO DAILY NEEDED as needed for muscle spasms August 31, 2020 12:00am March 28, 2022 1:00pm dicyclomine hydrochloride 10 mg oral capsule (20 sources) Anticholinergic Start: 05-01-2019 End: 02-03-2023 take 1 capsule by mouth four times daily at bedtime as needed for pain Dicyclomine 10 mg capsule Active 10 mg PO 4 TIMES DAILY as needed for abdominal pain March 28, 2022 1:00am take 1 capsule by mouth before meals and at bedtime as needed Comment on above: Take 1 capsule by mo cox branson before meals and at bedtime. As needed hydroCHLOROthiazide 25 mg oral tablet (20 sources) Thiazide Diuretic Start: 03-05-2024 take 1 tablet by mouth once daily Hydrochlorothiazide 25 mg Tablet Active 25 mg PO DAILY March 05, 2024 12:00am Start: 09-23-2020 End: 03-05-2024 take 1 tablet by mouth once daily Hydrochlorothiazide 50 mg tablet Discontinued 50 mg PO DAILY March 28, 2022 1:00am March 05, 2024 1:27pm Start: 08-31-2020 End: 03-28-2022 take 2 tablets by mouth once daily Hydrochlorothiazide 25 MG tablet Discontinued 50 mg PO DAILY August 31, 2020 12:00am March 28, 2022 12:52pm Start: 08-31-2020 End: 03-28-2022 take 50 mg by mouth once daily Hydrochlorothiazide Discontinued 50 MG PO DAILY August 30, 2020 11:00pm March 28, 2022 11:52am Comment on above: Take 1 tablet by savanah once daily. levothyroxine sodium 0.075 mg oral tablet (20 sources) l-Thyroxine Start: take 1 tablet by mouth once daily Levothyroxine 75 mcg tablet Active 75 ug PO DAILY March 02, 2024 12:00am Start: 11-06-2023 End: 03-02-2024 Levothyroxine 50 mcg capsule Discontinued 100 ug PO TUFR November 06, 2023 12:00am March 02, 2024 1:29pm Start: 02-03-2023 End: 03-02-2024 Levothyroxine 50 mcg tablet Discontinued 50 ug PO SUMOWETHSA November 06, 2023 12:00am March 02, 2024 1:28pm Start: 08-31-2020 End: 04-11-2023 Levothyroxine 75 MCG tablet Discontinued 37.5 ug PO August 31, 2020 12:00am April 11, 2023 9:33am Start: 08-31-2020 Levothyroxine Active 37.5 MCG PO August 30, 2020 11:00pm Start: 12-29-2013 End: 04-11-2023 Levothyroxine 75 MCG tablet Discontinued 75 ug PO SUMOTUWEFRSA December 29, 2013 12:00am April 11, 2023 9:33am Comment on above: Take 1 tablet by savanah th daily before breakfast. Except 1/2 tab Mon, Mon and Monday Take 1 tablet by savanah th daily before breakfast. Except 1/2 tab Take 1 pill by mouth daily 5 days per week and 2 pills daily 2 days per week LORazepam 0.5 mg oral tablet (20 sources) Benzodiazepine Start: take 1 tablet by mouth at bedtime as needed for sleep Lorazepam 0.5 mg tablet Active 0.5 mg PO AT BEDTIME as needed for sleep March 28, 2022 1:00am Start: 01-04-2021 End: 08-09-2025 LORazepam (ATIVAN) 0.5 mg In dications: Anxiety, generalized Take 1 at bedtime as needed 30 tablet 02/07/2024 08/09/2024 Discontinued Comment on above: Take 1 at bedtime as needed magnesium oxide 400 mg oral tablet (20 sources) Start: 02-03-2023 take 1 tablet by mouth once daily magnesium oxide (MAG-OX) 400 mg (241.3 mg magnesium) tablet Indications: Hypomagnesemia Take 1 tablet by mouth once daily. 02/03/2023 Active Start: 04-11-2022 End: 04-13-2022 take 1 tablet by mouth once daily Magnesium Oxide 400 mg magnesium tablet Discontinued 400 mg PO DAILY April 11, 2022 1:00am April 13, 2022 2:50pm Start: 06-28-2018 End: 02-03-2023 take 1 tablet [...] once daily. melatonin 5 mg oral tablet (20 sources) take 1 tablet by mouth once daily at bedtime melatonin 5 mg tablet Take 5 mg by mouth daily at bedtime. Active Comment on above: Take 5 mg by mouth d aily at bedtime. nirmatrelvir tablet 300 mg (150 mg x 2) and ritonavir tablet 100 mg in a dose pack (PAXLOVID) (1 source) Start: 03-04-20 End: 03-09-20 22 nirmatrelvir tablet 300 mg (150 mg x [...] a total of three tablets twice daily. nitroglycerin 0.4 mg sublingual tablet (2 sources) Nitrate Vasodilator Start: 10-24-19 25 Nitroglycerin (Nitrostat) 0.4 mg tablet, sublingual Active 0.4 mg SL every 5 to 15 minutes as needed for chest pain October 23, 2024 12:00am do not exceed 3 doses per episode omeprazole 40 mg delayed release oral capsule (20 sources) Proton Pump Inhibitor Start: 09-19-19 End: 07-21-19 23 take 1 capsule by mouth twice daily Omeprazole 40 mg capsule,delayed release(DR/EC) Active 40 mg PO TWICE A DAY March 28, 2022 1:00am Start: 12-29-2013 End: 03-28-2022 take 2 capsules by mouth once daily Omeprazole 20 MG capsule Discontinued 40 mg PO DAILY December 29, 2013 12:00am March 28, 2022 12:51pm Start: 12-29-2013 End: 03-28-2022 take 40 mg by mouth once daily Omeprazole Discontinued 40 MG PO DAILY December 28, 2013 11:00pm March 28, 2022 11:51am Comment on above: Take 1 capsule by mo ut twice daily before meals (0600/1600). ondansetron 4 mg disintegrating oral tablet (20 sources) Serotonin-3 Receptor Antagonist Start: 03-04-20 take 1 tablet by mouth every six hours as needed ondansetron orally disintegrating (ZOFRAN ODT) 4 mg disintegrating tablet Take 1 tablet by mouth every 6 hours as needed for nausea/vomiting. 30 tablet 03/04/2022 Active Comment on above: Take 1 tablet by savanah th every 6 hours as needed for nausea/vomiting. polyethylene glycol 3350 32572 mg powder for oral solution (20 sources) Osmotic Laxative polyethylene gl ycol 3350 17 gram/dose powder Take 17 g by mouth once daily. Dissolve dose in 4 - 8 ounces of liquid and take as directed. Active Comment on above: Take 17 g by mouth o nce daily. Dissolve dose in 4 - 8 ounces of liquid and take as directed. rosuvastatin calcium 10 mg oral tablet (20 sources) HMG-CoA Reductase Inhibitor Start: 10-24-19 take 1 tablet by mouth once daily Rosuvastatin (Crestor) 10 mg tablet Active 10 mg PO daily October 23, 2024 12:00am Start: 03-28-2022 End: 04-11-2023 take 1 tablet by mouth every other day Rosuvastatin 5 mg tablet Discontinued 5 mg PO every other day March 28, 2022 1:00am April 11, 2023 9:33am Start: 03-27-2021 End: 08-07-2023 take 1 tablet by mouth once daily at bedtime rosuvastatin (CRESTOR) 5 mg tablet Indications: Hyperlipemia, mixed Take 1 tablet by mouth daily at bedtime. 90 tablet 0 03/27/2021 08/07/2023 Discontinued (Other) Comment on above: Take 1 tablet by savanah th daily at bedtime. traMADol hydrochloride 50 mg oral tablet (16 sources) Opioid Agonist Start: 10-10-2024 Tramadol 50 mg tablet Active 50 mg PO 1 to 3 times daily as needed for pain October 10, 2024 12:00am Start: 08-17-2020 End: 03-28-2022 take 1-10 tablets by mouth once daily as needed for pain Tramadol 50 mg tablet Discontinued 50 mg PO DAILY NEEDED as needed for Pain 1-10 Or Fever August 17, 2020 12:00am March 28, 2022 1:01pm traZODone hydrochloride 100 mg oral tablet (20 sources) Serotonin Reuptake Inhibitor Start: 07-07-2020 End: 05-20-2024 take 1 tablet by mouth at bedtime Trazodone 100 mg tablet Active 100 mg PO AT BEDTIME August 17, 2020 12:00am Comment on above: Take 1 tablet by [...] 1 tablet by savanah th once daily. Completed/Discontinued Medications Medication Drug Class(es) Dates Sig (Normalized) Sig (Original) acetaminophen 325 mg oral tablet (12 sources) Start: 08-31-2020 End: 03-28-2022 take 1-10 tablets by mouth every six hours as needed for pain Acetaminophen 325 MG tablet Discontinued 325 mg PO EVERY 6 HOURS NEEDED as needed for Pain 1-10 Or Fever August 31, 2020 12:00am March 28, 2022 1:00pm acetaminophen 325 mg / HYDROcodone bitartrate 10 mg oral tablet (12 sources) Opioid Agonist Start: 09-02-2020 End: 04-11-2022 Hydrocodone-Acetami nophen 10-325 mg tablet Discontinued 1 {tbl} PO EVERY 6 HOURS as needed for pain 40 Isabelle 21st, 2021 November 28th, 2022 3:14pm Start: 09-02-2020 End: 04-11-2022 take 1 tablet by mouth every six hours Hydrocodone-Acetaminophen Discontinued 1 TABLET PO EVERY 6 HOURS September 02, 2020 April 11, 2022 2:14pm amoxicillin 875 mg oral tablet (6 sources) Penicillin-class Antibacterial Start: 10-08-2024 End: 10-23-2024 take 1 tablet by mouth twice daily Amoxicillin 875 mg tablet Discontinued 875 mg PO TWICE A DAY October 08, 2024 12:00am October 23, 2024 9:57am amoxicillin 875 mg / clavulanate 125 mg oral tablet (6 sources) Penicillin-class Antibacterial Start: 08-16-2023 End: 08-26-2023 Amoxicillin-Pot Clavulanate 875-125 mg tablet Discontinued 1 {tbl} PO Q12H 03 03August 16, 2023 12:00am August 25, 2023 12:00am August 26, 2023 12:19am benzonatate 200 mg oral capsule (10 sources) Non-narcotic Antitussive Start: 03-19-2024 End: 08-16-2024 take 1 capsule by mouth three times daily as needed for cough Benzonatate 200 mg capsule Discontinued 200 mg PO THREE TIMES A DAY as needed for cough March 19, 2024 1:00am August 16, 2024 11:00am Start: 03-04-2022 End: 07-20-2022 take 1 capsule by mouth every eight hours as needed benzonatate (TESSALON PERLES) 100 mg capsule Take 1 capsule by mouth three times daily as needed for cough. 30 capsule 0 03/04/2022 07/20/2022 Discontinued Comment on above: Take 1 capsule by mo cox branson three times daily as needed for cough. 24 hr buPROPion hydrochloride 150 mg extended release oral tablet (20 sources) Aminoketone Start: 07-20-2021 End: 04-11-2023 Bupropion Hcl 150 mg tablet extended release 24 hr Discontinued 150 mg PO DAILY April 11, 2022 3:10pm April 11, 2023 9:31am Take 150 mg in addition to 300 mg tablet to = 450 mg daily Start: 07-07-2020 End: 07-20-2022 take 1 tablet by mouth once daily Bupropion Hcl 300 mg tablet extended release 24 hr Discontinued 300 mg PO DAILY August 17, 2020 12:00am April 11, 2022 3:15pm Comment on above: Take 1 tablet by savanah th once daily. Add to Wellbutrin XL 300 mg dose Take 1 tablet by savanah th once daily. With 150mg dose Take 1 tablet by savanah th once daily. calcium carbonate 1500 mg / cholecalciferol 0.01 mg oral tablet (9 sources) Vitamin D Start: 03-28-2022 End: 04-13-2022 Calcium Carbonate-Vitamin D3 600 mg-10 mcg (400 unit) tablet Discontinued 1 {tbl} PO DAILY March 28, 2022 1:00am April 13, 2022 2:49pm Start: 03-28-2022 End: 04-13-2022 take 1 tablet by mouth once daily Calcium Carbonate-Vitamin D3 Discontinued 1 TABLET PO DAILY March 28, 2022 12:00am April 13, 2022 1:49pm carvedilol 3.125 mg oral tablet (20 sources) alpha-Adrenergic Damián, beta-Adrenergic Damián Start: 03-05-2024 End: 04-04-2024 take 1 tablet by mouth twice daily Carvedilol 3.125 mg tablet Discontinued 3.125 mg PO TWICE A DAY 180 March 08, 2024 9:53am April 04, 2024 9:44am FA/MV,CA,IRON,MIN /LYCOPENE/LUT (MULTIVITAL ORAL) (10 sources) End: 07-20-2022 FA/MV,CA,IRON,MIN/ LYCOPENE/LUT (MULTIVITAL ORAL) Take by mouth. 0 07/20/2022 Discontinued FA/MV,CA,IRON,VT N/LYCOPENE/LUT (MULTIVITAL ORAL) Take by mouth. 0 Active Comment on above: Take by mouth. gabapentin 100 mg oral capsule (13 sources) Anti-epileptic Agent Start: 01-04-2021 End: 07-20-2021 take 1 capsule by mouth once daily at bedtime gabapentin (NEURONTIN) 100 mg capsule Indications: Primary osteoarthritis involving multiple joints , Sciatica Take 1 capsule by mouth daily at bedtime. (Dr. Gaffney) 0 01/04/2021 07/20/2021 Discontinued (Other) Start: 12-29-2013 End: 03-28-2022 Gabapentin 300 MG capsule Discontinued 1000 mg PO AT BEDTIME December 29, 2013 12:00am March 28, 2022 1:00pm Start: 12-29-2013 End: 03-28-2022 take 1000 mg by mouth at bedtime Gabapentin Discontinued 1000 MG PO AT BEDTIME December 28, 2013 11:00pm March 28, 2022 12:00pm Comment on above: Take 1 capsule by mo cox branson daily at bedtime. (Dr. Gaffney) losartan potassium 50 mg oral tablet (20 sources) Angiotensin 2 Receptor Damián Start: End: 4 take 1 tablet by mouth once daily Losartan 50 mg tablet Discontinued 50 mg PO DAILY March 08, 2024 9:53am April 04, 2024 9:44am meloxicam 15 mg oral tablet (20 sources) Nonsteroidal Anti-inflammatory Drug Start: 8 End: 2 take 2 tablets by mouth once daily as needed Meloxicam 7.5 MG tablet Discontinued 15 mg PO DAILY NEEDED as needed for inflamation April 25, 2018 1:00am March 28, 2022 1:00pm Start: 04-25-2018 End: 03-28-2022 take 15 mg by mouth once daily as needed Meloxicam Discontinued 15 MG PO DAILY NEEDED April 25, 2018 12:00am March 28, 2022 12:00pm Start: 06-20-2016 End: 10-23-2024 take 1 tablet by mouth once daily Meloxicam 15 mg tablet Discontinued 15 mg PO DAILY March 02, 2024 12:00am October 23, 2024 9:58am On Hold: Would recommend discontinuing this while you are on aspirin and Plavix due to increased risk of bleeding. Would avoid all NSAIDs Comment on above: Take 1 tablet by savanah once daily as needed. (Dr. Gaffney) polyethylene glycol 3350 135116 mg / potassium chloride 2970 mg / sodium bicarbonate 6740 mg / sodium chloride 5860 mg / sodium sulfate 96113 mg powder for oral solution (1 source) [...] to printed prep instructions from your provider. pravastatin sodium 40 mg oral tablet (20 sources) HMG-CoA Reductase Inhibitor Start: 03-05-20 End: 10-24-19 take 1 tablet by mouth at bedtime Pravastatin 40 mg tablet Discontinued 40 mg PO AT BEDTIME March 08, 2024 9:53am April 04, 2024 9:44am promethazine hydrochloride 25 mg oral tablet (20 sources) Phenothiazine Start: 03-06-20 End: 04-11-20 Promethazine 12.5 mg suppository Discontinued 12.5 mg RC THREE TIMES A DAY as needed for nausea and vomiting March 06, 2022 12:00am April 11, 2022 3:14pm do not give 3rd daily dose after evening meal or within 4hr before bed Start: 03-06-2022 End: 04-11-2022 take 1 tablet by mouth three times daily as needed for nausea and vomiting Promethazine 25 mg tablet Discontinued 25 mg PO THREE TIMES A DAY as needed for nausea and vomiting March 06, 2022 12:00am April 11, 2022 3:14pm sucralfate 1000 mg oral tablet (6 sources) Aluminum Complex Start: 11-13-2023 End: 03-02-2024 take 1 tablet by mouth four times daily 1 hour(s) before bedtime Sucralfate 1 gram tablet Discontinued 1 g PO 4 TIMES DAILY November 13, 2023 12:00am March 02, 2024 1:29pm Take 1 hour before lunch and dinner and at bedtime ticagrelor 90 mg oral tablet (19 sources) Start: 03-05-2024 End: 08-09-2024 take 1 tablet by mouth twice daily Ticagrelor (Brilinta) 90 mg tablet Discontinued 90 mg PO TWICE A DAY March 08, 2024 9:53am July 25, 2024 10:00am Vitamin B Complex (Vitamins B Complex) tablet (9 sources) Start: 03-28-2022 End: 04-13-2022 Vitamin B Complex (Vitamins B Complex) tablet Discontinued 1 {tbl} PO DAILY March 28, 2022 1:00am April 13, 2022 2:50pm Start: 03-28-2022 End: 04-13-2022 take 1 tablet by mouth once daily Vitamin B Complex (Vitamins B Complex) tablet Discontinued 1 TABLET PO DAILY March 28, 2022 1:00am April 13, 2022 2:50pm Start: 03-28-2022 End: 04-13-2022 take 1 tablet by mouth once daily Vitamin B Complex (Vitamins B Complex) tablet Discontinued 1 TABLET PO DAILY March 28, 2022 12:00am April 13, 2022 1:50pm vitamin b12 0.5 mg oral tablet (12 sources) Vitamin B12 Start: 08-31-2020 End: 03-28-2022 take 1 tablet by mouth once daily Cyanocobalamin (Vitamin B-12) 500 MCG tablet Discontinued 500 ug PO DAILY@0800 August 31, 2020 12:00am March 28, 2022 1:00pm 100 ml zoledronic acid 0.05 mg/ml injection (8 sources) Bisphosphonate Start: 04-03-2024 End: 04-03-2024 5 mg, INTRAVENOUS, at 400 mL/hr, Administer over 15 Minutes, ONCE, 1 dose, On Mon04/03/24 at 1000, Hazardous Potential Reproductive Risk Drug: Use appropriate PPE. Start: 04-01-2024 End: 05-01-2024 zoledronic acid 5 mg PREMIX piggyback (RECLAST) Start: 04-19-2023 End: 03-29-2023 zoledronic acid 5 mg PREMIX piggyback (RECLAST) Start: 04-19-2023 End: 05-19-2023 zoledronic acid 5 mg PREMIX piggyback (RECLAST) Problems Active Problems Problem Classification Problem Date Documented Da te Episodic/Chronic Anxiety disorders (20 sources) Generalized anxiety disorder; Translations: [Generalized anxiety disorder] Onset: 0 06-13-2019 Chronic Coronary atherosclerosis and other heart disease (20 sources) Coronary arteriosclerosis; Translations: [Atherosclerotic heart disease of kake coronary artery without angina pectoris] Onset: 4 03-15-2024 Chronic Coronary atherosclerosis and other heart disease (16 sources) Stented coronary artery; Translations: [Presence of coronary angioplasty implant and graft] Onset: 4 03-04-2024 Episodic Comment on above: Nakul [place] EZEKIEL 3. 0 X 22 to mid RCA 03/04/2024 Diabetes mellitus without complication (3 sources) Impaired fasting glycemia; Translations: [Impaired fasting glucose] [...] Episodic Immunizations and screening for infectious disease (12 sources) Patient encounter status; Translations: [Encounter for immunization] Episodic Malaise and fatigue (6 sources) Asthenia; Translations: [Weakness] 04-19-2024 Episodic Miscellaneous mental health disorders (20 sources) Psychophysiologic insomnia; Translations: [Psychophysiologic insomnia] Onset: 0 06-13-2019 Chronic Mood disorders (20 sources) Recurrent major depressive episodes, moderate ; Translations: [Major depressive disorder, recurrent, moderate] 06-13-2019 Chronic Nonmalignant breast conditions (20 sources) Fibrocystic disease of breast; Translations: [Diffuse cystic mastopathy of unspecified breast] 03-29-2005 Chronic Nonspecific chest pain (12 sources) Chest pain; Translations: [Chest pain, unspecified] Onset: 4 03-13-2024 Episodic Nutritional deficiencies (20 sources) Vitamin D deficiency; Translations: [Vitamin D deficiency, unspecified] Onset: 8 06-09-2015 Chronic Occlusion or stenosis of precerebral arteries (4 sources) Right carotid artery stenosis; Translations: [Occlusion and stenosis of right carotid artery] Onset: 4 Chronic Open wounds of extremities (9 sources) Tear of skin; Translations: [Laceration without foreign body, right lower leg, initial encounter] 11-14-2022 Episodic Osteoarthritis (20 sources) Degenerative joint disease involving multiple joints; Translations: [Polyosteoarthritis, unspecified] 03-29-2005 Chronic Osteoporosis (1 source) Senile osteoporosis; Translations: [Age-related osteoporosis without current pathological fracture] 02-07-2024 Chronic Other acquired deformities (6 sources) Scoliosis of lumbar spine; Translations: [Scoliosis, unspecified] 10-10-2024 Chronic Other acquired deformities (18 sources) Lumbar spondylolisthesis; Translations: [Spondylolisthesis, lumbar region] 08-16-2024 Episodic Other acquired deformities (1 source) Spondylolisthesis, lumbar region; Translations: [Spondylolisthesis, lumbar region] Onset: Episodic Other aftercare (1 source) Long-term current use of drug therapy; Translations: [Other terminal carman (current) drug therapy] 02-07-2024 Episodic Other aftercare (1 source) Other terminal carman (current) drug therapy; Translations: [Encounter for long-term current use of medication] Onset: 5 Episodic Other bone disease and musculoskeletal deformities (6 sources) Osteopenia; Translations: [Other specified disorders of bone density and structure, unspecified site] 10-10-2024 Episodic Other circulatory disease (20 sources) Disorder of carotid artery; Translations: [Disorder of arteries and arterioles, unspecified] Onset: 3 02-03-2023 Chronic Other circulatory disease (3 sources) Disorder of arteries and arterioles, unspecified; Translations: [Unspecified disorders of arteries and arterioles] Onset: Chronic Other circulatory disease (1 source) History of angioplasty; Translations: [Peripheral vascular angioplasty status with implants and grafts] 03-15-2024 Chronic Other connective tissue disease (1 source) Chronic pain of right foot; Translations: [Pain in right foot] 08-09-2024 Episodic Other connective tissue disease (1 source) Calcaneal spur of right foot; Translations: [Calcaneal spur, right foot] 08-09-2024 Episodic Other gastrointestinal disorders (20 sources) Irritable bowel syndrome; Translations: [Irritable bowel syndrome without diarrhea] 03-29-2005 Chronic Other lower respiratory disease (1 source) Shortness of breath; Translations: [Shortness of breath] Onset: 3 Episodic Other non-traumatic joint disorders (1 source) Chronic ankle pain; Translations: [Pain in right ankle and joints of right foot] 08-09-2024 Episodic Other non-traumatic joint disorders (12 sources) Ankle pain; Translations: [Pain in right ankle and joints of right foot] 08-05-2024 Episodic Other nutritional; endocrine; and metabolic disorders (20 sources) Obesity; Translations: [Obesity, unspecified] Resolved: 2 03-28-2022 Chronic Other nutritional; endocrine; and metabolic disorders (2 sources) Hypomagnesemia; Translations: [Hypomagnesemia] 02-03-2023 Chronic Other nutritional; endocrine; and metabolic disorders (1 source) Hypomagnesemia; Translations: [Hypomagnesemia] Onset: 5 Chronic Other upper respiratory disease (20 sources) Allergic rhinitis; Translations: [Allergic rhinitis, unspecified] 03-29-2005 Chronic Other upper respiratory infections (12 sources) Acute sinusitis; Translations: [Acute sinusitis, unspecified] 08-16-2023 Episodic Residual codes; unclassified (3 sources) Disturbance in sleep behavior; Translations: [Sleep disorder, unspecified] Episodic Residual codes; unclassified (1 source) Postmenopausal state; Translations: [Asymptomatic menopausal state] 02-03-2023 Episodic Residual codes; unclassified (6 sources) History of lumbar laminectomy; Translations: [Other specified postprocedural states] 10-10-2024 Episodic Spondylosis; intervertebral disc disorders; other back problems (12 sources) Degeneration of lumbar intervertebral disc; Translations: [Degeneration of intervertebral disc of lumbar region] 08-16-2024 Chronic Spondylosis; intervertebral disc disorders; other back problems (20 sources) Sciatica; Translations: [Sciatica, unspecified side] Onset: 8 10-06-2005 Episodic Sprains and strains (20 sources) Injury of wrist; Translations: [Strain of unspecified muscle, fascia and tendon at wrist and hand level, right hand, initial encounter] Episodic Thyroid disorders (20 sources) Hypothyroidism; Translations: [Hypothyroidism, unspecified] Onset: 6 06-09-2015 Chronic Unclassified (1 source) Same Day Appointment Onset: 4 Unclassified (1 source) Low back pain, unspecified; Translations: [Low back pain, unspecified] Onset: Urinary tract infections (1 source) Acute cystitis; Translations: [Acute cystitis without hematuria] 01-30-2024 Episodic Varicose veins of lower extremity (2 sources) Varicose veins of lower extremity; Translations: [Varicose veins of bilateral lower extremities with other complications] Episodic Viral infection (10 sources) Disease caused by 2019-nCoV; Translations: [COVID-19] Episodic Past or Other Problems Problem Classification Problem Date Documented Da te Episodic/Chronic Abdominal pain (20 sources) Right lower quadrant pain; Translations: [Right lower quadrant pain] Onset: 06-13-2019 06-13-2019 Episodic Noninfectious gastroenteritis (20 sources) Noninfective gastroenteritis and colitis, unspecified; Translations: [Other and unspecified noninfectious gastroenteritis and colitis] Onset: 04-09-2014 Episodic Other and unspecified benign neoplasm (20 [...] Onset: 01-14-2014 05-10-2021 Episodic Other gastrointestinal disorders (20 sources) Constipation; Translations: [Constipation, unspecified] Onset: 11-28-2022 Episodic Other non-traumatic joint disorders (1 source) Pain in right ankle and joints of right foot; Translations: [Pain in right ankle and joints of right foot] Onset: 08-05-2024 Episodic Other screening for suspected conditions (not mental disorders or infectious disease) (8 sources) Encounter for screening mammogram for malignant neoplasm of breast; Translations: [Cardiovascular stress test abnormal] Onset: 03-05-2024 03-13-2024 Episodic Syncope (16 sources) Vasovagal symptom; Translations: [Syncope and collapse] Onset: 05-20-2024 03-15-2022 Episodic Results Test Name Value Interpretation Reference Range Facility Bilirubin directOrdered By: Jewel Blount on 10-23-2024 Bilirubin.direct [Mass/Vol] 0.21 mg/dL 0.00-0.30 [facility] Bilirubin, totalOrdered By: Jewel Blount on 10-23-2024 Bilirubin [Mass/Vol] 0.43 mg/dL 0.00-1.30 [facility] Calculated very low density lipoprotein (VLDL) cholesterol measurementOrdered By: Jewel Blount on 10-23-2024 Calculated very low density lipoprotein (VLDL) cholesterol measurement 20 mg/dL 5-40 [facility] Cardiology Visit Reporton Cardiology Visit Report Normal [facility] LDL calc ser/plasOrdered By: Jewel Blount on 10-23-2024 Cholesterol in LDL [Mass/Vol] 90 mg/dL [facility] Comment on above: Qgycidwrws=360-368 m g/dL & Higher Mxar=451 mg/dL or greater Laboratory - Chemistry and C hemistry - challengeOrdered By: Jeewl Blount on 10-23-2024 AST [Catalytic activity/Vol] 22 U/L <32 [facility] Lipid Profileon 10-23-2024 CHOL:HDL 2.55 Normal [facility] Comment on above: Performed By: #### L 500.4100, L500.3400 ####[facility] [address] [place], [place], [id number] Cholesterol [Mass/Vol] 181 mg/dL Normal <=200 [facility] Comment on above: Result Comment: Chol esterol level, Desirable <200 mg/dLBorderline high cholesterol 200-239 mg/dLHigh cholesterol >=240 mg/dLRecommendations of the NCEP Adult Treatment Panel for thefollowing risk-cutoff thresholds for the [place] Americanpopulation. Performed By: #### L 500.4100, L500.3400 ####[facility] [address] [place], [place], [id number] Cholesterol in HDL [Mass/Vol] 71 mg/dL Normal [facility] Comment on above: Result Comment: [place] onal Cholesterol Education Program (NCEP) guidelines:<40 mg/dL: Low HDL-cholesterol (major risk factor for CHD)>= 60 mg/dL: High HDL-cholesterol (negative risk factor forCHD)HDL-cholesterol is affected by a number of factors, e.g.smoking, exercise, hormones, sex and age. Performed By: #### L 500.4100, L500.3400 ####[facility] [address] [place], [address] Cholesterol in LDL [Mass/Vol] 90 mg/dL Normal [facility] Comment on above: Result Comment: Bord rldwiw=292-157 mg/dL Higher Njoa=065 mg/dL or greater Performed By: #### L 500.4100, L500.3400 ####[facility] [address] [place], [address] Cholesterol in VLDL [Mass/Vol] 20 mg/dL Normal 5-40 [facility] Comment on above: Performed By: #### L 500.4100, L500.3400 ####[facility] [address] [place], [address] Triglyceride [Mass/Vol] 100 mg/dL Normal [facility] Comment on above: Result Comment: The drugs N-Acetylcysteine and Metamizole may falselydepress this assay.Normal range: <150 mg/dLBorderline High: 150-199 mg/dLHigh: 200-499 mg/dLVery High: >500 mg/dL Performed By: #### L 500.4100, L500.3400 ####[facility] [address] [place], [address] Liver Profileon 10-23-2024 Albumin [Mass/Vol] 4.1 g/dL Normal 3.4-4.8 [facility] Comment on above: Performed By: #### L 500.4100, L500.3400 ####[facility] [address] [place], [address] ALK PHOS 60 U/L Normal 35-104 [facility] Comment on above: Performed By: #### L 500.4100, L500.3400 ####[facility] [address] [place], [address] ALT [Catalytic activity/Vol] 12 U/L Normal <=34 [facility] Comment on above: Performed By: #### L 500.4100, L500.3400 ####[facility] [address] [place], [address] AST [Catalytic activity/Vol] 22 U/L Normal <=31 [facility] Comment on above: Performed By: #### L 500.4100, L500.3400 ####[facility] [address] [place], [address] Bilirubin [Mass/Vol] 0.43 mg/dL Normal 0.00-1.30 [facility] Comment on above: Performed By: #### L 500.4100, L500.3400 ####[facility] [address] [place], [address] Bilirubin.direct [Mass/Vol] 0.21 mg/dL Normal 0.00-0.30 [facility] Comment on above: Performed By: #### L 500.4100, L500.3400 ####[facility] [address] [place], [address] Globulin (S) [Mass/Vol] 2.5 g/dL Normal 2.2-4.2 [facility] Comment on above: Performed By: #### L 500.4100, L500.3400 ####[facility] [address] [place], [address] T PROT 6.5 g/dL Normal 5.9-8.4 [facility] Comment on above: Performed By: #### L 500.4100, L500.3400 ####[facility] [address] [place], [address] Screening total cholesterol/ high density lipoprotein (HDL) cholesterol ratioOrdered By: Jewel Blount on 10-23-2024 Cholesterol.total/Chol esterol in HDL [Mass ratio] 2.55 {ratio} [facility] Serum globulin measurementOr dered By: Jewel Blount on 10-23-2024 Globulin (S) [Mass/Vol] 2.5 g/dL 2.2-4.2 [facility] Serum or plasma alanine cagle otransferase (ALT) measurementOrdered By: Jewel Blount on 10-23-2024 ALT [Catalytic activity/Vol] 12 U/L <35 [facility] Serum or plasma albumin irving urement (mass/volume)Ordered By: Jewel Blount on 10-23-2024 Albumin [Mass/Vol] 4.1 g/dL 3.4-4.8 [facility] Serum or plasma alkaline tamara sphatase measurementOrdered By: Jewel Blount on 10-23-2024 ALP [Catalytic activity/Vol] 60 U/L 35-104 [facility] Serum or plasma cholesterol in HDL measurement (mass/volume)Ordered By: Jewel Blount on 10-23-2024 Cholesterol in HDL [Mass/Vol] 71 mg/dL >40 [facility] Comment on above: National Cholesterol Education Program (NCEP) guidelines:<40 mg/dL: Low HDL-cholesterol (major risk factor for CHD)>= 60 mg/dL: High HDL-cholesterol (negative risk factor for CHD)HDL-cholesterol is affected by a number of factors, e.g. smoking, exercise, hormones, sex and age. Serum or plasma cholesterol measurement (mass/volume)Ordered By: Jewel Blount on 10-23-2024 Cholesterol [Mass/Vol] 181 mg/dL <201 [facility] Comment on above: Cholesterol level, D esirable <200 mg/dLBorderline high cholesterol 200-239 mg/dLHigh cholesterol >=240 mg/dLRecommendations of the NCEP Adult Treatment Panel for the following risk-cutoff thresholds for the [place] population. Total proteinOrdered By: Oliver Blount on 10-23-2024 Protein [Mass/Vol] 6.5 g/dL 5.9-8.4 [facility] Triglycerides measurementOrd ered By: Jewel Blount on 10-23-2024 Triglyceride [Mass/Vol] 100 mg/dL <199 [facility] Comment on above: The drugs N-Acetylcy steine and Metamizole may falsely depress this assay. Normal range: <150 mg/dLBorderline High: 150-199 mg/dLHigh: 200-499 mg/dLVery High: >500 mg/dL 12 Lead EKGon 10-18-2024 12 Lead EKG Normal [facility] Absolute lymphocyte countOrd ered By: Yudith Roman on 10-18-2024 Lymphocytes Auto (Unsp spec) [#/Vol] 2.81 10*3/uL 0.83-4.51 [facility] Absolute neutrophil countOrd ered By: Yudith Roman on 10-18-2024 Neutrophils (Bld) [#/Vol] 3.6 10*3/uL 2.0-7.7 [facility] Anion gap in Serum or Plasma Ordered By: Yudith Roman on 10-18-2024 Anion gap [Moles/Vol] 12 mmol/L 5-15 [facility] Automated blood erythrocyte countOrdered By: Yudith Roman on 10-18-2024 RBC (Bld) [#/Vol] 4.26 10*6/uL Normal 4.2-5.4 [facility] Comment on above: Performed By: #### L 501.4021, L100.0100, L500.2500 ####[facility] [address] [place], [place], [id number] Automated blood hematocrit ( percentage)Ordered By: Yudith Roman on 10-18-2024 Hematocrit (Bld) [Volume fraction] 39.5 % Normal 37-47 [facility] Comment on above: Performed By: #### L 501.4021, L100.0100, L500.2500 ####[facility] [address] [place], [place], [id number] Automated lymphocyte count a s percentage of total leukocytesOrdered By: Yudith Roman on 10-18-2024 Lymphocytes/100 WBC Auto (Unsp spec) 38.1 % 19-41 [facility] BUN/creatinine ratioOrdered By: Yudith Roman on 10-18-2024 Urea nitrogen/Creatinine [Mass ratio] 17.6 mg/mg 10-20 [facility] Basic Metabolic Profile (BMP )on 10-18-2024 BUN/CRE 17.6 RATIO Normal 10-20 [facility] Comment on above: Performed By: #### L 501.4021, L100.0100, L500.2500 ####[facility] [address] [place], [address] ECRCL 47.05 ml/min Low 50-250 [facility] Comment on above: Performed By: #### L 501.4021, L100.0100, L500.2500 ####[facility] [address] [place], [address] GAP 12 Normal 5-15 [facility] Comment on above: Performed By: #### L 501.4021, L100.0100, L500.2500 ####[facility] [address] [place], [address] Potassium [Moles/Vol] 4.3 mmol/L Normal 3.3-5.1 [facility] Comment on above: Performed By: #### L 501.4021, L100.0100, L500.2500 ####[facility] [address] [place], [address] Basophil percentageOrdered B y: Yudith Roman on 10-18-2024 Basophils/100 WBC (Bld) 0.9 % Normal 0-1 [facility] Comment on above: Performed By: #### L 501.4021, L100.0100, L500.2500 ####[facility] [address] [place], [address] CBC W/Diff, Automatedon 06- Absolute Lymph 2.81 X10 3/uL Normal 0.83-4.51 [facility] Comment on above: Performed By: #### L 501.4021, L100.0100, L500.2500 ####[facility] [address] [place], [address] Absolute Neut 3.6 X10 3/uL Normal 2.0-7.7 [facility] Comment on above: Performed By: #### L 501.4021, L100.0100, L500.2500 ####[facility] [address] [place], [address] IG% 0.400 Normal 0.0-0.9 [facility] Comment on above: Result Comment: IG% - Immature Granulocytes (promyelocytes, myelocytes andmetamyelocytes) > 1% indicates that a LEFT SHIFT is Present. Performed By: #### L 501.4021, L100.0100, L500.2500 ####[facility] [address] [place], [address] Lymphocytes/100 WBC (Bld) 38.1 % Normal 19-41 [facility] Comment on above: Performed By: #### L 501.4021, L100.0100, L500.2500 ####[facility] [address] [place], [address] Nucleated RBC (Bld) [#/Vol] 0 10*3/uL Normal 0-5 [facility] Comment on above: Performed By: #### L 501.4021, L100.0100, L500.2500 ####[facility] [address] [place], [address] RDW SD 43.7 fl Normal 35.1-43.9 [facility] Comment on above: Performed By: #### L 501.4021, L100.0100, L500.2500 ####[facility] [address] [place], [address] Carbon dioxide, total [Moles /volume] in Central venous bloodOrdered By: Yudith Roman on 10-18-2024 CO2 [Moles/Vol] 23.9 mmol/L Normal 21.0-32.0 [facility] Comment on above: Performed By: #### L 501.4021, L100.0100, L500.2500 ####[facility] [address] [place], [address] Chest PA and Lateralon 10-18 Chest PA and Lateral Normal [facility] Chloride assayOrdered By: Mariah Roman on 10-18-2024 Chloride [Moles/Vol] 99 mmol/L Normal 98-108 [facility] Comment on above: Performed By: #### L 501.4021, L100.0100, L500.2500 ####[facility] [address] [place], [place], [id number] Emergency Department Summary on 10-18-2024 Emergency Department Summary Normal [facility] Eosinophil percentageOrdered By: Yudith Roman on 10-18-2024 Eosinophils/100 WBC (Bld) 2.2 % Normal 0-5 [facility] Comment on above: Performed By: #### L 501.4021, L100.0100, L500.2500 ####[facility] [address] [place], [address] Erythrocyte distribution wid th ratioOrdered By: Yudith Roman on 10-18-2024 Erythrocyte distribution width (RBC) [Ratio] 12.8 % Normal 11.6-14.6 [facility] Comment on above: Performed By: #### L 501.4021, L100.0100, L500.2500 ####[facility] [address] [place], [address] Erythrocyte distribution wid th standard deviationOrdered By: Yudith Roman on 10-18-2024 Erythrocyte distribution width (RBC) [Ratio] 43.7 fl 35.1-43.9 [facility] Glomerular filtration rate ( GFR) estimation/1.73 sq m using serum, plasma, or whole bOrdered By: Yudith Roman on 10-18-2024 GFR/1.73 sq M.predicted among non-blacks MDRD (S/P/Bld) [Vol rate/Area] 63 mL/min/{1.73_m2} Normal >60 [facility] Comment on above: mL/min/1.73m2 CKD-EP I Creatinine Equation (2020) Result Comment: mL/m in/1.73m2 CKD-EPI Creatinine Equation (2020) Performed By: #### L 501.4021, L100.0100, L500.2500 ####[facility] [address] [place], [place], [id number] Hemoglobin measurementOrdere d By: Yudith Roman on 10-18-2024 Hemoglobin (Bld) [Mass/Vol] 13.4 g/dL Normal 12.0-15.0 [facility] Comment on above: Performed By: #### L 501.4021, L100.0100, L500.2500 ####[facility] [address] [place], [place], [address] Immature granulocytes/100 WB C Auto (Bld)Ordered By: Yudith Roman on 10-18-2024 Immature granulocytes/100 WBC (Bld) 0.400 % 0.0-0.9 [facility] Comment on above: IG% - Immature Granu locytes (promyelocytes, myelocytes and metamyelocytes) > 1% indicates that a LEFT SHIFT is Present. L499.0042on 10-18-2024 Trop T High Sen 10 ng/L Normal <=14 [facility] Comment on above: Performed By: #### L 499.0042 ####[facility] [address] [place], [place], [address] L501.4021on 10-18-2024 Trop T High Sen 12 ng/L Normal <=14 [facility] Comment on above: Performed By: #### L 501.4021, L100.0100, L500.2500 ####[facility] [address] [place], [address] MCV (mean corpuscular volume ) determinationOrdered By: Yudith Roman on 10-18-2024 MCV (RBC) [Entitic vol] 92.7 fL Normal 81-99 [facility] Comment on above: Performed By: #### L 501.4021, L100.0100, L500.2500 ####[facility] [address] [place], [address] Mean corpuscular hemoglobin (MCH) determinationOrdered By: Yudith Roman on 10-18-2024 MCH (RBC) [Entitic mass] 31.5 pg Normal 27.0-32.0 [facility] Comment on above: Performed By: #### L 501.4021, L100.0100, L500.2500 ####[facility] [address] [place], [address] Mean corpuscular hemoglobin concentration (MCHC) determinationOrdered By: Yudith Roman on 10-18-2024 MCHC (RBC) [Mass/Vol] 33.9 g/dL Normal 32-36 [facility] Comment on above: Performed By: #### L 501.4021, L100.0100, L500.2500 ####[facility] [address] [place], [address] Mean platelet volume determi nationOrdered By: Yudith Roman on 10-18-2024 Platelet mean volume (Bld) [Entitic vol] 9.6 fL Normal 6.2-12.0 [facility] Comment on above: Performed By: #### L 501.4021, L100.0100, L500.2500 ####[facility] [address] [place], [address] Monocyte percentageOrdered B y: Yudith Roman on 10-18-2024 Monocytes/100 WBC (Bld) 10.0 % Normal 0-10 [facility] Comment on above: Performed By: #### L 501.4021, L100.0100, L500.2500 ####[facility] [address] [place], [address] Neutrophil percentageOrdered By: Yudith Roman on 10-18-2024 Neutrophils/100 WBC (Bld) 48.4 % Normal 47-70 [facility] Comment on above: Performed By: #### L 501.4021, L100.0100, L500.2500 ####[facility] [address] [place], [address] Nucleated red blood cell per centageOrdered By: Yudith Roman on 10-18-2024 Nucleated RBC/100 WBC (Bld) [Ratio] 0 % 0-5 [facility] Platelet countOrdered By: Mariah Roman on 10-18-2024 Platelets (Bld) [#/Vol] 309 10*3/uL Normal 150-450 [facility] Comment on above: Performed By: #### L 501.4021, L100.0100, L500.2500 ####[facility] [address] [place], [address] Potassium measurement (mass/ volume)Ordered By: Yudith Roman on 10-18-2024 Potassium (Unsp spec) [Mass/Vol] 4.3 mmol/L 3.3-5.1 [facility] Serum creatinine measurement (mass/volume)Ordered By: Yudith Roman on 10-18-2024 Creatinine [Mass/Vol] 0.95 mg/dL Normal 0.70-1.20 [facility] Comment on above: Performed By: #### L 501.4021, L100.0100, L500.2500 ####[facility] [address] [place], [address] Serum glucose measurement (m ass/volume)Ordered By: Yudith Roman on 10-18-2024 Glucose [Mass/Vol] 103 mg/dL High 70-99 [facility] Comment on above: Performed By: #### L 501.4021, L100.0100, L500.2500 ####[facility] [address] [place], [address] Serum or plasma calcium irving urement (mass/volume)Ordered By: Yudith Roman on 10-18-2024 Calcium [Mass/Vol] 9.4 mg/dL Normal 7.6-11.0 [facility] Comment on above: Performed By: #### L 501.4021, L100.0100, L500.2500 ####[facility] [address] [place], [address] Serum or plasma urea nitroge n measurement (mass/volume)Ordered By: Yudith Roman on 10-18-2024 Urea nitrogen [Mass/Vol] 17 mg/dL Normal 4-19 [facility] Comment on above: Performed By: #### L 501.4021, L100.0100, L500.2500 ####[facility] [address] [place], [address] Sodium levelOrdered By: Denys Roman on 10-18-2024 Sodium [Moles/Vol] 135 mmol/L Normal 133-145 [facility] Comment on above: Performed By: #### L 501.4021, L100.0100, L500.2500 ####[facility] [address] [place], [address] Troponin T.cardiac [Mass/vol ume] in Serum or Plasma by High sensitivity methodOrdered By: Yudith Roman on 10-18-2024 Troponin T.cardiac High sensitivity method [Mass/Vol] 10 ng/L <14 [facility] Troponin T.cardiac High sensitivity method [Mass/Vol] 12 ng/L <14 [facility] White blood cell (WBC) count Ordered By: Yudith Roman on 10-18-2024 WBC (Bld) [#/Vol] 7.4 10*3/uL Normal 4.4-11.0 [facility] Comment on above: Performed By: #### L 501.4021, L100.0100, L500.2500 ####[facility] [address] [place], [address] Orthopedic Visit Reporton Orthopedic Visit Report Normal [facility] Urgent Care Visit Reporton 0 10-08-2024 Urgent Care Visit Report Normal [facility] Magnetic resonance imaging r eportOrdered By: Danya Carrasquillo on 10-06-2024 Study report [facility] Imaging Services [address] [place] [address] Spine Lumbar (Routine) MR#: [id number] Acct: [id number] Name: AMINA TOBAR Rep #: [id number] : 1950 F 73 From: Lacey Carrasquillo MD PCP: Dr. Fiorella Hall MD Status: RE G CLI Study:Spine Lumbar (Routine) Date of Exam: 10/05/24 Exam# [id number] Ordering Dr: Socrates Berman PA PROCEDURE: SPINE LUMBAR (ROUTINE) 10/05/2024 REASON FOR EXAM: PAIN TECHNIQUE: Multiplanar and multisequence images were obtained without IV contrast administration. COMPARISON: Radiographs on 08/05/2024. FINDINGS: Moderate diffuse spondylotic changes. Findings are demonstrated by multifocal disc dehydration, disc space narrowing, osteophyte formation and degenerative endplate changes. There is normal signal intensity from the visualized bone marrow without evidence of replacement or acute fracture. The conus is unremarkable. Mildly exaggerated lumbar lordosis. Evaluation of the individual levels revealed the following: L5-S1: There is grade 1 retrolisthesis measuring 4.2 mm. Moderate diffuse disc bulge. Superimposed right paracentral disc extrusion measuring 1.4?0.7 cm in its largest craniocaudal and anteroposteriordimensions respectively. Caudal subligamentous slippage of the herniated disc without sequestration. Bilateral facet joint arthropathy and ligamentum flavum hypertrophy. The spinal canal is moderately narrowed. There is moderate bilateral neural foraminanarrowing. L4-5: There is grade 1 anterolisthesis measuring 4.3 mm. Prior laminectomies. Epidural fibrosis in the surgical bed. Moderate diffuse disc bulge. The spinal canal is mildly narrowed. There is mild bilateralneural foramina narrowing. L3-4: Prior laminectomies. Epidural fibrosis in the surgical bed. Moderate diffuse disc bulge. Superimposed left paracentral disc extrusion measuring 5.7 mm. Bilateral ligamentum flavum hypertrophy. The spinal canal is mildly narrowed. There is mild right and moderate left neural foramina narrowing. L2-3: There is mild diffuse disc bulge. Bilateral facet joint arthropathy and ligamentum flavum hypertrophy. The spinal canal is mildly narrowed. There is mild bilateral neural foramina narrowing. L1-2: There is grade 1 retrolisthesis measuring 4.6 mm with mild diffuse disc bulge. Bilateral facet joint arthropathy and ligamentum flavum hypertrophy. The spinal canal is mildly narrowed. There is mild bilateral neural foramina narrowing. T11-T12: There is mild diffuse disc bulge. Bilateral facet joint arthropathy and ligamentum flavum hypertrophy. The spinal canal is not narrowed. Mild bilateral neural foramina narrowing. T10-11: There is mild diffuse disc bulge. Bilateral facet joint arthropathy andligamentum flavum hypertrophy. The spinal canal is not narrowed. Mild bilateral neural foramina narrowing. Normal visualized paraspinous soft tissue structures. MRI/Spine Lumbar (Routine) IMPRESSION: Spondylosis. Degenerative disc disease. [facility] CC: ROXANA Corcoran; Dr. Fiorella Hall MD ~ Fuel Cell Test Engineer: Signed [facility] Spine Lumbar (Routine)on Spine Lumbar (Routine) Normal [facility] Orthopedic Visit Reporton Orthopedic Visit Report Normal [facility] CNOVon 08-09-2024 CNOV Office Visit (INTMWS ) AMINA TOBAR ([id number]) 1950 F NFR Date Time Provider Department 08/09/24 8:40 AM FIORELLA HALL INTMWS During your visit today, we recorded the following information about you: Pulse Respiration Blood pressure Weight 61/minute 16/minute 128/66 68.9 kg Fiorella Hall MD 08/16/2024 1:41 AM Signed This note was created using [employer]. Subjective Amina Tobar is a 73 year old female. Patient presents with: Recheck: 6 month routine SUBJECTIVE: Amina Tobar is a 73 year old year old lady here today for 6 month follow up appointment for review of medical conditions. Amy is a 73-year-old female with a history of CAD, presenting for a 6-month follow-up. Amy reports experiencing significant pain in her legs and feet, which she attributes to the initiation of pravastatin following the placement of a coronary stent. She notes that the pain is most severe in the morning after taking the medication at night, making it difficult for her to walk. She has tried various types of shoes and has consulted a registered nurse midwife, who did not find any abnormalities on x-rays. She also reports wearing braces on her ankles due to pain and has been diagnosed with a bone spur and inflammation by [facility]. She is currently taking tramadol and Tylenol Arthritis for pain management. Amy also reports experiencing headaches and nausea since starting Plavix, which was prescribed after she experienced significant bruising with Brilinta. She is also taking aspirin, carvedilol, losartan, omeprazole, trazodone, and Wellbutrin. She reports that her nails have become brittle and are peeling, and she is unsure if she is getting enough calcium in her diet. She denies taking calcium supplements. Amy has a history of coronary artery disease and had a stent placed for a 95% blockage in the mid-RCA. She also has a 60% blockage in another artery that is being monitored. She reports experiencing classic symptoms of angina, including pain in her neck, jaw, and ear, which led to the discovery of the blockage. She has a family history of heart disease, with her father dying of a heart attack at age 74. She is currently following up with her picker box operator, Dr. Quiñonez, and is due for a lipid panel. Amy also has a history of back pain and has had back surgery in the past. She reports that her back pain has been worsening and is awaiting an MRI before she can see a surgeon. She has been told that she would benefit from a cortisone injection, but is unable to receive one due to her blood thinner medication. She is currently taking Plavix and reports experiencing headaches and nausea since starting the medication. She also reports feeling melancholy and attributes it to the winter weather and her health issues. She is taking Wellbutrin for depression and has lorazepam on hand for occasional use. PAST MEDICAL HISTORY Diagnosis Date Allergic rhinitis, [...] Unspecified hypothyroidism Current Outpatient Medications Medication Sig clopidogrel (PLAVIX) 75 mg tablet Take 75 mg by mouth once daily. traZODone (DESYREL) 100 mg tablet Take 1 tablet by mouth daily at bedtime. As directed carvedilol (COREG) 3.125 mg tablet Take 3.125 mg by mouth two times a day with meals. losartan (COZAAR) 50 mg tablet Take 50 mg by mouth once daily. pravastatin (PRAVACHOL) 40 mg tablet Take 40 mg by mouth daily at bedtime. levothyroxine (SYNTHROID) 75 mcg tablet Take 1 tablet by mouth once daily. cyclobenzaprine (FLEXERIL) 10 mg tablet Take 1 tablet by mouth at bedtime as needed for muscle spasm. hydroCHLOROthiazide 50 mg tablet Take 1 tablet by mouth once daily. (Patient taking differently: Take 25 mg by mouth once daily.) dicyclomine (BENTYL) 10 mg capsule Take 1 [...] by mouth twice daily before meals (0600/1600). buPROPion XL (WELLBUTRIN XL) (more content not included)... Normal [facility] 25(OH)D3 [facility]-yenon 2024 25-hydroxyvitamin D3 [Mass/Vol] 39.3 ng/mL Normal 31.0-80.0 [facility] Comment on above: Order Comment: Speci men Type: BLOOD SPECIMENOrdering Facility: [facility] Address: [address] [place] [address] Result Comment: Clas sification of 25 [place] Vitamin D status: Deficiency/Insufficiency: < or = 30 ng/ml. Sufficiency/Optimal Levels: 31-80 ng/mL Toxicity: > 100 ng/mL. Test performed by chemiluminescent immunoassay. Performed By: #### 1 989-3 ####[facility] LABCLIA [id number] [place] [address] [place] CBC panel Auto (Bld)on 08-07 Erythrocyte distribution width (RBC) [Ratio] 12.7 % Normal 11.5-15.0 [facility] Comment on above: Order Comment: Speci men Type: BLOOD SPECIMENOrdering Facility: [facility] Address: [address] [place] [address] Performed By: #### 5 8410-2 ####[facility] [id number] [place] [address] [place] Hematocrit (Bld) [Volume fraction] 36.5 % Normal 36.0-46.0 [facility] Comment on above: Order Comment: Speci men Type: BLOOD SPECIMENOrdering Facility: [facility] Address: [address] [place] [address] Performed By: #### 5 8410-2 ####[facility] [id number] [place] [address] [place] Hemoglobin (Bld) [Mass/Vol] 12.3 g/dL Normal 11.5-15.5 [facility] Comment on above: Order Comment: Speci men Type: BLOOD SPECIMENOrdering Facility: [facility] Address: [address] [place] [address] Performed By: #### 5 8410-2 ####[facility]CS[facility] [id number] [address] [place] MCH (RBC) [Entitic mass] 31.5 pg Normal 26.0-34.0 [facility] Comment on above: Order Comment: Speci men Type: BLOOD SPECIMENOrdering Facility: [facility] Address: [address] [place] [address] Performed By: #### 5 8410-2 ####[facility] HOSPITALNCGabriela [id number] [address] [place] MCHC (RBC) [Mass/Vol] 33.7 g/dL Normal 30.5-36.0 [facility] Comment on above: Order Comment: Speci men Type: BLOOD SPECIMENOrdering Facility: [facility] Address: [address] [place] [address] Performed By: #### 5 8410-2 ####[facility]OSPITALNCA [id number] [address] [place] MCV (RBC) [Entitic vol] 93.4 fL Normal 80.0-100.0 [facility] Comment on above: Order Comment: Speci men Type: BLOOD SPECIMENOrdering Facility: [facility] Address: [address] [place] [address] Performed By: #### 5 8410-2 ####[facility]ITALNCLIA [id number] [place] [address] [place] Nucleated RBC (Bld) [#/Vol] 10*3/uL Normal <0.01 [facility] Comment on above: Order Comment: Speci men Type: BLOOD SPECIMENOrdering Facility: [facility] Address: [address] [id number] Performed By: #### 5 8410-2 ####[facility] [id number] [place] [address] [place] Platelet mean volume (Bld) [Entitic vol] 9.5 fL Normal 9.0-12.7 [facility] Comment on above: Order Comment: Speci men Type: BLOOD SPECIMENOrdering Facility: [facility] Address: [address] [place] [address] Performed By: #### 5 8410-2 ####[facility] HOSPITALYENA [id number] [place] [address] [place] Platelets (Bld) [#/Vol] 234 10*3/uL Normal 150-400 [facility] Comment on above: Order Comment: Speci men Type: BLOOD SPECIMENOrdering Facility: [facility] Address: [address] [place] [address] Performed By: #### 5 8410-2 ####[facility]ITALNCLIA [id number] [place] [address] [place] RBC (Bld) [#/Vol] 3.91 10*6/uL Normal 3.90-5.20 [facility] Comment on above: Order Comment: Speci men Type: BLOOD SPECIMENOrdering Facility: [facility] Address: [address] [place] [address] Performed By: #### 5 8410-2 ####[facility]ITALNCLIA [id number] [place] [address] [place] WBC (Bld) [#/Vol] 5.02 10*3/uL Normal 3.70-11.00 [facility] Comment on above: Order Comment: Speci men Type: BLOOD SPECIMENOrdering Facility: [facility] Address: [address] [place] [address] Performed By: #### 5 8410-2 ####[facility] MILLTOWNCLIA [id number] [place] [address] [place] Comprehensive metabolic 2000 panelon 08-07-2024 Albumin [Mass/Vol] 4.0 g/dL Normal 3.9-4.9 [facility] Comment on above: Order Comment: Speci men Type: BLOOD SPECIMENOrdering Facility: [facility] Address: [address] [place] [address] Performed By: #### 1 9123-9, 74627-1 ####[facility] MILLTOWNCLIA [id number] [place] [address] [place] ALP [Catalytic activity/Vol] 55 U/L Normal 34-123 [facility] Comment on above: Order Comment: Speci men Type: BLOOD SPECIMENOrdering Facility: [facility] Address: [address] [place] [address] Performed By: #### 1 9123-9, 25140-8 ####[facility] MILLTOWNCLIA [id number] [place] [address] [place] ALT [Catalytic activity/Vol] 9 U/L Normal 7-38 [facility] Comment on above: Order Comment: Speci men Type: BLOOD SPECIMENOrdering Facility: [facility] Address: [address] [place] [address] Performed By: #### 1 9123-9, 22695-3 ####[facility] MILLTOWNCLIA [id number] [place] [address] [place] Anion gap [Moles/Vol] 7 mmol/L Low 8-15 [facility] Comment on above: Order Comment: Speci men Type: BLOOD SPECIMENOrdering Facility: [facility] Address: [address] [place] [address] Performed By: #### 1 9123-9, 67719-5 ####[facility] MILLTOWNCLIA [id number] [place] [address] [place] AST [Catalytic activity/Vol] 16 U/L Normal 13-35 [facility] Comment on above: Order Comment: Speci men Type: BLOOD SPECIMENOrdering Facility: [facility] Address: [address] [place] [address] Performed By: #### 1 9123-9, 66089-6 ####[facility] SHANDRAEJWYENLIA [id number] [place] [address] [place] Bilirubin [Mass/Vol] 0.3 mg/dL Normal 0.2-1.3 [facility] Comment on above: Order Comment: Speci men Type: BLOOD SPECIMENOrdering Facility: [facility] Address: [address] [place] [address] Performed By: #### 1 9123-9, 27582-2 ####[facility] [id number] [place] [address] [place] Calcium [Mass/Vol] 9.3 mg/dL Normal 8.5-10.2 [facility] Comment on above: Order Comment: Speci men Type: BLOOD SPECIMENOrdering Facility: [facility] Address: [address] [place] [address] Performed By: #### 1 9123-9, 05340-1 ####[facility] [id number] [place] [address] [place] Chloride [Moles/Vol] 102 mmol/L Normal 98-107 [facility] Comment on above: Order Comment: Speci men Type: BLOOD SPECIMENOrdering Facility: [facility] Address: [address] [place] [address] Performed By: #### 1 9123-9, 39639-6 ####[facility] MILLEJWNCLIA [id number] [place] [address] [place] CO2 [Moles/Vol] 28 mmol/L Normal 22-30 [facility] Comment on above: Order Comment: Speci men Type: BLOOD SPECIMENOrdering Facility: [facility] Address: [address] [place] [address] Performed By: #### 1 9123-9, 17790-1 ####[facility] [id number] [place] [address] [place] Creatinine [Mass/Vol] 0.82 mg/dL Normal 0.58-0.96 [facility] Comment on above: Order Comment: Speci men Type: BLOOD SPECIMENOrdering Facility: [facility] Address: [address] [place] [address] Performed By: #### 1 9123-9, ####[facility] [id number] [place] [address] [place] Creatinine and Glomerular filtration rate.predicted panel (S/P/Bld) 75 mL/min/1.73m??? Normal >=60 [facility] Comment on above: Order Comment: Speci men Type: BLOOD SPECIMENOrdering Facility: [facility] Address: [address] [place] [address] Result Comment: Patricia mated Glomerular Filtration Rate [...] actual GFR. Performed By: #### 1 9123-9, 31694-1 ####[facility] [id number] [place] [address] [place] Glucose [Mass/Vol] 108 mg/dL High 74-99 [facility] Comment on above: Order Comment: Speci men Type: BLOOD SPECIMENOrdering Facility: [facility] Address: [address] [place] [address] Result Comment: The [place] [employer] (ADA) provides guidance for cutoff [...] Standards of Medical Care in Diabetes 2016, [place] [employer]. Diabetes Care. 2016.39(Suppl 1). Performed By: #### 1 9123-9, 95963-4 ####[facility] HOSPITALSHANITA [id number] [place] [address] [place] Potassium [Moles/Vol] 4.3 mmol/L Normal 3.7-5.1 [facility] Comment on above: Order Comment: Speci men Type: BLOOD SPECIMENOrdering Facility: [facility] Address: [address] [place], [place] [address] Performed By: #### 1 9123-9, 73062-0 ####[facility]ITALSHANA [id number] [place] [address] [place] Protein [Mass/Vol] 6.3 g/dL Normal 6.3-8.0 [facility] Comment on above: Order Comment: Speci men Type: BLOOD SPECIMENOrdering Facility: [facility] Address: [address] [id number] Performed By: #### 1 9123-9, 04373-1 ####[facility] [id number] [place] [address] [place] Sodium [Moles/Vol] 137 mmol/L Normal 136-144 [facility] Comment on above: Order Comment: Speci men Type: BLOOD SPECIMENOrdering Facility: [facility] Address: [address] [place], [place] [address] Performed By: #### 1 9123-9, 70927-1 ####[facility] [id number] [place] [address] [place] Urea nitrogen [Mass/Vol] 15 mg/dL Normal 7-21 [facility] Comment on above: Order Comment: Speci men Type: BLOOD SPECIMENOrdering Facility: [facility] Address: [address] [place] [address] Performed By: #### 1 9123-9, 82882-1 ####[facility] [id number] [place] [address] [place] Magnesium SerPl-mCncon 08-07 Magnesium [Mass/Vol] 1.8 mg/dL Normal 1.7-2.3 [facility] Comment on above: Order Comment: Speci men Type: BLOOD SPECIMENOrdering Facility: [facility] Address: [address] [place] [address] Performed By: #### 1 9123-9, 45613-8 ####[facility] [id number] [place] [address] [place] T3Free SerPl-mCncon 08-08-19 25 Free T3 [Mass/Vol] 3.0 pg/mL Normal 2.3-4.1 [facility] Comment on above: Order Comment: Speci men Type: BLOOD SPECIMENOrdering Facility: [facility] Address: [address] [place] [address] Performed By: #### 3 051-0, 3016-3, 3024-7 ####[facility] LABCLIA [id number] [place] [address] [place] T4 Free SerPl-mCncon 025 Free T4 [Mass/Vol] 1.5 ng/dL Normal 0.9-1.7 [facility] Comment on above: Order Comment: Speci men Type: BLOOD SPECIMENOrdering Facility: [facility] Address: [address] [place] [address] [address] [id number] Performed By: #### 3 051-0, 3016-3, 3024-7 ####[facility] LABCLIA [id number] [place] [id number] [place] TSH SerPl-aCncon 08-07-2024 TSH Qn 0.699 m[IU]/L Normal 0.270-4.200 [facility] Comment on above: Order Comment: Speci men Type: BLOOD SPECIMENOrdering Facility: [facility] Address: [address] [id number] Performed By: #### 3 051-0, 3016-3, 3024-7 ####[facility] [facility] [id number] [address] [place] Ankle min 3 Viewson 08-06-19 25 Ankle min 3 Views Normal [facility] L/S Spine Min 4 Viewson 07-14 L/S Spine Min 4 Views Normal [facility] Orthopedic Visit Reporton Orthopedic Visit Report Normal [facility] Cardiology Visit Reporton Cardiology Visit Report Normal [facility] CAROLYN SCREENING W TOMOon 05-28 CAROLYN SCREENING W KIKE * * *Final Report* * * DATE OF EXAM: May 28 2024 9:27AM [facility] 0582 - CAROLYN SCREENING W KIKE / PROCEDURE REASON: Screening mammogram for breast cancer * * * * Physician Interpretation * * * * RESULT: [facility] [address] [place] [address] #[id number] - CAROLYN SCREENING W KIKE HISTORY: Patient is 73 years old and is seen for screening and is asymptomatic in both breasts. Patient states no personal history of breast cancer. Patient states no personal history of other cancers. COMPARISON STUDIES: No prior imaging studies are available for comparison. MAMMOGRAM TECHNIQUE: The study was acquired using full field digital technology and interpreted from soft copy. Digital Breast Tomosynthesis (DBT) images were obtained and used to assist in the interpretation of this examination. MAMMOGRAM FINDINGS: The breasts are almost entirely fatty. No suspicious masses, calcifications or other abnormalities are seen in either breast. IMPRESSION: There is no mammographic evidence of malignancy in either breast. Routine screening mammogram is recommended. Annual mammogram will be due in 1 year. BI-RADS Category 1: Negative RISK: Based on the Tyrer-Cuzick (TC) risk assessment model, this patient has a 1.5% lifetime risk of developing breast cancer, meaning they are at average risk for developing breast cancer. However, this is only an estimate based on available history provided on the patient's questionnaire. We encourage all patients to talk with their providers about these results, further recommendations for managing breast health, and appropriate supplemental screening options if the patient has dense breast tissue. Interpreting Radiologist: Arti Rivera M.D. Electronically signed on: 05/29/2024 Fuel Cell Test Engineer: TAJ Transcribe Date/Time: May 28 2024 8:23A Dictated by: ARTI RIVERA MD This examination was interpreted and the report reviewed and electronically signed by: ARTI RIVERA MD on May 29 2024 11:54AM EST [id number] Normal [facility] Basic Metabolic Profile (BMP )on 04-19-2024 BUN/CRE 14.9 RATIO Normal 10-20 [facility] Comment on above: Performed By: #### L 500.2500, L501.5200, L501.9520, L100.0100 ####[facility] [address] [place], [address] CA,Total 9.1 mg/dL Normal 8.5-10.1 [facility] Comment on above: Performed By: #### L 500.2500, L501.5200, L501.9520, L100.0100 ####[facility] [address] [place], [address] Chloride [Moles/Vol] 108 mmol/L High 98-107 [facility] Comment on above: Performed By: #### L 500.2500, L501.5200, L501.9520, L100.0100 ####[facility] [address] [place], [address] CO2 [Moles/Vol] 24.0 mmol/L Normal 21.0-32.0 [facility] Comment on above: Performed By: #### L 500.2500, L501.5200, L501.9520, L100.0100 ####[facility] [address] [place], [address] Creatinine [Mass/Vol] 1.01 mg/dL Normal 0.55-1.02 [facility] Comment on above: Result Comment: The validity of the calculated GFR GFRAA in patients over70 years has not been determined. Clinical correlation isessential. Performed By: #### L 500.2500, L501.5200, L501.9520, L100.0100 ####[facility] [address] [place], [address] EST GFR - AA 69 mL/min Normal >60 [facility] Comment on above: Result Comment: Afri can Eritrean GFR Calc Performed By: #### L 500.2500, L501.5200, L501.9520, L100.0100 ####[facility] [address] [place], [address] GAP 5 Normal 5-15 [facility] Comment on above: Performed By: #### L 500.2500, L501.5200, L501.9520, L100.0100 ####[facility] [address] [place], [address] GFR/1.73 sq M.predicted among non-blacks MDRD (S/P/Bld) [Vol rate/Area] 57 mL/min/{1.73_m2} Low >60 [facility] Comment on above: Result Comment: Non- GFR Calc Performed By: #### L 500.2500, L501.5200, L501.9520, L100.0100 ####[facility] [address] [place], [address] Glucose [Mass/Vol] 104 mg/dL Normal 74-106 [facility] Comment on above: Result Comment: Fast ing Glucose result from 100 to 125 mg/dLsuggests IMPAIRED HOMEOSTASIS per A.D.A. criteria. Performed By: #### L 500.2500, L501.5200, L501.9520, L100.0100 ####[facility] [address] [place], [address] Potassium [Moles/Vol] 4.3 mmol/L Normal 3.5-5.1 [facility] Comment on above: Performed By: #### L 500.2500, L501.5200, L501.9520, L100.0100 ####[facility] [address] [place], [address] Sodium [Moles/Vol] 137 mmol/L Normal 136-145 [facility] Comment on above: Performed By: #### L 500.2500, L501.5200, L501.9520, L100.0100 ####[facility] [address] [place], [address] Urea nitrogen [Mass/Vol] 15 mg/dL Normal 7-18 [facility] Comment on above: Performed By: #### L 500.2500, L501.5200, L501.9520, L100.0100 ####[facility] [address] [place], [address] CBC W/Diff, Automatedon 12-0 -2023 Absolute Lymph 2.47 X10 3/uL Normal 0.83-4.51 [facility] Comment on above: Performed By: #### L 500.2500, L501.5200, L501.9520, L100.0100 ####[facility] [address] [place], [address] Absolute Neut 4.5 X10 3/uL Normal 2.0-7.7 [facility] Comment on above: Performed By: #### L 500.2500, L501.5200, L501.9520, L100.0100 ####[facility] [address] [place], [address] Basophils/100 WBC (Bld) 1.2 % High 0-1 [facility] Comment on above: Performed By: #### L 500.2500, L501.5200, L501.9520, L100.0100 ####[facility] [address] [place], [address] Eosinophils/100 WBC (Bld) 2.2 % Normal 0-5 [facility] Comment on above: Performed By: #### L 500.2500, L501.5200, L501.9520, L100.0100 ####[facility] [address] [place], [address] Erythrocyte distribution width (RBC) [Ratio] 12.7 % Normal 11.6-14.6 [facility] Comment on above: Performed By: #### L 500.2500, L501.5200, L501.9520, L100.0100 ####[facility] [address] [place], [address] Hematocrit (Bld) [Volume fraction] 39.5 % Normal 37-47 [facility] Comment on above: Performed By: #### L 500.2500, L501.5200, L501.9520, L100.0100 ####[facility] [address] [place], [address] Hemoglobin (Bld) [Mass/Vol] 13.5 g/dL Normal 12.0-15.0 [facility] Comment on above: Performed By: #### L 500.2500, L501.5200, L501.9520, L100.0100 ####[facility] [address] [place], [address] IG% 0.400 Normal 0.0-0.9 [facility] Comment on above: Result Comment: IG% - Immature Granulocytes (promyelocytes, myelocytes andmetamyelocytes) > 1% indicates that a LEFT SHIFT is Present. Performed By: #### L 500.2500, L501.5200, L501.9520, L100.0100 ####[facility] [address] [place], [address] Lymphocytes/100 WBC (Bld) 30.7 % Normal 19-41 [facility] Comment on above: Performed By: #### L 500.2500, L501.5200, L501.9520, L100.0100 ####[facility] [address] [place], [address] MCH (RBC) [Entitic mass] 31.8 pg Normal 27.0-32.0 [facility] Comment on above: Performed By: #### L 500.2500, L501.5200, L501.9520, L100.0100 ####[facility] [address] [place], [address] MCHC (RBC) [Mass/Vol] 34.2 g/dL Normal 32-36 [facility] Comment on above: Performed By: #### L 500.2500, L501.5200, L501.9520, L100.0100 ####[facility] [address] [place], [address] MCV (RBC) [Entitic vol] 92.9 fL Normal 81-99 [facility] Comment on above: Performed By: #### L 500.2500, L501.5200, L501.9520, L100.0100 ####[facility] [address] [place], [address] Monocytes/100 WBC (Bld) 10.1 % High 0-10 [facility] Comment on above: Performed By: #### L 500.2500, L501.5200, L501.9520, L100.0100 ####[facility] [address] [place], [address] Neutrophils/100 WBC (Bld) 55.4 % Normal 47-70 [facility] Comment on above: Performed By: #### L 500.2500, L501.5200, L501.9520, L100.0100 ####[facility] [address] [place], [address] Nucleated RBC (Bld) [#/Vol] 0 10*3/uL Normal 0-5 [facility] Comment on above: Performed By: #### L 500.2500, L501.5200, L501.9520, L100.0100 ####[facility] [address] [place], [address] Platelet mean volume (Bld) [Entitic vol] 9.9 fL Normal 6.2-12.0 [facility] Comment on above: Performed By: #### L 500.2500, L501.5200, L501.9520, L100.0100 ####[facility] [address] [place], [address] Platelets (Bld) [#/Vol] 301 10*3/uL Normal 150-450 [facility] Comment on above: Performed By: #### L 500.2500, L501.5200, L501.9520, L100.0100 ####[facility] [address] [place], [address] RBC (Bld) [#/Vol] 4.25 10*6/uL Normal 4.2-5.4 [facility] Comment on above: Performed By: #### L 500.2500, L501.5200, L501.9520, L100.0100 ####[facility] [address] [place], [address] RDW SD 43.4 fl Normal 35.1-43.9 [facility] Comment on above: Performed By: #### L 500.2500, L501.5200, L501.9520, L100.0100 ####[facility] [address] [place], [address] WBC (Bld) [#/Vol] 8.0 10*3/uL Normal 4.4-11.0 [facility] Comment on above: Performed By: #### L 500.2500, L501.5200, L501.9520, L100.0100 ####[facility] [address] [place], [address] Magnesiumon 04-19-2024 Magnesium [Mass/Vol] 1.8 mg/dL Normal 1.6-2.6 [facility] Comment on above: Performed By: #### L 500.2500, L501.5200, L501.9520, L100.0100 ####[facility] [address] [place], [address] Thyroid Stim Hormone (TSH)on 04-19-2024 TSH 0.508 uIU/mL Normal 0.358-3.740 [facility] Comment on above: Performed By: #### L 500.2500, L501.5200, L501.9520, L100.0100 ####[facility] [address] [place], [address] Cardiology Visit Reporton Cardiology Visit Report Normal [facility] CNOVon 04-02-2024 CNOV Office Visit (VASSWS ) AMINA TOBAR ([id number]) 1950 F NFR Date Time Provider Department 04/02/24 10:30 AM ANNEMARIE WESTBROOK During your visit today, we recorded the following information about you: Pulse Blood pressure 65/minute 154/84 Annemarie Westbrook, DO 05/01/2024 1:36 PM Signed [facility] [place] DEPARTMENT OF VASCULAR SURGERY OUTPATIENT VISIT DATE April 02, 2024 OUTPATIENT VISIT TYPE ESTABLISHED SERVICE DATE: 04/02/2024 SERVICE TIME: 11:08 AM PRIMARY CARE PHYSICIAN: Fiorella Hall MD HISTORY OF PRESENT ILLNESS: Ms. Tobar is a 73 year old female who presents today for a vascular surgery follow-up visit after carotid duplex. She is in cardiac rehab now. She denies any focal neurologic deficits. PAST MEDICAL HISTORY Diagnosis Date Allergic rhinitis, [...] (5oz) per week Drug use: No MEDICATIONS: carvedilol (COREG) 3.125 mg tablet Take 3.125 mg by mouth two times a day with meals. losartan (COZAAR) 50 mg tablet Take 50 mg by mouth once daily. pravastatin (PRAVACHOL) 40 mg tablet Take 40 mg by mouth daily at bedtime. ticagrelor (BRILINTA) 90 mg tablet Take 90 mg by mouth two times a day. LORazepam (ATIVAN) 0.5 mg Take 1 at bedtime as needed levothyroxine (SYNTHROID) 75 mcg tablet Take 1 tablet by mouth once daily. cyclobenzaprine (FLEXERIL) 10 mg tablet Take 1 tablet by mouth at bedtime as needed for muscle spasm. hydroCHLOROthiazide 50 mg tablet Take 1 tablet by mouth once daily. dicyclomine (BENTYL) 10 mg capsule Take 1 [...] D3 (VITAMIN D-3 ORAL) Take by mouth. ALLERGIES: ALLERGIES Allergen Reactions Axid [Nizatidine] Hives Cymbalta [Duloxetin* Insomnia Lipitor [Atorvastat* Other: See Comments Insomnia, headache and nausea Lisinopril Cough cough with vomiting Losartan Cough Currently taking Meridia [Sibutramin* Rash Sulfabenzamide Intolerance red mouth; sulfa med caused adverse effect PHYSICAL EXAM: BP 154/84 (BP Site: Left Arm, BP Position: Sitting, BP Cuff Size: Regular Adult) Pulse 65 SpO2 99% General: Alert and oriented Extremities: Varicose veins Neurological: Normal cognition and motor skills. Diagnostic tests reviewed for today's (more content not included)... Normal [facility] Tele[facility] (RGMOB) AMINA TOBAR ([id number]) 1950 F NFR Date Time Provider Department 04/02/24 FIORELLA HALL RGMOB During your visit today, we recorded the following information about you: SabinochristyJewel 04/02/2024 9:38 AM Signed Patient wanted to schedule mammogram but order . Please place order and call patient to schedule. Kunal Rea MA 04/02/2024 9:52 AM Signed Order pended, please file if agreeable. PAWEL Wolf Rachel L, MA 04/02/2024 9:52 AM Signed Addended by: KUNAL REA on: 04/02/2024 09:52 AM Modules accepted: Orders Coco Ocampo APRN.CNP 04/02/2024 10:06 AM Signed Done Coco Ocampo APRN.[facility] 04/02/2024 10:06 AM Signed Addended by: COCO OCAMPO on: 04/02/2024 10:06 AM Modules accepted: Orders Allergies As of Date: 04/02/2024 Noted Allergy Reaction AXID (NIZATIDINE) 03/30/2005 4 - Hives CYMBALTA (DULOXETINE) 08/19/2009 Comments: Insomnia LIPITOR (ATORVASTATIN) 11/27/2020 14 - Other: See Comments Comments: Insomnia, headache and nausea LISINOPRIL 07/04/2018 3 - Cough Comments: cough with vomiting LOSARTAN 08/05/2019 3 - Cough MERIDIA (SIBUTRAMINE) 03/30/2005 2 - Rash SULFABENZAMIDE 03/30/2005 5 - Intolerance Comments: red mouth; sulfa med caused adverse effect Date Reviewed: 03/15/2024 Reviewed by: Coco Ocampo APRN.MULTIMEDIA ENGINEER - Fully Assessed Reason for Visit: Orders [681] Visit Diagnosis:Encounter for screening mammogram for breast cancer [Z12.31] Order(s):[facility] SCREENING W KIKE [[id number]] Order #: [id number] FUTURE Prescriptions as of 04/02/2024 - carvedilol (COREG) 3.125 mg tablet Take 3.125 mg by mouth two times a day with meals. - losartan (COZAAR) 50 mg tablet Take 50 mg by mouth once daily. - pravastatin (PRAVACHOL) 40 mg tablet Take 40 mg by mouth daily at bedtime. - ticagrelor (BRILINTA) 90 mg tablet Take 90 mg by mouth two times a day. - LORazepam (ATIVAN) 0.5 mg Take 1 at bedtime as needed - levothyroxine (SYNTHROID) 75 mcg tablet Take [...] by mouth. Problem List As Of Date 04/02/2024 Noted Resolved GENERAL OSTEOARTHROSIS [M15.9] BONE AND [...] Disorder of carotid artery (HCC) [I77.9] 02/03/2023 Coronary artery disease involving kake romero*03/15/2024 Encounter Status:Closed by JEWEL PRAKASH on 04/02/24 Normal [facility] CAROTID ARTERIES [facility] 04-02-2024 US CAROTID ARTERIES [facility] Non-Invasive Vascular Laboratory [facility] Carotid Duplex Bilateral/Complete Date of service/time: 04/02/2024 9:00:41 AM Name: AMINA TOBAR Date of : 1950 Age: 73 years Gender: F Clinical Indication Follow-up study on a patient with known carotid disease. TECHNIQUE -------- A carotid duplex ultrasound examination was performed, including grayscale imaging and color Doppler and spectral Doppler examination of the below mentioned arteries. FINDINGS -------- RIGHT SIDE Common carotid artery: Origin: PSV: 94 cm/s. EDV: 13 cm/s. Proximal: PSV: 83 cm/s. EDV: 11 cm/s. Mid: PSV: 63 cm/s. EDV: 13 cm/s. Distal: PSV: 58 cm/s. EDV: 15 cm/s. Mild heterogeneous plaque at distal. Internal carotid artery: Origin: PSV: 210 cm/s. EDV: 49 cm/s. Proximal: PSV: 148 cm/s. EDV: 32 cm/s. Mid: PSV: 110 cm/s. EDV: 24 cm/s. Distal: PSV: 93 cm/s. EDV: 25 cm/s. Moderate heterogeneous plaque at origin. ICA/CCA Ratio: 3.6 External carotid artery: Origin: PSV: 51 cm/s. EDV: 8 cm/s. Mild heterogeneous plaque at origin. Subclavian artery: Origin: PSV: 89 cm/s. EDV: 0 cm/s. Mild heterogeneous plaque at origin. Innominate artery: PSV: 85 cm/s. EDV: 0 cm/s. Vertebral artery: PSV: 51 cm/s. EDV: 11 cm/s. LEFT SIDE Common carotid artery: Proximal: PSV: 94 cm/s. EDV: 16 cm/s. Mid: PSV: 77 cm/s. EDV: 17 cm/s. Distal: PSV: 78 cm/s. EDV: 19 cm/s. Internal carotid artery: Origin: PSV: 58 cm/s. EDV: 14 cm/s. Proximal: PSV: 59 cm/s. EDV: 17 cm/s. Mid: PSV: 73 cm/s. EDV: 20 cm/s. Distal: PSV: 91 cm/s. EDV: 23 cm/s. Mild heterogeneous plaque at origin. ICA/CCA Ratio: 0.8 External carotid artery: Origin: PSV: 52 cm/s. EDV: 0 cm/s. Subclavian artery: Proximal: PSV: 97 cm/s. EDV: 0 cm/s. Vertebral artery: PSV: 64 cm/s. EDV: 12 cm/s. IMPRESSION Please note: the new carotid interpretation criteria are used as recommended by [employer]. When compared with the prior study, of 03/29/2023 no significant change is noted on the right side and no significant change is noted on the left side. RIGHT SIDE Common carotid artery: Plaque visualized without evidence of hemodynamically significant stenosis. Internal carotid artery: 50-69% stenosis consistent with moderate carotid artery disease. Vertebral artery: Patent and antegrade flow noted. Subclavian artery: Plaque visualized without evidence of hemodynamically significant stenosis. LEFT SIDE Internal carotid artery: <50% stenosis consistent with mild carotid artery disease. Vertebral artery: Patent and antegrade flow noted. Subclavian artery: Patent. Technologist: Melissa Alejo RVT [facility] Ordering physician: ANNEMARIE WESTBROOK Interpreting physician: RON Melo DO Final CC ice Medical Image : [id number] [employer] See Link below for Image Normal [facility] Urgent Care Visit Reporton 1 05-19-2023 Urgent Care Visit Report Normal [facility] CNOVon 03-15-2024 CNOV Office Visit (INTMWS ) AMINA TOBAR ([id number]) 1950 F NFR Date Time Provider Department 03/15/24 2:00 PM COCO OCAMPO During your visit today, we recorded the following information about you: Pulse Blood pressure Weight 68/minute 140/76 69.9 kg Coco Ocampo APRN.MULTIMEDIA ENGINEER 03/15/2024 2:47 PM Signed SUBJECTIVE Amina Tobar is a 73 year old female here today for a hospital follow up. Chief Complaint Patient presents with: Hospital Follow Up: [facility] 03/05/24 with stent placement HPI Amina Tobar is a 73 year old female. She is an established patient of Fiorella Hall MD. Here today for hospital follow up. Discharged from [facility] on 03/05. Cardiac cath done on 03/04 for abnormal stress test. Drug eluting stent placed. Had 50% proximal and 95% midRCA stenosis, proximal LAD stenosis and 40% proximal left circ. EZEKIEL to the mid RCA. Started on Brilinta and ASA, Coreg and losartan. Has follow up with cardiology up coming. Doing cardiac rehab. Checking blood pressure at home and at cardiac rehab. Running 130's/70's. Seeing vascular later this month for known carotid artery stenosis. Her medications were reviewed today and her list is now up to date. Medications Current Outpatient Medications Medication Sig carvedilol (COREG) 3.125 mg tablet Take 3.125 mg by mouth two times a day with meals. losartan (COZAAR) 50 mg tablet Take 50 mg by mouth once daily. pravastatin (PRAVACHOL) 40 mg tablet Take 40 mg by mouth daily at bedtime. ticagrelor (BRILINTA) 90 mg tablet Take 90 mg by mouth two times a day. LORazepam (ATIVAN) 0.5 mg Take 1 at bedtime as needed levothyroxine (SYNTHROID) 75 mcg tablet Take 1 tablet by mouth once daily. cyclobenzaprine (FLEXERIL) 10 mg tablet Take 1 tablet by mouth at bedtime as needed for muscle spasm. hydroCHLOROthiazide 50 mg tablet Take 1 tablet by mouth once daily. dicyclomine (BENTYL) 10 mg capsule Take 1 [...] D3 (VITAMIN D-3 ORAL) Take by mouth. Current Facility-Administered Medications Medication Dose Route Frequency [START ON 04/01/2024] zoledronic acid 5 mg PREMIX piggyback (RECLAST) 5 mg INTRAVENOUS ONCE (AMB - Up to 30 Days) ALLERGIES Allergen Reactions Axid [Nizatidine] Hives Cymbalta [Duloxetin* Insomnia Lipitor [Atorvastat* Other: See Comments Insomnia, headache and nausea Lisinopril Cough cough with vomiting Losartan Cough Meridia [Sibutramin* Rash Sulfabenzamide Intolerance red mouth; sulfa med caused adverse effect ACTIVE PROBLEM LIST Coronary Artery Disease Involving [place] Coronary Artery of [place] Heart Without Angina Pectoris - 03/15/2024 Disorder of Carotid Artery (Hcc) - 02/03/2023 Constipation - 11/28/2022 Essential Hypertension - 06/13/2019 Anxiety, Generalized - 06/13/2019 Abdominal Pain, Rlq - 06/13/2019 Psychophysiological Insomnia - 06/13/2019 Other and Unspecified Noninfectious Gastroenteritis and Colitis(558.9) - 04/09/2014 Parapelvic Renal Cyst - 01/14/2014 Comment: CT [facility] 12/29/13 Lipoma of Unspecified Site - 02/09/2010 [...] Use Vaping status: Never Used Substance Use T (more content not included)... Normal [facility] Basic Metabolic Profile (BMP )on 03-11-2024 BUN Normal -18 [facility] Comment on above: Result Comment: Canc elled via OM: Order cancelled - Patient discharged Performed By: #### L 500.2500, L100.0100 ####[facility] [address] [place], [address] BUN/CRE Normal 10-20 [facility] Comment on above: Result Comment: Canc elled via OM: Order cancelled - Patient discharged Performed By: #### L 500.2500, L100.0100 ####[facility] [address] [place], [address] CA,Total Normal 8.5-10.1 [facility] Comment on above: Result Comment: Canc elled via OM: Order cancelled - Patient discharged Performed By: #### L 500.2500, L100.0100 ####[facility] [address] [place], [address] CL Normal 98-107 [facility] Comment on above: Result Comment: Canc elled via OM: Order cancelled - Patient discharged Performed By: #### L 500.2500, L100.0100 ####[facility] [address], [address] CO2 Normal 21.0-32.0 [facility] Comment on above: Result Comment: Canc elled via OM: Order cancelled - Patient discharged Performed By: #### L 500.2500, L100.0100 ####[facility] [address] [place], [address] CREAT,SERUM Normal 0.55-1.02 [facility] Comment on above: Result Comment: Canc elled via OM: Order cancelled - Patient discharged Performed By: #### L 500.2500, L100.0100 ####[facility] [address] [place], [address] EST GFR Normal >60 [facility] Comment on above: Result Comment: Canc elled via OM: Order cancelled - Patient discharged Performed By: #### L 500.2500, L100.0100 ####[facility] [address] [place], [address] EST GFR - AA Normal >60 [facility] Comment on above: Result Comment: Canc elled via OM: Order cancelled - Patient discharged Performed By: #### L 500.2500, L100.0100 ####[facility] [address] [place], [address] GAP Normal 5-15 [facility] Comment on above: Result Comment: Canc elled via OM: Order cancelled - Patient discharged Performed By: #### L 500.2500, L100.0100 ####[facility] [address] [place], [address] GLU Normal 74-106 [facility] Comment on above: Result Comment: Canc elled via OM: Order cancelled - Patient discharged Performed By: #### L 500.2500, L100.0100 ####[facility] [address] [place], [address] Potassium Normal 3.5-5.1 [facility] Comment on above: Result Comment: Canc elled via OM: Order cancelled - Patient discharged Performed By: #### L 500.2500, L100.0100 ####[facility] [address] [place], [place], [address] Basic Metabolic Profile (BMP) Normal 136-145 [facility] Comment on above: Result Comment: Canc elled via OM: Order cancelled - Patient discharged Performed By: #### L 500.2500, L100.0100 ####[facility] [address] [place], [address] CBC W/Diff, Automatedon 10-2 Absolute Neut Normal 2.0-7.7 [facility] Comment on above: Result Comment: Canc elled via OM: Order cancelled - Patient discharged Performed By: #### L 500.2500, L100.0100 ####[facility] [address] [place], [address] HCT Normal 37-47 [facility] Comment on above: Result Comment: Canc elled via OM: Order cancelled - Patient discharged Performed By: #### L 500.2500, L100.0100 ####[facility] [address] [place], [address] HGB Normal 12.0-15.0 [facility] Comment on above: Result Comment: Canc elled via OM: Order cancelled - Patient discharged Performed By: #### L 500.2500, L100.0100 ####[facility] [address] [place], [address] MCH Normal 27.0-32.0 [facility] Comment on above: Result Comment: Canc elled via OM: Order cancelled - Patient discharged Performed By: #### L 500.2500, L100.0100 ####[facility] [address] [place], [address] MCHC Normal 32-36 [facility] Comment on above: Result Comment: Canc elled via OM: Order cancelled - Patient discharged Performed By: #### L 500.2500, L100.0100 ####[facility] [address] [place], [address] MCV Normal 81-99 [facility] Comment on above: Result Comment: Canc elled via OM: Order cancelled - Patient discharged Performed By: #### L 500.2500, L100.0100 ####[facility] [address] [place], [address] NEUT% Normal 47-70 [facility] Comment on above: Result Comment: Canc elled via OM: Order cancelled - Patient discharged Performed By: #### L 500.2500, L100.0100 ####[facility] [address] [place], [address] PLT Normal 150-450 [facility] Comment on above: Result Comment: Canc elled via OM: Order cancelled - Patient discharged Performed By: #### L 500.2500, L100.0100 ####[facility] [address] [place], [address] RBC Normal 4.2-5.4 [facility] Comment on above: Result Comment: Canc elled via OM: Order cancelled - Patient discharged Performed By: #### L 500.2500, L100.0100 ####[facility] [address] [place], [address] RDW CV Normal 11.6-14.6 [facility] Comment on above: Result Comment: Canc elled via OM: Order cancelled - Patient discharged Performed By: #### L 500.2500, L100.0100 ####[facility] [address] [place], [address] RDW SD Normal 35.1-43.9 [facility] Comment on above: Result Comment: Canc elled via OM: Order cancelled - Patient discharged Performed By: #### L 500.2500, L100.0100 ####[facility] [address] [place], [address] WBC Normal 4.4-11.0 [facility] Comment on above: Result Comment: Canc elled via OM: Order cancelled - Patient discharged Performed By: #### L 500.2500, L100.0100 ####[facility] [address] [place], [address] Basic Metabolic Profile (BMP )on 03-10-2024 BUN Normal - [facility] Comment on above: Result Comment: Canc elled via OM: Order cancelled - Patient discharged Performed By: #### L 500.2500, L100.0100 ####[facility] [address] [place], [address] BUN/CRE Normal - [facility] Comment on above: Result Comment: Canc elled via OM: Order cancelled - Patient discharged Performed By: #### L 500.2500, L100.0100 ####[facility] [address] [place], [address] CA,Total Normal 8.5-10.1 [facility] Comment on above: Result Comment: Canc elled via OM: Order cancelled - Patient discharged Performed By: #### L 500.2500, L100.0100 ####[facility] [address] [place], [address] CL Normal 98-107 [facility] Comment on above: Result Comment: Canc elled via OM: Order cancelled - Patient discharged Performed By: #### L 500.2500, L100.0100 ####[facility] [address] [place], [address] CO2 Normal 21.0-32.0 [facility] Comment on above: Result Comment: Canc elled via OM: Order cancelled - Patient discharged Performed By: #### L 500.2500, L100.0100 ####[facility] [address] [place], [address] CREAT,SERUM Normal 0.55-1.02 [facility] Comment on above: Result Comment: Canc elled via OM: Order cancelled - Patient discharged Performed By: #### L 500.2500, L100.0100 ####[facility] [address] [place], [address] EST GFR Normal >60 [facility] Comment on above: Result Comment: Canc elled via OM: Order cancelled - Patient discharged Performed By: #### L 500.2500, L100.0100 ####[facility] [address] [place], [address] EST GFR - AA Normal >60 [facility] Comment on above: Result Comment: Canc elled via OM: Order cancelled - Patient discharged Performed By: #### L 500.2500, L100.0100 ####[facility] [address] [place], [address] GAP Normal 5-15 [facility] Comment on above: Result Comment: Canc elled via OM: Order cancelled - Patient discharged Performed By: #### L 500.2500, L100.0100 ####[facility] [address] [place], [address] GLU Normal 74-106 [facility] Comment on above: Result Comment: Canc elled via OM: Order cancelled - Patient discharged Performed By: #### L 500.2500, L100.0100 ####[facility] [address] [place], [address] Potassium Normal 3.5-5.1 [facility] Comment on above: Result Comment: Canc elled via OM: Order cancelled - Patient discharged Performed By: #### L 500.2500, L100.0100 ####[facility] [address] [place], [address] Basic Metabolic Profile (BMP) Normal 136-145 [facility] Comment on above: Result Comment: Canc elled via OM: Order cancelled - Patient discharged Performed By: #### L 500.2500, L100.0100 ####[facility] [address] [place], [address] CBC W/Diff, Automatedon 10-2 Absolute Neut Normal 2.0-7.7 [facility] Comment on above: Result Comment: Canc elled via OM: Order cancelled - Patient discharged Performed By: #### L 500.2500, L100.0100 ####[facility] [address] [place], [address] HCT Normal 37-47 [facility] Comment on above: Result Comment: Canc elled via OM: Order cancelled - Patient discharged Performed By: #### L 500.2500, L100.0100 ####[facility] [address] [place], [address] HGB Normal 12.0-15.0 [facility] Comment on above: Result Comment: Canc elled via OM: Order cancelled - Patient discharged Performed By: #### L 500.2500, L100.0100 ####[facility] [address] [place], [address] MCH Normal 27.0-32.0 [facility] Comment on above: Result Comment: Canc elled via OM: Order cancelled - Patient discharged Performed By: #### L 500.2500, L100.0100 ####[facility] [address] [place], [address] MCHC Normal 32-36 [facility] Comment on above: Result Comment: Canc elled via OM: Order cancelled - Patient discharged Performed By: #### L 500.2500, L100.0100 ####[facility] [address] [place], [address] MCV Normal 81-99 [facility] Comment on above: Result Comment: Canc elled via OM: Order cancelled - Patient discharged Performed By: #### L 500.2500, L100.0100 ####[facility] [address] [place], [address] NEUT% Normal 47-70 [facility] Comment on above: Result Comment: Canc elled via OM: Order cancelled - Patient discharged Performed By: #### L 500.2500, L100.0100 ####[facility] [address] [place], [address] PLT Normal 150-450 [facility] Comment on above: Result Comment: Canc elled via OM: Order cancelled - Patient discharged Performed By: #### L 500.2500, L100.0100 ####[facility] [address] [place], [address] RBC Normal 4.2-5.4 [facility] Comment on above: Result Comment: Canc elled via OM: Order cancelled - Patient discharged Performed By: #### L 500.2500, L100.0100 ####[facility] [address] [place], [address] RDW CV Normal 11.6-14.6 [facility] Comment on above: Result Comment: Canc elled via OM: Order cancelled - Patient discharged Performed By: #### L 500.2500, L100.0100 ####[facility] [address] [place], [address] RDW SD Normal 35.1-43.9 [facility] Comment on above: Result Comment: Canc elled via OM: Order cancelled - Patient discharged Performed By: #### L 500.2500, L100.0100 ####[facility] [address] [place], [address] WBC Normal 4.4-11.0 [facility] Comment on above: Result Comment: Canc elled via OM: Order cancelled - Patient discharged Performed By: #### L 500.2500, L100.0100 ####[facility] [address] [place], [address] Basic Metabolic Profile (BMP )on 03-09-2024 BUN Normal -18 [facility] Comment on above: Result Comment: Canc elled via OM: Order cancelled - Patient discharged Performed By: #### L 100.0100, L500.2500 ####[facility] [address] [place], [address] BUN/CRE Normal 10-20 [facility] Comment on above: Result Comment: Canc elled via OM: Order cancelled - Patient discharged Performed By: #### L 100.0100, L500.2500 ####[facility] [address] [place], [address] CA,Total Normal 8.5-10.1 [facility] Comment on above: Result Comment: Canc elled via OM: Order cancelled - Patient discharged Performed By: #### L 100.0100, L500.2500 ####[facility] [address] [place], [address] CL Normal 98-107 [facility] Comment on above: Result Comment: Canc elled via OM: Order cancelled - Patient discharged Performed By: #### L 100.0100, L500.2500 ####[facility] [address] [place], [address] CO2 Normal 21.0-32.0 [facility] Comment on above: Result Comment: Canc elled via OM: Order cancelled - Patient discharged Performed By: #### L 100.0100, L500.2500 ####[facility] [address] [place], [address] CREAT,SERUM Normal 0.55-1.02 [facility] Comment on above: Result Comment: Canc elled via OM: Order cancelled - Patient discharged Performed By: #### L 100.0100, L500.2500 ####[facility] [address] [place], [address] EST GFR Normal >60 [facility] Comment on above: Result Comment: Canc elled via OM: Order cancelled - Patient discharged Performed By: #### L 100.0100, L500.2500 ####[facility] [address] [place], [address] EST GFR - AA Normal >60 [facility] Comment on above: Result Comment: Canc elled via OM: Order cancelled - Patient discharged Performed By: #### L 100.0100, L500.2500 ####[facility] [address] [place], [address] GAP Normal 5-15 [facility] Comment on above: Result Comment: Canc elled via OM: Order cancelled - Patient discharged Performed By: #### L 100.0100, L500.2500 ####[facility] [address] [place], [address] GLU Normal 74-106 [facility] Comment on above: Result Comment: Canc elled via OM: Order cancelled - Patient discharged Performed By: #### L 100.0100, L500.2500 ####[facility] [address] [place], [address] Potassium Normal 3.5-5.1 [facility] Comment on above: Result Comment: Canc elled via OM: Order cancelled - Patient discharged Performed By: #### L 100.0100, L500.2500 ####[facility] [address] [place], [address] Basic Metabolic Profile (BMP) Normal 136-145 [facility] Comment on above: Result Comment: Canc elled via OM: Order cancelled - Patient discharged Performed By: #### L 100.0100, L500.2500 ####[facility] [address] [place], [address] CBC W/Diff, Automatedon 10-2 Absolute Neut Normal 2.0-7.7 [facility] Comment on above: Result Comment: Canc elled via OM: Order cancelled - Patient discharged Performed By: #### L 100.0100, L500.2500 ####[facility] [address] [place], [address] HCT Normal 37-47 [facility] Comment on above: Result Comment: Canc elled via OM: Order cancelled - Patient discharged Performed By: #### L 100.0100, L500.2500 ####[facility] [address] [place], [address] HGB Normal 12.0-15.0 [facility] Comment on above: Result Comment: Canc elled via OM: Order cancelled - Patient discharged Performed By: #### L 100.0100, L500.2500 ####[facility] [address] [place], [address] MCH Normal 27.0-32.0 [facility] Comment on above: Result Comment: Canc elled via OM: Order cancelled - Patient discharged Performed By: #### L 100.0100, L500.2500 ####[facility] [address] [place], [address] MCHC Normal 32-36 [facility] Comment on above: Result Comment: Canc elled via OM: Order cancelled - Patient discharged Performed By: #### L 100.0100, L500.2500 ####[facility] [address] [place], [address] MCV Normal 81-99 [facility] Comment on above: Result Comment: Canc elled via OM: Order cancelled - Patient discharged Performed By: #### L 100.0100, L500.2500 ####[facility] [address] [place], [address] NEUT% Normal 47-70 [facility] Comment on above: Result Comment: Canc elled via OM: Order cancelled - Patient discharged Performed By: #### L 100.0100, L500.2500 ####[facility] [address] [place], [address] PLT Normal 150-450 [facility] Comment on above: Result Comment: Canc elled via OM: Order cancelled - Patient discharged Performed By: #### L 100.0100, L500.2500 ####[facility] [address] [place], [address] RBC Normal 4.2-5.4 [facility] Comment on above: Result Comment: Canc elled via OM: Order cancelled - Patient discharged Performed By: #### L 100.0100, L500.2500 ####[facility] [address] [place], [address] RDW CV Normal 11.6-14.6 [facility] Comment on above: Result Comment: Canc elled via OM: Order cancelled - Patient discharged Performed By: #### L 100.0100, L500.2500 ####[facility] [address] [place], [address] RDW SD Normal 35.1-43.9 [facility] Comment on above: Result Comment: Canc elled via OM: Order cancelled - Patient discharged Performed By: #### L 100.0100, L500.2500 ####[facility] [address] [place], [address] WBC Normal 4.4-11.0 [facility] Comment on above: Result Comment: Canc elled via OM: Order cancelled - Patient discharged Performed By: #### L 100.0100, L500.2500 ####[facility] [address] [place], [address] Basic Metabolic Profile (BMP )on 03-08-2024 BUN Normal 7-18 [facility] Comment on above: Result Comment: Canc elled via OM: Order cancelled - Patient discharged Performed By: #### L 100.0100, L500.2500 ####[facility] [address] [place], [address] BUN/CRE Normal 10-20 [facility] Comment on above: Result Comment: Canc elled via OM: Order cancelled - Patient discharged Performed By: #### L 100.0100, L500.2500 ####[facility] [address] [place], [address] CA,Total Normal 8.5-10.1 [facility] Comment on above: Result Comment: Canc elled via OM: Order cancelled - Patient discharged Performed By: #### L 100.0100, L500.2500 ####[facility] [address] [place], [address] CL Normal 98-107 [facility] Comment on above: Result Comment: Canc elled via OM: Order cancelled - Patient discharged Performed By: #### L 100.0100, L500.2500 ####[facility] [address] [place], [address] CO2 Normal 21.0-32.0 [facility] Comment on above: Result Comment: Canc elled via OM: Order cancelled - Patient discharged Performed By: #### L 100.0100, L500.2500 ####[facility] [address] [place], [address] CREAT,SERUM Normal 0.55-1.02 [facility] Comment on above: Result Comment: Canc elled via OM: Order cancelled - Patient discharged Performed By: #### L 100.0100, L500.2500 ####[facility] [address] [place], [address] EST GFR Normal >60 [facility] Comment on above: Result Comment: Canc elled via OM: Order cancelled - Patient discharged Performed By: #### L 100.0100, L500.2500 ####[facility] [address] [place], [address] EST GFR - AA Normal >60 [facility] Comment on above: Result Comment: Canc elled via OM: Order cancelled - Patient discharged Performed By: #### L 100.0100, L500.2500 ####[facility] [address] [place], [address] GAP Normal 5-15 [facility] Comment on above: Result Comment: Canc elled via OM: Order cancelled - Patient discharged Performed By: #### L 100.0100, L500.2500 ####[facility] [address] [place], [address] GLU Normal 74-106 [facility] Comment on above: Result Comment: Canc elled via OM: Order cancelled - Patient discharged Performed By: #### L 100.0100, L500.2500 ####[facility] [address] [place], [address] Potassium Normal 3.5-5.1 [facility] Comment on above: Result Comment: Canc elled via OM: Order cancelled - Patient discharged Performed By: #### L 100.0100, L500.2500 ####[facility] [address] [place], [address] Basic Metabolic Profile (BMP) Normal 136-145 [facility] Comment on above: Result Comment: Canc elled via OM: Order cancelled - Patient discharged Performed By: #### L 100.0100, L500.2500 ####[facility] [address] [place], [address] CBC W/Diff, Automatedon 10-2 Absolute Neut Normal 2.0-7.7 [facility] Comment on above: Result Comment: Canc elled via OM: Order cancelled - Patient discharged Performed By: #### L 100.0100, L500.2500 ####[facility] [address] [place], [address] HCT Normal 37-47 [facility] Comment on above: Result Comment: Canc elled via OM: Order cancelled - Patient discharged Performed By: #### L 100.0100, L500.2500 ####[facility] [address] [place], [address] HGB Normal 12.0-15.0 [facility] Comment on above: Result Comment: Canc elled via OM: Order cancelled - Patient discharged Performed By: #### L 100.0100, L500.2500 ####[facility] [address] [place], [address] MCH Normal 27.0-32.0 [facility] Comment on above: Result Comment: Canc elled via OM: Order cancelled - Patient discharged Performed By: #### L 100.0100, L500.2500 ####[facility] [address] [place], [address] MCHC Normal 32-36 [facility] Comment on above: Result Comment: Canc elled via OM: Order cancelled - Patient discharged Performed By: #### L 100.0100, L500.2500 ####[facility] [address] [place], [address] MCV Normal 81-99 [facility] Comment on above: Result Comment: Canc elled via OM: Order cancelled - Patient discharged Performed By: #### L 100.0100, L500.2500 ####[facility] [address] [place], [address] NEUT% Normal 47-70 [facility] Comment on above: Result Comment: Canc elled via OM: Order cancelled - Patient discharged Performed By: #### L 100.0100, L500.2500 ####[facility] [address] [place], [address] PLT Normal 150-450 [facility] Comment on above: Result Comment: Canc elled via OM: Order cancelled - Patient discharged Performed By: #### L 100.0100, L500.2500 ####[facility] [address] [place], [address] RBC Normal 4.2-5.4 [facility] Comment on above: Result Comment: Canc elled via OM: Order cancelled - Patient discharged Performed By: #### L 100.0100, L500.2500 ####[facility] [address] [place], [address] RDW CV Normal 11.6-14.6 [facility] Comment on above: Result Comment: Canc elled via OM: Order cancelled - Patient discharged Performed By: #### L 100.0100, L500.2500 ####[facility] [address] [place], [address] RDW SD Normal 35.1-43.9 [facility] Comment on above: Result Comment: Canc elled via OM: Order cancelled - Patient discharged Performed By: #### L 100.0100, L500.2500 ####[facility] [address] [place], [address] WBC Normal 4.4-11.0 [facility] Comment on above: Result Comment: Canc elled via OM: Order cancelled - Patient discharged Performed By: #### L 100.0100, L500.2500 ####[facility] [address] [place], [address] CR - History AND Physicalon 03-08-2024 CR - History & Physical Normal [facility] Basic Metabolic Profile (BMP )on 03-07-2024 BUN Normal 7-18 [facility] Comment on above: Result Comment: Canc elled via OM: Order cancelled - Patient discharged Performed By: #### L 500.2500, L100.0100 ####[facility] [address] [place], [address] BUN/CRE Normal 10-20 [facility] Comment on above: Result Comment: Canc elled via OM: Order cancelled - Patient discharged Performed By: #### L 500.2500, L100.0100 ####[facility] [address] [place], [address] CA,Total Normal 8.5-10.1 [facility] Comment on above: Result Comment: Canc elled via OM: Order cancelled - Patient discharged Performed By: #### L 500.2500, L100.0100 ####[facility] [address] [place], [address] CL Normal 98-107 [facility] Comment on above: Result Comment: Canc elled via OM: Order cancelled - Patient discharged Performed By: #### L 500.2500, L100.0100 ####[facility] [address] [place], [address] CO2 Normal 21.0-32.0 [facility] Comment on above: Result Comment: Canc elled via OM: Order cancelled - Patient discharged Performed By: #### L 500.2500, L100.0100 ####[facility] [address] [place], [address] CREAT,SERUM Normal 0.55-1.02 [facility] Comment on above: Result Comment: Canc elled via OM: Order cancelled - Patient discharged Performed By: #### L 500.2500, L100.0100 ####[facility] [address] [place], [address] EST GFR Normal >60 [facility] Comment on above: Result Comment: Canc elled via OM: Order cancelled - Patient discharged Performed By: #### L 500.2500, L100.0100 ####[facility] [address] [place], [address] EST GFR - AA Normal >60 [facility] Comment on above: Result Comment: Canc elled via OM: Order cancelled - Patient discharged Performed By: #### L 500.2500, L100.0100 ####[facility] [address] [place], [address] GAP Normal 5-15 [facility] Comment on above: Result Comment: Canc elled via OM: Order cancelled - Patient discharged Performed By: #### L 500.2500, L100.0100 ####[facility] [address] [place], [address] GLU Normal 74-106 [facility] Comment on above: Result Comment: Canc elled via OM: Order cancelled - Patient discharged Performed By: #### L 500.2500, L100.0100 ####[facility] [address] [place], [address] Potassium Normal 3.5-5.1 [facility] Comment on above: Result Comment: Canc elled via OM: Order cancelled - Patient discharged Performed By: #### L 500.2500, L100.0100 ####[facility] [address] [place], [address] Basic Metabolic Profile (BMP) Normal 136-145 [facility] Comment on above: Result Comment: Canc elled via OM: Order cancelled - Patient discharged Performed By: #### L 500.2500, L100.0100 ####[facility] [address] [place], [address] CBC W/Diff, Automatedon 10-2 Absolute Neut Normal 2.0-7.7 [facility] Comment on above: Result Comment: Canc elled via OM: Order cancelled - Patient discharged Performed By: #### L 500.2500, L100.0100 ####[facility] [address] [place], [address] HCT Normal 37-47 [facility] Comment on above: Result Comment: Canc elled via OM: Order cancelled - Patient discharged Performed By: #### L 500.2500, L100.0100 ####[facility] [address] [place], [address] HGB Normal 12.0-15.0 [facility] Comment on above: Result Comment: Canc elled via OM: Order cancelled - Patient discharged Performed By: #### L 500.2500, L100.0100 ####[facility] [address] [place], [address] MCH Normal 27.0-32.0 [facility] Comment on above: Result Comment: Canc elled via OM: Order cancelled - Patient discharged Performed By: #### L 500.2500, L100.0100 ####[facility] [address] [place], [address] MCHC Normal 32-36 [facility] Comment on above: Result Comment: Canc elled via OM: Order cancelled - Patient discharged Performed By: #### L 500.2500, L100.0100 ####[facility] [address] [place], [address] MCV Normal 81-99 [facility] Comment on above: Result Comment: Canc elled via OM: Order cancelled - Patient discharged Performed By: #### L 500.2500, L100.0100 ####[facility] [address] [place], [address] NEUT% Normal 47-70 [facility] Comment on above: Result Comment: Canc elled via OM: Order cancelled - Patient discharged Performed By: #### L 500.2500, L100.0100 ####[facility] [address] [place], [address] PLT Normal 150-450 [facility] Comment on above: Result Comment: Canc elled via OM: Order cancelled - Patient discharged Performed By: #### L 500.2500, L100.0100 ####[facility] [address] [place], [address] RBC Normal 4.2-5.4 [facility] Comment on above: Result Comment: Canc elled via OM: Order cancelled - Patient discharged Performed By: #### L 500.2500, L100.0100 ####[facility] [address] [place], [address] RDW CV Normal 11.6-14.6 [facility] Comment on above: Result Comment: Canc elled via OM: Order cancelled - Patient discharged Performed By: #### L 500.2500, L100.0100 ####[facility] [address] [place], [address] RDW SD Normal 35.1-43.9 [facility] Comment on above: Result Comment: Canc elled via OM: Order cancelled - Patient discharged Performed By: #### L 500.2500, L100.0100 ####[facility] [address] [place], [address] WBC Normal 4.4-11.0 [facility] Comment on above: Result Comment: Canc elled via OM: Order cancelled - Patient discharged Performed By: #### L 500.2500, L100.0100 ####[facility] [address] [place], [address] Basic Metabolic Profile (BMP )on 03-06-2024 BUN Normal 7-18 [facility] Comment on above: Result Comment: Canc elled via OM: Order cancelled - Patient discharged Performed By: #### L 100.0100, L500.2500 ####[facility] [address] [place], [address] BUN/CRE Normal 10-20 [facility] Comment on above: Result Comment: Canc elled via OM: Order cancelled - Patient discharged Performed By: #### L 100.0100, L500.2500 ####[facility] [address] [place], [address] CA,Total Normal 8.5-10.1 [facility] Comment on above: Result Comment: Canc elled via OM: Order cancelled - Patient discharged Performed By: #### L 100.0100, L500.2500 ####[facility] [address] [place], [address] CL Normal 98-107 [facility] Comment on above: Result Comment: Canc elled via OM: Order cancelled - Patient discharged Performed By: #### L 100.0100, L500.2500 ####[facility] [address] [place], [address] CO2 Normal 21.0-32.0 [facility] Comment on above: Result Comment: Canc elled via OM: Order cancelled - Patient discharged Performed By: #### L 100.0100, L500.2500 ####[facility] [address] [place], [address] CREAT,SERUM Normal 0.55-1.02 [facility] Comment on above: Result Comment: Canc elled via OM: Order cancelled - Patient discharged Performed By: #### L 100.0100, L500.2500 ####[facility] [address] [place], [address] EST GFR Normal >60 [facility] Comment on above: Result Comment: Canc elled via OM: Order cancelled - Patient discharged Performed By: #### L 100.0100, L500.2500 ####[facility] [address] [place], [address] EST GFR - AA Normal >60 [facility] Comment on above: Result Comment: Canc elled via OM: Order cancelled - Patient discharged Performed By: #### L 100.0100, L500.2500 ####[facility] [address] [place], [address] GAP Normal 5-15 [facility] Comment on above: Result Comment: Canc elled via OM: Order cancelled - Patient discharged Performed By: #### L 100.0100, L500.2500 ####[facility] [address] [place], [address] GLU Normal 74-106 [facility] Comment on above: Result Comment: Canc elled via OM: Order cancelled - Patient discharged Performed By: #### L 100.0100, L500.2500 ####[facility] [address] [place], [address] Potassium Normal 3.5-5.1 [facility] Comment on above: Result Comment: Canc elled via OM: Order cancelled - Patient discharged Performed By: #### L 100.0100, L500.2500 ####[facility] [address] [place], [address] Basic Metabolic Profile (BMP) Normal 136-145 [facility] Comment on above: Result Comment: Canc elled via OM: Order cancelled - Patient discharged Performed By: #### L 100.0100, L500.2500 ####[facility] [address] [place], [address] CBC W/Diff, Automatedon 10-2 Absolute Neut Normal 2.0-7.7 [facility] Comment on above: Result Comment: Canc elled via OM: Order cancelled - Patient discharged Performed By: #### L 100.0100, L500.2500 ####[facility] [address] [place], [address] HCT Normal 37-47 [facility] Comment on above: Result Comment: Canc elled via OM: Order cancelled - Patient discharged Performed By: #### L 100.0100, L500.2500 ####[facility] [address] [place], [address] HGB Normal 12.0-15.0 [facility] Comment on above: Result Comment: Canc elled via OM: Order cancelled - Patient discharged Performed By: #### L 100.0100, L500.2500 ####[facility] [address] [place], [address] MCH Normal 27.0-32.0 [facility] Comment on above: Result Comment: Canc elled via OM: Order cancelled - Patient discharged Performed By: #### L 100.0100, L500.2500 ####[facility] [address] [place], [address] MCHC Normal 32-36 [facility] Comment on above: Result Comment: Canc elled via OM: Order cancelled - Patient discharged Performed By: #### L 100.0100, L500.2500 ####[facility] [address] [place], [address] MCV Normal 81-99 [facility] Comment on above: Result Comment: Canc elled via OM: Order cancelled - Patient discharged Performed By: #### L 100.0100, L500.2500 ####[facility] [address] [place], [address] NEUT% Normal 47-70 [facility] Comment on above: Result Comment: Canc elled via OM: Order cancelled - Patient discharged Performed By: #### L 100.0100, L500.2500 ####[facility] [address] [place], [address] PLT Normal 150-450 [facility] Comment on above: Result Comment: Canc elled via OM: Order cancelled - Patient discharged Performed By: #### L 100.0100, L500.2500 ####[facility] [address] [place], [address] RBC Normal 4.2-5.4 [facility] Comment on above: Result Comment: Canc elled via OM: Order cancelled - Patient discharged Performed By: #### L 100.0100, L500.2500 ####[facility] [address] [place], [address] RDW CV Normal 11.6-14.6 [facility] Comment on above: Result Comment: Canc elled via OM: Order cancelled - Patient discharged Performed By: #### L 100.0100, L500.2500 ####[facility] [address] [place], [address] RDW SD Normal 35.1-43.9 [facility] Comment on above: Result Comment: Canc elled via OM: Order cancelled - Patient discharged Performed By: #### L 100.0100, L500.2500 ####[facility] [address] [place], [address] WBC Normal 4.4-11.0 [facility] Comment on above: Result Comment: Canc elled via OM: Order cancelled - Patient discharged Performed By: #### L 100.0100, L500.2500 ####[facility] [address] [place], [address] CBC W/Diff, Automatedon 10-2 2-2023 Absolute Lymph 2.27 X10 3/uL Normal 0.83-4.51 [facility] Comment on above: Performed By: #### L 500.4050, L100.0100 ####[facility] [address] [place], [address] Absolute Neut 5.8 X10 3/uL Normal 2.0-7.7 [facility] Comment on above: Performed By: #### L 500.4050, L100.0100 ####[facility] [address] [place], [address] Basophils/100 WBC (Bld) 0.7 % Normal 0-1 [facility] Comment on above: Performed By: #### L 500.4050, L100.0100 ####[facility] [address] [place], [address] Eosinophils/100 WBC (Bld) 1.2 % Normal 0-5 [facility] Comment on above: Performed By: #### L 500.4050, L100.0100 ####[facility] [address] [place], [address] Erythrocyte distribution width (RBC) [Ratio] 13.4 % Normal 11.6-14.6 [facility] Comment on above: Performed By: #### L 500.4050, L100.0100 ####[facility] [address] [place], [address] Hematocrit (Bld) [Volume fraction] 37.5 % Normal 37-47 [facility] Comment on above: Performed By: #### L 500.4050, L100.0100 ####[facility] [address] [place], [address] Hemoglobin (Bld) [Mass/Vol] 13.0 g/dL Normal 12.0-15.0 [facility] Comment on above: Performed By: #### L 500.4050, L100.0100 ####[facility] [address] [place], [address] IG% 0.600 Normal 0.0-0.9 [facility] Comment on above: Result Comment: IG% - Immature Granulocytes (promyelocytes, myelocytes andmetamyelocytes) > 1% indicates that a LEFT SHIFT is Present. Performed By: #### L 500.4050, L100.0100 ####[facility] [address] [place], [address] Lymphocytes/100 WBC (Bld) 25.0 % Normal 19-41 [facility] Comment on above: Performed By: #### L 500.4050, L100.0100 ####[facility] [address] [place], [address] MCH (RBC) [Entitic mass] 32.3 pg High 27.0-32.0 [facility] Comment on above: Performed By: #### L 500.4050, L100.0100 ####[facility] [address] [place], [address] MCHC (RBC) [Mass/Vol] 34.7 g/dL Normal 32-36 [facility] Comment on above: Performed By: #### L 500.4050, L100.0100 ####[facility] [address] [place], [address] MCV (RBC) [Entitic vol] 93.1 fL Normal 81-99 [facility] Comment on above: Performed By: #### L 500.4050, L100.0100 ####[facility] [address] [place], [address] Monocytes/100 WBC (Bld) 8.5 % Normal 0-10 [facility] Comment on above: Performed By: #### L 500.4050, L100.0100 ####[facility] [address] [place], [address] Neutrophils/100 WBC (Bld) 64.0 % Normal 47-70 [facility] Comment on above: Performed By: #### L 500.4050, L100.0100 ####[facility] [address] [place], [address] Nucleated RBC (Bld) [#/Vol] 0 10*3/uL Normal 0-5 [facility] Comment on above: Performed By: #### L 500.4050, L100.0100 ####[facility] [address] [place], [address] Platelet mean volume (Bld) [Entitic vol] 9.7 fL Normal 6.2-12.0 [facility] Comment on above: Performed By: #### L 500.4050, L100.0100 ####[facility] [address] [place], [address] Platelets (Bld) [#/Vol] 280 10*3/uL Normal 150-450 [facility] Comment on above: Performed By: #### L 500.4050, L100.0100 ####[facility] [address] [place], [address] RBC (Bld) [#/Vol] 4.03 10*6/uL Low 4.2-5.4 [facility] Comment on above: Performed By: #### L 500.4050, L100.0100 ####[facility] [address] [place], [address] RDW SD 46.2 fl High 35.1-43.9 [facility] Comment on above: Performed By: #### L 500.4050, L100.0100 ####[facility] [address] [place], [address] WBC (Bld) [#/Vol] 9.1 10*3/uL Normal 4.4-11.0 [facility] Comment on above: Performed By: #### L 500.4050, L100.0100 ####[facility] [address] [place], [address] Comprehensive Metabolic Prof ilon 03-05-2024 Albumin [Mass/Vol] 3.4 g/dL Normal 3.2-5.0 [facility] Comment on above: Performed By: #### L 500.4050, L100.0100 ####[facility] [address] [place], [address] Albumin/Globulin [Mass ratio] 1.1 {ratio} Normal 0.9-2.4 [facility] Comment on above: Performed By: #### L 500.4050, L100.0100 ####[facility] [address] [place], [address] ALK P 58 U/L Normal 45-117 [facility] Comment on above: Performed By: #### L 500.4050, L100.0100 ####[facility] [address] [place], [address] ALT [Catalytic activity/Vol] 17 U/L Normal 13-56 [facility] Comment on above: Performed By: #### L 500.4050, L100.0100 ####[facility] [address] [place], [address] AST [Catalytic activity/Vol] 11 U/L Low 15-37 [facility] Comment on above: Performed By: #### L 500.4050, L100.0100 ####[facility] [address] [place], [address] Bilirubin [Mass/Vol] 0.50 mg/dL Normal 0.20-1.00 [facility] Comment on above: Result Comment: For patients on eltrombopag therapy, use of Dimension [place] TBIL is not recommended. Performed By: #### L 500.4050, L100.0100 ####[facility] [address] [place], [address] BUN/CRE 26.4 RATIO High 10-20 [facility] Comment on above: Performed By: #### L 500.4050, L100.0100 ####[facility] [address] [place], [address] CA,Total 9.0 mg/dL Normal 8.5-10.1 [facility] Comment on above: Performed By: #### L 500.4050, L100.0100 ####[facility] [address] [place], [address] Chloride [Moles/Vol] 110 mmol/L High 98-107 [facility] Comment on above: Performed By: #### L 500.4050, L100.0100 ####[facility] [address] [place], [address] CO2 [Moles/Vol] 24.0 mmol/L Normal 21.0-32.0 [facility] Comment on above: Performed By: #### L 500.4050, L100.0100 ####[facility] [address] [place], [address] Creatinine [Mass/Vol] 0.80 mg/dL Normal 0.55-1.02 [facility] Comment on above: Result Comment: The validity of the calculated GFR GFRAA in patients over70 years has not been determined. Clinical correlation isessential. Performed By: #### L 500.4050, L100.0100 ####[facility] [address] [place], [address] ECRCL 55.55 ml/min Normal [facility] Comment on above: Performed By: #### L 500.4050, L100.0100 ####[facility] [address] [place], [address] EST GFR - AA 91 mL/min Normal >60 [facility] Comment on above: Result Comment: Afri can Eritrean GFR Calc Performed By: #### L 500.4050, L100.0100 ####[facility] [address] [place], [address] GAP 4 Low 5-15 [facility] Comment on above: Performed By: #### L 500.4050, L100.0100 ####[facility] [address] [place], [address] GFR/1.73 sq M.predicted among non-blacks MDRD (S/P/Bld) [Vol rate/Area] 75 mL/min/{1.73_m2} Normal >60 [facility] Comment on above: Result Comment: Non- GFR Calc Performed By: #### L 500.4050, L100.0100 ####[facility] [address] [place], [address] Globulin (S) [Mass/Vol] 3.0 g/dL Normal 2.2-4.2 [facility] Comment on above: Performed By: #### L 500.4050, L100.0100 ####[facility] [address] [place], [address] Glucose [Mass/Vol] 100 mg/dL Normal 74-106 [facility] Comment on above: Result Comment: Fast ing Glucose result from 100 to 125 mg/dLsuggests IMPAIRED HOMEOSTASIS per A.D.A. criteria. Performed By: #### L 500.4050, L100.0100 ####[facility] [address] [place], [address] Potassium [Moles/Vol] 4.3 mmol/L Normal 3.5-5.1 [facility] Comment on above: Performed By: #### L 500.4050, L100.0100 ####[facility] [address] [place], [address] Sodium [Moles/Vol] 137 mmol/L Normal 136-145 [facility] Comment on above: Performed By: #### L 500.4050, L100.0100 ####[facility] [address] [place], [address] T PROT 6.4 g/dL Normal 6.4-8.2 [facility] Comment on above: Performed By: #### L 500.4050, L100.0100 ####[facility] [address] [place], [address] Urea nitrogen [Mass/Vol] 21 mg/dL High 7-18 [facility] Comment on above: Performed By: #### L 500.4050, L100.0100 ####[facility] [address] [place], [address] Echo Completeon 03-05-2024 Echo Complete Normal [facility] 12 Lead EKGon 03-04-2024 12 Lead EKG Normal [facility] ACT Activated Clotting Timeo n 03-04-2024 ACTk CLOT TIME 275 sec High 74-137 [facility] Comment on above: Performed By: #### L 9100.0100 ####[facility] [address] [place], [address] ACTk CLOT TIME 238 sec High 74-137 [facility] Comment on above: Performed By: #### L 9100.0100 ####[facility] [address] [place], [address] Basic Metabolic Profile (BMP )on 03-04-2024 BUN/CRE 25.0 RATIO High 10-20 [facility] Comment on above: Performed By: #### L 100.0100, L500.2500 ####[facility] [address] [place], [address] CA,Total 9.0 mg/dL Normal 8.5-10.1 [facility] Comment on above: Performed By: #### L 100.0100, L500.2500 ####[facility] [address] [place], [address] Chloride [Moles/Vol] 109 mmol/L High 98-107 [facility] Comment on above: Performed By: #### L 100.0100, L500.2500 ####[facility] [address] [place], [address] CO2 [Moles/Vol] 25.0 mmol/L Normal 21.0-32.0 [facility] Comment on above: Performed By: #### L 100.0100, L500.2500 ####[facility] [address] [place], [address] Creatinine [Mass/Vol] 0.76 mg/dL Normal 0.55-1.02 [facility] Comment on above: Result Comment: The validity of the calculated GFR GFRAA in patients over70 years has not been determined. Clinical correlation isessential. Performed By: #### L 100.0100, L500.2500 ####[facility] [address] [place], [address] ECRCL 54.97 ml/min Normal [facility] Comment on above: Performed By: #### L 100.0100, L500.2500 ####[facility] [address] [place], [address] EST GFR - AA 96 mL/min Normal >60 [facility] Comment on above: Result Comment: Afri can [place] GFR Calc Performed By: #### L 100.0100, L500.2500 ####[facility] [address] [place], [address] GAP 4 Low 5-15 [facility] Comment on above: Performed By: #### L 100.0100, L500.2500 ####[facility] [address] [place], [address] GFR/1.73 sq M.predicted among non-blacks MDRD (S/P/Bld) [Vol rate/Area] 79 mL/min/{1.73_m2} Normal >60 [facility] Comment on above: Result Comment: Non- GFR Calc Performed By: #### L 100.0100, L500.2500 ####[facility] [address] [place], [address] Glucose [Mass/Vol] 113 mg/dL High 74-106 [facility] Comment on above: Result Comment: Fast ing Glucose result from 100 to 125 mg/dLsuggests IMPAIRED HOMEOSTASIS per A.D.A. criteria. Performed By: #### L 100.0100, L500.2500 ####[facility] [address] [place], [address] Potassium [Moles/Vol] 4.3 mmol/L Normal 3.5-5.1 [facility] Comment on above: Performed By: #### L 100.0100, L500.2500 ####[facility] [address] [place], [address] Sodium [Moles/Vol] 137 mmol/L Normal 136-145 [facility] Comment on above: Performed By: #### L 100.0100, L500.2500 ####[facility] [address] [place], [address] Urea nitrogen [Mass/Vol] 19 mg/dL High 7-18 [facility] Comment on above: Performed By: #### L 100.0100, L500.2500 ####[facility] [address] [place], [address] CBC W/Diff, Automatedon 10-2 Absolute Lymph 2.23 X10 3/uL Normal 0.83-4.51 [facility] Comment on above: Performed By: #### L 100.0100, L500.2500 ####[facility] [address] [place], [address] Absolute Neut 4.0 X10 3/uL Normal 2.0-7.7 [facility] Comment on above: Performed By: #### L 100.0100, L500.2500 ####[facility] [address] [place], [address] Basophils/100 WBC (Bld) 0.7 % Normal 0-1 [facility] Comment on above: Performed By: #### L 100.0100, L500.2500 ####[facility] [address] [place], [address] Eosinophils/100 WBC (Bld) 0.6 % Normal 0-5 [facility] Comment on above: Performed By: #### L 100.0100, L500.2500 ####[facility] [address] [place], [address] Erythrocyte distribution width (RBC) [Ratio] 13.3 % Normal 11.6-14.6 [facility] Comment on above: Performed By: #### L 100.0100, L500.2500 ####[facility] [address] [place], [address] Hematocrit (Bld) [Volume fraction] 35.0 % Low 37-47 [facility] Comment on above: Performed By: #### L 100.0100, L500.2500 ####[facility] [address] [place], [address] Hemoglobin (Bld) [Mass/Vol] 11.7 g/dL Low 12.0-15.0 [facility] Comment on above: Performed By: #### L 100.0100, L500.2500 ####[facility] [address] [place], [address] IG% 0.600 Normal 0.0-0.9 [facility] Comment on above: Result Comment: IG% - Immature Granulocytes (promyelocytes, myelocytes andmetamyelocytes) > 1% indicates that a LEFT SHIFT is Present. Performed By: #### L 100.0100, L500.2500 ####[facility] [address] [place], [address] Lymphocytes/100 WBC (Bld) 31.9 % Normal 19-41 [facility] Comment on above: Performed By: #### L 100.0100, L500.2500 ####[facility] [address] [place], [address] MCH (RBC) [Entitic mass] 31.0 pg Normal 27.0-32.0 [facility] Comment on above: Performed By: #### L 100.0100, L500.2500 ####[facility] [address] [place], [address] MCHC (RBC) [Mass/Vol] 33.4 g/dL Normal 32-36 [facility] Comment on above: Performed By: #### L 100.0100, L500.2500 ####[facility] [address] [place], [address] MCV (RBC) [Entitic vol] 92.6 fL Normal 81-99 [facility] Comment on above: Performed By: #### L 100.0100, L500.2500 ####[facility] [address] [place], [address] Monocytes/100 WBC (Bld) 9.2 % Normal 0-10 [facility] Comment on above: Performed By: #### L 100.0100, L500.2500 ####[facility] [address] [place], [address] Neutrophils/100 WBC (Bld) 57.0 % Normal 47-70 [facility] Comment on above: Performed By: #### L 100.0100, L500.2500 ####[facility] [address] [place], [address] Nucleated RBC (Bld) [#/Vol] 0 10*3/uL Normal 0-5 [facility] Comment on above: Performed By: #### L 100.0100, L500.2500 ####[facility] [address] [place], [address] Platelet mean volume (Bld) [Entitic vol] 9.7 fL Normal 6.2-12.0 [facility] Comment on above: Performed By: #### L 100.0100, L500.2500 ####[facility] [address] [place], [address] Platelets (Bld) [#/Vol] 247 10*3/uL Normal 150-450 [facility] Comment on above: Performed By: #### L 100.0100, L500.2500 ####[facility] [address] [place], [address] RBC (Bld) [#/Vol] 3.78 10*6/uL Low 4.2-5.4 [facility] Comment on above: Performed By: #### L 100.0100, L500.2500 ####[facility] [address] [place], [address] RDW SD 45.2 fl High 35.1-43.9 [facility] Comment on above: Performed By: #### L 100.0100, L500.2500 ####[facility] [address] [place], [address] WBC (Bld) [#/Vol] 7.0 10*3/uL Normal 4.4-11.0 [facility] Comment on above: Performed By: #### L 100.0100, L500.2500 ####[facility] [address] [place], [address] Cardiac Cath Interventionon 03-04-2024 Cardiac Cath Intervention Normal [facility] Consultation - Cardiologyon 03-04-2024 Consultation - Cardiology Normal [facility] Stress Reporton 03-04-2024 Stress Report Normal [facility] Basic Metabolic Profile (BMP )on 03-03-2024 BUN/CRE 26.4 RATIO High 03-03 [facility] Comment on above: Performed By: #### L 500.2500, L100.0100, L500.4100, L501.9520 ####[facility] [address] [place], [address] CA,Total 8.6 mg/dL Normal 8.5-10.1 [facility] Comment on above: Performed By: #### L 500.2500, L100.0100, L500.4100, L501.9520 ####[facility] [address] [place], [address] Chloride [Moles/Vol] 109 mmol/L High 98-107 [facility] Comment on above: Performed By: #### L 500.2500, L100.0100, L500.4100, L501.9520 ####[facility] [address] [place], [address] CO2 [Moles/Vol] 25.0 mmol/L Normal 21.0-32.0 [facility] Comment on above: Performed By: #### L 500.2500, L100.0100, L500.4100, L501.9520 ####[facility] [address] [place], [address] Creatinine [Mass/Vol] 0.80 mg/dL Normal 0.55-1.02 [facility] Comment on above: Result Comment: The validity of the calculated GFR GFRAA in patients over70 years has not been determined. Clinical correlation isessential. Performed By: #### L 500.2500, L100.0100, L500.4100, L501.9520 ####[facility] [address] [place], [address] ECRCL 54.97 ml/min Normal [facility] Comment on above: Performed By: #### L 500.2500, L100.0100, L500.4100, L501.9520 ####[facility] [address] [place], [address] EST GFR - AA 91 mL/min Normal >60 [facility] Comment on above: Result Comment: Afri can Eritrean GFR Calc Performed By: #### L 500.2500, L100.0100, L500.4100, L501.9520 ####[facility] [address] [place], [address] GAP 4 Low 5-15 [facility] Comment on above: Performed By: #### L 500.2500, L100.0100, L500.4100, L501.9520 ####[facility] [address] [place], [address] GFR/1.73 sq M.predicted among non-blacks MDRD (S/P/Bld) [Vol rate/Area] 75 mL/min/{1.73_m2} Normal >60 [facility] Comment on above: Result Comment: Non- GFR Calc Performed By: #### L 500.2500, L100.0100, L500.4100, L501.9520 ####[facility] [address] [place], [address] Glucose [Mass/Vol] 127 mg/dL High 74-106 [facility] Comment on above: Result Comment: Fast ing Glucose result greater than or equal to 126 mg/dLsuggests DIABETES MELLITUS per A.D.A. criteria. Performed By: #### L 500.2500, L100.0100, L500.4100, L501.9520 ####[facility] [address] [place], [address] Potassium [Moles/Vol] 3.7 mmol/L Normal 3.5-5.1 [facility] Comment on above: Performed By: #### L 500.2500, L100.0100, L500.4100, L501.9520 ####[facility] [address] [place], [address] Sodium [Moles/Vol] 138 mmol/L Normal 136-145 [facility] Comment on above: Performed By: #### L 500.2500, L100.0100, L500.4100, L501.9520 ####[facility] [address] [place], [address] Urea nitrogen [Mass/Vol] 21 mg/dL High 7-18 [facility] Comment on above: Performed By: #### L 500.2500, L100.0100, L500.4100, L501.9520 ####[facility] [address] [place], [address] CBC W/Diff, Automatedon 10-2 0-2024 Absolute Lymph 2.22 X10 3/uL Normal 0.83-4.51 [facility] Comment on above: Performed By: #### L 500.2500, L100.0100, L500.4100, L501.9520 ####[facility] [address] [place], [address] Absolute Neut 5.6 X10 3/uL Normal 2.0-7.7 [facility] Comment on above: Performed By: #### L 500.2500, L100.0100, L500.4100, L501.9520 ####[facility] [address] [place], [address] Basophils/100 WBC (Bld) 0.3 % Normal 0-1 [facility] Comment on above: Performed By: #### L 500.2500, L100.0100, L500.4100, L501.9520 ####[facility] [address] [place], [address] Eosinophils/100 WBC (Bld) 0.1 % Normal 0-5 [facility] Comment on above: Performed By: #### L 500.2500, L100.0100, L500.4100, L501.9520 ####[facility] [address] [place], [address] Erythrocyte distribution width (RBC) [Ratio] 13.2 % Normal 11.6-14.6 [facility] Comment on above: Performed By: #### L 500.2500, L100.0100, L500.4100, L501.9520 ####[facility] [address] [place], [address] Hematocrit (Bld) [Volume fraction] 34.2 % Low 37-47 [facility] Comment on above: Performed By: #### L 500.2500, L100.0100, L500.4100, L501.9520 ####[facility] [address] [place], [address] Hemoglobin (Bld) [Mass/Vol] 11.7 g/dL Low 12.0-15.0 [facility] Comment on above: Performed By: #### L 500.2500, L100.0100, L500.4100, L501.9520 ####[facility] [address] [place], [address] IG% 0.500 Normal 0.0-0.9 [facility] Comment on above: Result Comment: IG% - Immature Granulocytes (promyelocytes, myelocytes andmetamyelocytes) > 1% indicates that a LEFT SHIFT is Present. Performed By: #### L 500.2500, L100.0100, L500.4100, L501.9520 ####[facility] [address] [place], [address] Lymphocytes/100 WBC (Bld) 25.8 % Normal 19-41 [facility] Comment on above: Performed By: #### L 500.2500, L100.0100, L500.4100, L501.9520 ####[facility] [address] [place], [address] MCH (RBC) [Entitic mass] 31.4 pg Normal 27.0-32.0 [facility] Comment on above: Performed By: #### L 500.2500, L100.0100, L500.4100, L501.9520 ####[facility] [address] [place], [address] MCHC (RBC) [Mass/Vol] 34.2 g/dL Normal 32-36 [facility] Comment on above: Performed By: #### L 500.2500, L100.0100, L500.4100, L501.9520 ####[facility] [address] [place], [address] MCV (RBC) [Entitic vol] 91.7 fL Normal 81-99 [facility] Comment on above: Performed By: #### L 500.2500, L100.0100, L500.4100, L501.9520 ####[facility] [address] [place], [address] Monocytes/100 WBC (Bld) 8.1 % Normal 0-10 [facility] Comment on above: Performed By: #### L 500.2500, L100.0100, L500.4100, L501.9520 ####[facility] [address] [place], [address] Neutrophils/100 WBC (Bld) 65.2 % Normal 47-70 [facility] Comment on above: Performed By: #### L 500.2500, L100.0100, L500.4100, L501.9520 ####[facility] [address] [place], [address] Nucleated RBC (Bld) [#/Vol] 0 10*3/uL Normal 0-5 [facility] Comment on above: Performed By: #### L 500.2500, L100.0100, L500.4100, L501.9520 ####[facility] [address] [place], [address] Platelet mean volume (Bld) [Entitic vol] 9.5 fL Normal 6.2-12.0 [facility] Comment on above: Performed By: #### L 500.2500, L100.0100, L500.4100, L501.9520 ####[facility] [address] [place], [address] Platelets (Bld) [#/Vol] 226 10*3/uL Normal 150-450 [facility] Comment on above: Performed By: #### L 500.2500, L100.0100, L500.4100, L501.9520 ####[facility] [address] [place], [address] RBC (Bld) [#/Vol] 3.73 10*6/uL Low 4.2-5.4 [facility] Comment on above: Performed By: #### L 500.2500, L100.0100, L500.4100, L501.9520 ####[facility] [address] [place], [address] RDW SD 45.1 fl High 35.1-43.9 [facility] Comment on above: Performed By: #### L 500.2500, L100.0100, L500.4100, L501.9520 ####[facility] [address] [place], [address] WBC (Bld) [#/Vol] 8.6 10*3/uL Normal 4.4-11.0 [facility] Comment on above: Performed By: #### L 500.2500, L100.0100, L500.4100, L501.9520 ####[facility] [address] [place], [address] Lipid Profileon 03-03-2024 CHOL Normal 200 [facility] Comment on above: Result Comment: MAJOR LEUNG CHARGE NURSE, PATIENT HAD DONE THISMORNING Performed By: #### L 500.4100 ####[facility] [address] [place], [address] HDL Normal [facility] Comment on above: Result Comment: DUPL ICATE PER SIERRA CHARGE NURSE, PATIENT HAD DONE THISMORNING Performed By: #### L 500.4100 ####[facility] [address] [place], [address] LDL Normal 0-130 [facility] Comment on above: Result Comment: DUPL ICATE PER SIERRA CHARGE NURSE, PATIENT HAD DONE THISMORNING Performed By: #### L 500.4100 ####[facility] [address] [place], [address] TRIG Normal [facility] Comment on above: Result Comment: DUPL ICATE PER SIERRA CHARGE NURSE, PATIENT HAD DONE THISMORNING Performed By: #### L 500.4100 ####[facility] [address] [place], [address] VLDL Normal 5-40 [facility] Comment on above: Result Comment: DUPL ICATE PER SIERRA CHARGE NURSE, PATIENT HAD DONE THISMORNING Performed By: #### L 500.4100 ####[facility] [address] [place], [address] Cholesterol [Mass/Vol] 204 mg/dL High 200 [facility] Comment on above: Result Comment: <200 mg/dL Desirable 200-240 mg/dL Borderline >240 mg/dL High Risk Performed By: #### L 500.2500, L100.0100, L500.4100, L501.9520 ####[facility] [address] [place], [address] Cholesterol in HDL [Mass/Vol] 69 mg/dL Normal [facility] Comment on above: Result Comment: The drugs N-Acetylcysteine and Metamizole may falselydepress this assay. Reference Range HDL <40 mg/dL Low HDL Cholesterol HDL >or= 60 mg/dL High HDL Cholesterol Performed By: #### L 500.2500, L100.0100, L500.4100, L501.9520 ####[facility] [address] [place], [address] Cholesterol in LDL [Mass/Vol] 120 mg/dL Normal 0-130 [facility] Comment on above: Performed By: #### L 500.2500, L100.0100, L500.4100, L501.9520 ####[facility] [address] [place], [address] Cholesterol in VLDL [Mass/Vol] 15 mg/dL Normal 5-40 [facility] Comment on above: Performed By: #### L 500.2500, L100.0100, L500.4100, L501.9520 ####[facility] [address] [place], [address] Triglyceride [Mass/Vol] 75 mg/dL Normal [facility] Comment on above: Result Comment: The drugs N-Acetylcysteine and Metamizole may falselydepress this assay.Serum Triglycerides Reference Interval Normal <150 mg/dL Borderline high 150 - 199 mg/dL High 200 - 499 mg/dL Very High > or = 500 mg/dL Performed By: #### L 500.2500, L100.0100, L500.4100, L501.9520 ####[facility] [address] [place], [address] Thyroid Stim Hormone (TSH)on 03-03-2024 TSH 0.366 uIU/mL Normal 0.358-3.740 [facility] Comment on above: Performed By: #### L 500.2500, L100.0100, L500.4100, L501.9520 ####[facility] [address] [place], [address] 12 Lead EKGon 03-02-2024 12 Lead EKG Normal [facility] BNP,B-Type NATRIURETIC PEPTI Travis 03-02-2024 Natriuretic peptide B (Bld) [Mass/Vol] 106.4 pg/mL High 0-100 [facility] Comment on above: Performed By: #### L 501.5200, L500.2500, L100.0100, L501.9520, L501.5425, L300.8000, L503.6620 ####[facility] [address] [place], [address] Basic Metabolic Profile (BMP )on 03-02-2024 BUN/CRE 16.5 RATIO Normal 10-20 [facility] Comment on above: Order Comment: 1Y Performed By: #### L 501.5200, L500.2500, L100.0100, L501.9520, L501.5425, L300.8000, L503.6620 ####[facility] [address] [place], [address] CA,Total 9.2 mg/dL Normal 8.5-10.1 [facility] Comment on above: Order Comment: 1Y Performed By: #### L 501.5200, L500.2500, L100.0100, L501.9520, L501.5425, L300.8000, L503.6620 ####[facility] [address] [place], [address] Chloride [Moles/Vol] 107 mmol/L Normal 98-107 [facility] Comment on above: Order Comment: 1Y Performed By: #### L 501.5200, L500.2500, L100.0100, L501.9520, L501.5425, L300.8000, L503.6620 ####[facility] [address] [place], [address] CO2 [Moles/Vol] 29.0 mmol/L Normal 21.0-32.0 [facility] Comment on above: Order Comment: 1Y Performed By: #### L 501.5200, L500.2500, L100.0100, L501.9520, L501.5425, L300.8000, L503.6620 ####[facility] [address] [place], [address] Creatinine [Mass/Vol] 0.85 mg/dL Normal 0.55-1.02 [facility] Comment on above: Order Comment: 1Y Result Comment: The validity of the calculated GFR GFRAA in patients over70 years has not been determined. Clinical correlation isessential. Performed By: #### L 501.5200, L500.2500, L100.0100, L501.9520, L501.5425, L300.8000, L503.6620 ####[facility] [address] [place], [place], [phone] ECRCL 52.07 ml/min Normal [facility] Comment on above: Order Comment: 1Y Performed By: #### L 501.5200, L500.2500, L100.0100, L501.9520, L501.5425, L300.8000, L503.6620 ####[facility] [address] [place], [address] EST GFR - AA 84 mL/min Normal >60 [facility] Comment on above: Order Comment: 1Y Result Comment: Afri can Eritrean GFR Calc Performed By: #### L 501.5200, L500.2500, L100.0100, L501.9520, L501.5425, L300.8000, L503.6620 ####[facility] [address] [place], [address] GAP 2 Low 5-15 [facility] Comment on above: Order Comment: 1Y Performed By: #### L 501.5200, L500.2500, L100.0100, L501.9520, L501.5425, L300.8000, L503.6620 ####[facility] [address] [place], [address]([phone] GFR/1.73 sq M.predicted among non-blacks MDRD (S/P/Bld) [Vol rate/Area] 69 mL/min/{1.73_m2} Normal >60 [facility] Comment on above: Order Comment: 1Y Result Comment: Non- GFR Calc Performed By: #### L 501.5200, L500.2500, L100.0100, L501.9520, L501.5425, L300.8000, L503.6620 ####[facility] [address] [place], [address] Glucose [Mass/Vol] 139 mg/dL High 74-106 [facility] Comment on above: Order Comment: 1Y Result Comment: Fast ing Glucose result greater than or equal to 126 mg/dLsuggests DIABETES MELLITUS per A.D.A. criteria. Performed By: #### L 501.5200, L500.2500, L100.0100, L501.9520, L501.5425, L300.8000, L503.6620 ####[facility] [address] [place], [address] Potassium [Moles/Vol] 4.1 mmol/L Normal 3.5-5.1 [facility] Comment on above: Order Comment: 1Y Performed By: #### L 501.5200, L500.2500, L100.0100, L501.9520, L501.5425, L300.8000, L503.6620 ####[facility] [address] [place], [address] Sodium [Moles/Vol] 138 mmol/L Normal 136-145 [facility] Comment on above: Order Comment: 1Y Performed By: #### L 501.5200, L500.2500, L100.0100, L501.9520, L501.5425, L300.8000, L503.6620 ####[facility] [address] [place], [address] Urea nitrogen [Mass/Vol] 14 mg/dL Normal 7-18 [facility] Comment on above: Order Comment: 1Y Performed By: #### L 501.5200, L500.2500, L100.0100, L501.9520, L501.5425, L300.8000, L503.6620 ####[facility] [address] [place], [address] CBC W/Diff, Automatedon 10- Absolute Lymph 2.10 X10 3/uL Normal 0.83-4.51 [facility] Comment on above: Performed By: #### L 501.5200, L500.2500, L100.0100, L501.9520, L501.5425, L300.8000, L503.6620 ####[facility] [address] [place], [address] Absolute Neut 8.8 X10 3/uL High 2.0-7.7 [facility] Comment on above: Performed By: #### L 501.5200, L500.2500, L100.0100, L501.9520, L501.5425, L300.8000, L503.6620 ####[facility] [address] [place], [address] Basophils/100 WBC (Bld) 0.3 % Normal 0-1 [facility] Comment on above: Performed By: #### L 501.5200, L500.2500, L100.0100, L501.9520, L501.5425, L300.8000, L503.6620 ####[facility] [address] [place], [address] Eosinophils/100 WBC (Bld) 0.0 % Normal 0-5 [facility] Comment on above: Performed By: #### L 501.5200, L500.2500, L100.0100, L501.9520, L501.5425, L300.8000, L503.6620 ####[facility] [address] [place], [address] Erythrocyte distribution width (RBC) [Ratio] 12.9 % Normal 11.6-14.6 [facility] Comment on above: Performed By: #### L 501.5200, L500.2500, L100.0100, L501.9520, L501.5425, L300.8000, L503.6620 ####[facility] [address] [place], [address] Hematocrit (Bld) [Volume fraction] 42.2 % Normal 37-47 [facility] Comment on above: Performed By: #### L 501.5200, L500.2500, L100.0100, L501.9520, L501.5425, L300.8000, L503.6620 ####[facility] [address] [place], [address] Hemoglobin (Bld) [Mass/Vol] 14.0 g/dL Normal 12.0-15.0 [facility] Comment on above: Performed By: #### L 501.5200, L500.2500, L100.0100, L501.9520, L501.5425, L300.8000, L503.6620 ####[facility] [address] [place], [address] IG% 0.400 Normal 0.0-0.9 [facility] Comment on above: Result Comment: IG% - Immature Granulocytes (promyelocytes, myelocytes andmetamyelocytes) > 1% indicates that a LEFT SHIFT is Present. Performed By: #### L 501.5200, L500.2500, L100.0100, L501.9520, L501.5425, L300.8000, L503.6620 ####[facility] [address] [place], [address] Lymphocytes/100 WBC (Bld) 18.1 % Low 19-41 [facility] Comment on above: Performed By: #### L 501.5200, L500.2500, L100.0100, L501.9520, L501.5425, L300.8000, L503.6620 ####[facility] [address] [place], [address] MCH (RBC) [Entitic mass] 30.9 pg Normal 27.0-32.0 [facility] Comment on above: Performed By: #### L 501.5200, L500.2500, L100.0100, L501.9520, L501.5425, L300.8000, L503.6620 ####[facility] [address] [place], [address] MCHC (RBC) [Mass/Vol] 33.2 g/dL Normal 32-36 [facility] Comment on above: Performed By: #### L 501.5200, L500.2500, L100.0100, L501.9520, L501.5425, L300.8000, L503.6620 ####[facility] [address] [place], [address] MCV (RBC) [Entitic vol] 93.2 fL Normal 81-99 [facility] Comment on above: Performed By: #### L 501.5200, L500.2500, L100.0100, L501.9520, L501.5425, L300.8000, L503.6620 ####[facility] [address] [place], [address] Monocytes/100 WBC (Bld) 5.3 % Normal 0-10 [facility] Comment on above: Performed By: #### L 501.5200, L500.2500, L100.0100, L501.9520, L501.5425, L300.8000, L503.6620 ####[facility] [address] [place], [address] Neutrophils/100 WBC (Bld) 75.9 % High 47-70 [facility] Comment on above: Performed By: #### L 501.5200, L500.2500, L100.0100, L501.9520, L501.5425, L300.8000, L503.6620 ####[facility] [address] [place], [address] Nucleated RBC (Bld) [#/Vol] 0 10*3/uL Normal 0-5 [facility] Comment on above: Performed By: #### L 501.5200, L500.2500, L100.0100, L501.9520, L501.5425, L300.8000, L503.6620 ####[facility] [address] [place], [address] Platelet mean volume (Bld) [Entitic vol] 9.9 fL Normal 6.2-12.0 [facility] Comment on above: Performed By: #### L 501.5200, L500.2500, L100.0100, L501.9520, L501.5425, L300.8000, L503.6620 ####[facility] [address] [place], [address] Platelets (Bld) [#/Vol] 318 10*3/uL Normal 150-450 [facility] Comment on above: Performed By: #### L 501.5200, L500.2500, L100.0100, L501.9520, L501.5425, L300.8000, L503.6620 ####[facility] [address] [place], [address] RBC (Bld) [#/Vol] 4.53 10*6/uL Normal 4.2-5.4 [facility] Comment on above: Performed By: #### L 501.5200, L500.2500, L100.0100, L501.9520, L501.5425, L300.8000, L503.6620 ####[facility] [address] [place], [address] RDW SD 44.0 fl High 35.1-43.9 [facility] Comment on above: Performed By: #### L 501.5200, L500.2500, L100.0100, L501.9520, L501.5425, L300.8000, L503.6620 ####[facility] [address] [place], [address] WBC (Bld) [#/Vol] 11.6 10*3/uL High 4.4-11.0 [facility] Comment on above: Performed By: #### L 501.5200, L500.2500, L100.0100, L501.9520, L501.5425, L300.8000, L503.6620 ####[facility] [address] [place], [place], [id number] Chest 1 View (Portable)on Chest 1 View (Portable) Normal [facility] D-Dimer Quantitative (DVT/PE )on 03-02-2024 D-DIMER QUANT 0.41 FEU/ug/m Normal 0.27-0.49 [facility] Comment on above: Result Comment: NORM AL D-Dimer level (<0.50) indicates no DVT or PE. Performed By: #### L 501.5200, L500.2500, L100.0100, L501.9520, L501.5425, L300.8000, L503.6620 ####[facility] [address] [place], [place], [id number] Emergency Department Summary on 03-02-2024 Emergency Department Summary Normal [facility] H AND P Exam - Hospitaliston 03-02-2024 H&P Exam - Hospitalist Normal [facility] L501.4020on 03-02-2024 TROPONIN-I HS 40 pg/mL Normal 3.0-54.0 [facility] Comment on above: Order Comment: Comme nts: SPECIMEN #3'TROP' Serial specimen #1, #2 or #3: 33 Result Comment: Plea se Note: New Test Units and Gender Specific Reference Ranges. For more information see Policy Stat Procedure [place] High Sensitivity Troponin (TNIH) and attachments. Performed By: #### L 501.4020 ####[facility] [address] [place], [address] TROPONIN-I HS 39 pg/mL Normal 3.0-54.0 [facility] Comment on above: Result Comment: Plea se Note: New Test Units and Gender Specific Reference Ranges. For more information see Policy Stat Procedure [place] High Sensitivity Troponin (TNIH) and attachments. Performed By: #### L 501.4020 ####[facility] [address] [place], [address] L501.5425on 03-02-2024 TROPONIN-I HS 26 pg/mL Normal 3.0-54.0 [facility] Comment on above: Order Comment: 1Y Result Comment: Plea se Note: New Test Units and Gender Specific Reference Ranges. For more information see Policy Stat Procedure [place] High Sensitivity Troponin (TNIH) and attachments. Performed By: #### L 501.5200, L500.2500, L100.0100, L501.9520, L501.5425, L300.8000, L503.6620 ####[facility] [address] [place], [address] M100.678on 03-02-2024 M100.678 Pending SARS-CoV-2 (COVID 19) Negative INFLUENZA A Negative INFLUENZA B Negative RSV PCR Negative Normal [facility] Comment on above: Performed By: #### M 100.678 ####[facility] [address] [place], [address] Magnesiumon 03-02-2024 Magnesium [Mass/Vol] 1.9 mg/dL Normal 1.6-2.6 [facility] Comment on above: Performed By: #### L 501.5200 ####[facility] [address] [place], [address] Magnesium [Mass/Vol] 2.1 mg/dL Normal 1.6-2.6 [facility] Comment on above: Order Comment: 1Y Performed By: #### L 501.5200, L500.2500, L100.0100, L501.9520, L501.5425, L300.8000, L503.6620 ####[facility] [address] [place], [address] Thyroid Stim Hormone (TSH)on 03-02-2024 TSH 0.319 uIU/mL Low 0.358-3.740 [facility] Comment on above: Order Comment: 1Y Performed By: #### L 501.5200, L500.2500, L100.0100, L501.9520, L501.5425, L300.8000, L503.6620 ####[facility] [address] [place], [address] CNOVon 02-07-2024 CNOV Office Visit (INTMWS ) AMINA TOBAR ([id number]) 1950 F NFR Date Time Provider Department 02/07/24 8:00 AM FIORELLA HALL INTMWS During your visit today, we recorded the following information about you: Pulse Respiration Blood pressure Weight 78/minute 16/minute 124/72 68.9 kg Height 1.524 m Fiorella Hall MD 03/14/2024 9:32 PM Signed This note was created using [employer]. Subjective Amina Tobar is a 73 year old female. HISTORY Amina Tobar is a 73 year old lady here for Medicare Annual Wellness Visit, yearly exam and follow up appointment. The patient is a 73-year-old female with a history of hypothyroidism, hypercholesterolemia, and osteoporosis, presenting for a Medicare Annual Wellness Visit. The patient reports not feeling well for the past few months, with symptoms including fatigue, mental fogginess, and myalgia. She was recently treated for a UTI by [facility] last week. She has been taking Synthroid 50 mcg daily for hypothyroidism and recently increased the dose to 100 mcg for two days due to feeling unwell. She takes Synthroid, omeprazole, and hydrochlorothiazide together in the morning for the past 8-9 years. She also takes magnesium nightly to aid sleep and reports no issues with loose stools or diarrhea. She denies any issues with her dentures. She reports a history of hypercholesterolemia but has not been taking her medication due to experiencing myalgia, which she attributes to the medication. She also reports a history of osteoporosis and received a bone infusion last year. She is due for another infusion in March. She reports a history of cataracts and is due for an eye appointment. She also reports a history of reflux and is taking omeprazole as needed. She reports a history of back spasms and has been taking cyclobenzaprine as needed. She also reports a history of anxiety and has been taking lorazepam as needed. She denies any issues with sexual function, anxiety, stress, anger, irritability, loneliness, or thoughts of self-harm. She reports a history of falls, with the most recent fall occurring while trying to get her cat into a carrier. She reports a history of balance issues, particularly when turning quickly. She denies any issues with hearing or vision. She reports a history of alcohol use, drinking 1 drink 2-4 times a month. She denies any use of tobacco products. She reports eating healthy foods more than half the days of the week. She reports exercising daily, including walking, biking, and yoga. She denies needing any help with activities of daily living. She reports a history of mammograms and is due for her next one. She also reports a history of colonoscopies, with the most recent one being last year. She denies any changes in family history. She has an advanced directive in place. PAST MEDICAL HISTORY Diagnosis Date Allergic rhinitis, [...] Take 1 tablet by mouth once daily. Cholecalciferol (more content not included)... Normal [facility] 02-07-2024 [facility] Telephone (INTMWS) AMINA TOBAR ([id number]) 1950 F NFR Date Time Provider Department 02/07/24 FIORELLA HALL INTJorge LuisWS During your visit today, we recorded the [...] confirmed this date, time and location. Shaniqua Ramsay Pss Allergies As of Date: 02/07/2024 Noted Allergy [...] Status:Closed by SHANIQUA TREVINO on 02/07/24 Normal [facility] 25(OH)D3 Ethanmaryam-Veronica 2023 25-hydroxyvitamin D3 [Mass/Vol] 35.7 ng/mL Normal 31.0-80.0 [facility] Comment on above: Order Comment: Speci men Type: BLOOD SPECIMENOrdering Facility: [facility] Address: [address] [place] [address] Result Comment: Clas sification of 25 [place] Vitamin D status: Deficiency/Insufficiency: < or = 30 ng/ml. Sufficiency/Optimal Levels: 31-80 ng/mL Toxicity: > 100 ng/mL. Test performed by chemiluminescent immunoassay. Performed By: #### 1 989-3 ####[facility] LABCLIA [id number] [place] [address] [place] CBC panel Auto (Bld)on 02-01 Erythrocyte distribution width (RBC) [Ratio] 12.5 % Normal 11.5-15.0 [facility] Comment on above: Order Comment: Speci men Type: BLOOD SPECIMENOrdering Facility: [facility] Address: [address] [place] [address] Performed By: #### 5 8410-2 ####[facility] [id number] [place] [address] [place] Hematocrit (Bld) [Volume fraction] 39.0 % Normal 36.0-46.0 [facility] Comment on above: Order Comment: Speci men Type: BLOOD SPECIMENOrdering Facility: [facility] Address: [address] [place] [address] Performed By: #### 5 8410-2 ####[facility]ITALNCLI [id number] [place] [address] [place] Hemoglobin (Bld) [Mass/Vol] 13.5 g/dL Normal 11.5-15.5 [facility] Comment on above: Order Comment: Speci men Type: BLOOD SPECIMENOrdering Facility: [facility] Address: [address] [place] [address] Performed By: #### 5 8410-2 ####[facility] [id number] [place] [address] [place] MCH (RBC) [Entitic mass] 31.3 pg Normal 26.0-34.0 [facility] Comment on above: Order Comment: Speci men Type: BLOOD SPECIMENOrdering Facility: [facility] Address: [address] [place] [address] Performed By: #### 5 8410-2 ####[facility] [id number] [place] [address] [place] MCHC (RBC) [Mass/Vol] 34.6 g/dL Normal 30.5-36.0 [facility] Comment on above: Order Comment: Speci men Type: BLOOD SPECIMENOrdering Facility: [facility] Address: [address] [place] [address] Performed By: #### 5 8410-2 ####[facility]ITAL[facility]CLI [id number] [place] [address] [place] MCV (RBC) [Entitic vol] 90.3 fL Normal 80.0-100.0 [facility] Comment on above: Order Comment: Speci men Type: BLOOD SPECIMENOrdering Facility: [facility] Address: [address] [place], [place] [address] Performed By: #### 5 8410-2 ####[facility] [id number] [place] [address] [place] Nucleated RBC (Bld) [#/Vol] 10*3/uL Normal <0.01 [facility] Comment on above: Order Comment: Speci men Type: BLOOD SPECIMENOrdering Facility: [facility] Address: [address] [place] [address] Performed By: #### 5 8410-2 ####[facility] LISANCSHANA [id number] [place] [address] [place] Platelet mean volume (Bld) [Entitic vol] 9.4 fL Normal 9.0-12.7 [facility] Comment on above: Order Comment: Speci men Type: BLOOD SPECIMENOrdering Facility: [facility] Address: [address] [place] [address] Performed By: #### 5 8410-2 ####[facility] LISANCSHANA [id number] [place] [address] [place] Platelets (Bld) [#/Vol] 267 10*3/uL Normal 150-400 [facility] Comment on above: Order Comment: Speci men Type: BLOOD SPECIMENOrdering Facility: [facility] Address: [address] [place] [address] Performed By: #### 5 8410-2 ####[facility] SHANDRATHORNTONNCBLANCAA [id number] [place] [address] [place] RBC (Bld) [#/Vol] 4.32 10*6/uL Normal 3.90-5.20 [facility] Comment on above: Order Comment: Speci men Type: BLOOD SPECIMENOrdering Facility: [facility] Address: [address] [place] [address] Performed By: #### 5 8410-2 ####[facility]ITALNCLIA [id number] [place] [address] [place] WBC (Bld) [#/Vol] 4.82 10*3/uL Normal 3.70-11.00 [facility] Comment on above: Order Comment: Speci men Type: BLOOD SPECIMENOrdering Facility: [facility] Address: [address] [place] [address] Performed By: #### 5 8410-2 ####[facility] MILLTOWNCLIA [id number] [place] [address] [place] [facility] [place] Comprehensive metabolic 2000 panelon 02-02-2024 Albumin [Mass/Vol] 4.0 g/dL Normal 3.9-4.9 [facility] Comment on above: Order Comment: Speci men Type: BLOOD SPECIMENOrdering Facility: [facility] Address: [address] [place] [address] Performed By: #### 1 9123-9, 52150-6 ####[facility] MILLTOWNCLIA [id number] [place] [address] [place] ALP [Catalytic activity/Vol] 55 U/L Normal 34-123 [facility] Comment on above: Order Comment: Speci men Type: BLOOD SPECIMENOrdering Facility: [facility] Address: [address] [place], [place] [address] Performed By: #### 1 9123-9, 48783-9 ####[facility] MILLTOWNCLIA [id number] [place] [address] [place] ALT [Catalytic activity/Vol] 12 U/L Normal 7-38 [facility] Comment on above: Order Comment: Speci men Type: BLOOD SPECIMENOrdering Facility: [facility] Address: [address] [place] [address] Performed By: #### 1 9123-9, 24430-6 ####[facility] MILLTOWNCLIA [id number] [place] [address] [place] Anion gap [Moles/Vol] 12 mmol/L Normal 8-15 [facility] Comment on above: Order Comment: Speci men Type: BLOOD SPECIMENOrdering Facility: [facility] Address: [address] [place] [address] Performed By: #### 1 9123-9, 45111-8 ####[facility] MILLTOWNCLIA [id number] [place] [address] [place] AST [Catalytic activity/Vol] 20 U/L Normal 13-35 [facility] Comment on above: Order Comment: Speci men Type: BLOOD SPECIMENOrdering Facility: [facility] Address: [address] [place] [address] Performed By: #### 1 9123-9, 05405-0 ####[facility] MILLTOWNCLIA [id number] [place] [address] [place] Bilirubin [Mass/Vol] 0.4 mg/dL Normal 0.2-1.3 [facility] Comment on above: Order Comment: Speci men Type: BLOOD SPECIMENOrdering Facility: [facility] Address: [address] [place] [address] Performed By: #### 1 9123-9, 09182-4 ####[facility] ROOMWNCLIA [id number] [place] [address] [place] Calcium [Mass/Vol] 9.2 mg/dL Normal 8.5-10.2 [facility] Comment on above: Order Comment: Speci men Type: BLOOD SPECIMENOrdering Facility: [facility] Address: [address] [place] [address] Performed By: #### 1 9123-9, 63153-6 ####[facility] ROOMWNCLIA [id number] [place] [address] [place] Chloride [Moles/Vol] 104 mmol/L Normal 98-107 [facility] Comment on above: Order Comment: Speci men Type: BLOOD SPECIMENOrdering Facility: [facility] Address: [address] [place] [address] Performed By: #### 1 9123-9, 94881-6 ####[facility] MILLTOWNCLIA [id number] [place] [address] [place] CO2 [Moles/Vol] 21 mmol/L Low 22-30 [facility] Comment on above: Order Comment: Kendall rojo Type: BLOOD SPECIMENOrdering Facility: [facility] Address: [address] [place] [address] Performed By: #### 1 9123-9, 27069-5 ####[facility] [id number] [place] [address] [place] Creatinine [Mass/Vol] 0.84 mg/dL Normal 0.58-0.96 [facility] Comment on above: Order Comment: Kendall rojo Type: BLOOD SPECIMENOrdering Facility: [facility] Address: [address] [place] [address] Performed By: #### 1 9123-9, ####[facility]ITALNCLIA [id number] [place] [address] [place] Creatinine and Glomerular filtration rate.predicted panel (S/P/Bld) 73 mL/min/1.73m??? Normal >=60 [facility] Comment on above: Order Comment: Kendall rojo Type: BLOOD SPECIMENOrdering Facility: [facility] Address: [address] [place] [address] Result Comment: Patricia mated Glomerular Filtration Rate [...] actual GFR. Performed By: #### 1 9123-9, ####[facility]ITALNCLIA [id number] [place] [address] [place] Glucose [Mass/Vol] 121 mg/dL High 74-99 [facility] Comment on above: Order Comment: Kendall orjo Type: BLOOD SPECIMENOrdering Facility: [facility] Address: [address] [place], [place] [address] Result Comment: The [place] [employer] (ADA) provides guidance for cutoff [...] Standards of Medical Care in Diabetes 2016, [place] [employer]. Diabetes Care. 2016.39(Suppl 1). Performed By: #### 1 9123-9, 42752-6 ####[facility] [id number] [place] [address] [place] Potassium [Moles/Vol] 3.7 mmol/L Normal 3.7-5.1 [facility] Comment on above: Order Comment: Speci men Type: BLOOD SPECIMENOrdering Facility: [facility] Address: [address] [place] [address] Performed By: #### 1 9123-9, 46769-4 ####[facility] [id number] [place] [address] [place] Protein [Mass/Vol] 6.2 g/dL Low 6.3-8.0 [facility] Comment on above: Order Comment: Speci men Type: BLOOD SPECIMENOrdering Facility: [facility] Address: [address] [place], [place] [address] Performed By: #### 1 9123-9, 98344-3 ####[facility] [id number] [place] [address] [place] Sodium [Moles/Vol] 137 mmol/L Normal 136-144 [facility] Comment on above: Order Comment: Speci men Type: BLOOD SPECIMENOrdering Facility: [facility] Address: [address] [place] [address] Performed By: #### 1 9123-9, 33301-4 ####[facility] HOSPITALYENBLANCAGabriela [id number] [place] [address] [place] Urea nitrogen [Mass/Vol] 10 mg/dL Normal 7-21 [facility] Comment on above: Order Comment: Speci men Type: BLOOD SPECIMENOrdering Facility: [facility] Address: [address] [place] [address] Performed By: #### 1 9123-9, 74402-2 ####[facility] [id number] [place] [address] [place] Magnesium SerPl-mCncon 02-01 Magnesium [Mass/Vol] 1.6 mg/dL Low 1.7-2.3 [facility] Comment on above: Order Comment: Speci men Type: BLOOD SPECIMENOrdering Facility: [facility] Address: [address] [place] [address] Performed By: #### 1 9123-9, 85040-0 ####[facility] [id number] [place] [address] [place] T3Free SerPl-mCncon 02-02-20 24 Free T3 [Mass/Vol] 2.6 pg/mL Normal 2.3-4.1 [facility] Comment on above: Order Comment: Speci men Type: BLOOD SPECIMENOrdering Facility: [facility] Address: [address] [place] [address] Performed By: #### 3 051-0, 3024-7 ####[facility] LABCLIA [id number] [facility] [id number] [address] [place] T4 Free SerPl-mCncon 024 Free T4 [Mass/Vol] 1.3 ng/dL Normal 0.9-1.7 [facility] Comment on above: Order Comment: Speci men Type: BLOOD SPECIMENOrdering Facility: [facility] Address: [address] [place] [address] Performed By: #### 3 051-0, 3024-7 ####[facility] LABCLIA [id number] [place] [address] [place] TSH SerPl-aCncon 02-02-2024 TSH Qn 6.800 m[IU]/L High 0.270-4.200 [facility] Comment on above: Order Comment: Speci men Type: BLOOD SPECIMENOrdering Facility: [facility] Address: [address] [place] [address] Performed By: #### 3 016-3 ####[facility] LABCLIA [id number] [address] OF [place] CNOVon 01-30-2024 CNOV Office Visit (INTMWS ) AMINA TOBAR ([id number]) 1950 F NFR Date Time Provider Department [...] treated. A physician, nurse practitioner or physician title i instructional assistant may treat with a short course [...] young women if symptoms resolve. Coco Ocampo APRN.MULTIMEDIA ENGINEER 01/30/2024 11:48 AM Signed SUBJECTIVE Amina Tobar [...] Generalized - 06/13/2019 Abdominal Pain, Rlq - 06/13/ (more content not included)... Normal [facility] UA DIP, URINE (POC)on 2023 BILIRUBIN UA (POCT) Negative Negative [facility] CLARITY UA (POCT) Clear [facility] COLOR UA (POCT) Yellow [facility] GLUCOSE UA (POCT) Negative Negative mg/dL [facility] Hemoglobin Ql (U) Negative Negative [facility] Interpretation and review of laboratory results Abnormal [facility] KETONE UA (POCT) Negative Negative mg/dL [facility] LEUKOCYTES UA (POCT) Trace Abnormal Negative [facility] NITRITE UA (POCT) Negative Negative [facility] PH UA (POCT) 7.0 4.5 - 8.0 [facility] Protein Ql (U) Negative Negative mg/dL [facility] SPECIFIC GRAVITY UA (POCT) 1.020 1.005 - 1.030 [facility] UROBILINOGEN UA (POCT) 0.2 Hiral l E.U./dL [facility] Location:[facility], [address] [place] [address], [place], [place], [id number] [place] [address] POINT OF CARE [facility] CNOVon 12-04-2023 CNOV Office Visit (INTMWS ) AMINA TOBAR ([id number]) 1950 F NFR Date Time Provider Department 12/04/23 10:40 AM FIORELLA HALL INTMWS During your visit today, we recorded the following information about you: Fiorella Hall MD 01/16/2024 11:09 PM Signed This note was created using [employer]. Subjective Amina Tobar is a 72 year [...] Metamucil in (more content not included)... Normal [facility] Telephone (INTMWS) AMINA TOBAR ([id number]) 1950 F NFR Date Time Provider Department 12/04/23 FIORELLA HALL INTMWS During your visit today, we recorded the following information about you: Ashley Mack, JH 12/04/2023 10:02 AM Signed Patient calls and [...] adverse effect Date Reviewed: 08/07/2023 Reviewed by: Kunal Rea MA - Fully Assessed Reason for Visit: [...] Encounter Status:Closed by ASHLEY MACK on 12/04/23 Normal [facility] COLONOSCOPY SCREENINGon 11-[address] [facility] [address] CA SCORE (CARDIAC) WO IVC ONon 07-27-2022 CT CA SCORE (CARDIAC) WO IVCON * * *Final Report* * * DATE OF EXAM: Jul 27 2022 4:14PM [facility] 2050 - CT CA SCORE (CARDIAC) WO IVCON / PROCEDURE REASON: SHORTNESS OF BREATH * * * * Physician Interpretation * * * * Examination: CT Coronary Calcium Score acquired at [facility] Comparison: CT abdomen 05/16/2019 HISTORY: 71 year old Female with concern for coronary artery disease. There is request to assess coronary calcification TECHNIQUE: SCANNER: Multi-detector CT technology was employed (tsumobi Revolution HD multi-slice scanner). PROTOCOL: Sequential imaging [...] relative to reference population): 48 percentile* [* [email or web address] calcium/input.[email or web address]] IMPRESSION: MILD CORONARY CALCIFICATION LAD AND RCA - Total Coronary Calcium Score (CAC) = 15 AU Fuel Cell Test Engineer: NEMESIO Transcribe Date/Time: Jul 27 2022 4:47P Dictated by : DENNIS MCNALLY MD This examination was interpreted and the report reviewed and electronically signed by: DENNIS MCNALLY MD on Jul 27 2022 5:14PM EST [id number] [facility] Absolute lymphocyte counton 03-07-2022 Lymphocytes Auto (Unsp spec) [#/Vol] 2.81 10*3/uL 0.83-4.51 [facility] Work Phone: Basophil percentageon 2021 Basophils/100 WBC (Bld) 0.3 % 0-1 [facility] Work Phone: [phone] Bilirubin [Mass/Vol] 0.40 mg/dL 0.20-1.00 [facility] Work Phone: [phone] Comment on above: For patients on eltr ombopag therapy, use of Dimension [place] TBIL is not recommended. Chloride [Moles/Vol] 101 mmol/L 98-107 [facility] Work Phone: Eosinophils/100 WBC (Bld) 0.5 % 0-5 [facility] Work Phone: [phone] Glucose [Mass/Vol] 128 mg/dL 74-106 [facility] Work Phone: [phone] Comment on above: Fasting Glucose resu lt greater than or equal to 126 mg/dL suggests DIABETES MELLITUS per A.D.A. criteria. Neutrophils (Bld) [#/Vol] 0.6 10*3/uL 2.0-7.7 [facility] Work Phone: [phone] Neutrophils/100 WBC (Bld) 14.5 % 47-70 [facility] Work Phone: [phone] Potassium [Moles/Vol] 4.5 mmol/L 3.5-5.1 [facility] Work Phone: [phone] Comment on above: Moderate Hemolysis, Result may be falsely increased. Protein [Mass/Vol] 6.7 g/dL 6.4-8.2 [facility] Work Phone: Sodium [Moles/Vol] 135 mmol/L 136-145 [facility] Work Phone: [phone] WBC (Bld) [#/Vol] 3.9 10*3/uL 4.4-11.0 [facility] Work Phone: [phone] Blood erythrocytes count (nu mber/volume)on 03-07-2022 RBC (Bld) [#/Vol] 4.51 10*6/uL 4.2-5.4 [facility] Work Phone: Blood hemoglobin measurement (mass/volume)on 03-07-2022 Hemoglobin (Bld) [Mass/Vol] 14.7 g/dL 12.0-15.0 [facility] Work Phone: Blood lymphocytes/100 leukoc yteson 03-07-2022 Lymphocytes/100 WBC (Bld) 72.1 % 19-41 [facility] Work Phone: Blood manual differential co mment interpretation (narrative result)on 03-07-2022 Manual differential comment Owen (Bld) [Interp] SCANNED [facility] Work Phone: Blood monocytes/100 leukocyt eson 03-07-2022 Monocytes/100 WBC (Bld) 12.3 % 0-10 [facility] Work Phone: Blood platelet mean volumeon 03-07-2022 Platelet mean volume (Bld) [Entitic vol] 11.2 fL 6.2-12.0 [facility] Work Phone: [phone] Determination of erythrocyte mean corpuscular volume (MCV)on 03-07-2022 MCV (RBC) [Entitic vol] 93.6 fL 81-99 [facility] Work Phone: [phone] Hematocrit Auto (Bld) [Volum e fraction]on 03-07-2022 Hematocrit (Bld) [Volume fraction] 42.2 % 37-47 [facility] Work Phone: [phone] Laboratory - Chemistry and C hemistry - challengeon 03-07-2022 ALP [Catalytic activity/Vol] 78 U/L 45-117 [facility] Work Phone: [phone] ALT [Catalytic activity/Vol] 38 U/L 13-56 [facility] Work Phone: [phone] CO2 [Moles/Vol] 28.0 mmol/L 21.0-32.0 [facility] Work Phone: Globulin (S) [Mass/Vol] 3.5 g/dL 2.2-4.2 [facility] Work Phone: Lipase [Catalytic activity/Vol] 156 U/L 73-393 [facility] Work Phone: Urea nitrogen/Creatinine [Mass ratio] 15.8 mg/mg 10-20 [facility] Work Phone: Laboratory - Hematology and Cell countson 03-07-2022 Erythrocyte distribution width (RBC) [Entitic vol] 42.9 fL 35.1-43.9 [facility] Work Phone: Erythrocyte distribution width (RBC) [Ratio] 12.4 % 11.6-14.6 [facility] Work Phone: Immature granulocytes/100 WBC (Bld) 0.300 % 0.0-0.9 [facility] Work Phone: Comment on above: IG% - Immature Granu locytes (promyelocytes, myelocytes and metamyelocytes) > 1% indicates that a LEFT SHIFT is Present. MCH (RBC) [Entitic mass] 32.6 pg 27.0-32.0 [facility] Work Phone: Nucleated RBC/100 WBC (Bld) [Ratio] 0 % 0-5 [facility] Work Phone: MCHC Auto (RBC) [Mass/Vol]on 03-07-2022 MCHC (RBC) [Mass/Vol] 34.8 g/dL 32-36 [facility] Work Phone: No Panel Informationon 03-07 Estimated Creatinine Clearance Calc 49.05 ml/min [facility] Work Phone: Estimated GFR (MDRD) Amer 88 mL/min >60 [facility] Work Phone: Comment on above: GFR Calc Estimated GFR (MDRD) Non-Af Amer 72 mL/min >60 [facility] Work Phone: Comment on above: Non- GFR Calc Platelets bldon 03-07-2022 Platelets (Bld) [#/Vol] 226 10*3/uL 150-450 [facility] Work Phone: Serum or plasma albumin irving urement (mass/volume)on 03-07-2022 Albumin [Mass/Vol] 3.2 g/dL 3.2-5.0 [facility] Work Phone: Serum or plasma albumin/glob ulin mass ratioon 03-07-2022 Albumin/Globulin [Mass ratio] 0.9 {ratio} 0.9-2.4 [facility] Work Phone: Serum or plasma calcium irving urement (mass/volume)on 03-07-2022 Calcium [Mass/Vol] 8.6 mg/dL 8.5-10.1 [facility] Work Phone: Serum or plasma creatinine m easurement (mass/volume)on 03-07-2022 Creatinine [Mass/Vol] 0.82 mg/dL 0.55-1.02 [facility] Work Phone: Comment on above: The validity of the calculated GFR & GFRAA in patients over 70 years has not been determined. Clinical correlation is essential. Serum or plasma urea nitroge n measurement (mass/volume)on 03-07-2022 Urea nitrogen [Mass/Vol] 13 mg/dL 7-18 [facility] Work Phone: Thin prep Papanicolaou smear with manual screeningon 03-07-2022 Thin prep Papanicolaou smear with manual screening 46 U/L 15-37 [facility] Work Phone: Comment on above: Moderate Hemolysis, Result may be falsely increased. Thin prep Papanicolaou smear with manual screening 6 5-15 [facility] Work Phone: CNNURSEon 08-07-2020 CNNURSE Nurse Visit (COVAMD) AMY TOBAREDWIN Martinez ([id number]) 1950 F NFR Date Time Provider Department 08/07/20 FINA WEBB ([facility]) EZEQUIEL During your visit today, we recorded the [...] by: Heather Hercules LPN - Fully Assessed Order(s):[employer] SARS-COV-2 VACCINE 2D DOSE APPT [[id number]] Order #: [id number] Prescriptions as of 08/07/2020 Sig: BUPROPION XL [...] [R10.31] 06/13/2019 Psychophysiological insomnia [F51.04] 06/13/2019 [facility] Nurse [facility] (COVAMD) AMINA TOBAR ([id number]) 1950 F NFR Date Time Provider Department 07/17/20 9:45 AM COVID VACCINE [place] COVAMD During your visit today, we recorded [...] by: Heather Hercules LPN - Fully Assessed Order(s):[facility] COVID-19 VACCINE [[id number]] Order #: [id number] [employer] SARS-COV-2 VACCINE 2D DOSE APPT [[id number]] Order #: [id number] FUTURE Prescriptions as of 07/17/2020 Sig: BUPROPION [...] 06/13/2019 Psychophysiological insomnia [F51.04] 06/13/2019 Encounter Status:Open [facility] Vital Signs Date Time Vital Sign Value Performing Clinician Facility 10-23-2024 09:54-0400 Body height 154.[address] Fiorella Hall MD Work Phone: 7(598)009-414632 [place] [address] 10-23-2024 09:54-0400 Body mass index (BMI) [Ratio] 29 kg/m2 Dr. Fiorella Hall MD Work Phone: 1(541)463-146732 [place] [address] 10-23-2024 09:54-0400 Body weight 69.[address] Fiorella Hall MD Work Phone: 1(402)528-210532 [place] [address] 10-23-2024 09:54-0400 Diastolic blood pressure 74 mm[Hg] Dr. Fiorella Hall MD Work Phone: 0(208)698-705932 [place] [address] 10-23-2024 09:54-0400 Heart rate 74 /min Dr. Fiorella Hall MD Work Phone: 2(144)932-200032 [place] [address] 10-23-2024 09:54-0400 Respiratory rate 16 /min Dr. Fiorella Hall MD Work Phone: 2(204)155-838432 [place] [address] 10-23-2024 09:54-0400 Systolic blood pressure 117 mm[Hg] Dr. Fiorella Hall MD Work Phone: 6(325)482-476932 [place] [address] 10-18-2024 17:01-0400 Body temperature 98 [degF] Dr. Fiorella Hall MD Work Phone: 0(018)879-945932 [place] [address] 10-18-2024 17:01-0400 Diastolic blood pressure 60 mm[Hg] Dr. Fiorella Hall MD Work Phone: 4(547)092-947332 [place] [address] 10-18-2024 17:01-0400 Heart rate 64 /min Dr. Fiorella Hall MD Work Phone: 4(138)397-292932 [place] [address] 10-18-2024 17:01-0400 Respiratory rate 16 /min Dr. Fiorella Hall MD Work Phone: 3(602)230-591832 [place] [address] 10-18-2024 17:01-0400 SaO2% (BldA) [Mass fraction] 99 % Dr. Fiorella Hall MD Work Phone: 7(430)030-893832 [place] [address] 10-18-2024 17:01-0400 Systolic blood pressure 142 mm[Hg] Dr. Fiorella Hall MD Work Phone: 5(770)472-260432 [place] [address] 10-18-2024 13:26-0400 Body height 154.[address] Fiorella Hall MD Work Phone: 3(255)847-311732 [place] [address] 10-18-2024 13:26-0400 Body mass index (BMI) [Ratio] 29.8 kg/m2 Dr. Fiorella Hall MD Work Phone: 2(372)112-129932 [place] [address] 10-18-2024 13:26-0400 Body weight 71.[address] Fiorella Hall MD Work Phone: 3(191)122-274232 [place] [address] 10-08-2024 08:00-0400 Body temperature 97.5 [degF] Dr. Fiorella Hall MD Work Phone: 7(531)146-041132 [place] [address] 10-08-2024 08:00-0400 Diastolic blood pressure 76 mm[Hg] Dr. Fiorella Hall MD Work Phone: 1(905)113-961732 [place] [address] 10-08-2024 08:00-0400 Heart rate 80 /min Dr. Fiorella Hall MD Work Phone: 0(980)830-350532 [place] [address] 10-08-2024 08:00-0400 Respiratory rate 14 /min Dr. Fiorella Hall MD Work Phone: 5(649)166-278232 [place] [address] 10-08-2024 08:00-0400 SaO2% (BldA) [Mass fraction] 98 % Dr. Fiorella Hall MD Work Phone: [facility] 10-08-2024 08:00-0400 Systolic blood pressure 124 mm[Hg] Dr. Fiorella Hall MD Work Phone: [facility] 08-09-2024 08:34-0400 Body mass index (BMI) [Ratio] 29.67 kg/m2 Fiorella Hall MD Work Phone: [facility] 08-09-2024 08:34-0400 Body weight 68.9 kg Fiorella Hall MD Work Phone: [facility] 08-09-2024 08:34-0400 Diastolic blood pressure 66 mm[Hg] Fiorella Hall MD Work Phone: [facility] 08-09-2024 08:34-0400 Heart rate 61 /min Fiorella Hall MD Work Phone: [facility] 08-09-2024 08:34-0400 Respiratory rate 16 /min Fiorella Hall MD Work Phone: [facility] 08-09-2024 08:34-0400 SaO2% (BldA) [Mass fraction] 98 % Fiorella Hall MD Work Phone: [facility] 08-09-2024 08:34-0400 Systolic blood pressure 128 mm[Hg] Fiorella Hall MD Work Phone: [facility] 08-05-2024 08:53-0400 Body height 154.[address] Fiorella Hall MD Work Phone: [facility] 08-05-2024 08:53-0400 Body mass index (BMI) [Ratio] 29 kg/m2 Dr. Fiorelal Hall MD Work Phone: [facility] 08-05-2024 08:53-0400 Body weight 69.[address] Fiorella Hall MD Work Phone: [facility] 07-25-2024 07:39-0400 Body mass index (BMI) [Ratio] 28.1 kg/m2 Dr. Fiorella Hall MD Work Phone: [facility] 07-25-2024 07:39-0400 Body weight 67.[address] Fiorella Hall MD Work Phone: [facility] 07-25-2024 07:39-0400 Diastolic blood pressure 73 mm[Hg] Dr. Fiorella Hall MD Work Phone: 3(153)996-455023 [place] [address] 07-25-2024 07:39-0400 Heart rate 69 /min Dr. Fiorella Hall MD Work Phone: 7(222)381-292123 [place] [address] 07-25-2024 07:39-0400 Respiratory rate 18 /min Dr. Fiorella Hall MD Work Phone: 0(975)960-407032 [place] [address] 07-25-2024 07:39-0400 SaO2% (BldA) [Mass fraction] 100 % Dr. Fiorella Hall MD Work Phone: 1(359)502-256623 [place] [address] 07-25-2024 07:39-0400 Systolic blood pressure 115 mm[Hg] Dr. Fiorella Hall MD Work Phone: [facility] 06-07-2024 08:26-0500 Body weight 68.[address] Fiorella Hall MD Work Phone: [facility] 04-03-2024 09:00-0500 Body temperature 97.9 [degF] Treatment [facility]str Work Phone: [facility] 04-03-2024 09:00-0500 Diastolic blood pressure 78 mm[Hg] Treatment [facility] Work Phone: [facility] 04-03-2024 09:00-0500 Heart rate 84 /min Treatment [facility] Work Phone: [facility] 04-03-2024 09:00-0500 Systolic blood pressure 132 mm[Hg] Treatment [facility] Work Phone: [facility] 04-02-2024 10:40-0500 Diastolic blood pressure 84 mm[Hg] Annemarie Westbrook DO Work Phone: [facility] 04-02-2024 10:40-0500 Heart rate 65 /min Annemarie Westbrook DO Work Phone: [facility] 04-02-2024 10:40-0500 SaO2% (BldA) [Mass fraction] 99 % Annemarie Westbrook DO Work Phone: [facility] 04-02-2024 10:40-0500 Systolic blood pressure 154 mm[Hg] Annemarie Westbrook DO Work Phone: [facility] 03-15-2024 14:02-0400 Diastolic blood pressure 76 mm[Hg] Coco Terrence ENERGY CONSERVATION DIRECTOR.MULTIMEDIA ENGINEER Work Phone: [facility] 03-15-2024 14:02-0400 Systolic blood pressure 140 mm[Hg] Coco Terrence ENERGY CONSERVATION DIRECTOR.MULTIMEDIA ENGINEER Work Phone: [facility] 03-15-2024 14:00-0400 Body mass index (BMI) [Ratio] 30.1 kg/m2 Coco Terrence ENERGY CONSERVATION DIRECTOR.MULTIMEDIA ENGINEER Work Phone: [facility] 03-15-2024 14:00-0400 Body weight 69.9 kg Coco Terrence ENERGY CONSERVATION DIRECTOR.MULTIMEDIA ENGINEER Work Phone: [facility] 03-15-2024 14:00-0400 Heart rate 68 /min Coco Terrence ENERGY CONSERVATION DIRECTOR.MULTIMEDIA ENGINEER Work Phone: [facility] 03-15-2024 14:00-0400 SaO2% (BldA) [Mass fraction] 99 % Coco Terrence ENERGY CONSERVATION DIRECTOR.MULTIMEDIA ENGINEER Work Phone: [facility] 02-07-2024 07:49-0400 Body height 152.4 cm Fiorella Hall MD Work Phone: [facility] 02-07-2024 07:49-0400 Body mass index (BMI) [Ratio] 29.67 kg/m2 Fiorella Hall MD Work Phone: [facility] 02-07-2024 07:49-0400 Body weight 68.9 kg Fiorella Hall MD Work Phone: [facility] 02-07-2024 07:49-0400 Diastolic blood pressure 72 mm[Hg] Fiorella Hall MD Work Phone: [facility] 02-07-2024 07:49-0400 Heart rate 78 /min Fiorella Hall MD Work Phone: [facility] 02-07-2024 07:49-0400 Respiratory rate 16 /min Fiorella Hall MD Work Phone: [facility] 02-07-2024 07:49-0400 Systolic blood pressure 124 mm[Hg] Fiorella Hall MD Work Phone: [facility] 01-30-2024 11:24-0400 Diastolic blood pressure 72 mm[Hg] Coco Terrence ENERGY CONSERVATION DIRECTOR.MULTIMEDIA ENGINEER Work Phone: [facility] 01-30-2024 11:24-0400 Systolic blood pressure 140 mm[Hg] Coco Terrence ENERGY CONSERVATION DIRECTOR.MULTIMEDIA ENGINEER Work Phone: [facility] 01-30-2024 11:22-0400 Body mass index (BMI) [Ratio] 29.49 kg/m2 Coco Terrence ENERGY CONSERVATION DIRECTOR.MULTIMEDIA ENGINEER Work Phone: [facility] 01-30-2024 11:22-0400 Body temperature 98.2 [degF] Coco Terrence ENERGY CONSERVATION DIRECTOR.MULTIMEDIA ENGINEER Work Phone: [facility] 01-30-2024 11:22-0400 Body weight 70.8 kg Coco Terrence ENERGY CONSERVATION DIRECTOR.MULTIMEDIA ENGINEER Work Phone: [facility] 01-30-2024 11:22-0400 Heart rate 79 /min Coco Terrence ENERGY CONSERVATION DIRECTOR.MULTIMEDIA ENGINEER Work Phone: [facility] 01-30-2024 11:22-0400 SaO2% (BldA) [Mass fraction] 98 % Coco Terrence ENERGY CONSERVATION DIRECTOR.MULTIMEDIA ENGINEER Work Phone: [facility] 08-07-2023 08:36-0400 Body height 154.9 cm Fiorella Hall MD Work Phone: [facility] 08-07-2023 08:36-0400 Body mass index (BMI) [Ratio] 27.93 kg/m2 Fiorella Hall MD Work Phone: [facility] 08-07-2023 08:36-0400 Body weight 67.04 kg Fiorella Hall MD Work Phone: [facility] 08-07-2023 08:36-0400 Diastolic blood pressure 76 mm[Hg] Fiorella Hall MD Work Phone: [facility] 08-07-2023 08:36-0400 Heart rate 80 /min Fiorella Hall MD Work Phone: [facility] 08-07-2023 08:36-0400 Systolic blood pressure 124 mm[Hg] Fiorella Hall MD Work Phone: [facility] 03-30-2023 09:58-0500 Diastolic blood pressure 85 mm[Hg] Treatment [facility] Work Phone: [facility] 03-30-2023 09:58-0500 Heart rate 94 /min Treatment [facility] Work Phone: [facility] 03-30-2023 09:58-0500 Systolic blood pressure 144 mm[Hg] Treatment [facility]str Work Phone: [facility] 11-28-2022 13:41-0400 Diastolic blood pressure 81 mm[Hg] Sarah Ryan MD Work Phone: [facility] 11-28-2022 13:41-0400 Heart rate 66 /min Sarah Ryan MD Work Phone: [facility] 11-28-2022 13:41-0400 Respiratory rate 16 /min Sarah Ryan MD Work Phone: [facility] 11-28-2022 13:41-0400 SaO2% (BldA) [Mass fraction] 97 % Sarah Ryan MD Work Phone: [facility] 11-28-2022 13:41-0400 Systolic blood pressure 153 mm[Hg] Sarah Ryan MD Work Phone: [facility] 11-28-2022 12:27-0400 Body temperature 97.3 [degF] Sarah Ryan MD Work Phone: [facility] 11-28-2022 12:27-0400 Body weight 72.6 kg Sarah Ryan MD Work Phone: [facility] 11-14-2022 08:23-0400 Body height 157.[address] Fiorella Hall Work Phone: [facility] 11-14-2022 08:23-0400 Body mass index (BMI) [Ratio] 29.9 kg/m2 Dr. Fiorella Hall Work Phone: 2(685)762-029823 [place] [address] 11-14-2022 08:23-0400 Body temperature 98 [degF] Dr. Fiorella Hall Work Phone: [facility] 11-14-2022 08:23-0400 Body weight 74.[address] Fiorella Hall Work Phone: 7(446)704-304023 [place] [address] 11-14-2022 08:23-0400 Diastolic blood pressure 66 mm[Hg] Dr. Fiorella Hall Work Phone: 9(700)456-709823 [place] [address] 11-14-2022 08:23-0400 Heart rate 80 /min Dr. Fiorella Hall Work Phone: 5(544)591-536023 [place] [address] 11-14-2022 08:23-0400 Respiratory rate 16 /min Dr. Fiorella Hall Work Phone: 1(894)687-247623 [place] [address] 11-14-2022 08:23-0400 SaO2% (BldA) [Mass fraction] 98 % Dr. Fiorella Hall Work Phone: [facility] 11-14-2022 08:23-0400 Systolic blood pressure 130 mm[Hg] Dr. Fiorella Hall Work Phone: [facility] 11-08-2022 08:17-0400 Body height 157.5 cm Sarah Ryan MD Work Phone: [facility] 11-08-2022 08:17-0400 Body temperature 97.7 [degF] Sarah Ryan MD Work Phone: [facility] 11-08-2022 08:17-0400 Body weight 72.58 kg Sarah Ryan MD Work Phone: [facility] 11-08-2022 08:17-0400 Diastolic blood pressure 68 mm[Hg] Sarah Ryan MD Work Phone: [facility] 11-08-2022 08:17-0400 Heart rate 94 /min Sarah Ryan MD Work Phone: [facility] 11-08-2022 08:17-0400 SaO2% (BldA) [Mass fraction] 98 % Sarah Ryan MD Work Phone: [facility] 11-08-2022 08:17-0400 Systolic blood pressure 108 mm[Hg] Sarah Ryan MD Work Phone: [facility] 11-07-2022 12:39-0400 Body weight 73.03 kg Coco Terrence ENERGY CONSERVATION DIRECTOR.MULTIMEDIA ENGINEER Work Phone: [facility] 11-07-2022 12:39-0400 Diastolic blood pressure 82 mm[Hg] Coco Terrence ENERGY CONSERVATION DIRECTOR.MULTIMEDIA ENGINEER Work Phone: [facility] 11-07-2022 12:39-0400 Heart rate 82 /min Coco Terrence ENERGY CONSERVATION DIRECTOR.MULTIMEDIA ENGINEER Work Phone: [facility] 11-07-2022 12:39-0400 SaO2% (BldA) [Mass fraction] 98 % Coco Terrence ENERGY CONSERVATION DIRECTOR.MULTIMEDIA ENGINEER Work Phone: [facility] 11-07-2022 12:39-0400 Systolic blood pressure 134 mm[Hg] Coco Terrence ENERGY CONSERVATION DIRECTOR.MULTIMEDIA ENGINEER Work Phone: [facility] 08-19-2022 11:27-0400 Diastolic blood pressure 82 mm[Hg] Annemarie Westbrook DO Work Phone: [facility] 08-19-2022 11:27-0400 Heart rate 69 /min Annemarie Westbrook DO Work Phone: [facility] 04-07-2023 11:27-0400 SaO2% (BldA) [Mass fraction] 100 % Annemarie Westbrook DO Work Phone: [facility] 08-19-2022 11:27-0400 Systolic blood pressure 120 mm[Hg] Annemarie Westbrook DO Work Phone: [facility] 07-20-2022 09:29-0500 Diastolic blood pressure 78 mm[Hg] Fiorella Hall MD Work Phone: [facility] 07-20-2022 09:29-0500 Systolic blood pressure 132 mm[Hg] Fiorella Hall MD Work Phone: [facility] 07-20-2022 08:25-0500 Body temperature 97.59 [degF] Fiorella Hall MD Work Phone: [facility] 07-20-2022 08:25-0500 Body weight 71.22 kg Fiorella Hall MD Work Phone: [facility] 07-20-2022 08:25-0500 Heart rate 89 /min Fiorella Hall MD Work Phone: [facility] 07-20-2022 08:25-0500 Respiratory rate 18 /min Fiorella Hall MD Work Phone: [facility] 07-20-2022 08:25-0500 SaO2% (BldA) [Mass fraction] 98 % Fiorella Hall MD Work Phone: [facility] 04-13-2022 13:40-0500 Body height 157.[address] Fiorella Hall Work Phone: [facility] Work Phone: 04-13-2022 13:40-0500 Body mass index (BMI) [Ratio] 28.9 kg/m2 Dr. Fiorella Hall Work Phone: [facility] Work Phone: 04-13-2022 13:40-0500 Body weight 71.[address] Fiorella Hall Work Phone: [facility] Work Phone: 04-13-2022 13:40-0500 Diastolic blood pressure 69 mm[Hg] Dr. iForella Hall Work Phone: [facility] Work Phone: 04-13-2022 13:40-0500 Heart rate 72 /min Dr. Fiorella Hall Work Phone: [facility] Work Phone: 04-13-2022 13:40-0500 Respiratory rate 16 /min Dr. Fiorella Hall Work Phone: [facility] Work Phone: 04-13-2022 13:40-0500 Systolic blood pressure 142 mm[Hg] Dr. Fiorella Hall Work Phone: [facility] Work Phone: 03-29-2022 08:31-0500 Body height 153.7 cm Annemarie Westbrook DO Work Phone: [facility] 03-29-2022 08:31-0500 Body weight 70.76 kg Annemarie Westbrook DO Work Phone: [facility] 03-29-2022 08:31-0500 Diastolic blood pressure 91 mm[Hg] Annemarie Westbrook DO Work Phone: [facility] 03-29-2022 08:31-0500 Heart rate 90 /min Annemarie Westbrook DO Work Phone: [facility] 03-29-2022 08:31-0500 SaO2% (BldA) [Mass fraction] 99 % Annemarie Westbrook DO Work Phone: [facility] 03-29-2022 08:31-0500 Systolic blood pressure 126 mm[Hg] Annemarie Westbrook DO Work Phone: [facility] 03-07-2022 03:32-0400 Body height 157.[address] Fiorella Hall Work Phone: [facility] Work Phone: 03-07-2022 03:32-0400 Body mass index (BMI) [Ratio] 29.2 kg/m2 Dr. Fiorella Hall Work Phone: [facility] Work Phone: 03-07-2022 03:32-0400 Body temperature 97.6 [degF] Dr. Fiorella Hall Work Phone: [facility] Work Phone: 03-07-2022 03:32-0400 Body weight 72.[address] Fiorella Hall Work Phone: [facility] Work Phone: 03-07-2022 03:32-0400 Diastolic blood pressure 80 mm[Hg] Dr. Fiorella Hall Work Phone: [facility] Work Phone: 03-07-2022 03:32-0400 Heart rate 65 /min Dr. Fiorella Hall Work Phone: [facility] Work Phone: 03-07-2022 03:32-0400 Respiratory rate 18 /min Dr. Fiorella Hall Work Phone: [facility] Work Phone: 03-07-2022 03:32-0400 SaO2% (BldA) [Mass fraction] 98 % Dr. Fiorella Hall Work Phone: [facility] Work Phone: 03-07-2022 03:32-0400 Systolic blood pressure 148 mm[Hg] Dr. Fiorella Hall Work Phone: [facility] Work Phone: 03-06-2022 20:30-0400 Heart rate 78 /min Dr. Fiorella Hall Work Phone: [facility] Work Phone: 03-06-2022 20:30-0400 Respiratory rate 15 /min Dr. Fiorella Hall Work Phone: [facility] Work Phone: 03-06-2022 20:30-0400 SaO2% (BldA) [Mass fraction] 99 % Dr. Fiorella Hall Work Phone: [facility] Work Phone: 03-06-2022 17:30-0400 Body temperature 98.2 [degF] Dr. Fiorella Hall Work Phone: [facility] Work Phone: 03-06-2022 17:30-0400 Diastolic blood pressure 69 mm[Hg] Dr. Fiorella Hall Work Phone: [facility] Work Phone: 03-06-2022 17:30-0400 Systolic blood pressure 185 mm[Hg] Dr. Fiorella Hall Work Phone: [facility] Work Phone: 03-06-2022 17:19-0400 Body height 157.[address] Fiorella Hall Work Phone: [facility] Work Phone: 03-06-2022 17:19-0400 Body mass index (BMI) [Ratio] 27.4 kg/m2 Dr. Fiorella Hall Work Phone: [facility] Work Phone: 03-06-2022 17:19-0400 Body weight 68.[address] Fiorella Hall Work Phone: [facility] Work Phone: 01-14-2022 07:37-0400 Body height 153.7 cm Jeancarlos Vasques ENERGY CONSERVATION DIRECTOR.CLAY BURNER Work Phone: [facility] 01-14-2022 07:37-0400 Body weight 72.12 kg Jeancarlos Vasques ENERGY CONSERVATION DIRECTOR.CLAY BURNER Work Phone: [facility] 01-14-2022 07:37-0400 Diastolic blood pressure 70 mm[Hg] Jeancarlos Vasques ENERGY CONSERVATION DIRECTOR.CLAY BURNER Work Phone: [facility] 01-14-2022 07:37-0400 Heart rate 80 /min Jeancarlos Vasques ENERGY CONSERVATION DIRECTOR.CLAY BURNER Work Phone: [facility] 01-14-2022 07:37-0400 Respiratory rate 16 /min Jeancarlos Vasques ENERGY CONSERVATION DIRECTOR.CLAY BURNER Work Phone: [facility] 01-14-2022 07:37-0400 Systolic blood pressure 130 mm[Hg] Jeancarlos Vasques ENERGY CONSERVATION DIRECTOR.CLAY BURNER Work Phone: [facility] 12-08-2021 08:28-0400 Body height 154.[address] Fiorella Hall Work Phone: [facility] Work Phone: 12-08-2021 08:28-0400 Body mass index (BMI) [Ratio] 29 kg/m2 Dr. Fiorella aHll Work Phone: [facility] Work Phone: 12-08-2021 08:28-0400 Body temperature 96.2 [degF] Dr. Fiorella Hall Work Phone: [facility] Work Phone: 12-08-2021 08:28-0400 Body weight 69.[address] Fiorella Hall Work Phone: [facility] Work Phone: 12-08-2021 08:28-0400 Diastolic blood pressure 74 mm[Hg] Dr. Fiorella Hall Work Phone: [facility] Work Phone: 12-08-2021 08:28-0400 Heart rate 98 /min Dr. Fiorella Hall Work Phone: [facility] Work Phone: 12-08-2021 08:28-0400 Respiratory rate 16 /min Dr. Fiorella Hall Work Phone: [facility] Work Phone: 12-08-2021 08:28-0400 SaO2% (BldA) [Mass fraction] 98 % Dr. Fiorella Hall Work Phone: [facility] Work Phone: 12-08-2021 08:28-0400 Systolic blood pressure 158 mm[Hg] Dr. Fiorella Hall Work Phone: [facility] Work Phone: 08-24-2021 10:10-0400 Body height 154.9 cm Annemarie Westbrook DO Work Phone: [facility] 08-24-2021 10:10-0400 Body weight 68.95 kg Annemarie Westbrook DO Work Phone: [facility] 08-24-2021 10:10-0400 Diastolic blood pressure 76 mm[Hg] Annemarie Westbrook DO Work Phone: [facility] 08-24-2021 10:10-0400 Heart rate 71 /min Annemarie Westbrook DO Work Phone: [facility] 08-24-2021 10:10-0400 SaO2% (BldA) [Mass fraction] 97 % Annemarie Westbrook DO Work Phone: [facility] 08-24-2021 10:10-0400 Systolic blood pressure 128 mm[Hg] Annemarie Westbrook DO Work Phone: [facility] 08-13-2021 09:29-0400 Body height 154.9 cm Annemarie Westbrook DO Work Phone: [facility] 08-13-2021 09:29-0400 Body weight 68.95 kg Annemarie Westbrook DO Work Phone: [facility] 08-13-2021 09:29-0400 Diastolic blood pressure 78 mm[Hg] Annemarie Westbrook DO Work Phone: [facility] 08-13-2021 09:29-0400 Heart rate 78 /min Annemarie Westbrook DO Work Phone: [facility] 08-13-2021 09:29-0400 SaO2% (BldA) [Mass fraction] 100 % Annemarie Westbrook DO Work Phone: [facility] 08-13-2021 09:29-0400 Systolic blood pressure 118 mm[Hg] Annemarie Westbrook DO Work Phone: [facility] 07-20-2021 09:20-0500 Diastolic blood pressure 78 mm[Hg] Fiorella Hall MD Work Phone: [facility] 07-20-2021 09:20-0500 Systolic blood pressure 120 mm[Hg] Fiorella Hall MD Work Phone: [facility] 07-20-2021 08:48-0500 Body weight 68.49 kg Fiorella Hall MD Work Phone: [facility] 07-20-2021 08:48-0500 Heart rate 68 /min Fiorella Hall MD Work Phone: [facility] Encounters Encounter Date Encounter Type Care Provider Facility Start: 11-25-2024 ambulatory Fiorella Hall Facilit y:[facility] Start: 10-23-2024 End: 10-23-2024 Patient encounter procedure Jewel Blount [place] -[facility] Work Phone: Start: 10-23-2024 End: 10-23-[address] Fiorella Hall MD Work Phone: [facility] Work Phone: Start: 10-23-2024 End: 10-23-2024 ambulatory Fiorella Hall Facility:[facility] Start: 10-18-2024 End: 10-18-2024 Emergency department patient visit Dr. Fiorella Hall MD Work Phone: -Emergency Department Work Phone: Start: 10-10-2024 End: 10-10-[address] Howard Cavanaugh MD -[facility] Work Phone: Start: 10-10-2024 End: 10-10-[address] Fiorella Hall MD Work Phone: [facility] Work Phone: Start: 10-08-2024 End: 10-08-2024 Patient encounter procedure Narendra Thompson [facility] Work Phone: Start: 10-08-2024 End: 10-08-[address] Fiorella Hall MD Work Phone: [facility] Work Phone: Start: 10-05-2024 End: 10-05-[address] Fiorella Hall MD Work Phone: [facility] Work Phone: Start: 10-05-2024 End: 10-05-2024 Patient encounter procedure Arianna SCHMIDT [facility] Work Phone: Start: 10-05-2024 End: 10-05-2024 ambulatory Arianna Berman Facility:[facility] Start: 08-16-2024 End: 08-16-2024 Patient encounter procedure Arianna SCHMIDT -[facility] Work Phone: Start: 08-16-2024 End: 08-16-2024 ambulatory Arianna Berman Facility:[facility] Start: 08-09-2024 End: 08-09-2024 ambulatory FIORELLA HALL Facility:[facility] Start: 08-09-2024 End: 08-09-2024 Office outpatient visit 25 minutes Fiorella Hall MD Work Phone: [facility] [place] Comment on above: Acquired hypothyroid ism (Primary Dx); Hyperlipemia, mixed; IFG (impaired fasting glucose); Anxiety, generalized; Chronic pain of right ankle; Heel pain, chronic, right; Calcaneal spur of right foot; Essential (primary) hypertension; Vitamin D deficiency; Coronary artery disease involving kake coronary artery of kake heart without angina pectoris Start: 08-07-2024 End: 08-07-2024 ambulatory FIORELLA HALL Facility:[facility] Start: 08-05-2024 End: 08-05-2024 Patient encounter procedure Dinah Herrera ASSISTANT ASSOCIATE PROFESSOR-C -[facility] Work Phone: Start: 08-05-2024 End: 08-05-2024 ambulatory Dinah Herrera Facility:[facility] Start: 07-25-2024 End: 07-25-2024 Patient encounter procedure Dany Thornton ASSISTANT ASSOCIATE PROFESSOR-C -[facility] Work Phone: Start: 07-25-2024 End: 07-25-2024 ambulatory Dany Thornton Facility:[facility] Start: 07-23-2024 ambulatory Alexandrea Skip Facility:[facility] Start: 06-25-2024 ambulatory Alexandrea Skip Facility:[facility] Start: 06-17-2024 End: 07-12-[address] Alexandrea Valdivia MD -Cardiac Rehab Work Phone: Start: 06-17-2024 End: 07-12-2024 ambulatory Alexandrea Skip Facility:[facility] Start: 06-14-2024 End: 06-14-2024 ambulatory Alexandrea Skip Facility:[facility] Start: 06-14-2024 End: 06-14-[address] Alexandrea Valdivia MD -Cardiac Rehab Work Phone: Start: 05-28-2024 End: 05-28-2024 ambulatory [facility] Facility:[facility] Start: 05-28-2024 End: 05-28-2024 Subsequent hospital visit by physician Screen Mammo [facility] Comment on above: Screening mammogram for breast cancer [Z12.31] Start: 05-20-2024 End: 05-20-2024 Refill Fiorella Hall MD Work Phone: [facility] [place] Comment on above: Orders; Refill Reque st Start: 05-13-2024 End: 05-14-2024 ambulatory Alexandrea Skip Facility:[facility] Start: 04-19-2024 End: 04-19-2024 ambulatory Jewel Blount Facility:[facility] Start: 04-10-2024 End: 04-13-2024 ambulatory Alexandrea Skip Facility:[facility] Start: 04-04-2024 End: 04-04-2024 ambulatory Suma Reyna Facility:[facility] Start: 04-03-2024 End: 04-03-2024 ambulatory Treatment Rm 16 Mata [facility] Work Phone: Hematology/Oncology Comment on above: Spinal stenosis, lum bar region, without neurogenic claudication (Primary Dx); Sciatica, unspecified laterality Start: 04-02-2024 End: 04-02-2024 Telephone encounter Fiorella Hall MD Work Phone: Radiology Comment on above: Orders Start: 04-02-2024 End: 04-02-2024 Patient encounter procedure Annemarie Westbrook DO Work Phone: Vascular Surgery Comment on above: 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) Start: 04-02-2024 End: 04-02-2024 ambulatory ANNEMARIE WESTBROOK Facility:[facility] Start: 03-19-2024 End: 03-19-2024 ambulatory Fiorella Hall Facility:[facility] Start: 03-15-2024 End: 03-15-2024 ambulatory COCO OCAMPO Facility:[facility] Start: 03-15-2024 End: 03-15-2024 Patient encounter procedure Coco Ocampo ENERGY CONSERVATION DIRECTOR.MULTIMEDIA ENGINEER Work Phone: [facility] [place] Comment on above: Coronary artery dise ase involving kake coronary artery of kake heart without angina pectoris (Primary Dx); Status post angioplasty with stent; Essential hypertension; Hyperlipemia, mixed; Disorder of carotid artery (HCC) Start: 03-13-2024 End: 03-14-2024 ambulatory Alexandrea Skip Facility:[facility] Start: 03-08-2024 End: 03-08-2024 ambulatory Alexandrea Skip Facility:[facility] Start: 03-05-2024 ambulatory Alexandrea Skip Facility:[facility] Start: 03-02-2024 ambulatory Kasandra Hedrick Facility:[facility] Start: 03-02-2024 End: 03-05-2024 Evaluation and management of inpatient Kasandra Hedrick Facility:[facility] Start: 02-26-2024 End: 02-26-2024 Orders Only Coco Ocampo APRN.MULTIMEDIA ENGINEER Work Phone: [facility] [place] Start: 02-07-2024 End: 02-07-2024 Telephone encounter Fiorella Hall MD Work Phone: [facility] [place] Comment on above: Appointment Start: 02-07-2024 End: 02-07-2024 ambulatory FIORELLA HALL Facility:[facility] Start: 02-07-2024 End: 02-07-2024 Patient encounter procedure Fiorella Hall MD Work Phone: [facility] [place] Comment on above: Medicare annual well ness visit, subsequent (Primary Dx); Acquired hypothyroidism; Age-related osteoporosis without current pathological fracture; Hypomagnesemia; Anxiety, generalized; Vitamin D deficiency; IFG (impaired fasting glucose); Essential hypertension; Encounter for long-term current use of medication; Encounter for immunization Start: 02-02-2024 End: 02-02-2024 ambulatory FIORELLA HALL Facility:[facility] Start: 01-30-2024 End: 01-30-2024 ambulatory COCO OCAMPO Facility:[facility] Start: 01-30-2024 End: 01-30-2024 Patient encounter procedure Coco Ocampo APRN.MULTIMEDIA ENGINEER Work Phone: [facility] [place] Comment on above: Acute cystitis witho ut hematuria (Primary Dx) Start: 12-15-2023 ambulatory [facility]elez [facility] [place] Start: 12-15-2023 Patient encounter procedure Patricia Velez MA [facility] [place] Comment on above: Population Health Na vigation Outreach ([facility]) Start: 12-04-2023 Telephone encounter Fiorella moreno MD Work Phone: [facility] [place] Comment on above: Patient Update Start: 12-04-2023 End: 12-04-2023 Office outpatient visit 15 minutes Fiorella Hall MD Work Phone: [facility] [place] Comment on above: Gastritis determined by endoscopy (Primary Dx); Chronic RUQ pain; Constipation, unspecified constipation type Start: 12-04-2023 End: 12-04-2023 ambulatory FIORELLA HALL Facility:[facility] Start: 08-07-2023 End: 08-07-2023 Office outpatient visit 25 minutes Fiorella Hall MD Work Phone: [facility] [place] Comment on above: Vitamin D deficiency (Primary Dx); Essential hypertension; Anxiety, generalized; Acquired hypothyroidism; Recurrent major depressive disorder, in full remission (HCC); Moderate episode of recurrent major depressive disorder (HCC); Disorder of carotid artery (HCC) Start: 03-30-2023 End: 03-30-2023 ambulatory Treatment Rm 12 Mata [facility] Work Phone: Hematology/Oncology Comment on above: Spinal stenosis, lum bar region, without neurogenic claudication (Primary Dx); Sciatica, unspecified laterality Start: 03-25-2023 End: 03-25-2023 ambulatory [facility] Work Phone: Start: 03-25-2023 End: 03-25-2023 Patient encounter procedure [facility] Work Phone: Start: 03-15-2023 Telephone encounter Coco Radha er ENERGY CONSERVATION DIRECTOR.MULTIMEDIA ENGINEER Work Phone: Hematology/Oncology Comment on above: RECLAST START Start: 03-13-2023 Telephone encounter Coco Cleav er ENERGY CONSERVATION DIRECTOR.MULTIMEDIA ENGINEER Work Phone: [facility] [place] Comment on above: Results Start: 03-01-2023 End: 03-01-[address] Fiorella Hall Work Phone: [facility] Work Phone: Start: 03-01-2023 End: 03-01-[address] Fiorella Hall Work Phone: [facility]-Outpatient Bone Densitometry Work Phone: Start: 02-03-2023 End: 02-03-2023 Patient encounter procedure Fiorella Hall MD Work Phone: [facility] [place] Comment on above: Medicare annual well ness [...] Constipation, unspec ified constipation type [K59.00] Start: 11-14-2022 End: 11-14-[address] Fiorella Hall Work Phone: [facility] Work Phone: Start: 11-08-2022 End: 11-08-2022 Patient encounter procedure Sarah Ryan MD Work Phone: General Surgery Comment on above: Constipation, unspec ified constipation type; Screening for colon cancer Start: 11-07-2022 End: 11-07-2022 Patient encounter procedure Coco Ocampo APRN.CNP Work Phone: [facility] [place] Comment on above: Constipation, unspec ified constipation type (Primary Dx) Start: 08-19-2022 End: 08-19-2022 Patient encounter procedure Annemarie Westbrook DO Work Phone: Vascular Surgery Comment on above: Symptomatic varicose veins of both lower extremities (Primary Dx) Start: 07-27-2022 ambulatory [facility] Facility:1 [id number] Start: 07-20-2022 End: 07-20-2022 Office outpatient visit 25 minutes Fiorella Hall MD Work Phone: [facility] [place] Comment on above: Sleep disturbance (P rimary Dx); Anxiety, generalized; Vitamin D deficiency; Acquired hypothyroidism; IFG (impaired fasting glucose); Hyperlipemia, mixed; Encounter for long-term current use of medication; Recurrent major depressive disorder, in full remission (HCC); Gastroesophageal reflux disease without esophagitis; Essential hypertension Start: 07-05-2022 Telephone encounter Fiorella moreno MD Work Phone: [facility] [place] Comment on above: Patient Question Start: 04-25-2022 Non-patient / Non-visit Dr. Blanca Hall Work Phone: [facility] Start: 04-25-2022 End: 04-25-[address] Fiorella Hall Work Phone: [facility] Work Phone: Start: 04-25-2022 End: 04-25-[address] Fiorella Hall Work Phone: [facility] Start: 04-13-2022 End: 04-13-[address] Fiorella Hall Work Phone: [facility] Start: 04-11-2022 Non-patient / Non-visit Dr. 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 Blanca Hall Work Phone: [facility] Start: 03-07-2022 End: 03-07-2022 Emergency department patient visit Dr. Fiorella Hall Work Phone: [facility] Start: 03-06-2022 End: 03-06-2022 Emergency department patient visit Dr. Fiorella Hall Work Phone: [facility] Start: 03-04-2022 End: 03-04-2022 ambulatory Jeancarlos Vasques APRN.[facility]NER Work Phone: [facility] [place] Comment on above: COVID-19 virus infec tion (Primary Dx); Need for influenza vaccination Start: 03-04-2022 End: 03-04-2022 Telemedicine consultation with patient Jeancarlos Vasques C[facility]NER Work Phone: [facility] Start: 03-03-2022 Telephone encounter Fiorella moreno MD Work Phone: [facility] [place] Comment on above: Covid positive on ho me test Start: 01-31-2022 End: 01-31-[address] Fiorella Hall Work Phone: [facility] Work Phone: Start: 01-31-2022 End: 01-31-[address] Fiorella Hall Work Phone: [facility]-Outpatient Breast Imaging Start: 01-14-2022 End: 01-14-2022 Patient encounter procedure Jeancarlos Vasques C[facility]NER Work Phone: [facility] [place] Comment on above: Medicare annual well ness visit, subsequent (Primary Dx); Encounter for immunization; Encounter for screening mammogram for breast cancer; Acquired hypothyroidism; Anxiety, generalized; Moderate episode of recurrent major depressive disorder (HCC); Psychophysiological insomnia; Essential hypertension; Gastroesophageal reflux disease without esophagitis; Hyperlipemia, mixed; Vitamin D deficiency Start: 12-08-2021 End: 12-08-[address] 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) Start: 08-13-2021 End: 08-13-2021 Patient encounter procedure Annemarie Westbrook DO Work Phone: Vascular Surgery Comment on above: Symptomatic varicose veins of both lower extremities (Primary Dx) Start: 07-20-2021 End: 07-20-2021 Office outpatient visit 25 minutes Fiorella Hall MD Work Phone: [facility] [place] Comment on above: Anxiety with depress ion (Primary Dx); Acquired hypothyroidism; Essential hypertension; Vitamin D deficiency; Moderate episode of recurrent major depressive disorder (HCC); Hyperlipemia, mixed; Psychophysiological insomnia; Sleep disturbance Procedures Date Procedure Procedure Detail Performing Clinician Start: 10-18-2024 X-ray of chest, PA a nd lateral views Dr. Fiorella Hall MD Work Phone: Start: 10-18-[address] Fiorella Hall MD Work Phone: Start: 10-05-2024 MRI of lumbar spine Dr. Fiorella Hall MD Work Phone: Start: 08-05-2024 X-ray of ankle, thre e or more views Dr. Fiorella Hall MD Work Phone: Start: 08-05-2024 X-ray of lumbosacral spine Dr. Fiorella Hall MD Work Phone: Start: 01-30-2024 Urnls dip stick/tabl et rgnt auto w/o microscopy Coco Terrence ENERGY CONSERVATION DIRECTOR.MULTIMEDIA ENGINEER Work Phone: Start: 03-25-2023 MRI of lumbar spine Start: 03-01-2023 Dual energy X-ray absorptiometry Dr. Fiorella Hall Work Phone: Start: 03-01-2023 Screening mammography Erwin Hall Work Phone: Start: 01-12-2023 Lipid 1996 panel - S elijah or Plasma Fiorella Hall MD Work Phone: Start: 11-28-2022 Colonoscopy flx dx w /collj spec when pfrmd Sarah Ryan MD Work Phone: Start: 11-28-2022 Colonoscopy Fiorella parmar MD Work Phone: Start: 01-31-2022 End: 01-31-[address] Fiorella Hall Work Phone: Start: 12-08-2021 Plain x-ray of hand Dr. Fiorella Hall Work Phone: Start: 12-08-2021 Plain x-ray of wrist Dr Milton Hall Work Phone: Start: 12-08-2021 X-ray of radius and ulna Dr. Fiorella Hall Work Phone: Start: 01-20-2021 Mammography Annemarie Carine tesfaye DO Work Phone: Start: 04-09-2014 Colonoscopy Annemarie tesfaye DO Work Phone: Plan of Treatment Date Care Activity Detail Author Start: 11-28-2032 Colonoscopy Colonoscopy [facility] Start: 11-28-2032 Colorectal Cancer Screening Colorectal Cancer Screening [facility] Start: 11-28-2032 Screening for malign ant neoplasm of colon [facility] Start: 01-13-2028 Lipid 1996 panel - S elijah or Plasma Lipid Screening [facility] Start: 01-13-2028 Lipid panel Lipid Screening [facility] Start: 08-08-2027 Diabetes Screening Diabetes Screenin [facility] Start: 07-06-2027 LIPID SCREEN LIPID SCREEN [facility] Start: 02-01-2027 Diabetes Screening Diabetes Screenin g [facility] Start: 08-02-2026 Diabetes Screening Diabetes Screenin g [facility] Start: 07-07-2026 LIPID SCREEN LIPID SCREEN [facility] Start: 01-12-2026 Diabetes Screening Diabetes Screenin [facility] Start: 08-15-2025 End: 08-15-2025 Patient encounter procedure 08/15/2025 8:40 AM EDT Office Visit [facility] [place] [address], [place] [id number] Fiorella Hall MD [address] [place] [id number] 6 month follow up [facility] [place] Comment on above: 6 month follow up Start: 08-09-2025 Annual PCP Team Lithograph Designer gerson Disease Visit Annual PCP Team Chronic Disease Visit [facility] Start: 08-09-2025 BP Controlled (<130/80) BP Controlle d (<130/80) [facility] Start: 07-06-2025 DIABETES SCREEN DIABETES SCREEN [facility] Start: 05-28-2025 Screening for malign ant neoplasm of breast Mammogram Screening [facility] Start: 04-01-2025 End: 04-01-2025 Patient encounter procedure Vasculary Surgery Comment on above: Stenosis of right ca rotid artery [I65.21] 1 year follow up Start: 03-15-2025 Annual PCP Team Lithograph Designer gerson Disease Visit Annual PCP Team Chronic Disease Visit [facility] Start: 03-14-2025 End: 03-14-2025 Patient encounter procedure 03/14/2025 8:00 AM EDT Office Visit [facility] [address] [place] [address] Fiorella Hall MD [address] [place] [address] Medicare Wellness [facility] [place] Comment on above: Medicare Wellness Start: 03-07-2025 Screening for osteoporosis Bone Dens ity Screening [facility] Start: 02-06-2025 Annual PCP Team Lithograph Designer gerson Disease Visit Annual PCP Team Chronic Disease Visit [facility] Start: 02-06-2025 BP Controlled (<130/80) BP Controlle d (<130/80) [facility] Start: 01-29-2025 Annual PCP Team Lithograph Designer gerson Disease Visit Annual PCP Team Chronic Disease Visit [facility] Start: 2024 RSV Vaccine (1 - 1-d ose 75+ series) RSV Vaccine (1 - 1-dose 75+ series) [facility] Start: 12-03-2024 Annual PCP Team Lithograph Designer gerson Disease Visit Annual PCP Team Chronic Disease Visit [facility] Start: 10-18-2024 [facility] Start: 10-18-2024 [facility] Start: 08-09-2024 End: 08-09-2024 Patient encounter procedure 08/09/2024 8:40 AM EDT Office Visit [facility] [place] [address] [facility] [place] [address] Fiorella Hall MD [address] [place], [place] [id number] 6 mo follow up [facility] [place] Comment on above: 6 mo follow up Start: 08-06-2024 Annual PCP Team Lithograph Designer gerson Disease Visit Annual PCP Team Chronic Disease Visit [facility] Start: 08-06-2024 BP Controlled (<130/80) BP Controlle d (<130/80) [facility] Start: 07-07-2024 DIABETES SCREEN DIABETES SCREEN [facility] Start: 05-15-2024 Advance Directive Discussion Advance Directive Discussion [facility] Start: 04-09-2024 Colonoscopy COLONOSCOPY [facility] Start: 04-09-2024 COLORECTAL CANCER SCREENING COLORECTAL CANCER SCREENING [facility] Start: 04-08-2024 End: 07-08-2024 Hemoglobin A1c in Blood HEMOGLOBIN A1C Lab Routine IFG (impaired fasting glucose) Expected: 04/08/2024 (Approximate), Expires: 07/08/2024 [facility] Comment on above: Expected: 04/08/2024 (Approximate), Expires: 07/08/2024 Start: 04-08-2024 End: 07-08-2024 Lipid 1996 panel - Serum or Plasma LIPID PANEL BASIC Lab Routine Essential hypertension Expected: 04/08/2024 (Approximate), Expires: 07/08/2024 [facility] Comment on above: Expected: 04/08/2024 (Approximate), Expires: 07/08/2024 Start: 04-08-2024 End: 07-08-2024 Magnesium [Mass/volume] in Serum or Plasma MAGNESIUM Lab Routine Hypomagnesemia Expected: 04/08/2024 (Approximate), Expires: 07/08/2024 [facility] Comment on above: Expected: 04/08/2024 (Approximate), Expires: 07/08/2024 Start: 04-03-2024 End: 04-03-2024 ambulatory Hematology/Oncology Comment on above: 2nd Floor-Reclast(Au th.Exp.?)* 2nd Start: 04-02-2024 End: 04-02-2024 Patient encounter procedure Vasculary Surgery Comment on above: Stenosis of right ca rotid artery [I65.21] follow up after test ing Start: 03-15-2024 Annual PCP Team Lithograph Designer gerson Disease Visit Annual PCP Team Chronic Disease Visit [facility] Start: 03-15-2024 BP Controlled (<130/80) BP Controlle d (<130/80) [facility] Start: 03-15-2024 End: 03-15-2024 Patient encounter procedure 03/15/2024 2:00 PM EDT Office Visit [facility] [place] [address], [place] [address] Coco Ocampo APRN.MULTIMEDIA ENGINEER [address] [place], [place] [phone] [facility] Follow Up Discharged 03/05/2024; Stent Placement [facility] [place] Comment on above: [facility] Follow Up Discha rged 03/05/2024; Stent Placement Start: 03-04-2024 End: 03-04-2024 Patient encounter procedure 03/04/2024 8:10 AM EDT Appointment Mammogram [address] [place], [place] [phone] Breast cancer screening by mammogram [Z12.31] Mammogram Comment on above: Breast cancer screen ing by mammogram [Z12.31] Start: 03-01-2024 Mammography Mammogram Screening [facility] Start: 03-01-2024 Screening for malign ant neoplasm of breast Mammogram Screening [facility] Start: 02-13-2024 Covid-19 Vaccine ( season) Covid-19 Vaccine ( season) [facility] Comment on above: Postponed from 01/13 (Declined at this time) Start: 02-13-2024 Influenza vaccination Influenza Vacc ine (#1) [facility] Comment on above: Postponed from 01/13 (Declined at this time) Start: 02-07-2024 End: 02-07-2024 Patient encounter procedure 02/07/2024 8:00 AM EDT Office Visit [facility] [place] [address], [place] [phone] Fiorella Hall MD [address] [place] [address] Medicare Wellness [facility] Comment on above: Medicare Wellness Start: 02-04-2024 Annual PCP Team Lithograph Designer gerson Disease Visit Annual PCP Team Chronic Disease Visit [facility] Start: 02-04-2024 BP Controlled (<130/80) BP Controlle d (<130/80) [facility] Start: 01-14-2024 Covid-19 Vaccine () Covid-19 Vaccine () [facility] Start: 01-14-2024 Covid-19 Vaccine () Covid-19 Vaccine () [facility] Start: 01-14-2024 Influenza vaccination Influenza Vacc ine (#1) [facility] Start: 01-13-2024 Hepatitis B surface antibody level LDL Cholesterol [facility] Start: 11-09-2023 BP CONTROLLED (<130/80) BP CONTROLLE D (<130/80) [facility] Start: 11-08-2023 ANNUAL PCP TEAM [employer] GERSON DISEASE VISIT ANNUAL PCP TEAM CHRONIC DISEASE VISIT [facility] Start: 07-21-2023 ANNUAL PCP TEAM [employer] DR[employer] [place]ERSON DISEASE VISIT ANNUAL PCP TEAM CHRONIC DISEASE VISIT [facility] Start: 07-21-2023 COVID-19 VACCINE (4 - Booster for Pfizer series) COVID-19 VACCINE (4 - Booster for Pfizer series) [facility] Comment on above: Postponed from 04/15 (Declined at this time) Start: 07-21-2023 Urine microalbumin profile [facility] Comment on above: Postponed from 09/08 (Declined at this time) Start: 05-15-2023 Advance Directive Discussion Advance Directive Discussion [facility] Start: 01-31-2023 Mammography MAMMOGRAM [facility] Start: 01-20-2023 End: 03-22-2023 25-hydroxyvitamin D3 [Mass/volume] in Serum or Plasma VITAMIN D 25 HYDROXY Lab Routine Vitamin D deficiency Expected: 01/20/2023 (Approximate), Expires: 03/22/2023 [facility] Work Phone: Comment on above: Expected: 01/20/2023 (Approximate), Expires: 03/22/2023 Start: 01-20-2023 End: 03-22-2023 CBC panel - Blood by Automated count CBC Lab Routine Encounter for long-term current use of medication Expected: 01/20/2023 (Approximate), Expires: 03/22/2023 [facility] Work Phone: Comment on above: Expected: 01/20/2023 (Approximate), Expires: 03/22/2023 Start: 01-20-2023 End: 03-22-2023 Comprehensive metabolic 2000 panel - Serum or Plasma COMP METABOLIC PANEL Lab Routine Encounter for long-term current use of medication IFG (impaired fasting glucose) Expected: 01/20/2023 (Approximate), Expires: 03/22/2023 [facility] Work Phone: Comment on above: Expected: 01/20/2023 (Approximate), Expires: 03/22/2023 Start: 01-20-2023 End: 03-22-2023 Hemoglobin A1c in Blood HGB A1C Lab Routine IFG (impaired fasting glucose) Expected: 01/20/2023 (Approximate), Expires: 03/22/2023 [facility] Work Phone: Comment on above: Expected: 01/20/2023 (Approximate), Expires: 03/22/2023 Start: 01-20-2023 End: 03-22-2023 Lipid 1996 panel - Serum or Plasma LIPID PANEL BASIC Lab Routine Hyperlipemia, mixed Expected: 01/20/2023 (Approximate), Expires: 03/22/2023 [facility] Work Phone: Comment on above: Expected: 01/20/2023 (Approximate), Expires: 03/22/2023 Start: 01-14-2023 BP CONTROLLED (<130/80) BP CONTROLLE D (<130/80) [facility] Start: 01-13-2023 Covid-19 Vaccine () Covid-19 Vaccine () [facility] Start: 01-13-2023 Influenza vaccination INFLUENZA (#1) [facility] Start: 08-24-2022 BP CONTROLLED (<130/80) BP CONTROLLE D (<130/80) [facility] Start: 08-13-2022 BP CONTROLLED (<130/80) BP CONTROLLE D (<130/80) [facility] Start: 07-20-2022 ANNUAL PCP TEAM [place] [employer] [place] DISEASE VISIT ANNUAL PCP TEAM CHRONIC DISEASE VISIT [facility] Start: 06-15-2022 End: 08-12-2022 25-hydroxyvitamin D3 [Mass/volume] in Serum or Plasma VITAMIN D 25 HYDROXY Lab Routine Vitamin D deficiency Expected: 06/15/2022 (Approximate), Expires: 08/12/2022 [facility] Work Phone: Comment on above: Expected: 06/15/2022 (Approximate), Expires: 08/12/2022 Start: 06-15-2022 End: 08-12-2022 Comprehensive metabolic 2000 panel - Serum or Plasma COMP METABOLIC PANEL Lab Routine Acquired hypothyroidism Essential hypertension Expected: 06/15/2022 (Approximate), Expires: 08/12/2022 [facility] Work Phone: Comment on above: Expected: 06/15/2022 (Approximate), Expires: 08/12/2022 Start: 06-15-2022 End: 08-12-2022 Lipid 1996 panel - Serum or Plasma LIPID PANEL BASIC Lab Routine Hyperlipemia, mixed Expected: 06/15/2022 (Approximate), Expires: 08/12/2022 [facility] Work Phone: Comment on above: Expected: 06/15/2022 (Approximate), Expires: 08/12/2022 Start: 06-15-2022 End: 08-12-2022 Screening mammography bi 2-view breast inc cad CAROLYN SCREENING Radiology Routine Encounter for screening mammogram for breast cancer Expected: 06/15/2022 (Approximate), Expires: 08/12/2022 [facility] Work Phone: Comment on above: Expected: 06/15/2022 (Approximate), Expires: 08/12/2022 Start: 06-15-2022 End: 08-12-2022 Thyrotropin [Units/volume] in Serum or Plasma TSH BLD Lab Routine Acquired hypothyroidism Expected: 06/15/2022 (Approximate), Expires: 08/12/2022 [facility] Work Phone: Comment on above: Expected: 06/15/2022 (Approximate), Expires: 08/12/2022 Start: 05-16-2022 COVID-19 VACCINE (4 - Booster for Pfizer series) COVID-19 VACCINE (4 - Booster for Pfizer series) [facility] Comment on above: Postponed from 06/21 (Insurance Coverage) Postponed from 04/15 (Insurance Coverage) Start: 05-16-2022 Influenza vaccination INFLUENZA (#1) [facility] Comment on above: Postponed from 01/13 (Insurance Coverage) Start: 05-16-2022 Urine microalbumin profile DTA P,TDAP,TD (2 - Td or Tdap) [facility] Comment on above: Postponed from 09/08 (Insurance Coverage) Start: 05-15-2022 ADVANCE DIRECTIVE DISCUSSION ADVANCE DIRECTIVE DISCUSSION [facility] Start: 03-07-2022 Lipase measurement [facility] Work Phone: Start: 03-07-2022 End: 03-07-2022 [facility] Work Phone: Start: 03-06-2022 [facility] Work Phone: Start: 01-20-2022 Mammography MAMMOGRAM [facility] Start: 01-13-2022 Influenza vaccination INFLUENZA (#1) [facility] Start: 09-08-2021 Urine microalbumin profile [facility] Start: 06-21-2021 COVID-19 VACCINE (4 - Booster for Pfizer series) COVID-19 VACCINE (4 - Booster for Pfizer series) [facility] Start: 05-15-2021 ADVANCE DIRECTIVE DISCUSSION ADVANCE DIRECTIVE DISCUSSION [facility] Start: 04-15-2021 COVID-19 VACCINE (4 - Booster for Pfizer series) COVID-19 VACCINE (4 - Booster for Pfizer series) [facility] Start: 2009 RSV Vaccine (1 - 1-d ose 60+ series) RSV Vaccine (1 - 1-dose 60+ series) [facility] Start: 1994 COLOGUARD (FIT-DNA) [facility] Start: [address] COLONOGRAPHY [facility] Start: 1994 FECAL OCCULT BLOOD FECAL OCCULT BLOO D [facility] Start: 1994 Screening for malign ant neoplasm of colon [facility] Start: 1994 SIGMOIDOSCOPY SIGMOIDOSCOPY [facility] End: 02-03-2024 25-hydroxyvitamin D3 [Mass/volume] in Serum or Plasma VITAMIN D 25 HYDROXY Lab Routine Vitamin D deficiency Encounter for long-term current use of medication Every 6 months for 3 Occurrences starting 02/03/2023 until 02/03/2024 [facility] Work Phone: Comment on above: Every 6 months for 3 Occurrences starting 02/03/2023 until 02/03/2024 End: 02-06-2025 25-hydroxyvitamin D3 [Mass/volume] in Serum or Plasma VITAMIN D 25 HYDROXY Lab Routine Encounter for long-term current use of medication Vitamin D deficiency Every 6 months for 90 Occurrences starting 02/07/2024 until 02/06/2025 [facility] Comment on above: Every 6 months for 9 0 Occurrences starting 02/07/2024 until 02/06/2025 Alanine aminotransfe rase [Enzymatic activity/volume] in Serum or Plasma [facility] Work Phone: Albumin [Mass/volume ] in Serum or Plasma [facility] Work Phone: Alkaline phosphatase [Enzymatic activity/volume] in Serum or Plasma [facility] Work Phone: Anion gap measurement [facility] Work Phone: Aspartate aminotrans ferase [Enzymatic activity/volume] in Serum or Plasma [facility] Work Phone: Bilirubin, total measurement [facility] Work Phone: BUN/Creatinine ratio [facility] Work Phone: Calcium [Mass/volume ] in Serum or Plasma [facility] Work Phone: Carbon dioxide, tota l [Moles/volume] in Serum or Plasma [facility] Work Phone: End: 02-03-2024 CBC panel - Blood by Automated count CBC Lab Routine Encounter for long-term current use of medication Every 6 months for 3 Occurrences starting 02/03/2023 until 02/03/2024 [facility] Work Phone: Comment on above: Every 6 months for 3 Occurrences starting 02/03/2023 until 02/03/2024 End: 02-06-2025 CBC panel - Blood by Automated count COMPLETE BLOOD COUNT Lab Routine Encounter for long-term current use of medication Every 6 months for 90 Occurrences starting 02/07/2024 until 02/06/2025 [facility] Comment on above: Every 6 months for 9 0 Occurrences starting 02/07/2024 until 02/06/2025 Chloride [Moles/volu me] in Serum or Plasma [facility] Work Phone: End: 02-03-2024 Comprehensive metabolic 2000 panel - Serum or Plasma COMP METABOLIC PANEL Lab Routine Encounter for long-term current use of medication Every 6 months for 3 Occurrences starting 02/03/2023 until 02/03/2024 [facility] Work Phone: Comment on above: Every 6 months for 3 Occurrences starting 02/03/2023 until 02/03/2024 End: 02-06-2025 Comprehensive metabolic 2000 panel - Serum or Plasma COMPREHENSIVE METABOLIC PANEL Lab Routine Encounter for long-term current use of medication Every 6 months for 90 Occurrences starting 02/07/2024 until 02/06/2025 [facility] Comment on above: Every 6 months for 9 0 Occurrences starting 02/07/2024 until 02/06/2025 Creatinine [Moles/vo lume] in Serum or Plasma [facility] Work Phone: CT angiography of co ronary arteries [facility] Work Phone: End: 05-02-2025 DBT Breast - bilateral screening CAROLYN SCREENING W [facility] Radiology Routine Encounter for screening mammogram for breast cancer 1 Occurrences starting 04/02/2024 until 05/02/2025 [facility] Work Phone: Comment on above: 1 Occurrences starti ng 04/02/2024 until 05/02/2025 End: 06-19-2025 DBT Breast - bilateral screening CAROLYN SCREENING [facility] Radiology Routine Screening mammogram for breast cancer 1 Occurrences starting 05/20/2024 until 06/19/2025 [facility] Work Phone: Comment on above: 1 Occurrences starti ng 05/20/2024 until 06/19/2025 DBT Breast - bilater al screening CAROLYN SCREENING [facility] Radiology Routine Screening mammogram for breast cancer 05/28/2024 9:27 AM EST [facility] Work Phone: End: 03-04-2024 DXA-AXIAL SKELETON DXA-AXIAL SKELETON Radiology Routine Asymptomatic postmenopausal state 1 Occurrences starting 02/03/2023 until 03/04/2024 [facility] Work Phone: Comment on above: 1 Occurrences starti ng 02/03/2023 until 03/04/2024 Glucose [Mass/volume ] in Serum or Plasma [facility] Work Phone: Hematocrit [Volume Fraction] of Blood [facility] Work Phone: Hemoglobin [Mass/vol ume] in Blood [facility] Work Phone: End: 08-09-2025 Hemoglobin A1c in Blood HEMOGLOBIN A1C Lab Routine IFG (impaired fasting glucose) Every 6 months for 60 Occurrences starting 08/09/2024 until 08/09/2025 [facility] Comment on above: Every 6 months for 6 0 Occurrences starting 08/09/2024 until 08/09/2025 Hepatic function panel [facility] Leukocytes [#/volume ] in Blood [facility] Work Phone: Lipase measurement [facility] Work Phone: End: 08-09-2025 Lipid 1995 panel - Serum or Plasma LIPID PANEL, FASTING Lab Routine Hyperlipemia, mixed Every 6 months for 60 Occurrences starting 08/09/2024 until 08/09/2025 [facility] Work Phone: Comment on above: Every 6 months for 6 0 Occurrences starting 08/09/2024 until 08/09/2025 Lipid 1995 panel - S elijah or Plasma [facility] End: 02-03-2024 Magnesium [Mass/volume] in Serum or Plasma MAGNESIUM BLD Lab Routine Hypomagnesemia Encounter for long-term current use of medication Every 6 months for 3 Occurrences starting 02/03/2023 until 02/03/2024 [facility] Work Phone: Comment on above: Every 6 months for 3 Occurrences starting 02/03/2023 until 02/03/2024 End: 02-06-2025 Magnesium [Mass/volume] in Serum or Plasma MAGNESIUM Lab Routine Hypomagnesemia Encounter for long-term current use of medication Every 6 months for 90 Occurrences starting 02/07/2024 until 02/06/2025 [facility] Comment on above: Every 6 months for 9 0 Occurrences starting 02/07/2024 until 02/06/2025 End: 03-04-2024 CAROLYN SCREENING W KIKE CAROLYN SCREENING W KIKE Radiology Routine Breast cancer screening by mammogram 1 Occurrences starting 02/03/2023 until 03/04/2024 [facility] Work Phone: Comment on above: 1 Occurrences starti ng 02/03/2023 until 03/04/2024 Mean corpuscular hemoglobin concentration determination [facility] Work Phone: Mean corpuscular hemoglobin determination [facility] Work Phone: Measurement of renal function [facility] Work Phone: Neutrophil count [facility] Work Phone: Neutrophil percent differential count [facility] Work Phone: Patient Education [facility] Work Phone: Patient referral [facility] Work Phone: Platelets [#/volume] in Blood [facility] Work Phone: Potassium [Moles/vol ume] in Serum or Plasma [facility] Work Phone: Radionuclide imaging of perfusion of myocardium under exercise stress [facility] Red blood cell count [facility] Work Phone: Red cell distributio n width determination [facility] Work Phone: End: 11-09-2023 Screening colonoscopy COLONOSCOPY SCREENING Endoscopy Routine Constipation, unspecified constipation type Screening for colon cancer 1 Occurrences starting 11/08/2022 until 11/09/2023 [facility] Work Phone: Comment on above: 1 Occurrences starti ng 11/08/2022 until 11/09/2023 Sodium [Moles/volume ] in Serum or Plasma [facility] Work Phone: End: 12-02-2022 Thyrotropin [Units/volume] in Serum or Plasma TSH BLD Lab Routine Acquired hypothyroidism Every 2 months for 6 Occurrences starting 12/02/2021 until 12/02/2022 [facility] Work Phone: Comment on above: Every 2 months for 6 Occurrences starting 12/02/2021 until 12/02/2022 End: 02-04-2024 Thyrotropin [Units/volume] in Serum or Plasma TSH BLD Lab Routine Acquired hypothyroidism Every 2 months for 6 Occurrences starting 02/03/2023 until 02/04/2024 [facility] Work Phone: Comment on above: Every 2 months for 6 Occurrences starting 02/03/2023 until 02/04/2024 End: 02-06-2025 Thyrotropin [Units/volume] in Serum or Plasma THYROID STIMULATING HORMONE Lab Routine Acquired hypothyroidism 90 Occurrences starting 02/07/2024 until 02/06/2025 [facility] Work Phone: Comment on above: 90 Occurrences start ing 02/07/2024 until 02/06/2025 End: 12-02-2022 Thyroxine (T4) free [Mass/volume] in Serum or Plasma T4 FREE/FREE THYROX Lab Routine Acquired hypothyroidism Every 2 months for 6 Occurrences starting 12/02/2021 until 12/02/2022 [facility] Work Phone: Comment on above: Every 2 months for 6 Occurrences starting 12/02/2021 until 12/02/2022 End: 02-04-2024 Thyroxine (T4) free [Mass/volume] in Serum or Plasma T4 FREE/FREE THYROX Lab Routine Acquired hypothyroidism Every 2 months for 6 Occurrences starting 02/03/2023 until 02/04/2024 [facility] Work Phone: Comment on above: Every 2 months for 6 Occurrences starting 02/03/2023 until 02/04/2024 End: 02-06-2025 Thyroxine (T4) free [Mass/volume] in Serum or Plasma T4 FREE/FREE THYROXINE Lab Routine Acquired hypothyroidism Every 2 months for 90 Occurrences starting 02/07/2024 until 02/06/2025 [facility] Comment on above: Every 2 months for 9 0 Occurrences starting 02/07/2024 until 02/06/2025 Total protein measurement [facility] Work Phone: End: 12-02-2022 Triiodothyronine (T3) Free [Mass/volume] in Serum or Plasma T3 FREE BLD Lab Routine Acquired hypothyroidism Every 2 months for 6 Occurrences starting 12/02/2021 until 12/02/2022 [facility] Work Phone: Comment on above: Every 2 months for 6 Occurrences starting 12/02/2021 until 12/02/2022 End: 02-04-2024 Triiodothyronine (T3) Free [Mass/volume] in Serum or Plasma T3 FREE BLD Lab Routine Acquired hypothyroidism Every 2 months for 6 Occurrences starting 02/03/2023 until 02/04/2024 [facility] Work Phone: Comment on above: Every 2 months for 6 Occurrences starting 02/03/2023 until 02/04/2024 End: 02-06-2025 Triiodothyronine (T3) Free [Mass/volume] in Serum or Plasma T3, FREE Lab Routine Acquired hypothyroidism Every 2 months for 90 Occurrences starting 02/07/2024 until 02/06/2025 [facility] Comment on above: Every 2 months for 9 0 Occurrences starting 02/07/2024 until 02/06/2025 UA DIP B/O UA DIP B/O Lab R outine Acute cystitis without hematuria Ordered: 01/30/2024 [facility] Work Phone: Comment on above: Ordered: 01/30/2024 Urea nitrogen [Mass/volume] in Serum or Plasma [facility] Work Phone: End: 04-02-2025 US Carotid arteries - bilateral US CAROTID ARTERIES [facility] Vascular Lab Routine Stenosis of right carotid artery 1 Occurrences starting 04/02/2024 until 04/02/2025 [facility] Work Phone: Comment on above: 1 Occurrences starti ng 04/02/2024 until 04/02/2025 End: 08-24-2022 US CAROTID ARTERIES [facility] US CAROTID ARTERIES [facility] Vascular Lab Routine Stenosis of right carotid artery 1 Occurrences starting 08/24/2021 until 08/24/2022 [facility] Work Phone: Comment on above: 1 Occurrences starti ng 08/24/2021 until 08/24/2022 End: 03-29-2023 US CAROTID ARTERIES [facility] US CAROTID ARTERIES [facility] Vascular Lab Routine Stenosis of right carotid artery 1 Occurrences starting 03/29/2022 until 03/29/2023 [facility] Work Phone: Comment on above: 1 Occurrences starti ng 03/29/2022 until 03/29/2023 [facility] Immunizations Immunization Date Immunization Notes Care Provider [facility] 02-10-2023 influenza (aIIV4) vaccine, age 65+ yr, quadrivalent, PF (FLUAD QUAD) Coco Ocampo APRN.[facility] Work Phone: [facility] Work Phone: 02-10-2023 influenza (HD-IIV4) vaccine, age 65+ yr, high dose, quadrivalent, PF (FLUZONE HIGH-DOSE) Coco Ocampo APRN.[facility] Work Phone: [facility] Work Phone: 02-10-2023 influenza virus vacc ine, unspecified formulation Fiorella Hall MD Work Phone: [facility] 02-09-2022 influenza (HD-IIV4) vaccine, age 65+ yr, high dose, quadrivalent, PF (FLUZONE HIGH-DOSE) Fiorella Hall MD Work Phone: [facility] 02-09-2022 influenza, injectabl e, quadrivalent, contains preservative Jeancarlos Vasques ENERGY CONSERVATION DIRECTOR.[employer] Work Phone: [facility] Work Phone: 02-11-2021 influenza (HD-IIV4) vaccine, age 65+ yr, high dose, quadrivalent, PF (FLUZONE HIGH-DOSE) Fiorella Hall MD Work Phone: [facility] 08-07-2020 COVID-19 vaccine, ag e 12+ yr (PFIZER-BIONTECH - PURPLE TOP) Annemarie Cedrick DO Work Phone: [facility] 07-17-2020 COVID-19 vaccine, ag e 12+ yr (PFIZER-BIONTECH - PURPLE TOP) Annemarie Westbrook DO Work Phone: [facility] Work Phone: 02-01-2020 influenza (aIIV4) vaccine, age 65+ yr, quadrivalent, PF (FLUAD QUAD) Fiorella Hall MD Work Phone: [facility] 02-01-2020 influenza, high dose seasonal, preservative-free Annemarie Westbrook DO Work Phone: [facility] 03-08-2019 zoster vaccine recombinant Annemarie Westbrook DO Work Phone: [facility] 01-08-2019 influenza, high dose seasonal, preservative-free Annemarie Westbrook DO Work Phone: [facility] 01-08-2019 zoster vaccine recombinant Annemarie Westbrook DO Work Phone: [facility] 08-31-2018 zoster vaccine recombinant Annemarie Westbrook DO Work Phone: [facility] 02-05-2018 influenza, high dose seasonal, preservative-free Annemarie Westbrook DO Work Phone: [facility] 06-20-2016 influenza, high dose seasonal, preservative-free Annemarie Westbrook DO Work Phone: [facility] 06-20-2016 pneumococcal polysaccharide vaccine, 23 valent Annemarie Westbrook DO Work Phone: [facility] 04-07-2015 influenza, high dose seasonal, preservative-free Annemarie Westbrook DO Work Phone: [facility] 01-06-2015 pneumococcal conjuga te vaccine, 13 valent Annemarie Westbrook DO Work Phone: [facility] 03-13-2014 influenza, seasonal, injectable Annemarie Westbrook DO Work Phone: [facility] 04-19-2012 influenza virus vacc ine, unspecified formulation Annemarie Westbrook DO Work Phone: [facility] 09-09-2011 tetanus toxoid, redu lucia diphtheria toxoid, and acellular pertussis vaccine, adsorbed Annemarie Westbrook DO Work Phone: [facility] 03-11-2011 influenza virus vacc ine, unspecified formulation Annemarie Westbrook DO Work Phone: [facility] 03-23-2010 influenza virus vacc ine, unspecified formulation Annemarie Westbrook DO Work Phone: [facility] 04-08-2008 influenza virus vacc ine, unspecified formulation Annemarie Westbrook DO Work Phone: [facility] Work Phone: 03-30-2007 influenza virus vacc ine, unspecified formulation Annemarie Westbrook DO Work Phone: [facility] Work Phone: 03-28-2006 influenza virus vacc ine, unspecified formulation Annemarie Westbrook DO Work Phone: [facility] 05-12-2005 influenza virus vacc ine, unspecified formulation Annemarie Westbrook DO Work Phone: [facility] Work Phone: Payers Date Payer Category Payer Self-pay [id number] 2022 Medicare UHC MEDICARE UHC MEDICARE ADVANTAGE PPO [id number] 2022-Present [phone] [address] [address] [place] [address] PPO [id number] 2022 Medicare (Managed Care) [facility] MEDI CARE ADVANTAGE PPO [id number] 2022 Unknown [id number] 2015 Unknown ANTHEM BLUE CROS S AND BLUE SHIELD ANTHEM MEDIBLUE ACCESS [id number] 2015-Present [phone] [address] [place] [address] PPO [id number] 2015 Unknown [id number] Medicare ANTHEM MEDICARE SENIOR ADVANTA [id number] Unknown [id number] [id number]. 2.462 Unknown [id number] 2.16840.1.101814.3.579. 2.462 Unknown [id number] 2.16840.1.955413.3.579. 2.462 Unknown [id number] 2.16840.1.453667.3.579. 2.462 Unknown [id number] 2.16.840.1.583091.3.579. 2.462 Unknown [id number] 2.16.840.1.088577.3.579. 2.462 Unknown [id number] 2.16.840.1.815898.3.579. 2.462 Unknown [id number] 2.16.840.1.189142.3.579. 2.462 Unknown [id number] 2.16.840.1.142659.3.579. 2.462 Unknown [id number] 2.16.840.1.285899.3.579. 2.462 Unknown [id number] 2.16.840.1.881655.3.579. 2.462 Unknown [id number] 2.16.840.1.936219.3.579. 2.462 Unknown [id number] 2.840.1.315147.3.579. 2.462 Unknown [id number] 2.840.1.333877.3.579. 2.462 Unknown [id number] 2.16840.1.048378.3.579. 2.462 Unknown [id number] 2.16.840.1.039614.3.579. 2.462 Unknown [id number] 2.16.840.1.385007.3.579. 2.462 Unknown [id number] 2.16.840.1.867215.3.579. 2.462 Unknown [id number] 2.16.840.1.399473.3.579. 2.462 Unknown [id number] 2.16.840.1.465932.3.579. 2.462 Unknown [id number] 2.16.840.1.443154.3.579. 2.462 Unknown [id number] 2.16.840.1.032852.3.579. 2.462 Unknown [id number] 2.16.840.1.961626.3.579. 2.462 Unknown [id number] 2.16.840.1.823178.3.579. 2.462 Unknown [id number] 2.16.840.1.390248.3.579. 2.462 Unknown [id number] 2.16.840.1.873608.3.579. 2.462 Unknown [id number] 2.16.840.1.494158.3.579. 2.462 Unknown [id number] 2.16.840.1.624082.3.579. 2.462 Unknown [id number] 2.16.840.1.305763.3.579. 2.462 Social History Date Type Detail Facility Start: 01-14-2022 End: 10-18-2024 Tobacco smoking status NHIS Ex-smoker [facility] Start: 05-15-1986 History of tobacco use Smoker [facility] Start: 08-13-2021 End: 04-02-2024 Alcohol intake Current drinker of alcohol (finding) [facility] Start: 08-13-2021 End: 11-08-2022 Alcohol intake [facility] Start: 12-22-2019 End: 01-10-2022 History SDOH Financial 5 [facility] Start: 12-22-2019 End: 01-10-2022 History SDOH Food Worry 1 [facility] Start: 12-22-2019 End: 01-10-2022 History SDOH Transport Med 2 [facility] Start: 1950 Sex Assigned At Female [facility] Start: 06-20-2021 End: 01-14-2022 Exposure to SARS-CoV-2 (event) Not sure [facility] Start: 08-14-2021 End: 08-24-2021 Exposure to SARS-CoV-2 (event) Unable to assess [facility] Start: 05-15-1986 History of tobacco use Cigarette Smo ker [facility] Work Phone: Start: 01-14-2022 End: 01-30-2024 Tobacco use and exposure Smokeless tobacco non-user [facility] Work Phone: Start: 01-10-2022 History SDOH Alcohol Frequency 3 [facility] Start: 01-10-2022 History SDOH Social Connections Get Together 98 [facility] Start: 12-08-2021 End: 11-14-2022 Tobacco smoking status NHIS Unknown if ever smoked [facility] Start: 02-22-2022 End: 03-04-2022 Exposure to SARS-CoV-2 (event) Yes [facility] Work Phone: Start: 11-08-2022 End: 01-27-2023 [facility] EDITION F GmbHities [facility] Has the [employer], or water [employer] threatened to shut off services in your home in past 12Mo Patient refused [facility] Are you now , , , , never or living with a partner? Refused [facility] Do you feel stress - tense, restless, nervous, or anxious, or unable to sleep at night because your mind is troubled all the time - these days [OSQ] Not at all [facility] (I/We) worried wheth er (my/our) food would run out before (I/we) got money to buy more. DK or Refused [facility] In the past 12 month s, was there a time when you were not able to pay the mortgage or rent on time? No [facility] Start: 05-09-2019 Gender identity Identifies as female gender (finding) [facility] Start: 05-09-2019 Sexual orientation Heterosexual (marc markham) [facility] Are you now , , , , never or living with a partner? [facility] How often to you hav e a drink containing alcohol? 2-4 times a month [facility] How many standard drinks containing alcohol do you have on a typical day? 1 or 2 [facility] How often do you hav e 6 or more drinks on 1 occasion? Never [facility] (I/We) worried wheth er (my/our) food would run out before (I/we) got money to buy more. Never true [facility] Medical Equipment Procedure Code Equipment Code Equipment Origin al Text Equipment Identifier Dates PATCH,AMNION 2X3CM FDA Start: 09-10-2020 PATCH,AMNION 2X3CM FDA Start: 09-10-2020 PATCH,AMNION 2X3CM FDA Start: 09-10-2020 PATCH,AMNION 2X3CM FDA Start: 09-10-2020 PATCH,AMNION 2X3CM FDA Start: 09-10-2020 PATCH,AMNION 2X3CM FDA Start: 09-10-2020 PATCH,AMNION 2X3CM FDA Start: 09-10-2020 PATCH,AMNION 2X3CM FDA Start: 09-10-2020 PATCH,AMNION 2X3CM FDA Start: 09-10-2020 PATCH,AMNION 2X3CM FDA Start: 09-10-2020 PATCH,AMNION 2X3CM FDA Start: 09-10-2020 PATCH,AMNION 2X3CM FDA Start: 09-10-2020 PATCH,AMNION 2X3CM FDA Start: 09-10-2020 PATCH,AMNION 2X3CM FDA Start: 09-10-2020 Drug-eluting coronary artery stent, [id number] lymer-coated [id number] FDA Start: 03-05-2024 PATCH,AMNION 2X3CM FDA Start: 09-10-2020 PATCH,AMNION 2X3CM FDA Start: 09-10-2020 PATCH,AMNION 2X3CM FDA Start: 09-10-2020 PATCH,AMNION 2X3CM FDA Start: 09-10-2020 PATCH,AMNION 2X3CM FDA Start: 09-10-2020 PATCH,AMNION 2X3CM FDA Start: 09-10-2020 PATCH,AMNION 2X3CM FDA Start: 09-10-2020 PATCH,AMNION 2X3CM FDA Start: 09-10-2020 PATCH,AMNION 2X3CM FDA Start: 09-10-2020 PATCH,AMNION 2X3CM FDA Start: 09-10-2020 Goals Date Patient Goal Desired Activity /State Personal health goal Functional Status Date Assessment Result Facility 11-14-2014 Are you deaf, or do you have serious difficulty hearing No 11/14/2014 8:47 AM Bella Morelos LPN No [facility] 11-14-2014 Are you blind, or do you have serious difficulty seeing, even when wearing glasses No 11/14/2014 8:47 AM Bella Morelos LPN No [facility] 11-14-2014 Do you have serious difficulty walking or climbing stairs No 11/14/2014 8:47 AM Bella Morelos LPN No [facility] 11-14-2014 Do you have difficul ty dressing or bathing No 11/14/2014 8:47 AM Bella Morelos LPN No [facility] 11-14-2014 Because of a physica l, mental, or emotional condition, do you have difficulty doing errands alone such as visiting a physician's office or shopping No 11/14/2014 8:47 AM Bella Morelos LPN No [facility] Mental Status Date Assessment Result Facility 10-18-2024 Cognitive function Awake;Alert;A ppropriate;Fol lows Commands [facility] Work Phone: 03-07-2022 Cognitive function Level Of Cons ciousness Awake;Appropriate;Drowsy [facility] Work Phone: 03-06-2022 Cognitive function Level Of Cons ciousness Awake;Alert;Appropriate;Fol lows Commands;Responds to vocal stimuli [facility] Work Phone: 11-14-2014 Because of a physica l, mental, or emotional condition, do you have serious difficulty concentrating, remembering, or making decisions No 11/14/2014 8:47 AM Bella Morelos LPN No [facility] Clinical Notes 07-20-2021 to 10-23-2024 Note Date & Type Note Facility 10-23-2024 Progress note [facility] 10-23-2024 Progress note Note Date/Time October 23, 2024 10:29am [facility] [address] [place] [address] OFFICE VISIT Date of Service: 10/23/24 MR#: [id number] Acct: [id number] Name: AMINA TOBAR Rep #: [id number] : 1950 Provider: ROXANA Bey Age/Sex: 73/F Location: [facility] Status: Signed HPI HPI History of Present Illness Details: This is a 73-year old lady who presents to the office today for a cardiovascularfollow up visit. She has a history of hypertension, hyperlipidemia, carotid artery disease and shortness of breath. She complains of occasional palpitations and is worried about her cardiac condition. She did have an echocardiogram over 4 years ago which demonstrated preserved ejection fraction estimated at 64% and no wall motion abnormalities noted. A carotid ultrasound study demonstrated 60 to 79% stenosis noted in her right internal carotid arteryand 20 to 30% stenosis noted in the left internal carotid artery. Her echocardiogram from April demonstrated ejection fraction of 70%. She did undergo a coronary calcium score in July 2022 with a total score of 15. Patient presented to the emergency room on 03/02/2024 with complaints of chest pain. She underwent a stress test on 03/04/2024, which was abnormal. She underwent a cardiac catheterization on 03/04/2024 which demonstrated 50% stenosis in her proximal RCA, 95% stenosis in her mid RCA, 60% stenosis in her proximal LAD, and 40% stenosis in her proximal left circumflex. She did undergoa successful EZEKIEL mid RCA. Her echocardiogram on 03/05/2024 demonstrated ejection fraction of 60%. Patient was in the emergency room last week for chest discomfort. Troponins were negative. EKG demonstrated sinus rhythm with a heart rate of 64. She notesthat this was similar to what she had prior to her VT. She did take NTG. She feels that this did help. She has not had any since then. She does have some epigastric twinges. She does stay active. She has not had any problems. She does do jerri. 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 Accompanied by: Is patient in pain?: Yes (few times of midsternal chest pain since hosptital visit monday) Pain scale (1-10): 2 Allergies sulfabenzamide Allergy (Unknown, Verified 10/23/24 09:57) red mouth nizatidine (From Axid) Allergy (Verified 10/23/24 09:57) Hives Sulfa (Sulfonamide Antibiotics) Allergy (Verified 10/23/24 09:57) Rash, oral redness atorvastatin Adverse Reaction (Intermediate, Verified 10/23/24 09:57) Other duloxetine (From Cymbalta) Adverse Reaction (Intermediate, Verified 10/23/24 09:57) Other lisinopril Adverse Reaction (Intermediate, Verified 10/23/24 09:57) Other sibutramine (From Meridia) Adverse Reaction (Intermediate, Verified 10/23/24 09:57) Rash Medications ?Medication ?Instructions ?Recorded ?Confirmed ?Type trazodone 100 mg tablet 100 mg PO QHS insomnia 08/1710/23/24 History dicyclomine 10 mg capsule 10 mg PO 4X/DAY PRN abdomina l pain 03/28/22 10/23/24 History lorazepam 0.5 mg tablet 0.5 mg PO QHS PRN sleep 03/1510/23/24 History omeprazole 40 mg capsule,delayed 40 mg PO BID gut 03/1510/23/24 History release bupropion HCl 300 mg 24 hr tablet, 300 mg PO DAILY anx iety 04/11/22 10/23/24 History extended release cholecalciferol (vitamin D3) 50 4,000 unit PO DAILY nguyen pplement 04/11/22 10/23/24 History mcg (2,000 unit) tablet biotin 10,000 mcg capsule 5,000 mcg PO DAILY hair 10/1410/23/24 History cyanocobalamin (B12)-cobamamide 1 rob sublingual DAILY suppliment 11/06/23 10/23/24 History 5,000 mcg-100 mcg sublingual lozenge (B12) levothyroxine 75 mcg tablet 75 mcg PO DAILY thyroid 10/23/24 History aspirin 81 mg tablet,delayed 81 mg PO BREAKFAST #0 tab s 03/05/24 10/23/24 Rx release hydrochlorothiazide 25 mg tablet 25 mg PO DAILY #30 ta bs 03/05/24 10/23/24 Rx carvedilol 3.125 mg tablet 3.125 mg PO BID #180 tabs 1 06/04/23 10/23/24 Rx losartan 50 mg tablet 50 mg PO DAILY #90 tabs 03/1610/23/24 Rx pravastatin 40 mg tablet 40 mg PO QHS #90 tabs 10/23/24 Rx clopidogrel 75 mg tablet (Plavix) 75 mg PO QDAY #90 ta bs 07/29/24 10/23/24 Rx tramadol 50 mg tablet 50 mg PO QD-TID PRN pain 10/23/24 History nitroglycerin 0.4 mg sublingual 0.4 mg sublingual Q5-1 5M PRN chest 10/23/24 10/23/24 Rx tablet (Nitrostat) pain #25 tabs Ejection fraction %: 60 Have you fallen in the past year?: Yes (slipped on ice) [facility] Medical History Laryngitis CAD (coronary artery disease) Abnormal cardiovascular stress test Post-menopausal Alcohol use Thyroid disease Back pain Former smoker Leg cramps History of echocardiogram Cardiology follow-up encounter Carotid artery disease COVID-19 (~03/06/22) Obesity Psychophysiologic insomnia Anxiety Essential (primary) hypertension Trigger finger, left ring finger Vitamin D deficiency Esophageal reflux Hyperlipidemia IBS (irritable bowel syndrome) Diffuse cystic mastopathy Generalized osteoarthritis Diarrhea due to COVID-19 Hypothyroidism (acquired) Strain of right forearm Strain of right wrist Strain of right hand Spinal stenosis of lumbosacral region Depression H/O radioactive iodine thyroid ablation Surgical History Stented coronary artery (03/04/24) History of radiofrequency ablation (RFA) of nerve of lumbar spine History of selective injection of anesthetic agent around lumbar nerve root History of lumbar surgery (~08/2020) History of esophagogastroduodenoscopy (EGD) (~02/27/20) History of colonoscopy History of tonsillectomy and adenoidectomy Hx of cataract removal with insertion of prosthetic lens (~2015) H/O dilation and curettage Family History Mother Arthritis Myocardial infarction Father Diabetes Heart disease Sister Brain bleed Social History household members: spouse housing: house Smoking Status: Former smoker how long ago did patient quit smokin years ago alcohol intake: current alcohol intake frequency: a few times a week substance use type: does not use caffeine: Yes Type: coffee Number of servings: 1 what type of physical activity do you participate in: walking, bicycling and other details: Jerri do you feel safe at home: Yes ROS Const Const: Negative for fatigue or weakness Eyes Eyes: Negative for change in vision ENT ENT: Positive for balance problems (if turns wrong); Negative for dizziness Cardio Chest Pain: No Palpitations: No Edema: None Resp Respiratory: Negative for SOB with activity, SOB at rest or SOB orthopneaundefinedSOB lying down GI GI: Positive for heartburn; Negative nausea Musc Musc: Positive for balance problems (if turns wrong) Neuro Neuro: Negative for dizziness, lightheadedness, near syncope, syncope or weakness Endo Endo: Negative for fatigue Cardiology Exam Const Appearance: cooperative, healthy appearing, comfortable and no acute distress Nutritional Appearance: well nourished and overweight Orientation: alert, awake and oriented x3 Head Head: normal to inspection Ears: hearing grossly normal bilaterally Nose: external nose normal Face and Sinus: face symmetric Mouth: moist mucous membranes Eyes General: appearance normal, both eyes and all related structures Eyelids: eyelids normal EOM: EOM intact bilaterally Neck Neck: normal visual inspection and no JVD Carotids: normal carotid upstroke Chest Chest inspection: normal inspection of the chest, symmetric chest movement and normal respiratory effort; Negative cough Auscultation: Bilateral: Clear to Auscultation Cardio Rate: regular rate Rhythm: regular rhythm Heart sounds: S1 normal and S2 normal; Negative rub, gallop or murmur GI GI: normal to inspection Neuro General: patient alert, patient awake, patient oriented x3 and CN's II-XI intactbilaterally Skin Skin: no rashes or lesions noted Extremities Pulses: Normal: Right Posterior Tibial Pulse, Left Posterior Tibial Pulse, RightRadial Pulse and Left Radial Pulse Lower Extremity Edema: None: Bilateral Psych Psychological: normal affect Supplemental Info Supplemental Information Cardiac Catheterization 03/04/2024: CONCLUSIONS 50% Prox, 95% Mid RCA 60% Prox LAD 40% Prox LCX Successful EZEKIEL Mid RCA using [place] 3.0x22 mm RECOMMENDATIONS ASA Indefinitley P2Y12 inhibitors for atleast 6 months Risk factor modification Stress Test 03/04/2024: Impression: 1. Technically adequate exercise tolerance test. 82% maximal predicted heart rate achieved. 2. Peak exercise ECG suggestive of ischemia 3. There were no cardiac dysrhythmias pretest, during exercise, or recovery 4. Rest and stress SPECT Cardiolite nuclear imaging demonstrate mild reversibleperfusion defect of the inferior wall suggestive of ischemia. 5. The gated Cardiolite study reports an LVEF of 79%. Echocardiogram 03/05/2024: Interpretation Summary The left ventricular ejection fraction is 60 %. The left atrium is mildly enlarged. Moderate (2+) mitral valve insufficiency. Mild tricuspid valve insufficiency. Right ventricular systolic pressure estimated to be 36 mmHg. Echocardiogram 04/25/2022: Interpretation Summary Normal LV size. Left ventricular systolic function is normal. The estimated ejection fraction is 70 %. Mild (1+) eccentric mitral valve insufficiency. Coronary calcium score 07/27/2022 LM:0 LAD: 10.7 LCx: 0 RCA: 4.3 Other: 0 Total: 15 ECHOCARDIOGRAM PREVIOUS ECHO: 04/27/2018 @ [facility] CONCLUSIONS: - Exam indication: Hypertension - The left ventricle is normal in size. There is no left ventricular hypertrophy. Left ventricular systolic function is normal. EF = 64 ? 5% (2D biplane) Normal left ventricular diastolic function. - The right ventricle is normal in size. Right ventricular systolic function is normal. - There are no significant valvular abnormalities. CAROTID ARTERY DISEASE U/S: 02/24/2022 @ [facility] RIGHT: 60-79% LEFT: 20-39% Labs: LDL Cholesterol 120 mg/dL (0-130) HDL Cholesterol 69 mg/dL (40-) Cholesterol 204 mg/dL (200) H Triglycerides 75 mg/dL (-199) Diagnostics: Electrocardiogram Echocardiogram Stress Test Stress Test Nuclear Medicine Cardiac Catheterization Chest X-Ray Abdomen/Pelvis CT Pulmonary: No Data to Display Past Visits: Cardiology Visit 10/23/24 Assessment and Plan Assessment and Plan (1) Stented coronary artery: Status: Chronic Comment: [place] EZEKIEL 3.0 X 22 to mid RCA 03/04/2024 Plan: Patient has a history of coronary artery disease with stent placement to her midRCA on March 04, 2024. With her chest pain, would like to obtain a stress test. Will follow up closely. Sent Rx for NTG. (2) Essential (primary) hypertension: Status: Chronic Plan: Patient's blood pressure is well-controlled. We will continue to monitor. We will not make any medication regimen changes. (3) Hyperlipidemia: Status: Chronic Qualifiers: Hyperlipidemia type: mixed hyperlipidemia Qualified Code(s): E78.2 - Mixed hyperlipidemia Plan: This is being monitored with primary care provider she was minded of LDL goal of70 and below for secondary prevention. Her most recent lipid panel from 03/03/2024: Cholesterol 204, HDL 69, LDL 120, triglycerides 75. She will repeat these today. Did discuss adding Zetia or adding Repatha if LDL is not at goal. (4) Carotid artery disease: Status: Chronic Plan: Patient has a history of carotid artery disease. She does follow with a vascular surgeon in [place] for this. She will continue with her current medical therapy. Orders: Orders Nuclear Stress Test - Treadmil Today Z95.5 - Presence of coronary angioplasty implant and graft Liver Profile Today Z95.5 - Presence of coronary angioplasty implant and graft Lipid Profile Today E78.5 - Hyperlipidemia, unspecified, Z95.5 - Presence of coronary angioplasty implant and graft Medications: New nitroglycerin (Nitrostat) do not exceed 3 doses per episode 0.4 mg sublingual Q5-15M PRN 25 tabs 3RF chest pain Plan Details Additional Comments: Thank you for allowing us to participate in the patients plan of care, if you have any questions please do not hesitate to call. Plan was reviewed with patient/family member along with red flag symptoms. Understanding was acknowledged. Questions were answered to apparent satisfaction. This note was generated using a voice recognition system and there may be incorrect words, spelling or punctuation that were not noted when reviewing the office note prior to saving. Portions of this documentation were copied and pasted from previous office visitnotes to provide a cohesive continuity of the history. The note has been reviewed, edited, and updated, as necessary. Follow Up: 10/23/24 (keep as is ) Coding Level of Care Code Off vis,est,level 4 Diagnoses Stented coronary artery Z95.5 Essential (primary) hypertension I10 Mixed hyperlipidemia E78.2 Hyperlipidemia type: mixed hyperlipidemia Carotid artery disease I77.9 Coding Level of Care Code Off vis,est,level 4 Diagnoses Stented coronary artery Z95.5 Essential (primary) hypertension I10 Mixed hyperlipidemia E78.2 Hyperlipidemia type: mixed hyperlipidemia Carotid artery disease I77.9 Clinical Quality Measures Falls Risk Screening/Assistive Devices Have you fallen in the past year?: Yes (slipped on ice) Cardiac Ejection fraction %: 60 10/23/24 1029 <Electronically signed by Jewel Jurado> Date _ Jewel [facility] Signature: Date (if applicable) CC: Dr. Fiorella Hall MD ~ [facility] Work Phone: [phone]) 713-296606-06-2025 Radiology Diagnostic study note [facility] Imaging Services [address] [place], [place] [address] Chest PA and Lateral MR#: [id number] Acct: [id number] Name: AMINA TOBAR Rep #: [id number] : 1950 F 73 From: Adonay Holguin MD PCP: Dr. Fiorella Hall MD Status: RE G ER Study:Chest PA and Lateral Date of Exam: 10/18/24 Exam# [id number] Ordering Dr: Yudith Gore PROCEDURE: CHEST PA AND LATERAL 10/18/2024 REASON FOR EXAM: CHEST PAIN TECHNIQUE: Frontal and lateral views of the chest. COMPARISON: AP chest of 03/02/2024. RAD/Chest PA and Lateral IMPRESSION: Lungs appear clear throughout. No pleural effusion or pneumothorax is evident. The cardiomediastinal silhouette is within the normal range. Mild to moderate thoracic spine degenerative changes are noted. Generalized osteopenia is seen. No acute osseous change is identified. Reading Location: [address] CC: Dr. Fiorella Hall MD; ROXANA Carpio ~ Fuel Cell Test Engineer: Signed [facility]05-27-2025 Progress [facility] [address] [place] [address] [place] [address] OFFICE VISIT Date of Service: 10/08/24 MR#: [id number] Acct: [id number] Name: AMINA TOBAR Rep #: [id number] : 1950 Provider: ROXANA Becerra Age/Sex: 73/F Location: [facility] Status: Signed Intake Vital Signs 08/05/24 08:53 10/08/24 08:00 Height 5 ft 1 in Weight: 153 lb 6 oz BMI 29.0 BP 124/76 H Blood Pressure Location Lt brachial Position Sitting Respiration 14 Pulse 80 Pulse Source Auscultation Temp 97.5 F L Temp Source Oral Pulse Oximetry (%) 98 Intake Visit Reasons: SINUS COMPLAINT/X3 WKS Accompanied by: Self Allergies sulfabenzamide Allergy (Unknown, Verified 10/08/24 07:58) red mouth nizatidine (From Axid) Allergy (Verified 10/08/24 07:58) Hives Sulfa (Sulfonamide Antibiotics) Allergy (Verified 10/08/24 07:58) Rash, oral redness atorvastatin Adverse Reaction (Intermediate, Verified 10/08/24 07:58) Other duloxetine (From Cymbalta) Adverse Reaction (Intermediate, Verified 10/08/24 07:58) Other lisinopril Adverse Reaction (Intermediate, Verified 10/08/24 07:58) Other sibutramine (From Meridia) Adverse Reaction (Intermediate, Verified 10/08/24 07:58) Rash Medications ?Medication ?Instructions ?Recorded ?Confirmed ?Type trazodone 100 mg tablet 100 mg PO QHS insomnia 08/1710/08/24 History dicyclomine 10 mg capsule 10 mg PO 4X/DAY PRN abdomina l pain 03/28/22 10/08/24 History lorazepam 0.5 mg tablet 0.5 mg PO QHS PRN sleep 03/1510/08/24 History omeprazole 40 mg capsule,delayed 40 mg PO BID gut 03/1510/08/24 History release bupropion HCl 300 mg 24 hr tablet, 300 mg PO DAILY anx iety 04/11/22 10/08/24 History extended release cholecalciferol (vitamin D3) 50 4,000 unit PO DAILY nguyen pplement 04/11/22 10/08/24 History mcg (2,000 unit) tablet biotin 10,000 mcg capsule 5,000 mcg PO DAILY hair 10/1410/08/24 History cyanocobalamin (B12)-cobamamide 1 rob sublingual DAILY suppliment 11/06/23 10/08/24 History 5,000 mcg-100 mcg sublingual lozenge (B12) levothyroxine 75 mcg tablet 75 mcg PO DAILY thyroid 10/08/24 History meloxicam 15 mg tablet 15 mg PO DAILY inflimmation 03/02/24 10/08/24 History Held on 03/05/24. Instructions: Would recommend discontinuing this while you are on aspirin and Plavix due to increased risk of bleeding. Would avoid all NSAIDs aspirin 81 mg tablet,delayed 81 mg PO BREAKFAST #0 tab s 03/05/24 10/08/24 Rx release hydrochlorothiazide 25 mg tablet 25 mg PO DAILY #30 ta bs 03/05/24 10/08/24 Rx carvedilol 3.125 mg tablet 3.125 mg PO BID #180 tabs 1 06/04/23 10/08/24 Rx losartan 50 mg tablet 50 mg PO DAILY #90 tabs 03/1610/08/24 Rx pravastatin 40 mg tablet 40 mg PO QHS #90 tabs 10/08/24 Rx clopidogrel 75 mg tablet (Plavix) 75 mg PO QDAY #90 ta bs 07/29/24 10/08/24 Rx amoxicillin 875 mg tablet 875 mg PO BID #20 tabs 10/0810/08/24 Rx Have you fallen in the past year?: No Nurse's Note: Patient has sinus complaint for 3 weeks. Patient states she can't kick it. Patient has sinus pressure and pain and lots of drainage she states. [facility] Medical History Laryngitis CAD (coronary artery disease) Abnormal cardiovascular stress test Post-menopausal Alcohol use Thyroid disease Back pain Former smoker Leg cramps History of echocardiogram Cardiology follow-up encounter Carotid artery disease COVID-19 (~03/06/22) Obesity Psychophysiologic insomnia Anxiety Essential (primary) hypertension Trigger finger, left ring finger Vitamin D deficiency Esophageal reflux Hyperlipidemia IBS (irritable bowel syndrome) Diffuse cystic mastopathy Generalized osteoarthritis Diarrhea due to COVID-19 Hypothyroidism (acquired) Strain of right forearm Strain of right wrist Strain of right hand Spinal stenosis of lumbosacral region Depression H/O radioactive iodine thyroid ablation Surgical History Stented coronary artery (03/04/24) History of radiofrequency ablation (RFA) of nerve of lumbar spine History of selective injection of anesthetic agent around lumbar nerve root History of lumbar surgery (~08/2020) History of esophagogastroduodenoscopy (EGD) (~02/27/20) History of colonoscopy History of tonsillectomy and adenoidectomy Hx of cataract removal with insertion of prosthetic lens (~2015) H/O dilation and curettage Family History Mother Arthritis Myocardial infarction Father Diabetes Heart disease Sister Brain bleed Social History household members: spouse housing: house Smoking Status: Former smoker how long ago did patient quit smokin years ago alcohol intake: current alcohol intake frequency: a few times a week substance use type: does not use caffeine: Yes Type: coffee Number of servings: 1 what type of physical activity do you participate in: walking, bicycling and other details: Jerri do you feel safe at home: Yes HPI HPI Details: AMINA TOBAR, is a 73 F who presents to the office today [facility] for approximately 3-week history of progressively worsening nasal bridge and facial pressure/congestion with purulent postnasal drip/cough. No complaints of fever, chills, myalgias, fatigue, runny nose, or nausea/vomiting/diarrhea. No complaints of chest pain/shortness of breath/dyspnea on exertion. with similar complaints. Non-smoker. No other associated symptoms and no other alleviating/aggravating factors. ROS Const Constitutional: No other (as above) Exam Const General: cooperative, healthy appearing and no acute distress Nutritional Appearance: average body habitus Orientation: alert, awake and oriented x3 HENMT Head: normal to inspection Ears: hearing grossly normal bilaterally, external ears normal, TM's normal bilaterally and EAC's normal Nose: external nose normal, nares normal, septum normal and no nasal discharge Face and sinus: normal facial exam, bilateral maxillary sinuses nontender (Though bilateral maxillary fullness to palpation) and face symmetric Mouth: oral mucosae normal, lip normal, tongue normal and oropharynx normal Throat: posterior oropharynx normal, tonsils normal, uvula midline and postnasal drainage (Purulent) Eyes General: appearance normal, both eyes and all related structures Neck Neck: normal visual inspection, full ROM, no meningeal signs, supple and lymphadenopathy (Bilateralanterior cervical lymph node swelling/trace tender topalpation) Neck mass: No Thyroid: thyroid normal Chest Chest palpation & inspection: normal inspection of the chest Resp Effort & Inspection: normal respiratory effort and able to speak in complete sentences Auscultation: Bilateral: Clear to Auscultation Cardio Palpation: normal PMI Rate: regular rate Rhythm: regular rhythm Heart Sounds: S1 normal, S2 normal, no gallops, no murmurs and no rubs Pulses: radial pulses present GI Inspection: normal to inspection Skin General: no rashes or lesions noted Neuro General: patient alert, patient awake and patient oriented x3 Cognition: normal cognition Speech: speech normal Psych Appearance: grossly normal Mental Status: mental status grossly normal Mood: congruent mood Affect: normal affect Speech and Movement: speech and movement normal Attitude: cooperative Diagnoses Acute maxillary sinusitis, unspecified J01.00 Assessment and Plan Assessment and Plan (1) Acute maxillary sinusitis, unspecified: Status: Acute Plan: Amoxicillin as prescribed today. Supportive measures as instructed today. Follow-up with PCP in 3 to 5 days should symptoms not improve, sooner should symptoms worsen or anyother concerns develop. Patient states acknowledging understanding all the above. Coding Level of Care Code Off vis,est,level 3 Assessment and Plan Assessment and Plan Medications: New amoxicillin 875 mg PO BID 20 tabs 0RF Clinical Quality Measures Falls Risk Screening/Assistive Devices Have you fallen in the past year?: No 10/08/24 0810 s ROXANA PA> Date _ Narendra SCHMIDT Cosigner Signature: Date (if applicable) CC: ~ [facility]05-27-2025 Progress note Author [facility] Note Date/Time October 08, 2024 8:10a m [facility] [address] , [address] [place] [address] OFFICE VISIT Date of Service: 10/08/24 MR#: [id number] Acct: [id number] Name: AMINA TOBAR Rep #: [id number] : 1950 Provider: ROXANA Becerra Age/Sex: 73/F Location: [facility] Status: Signed Intake Vital Signs 08/05/24 08:53 10/08/24 08:00 Height 5 ft 1 in Weight: 153 lb 6 oz BMI 29.0 BP 124/76 H Blood Pressure Location Lt brachial Position Sitting Respiration 14 Pulse 80 Pulse Source Auscultation Temp 97.5 F L Temp Source Oral Pulse Oximetry (%) 98 Intake Visit Reasons: SINUS COMPLAINT/X3 WKS Accompanied by: Self Allergies sulfabenzamide Allergy (Unknown, Verified 10/08/24 07:58) red mouth nizatidine (From Axid) Allergy (Verified 10/08/24 07:58) Hives Sulfa (Sulfonamide Antibiotics) Allergy (Verified 10/08/24 07:58) Rash, oral redness atorvastatin Adverse Reaction (Intermediate, Verified 10/08/24 07:58) Other duloxetine (From Cymbalta) Adverse Reaction (Intermediate, Verified 10/08/24 07:58) Other lisinopril Adverse Reaction (Intermediate, Verified 10/08/24 07:58) Other sibutramine (From Meridia) Adverse Reaction (Intermediate, Verified 10/08/24 07:58) Rash Medications ?Medication ?Instructions ?Recorded ?Confirmed ?Type trazodone 100 mg tablet 100 mg PO QHS insomnia 08/1710/08/24 History dicyclomine 10 mg capsule 10 mg PO 4X/DAY PRN abdomina l pain 03/28/22 10/08/24 History lorazepam 0.5 mg tablet 0.5 mg PO QHS PRN sleep 03/1510/08/24 History omeprazole 40 mg capsule,delayed 40 mg PO BID gut 03/1510/08/24 History release bupropion HCl 300 mg 24 hr tablet, 300 mg PO DAILY anx iety 04/11/22 10/08/24 History extended release cholecalciferol (vitamin D3) 50 4,000 unit PO DAILY nguyen pplement 04/11/22 10/08/24 History mcg (2,000 unit) tablet biotin 10,000 mcg capsule 5,000 mcg PO DAILY hair 10/1410/08/24 History cyanocobalamin (B12)-cobamamide 1 rob sublingual DAILY suppliment 11/06/23 10/08/24 History 5,000 mcg-100 mcg sublingual lozenge (B12) levothyroxine 75 mcg tablet 75 mcg PO DAILY thyroid 10/08/24 History meloxicam 15 mg tablet 15 mg PO DAILY inflimmation 03/02/24 10/08/24 History Held on 03/05/24. Instructions: Would recommend discontinuing this while you are on aspirin and Plavix due to increased risk of bleeding. Would avoid all NSAIDs aspirin 81 mg tablet,delayed 81 mg PO BREAKFAST #0 tab s 03/05/24 10/08/24 Rx release hydrochlorothiazide 25 mg tablet 25 mg PO DAILY #30 ta bs 03/05/24 10/08/24 Rx carvedilol 3.125 mg tablet 3.125 mg PO BID #180 tabs 1 06/04/23 10/08/24 Rx losartan 50 mg tablet 50 mg PO DAILY #90 tabs 03/1610/08/24 Rx pravastatin 40 mg tablet 40 mg PO QHS #90 tabs 10/08/24 Rx clopidogrel 75 mg tablet (Plavix) 75 mg PO QDAY #90 ta bs 07/29/24 10/08/24 Rx amoxicillin 875 mg tablet 875 mg PO BID #20 tabs 10/0810/08/24 Rx Have you fallen in the past year?: No Nurse's Note: Patient has sinus complaint for 3 weeks. Patient states she can't kick it. Patient has sinus pressure and pain and lots of drainage she states. [facility] Medical History Laryngitis CAD (coronary artery disease) Abnormal cardiovascular stress test Post-menopausal Alcohol use Thyroid disease Back pain Former smoker Leg cramps History of echocardiogram Cardiology follow-up encounter Carotid artery disease COVID-19 (~03/06/22) Obesity Psychophysiologic insomnia Anxiety Essential (primary) hypertension Trigger finger, left ring finger Vitamin D deficiency Esophageal reflux Hyperlipidemia IBS (irritable bowel syndrome) Diffuse cystic mastopathy Generalized osteoarthritis Diarrhea due to COVID-19 Hypothyroidism (acquired) Strain of right forearm Strain of right wrist Strain of right hand Spinal stenosis of lumbosacral region Depression H/O radioactive iodine thyroid ablation Surgical History Stented coronary artery (03/04/24) History of radiofrequency ablation (RFA) of nerve of lumbar spine History of selective injection of anesthetic agent around lumbar nerve root History of lumbar surgery (~08/2020) History of esophagogastroduodenoscopy (EGD) (~02/27/20) History of colonoscopy History of tonsillectomy and adenoidectomy Hx of cataract removal with insertion of prosthetic lens (~2015) H/O dilation and curettage Family History Mother Arthritis Myocardial infarction Father Diabetes Heart disease Sister Brain bleed Social History household members: spouse housing: house Smoking Status: Former smoker how long ago did patient quit smokin years ago alcohol intake: current alcohol intake frequency: a few times a week substance use type: does not use caffeine: Yes Type: coffee Number of servings: 1 what type of physical activity do you participate in: walking, bicycling and other details: Jerri do you feel safe at home: Yes HPI HPI Details: AMINA TOBAR, is a 73 F who presents to the office today for [facility] for approximately 3-week history of progressively worsening nasal bridge and facial pressure/congestion with purulent postnasal drip/cough. No complaints of fever, chills, myalgias, fatigue, runny nose, or nausea/vomiting/diarrhea. No complaints of chest pain/shortness of breath/dyspnea on exertion. with similar complaints. Non-smoker. No other associated symptoms and no other alleviating/aggravating factors. ROS Const Constitutional: No other (as above) Exam Const General: cooperative, healthy appearing and no acute distress Nutritional Appearance: average body habitus Orientation: alert, awake and oriented x3 [facility] Head: normal to inspection Ears: hearing grossly normal bilaterally, external ears normal, TM's normal bilaterally and EAC's normal Nose: external nose normal, nares normal, septum normal and no nasal discharge Face and sinus: normal facial exam, bilateral maxillary sinuses nontender (Though bilateral maxillary fullness to palpation) and face symmetric Mouth: oral mucosae normal, lip normal, tongue normal and oropharynx normal Throat: posterior oropharynx normal, tonsils normal, uvula midline and postnasal drainage (Purulent) Eyes General: appearance normal, both eyes and all related structures Neck Neck: normal visual inspection, full ROM, no meningeal signs, supple and lymphadenopathy (Bilateral anterior cervical lymph node swelling/trace tender topalpation) Neck mass: No Thyroid: thyroid normal Chest Chest palpation & inspection: normal inspection of the chest Resp Effort & Inspection: normal respiratory effort and able to speak in complete sentences Auscultation: Bilateral: Clear to Auscultation Cardio Palpation: normal PMI Rate: regular rate Rhythm: regular rhythm Heart Sounds: S1 normal, S2 normal, no gallops, no murmurs and no rubs Pulses: radial pulses present GI Inspection: normal to inspection Skin General: no rashes or lesions noted Neuro General: patient alert, patient awake and patient oriented x3 Cognition: normal cognition Speech: speech normal Psych Appearance: grossly normal Mental Status: mental status grossly normal Mood: congruent mood Affect: normal affect Speech and Movement: speech and movement normal Attitude: cooperative Diagnoses Acute maxillary sinusitis, unspecified J01.00 Assessment and Plan Assessment and Plan (1) Acute maxillary sinusitis, unspecified: Status: Acute Plan: Amoxicillin as prescribed today. Supportive measures as instructed today. Follow-up with PCP in 3 to 5 days should symptoms not improve, sooner should symptoms worsen or any other concerns develop. Patient states acknowledging understanding all the above. Coding Level of Care Code Off vis,est,level 3 Assessment and Plan Assessment and Plan Medications: New amoxicillin 875 mg PO BID 20 tabs 0RF Clinical Quality Measures Falls Risk Screening/Assistive Devices Have you fallen in the past year?: No 10/08/24 0838 <Electronically signed by Narendra SCHMIDT> Date _ Narendra Pereira Signature: Date (if applicable) CC: ~ [facility] Work Phone: [phone] Instructions* Patient Instructions* Fiorella Hall MD - 08/09/2024 9:56 AM EDT - Take medications as prescribed, including: - Plavix (Clopidogrel) daily. - Aspirin daily. - Carvedilol daily. - Losartan daily. - Pravastatin daily. - Wellbutrin as prescribed. - Omeprazole daily. - Hydrochlorothiazide (HCTZ) half a tablet daily. - Trazodone as prescribed. - Tramadol as needed for pain. - Lorazepam as needed for anxiety or sleep; refill sent to [facility] pharmacy. - Increase calcium intake to 1,200-1,500 mg daily through diet or supplements to address brittle nails. - Follow up with your picker box operator, Dr. Quiñonez, as scheduled. - Follow up with Dr. Gaffney next week to discuss MRI and potential treatment options for back pain. - Complete MRI as scheduled to evaluate back pain. - Follow up with relocation specialist to review x-rays and discuss treatment options for foot and ankle pain. - Monitor for any new or worsening symptoms and report them to your healthcare provider. [facility] NoteHNO ID: [id number] Author: FIORELLA HALL MD Service: ? Author Type: Physician Type: Progress Notes Filed: 08/16/2024 01:41 Note Text: This note was created using [employer]. Subjective Amina Tobar is a 73 year old female. Patient presents with: Recheck: 6 month routine SUBJECTIVE: Amina Tobar is a 73 year old year old lady here today for 6 month follow up appointment for review of medical conditions. Amy is a 73-year-old female with a history of CAD, presenting for a 6-month follow-up. Amy reports experiencing significant pain in her legs and feet, which she attributes to the initiation of pravastatin following the placement of a coronary stent. She notes that the pain is most severe in the morning after taking the medication at night, making it difficult for her to walk. She has tried various types of shoes and has consulted a registered nurse midwife, who did not find any abnormalities on x-rays. She also reports wearing braces on her ankles due to pain and has been diagnosed with a bone spur and inflammation by [facility]. She is currently taking tramadol and Tylenol Arthritis for pain management. Amy also reports experiencing headaches and nausea since starting Plavix, which was prescribed after she experienced significant bruising with Brilinta. She is also taking aspirin, carvedilol, losartan, omeprazole, trazodone, and Wellbutrin. She reports that her nails have become brittle and are peeling, and she is unsure if she is getting enough calcium in her diet. She denies taking calcium supplements. Amy has a history of coronary artery disease and had a stent placed for a 95% blockage in the mid-RCA. She also has a 60% blockage in another artery that is being monitored. She reports experiencing classic symptoms of angina, including pain in her neck, jaw, and ear, which led to the discovery of the blockage. She has a family history of heart disease, with her father dying of a heart attack at age 74. She is currently following up with her picker box operator, Dr. Quiñonez, and is due for a lipid panel. Amy also has a history of back pain and has had back surgery in the past. She reports that her back pain has been worsening and is awaiting an MRI before she can see a surgeon. She has been told that she would benefit from a cortisone injection, but is unable to receive one due to her blood thinner medication. She is currently taking Plavix and reports experiencing headaches and nausea since starting the medication. She also reports feeling melancholy and attributes it to the winter weather and her health issues. She is taking Wellbutrin for depression and has lorazepam on hand for occasional use. PAST MEDICAL HISTORY Diagnosis Date Allergic rhinitis, [...] Unspecified hypothyroidism Current Outpatient Medications Medication Sig clopidogrel (PLAVIX) 75 mg tablet Take 75 mg by mouth once daily. traZODone (DESYREL) 100 mg tablet Take 1 tablet by mouth daily at bedtime. As directed carvedilol (COREG) 3.125 mg tablet Take 3.125 mg by mouth two times a day with meals. losartan (COZAAR) 50 mg tablet Take 50 mg by mouth once daily. pravastatin (PRAVACHOL) 40 mg tablet Take 40 mg by mouth daily at bedtime. levothyroxine (SYNTHROID) 75 mcg tablet Take 1 tablet by mouth once daily. cyclobenzaprine (FLEXERIL) 10 mg tablet Take 1 tablet by mouth at bedtime as needed for muscle spasm. hydroCHLOROthiazide 50 mg tablet Take 1 tablet by mouth once daily. (Patient taking differently: Take 25 mg by mouth once daily.) dicyclomine (BENTYL) 10 mg capsule Take 1 [...] by mouth twice daily before meals (0600/1600). buPROPion XL (WELLBUTRIN XL) 300 mg 24 hr tablet Take 1 tablet by mouth once daily. ondansetron orally disintegrating (ZOFRAN ODT) 4 mg disintegrating tablet Take 1 tablet by mouth every 6 hours as needed for nausea/vomiting. vit B complex no.12/niacin,B3, (VITAMIN B COMPLEX NO.12-NIACIN ORAL) Take 1 (more content not included)...[facility]03-28-2025 History of Present illness Narrative* Fiorella Hall MD - 08/09/2024 9:24 AM EDT This note was created using [employer]. Subjective Amina Tobar is a 73 year old female. Patient presents with: Recheck: 6 month routine SUBJECTIVE: Amina Tobar is a 73 year old year old lady here today for 6 month follow up appointment for review of medical conditions. Amy is a 73-year-old female with a history of CAD, presenting for a 6-month follow-up. Amy reports experiencing significant pain in her legs and feet, which she attributes to the initiation of pravastatin following the placement of a coronary stent. She notes that the pain is most severe in the morning after taking the medication at night, making it difficult for her to walk. She has tried various types of shoes and has consulted a registered nurse midwife, who did not find any abnormalities on x-rays. She also reports wearing braces on her ankles due to pain and has been diagnosed with a bonespur and inflammation by [facility]. She is currently taking tramadol and Tylenol Arthritis for pain management. Amy also reports experiencing headaches and nausea since starting Plavix, which was prescribed after she experienced significant bruising with Brilinta. She is also taking aspirin, carvedilol, losartan, omeprazole, trazodone, and Wellbutrin. She reports that her nails have become brittle and are peeling, and she is unsure if she is getting enough calcium in her diet. She denies taking calcium supplements. Amy has a history of coronary artery disease and had a stent placed for a 95% blockage in the mid-RCA. She also has a 60% blockage in another artery that is being monitored. She reports experiencing classic symptoms of angina, including pain in her neck, jaw, and ear, which led to the discovery of the blockage. She has a family history of heart disease, with her father dying of a heart attack at age 74. She is currently following up with her picker box operator, Dr. Quiñonez, and is due for a lipid panel. Amy also has a history of back pain and has had back surgery in the past. She reports that her backpain has been worsening and is awaiting an MRI before she can see a surgeon. She has been told thatjerricae would benefit from a cortisone injection, but is unable to receive one due to her blood thinnermedication. She is currently taking Plavix and reports experiencing headaches and nausea since starting the medication. She also reports feeling melancholy and attributes it to the winter weather and her health issues. She is taking Wellbutrin for depression and has lorazepam on hand for occasional use. PAST MEDICAL HISTORY Diagnosis Date Allergic rhinitis, [...] Unspecified hypothyroidism Current Outpatient Medications Medication Sig clopidogrel (PLAVIX) 75 mg tablet Take 75 mg by mouth once daily. traZODone (DESYREL) 100 mg tablet Take 1 tablet by mouth daily at bedtime. As directed carvedilol (COREG) 3.125 mg tablet Take 3.125 mg by mouth two times a day with meals. losartan (COZAAR) 50 mg tablet Take 50 mg by mouth once daily. pravastatin (PRAVACHOL) 40 mg tablet Take 40 mg by mouth daily at bedtime. levothyroxine (SYNTHROID) 75 mcg tablet Take 1 tablet by mouth once daily. cyclobenzaprine (FLEXERIL) 10 mg tablet Take 1 tablet by mouth at bedtime as needed for muscle spasm. hydroCHLOROthiazide 50 mg tablet Take 1 tablet by mouth once daily. (Patient taking differently: Take 25 mg by mouth once daily.) dicyclomine (BENTYL) 10 mg capsule Take 1 [...] by mouth twice daily before meals (0600/1600). buPROPion XL (WELLBUTRIN XL) 300 mg 24 [...] D3 (VITAMIN D-3 ORAL) Take by mouth. LORazepam (ATIVAN) 0.5 mg Take 1 at bedtime as needed No current facility-administered medications for this visit. Review of Systems Objective BP 128/66 Pulse 61 Resp 16 Wt 68.9 kg (151 lb 14.4 oz) SpO2 98% BMI 29.67 kg/m Physical Exam Constitutional: Appearance: Normal appearance. HENT: Head: Normocephalic. Eyes: Conjunctiva/sclera: Conjunctivae normal. Cardiovascular: Rate and Rhythm: Normal rate and regular rhythm. Heart sounds: Normal heart sounds. Pulmonary: Effort: Pulmonary effort is normal. Breath sounds: Normal breath sounds. Musculoskeletal: Right lower leg: No edema. Left lower leg: No edema. Skin: General: Skin is warm and dry. Neurological: General: No focal deficit present. Mental Status: She is alert and oriented to person, place, and time. Psychiatric: Mood and Affect: Mood normal. Behavior: Behavior normal. Thought Content: Thought content normal. Judgment: Judgment normal. Latest Ref Rng 08/03/2023 02/02/2024 08/07/2024 Protein, Total 6.3 - 8.0 g/dL 6.5 6.2 (L) 6.3 Albumin 3.9 - 4.9 g/dL 4.1 4.0 4.0 Calcium 8.5 - 10.2 mg/dL 9.2 9.2 9.3 Bilirubin, Total 0.2 - 1.3 mg/dL 0.3 0.4 0.3 Alkaline Phosphatase 34 - 123 U/L 64 55 55 AST 13 - 35 U/L 14 20 16 ALT 7 - 38 U/L 11 12 9 Glucose 74 - 99 mg/dL 102 (H) 121 (H) 108 (H) BUN 7 - 21 mg/dL 10 10 15 Creatinine 0.58 - 0.96 mg/dL 0.80 0.84 0.82 Sodium 136 - 144 mmol/L 139 137 137 Potassium 3.7 - 5.1 mmol/L 4.0 3.7 4.3 Chloride 98 - 107 mmol/L 104 104 102 CO2 22 - 30 mmol/L 28 21 (L) 28 Anion Gap 8 - 15 mmol/L 7 (L) 12 7 (L) eGFR >=60 mL/min/1.73m 78 73 75 WBC 3.70 - 11.00 k/uL 7.19 4.82 5.02 RBC 3.90 - 5.20 m/uL 4.45 4.32 3.91 Hemoglobin 11.5 - 15.5 g/dL 13.9 13.5 12.3 Hematocrit 36.0 - 46.0 % 40.7 39.0 36.5 MCV 80.0 - 100.0 fL 91.5 90.3 93.4 MCH 26.0 - 34.0 pg 31.2 31.3 31.5 MCHC 30.5 - 36.0 g/dL 34.2 34.6 33.7 RDW-CV 11.5 - 15.0 % 13.1 12.5 12.7 Platelet Count 150 - 400 k/uL 243 267 234 MPV 9.0 - 12.7 fL 9.4 9.4 9.5 Absolute nRBC <0.01 k/uL <0.01 <0.01 <0.01 TSH 0.270 - 4.200 mIU/L 2.000 6.800 (H) 0.699 Free T4 0.9 - 1.7 ng/dL 1.4 1.3 1.5 Free T3 2.3 - 4.1 pg/mL 2.5 2.6 3.0 Magnesium 1.7 - 2.3 mg/dL 1.7 1.6 (L) 1.8 Vitamin D 25 Hydroxy 31.0 - 80.0 ng/mL 27.0 (L) 35.7 39.3 Legend: (H) High (L) Low Assessment and Plan # Hyperlipemia, mixed (E78.2) - Ordered lipid panel every 6 months as a standing order. - Continue current management with pravastatin. # IFG (impaired fasting glucose) (R73.01) - Glucose levels have improved from 120 mg/dL to 105 mg/dL. - Ordered HbA1c every 6 months as a standing order. # Anxiety, generalized (F41.1) - Continue Wellbutrin as prescribed. - Refilled lorazepam 30 tablets for prn use. # Chronic pain of right ankle (M25.571) # Heel pain, chronic, right (M79.671) # Calcaneal spur of right foot (M77.31) - Recent x-ray showed inflammation and a calcaneal spur. - Discussed potential non-displaced fracture of the distal fibula. - Referred to podiatry for further evaluation and management. - Continue current use of tramadol and Tylenol for pain management. # Essential (primary) hypertension (I10) - Continue current management with losartan and hydrochlorothiazide. - Refilled hydrochlorothiazide prescription. # Vitamin D deficiency (E55.9) - Vitamin D levels have improved to 39.3 ng/mL. - Continue current supplementation with Vitamin D3. # Acquired hypothyroidism (E03.9) - Thyroid function tests are within normal range. - Continue current dosage of levothyroxine 175 mcg daily. # Coronary artery disease involving kake coronary artery of kake heart without angina pectoris (I25.10) - Recent stent placement in mid-RCA; continue current management with Plavix and aspirin. - Discussed potential side effects of Plavix, including headaches. - Follow-up with cardiology in January. Fiorella Hall MD [facility] Evaluation note* Diagnosis Onset Date Resolution Status Admit Date Carotid artery disease chronic [facility] 2024 8:45am Essential (primary) hypertension chronic July 25, 2024 8:45am Hyperlipidemia chronic July 8:45am 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, 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, 2024 8:45am Low back pain acute August 05, 2024 8:47am Right ankle pain acute August 052024 8:47am Degenerative disc disease, lumbar acute August 16, 2024 10:44am Lumbar stenosis without neurogenic claudication acute August 10:44am Spondylolisthesis at L4-L5 level acute August 16, 2024 10:44am [facility] Work Phone: [phone] 844-457803-13-2025 Evaluation note* Diagnosis Onset Date Resolution Status Admit Date Carotid artery disease chronic [facility] 2024 8:45am Essential (primary) hypertension chronic July 25, 2024 8:45am Hyperlipidemia chronic July 8:45am 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, 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, 2024 8:45am Low back pain acute August 05, 2024 8:47am Right ankle pain acute August 052024 8:47am Degenerative disc disease, lumbar acute August 16, 2024 10:44am Lumbar stenosis without neurogenic claudication acute August 10:44am Spondylolisthesis at L4-L5 level acute August 16, 2024 10:44am History of lumbar laminectomy acute October 10, 2024 8:12am Lumbar scoliosis acute September 8:12am Osteopenia determined by x-ray acute October 10, 2024 8:12am Spinal stenosis of lumbar region with neurogenic claudication acute October 10, 2024 8:12am Spondylolisthesis, lumbar region acute October 10, 2024 8:12am [facility] Work Phone: [phone]) 500-576503-13-2025 Evaluation note* Diagnosis Onset Date Resolution Status Admit Date Carotid artery disease chronic [facility] 2024 8:45am Essential (primary) hypertension chronic July 25, 2024 8:45am Hyperlipidemia chronic July 8:45am 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, 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, 2024 8:45am Low back pain acute August 05, 2024 8:47am Right ankle pain acute August 052024 8:47am Degenerative disc disease, lumbar acute August 16, 2024 10:44am Lumbar stenosis without neurogenic claudication acute August 10:44am Spondylolisthesis at L4-L5 level acute August 16, 2024 10:44am History of lumbar laminectomy acute October 10, 2024 8:12am Lumbar scoliosis acute September 8:12am Osteopenia determined by x-ray acute October 10, 2024 8:12am Spinal stenosis of lumbar region with neurogenic claudication acute October 10, 2024 8:12am Spondylolisthesis, lumbar region acute October 10, 2024 8:12am Carotid artery disease chronic Ju 2024 9:49am Essential (primary) hypertension chronic October 23, 2024 9:49am Hyperlipidemia chronic October 23, 2024 9:49am 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 FALL SCREENING: Has the patient had 2 falls in the last year or 1 fall with injury or currently using an Ambulatory Assistive Device (Walker, Cane, Wheelchair, Crutches, etc.)? No PATIENT GENDER DATA: Assigned female at . status: : No status:NO. PATIENT RELEVANT IMPLANT DATA REVIEWED: Not Applicable PATIENT PRESENTS WITH AN IMPLANTABLE OR ATTACHED MOTION PICTURE PROJECTIONIST APPRENTICE: No RADIOLOGY DEPARTMENT: Mammography PERIPHERAL IV DATA: Not applicable SIGNED BY: TRUNG Lima) May 28, 2024 8:19 AM documented in this encounterMer[facility]01-14-2025 NoteHNO ID: [id number] Author: ALFREDA JOHNSON RT(Francie) Service: ? Author Type: Technologist Type: Progress Notes Filed: 05/28/2024 08:20 Note Text: Radiology Service Progress Note PATIENT NAME: Amina Tobar DATE OF SERVICE: May 28, 2024 TIME: 8:19 AM PATIENT IDENTITY VERIFICATION COMPLETED USING TWO (2) IDENTIFIERS: Name and Date of confirmed by patient verbally. FALL SCREENING: Has the patient had 2 falls in the last year or 1 fall with injury or currently using an Ambulatory Assistive Device (Walker, Cane, Wheelchair, Crutches, etc.)? No PATIENT GENDER DATA: Assigned female at . status: : No status: NO. PATIENT RELEVANT IMPLANT DATA REVIEWED: Not Applicable PATIENT PRESENTS WITH AN IMPLANTABLE OR ATTACHED MOTION PICTURE PROJECTIONIST APPRENTICE: No RADIOLOGY DEPARTMENT: Mammography PERIPHERAL IV DATA: Not applicable SIGNED BY: RT Clarence(R) May 28, 2024 8:19 [facility]01-06-2025 Telephone encounter Note* Telephone Encounter - Ashley Mack RN - 05/20/2024 10:53 AM EST Patient calls and states that she needs a refill for trazodone. Patient also need order for mammogram with kike to be placed. Previous order had . The patient has been identified by name and date of : Yes Caregiver verified no other encounters exist for this prescription request: Yes Caregiver confirmed with patient/requestor that no other refills are due, in the near future, with this provider at this time: Yes The last office visit in the department: 03/15/2024 Does the patient have a future office visit with this provider/department: Yes 08/09/2024 Requested Prescriptions Pending Prescriptions Disp Refills traZODone (DESYREL) 100 mg tablet 90 tablet 3 Sig: Take 1 tablet by mouth daily at bedtime. As directed Ashley Mack RN May 20, 2024 10:55 AM [facility]01-06-[facility] Miscellaneous Notes* Telephone Encounter - Ahsley Mack RN - 05/20/2024 10:53 AM EST Patient calls and states that she needs a refill for trazodone. Patient also need order for mammogram with kike to be placed. Previous order had . The patient has been identified by name and date of : Yes Caregiver verified no other encounters exist for this prescription request: Yes Caregiver confirmed with patient/requestor that no other refills are due, in the near future, with this provider at this time: Yes The last office visit in the department: 03/15/2024 Does the patient have a future office visit with this provider/department: Yes 08/09/2024 Requested Prescriptions Pending Prescriptions Disp Refills traZODone (DESYREL) 100 mg tablet 90 tablet 3 Sig: Take 1 tablet by mouth daily at bedtime. As directed Ashley Mack RN May 20, 2024 10:55 AM documented in this encounterMercy [facility] Hospital11-19-2024 NoteHNO ID: [id number] Author: ANNEMARIE WESTBROOK, DO Service: ? Author Type: Physician Type: Progress Notes Filed: 05/01/2024 13:36 Note Text: [facility] [place] DEPARTMENT OF VASCULAR SURGERY OUTPATIENT VISIT DATE April 02, 2024 OUTPATIENT VISIT TYPE ESTABLISHED SERVICE DATE: 04/02/2024 SERVICE TIME: 11:08 AM PRIMARY CARE PHYSICIAN: Fiorella Hall MD HISTORY OF PRESENT ILLNESS: Ms. Tobar is a 73 year old female who presents today for a vascular surgery follow-up visit after carotid duplex. She is in cardiac rehab now. She denies any focal neurologic deficits. PAST MEDICAL HISTORY Diagnosis Date Allergic rhinitis, [...] (5oz) per week Drug use: No MEDICATIONS: carvedilol (COREG) 3.125 mg tablet Take 3.125 mg by mouth two times a day with meals. losartan (COZAAR) 50 mg tablet Take 50 mg by mouth once daily. pravastatin (PRAVACHOL) 40 mg tablet Take 40 mg by mouth daily at bedtime. ticagrelor (BRILINTA) 90 mg tablet Take 90 mg by mouth two times a day. LORazepam (ATIVAN) 0.5 mg Take 1 at bedtime as needed levothyroxine (SYNTHROID) 75 mcg tablet Take 1 tablet by mouth once daily. cyclobenzaprine (FLEXERIL) 10 mg tablet Take 1 tablet by mouth at bedtime as needed for muscle spasm. hydroCHLOROthiazide 50 mg tablet Take 1 tablet by mouth once daily. dicyclomine (BENTYL) 10 mg capsule Take 1 [...] D3 (VITAMIN D-3 ORAL) Take by mouth. ALLERGIES: ALLERGIES Allergen Reactions Axid [Nizatidine] Hives Cymbalta [Duloxetin* Insomnia Lipitor [Atorvastat* Other: See Comments Insomnia, headache and nausea Lisinopril Cough cough with vomiting Losartan Cough Currently taking Meridia [Sibutramin* Rash Sulfabenzamide Intolerance red mouth; sulfa med caused adverse effect PHYSICAL EXAM: BP 154/84 (BP Site: Left Arm, BP Position: Sitting, BP Cuff Size: Regular Adult) Pulse 65 SpO2 99% General: Alert and oriented Extremities: Varicose veins Neurological: Normal cognition and motor skills. Diagnostic tests reviewed for today's visit: Most recent labs Most recent imaging Carotid Duplex Please note: the new carotid interpretation criteria are used as recommended by Intersocietal Accreditation Commission. When compared with the prior study, of 03/29/2023 no sig (more content not included)...[facility] 04-02-2024 History of Present illness Narrative* Annemarie Westbrook, DO - 04/02/2024 11:08 AM EST Images from the original note were not included. [facility] [place] DEPARTMENT OF VASCULAR SURGERY OUTPATIENT VISIT DATE April 02, 2024 OUTPATIENT VISIT TYPE ESTABLISHED SERVICE DATE: 04/02/2024 SERVICE TIME: 11:08 AM PRIMARY CARE PHYSICIAN: Fiorella Hall MD HISTORY OF PRESENT ILLNESS: Ms. Tobar is a 73 year old female who presents today for a vascular surgery follow-up visit after carotid duplex. She is in cardiac rehab now. She denies any focal neurologic deficits. PAST MEDICAL HISTORY Diagnosis Date Allergic rhinitis, [...] (5oz) per week Drug use: No MEDICATIONS: carvedilol (COREG) 3.125 mg tablet Take 3.125 mg by mouth two times a day with meals. losartan (COZAAR) 50 mg tablet Take 50 mg by mouth once daily. pravastatin (PRAVACHOL) 40 mg tablet Take 40 mg by mouth daily at bedtime. ticagrelor (BRILINTA) 90 mg tablet Take 90 mg by mouth two times a day. LORazepam (ATIVAN) 0.5 mg Take 1 at bedtime as needed levothyroxine (SYNTHROID) 75 mcg tablet Take 1 tablet by mouth once daily. cyclobenzaprine (FLEXERIL) 10 mg tablet Take 1 tablet by mouth at bedtime as needed for muscle spasm. hydroCHLOROthiazide 50 mg tablet Take 1 tablet by mouth once daily. dicyclomine (BENTYL) 10 mg capsule Take 1 [...] D3 (VITAMIN D-3 ORAL) Take by mouth. ALLERGIES: ALLERGIES Allergen Reactions Axid [Nizatidine] Hives Cymbalta [Duloxetin* Insomnia Lipitor [Atorvastat* Other: See Comments Insomnia, headache and nausea Lisinopril Cough cough with vomiting Losartan Cough Currently taking Meridia [Sibutramin* Rash Sulfabenzamide Intolerance red mouth; sulfa med caused adverse effect PHYSICAL EXAM: BP 154/84 (BP Site: Left Arm, BP Position: Sitting, BP Cuff Size: Regular Adult) Pulse 65 SpO2 99% General: Alert and oriented Extremities: Varicose veins Neurological: Normal cognition and motor skills. Diagnostic tests reviewed for today's visit: Most recent labs Most recent imaging Carotid Duplex Please note: the new carotid interpretation criteria are used as recommended by Intersocietal [employer]reditation Commission. When compared with the prior study, of 03/29/2023 no significant change is noted on the right side and no significant change is noted on the left side. RIGHT SIDE Common carotid artery: Plaque visualized without evidence of hemodynamically significant stenosis. Internal carotid artery: 50-69% stenosis consistent with moderate carotid artery disease. Vertebral artery: Patent and antegrade flow noted. Subclavian artery: Plaque visualized without evidence of hemodynamically significant stenosis. LEFT SIDE Internal carotid artery: <50% stenosis consistent with mild carotid artery disease. Vertebral artery: Patent and antegrade flow noted. Subclavian artery: Patent. IMPRESSION: Ms. Tobar is a 73 year old female with carotid stenosis . PLAN and RECOMMENDATIONS: Continue current medications Follow up in one year or sooner with any concerns SIGNATURE: Annemarie Westbrook DO PATIENT NAME: Amina Tobar DATE: April 02, 2024 TIME: 11:08 AM documented in this encounterMer[facility] Hospital11-19-2024 Note* Addendum Note - Coco Ocampo APRN.CNP - 04/02/2024 10:06 AM ESTAddended by: COCO OCAMPO on: 04/02/2024 10:06 AM Modules accepted: Orders [facility]11-19-[facility] Telephone encounter Note* Telephone Encounter - Coco Ocampo APRN.CNP - 04/02/2024 10:06 AM EST Done [facility]-19-[facility] Miscellaneous Notes* Addendum Note - Coco Ocampo APRN.CNP - 04/02/2024 10:06 AM ESTAddended by: COCO OCAMPO on: 04/02/2024 10:06 AM Modules accepted: Orders * Telephone Encounter - Coco Ocampo APRN.CNP - 04/02/2024 10:06 AM EST Done * Addendum Note - Kunal Rea MA - 04/02/2024 9:52 AM ESTAddended by: KUNAL REA on: 04/02/2024 09:52 AM Modules accepted: Orders * Telephone Encounter - uKnal Rea MA - 04/02/2024 9:52 AM EST Order pended, please file if agreeable. Kunal Rae MA * Telephone Encounter - Jewel Prakash - 04/02/2024 9:36 AM EST Patient wanted to schedule mammogram but order . Please place order and call patient to schedule. documented in this encounterMercy [facility] Hospital11-19-2024 Note* Addendum Note - Kunal Rea MA - 04/02/2024 9:52 AM ESTAddended by: KUNAL REA on: 04/02/2024 09:52 AM Modules accepted: Orders [facility]-19-[facility] Telephone encounter Note* Telephone Encounter - Kunal Rea MA - 04/02/2024 9:52 AM EST Order pended, please file if agreeable. Kunal Rea MA [facility]-19-[facility] Telephone encounter Note* Telephone Encounter - Jewel Prakash - 04/02/2024 9:36 AM EST Patient wanted to schedule mammogram but order . Please place order and call patient to schedule. [facility]11-01-[facility]24 NoteHNO ID: [id number] Author: COCO OCAMPO APRN.MULTIMEDIA ENGINEER Service: ? Author Type: Nurse Practitioner Type: Progress Notes Filed: 03/15/2024 14:47 Note Text: SUBJECTIVE Amina Tobar is a 73 year old female here today for a hospital follow up. Chief Complaint Patient presents with: Hospital Follow Up: [facility] 03/05/24 with stent placement HPI Amina Tobar is a 73 year old female. She is an established patient of Fiorella Hall MD. Here today for hospital follow up. Discharged from [facility] on 03/05. Cardiac cath done on 03/04 for abnormal stress test. Drug eluting stent placed. Had 50% proximal and 95% midRCA stenosis, proximal LAD stenosis and 40% proximal left circ. EZEKIEL to the mid RCA. Started on Brilinta and ASA, Coreg and losartan. Has follow up with cardiology up coming. Doing cardiac rehab. Checking blood pressure at home and at cardiac rehab. Running 130's/70's. Seeing vascular later this month for known carotid artery stenosis. Her medications were reviewed today and her list is now up to date. Medications Current Outpatient Medications Medication Sig carvedilol (COREG) 3.125 mg tablet Take 3.125 mg by mouth two times a day with meals. losartan (COZAAR) 50 mg tablet Take 50 mg by mouth once daily. pravastatin (PRAVACHOL) 40 mg tablet Take 40 mg by mouth daily at bedtime. ticagrelor (BRILINTA) 90 mg tablet Take 90 mg by mouth two times a day. LORazepam (ATIVAN) 0.5 mg Take 1 at bedtime as needed levothyroxine (SYNTHROID) 75 mcg tablet Take 1 tablet by mouth once daily. cyclobenzaprine (FLEXERIL) 10 mg tablet Take 1 tablet by mouth at bedtime as needed for muscle spasm. hydroCHLOROthiazide 50 mg tablet Take 1 tablet by mouth once daily. dicyclomine (BENTYL) 10 mg capsule Take 1 [...] D3 (VITAMIN D-3 ORAL) Take by mouth. Current Facility-Administered Medications Medication Dose Route Frequency [START ON 04/01/2024] zoledronic acid 5 mg PREMIX piggyback (RECLAST) 5 mg INTRAVENOUS ONCE (AMB - Up to 30 Days) ALLERGIES Allergen Reactions Axid [Nizatidine] Hives Cymbalta [Duloxetin* Insomnia Lipitor [Atorvastat* Other: See Comments Insomnia, headache and nausea Lisinopril Cough cough with vomiting Losartan Cough Meridia [Sibutramin* Rash Sulfabenzamide Intolerance red mouth; sulfa med caused adverse effect ACTIVE PROBLEM LIST Coronary Artery Disease Involving [place] Coronary Artery of [place] Heart Without Angina Pectoris - 03/15/2024 Disorder of Carotid Artery (Hcc) - 02/03/2023 Constipation - 11/28/2022 Essential Hypertension - 06/13/2019 Anxiety, Generalized - 06/13/2019 Abdominal Pain, Rlq - 06/13/2019 Psychophysiological Insomnia - 06/13/2019 Other and Unspecified Noninfectious Gastroenteritis and Colitis(558.9) - 04/09/2014 Parapelvic Renal Cyst - 01/14/2014 Comment: CT [facility] 12/29/13 Lipoma of Unspecified Site - 02/09/2010 [...] week Drug use: No Review of Systems Constitutional: Negative. Respiratory: Negative. Cardiovascular: Negative. OBJECTIVE B (more content not included)...[facility]11-01-2024 History of Present illness Narrative* Coco Ocampo APRN.MULTIMEDIA ENGINEER - 03/15/2024 2:05 PM EDT SUBJECTIVE Amina Tobar is a 73 year old female here today for a hospital follow up. Chief Complaint Patient presents with: Hospital Follow Up: [facility] 03/05/24 with stent placement HPI Amina Tobar is a 73 year old female. She is an established patient of Fiorella Hall MD. Here today for hospital follow up. Discharged from [facility] on 03/05. Cardiac cath done on 03/04 for abnormal stress test. Drug eluting stent placed. Had 50% proximal and 95% midRCA stenosis, proximal LAD stenosis and 40% proximal left circ. EZEKIEL to the mid RCA. Started on Brilinta and ASA, Coreg and losartan. Has follow up with cardiology up coming. Doing cardiac rehab. Checking blood pressure at home and at cardiac rehab. Running 130's/70's. Seeing vascular later this month for known carotid artery stenosis. Her medications were reviewed today and her list is now up to date. Medications Current Outpatient Medications Medication Sig carvedilol (COREG) 3.125 mg tablet Take 3.125 mg by mouth two times a day with meals. losartan (COZAAR) 50 mg tablet Take 50 mg by mouth once daily. pravastatin (PRAVACHOL) 40 mg tablet Take 40 mg by mouth daily at bedtime. ticagrelor (BRILINTA) 90 mg tablet Take 90 mg by mouth two times a day. LORazepam (ATIVAN) 0.5 mg Take 1 at bedtime as needed levothyroxine (SYNTHROID) 75 mcg tablet Take 1 tablet by mouth once daily. cyclobenzaprine (FLEXERIL) 10 mg tablet Take 1 tablet by mouth at bedtime as needed for muscle spasm. hydroCHLOROthiazide 50 mg tablet Take 1 tablet by mouth once daily. dicyclomine (BENTYL) 10 mg capsule Take 1 [...] D3 (VITAMIN D-3 ORAL) Take by mouth. Current Facility-Administered Medications Medication Dose Route Frequency [START ON 04/01/2024] zoledronic acid 5 mg PREMIX piggyback (RECLAST) 5 mg INTRAVENOUS ONCE (AMB - Up to 30 Days) ALLERGIES Allergen Reactions Axid [Nizatidine] Hives Cymbalta [Duloxetin* Insomnia Lipitor [Atorvastat* Other: See Comments Insomnia, headache and nausea Lisinopril Cough cough with vomiting Losartan Cough Meridia [Sibutramin* Rash Sulfabenzamide Intolerance red mouth; sulfa med caused adverse effect ACTIVE PROBLEM LIST Coronary Artery Disease Involving [place] Coronary Artery of [place] Heart Without Angina Pectoris - 03/15/2024 Disorder of Carotid Artery (Hcc) - 02/03/2023 Constipation - 11/28/2022 Essential Hypertension - 06/13/2019 Anxiety, Generalized - 06/13/2019 Abdominal Pain, Rlq - 06/13/2019 Psychophysiological Insomnia - 06/13/2019 Other and Unspecified Noninfectious Gastroenteritis and Colitis(558.9) - 04/09/2014 Parapelvic Renal Cyst - 01/14/2014 Comment: CT [facility] 12/29/13 Lipoma of Unspecified Site - 02/09/2010 [...] week Drug use: No Review of Systems Constitutional: Negative. Respiratory: Negative. Cardiovascular: Negative. OBJECTIVE BP 140/76 Pulse 68 Wt 154 lb 1.6 oz (69.9kg) SpO2 99% Physical Exam Vitals and nursing note reviewed. [...] respiratory distress. Breath sounds: Normal breath sounds. Musculoskeletal: Cervical back: Neck supple. Skin: General: [...] memory normal. Judgment: Judgment normal. ASSESSMENT/PLAN: 1. Coronary artery disease involving kake coronary artery of kake heart without angina pectoris- ICD9: 414.01, ICD10: I25.10 (primary diagnosis) Discussed hospital stay, reviewed records from care everywhere. Discussed medications. Questions answered. Follow up with cardiology is upcoming. 2. Status post angioplasty with stent - ICD9: V45.89, ICD10: Z95.820 See above. 3. Essential hypertension - ICD9: 401.9, ICD10: I10 - Home blood pressure readings controlled - Continue current medications - Recommend home blood pressure monitoring, to bring results to next visit - Encouraged sodium restriction, DASH or Mediterranean diet - Recommend regular aerobic exercise 4. Hyperlipemia, mixed - ICD9: 272.2, ICD10: E78.2 - Continue current medications - Counseled on healthy diet and regular exercise 5. Disorder of carotid artery (HCC) - ICD9: 447.9, ICD10: I77.9 Follow up with vascular. Portions of this note have been entered by ancillary staff. I have reviewed and when necessary edited, so that they are an adequate record of my encounter with this patient Please note that parts of this document were created using voice recognition software and therefore may contain grammatical errors. Patient verbalizes understanding of instructions from today's visit and in agreement with treatmentplan. Questions answered. Agrees to call the office [...] as well as compliance with taking medications. Age- appropriate health preventative measures were discussed. Return if symptoms worsen or fail to improve, for Keep next scheduled appointment.. Coco Ocampo APRN-RICO documented in this encounterMer[facility]10-22-2024 [facility]09-25-[facility]24 Telephone encounter Note* Telephone Encounter - Shaniqua Trevino - 02/07/2024 11:38 AM EDT I called and spoke to Amy and scheduled her for her reclast infusion for 04/03/24 @ 10:00 am, patient confirmed this date, time and location. Shaniqua Neumann [facility]09-25-2024 Miscellaneous Notes* Telephone Encounter - Shaniqua Trevino - 02/07/2024 11:38 AM EDT I called and spoke to Amy and scheduled her for her reclast infusion for 04/03/24 @ 10:00 am, patient confirmed this date, time and location. Shaniqua Neumann * Telephone Encounter - Deana Mobley LPN - 02/07/2024 9:26 AM EDT Patient is needing scheduled for a Reclast infusion on or after 03/30/24. Please call and assist with scheduling. documented in this encounterMercy Health [facility] Hospital09-25-2024 Telephone encounter Note * Telephone Encounter - Deana Mobley LPN - 02/07/2024 9:26 AM EDT Patient is needing scheduled for a Reclast infusion on or after 03/30/24. Please call and assist with scheduling. [facility]-25-[facility] Instructions* Patient Instructions* Fiorella Hall MD - 02/07/2024 8:16 AM EDT Screening schedule The following prevention plan is recommended: DTaP,Tdap,Td Vaccine(2 - Td or Tdap) due on 09/08/2021 Advance Directive Discussion due on 05/15/2023 Mammogram Screening due on 03/01/2024 WHAT YOU CAN DO TO PREVENT FALLS [...] review all the medicines you take, even shul-ubs-hdipsog medicines. As you get older, the way medicines work in your body can change. Some medicines, or combinations of medicines, can make you sleepy or dizzy andcan cause you to fall. 3. Have your [...] have certain medical conditions. documented in this encounterMercy Health West Hospital09-25-2024 NoteHNO ID: [id number] Author: FIORELLA HALL MD Service: ? Author Type: Physician Type: Progress Notes Filed: 03/14/2024 21:32 Note Text: This note was created using [employer]. Subjective Amina Tobar is a 73 year old female. HISTORY Amina Tobar is a 73 year old lady here for Medicare Annual Wellness Visit, yearly exam and follow up appointment. The patient is a 73-year-old female with a history of hypothyroidism, hypercholesterolemia, and osteoporosis, presenting for a Medicare Annual Wellness Visit. The patient reports not feeling well for the past few months, with symptoms including fatigue, mental fogginess, and myalgia. She was recently treated for a UTI by Coco last week. She has been taking Synthroid 50 mcg daily for hypothyroidism and recently increased the dose to 100 mcg for two days due to feeling unwell. She takes Synthroid, omeprazole, and hydrochlorothiazide together in the morning for the past 8-9 years. She also takes magnesium nightly to aid sleep and reports no issues with loose stools or diarrhea. She denies any issues with her dentures. She reports a history of hypercholesterolemia but has not been taking her medication due to experiencing myalgia, which she attributes to the medication. She also reports a history of osteoporosis and received a bone infusion last year. She is due for another infusion in March. She reports a history of cataracts and is due for an eye appointment. She also reports a history of reflux and is taking omeprazole as needed. She reports a history of back spasms and has been taking cyclobenzaprine as needed. She also reports a history of anxiety and has been taking lorazepam as needed. She denies any issues with sexual function, anxiety, stress, anger, irritability, loneliness, or thoughts of self-harm. She reports a history of falls, with the most recent fall occurring while trying to get her cat into a carrier. She reports a history of balance issues, particularly when turning quickly. She denies any issues with hearing or vision. She reports a history of alcohol use, drinking 1 drink 2-4 times a month. She denies any use of tobacco products. She reports eating healthy foods more than half the days of the week. She reports exercising daily, including walking, biking, and yoga. She denies needing any help with activities of daily living. She reports a history of mammograms and is due for her next one. She also reports a history of colonoscopies, with the most recent one being last year. She denies any changes in family history. She has an advanced directive in place. PAST MEDICAL HISTORY Diagnosis Date Allergic rhinitis, [...] D3 (VITAMIN D-3 ORAL) Take by mouth. meloxicam (MOBIC) 15 mg tablet Take 15 mg by mouth once daily as needed for pain. No current facility-administered medications for this visit. ALLERGIES Al (more content not included)...[facility]09-25-2024 History of Present illness Narrative* Fiorella Hall MD - 02/07/2024 8:15 AM EDT Images from the original note were not included. This note was created using GeoLearning. Subjective Amina Tobar is a 73 year old female. HISTORY Amina Tobar is a 73 year old lady here for Medicare Annual Wellness Visit, yearly exam and follow up appointment. The patient is a 73-year-old female with a history of hypothyroidism, hypercholesterolemia, and osteoporosis, presenting for a Medicare Annual Wellness Visit. The patient reports not feeling well forthe past few months, with symptoms including fatigue, mental fogginess, and myalgia. She was recently treated for a UTI by Coco last week. She has been taking Synthroid 50 mcg daily for hypothyroidism and recently increased the dose to 100 mcg for two days due to feeling unwell. She takes Synthroid, omeprazole, and hydrochlorothiazide together in the morning for the past 8-9 years. She also takesmagnesium nightly to aid sleep and reports no issues with loose stools or diarrhea. She denies any issues with her dentures. She reports a history of hypercholesterolemia but has not been taking her medication due to experiencing myalgia, which she attributes to the medication. She also reports a history of osteoporosis and received a bone infusion last year. She is due for another infusion in March. She reports a history of cataracts and is due for an eye appointment. She also reports a history of reflux and is taking omeprazole as needed. She reports a history of back spasms and has been taking cyclobenzaprine as needed. She also reports a history of anxiety and has been taking lorazepam as needed. She denies any issues with sexual function, anxiety, stress, anger, irritability, loneliness, or thoughts of self-harm. She reports a history of falls, with the most recent fall occurring while trying to get her cat into a carrier. She reports a history of balance issues, particularly when turning quickly. She denies any issues with hearing or vision. She reports a history of alcohol use, drinking 1 drink 2-4 times a month. She denies any use of tobacco products. She reports eating healthy foods more than half the days of the week. She reports exercising daily, including walking, biking, and yoga. She denies needing any help with activities of daily living. She reports a history of mammograms and is due for her next one. She also reports a history of colonoscopies, with the most recent one being last year. She denies any changes in family history. She has an advanced directive in place. PAST MEDICAL HISTORY Diagnosis Date Allergic rhinitis, [...] D3 (VITAMIN D-3 ORAL) Take by mouth. meloxicam (MOBIC) 15 mg tablet Take 15 mg by mouth once daily as needed for pain. No current facility-administered medications for this visit. ALLERGIES Allergen Reactions Axid [Nizatidine] Hives Cymbalta [Duloxetin* Insomnia Lipitor [Atorvastat* Other: See Comments Insomnia, headache and nausea Lisinopril Cough cough with vomiting Losartan Cough Meridia [Sibutramin* Rash Sulfabenzamide Intolerance red mouth; sulfa med caused adverse effect FAMILY HISTORY Problem Relation Age of Onset Diabetes Father also CAD/VT Coronary Artery Disease Mother CABG at age 80 Cancer Other aunt lung cancer Social History Tobacco Use Smoking status: Former Types: Cigarettes Start date: 05/15/1986 Smokeless tobacco: Never Vaping Use Vaping status: Never Used Substance Use Topics Alcohol use: Yes Alcohol/week: 3.0 standard drinks of alcohol Types: 3 Glasses of Wine (5oz) per week Drug use: No Review of Systems Objective BP 124/72 (BP Site: Left Arm, BP Position: Sitting, BP Cuff Size: Regular Adult) Pulse 78 Resp 16 Ht 152.4 cm (5') Wt 68.9 kg (151 lb 14.4 oz) BMI 29.67 kg/m Physical Exam Vitals reviewed. Constitutional: Appearance: Normal appearance. She is well-developed. HENT: Head: Normocephalic and atraumatic. Right Ear: Tympanic membrane, ear canal and external ear normal. Left Ear: Tympanic membrane, ear canal and external ear normal. Nose: Nose normal. Mouth/Throat: Mouth: Mucous membranes are moist. Eyes: Conjunctiva/sclera: Conjunctivae normal. Pupils: Pupils are equal, round, and reactive to light. Neck: Thyroid: No thyromegaly. Vascular: No carotid [...] no mass. Tenderness: There is no abdominal tenderness (exfept mild RLQ). Musculoskeletal: General: No deformity. Normal range of [...] No abnormal muscle tone. Coordination: Coordination normal. Gait: Gait normal. Deep Tendon Reflexes: Reflexes normal. Psychiatric: Attention and Perception: Attention and perception normal. Mood and Affect: Mood and affect normal. Speech: Speech normal. Behavior: Behavior normal. Thought Content: Thought content normal. Cognition and Memory: Cognition and memory normal. Judgment: Judgment normal. Latest Ref Rng 01/12/2023 08/03/2023 02/02/2024 Protein, Total 6.3 - 8.0 g/dL 6.2 (L) 6.5 6.2 (L) Albumin 3.9 - 4.9 g/dL 4.0 4.1 4.0 Calcium 8.5 - 10.2 mg/dL 9.9 9.2 9.2 Bilirubin, Total 0.2 - 1.3 mg/dL 0.3 0.3 0.4 Alkaline Phosphatase 34 - 123 U/L 78 64 55 AST 13 - 35 U/L 13 14 20 ALT 7 - 38 U/L 7 11 12 Glucose 74 - 99 mg/dL 117 (H) 102 (H) 121 (H) BUN 7 - 21 mg/dL 15 10 10 Creatinine 0.58 - 0.96 mg/dL 1.00 (H) 0.80 0.84 Sodium 136 - 144 mmol/L 138 139 137 Potassium 3.7 - 5.1 mmol/L 4.2 4.0 3.7 Chloride 98 - 107 mmol/L 104 104 104 CO2 22 - 30 mmol/L 23 28 21 (L) Anion Gap 8 - 15 mmol/L 11 7 (L) 12 eGFR >=60 mL/min/1.73m 60 78 73 WBC 3.70 - 11.00 k/uL 6.34 7.19 4.82 RBC 3.90 - 5.20 m/uL 4.42 4.45 4.32 Hemoglobin 11.5 - 15.5 g/dL 13.6 13.9 13.5 Hematocrit 36.0 - 46.0 % 40.1 40.7 39.0 MCV 80.0 - 100.0 fL 90.7 91.5 90.3 MCH 26.0 - 34.0 pg 30.8 31.2 31.3 MCHC 30.5 - 36.0 g/dL 33.9 34.2 34.6 RDW-CV 11.5 - 15.0 % 12.5 13.1 12.5 Platelet Count 150 - 400 k/uL 282 243 267 MPV 9.0 - 12.7 fL 9.6 9.4 9.4 Absolute nRBC <0.01 k/uL <0.01 <0.01 <0.01 Cholesterol, Total <200 mg/dL 221 (H) Triglyceride <150 mg/dL 75 HDL Cholesterol >39 mg/dL 70 Non HDL Cholesterol <130 mg/dL 151 (H) Fasting Time hrs 12 VLDL Cholesterol <30 mg/dL 15 TC:HDL Ratio <5.10 3.16 LDL Cholesterol <100 mg/dL 136 (H) LDL:HDL Ratio <2.54 1.94 Hemoglobin A1C 4.3 - 5.6 % 5.6 Estimated Average Glucose mg/dL 114 TSH 0.270 - 4.200 mIU/L 0.383 2.000 6.800 (H) Free T4 0.9 - 1.7 ng/dL 1.3 1.4 1.3 Free T3 2.3 - 4.1 pg/mL 3.3 2.5 2.6 Vitamin D 25 Hydroxy 31.0 - 80.0 ng/mL 29.3 (L) 27.0 (L) 35.7 Magnesium 1.7 - 2.3 mg/dL 1.7 1.6 (L) Legend: (L) Low (H) High Assessment and Plan-See below Amina Tobar is a 73 year old female here for a Medicare wellness visit. Medicare Health Risk Assessment General Health Exercise: Minutes/Day Exercise: Days/Week Alcohol: Daily Use Alcohol: Drinks/Day Alcohol: 6 or more drinks Feel off balance Concerns: Teeth/Dentures Concerns: Sexual function Troubled by feelings Frequency: Eating healthy diet ADLs requiring help Safety precautions in home/vehicle Smoke, vape, chews tobacco Difficulty hearing Difficulty seeing Current Providers Specialists: I have reviewed specialist-related care of the patient in the medical record. Outside specialists seen: Dr. Kam--cardiology, Dr. Vences--General Surgery for colonoscopy Medical/Family history review Reviewed and updated problem list, medical/surgical/family/social history, medications, and allergies. Opioid use review Opioid Medications (last 90 days) No data to display Anxiety/Depression screening (Lower risk for depression) Recommendation: no further intervention at this time Cognitive screening Mini Cog Score: 5 Cognitive screening reviewed and No further action needed (score 3-5). Functional Observation Was the patient's Timed Up & Go test unsteady or >= 12 seconds? No Advance Care Planning Surrogate decision maker and/or advance care plan documented Measurements BP 124/72 (BP Site: Left Arm, BP Position: Sitting, BP Cuff Size: Regular Adult) Pulse 78 Resp 16 Ht 152.4 cm (5') Wt 68.9 kg (151 lb 14.4 oz) BMI 29.67 kg/m Vision Screening: Follows with optometry/ophthalmology Assessment/Plan Medicare annual wellness visit, subsequent (Z00.) - Counseled on healthy diet and regular exercise - Fall avoidance information provided - Personalized prevention plan provided # Medicare annual wellness visit, subsequent (Z00.00) - Completed Medicare annual wellness visit. - Discussed health maintenance, including regular exercise, healthy diet, and safety precautions. - Patient reports regular follow-ups with cardiology and otolaryngology surgeon. - Scheduled mammogram and eye doctor appointments. - Advised on the importance of flu and COVID-19 vaccinations; patient plans to receive them at the pharmacy. - Discussed the need for a tetanus booster; patient advised to receive it at the pharmacy. - Reviewed advanced directives; confirmed documentation is up to date. # Acquired hypothyroidism (E03.9) - Recent labs show elevated TSH levels. - Current medication: Synthroid 50 mcg, taking 1 daily for 5 days and 2 daily on 2 days. - Increased Synthroid dose to 75 mcg once daily. - Ordered repeat TSH, T4, and T3 levels in 6 weeks. - Patient reports fatigue and foggy feeling, likely related to hypothyroidism. # Age-related osteoporosis without current pathological fracture (M81.0) - Due for Reclast infusion in March. - Ordered Reclast infusion to be scheduled after 03/30. - Patient remains active with weight-bearing exercises. # Hypomagnesemia (E83.42) - Recent labs show magnesium level slightly below normal. - Patient taking magnesium supplement once daily. - Advised to increase magnesium supplement to twice daily. - Ordered repeat magnesium level with next lab work. # Anxiety, generalized (F41.1) - Patient reports occasional anxiety. - Refilled lorazepam prescription. # Vitamin D deficiency (E55.9) - Vitamin D levels are stable. - Continue current supplementation. # IFG (impaired fasting glucose) (R73.01) - Recent glucose level 121 mg/dL. - Previous A1c was 5.6%. - Ordered repeat A1c with next lab work. - Discussed the importance of maintaining a healthy diet and regular exercise. # Essential hypertension (I10) - Blood pressure well-controlled on current medication regimen. - Continue current antihypertensive medications. # Encounter for long-term current use of medication (Z79.899) - Reviewed and updated medication list. - Added meloxicam to medication list; patient takes it daily. - Refilled cyclobenzaprine prescription for back spasms. - Patient taking omeprazole, bupropion, and dicyclomine as needed. # Encounter for immunization (Z23) Fiorella Hall MD documented in [facility] encounter[facility]24 NoteHNO ID: [id number] Author: COCO OCAMPO APRN.MULTIMEDIA ENGINEER Service: ? 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 Pulmonary: Effort: Pulmona (more content not included)...[facility] 01-30-2024 History of Present illness Narrative* Coco Ocampo APRN.MULTIMEDIA ENGINEER - 01/30/2024 11:06 AM EDT SUBJECTIVE Aimna Tobar is a 73 year old female [...] Parapelvic Renal Cyst - 01/14/2014 Comment: [facility] 12/29/13 Lipoma of Unspecified Site - 02/09/2010 [...] from today's visit and in agreement with treatmentplan. Questions answered. Agrees to call the office [...] as well as compliance with taking medications. Age- appropriate health preventative measures were discussed. Return if symptoms worsen or fail to improve, for Keep next scheduled appointment.. Coco Ocampo APRN-RICO documented in this encounterMer[facility]09-17-2024 Instructions* Patient Instructions* Elo Christianson LPN - 01/30/2024 11:06 AM [...] treated. A physician, nurse practitioner or physician title i instructional assistant may treat with a short course [...] women if symptoms resolve. documented in this encounterMercy [facility]08-02-2024 NoteHNO ID: [id number] Author: PATRICIA VELEZ MA Service: ? Author Type: Tax Investigator Type: Progress Notes Filed: 12/15/2023 15:41 Note [...] Patricia Velez MA December 15, 2023 1:36 [facility]08-02-2024 History of Present illness Narrative* Patricia Velez MA - 12/15/2023 1:36 PM EDT POPULATION HEALTH NAVIGATION OUTREACH Action/FYI Spoke with Amy. Scheduled MAMMOGRAMS Reason for Outreach Care Gap/HCC or Scheduling Wellness Visits Care Gaps due: Breast Cancer Screening Patient Contacted: Spoke to patient/parent/or legal guardian Patient identified by name and : Yes Care Gap/HCC/Scheduling Wellness actions taken: Patient scheduled/pended labs: Breast Cancer Screening Navigation Signature: Patricia Velez MA December 15, 2023 1:36 PM documented in this encounterMercy [facility]08-02-2024 NotePatient Outreach (NETNAV) AMINA TOBAR ([id number]) 1950 F NFR Date Time Provider Department 12/15/23 PATRICIA VELEZ NETNAV During your visit today, we recorded [...] Visit: Population Health Navigation Outreach [3910] Cmt: [facility] Prescriptions as of 12/15/2023 - hydroCHLOROthiazide [...] 02/03/2023 Encounter Status:Closed by PATRICIA VELEZ on 12/15/23[facility]07[facility] Instructions* Patient Instructions* Fiorella Hall MD - 12/04/2023 12:05 PM EDT Gas X up to 125 mg up to 4 times daily Miralax in AM Metamucil in PM. Carafate if can keep bowels going. Might need above only, or add stool softener or Senna. Probiotics are fine to try Low residual foods for now till bowels moving better. documented in this encounterMercy [facility] Hospital07-22-2024 NoteHNO ID: [id number] Author: FIORELLA HALL MD Service: ? Author Type: Physician Type: Progress Notes Filed: 01/16/2024 23:09 Note Text: This note was created using kwiryter. Subjective Amina Tobar is a 72 year [...] evaluation and treatment as indicated. Fiorella Hall [facility]07-22-2024 History of Present illness Narrative* Fiorella Hall MD - 12/04/2023 11:47 AM EDT This note was created using NoteWriter. Subjective Amina Tobar is a 72 year old female. No chief complaint on file. SUBJECTIVE: Amina Tobar is a 72 year old year old lady here today for follow up appointment for review ofmedical conditions. Gastritis seen on EGD. Gets bloating [...] indicated. Fiorella Hall MD documented in this encounterMercy [facility] Hospital07-22-2024 Telephone encounter Note * Telephone Encounter - Ashley Mack RN - 12/04/2023 10:00 AM EDT Patient calls and states that she has had GI issues since she had endoscopy done 4 weeks ago. Patient has been having nausea and some abdominal discomfort after she eats. Patient scheduled with Dr. Hall today to discuss. Ashley Mack RN [facility]07-22-[facility]24 Miscellaneous Notes* Telephone Encounter - Ashley Mack RN - 12/04/2023 10:00 AM EDT Patient calls and states that she has had GI issues since she had endoscopy done 4 weeks ago. Patient has been having nausea and some abdominal discomfort after she eats. Patient scheduled with Dr. Hall today to discuss. Ashley Mack RN documented in this encounterMercy Health [facility] Hospital03-25-2024 Instructions* Patient Instructions* Fiorella Hall MD - 08/07/2023 9:02 AM EDT Vitamin D3--add 2000 units to whatever dose you are taking now. documented in this encounterMercy Health [facility] Hospital03-25-2024 History of Present illness Narrative* Fiorella Hall MD - 08/07/2023 8:52 AM EDT This note was created using [employer]igator Bioscien[employer]. Subjective Amina Tobar is a 72 year [...] doctor in March - Patient visited a button breaker a month ago - Patient has mild [...] Another appointment in July Note drafted by [employer]. Note reviewed, edited, and signed by the [...] 124/76 Pulse 80 Ht 154.9 cm (5' 1) Wt 67 kg (147 lb 12.8 oz) [...] F33.42 Fiorella Hall MD documented in this encounterMercy [facility] Hospital11-01-2023 Miscellaneous Notes* Telephone Encounter - Jackelyn Novak - 03/15/2023 2:20 PM EDT Scheduled with patient Start email sent * Telephone Encounter - Marlena Liao - 03/15/2023 11:26 AM EDT 1st attempt: When pt returns call please assist in scheduling * Telephone Encounter - Marlena Liao - 03/15/2023 10:32 AM EDT Please flip orders to [place] for scheduling Thank you! * Telephone Encounter - Marlena Liao - 03/15/2023 9:01 AM EDT Images from the original note were not included. Coco Ocampo APRN.CNP P tr Hem/Onc Psr Patient has orders for reclast infusions, can we please get her set up for this? Thank you!! Coco documented in this encounterMercy Health [facility] Hospital10-30-2023 Miscellaneous Notes* Telephone Encounter - Carolee Coto OCCA - 03/13/2023 10:34 AM EDT TC to patient who verbalized understanding of providers message below. Patient is agreeable to OV with Anahy Ocampo and per patient preference, is now scheduled 03/15/23. Nothing further at this time. TYSON Lopez * Telephone Encounter - Coco Ocampo APRN.MULTIMEDIA ENGINEER - 03/13/2023 8:46 AM EDT Please let May know her bone density scan done at [facility] does show osteoporosis which has progressed from osteopenia on the prior bone density scan done in 2019. She should continue her calcium and vitamin D. Try to do strength training (light weights) exercise at least 2-3 times weekly. With the progression of her bone weakening taking medication to help treat this is ideal. Please see if she wouldbe able to come in for an appointment to discuss her options for this since there are a few different options. documented in this encounterMercy [facility] Hospital09-22-2023 Instructions* Patient Instructions* Fiorella Hall MD - 02/03/2023 8:53 AM [...] review all the medicines you take, even [id number] medicines. As you get older, the way medicines work in your body can change. Some medicines, or combinations of medicines, can make you sleepy or dizzy andcan cause you to fall. 3. Have your [...] medical conditions. BONE MINERAL DENSITY PATIENT INSTRUCTIONS Bone mineral density testing measures the amount of calcium in certain parts of your bones. This information determines how strong your bones are. The test is used to detect osteoporosis, a disease in which the bone's mineral content and density are low, increasing a person's risk of fractures. Thelumbar spine (lower back) and the hip are [...] your usual activities immediately. documented in this encounterMercy Health [facility] Hospital09-22-2023 History of Present illness Narrative* Fiorella Hall MD - 02/03/2023 8:10 AM EDT This note was created using [employer]igator Bioscien[employer]iter. Subjective Amina Tobar is a 72 year old female. HISTORY Amina Tobar is a 72 year old lady here for Medicare Wellness (see documentation below) and yearly exam and follow up appointment. Requested mammogram to be done at [facility]. Needed order faxed. Reflux and rhinitis noted. [...] mouth daily before breakfast. Except 1/2 tab vit B complex no.12/niacin,B3, (VITAMIN B [...] Relation Age of Onset Diabetes Father also CAD/VT Coronary Artery Disease Mother CABG at age [...] (P) 66 Ht (P) 154.9 cm (5' 1) Wt (P) 73.5 kg (162 lb) BMI [...] Abs Lymph 1.00 - 4.00 k/uL 2.43 [place]% % 9.4 Abs [place] <0.87 k/uL 0.50 [place]% % 2.4 Abs [...] Concerns with sexual function: Not at all [place] anxious, stressed, angry, irritable, lonely, isolated, or [...] whole grains, and fiber-rich foods: More than halfthe days Number of days per week engages in exercise: 3 days Average alcohol consumption: Patient refused Current Providers Specialists: I have reviewed specialist-related care of the patient in the medical record. Outside specialists seen: Dr. Michelle (Pain management), Dr. Currie ([facility]) Medical/Family history review Reviewed and updated problem [...] - Mammogram recommended and ordered- Bone density ordered--[facility] Additional Concerns The following concerns were also discussed with the patient: See above documentation above Medicare Wellness documentation. Fiorella Hlal MD documented in this encounterMercy Health [facility] Hospital07-17-2023 Nurse Note* Carey Rothman RN - 11/28/2022 1:11 PM EDT Arrived in phase II via cart. Left lateral position. Sedated, but responds to verbal stimuli. Colornormal; skin warm and dry. Respirations wnl and unlabored. Abdomen soft and with + bowel sounds in quads X 4. Patient resting comfortably. Family at bedside. Carey Rothman RN documented in this encounterMercy Health [facility] Hospital07-17-2023 History and physical note * Sarah Ryan MD - 11/28/2022 12:45 PM EDT UPDATED PROCEDURAL SEDATION HISTORY AND PHYSICAL EXAMINATION SERVICE DATE: 11/28/2022 SERVICE TIME: 12:08 PHYSICAL EXAM MUST BE COMPLETED ON ADMISSION PROCEDURE: colonoscopy, possible biopsies Procedure Indications: constipation The History and Physical (completed in the past 30 days) has been reviewed and the patient has beenexamined. The contents accurately reflect the patient's condition [...] Amina Tobar 1950 REFERRING PHYSICIAN: Coco Ocampo APRN.MULTIMEDIA ENGINEER CHIEF COMPLAINT: Consult (Constipation, colonoscopy consult) HPI: [...] tablet Take 1 tablet by mouth once daily.(Patient not taking: Reported on 11/08/2022) magnesium oxide [...] Relation Age of Onset Diabetes Father also CAD/VT Coronary Artery Disease Mother CABG at age 80 Cancer Other aunt lung cancer The review of systems data was entered by the nurse and reviewed by me Nursing Notes: More Richards LPN 11/08/2022 8:20 [...] nourished, well hydrated in no acute distress. Thepatient is oriented to time, place, and person. VITALS: Blood pressure 108/68, pulse 94, temperature 36.5 C (97.7 F), height 157.5 cm (5' 2), weight 72.6 kg (160 lb), SpO2 98 [...] such as liver/spleen, perforation of the GI tract,inability to complete the procedure, complications of anesthesia, etc. - the patient understands. The patient wishes to proceed. I have answered all questions to the patient s satisfaction and the patient has no further questions. * Sarah Ryan MD - 11/28/2022 12:45 PM EDT HISTORY AND PHYSICAL Amina Tobar 1950 REFERRING PHYSICIAN: Coco Ocampo APRN.MULTIMEDIA ENGINEER CHIEF COMPLAINT: Consult (Constipation, colonoscopy consult) HPI: [...] tablet Take 1 tablet by mouth once daily.(Patient not taking: Reported on 11/08/2022) magnesium oxide [...] Relation Age of Onset Diabetes Father also CAD/VT Coronary Artery Disease Mother CABG at age 80 Cancer Other aunt lung cancer The review of systems data was entered by the nurse and reviewed by hi Nursing Notes: More Richards LPN 11/08/2022 8:20 [...] nourished, well hydrated in no acute distress. Thepatient is oriented to time, place, and person. VITALS: Blood pressure 108/68, pulse 94, temperature 36.5 C (97.7 F), height 157.5 cm (5' 2), weight 72.6 kg (160 lb), SpO2 98 [...] such as liver/spleen, perforation of the GI tract,inability to complete the procedure, complications of anesthesia, etc. - the patient understands. The patient wishes to proceed. I have answered all questions to the patient s satisfaction and the patient has no further questions. documented in this encounterMercy Health [facility] Hospital06-27-2023 History of Present illness Narrative* Sarah Ryan MD - 11/08/2022 8:42 AM EDT HISTORY AND PHYSICAL Amina Martinez Ekaterina 1950 REFERRING PHYSICIAN: Coco Ocampo APRN.MULTIMEDIA ENGINEER CHIEF COMPLAINT: Consult (Constipation, colonoscopy consult) HPI: [...] tablet by mouth daily before breakfast. Except / tab Cholecalciferol, Vitamin D3, 50 mcg (2,000 [...] tablet Take 1 tablet by mouth once daily.(Patient not taking: Reported on 11/08/2022) magnesium oxide [...] Relation Age of Onset Diabetes Father also CAD/VT Coronary Artery Disease Mother CABG at age 80 Cancer Other aunt lung cancer The review of systems data was entered by the nurse and reviewed by hi Nursing Notes: More Richards LPN 11/08/2022 8:20 [...] nourished, well hydrated in no acute distress. Thepatient is oriented to time, place, and person. VITALS: Blood pressure 108/68, pulse 94, temperature 36.5 C (97.7 F), height 157.5 cm (5' 2), weight 72.6 kg (160 lb), SpO2 98 [...] such as liver/spleen, perforation of the GI tract,inability to complete the procedure, complications of anesthesia, [...] will be scheduled for the procedure at [facility]. Diagnoses: (Z12.11) Screening for colon cancer (primary [...] patient will be scheduled for procedure at [facility]. Medical Decision Making: Problems: Low: Stable chronic illness Risk: Low: Low risk from testing/treatment Medical Decision Making Level: 3 - Low Sarah Ryan MD documented in this encounterMercy [facility] Hospital06-27-2023 Instructions* Patient Instructions* Sarah Ryan MD - 11/08/2022 8:38 AM EDT Images from the original note were not included. Bowel Preparation Instructions for: Golytely, Nulytely, Trilyte or Colyte (polyethylene glycol 3350and electrolytes) IF YOU DO NOT FOLLOW THESE [...] If you do not have a responsible commercial driver (family member or friend) with you to take you home, your exam cannot be done with sedation and will be cancelled. Please bring a list of all of your current medications, including any Over-the Counter medications with you. Medications If you take insulin, diabetic medications or blood thinners such as Coumadin (warfarin), Plavix (clopidogrel), Ticlid (ticlopidine hydrochloride), Agrylin (anagrelide), Xarelto (Rivaroxaban), Pradaxa(Dabigatran), Eliquis (Apixaban), and Effient (Prasugrel). You MUST [...] Golytely, Nulytely, Trilyte or Colyte (polyethylene glycol 3350and electrolytes) Three (3) Days Before Your Colonoscopy [...] your exam. 2 04/2019 documented in this encounterMercy Health West Hospital06-27-2023 Nurse Note* More Richards LPN - 11/08/2022 8:17 AM EDT REVIEW OF SYSTEMS: General: The patient denies [...] 2013 More Richards LPN documented in this encounterMercy Health West Hospital06-26-2023 Instructions* Patient Instructions* Coco Ocampo APRN.CNP - 11/07/2022 12:59 PM EDT Keep up [...] can also try senna. documented in this encounterMercy Health West Hospital06-26-2023 History of Present illness Narrative* Coco Ocampo APRN.RICO - 11/07/2022 12:43 PM EDT SUBJECTIVE Amina Tobar is a 71 year [...] last 4-6 months started to notice more c onstipation. Last 4-6 weeks worse. Had to self [...] 17 g by mouth once daily. Dissolve dosein 4 - 8 ounces of liquid and [...] Parapelvic Renal Cyst - 01/14/2014 Comment: [facility] 12/29/13 Lipoma of Unspecified Site - 02/09/2010 [...] smooth move tea. Senna if constipation persistent. [place] to general surgery to discuss updating her [...] from today's visit and in agreement with treatmentplan. Questions answered. Agrees to call the office if questions, concerns of issues with acute symptoms not improving or if they worsen. Return if symptoms worsen or fail to improve. Coco Ocampo APRN-RICO documented in this encounterMercy Health West Hospital04-07-2023 History of Present illness Narrative* Annemarie Westbrook, - 08/19/2022 11:42 AM EDT Images from the original note were not included. Heart , Vascular and Thoracic [place] DEPARTMENT OF VASCULAR SURGERY OUTPATIENT VISIT DATE [...] apply pressure secured down with paper tape. Onceall injections were completed the legs were cleansed with isopropyl alcohol and the patient put on compression stockings. There were no complications and the patient tolerated the procedure well. Diagnostic tests reviewed for today's visit: IMPRESSION: Ms. Tobar is a 71 year old female symptomatic varicose veins . PLAN and RECOMMENDATIONS: Reviewed home going instructions SIGNATURE: Annemarie Westbrook DO PATIENT NAME: mAina Tobar DATE: August 19, 2022 TIME: 12:10 PM documented in [place] encounterPamela [place] [id number] NoteHNO ID: [id number] Author: Teodora Zeng RT(R) Service: Radiology Author Type: Technologist Type: Progress Notes Filed: 07/27/2022 3:54 PM Note Text: Summary: CT CALCIUM SCORE Radiology Service Progress Note PATIENT NAME: Amian Tobar DATE OF SERVICE: July 27, 2022 [...] Guy Garcia RT(R) July 27, 2022 3:54 [facility]08[facility] Instructions* Patient Instructions* Fiorella Hall MD - 07/20/2022 9:06 AM EST Increase Vitamin D to 5000 units daily since level dropped with current dosing. Try taking Crestor 1 pill 2 to 3 times a week (whole pill or half pill). documented in this encounterMercy Health West Hospital03-08-2023 History of Present illness Narrative* Fiorella Hall MD - 07/20/2022 8:40 AM EST This note was created using NoteWriter. Subjective Amina Tobar is a 71 year old female. Patient presents with: F/U 6 months SUBJECTIVE: Amina Tobar is a 71 year old year old lady here today for 6 month follow up appointment for review of medical conditions. Still really active. Working at [employer] and doing exercise classes. Nyquil caused her trouble sleeping.Sensitive to decongestant and antihistamine gives opposite effect. Has tendency to cough and has allergies. Arms ache at night if takes Crestor. Getting cardiac calcium [facility] at [facility] (only $45 self pay cost). Has tendinitis [...] mouth daily before breakfast. Except 1/2 tab vit B complex no.12/niacin,B3, (VITAMIN B [...] Height as of 03/29/22: 153.7 cm (5' 0.5). Weight as of this encounter: 71.2 kg [...] Abs Lymph 1.00 - 4.00 k/uL 2.43 [place]% % 9.4 Abs [place] <0.87 k/uL 0.50 [place]% % 2.4 Abs [...] full remission (HCC) F33.42 buPROPion XL (WELLBUTRIN XL)300 mg 24 hr tablet 9. Gastroesophageal reflux [...] energy. Fiorella Hall MD documented in this encounterMercy Health West Hospital02-21-2023 Miscellaneous Notes* Telephone Encounter - Sierra Gonzalez RN - 07/05/2022 12:31 PM EST Pt called in asking if she had labs before her appointment. Let Pt know she had fasting labs ordered. documented in this encounterMercy Health West Hospital11-15-2022 History of Present illness Narrative* Annemarie Westbrook DO - 03/29/2022 12:00 AM EST NAME: AMINA TOBAR CLINIC NO: [id number] DATE OF SERVICE: 03/29/2022 Subjective: Amina is here to follow up on carotid artery disease. She denies any significant focalneurologic deficit. Overall, she is doing well. Denies any numbness, tingling or monocular vision loss. Objective: She has no focal neurologic deficit. No significant lower extremity edema, however, she does have some small, tender varicose veins in the right medial calf. She has had previous ultrasound-guided sclerotherapy. Reviewed her carotid duplex, which is unchanged from August. Her right ICA is 60- 79%, her left is 20-39%. This has been [...] year. Annemarie Westbrook D.O. KB/089 Audio #: [id number] Date Dictated: 03/29/2022 08:13:28 Date Typed: 04/04/2022 11:09:45 Date Revised: documented in this encounterMercy Health West Hospital10-21-2022 History of Present illness Narrative* Jeancarlos Vasques APRN.CLAY BURNER - 03/04/2022 2:20 PM EDT Telemedicine Evaluation for COVID-19 Infection Audio only was used for evaluation of this patient. Location of patient: [place] SUBJECTIVE Amina Tobar is a 71 year [...] (Paxlovid) Eligibility and Patient Discussion [facility] Formulary Restriction Criteria: Adult outpatients 18 [...] reported. The discussion included alternatives to receiving nirmatrelvir/rit onavir, including clinical trials, and potential the risks and benefits of those alternatives. The patient was provided electronically with the Fact Sheet for Patients, Parents and Caregivers. The patient was also instructed that in addition to the treatment with nirmatrelvir/ritonavir, he/she should continue to self-isolate and use infection control measures (e.g., wear mask, isolate, social distance, avoid sharing personal items, clean and disinfect high touch surfaces, and frequent h andwashing) according to CDC guidelines. The patient stated understanding and gave verbal consent to proceeding with nirmatrelvir/ritonavir treatment. Jeancarlos Vasques APRN.CNS March 04, 2022 12:14 PM This patient encounter involved the screening or treatment of novel coronavirus infection (COVID-19). 20 min visit Jeancarlos Vasques APRN.CNS documented in this encounterMercy Health West Hospital10-21-2022 Miscellaneous Notes* Addendum Note - Batool Lira LPN - 03/04/2022 12:56 PM EDTAddended by: BATOOL LIRA LPN on: 03/04/2022 12:56 PM Modules accepted: Orders, SmartSet documented in this encounterMercy Health West Hospital10-21-2022 Instructions* Patient Instructions* Jeancarlos Vasques APRN.CNS - 03/04/2022 12:19 PM EDT FACT SHEET FOR PATIENTS, PARENTS, AND CAREGIVERS EMERGENCY USE AUTHORIZATION (EUA) OF PAXLOVID FOR CORONAVIRUS DISEASE 2019 (COVID-19) You are being given this Fact Sheet because your healthcare provider believes it is necessary to provide you with PAXLOVID for the treatment of bugb-ky-veyogsdz coronavirus disease (COVID-19) caused by the SARS-CoV-2 virus. This Fact Sheet contains information to help you understand the risks and benefits of taking the PAXLOVID you have received or may receive. The U.S. Food and Drug Administration (FDA) has issued an Emergency Use Authorization (EUA) to makePAXLOVID available during the COVID-19 pandemic (for more details about an EUA please see What is an Emergency Use Authorization? at the end of this document). PAXLOVID is not an FDA-approved medicine in the [place]. Read this Fact Sheet for information about PAXLOVID. Talk to your healthcareprovider about your options or if you have any questions. It is your choice to take PAXLOVID. What is COVID-19? COVID-19 is caused by a virus called a coronavirus. You can get COVID-19 through close contact withanother person who has the virus. COVID-19 illnesses have ranged from very jsav-lu-thlvcl, including illness resulting in . While information so far suggests that most COVID-19 illness is mild, serious illness can happen and maycause some of your other medical conditions to become worse. Older people and people of all ages with severe, long lasting (chronic) medical conditions like heart disease, lung disease, and diabetes,for example seem to be at higher risk of being hospitalized for COVID-19. What is PAXLOVID? PAXLOVID is an investigational medicine used to treat lipr-tp-zppbfuhn COVID-19 in adults and children [12 years [...] of using PAXLOVID to treat people with clvy-nf-coykeige COVID-19. The FDA has authorized the emergency use of PAXLOVID for the treatment of wnqy-uh-tjttnqpp COVID-19in adults and children [12 years of age [...] the medicines you take, including prescription and dtwg-mqk-klafcxe medicines, vitamins, and herbal supplements. Some medicines [...] you have any questions about contraceptive methods thatmight be right for you. How do I [...] missed dose and take the next dose atyour regular time. Do not take 2 doses [...] oral midazolam Apalutamide Carbamazepine, phenobarbital, phenytoin Rifampin Suring s Wort (hypericum perforatum) Taking PAXLOVID with [...] (remdesivir) is FDA-approved for the treatment of eeie-ls-ixaxkvdr COVID-19 in certain adults and children. Talk with your doctor to see if Veklury is appropriate for you. Like PAXLOVID, FDA may also allow for the emergency use of other medicines to treat people with COVID-19. Go to https://www.fda.gov/norypvvtw-zybaldxqhjmo-cwegytoopsz/qyl-zjrwm-gspskwcmno-and- policy-framework/hdjwkmhwf-glh-fyqafpjfixvqd for information on the emergency use of other medicines that are authorized by FDA to treat people with COVID-19. Your healthcare provider may talk with you aboutclinical trials for which you may be eligible. It is your choice to be treated or not to be treated with PAXLOVID. Should you decide not to receive it or for your child not to receive it, it will not change your standard medical care. What if I am or ? There is plant taxonomy teacher treating women or mothers with PAXLOVID. For a motherand unborn baby, the benefit of taking PAXLOVID may be greater than the risk from the treatment. Ifyou are , discuss your options and specific situation with your healthcare provider. It is recommended that you use effective barrier contraception or do not have sexual activity whiletaking PAXLOVID. If you are , discuss your options and specific situation with your healthcare provider. How do I report side effects with PAXLOVID? Contact your healthcare provider if you have any side effects that bother you or do not go away. Report side effects to FDA MedWatch at www.fda.gov/medwatch or call 5-949-UWO0159 or you can reportside effects to [facility]. at the contact information provided below. Website Fax number Telephone number [employer] How should I store PAXLOVID? Store PAXLOVID [...] (EUA). The EUA is supported by a [place] of Health and Human Service ([facility]) declaration that circumstances exist to justify the emergency use of drugs and biological productsduring the COVID-19 pandemic. PAXLOVID for the treatment of iuvb-ur-ztctrjqy COVID-19 in adults and children [12 years of age andolder weighing at least 88 pounds (40 kg)] [...] telephone number provided below. Website Telephone number www.COSQY25xeqmFi.com (0-042-N26-PACK) You can also go to www.[employer].Pecabu or call for more information. Pfizer Distributed by [employer] Division of [facility] [place] [address] [id number] Revised: 30 July 2021 documented in this encounterMercy Health West Hospital10-20-2022 Miscellaneous Notes* Telephone Encounter - Jorge Luis Lopes RN - 03/03/2022 8:17 AM EDT Patient cancelled appt with [facility] for tomorrow. Patient declined offer to change [...] days from start of symptoms. If after 5days, symptoms have improved and no fever without [...] as CP or SOB. documented in this encounterMercy Health West Hospital09-02-2022 Instructions* Patient Instructions* Jeancarlos Vasques APRN.CHERYL - 01/14/2022 7:50 AM EDT Screening schedule [...] review all the medicines you take, even bvip-fpw-nnibghy medicines. As you get older, the way medicines work in your body can change. Some medicines, or combinations of medicines, can make you sleepy or dizzy andcan cause you to fall. 3. Have your [...] have certain medical conditions. documented in this encounterMercy Health West Hospital09-02-2022 History of Present illness Narrative* Jeancarlos Vasques APRN.CNS - 01/14/2022 7:32 AM EDT Amina S [place] is a 71 year old female here for a Medicare Subsequent Annual Wellness Visit Health Risk Assessment In general, health is: Excellent Concerns with tiredness, difficulties with sexual function, balance, teeth/dentures: Not at all Ramsey anxious, stressed, angry, irritable, lonely, isolated, or [...] for GERD. Had EGD with biopsy 2019. [facility] for Dermatology, recent skin check. [facility], has had cataract surgery and eye lift bilateral. Dr Gaffney pain management. Dr Aide graham for hearing check, not needing hearing aids. [...] 80 Resp 16 Ht 153.7 cm (5' 0.5) Wt 72.1 kg (159 lb) BMI 30.54 [...] mouth daily before breakfast. Except 1/2 tab vit B complex no.12/niacin,B3, (VITAMIN B [...] Abs Lymph 1.00 - 4.00 k/uL 2.43 [place]% % 9.4 Abs [place] <0.87 k/uL 0.50 [place]osin% % 2.4 Abs [...] with patient, and I recommended no further interventionat this time. Cognitive screening Mini-cog score: recently [...] Mammogram recommended and ordered documented in this encounterMercy Health West Hospital07-22-2022 Miscellaneous Notes* Telephone Encounter - Jorge Luis Lopes RN - 12/03/2021 8:08 AM EDT Phoned patient and notified of standing orders for thyroid- per provider's message. Patient agreeable. * Telephone Encounter - Fiorella Hall MD - 12/02/2021 8:25 PM EDT Filed order for standing orders--may check up to every 2 months * Telephone Encounter - Sierra Gonzalez RN - 11/29/2021 11:10 AM EDT Pt called in and reports she think [...] call and advise Pt. documented in this encounterMercy Health West Hospital07-13-2022 History of Present illness Narrative* Alejandra Thompson Population Health Navigator - 11/24/2021 12:35 PM EDT POPULATION HEALTH NAVIGATION OUTREACH Action/FYI Vm left for a return call Due for mammogram in January [employer] message sent Pt identified by name and : NO Outreach Outcome/Action Unable to reach patient: Left message NetTalonhart message sent Did you use a PCP flex slot to schedule this appointment? N/A Reason for Outreach Care Gap or Scheduling/Wellness visits Payer: Payor: [employer] [place] [employer] [facility] / Plan: [employer] ACCESS / Product Type: PPO / Care [...] 24, 2021 12:35 PM documented in this encounterMercy Health West Hospital04-12-2022 History of Present illness Narrative* Annemarie Westbrook DO - 08/24/2021 10:36 AM EDT This office note has been dictated. Annemarie Westbrook DO documented in this encounterMercy Health West Hospital04-01-2022 Instructions* Patient Instructions* Jackelyn Kim - 08/13/2021 10:22 AM EDT [...] puncture site(s) after the shower. No baths, swimmingpools or hot tubs for 72 hours 3. After the first shower, you may wear your compression stockings, if ordered, during the day for 2 weeks. The more you wear your stockings, the better the results will be. 4. Activity of normal daily living may be resumed when you return home. Elevate your leg above yourheart whenever you are sitting or resting. Take [...] You may notice hardening of the vein inthe areas treated. You will gradually notice the veins fading. This can take 1-6 months or longer for you to notice the full effect. If any skin blistering is noticed, please call the office. documented in this encounterMercy Health West Hospital04-01-2022 Nurse Note* Jackelyn Kim - 08/13/2021 10:07 AM EDT Sclerotherapy Procedure Record Amina Tobar August 13, 2021 [id number] Physician: Dr. Westbrook RN: Jackelyn Kim RVT Jah Phipps ASSISTANT ASSOCIATE PROFESSOR Sanna ALLERGIES Allergen Reactions Axid [Nizatidine] Hives Cymbalta [...] Stockings: 20-30-mmHg Follow Up: As already scheduled Rn Ante Partum: Sanna Masters NP Physician: Dr. Annemarie Westbrook DO documented in this encounterMercy Health West Hospital04-01-2022 History of Present illness Narrative* Annemarie Westbrook DO - 08/13/2021 9:30 AM EDT VASCULAR SURGERY ESTABLISHED PATIENT SERVICE DATE: 08/13/2021 [...] Relation Age of Onset Diabetes Father also CAD/VT Coronary Artery Disease Mother CABG at age [...] tablet by mouth once daily. With 150mg dose90 tablet 3 rosuvastatin (CRESTOR) 5 mg tablet [...] Adult) Pulse 78 Ht 154.9 cm (5' 1) Wt 68.9 kg (152 lb) SpO2 100% [...] carotid duplex for carotid stenosis Sanna Masters APRN.MULTIMEDIA ENGINEER Attending Note I have personally performed a face to face assessment of the patient and have reviewed the JORGE note. I performed a substantive portion of the visit including all aspects of the sclerotherapy with assistance of Sanna Masters. Patient tolerated procedure well. SIGNATURE: Annemarie Westbrook DO PATIENT NAME: Amina Tobar DATE: August 13, 2021 TIME: 9:30 AM documented in this encounterMercy Health West Hospital03-08-2022 History of Past illness Narrative* Problem Noted Date Resolved Date Obesity, unspecified 07/20/2021 documented as of this encounter (statuses as of 08/23/2021) [address]08-2022 History of Past illness Narrative* Problem Noted Date Resolved Date Obesity, unspecified 07/20/2021 documented as of this encounter (statuses as of 08/24/2021) [address]08-2022 History of Past illness Narrative* Problem Noted Date Resolved Date Obesity, unspecified 07/20/2021 documented as of this encounter (statuses as of 10/10/2021) [address]08-2022 History of Past illness Narrative* Problem Noted Date Resolved Date Obesity, unspecified 07/20/2021 documented as of this encounter (statuses as of 11/24/2021) [address]08-2022 History of Past illness Narrative* Problem Noted Date Resolved Date Obesity, unspecified 07/20/2021 documented as of this encounter (statuses as of 12/03/2021) [address]08-2022 History of Past illness Narrative* Problem Noted Date Resolved Date Obesity, unspecified 07/20/2021 documented as of this encounter (statuses as of 01/14/2022) [address]08-2022 History of Past illness Narrative* Problem Noted Date Resolved Date Obesity, unspecified 07/20/2021 documented as of this encounter (statuses as of 03/04/2022) [address]08-2022 History of Past illness Narrative* Problem Noted Date Resolved Date Obesity, unspecified 07/20/2021 documented as of this encounter (statuses as of 04/04/2022) [address]08-2022 History of Past illness Narrative* Problem Noted Date Resolved Date Obesity, unspecified 07/20/2021 documented as of this encounter (statuses as of 07/05/2022) [address]08-2022 History of Past illness Narrative* Problem Noted Date Resolved Date Obesity, unspecified 07/20/2021 documented as of this encounter (statuses as of 07/21/2022) [address]08-2022 History of Past illness Narrative* Problem Noted Date Resolved Date Obesity, unspecified 07/20/2021 documented as of this encounter (statuses as of 09/01/2022) [address]08-2022 History of Past illness Narrative* Problem Noted Date Resolved Date Obesity, unspecified 07/20/2021 documented as of this encounter (statuses as of 09/08/2022) [address]08-2022 History of Past illness Narrative* Problem Noted Date Resolved Date Obesity, unspecified 07/20/2021 documented as of this encounter (statuses as of 11/07/2022) [address]08-2022 History of Past illness Narrative* Problem Noted Date Resolved Date Obesity, unspecified 07/20/2021 documented as of this encounter (statuses as of 11/12/2022) [address]08-2022 History of Past illness Narrative* Problem Noted Date Diagnosed Date Resolved Date Obesity, unspecified 022 documented as of this encounter (statuses as of 03/04/2023) [address]08-2022 History of Past illness Narrative* Problem Noted Date Diagnosed Date Resolved Date Obesity, unspecified 022 documented as of this encounter (statuses as of 03/13/2023) [address]08-2022 History of Past illness Narrative* Problem Noted Date Diagnosed Date Resolved Date Obesity, unspecified 022 documented as of this encounter (statuses as of 03/16/2023) [facility] Past illness Narrative* Problem Noted Date Diagnosed Date Resolved Date Obesity, unspecified documented as of this encounter (statuses as of 03/19/2023) [facility] of Past illness Narrative* Problem Noted Date Diagnosed Date Resolved Date Obesity, unspecified documented as of this encounter (statuses as of 03/30/2023) [facility] Instructions* Patient Instructions* Fiorella Hall MD [...] of bedtime. documented in this encounterMercy Health West Hospital03-08-2022 History of Present illness Narrative* Fiorella Hall MD - 07/20/2021 8:48 AM EST This note was created using NoteWriter. Subjective Amina Tobar is a 70 year old female. Patient presents with: F/U 6 months SUBJECTIVE: Amina Tobar is a 70 year old year old lady here today for 6 month follow up appointment for review of medical conditions. Been to button breaker --everything okay Dr. Hernandez--did eyelid surgery Dr. Westbrook--taking care of varicose veins. Anxiety--off the charts. Issues with taking care Dennis.([id number]). After surgery--Dr. Mclean had her stop gabapentin. Also had her stop meloxicam. Trazodone has not been helping with sleep every night. Hard to fall asleep. Tosses and turns. Still works at [employer]. Helps dealing with stressors. PAST MEDICAL HISTORY [...] Abs Lymph 1.00 - 4.00 k/uL 2.43 [place]% % 9.4 Abs [place] <0.87 k/uL 0.50 [place]% % 2.4 Abs [...] TABLET Fiorella Hall [facility] Diagnosis Symptomatic varicose veins of both lower extremities- Primary Varicose veins of lower extremities with other complications documented [facility]* Diagnosis Stenosis of right carotid artery- Primary Occlusion and stenosis of carotid artery without mention of cerebral infarction documented [facility]* Diagnosis Anxiety with depression- Primary Acquired hypothyroidism Unspecified hypothyroidism Essential hypertension Unspecified essential hypertension Vitamin D deficiency Unspecified vitamin D deficiency Moderate episode of recurrent major depressive disorder (HCC) Hyperlipemia, mixed Mixed hyperlipidemia Psychophysiological insomnia Persistent disorder of initiating or maintaining sleep Sleep disturbance Sleep disturbance, unspecified documented [facility]* Diagnosis Acquired hypothyroidism- Primary Unspecified hypothyroidism documented [facility]* Diagnosis Medicare annual wellness visit, subsequent- [...] deficiency documented in this [facility]* Diagnosis Onset Date Resolution Status Strain of right forearm acut e Strain of right hand acute Strain of right wrist acute [facility] Work Phone: Evaluation note* Diagnosis COVID-19 virus infection- Primary Need for influenza vaccination Need for prophylactic vaccination and inoculation against influenza [facility] Diagnosis Stenosis of right carotid artery- Primary Occlusion and stenosis of carotid artery without mention of cerebral infarction [facility] Diagnosis Onset Date Resolution Status Carotid artery disease chron ic Essential (primary) hypertension chronic [facility] Work Phone: Evaluation note* Diagnosis Sleep disturbance- Primary Sleep disturbance, [...] Unspecified essential hypertension [facility] Diagnosis Symptomatic varicose veins of both lower extremities- Primary Varicose veins of lower extremities with other complications [facility] Diagnosis Constipation, unspecified constipation type- Primary [facility] Diagnosis Constipation, unspecified constipation type Screening for colon cancer Special screening for malignant neoplasms, colon [facility] Diagnosis Medicare annual wellness visit, subsequent- [...] use of medication [facility] Diagnosis Onset Date Resolution Status Skin tear of right lower leg without complication acute [facility] Work Phone: Evaluation note* Diagnosis Screening for colon cancer- Primary Special screening for malignant neoplasms, colon Constipation, unspecified constipation type [facility] noteNo assessment information availableWPro[facility] Work Phone: Evaluation note* Diagnosis Spinal stenosis, lumbar region, without neurogenic claudication- Primary Sciatica, unspecified laterality [facility] Diagnosis Vitamin D deficiency- Primary Unspecified vitamin D deficiency Essential hypertension Unspecified essential hypertension Anxiety, generalized Generalized anxiety disorder Acquired hypothyroidism Unspecified hypothyroidism Recurrent major depressive disorder, in full remission (HCC) Moderate episode of recurrent major depressive disorder (HCC) Disorder of carotid artery (HCC) Unspecified disorders of arteries and arterioles [facility] Diagnosis Gastritis determined by endoscopy- Primary Chronic RUQ pain Abdominal pain, right upper quadrant Constipation, unspecified constipation type [facility] Diagnosis Acute cystitis without hematuria- Primary Acute cystitis [facility]* Diagnosis Medicare annual wellness visit, subsequent- Primary Routine general medical examination at a health care facility Acquired hypothyroidism Unspecified hypothyroidism Age-related osteoporosis without current pathological fracture Senile osteoporosis Hypomagnesemia Disorders of magnesium metabolism Anxiety, generalized Generalized anxiety disorder Vitamin D deficiency Unspecified vitamin D deficiency IFG (impaired fasting glucose) Impaired fasting glucose Essential hypertension Unspecified essential hypertension Encounter for long-term current use of medication Encounter for immunization Need for other specified prophylactic vaccination against single bacterial disease [facility] Diagnosis Coronary artery disease involving kake coronary artery of kake heart without angina pectoris- Primary Status post angioplasty with stent Other postprocedural status Essential hypertension Unspecified essential hypertension Hyperlipemia, mixed Mixed hyperlipidemia Disorder of carotid artery (HCC) Unspecified disorders of arteries and arterioles [facility] Diagnosis Encounter for screening mammogram for breast cancer [facility] Diagnosis Spinal stenosis, lumbar region, without neurogenic claudication- Primary Sciatica, unspecified laterality [facility] Diagnosis Stenosis of right carotid artery- Primary Occlusion and stenosis of carotid artery without mention of cerebral infarction [facility] Diagnosis Screening mammogram for breast cancer- Primary Sleep disturbance Sleep disturbance, unspecified [facility]* Diagnosis Screening mammogram for breast cancer [facility] Diagnosis Acquired hypothyroidism- Primary Unspecified hypothyroidism Hyperlipemia, mixed Mixed hyperlipidemia IFG (impaired fasting glucose) Impaired fasting glucose Anxiety, generalized Generalized anxiety disorder Chronic pain of right ankle Heel pain, chronic, right Calcaneal spur of right foot Calcaneal spur Essential (primary) hypertension Unspecified essential hypertension Vitamin D deficiency Unspecified vitamin D deficiency Coronary artery disease involving kake coronary artery of kake heart without angina pectoris [facility] Additional Instructions Follow-up with cardiology and return for any other concerns or worsening symptoms.[facility] Work Phone: [facility] Outpatient Procedure (Routine) - Pending Review Specialty Diagnoses / Procedures Referred By Contac t Referred To Contact [facility] Diagnoses Stenosis of right carotid artery Procedures US CAROTID ARTERIES HARRIET VAS LAB DUPLEX SCAN EXTRACRANIAL ART COMPL BI STUDY Annemarie Westbrook DO [address] [place] [address] [facility] [place] [address] [place] [id number] Referral ID Status Reason Start Date Expiration Date Visits Requested Visits Authorized [id number] Pending Review Auto-Generat ed Referral 08/24/2021 08/24/2022 1 1 [facility] for referral (narrative)* Diagnostic Procedure Only (Routine) - Pending Review Specialty Diagnoses / Procedures Referred By Richy t Referred To Contact [facility] Diagnoses Encounter for screening mammogram for breast cancer Procedures CAROLYN SCREENING SCREENING MAMMOGRAPHY BI 2-VIEW BREAST INC Jeancarlos Espinoza, ERICK.[facility] [address] [place] [address] [facility] [address] [place] [address] Referral ID Status Reason Start Date Expiration Date Visits Requested Visits Authorized [id number] Pending Review Auto-Generat ed Referral 06/15/2022 02/13/2023 1 1 T [facility] for referral (narrative)* Outpatient Procedure (Routine) - Pending Review Specialty Diagnoses / Procedures Referred By Contac t Referred To Contact [facility] [place] Diagnoses Stenosis of right carotid artery Procedures US CAROTID ARTERIES HARRIET VAS LAB DUPLEX SCAN EXTRACRANIAL ART COMPL BI Annemarie Segundo DO [address] [place] [address] [facility] [place] [address] [place] [id number] Referral ID Status Reason Start Date Expiration Date Visits Requested Visits Authorized [id number] Pending Review Auto-Generat ed Referral 2 03/29/2023 1 1 [facility] for referral (narrative)* Outpatient Procedure (Routine) - Pending Review Specialty Diagnoses / Procedures Referred By Contac t Referred To Contact [facility] Diagnoses Constipation, unspecified constipation type Screening for colon cancer Procedures COLONOSCOPY SCREENING COLONOSCOPY FLX DX W/COLLJ SPEC WHEN Sarah Cox MD [address] [place] [address] [address] Referral ID Status Reason Start Date Expiration Date Visits Requested Visits Authorized [id number] Pending Review Auto-Generat ed Referral 11/08/2022 11/09/2023 1 1 [facility] for referral (narrative)* Diagnostic Procedure Only (Routine) - Pending Review Specialty Diagnoses / Procedures Referred By Contac t Referred To Contact [facility] Diagnoses Breast cancer screening by mammogram Procedures CAROLYN SCREENING W KIKE SCREENING DIGITAL BREAST TOMOSYNTHESIS BI SCREENING MAMMOGRAPHY BI 2-VIEW BREAST INC CAD Fiorella Hall MD [address] [place] [address] [facility] [address] [place] [id number] Referral ID Status Reason Start Date Expiration Date Visits Requested Visits Authorized [id number] Pending Review Auto-Generat ed Referral 02/03/2023 03/04/2024 1 1 [facility] for referral (narrative)* Outpatient Procedure (Routine) - Closed Specialty Diagnoses / Procedures Referred By Contac t Referred To Contact [facility] [place] Diagnoses Constipation, unspecified constipation type Screening for colon cancer Procedures COLONOSCOPY SCREENING COLONOSCOPY FLX DX W/COLLJ SPEC WHEN Sarah Cox MD [address] [place] [address] [facility] [place] [address] [place] [address] Referral ID Status Reason Start Date Expiration Date V isits Requested Visits Authorized [id number] Closed Auto-Generate d Referral 11/28/2022 02/26/2023 1 1 [facility] for referral (narrative)* Diagnostic Procedure Only (Routine) - New Request Specialty Diagnoses / Procedures Referred By Richy san Referred To Contact [facility] Diagnoses Encounter for screening mammogram for breast cancer Procedures CAROLYN SCREENING W KIKE SCREENING DIGITAL BREAST TOMOSYNTHESIS BI SCREENING MAMMOGRAPHY BI 2-VIEW BREAST INC Coco Matias APRN.CNP [address] [place] [address] [facility] [address] [place] [address] Referral ID Status Reason Start Date Expiration Date Visits Requested Visits Authorized [id number] New Request Auto-Generat ed Referral 4 05/02/2025 1 1 [facility] for referral (narrative)* Outpatient Procedure (Routine) - Pending Review Specialty Diagnoses / Procedures Referred By Richy san Referred [facility] Diagnoses Stenosis of right carotid artery Procedures US CAROTID ARTERIES HARRIET VAS LAB DUPLEX SCAN EXTRACRANIAL ART COMPL BI STUDY Annemarie Westbrook DO [address] [place] [address] [facility] [place] [address] [place] [address] Referral ID Status Reason Start Date Expiration Date Visits Requested Visits Authorized [id number] Pending Review Auto-Generat ed Referral 4 04/02/2025 1 1 [facility] for referral (narrative)* Diagnostic Procedure Only (Routine) - New Request Specialty Diagnoses / Procedures Referred By Richy san Referred To Contact [facility] Diagnoses Screening mammogram for breast cancer Procedures CAROLYN SCREENING W KIKE SCREENING DIGITAL BREAST TOMOSYNTHESIS BI SCREENING MAMMOGRAPHY BI 2-VIEW BREAST INC Jeancarlos Espinoza, ERICK.[facility] [address] [place] [address] [facility] [address] [place] [address] Referral ID Status Reason Start Date Expiration Date Visits Requested Visits Authorized [id number] New Request Auto-Generat ed Referral 05/20/2024 06/19/2025 1 1 [facility] for referral (narrative)No reason for referral information availableLyles Musations Work Phone: Reason for visit Narrative* Outpatient Procedure (Routine) - Closed Specialty Diagnoses / Procedures Referred By Richy san Referred To Contact [facility] Diagnoses Constipation, unspecified constipation type Screening for colon cancer Procedures COLONOSCOPY SCREENING COLONOSCOPY FLX DX W/COLLJ SPEC WHEN Sarah Cox MD [address] [place] [address] [facility] [place] [address] [place] [address] Referral ID Status Reason Start Date Expiration Date V isits Requested Visits Authorized [id number] Closed Auto-Generate d Referral 11/28/2022 02/26/2023 1 1 [facility] for visit Narrative* Diagnostic Procedure Only (Routine) - Closed Specialty Diagnoses / Procedures Referred By Richy san Referred To Contact [facility] Diagnoses Screening mammogram for breast cancer Procedures CAROLYN SCREENING W KIKE SCREENING DIGITAL BREAST TOMOSYNTHESIS BI SCREENING MAMMOGRAPHY BI 2-VIEW BREAST INC Jeancarlos Espinoza, ERICK.[facility] [address] [place] [address] [facility] [address] [place] [address] Referral ID Status Reason Start Date Expiration Date V isits Requested Visits Authorized [id number] Closed Auto-Generate d Referral 05/20/2024 06/19/2025 1 1 [facility] Summary Purpose Family History No Family History Records Found Relationship Condition Age at Onset Recorded Date/T fredy mother Arthritis Unknown father Diabetes mellitus Unknown Cardiac disease Unknown sister Cerebral hemorrhage Unknown Relationship Condition Age at Onset Recorded Date/T fredy mother Arthritis Unknown Myocardial infarction Unknown father Diabetes mellitus Unknown Cardiac disease Unknown sister Cerebral hemorrhage Unknown Advance Directives No Advanced Directives Records FoundDocuments on File Type Date Recorded Patient User Support Analyst Expl anation Advance Directive(s) 02/27/2020 8:50 AM Advance Directive(s) 02/27/2020 8:47 AM Advance Directive(s) 02/12/2020 8:55 AM Documents on File Type Date Recorded Patient User Support Analyst Expl anation Advance Directive(s) 02/27/2020 8:50 AM Advance Directive(s) 02/27/2020 8:47 AM Advance Directive(s) 02/12/2020 8:55 AM Documents on File Type Date Recorded Patient User Support Analyst Expl anation Advance Directive(s) 02/27/2020 8:47 AM Advance Directive Response Recorded Date/ Time Living Will Yes December 08, 2021 7:46am Power of Aerographer Yes December 08 7:46am Documents on File Type Date Recorded Patient User Support Analyst Expl anation Advance Directive(s) 02/27/2020 8:47 AM Advance Directive Response Recorded Date/ Time Living Will No March 06 6:18pm Power of Aerographer No March 06, 2022 6:18pm Advance Directive Response Recorded Date/ Time Living Will No March 07 3:32am Power of Aerographer No March 07, 2022 3:32am Advance Directive Response Recorded Date/ Time Living Will No March 07 2:32am Power of Aerographer No March 07, 2022 2:32am Advance Directive Response Recorded Date/ Time Living Will Yes May 15 1:26am Do you have a Healthcare Power of Aerographer? Yes May 15, 2024 1:26am Advance Directive Response Recorded Date/ Time Do you have a Healthcare Power of Aerographer? Yes October 18, 2024 1:29pm Name of Medical Power of Aerographer norm sepulveda October 18, 2024 1:29pm Chief Complaint and Reason for Visit Chief Complaint RIGHT HAND/WRIST/FOR ARM XRAY R HAND/WRIST/FORARM PAIN/ POST FALL 3DAYS SCREENING Reason for Visit Strain of right fore arm Strain of right hand Strain of right wrist Chief Complaint RIGHT HAND/WRIST/FOR ARM XRAY R HAND/WRIST/FORARM PAIN/ POST FALL 3DAYS SCREENING +COVID Reason for Visit Strain of right fore arm Strain of right hand Strain of right wrist Chief Complaint RIGHT HAND/WRIST/FOR ARM XRAY R HAND/WRIST/FORARM PAIN/ POST FALL 3DAYS SCREENING +COVID weakness Reason for Visit Strain of right fore arm Strain of right hand Strain of right wrist Chief Complaint SCREENING +COVID weakness Amb Documentation Amb Documentation OCC DIZZY,SOB (SELF REF) SOB Reason for Visit Carotid artery disea se Essential (primary) hypertension Chief Complaint RIGHT LEG NJURY/POST X1WK AGO SCREENING / POST JULI Reason for Visit Skin tear of right l ower leg without complication Chief Complaint SCREENING / POST MEN O Other intervertebral disc degeneration, lumbosacra Chief Complaint Admit Date PCI with stent June 14, 2024 9 :15am PCI with stent June 17, 2024 9 :20am 4 M FU July 25, 2024 8:4 5am RIGHT ANKLE August 05, 2024 8:4 7am RM 3 August 05, 2024 9:1 4am LUMBAR SPINE August 16, 2024 10:4 4am Pain October 05, 2024 7:49a m SINUS COMPLAINT/X3 WKS October 08, 2024 7: 53am Reason for Visit Admit Date Carotid artery disease July 25, 2024 8:45am Essential (primary) hypertension July 132024 8:45am Hyperlipidemia July 25, 2024 8:4 5am Stented coronary artery July 25, 2024 8:45am Low back pain August 05, 2024 8:4 7am Right ankle pain August 05, 2024 8:4 7am Degenerative disc disease, lumbar August 16, 2024 10:44am Lumbar stenosis without neurogenic jordan ication August 16, 2024 10:44am Spondylolisthesis at L4-L5 level August 162024 10:44am Chief Complaint Admit Date PCI with stent June 14, 2024 9 :15am PCI with stent June 17, 2024 9 :20am 4 M FU July 25, 2024 8:4 5am RIGHT ANKLE August 05, 2024 8:4 7am RM 3 August 05, 2024 9:1 4am LUMBAR SPINE August 16, 2024 10:4 4am Pain October 05, 2024 7:49a m SINUS COMPLAINT/X3 WKS October 08, 2024 7: 53am LUMBAR SPINE October 10, 2024 8:12a m Chief Complaint Admit Date 4 M FU July 25, 2024 8:4 5am RIGHT ANKLE August 05, 2024 8:4 7am RM 3 August 05, 2024 9:1 4am LUMBAR SPINE August 16, 2024 10:4 4am Pain October 05, 2024 7:49a m SINUS COMPLAINT/X3 WKS October 08, 2024 7: 53am LUMBAR SPINE October 10, 2024 8:12a m chest pain October 18, 2024 1:23p m Reason for Visit Admit Date Carotid artery disease July 25, 2024 8:45am Essential (primary) hypertension July 132024 8:45am Hyperlipidemia July 25, 2024 8:4 5am Stented coronary artery July 25, 2024 8:45am Low back pain August 05, 2024 8:4 7am Right ankle pain August 05, 2024 8:4 7am Degenerative disc disease, lumbar August 16, 2024 10:44am Lumbar stenosis without neurogenic jordan ication August 16, 2024 10:44am Spondylolisthesis at L4-L5 level August 162024 10:44am History of lumbar laminectomy October 10, 2024 8:12am Lumbar scoliosis October 10, 2024 8:12a m Osteopenia determined by x-ray October 10, 2024 8:12am Spinal stenosis of lumbar region with ne urogenic claudication October 10, 2024 8:12am Spondylolisthesis, lumbar region September 8:12am Chief Complaint Admit Date 4 M FU July 25, 2024 8:4 5am RIGHT ANKLE August 05, 2024 8:4 7am RM 3 August 05, 2024 9:1 4am LUMBAR SPINE August 16, 2024 10:4 4am Pain October 05, 2024 7:49a m SINUS COMPLAINT/X3 WKS October 08, 2024 7: 53am LUMBAR SPINE October 10, 2024 8:12a m chest pain October 18, 2024 1:23p m S/P EXTENDED ([facility]10/18) October 23, 2024 9: 49am Reason for Visit Admit Date Carotid artery disease July 25, 2024 8:45am Essential (primary) hypertension July 132024 8:45am Hyperlipidemia July 25, 2024 8:4 5am Stented coronary artery July 25, 2024 8:45am Low back pain August 05, 2024 8:4 7am Right ankle pain August 05, 2024 8:4 7am Degenerative disc disease, lumbar August 16, 2024 10:44am Lumbar stenosis without neurogenic jordan ication August 16, 2024 10:44am Spondylolisthesis at L4-L5 level August 162024 10:44am History of lumbar laminectomy October 10, 2024 8:12am Lumbar scoliosis October 10, 2024 8:12a m Osteopenia determined by x-ray October 10, 2024 8:12am Spinal stenosis of lumbar region with ne urogenic claudication October 10, 2024 8:12am Spondylolisthesis, lumbar region September 8:12am Carotid artery disease October 23, 2024 9 :49am Essential (primary) hypertension October 232024 9:49am Hyperlipidemia October 23, 2024 9:49 am Stented coronary artery October 23, 2024 9:49am Chief Complaint Admit Date 4 M FU July 25, 2024 8:4 5am RIGHT ANKLE August 05, 2024 8:4 7am RM 3 August 05, 2024 9:1 4am LUMBAR SPINE August 16, 2024 10:4 4am Pain October 05, 2024 7:49a m SINUS COMPLAINT/X3 WKS October 08, 2024 7: 53am LUMBAR SPINE October 10, 2024 8:12a m chest pain October 18, 2024 1:23p m S/P EXTENDED ([facility]10/18) October 23, 2024 9: 49am E-ORDER October 23, 2024 10:3 7am Reason for Referral Specialty Diagnoses / Procedures Referred By Contac t Referred To Contact General Surgery Diagnoses Constipation, unspecified constipation type Procedures CONSULT TO GENERAL SURGERY OFFICE/OUTPATIENT [facility] 60-74 MINUTES Coco Ocampo APRN.MULTIMEDIA ENGINEER [address] [place] [address] Referral ID Status Reason Start Date Expiration Date Visits Requested Visits Authorized [id number] Authorized PCP Requested Referral 11/07/2022 11/07/2023 1 [...] 15 Minutes, ONCE, 1 dose, On [place] 11/16/23 at 1000, Hazardous Potential Reproductive Risk Drug: Use appropriate PPE. New Bag/Syringe/Bottle 03/30/2023 10:12 AM EST 5 mg 400 mL/hr Additional Source Comments INFORMATION SOURCE (unrecogn ized section and content) DATE CREATED AUTHOR 08/22/2020 [facility] DATE CREATED AUTHOR AUTHOR'S ORGANIZ ATION 07/28/2022 [facility] DATE CREATED AUTHOR AUTHOR'S ORGANIZ ATION 08/18/2024 [facility] DATE CREATED AUTHOR AUTHOR'S ORGANIZ ATION 11/24/2024 [facility] Source Comments (unrecognize d section and content) In the event this informatio n is protected by the Federal Confidentiality of Alcohol and Drug Abuse Patient Records regulations: The Federal rules restrict any use of the information to criminally investigate or prosecute any alcohol or drug abuse patient.[facility] the event this information is protected by the Federal Confidentiality of Alcohol and Drug Abuse Patient Records regulations: The Federal rules restrict any use of the information to criminally investigate or prosecute any alcohol or drug abuse patient.[facility] the event this information is protected by the Federal Confidentiality of Alcohol and Drug Abuse Patient Records regulations: The Federal rules restrict any use of the information to criminally investigate or prosecute any alcohol or drug abuse patient.[facility] Hospital[facility] the event this information is protected by the Federal Confidentiality of Alcohol and Drug Abuse Patient Records regulations: The Federal rules restrict any use of the information to criminally investigate or prosecute any alcohol or drug abuse patient.[facility] the event this information is protected by the Federal Confidentiality of Alcohol and Drug Abuse Patient Records regulations: The Federal rules restrict any use of the information to criminally investigate or prosecute any alcohol or drug abuse patient.[facility] HospitalIn the event this information is protected by the Federal Confidentiality of Alcohol and Drug Abuse Patient Records regulations: The Federal rules restrict any use of the information to criminally investigate or prosecute any alcohol or drug abuse patient.[facility] HospitalIn the event this information is protected by the Federal Confidentiality of Alcohol and Drug Abuse Patient Records regulations: The Federal rules restrict any use of the information to criminally investigate or prosecute any alcohol or drug abuse patient.[facility] HospitalIn the event this information is protected by the Federal Confidentiality of Alcohol and Drug Abuse Patient Records regulations: The Federal rules restrict any use of the information to criminally investigate or prosecute any alcohol or drug abuse patient.[facility] HospitalIn the event this information is protected by the Federal Confidentiality of Alcohol and Drug Abuse Patient Records regulations: The Federal rules restrict any use of the information to criminally investigate or prosecute any alcohol or drug abuse patient.[facility] HospitalIn the event this information is protected by the Federal Confidentiality of Alcohol and Drug Abuse Patient Records regulations: The Federal rules restrict any use of the information to criminally investigate or prosecute any alcohol or drug abuse patient.[facility] HospitalIn the event this information is protected by the Federal Confidentiality of Alcohol and Drug Abuse Patient Records regulations: The Federal rules restrict any use of the information to criminally investigate or prosecute any alcohol or drug abuse patient.[facility] HospitalIn the event this information is protected by the Federal Confidentiality of Alcohol and Drug Abuse Patient Records regulations: The Federal rules restrict any use of the information to criminally investigate or prosecute any alcohol or drug abuse patient.[facility] HospitalIn the event this information is protected by the Federal Confidentiality of Alcohol and Drug Abuse Patient Records regulations: The Federal rules restrict any use of the information to criminally investigate or prosecute any alcohol or drug abuse patient.[facility] HospitalIn the event this information is protected by the Federal Confidentiality of Alcohol and Drug Abuse Patient Records regulations: The Federal rules restrict any use of the information to criminally investigate or prosecute any alcohol or drug abuse patient.[facility] HospitalIn the event this information is protected by the Federal Confidentiality of Alcohol and Drug Abuse Patient Records regulations: The Federal rules restrict any use of the information to criminally investigate or prosecute any alcohol or drug abuse patient.[facility] HospitalIn the event this information is protected by the Federal Confidentiality of Alcohol and Drug Abuse Patient Records regulations: The Federal rules restrict any use of the information to criminally investigate or prosecute any alcohol or drug abuse patient.[facility] HospitalIn the event this information is protected by the Federal Confidentiality of Alcohol and Drug Abuse Patient Records regulations: The Federal rules restrict any use of the information to criminally investigate or prosecute any alcohol or drug abuse patient.[facility] HospitalIn the event this information is protected by the Federal Confidentiality of Alcohol and Drug Abuse Patient Records regulations: The Federal rules restrict any use of the information to criminally investigate or prosecute any alcohol or drug abuse patient.[facility] HospitalIn the event this information is protected by the Federal Confidentiality of Alcohol and Drug Abuse Patient Records regulations: The Federal rules restrict any use of the information to criminally investigate or prosecute any alcohol or drug abuse patient.[facility] HospitalIn the event this information is protected by the Federal Confidentiality of Alcohol and Drug Abuse Patient Records regulations: The Federal rules restrict any use of the information to criminally investigate or prosecute any alcohol or drug abuse patient.[facility] HospitalIn the event this information is protected by the Federal Confidentiality of Alcohol and Drug Abuse Patient Records regulations: The Federal rules restrict any use of the information to criminally investigate or prosecute any alcohol or drug abuse patient.[facility] HospitalIn the event this information is protected by the Federal Confidentiality of Alcohol and Drug Abuse Patient Records regulations: The Federal rules restrict any use of the information to criminally investigate or prosecute any alcohol or drug abuse patient.[facility] HospitalIn the event this information is protected by the Federal Confidentiality of Alcohol and Drug Abuse Patient Records regulations: The Federal rules restrict any use of the information to criminally investigate or prosecute any alcohol or drug abuse patient.[facility] HospitalIn the event this information is protected by the Federal Confidentiality of Alcohol and Drug Abuse Patient Records regulations: The Federal rules restrict any use of the information to criminally investigate or prosecute any alcohol or drug abuse patient.[facility] HospitalIn the event this information is protected by the Federal Confidentiality of Alcohol and Drug Abuse Patient Records regulations: The Federal rules restrict any use of the information to criminally investigate or prosecute any alcohol or drug abuse patient.[facility] HospitalIn the event this information is protected by the Federal Confidentiality of Alcohol and Drug Abuse Patient Records regulations: The Federal rules restrict any use of the information to criminally investigate or prosecute any alcohol or drug abuse patient.[facility] HospitalIn the event this information is protected by the Federal Confidentiality of Alcohol and Drug Abuse Patient Records regulations: The Federal rules restrict any use of the information to criminally investigate or prosecute any alcohol or drug abuse patient.[facility] HospitalIn the event this information is protected by the Federal Confidentiality of Alcohol and Drug Abuse Patient Records regulations: The Federal rules restrict any use of the information to criminally investigate or prosecute any alcohol or drug abuse patient.[facility] HospitalIn the event this information is protected by the Federal Confidentiality of Alcohol and Drug Abuse Patient Records regulations: The Federal rules restrict any use of the information to criminally investigate or prosecute any alcohol or drug abuse patient.[facility] HospitalIn the event this information is protected by the Federal Confidentiality of Alcohol and Drug Abuse Patient Records regulations: The Federal rules restrict any use of the information to criminally investigate or prosecute any alcohol or drug abuse patient.[facility] HospitalIn the event this information is protected by the Federal Confidentiality of Alcohol and Drug Abuse Patient Records regulations: The Federal rules restrict any use of the information to criminally investigate or prosecute any alcohol or drug abuse patient.[facility] HospitalIn the event this information is protected by the Federal Confidentiality of Alcohol and Drug Abuse Patient Records regulations: The Federal rules restrict any use of the information to criminally investigate or prosecute any alcohol or drug abuse patient.[facility] HospitalIn the event this information is protected by the Federal Confidentiality of Alcohol and Drug Abuse Patient Records regulations: The Federal rules restrict any use of the information to criminally investigate or prosecute any alcohol or drug abuse patient.[facility] HospitalIn the event this information is protected by the Federal Confidentiality of Alcohol and Drug Abuse Patient Records regulations: The Federal rules restrict any use of the information to criminally investigate or prosecute any alcohol or drug abuse patient.[facility] Reason for Visit (unrecogniz ed section and content) Reason Comments Sclerotherapy Tx Specialty Diagnoses / Procedures Referred By Contac t Referred To Contact Peripheral Vascular / VASCULAR SURGERY Diagnoses Varicose veins of bilateral lower extremities with pain U/S GUIDED SCLERO pending insurcance auth, if not apporval pt will pay 200 out of pocket Procedures INJECTION SCLEROSANT MULTIPLE INCMPTNT VEINS SCLEROTHERAPY Annemarie Westbrook, DO [address] [place] [address] Annemarie Westbrook, DO [address] [place] [address] Referral ID Status Reason Start Date Expiration Date Visits Re quested Visits Authorized [id number] Closed 07/29/2022 05/14/2023 1 1 Reason Comments Established Patient Reason Comments F/U 6 months Reason Onset Date Comments Population Health Navigation Outreach 11/24/2021 [place] [facility] Reason Comments Patient Question Orders [...] consult Specialty Diagnoses / Procedures Referred By Contac t Referred To Contact General Surgery Diagnoses Constipation, unspecified constipation type Procedures CONSULT TO GENERAL SURGERY OFFICE/OUTPATIENT [facility] 60-74 MINUTES Coco Ocampo APRN.MULTIMEDIA ENGINEER [address] [place] [address] Referral ID Status Reason Start Date Expiration Date V isits Requested Visits Authorized [id number] Closed PCP Requested Referral 11/07/2022 11/07/2023 1 1 Reason Onset Date Comments Medicare Wellness Exam Radiology Mammogram 02/03/2023 at [facility] Reason Comments Results Reason Comments RECLAST START Reason Comments Non-Chemotherapy Treatment Specialty Diagnoses / Procedures Referred By Contac t Referred To Contact Diagnoses Sciatica, unspecified laterality Spinal stenosis, lumbar region, without neurogenic claudication Age-related osteoporosis without current pathological fracture Procedures INJECTION, ZOLEDRONIC ACID, 1 MG Coco Ocampo APRN.MULTIMEDIA ENGINEER [address] [place] [address] [facility] [address] [place] [address] Referral ID Status Reason Start Date Expiration Date V isits Requested Visits Authorized [id number] Authorized 03/15/2023 03/16/2024 1 1 Reason Comments 6 mo follow up Reason Comments Patient Update Reason Onset Date Comments Population Health Navigation Outreach 12/15/2023 [facility] Reason Comments Same Day Appointment GI issues x 4 weeks Reason Comments UTI symptoms of fatigue started last week but this am she wipe and saw some pink on the toilet paper and floating in toilet.Does complain of burning Has been having mid back pain Reason Comments Appointment Reason Comments Medicare Wellness Exam Reason Comments Hospital Follow Up [facility] 03/05/[address] ent placement Reason Comments Orders Specialty Diagnoses / Procedures Referred By Tristanac t Referred To Contact Diagnoses Sciatica, unspecified laterality Spinal stenosis, lumbar region, without neurogenic claudication Age-related osteoporosis without current pathological fracture Procedures INJECTION, ZOLEDRONIC ACID, 1 MG Fiorella Hall MD [address] [place] [address] [facility] [address] [place] [address] Referral ID Status Reason Start Date Expiration Date V isits Requested Visits Authorized [id number] Authorized 03/26/2024 03/26/2025 1 1 Reason Comments Orders Refill Request Reason Comments Recheck 6 month routine Care Teams (unrecognized sec tion and content) Tobacco Sampler Relationship Specialty Start Date End Date Fiorella Hall MD [address] [place] [address] PCP - General 03/23/02 Tobacco Sampler Relationship Specialty [place] [address] [place] [address], [place] [address] PCP - General 03/23/02 Tobacco Sampler Relationship Specialty Start Date End Date Fiorella Hall MD [address] [place] [address], [place] [address] PCP - General 03/23/02 Tobacco Sampler Relationship Specialty Start Date End Date Fiorella Hall MD [address] [place] [address], [place] [address] PCP - General 03/23/02 Tobacco Sampler Relationship Specialty Start Date End Date Fiorella Hall MD [address] [place] [address], [place] [address] PCP - General 03/23/02 Tobacco Sampler Relationship Specialty Start Date End Date Fiorella Hall MD [address] [place] [address], [place] [address] PCP - General 03/23/02 Tobacco Sampler Relationship Specialty Start Date End Date Fiorella Hall MD [address] [place] [address], [place] [address] PCP - General 03/23/02 Tobacco Sampler Relationship Specialty Start Date End Date Fiorella Hall MD [address] [place] [address], [place] [address] PCP - General 03/23/02 Tobacco Sampler Relationship Specialty Start Date End Date Fiorella Hall MD [address] [place] [address], [place] [address] PCP - General 03/23/02 Tobacco Sampler Relationship Specialty Start Date End Date Fiorella Hall MD [address] [place] [address] PCP - General 03/23/02 Tobacco Sampler Relationship Specialty Start Date End Date Fiorella Hall MD [address] [place] [address] PCP - General 03/23/02 Tobacco Sampler Relationship Specialty Start Date End Date Fiorella Hall MD [address] [place] [address] PCP - General 03/23/02 Tobacco Sampler Relationship Specialty Start Date End Date Fiorella Hall MD [address] [place] [address] PCP - General 03/23/02 Tobacco Sampler Relationship Specialty [place] [address] [place] [address] PCP - General 03/23/02 Team Status: Active Member Role Status Dates Dr. Fiorella Hall MD Family Provider Active Dr. Fiorella Hall MD Primary Care Provider Active Team Status: Inactive Member Role Status Dates Dr. Fiorella Hall MD Primary Care Provider, Referr ing Provider Active Froilan SCHMIDT, PA Attending Provider Active Team Status: Inactive Member Role Status Dates Dr. Fiorella Hall MD Primary Care Pr ovider, Attending Provider, Referring Provider Active Tobacco Sampler Relationship Specialty Start Date End Date Fiorella Hall MD [address] [place] [address] PCP - General 03/23/02 Tobacco Sampler Relationship Specialty Start Date End Date Fiorella Hall MD [address] [place] [address] PCP - General 03/23/02 Tobacco Sampler Relationship Specialty Start Date End Date Fiorella Hall MD [address] [place] [address] PCP - General 03/23/02 Team Status: Inactive Member Role Status Dates Dr. Fiorella Hall MD Primary Care Provider Active Dr. Guy Michelle MD Attending Provider, Referring Provider Active Tobacco Sampler Relationship Specialty Start Date End Date Fiorella Hall MD [address] [place] [address] PCP - General 03/23/02 Tobacco Sampler Relationship Specialty Start Date End Date Fiorella Hall MD [address] [place] [address] PCP - General 03/23/02 Tobacco Sampler Relationship Specialty Start Date End Date Fiorella Hall MD [address] [place] [address] PCP - General 03/23/02 Tobacco Sampler Relationship Specialty Start Date End Date Fiorella Hall MD [address] [place] [address] PCP - General 03/23/02 Tobacco Sampler Relationship Specialty Start Date End Date Fiorella Hall MD [address] [place] [address] PCP - General 03/23/02 Tobacco Sampler Relationship Specialty Start Date End Date Fiorella Hall MD [address] [place] [address] PCP - General 03/23/02 Tobacco Sampler Relationship Specialty Start Date End Date Fiorella Hall MD [address] [place] [address] PCP - General 03/23/02 Tobacco Sampler Relationship Specialty Start Date End Date Fiorella Hall MD [address] [place] [address] PCP - General 03/23/02 Tobacco Sampler Relationship Specialty Start Date End Date Fiorella Hall MD [address] [place] [address] PCP - General 03/23/02 Tobacco Sampler Relationship Specialty Start Date End Date Fiorella Hall MD [address] [place] [address] PCP - General 03/23/02 Jeancarlos Vasques, ENERGY CONSERVATION DIRECTOR.CLAY BURNER [address] [place] [address] [employer] Lead Teacher Internal Medicine 04/22/24 Coco Ocampo ENERGY CONSERVATION DIRECTOR.MULTIMEDIA ENGINEER [address] [place] [address] [employer] Lead Teacher Internal Medicine 04/22/24 Tobacco Sampler Relationship Specialty Start Date End Date Fiorella Hall MD [address] [place] [address] PCP - General 03/23/02 Jeancarlos Vasques APRN.CLAY BURNER [address] [place] [address] Montessori Lead Teacher Internal Medicine 04/22/24 Coco Ocampo APRN.MULTIMEDIA ENGINEER [address] [place], [place] [id number] [facility] Internal Medicine 04/22/24 Tobacco Sampler Relationship Specialty Start Date End Date Fiorella Hall MD [address] [place], [place] [address] PCP - General 03/23/02 Jeancarlos Vasques, ERICK.CLAY BURNER [address] [place], [place] [address] [employer]ori Lead Teacher Internal Medicine 04/22/24 Coco Oacmpo APRN.MULTIMEDIA ENGINEER [address] [place], [place] [address] [facility] Internal Medicine 08/06/24 Team Status: Active Member Role Status Dates Dr. Fiorella Hall MD Primary Care Provider Active Team Status: Inactive Member Role Status Dates Dr. Fiorella Hall MD Primary Care Provider Active Start: June 14, 2024 End: June 14, 2024 Dr. Alexandrea Valdivia MD Attending Provider Active Start: June 14, 2024 End: June 14, 2024 Dr. Alexandrea Valdivia MD Referring Provider Active Start: June 14, 2024 End: June 14, 2024 Team Status: Inactive Member Role Status Dates Dr. Fiorella Hall MD Primary Care Provider Active Start: June 17, 2024 End: July 12, 2024 Dr. Alexandrea Valdivia MD Attending Provider Active Start: June 17, 2024 End: July 12, 2024 Dr. Alexandrea Valdivia MD Referring Provider Active Start: June 17, 2024 End: July 12, 2024 Team Status: Inactive Member Role Status Dates Dr. Fiorella Hall MD Primary Care Provider Active Start: July 25, 2024 End: July 25, 2024 Dr. Fiorella Hall MD Referring Provider Active Start: July 25, 2024 End: July 25, 2024 Dany Thornton ASSISTANT ASSOCIATE PROFESSOR, ASSISTANT ASSOCIATE PROFESSOR-C Attending Provider Active S tart: July 25, 2024 End: July 25, 2024 Team Status: Inactive Member Role Status Dates Dr. Fiorella Hall MD Primary Care Provider Active Start: August 05, 2024 End: August 05, 2024 Dr. Fiorella Hall MD Referring Provider Active Start: August 05, 2024 End: August 05, 2024 LIZANDRO Burleson Attending Provider Active Start: August 05, 2024 End: August 05, 2024 Team Status: Inactive Member Role Status Dates Dr. Fiorella Hall MD Primary Care Provider Active Start: August 05, 2024 End: August 05, 2024 Dr. Mick Kam MD Attending Provider Active S tart: August 05, 2024 End: August 05, 2024 Team Status: Inactive Member Role Status Dates Dr. Fiorella Hall MD Primary Care Provider Active Start: August 16, 2024 End: August 16, 2024 Dr. Fiorella Hall MD Referring Provider Active Start: August 16, 2024 End: August 16, 2024 ROXANA Crocoran Attending Provider Active Star t: August 16, 2024 End: August 16, 2024 Team Status: Active Member Role Status Dates Dr. Fiorella Hall MD Primary Care Provider Active Start: October 05, 2024 ROXANA Corcoran Attending Provider Active Star t: October 05, 2024 ROXANA Corcoran Referring Provider Active Star t: October 05, 2024 Team Status: Inactive Member Role Status Dates Dr. Fiorella Hall MD Primary Care Provider Active Start: October 08, 2024 End: October 08, 2024 Dr. Fiorella Hall MD Referring Provider Active Start: October 08, 2024 End: October 08, 2024 Narendra SCHMIDT, PA Attending Provider Active Start: October 08, 2024 End: October 08, 2024 Team Status: Inactive Member Role Status Dates Dr. Fiorella Hall MD Primary Care Provider Active Start: October 05, 2024 End: October 05, 2024 ROXANA Corcoran Attending Provider Active Star t: October 05, 2024 End: October 05, 2024 ROXANA Corcoran Referring Provider Active Star t: October 05, 2024 End: October 05, 2024 Team Status: Inactive Member Role Status Dates Dr. Fiorella Hall MD Primary Care Provider Active Start: October 10, 2024 End: October 10, 2024 Dr. Fiorella Hall MD Referring Provider Active Start: October 10, 2024 End: October 10, 2024 Dr. Howard Cavanaugh MD Attending Provider Active Start: October 10, 2024 End: October 10, 2024 Team Status: Inactive Member Role Status Dates Dr. Fiorella Hall MD Primary Care Provider Active Start: October 18, 2024 End: October 18, 2024 Dr. Danish Campbell DO Emergency Provider Active Start: October 18, 2024 End: October 18, 2024 Team Status: Inactive Member Role Status Dates Dr. Fiorella Hall MD Primary Care Provider Active Start: October 23, 2024 End: October 23, 2024 Dr. Fiorella Hall MD Referring Provider Active Start: October 23, 2024 End: October 23, 2024 Jewel SCHMIDT PA Attending Provider Active Start: October 23, 2024 End: October 23, 2024 Team Status: Inactive Member Role Status Dates Dr. Fiorella Hall MD Primary Care Provider Active Start: October 18, 2024 End: October 18, 2024 Dr. Danish Campbell DO Attending Provider Active Start: October 18, 2024 End: October 18, 2024 Dr. Danish Campbell DO Emergency Provider Active Start: October 18, 2024 End: October 18, 2024 Team Status: Inactive Member Role Status Dates Dr. Fiorella Hall MD Primary Care Provider Active Start: October 23, 2024 End: October 23, 2024 Jewel SCHMIDT, PA Attending Provider Active Start: October 23, 2024 End: October 23, 2024 Jewel SCHMIDT, PA Referring Provider Active Start: October 23, 2024 End: October 23, 2024 Goals (unrecognized section and content) Goals may be documented in a n alternate sectionGoals may be documented in an alternate sectionGoals may be documented in an alternate sectionGoals may be documented in an alternate sectionGoals may be documented in an alternate sectionGoals may be documented in an alternate sectionGoals may be documented in an alternate sectionGoals may be documented in an alternate sectionGoals may be documented in an alternate sectionGoals may be documented in an alternate sectionGoals may be documented in an alternate sectionGoals may be documented in an alternate section FOR RECORDS PERTAINING TO PATIENTS WHO ARE [...] BE BASED ON THE PRIMARY CLINICAL RECORDS. [facility]. provides no warranty or guarantee of the accuracy or completeness of information in this document.
--- NOTE | 2024-11-25 14:51 | STRESSREP ---
Stress Test Report Exercise myocardial perfusion stress test. 73-year-old lady with a history of chest pain Stress protocol: Resting EKG demonstrates normal sinus rhythm with a rate of 60 bpm resting blood pressure is 1 5672 mmHg. The patient exercised according to the regular Sami protocol for a total duration of 6 minutes attaining a maximum heart rate of 127 bpm which was 86% of maximum predicted heart rate; the maximum workload was 7 metabolic equivalents. At rest there were no ST or T wave changes noted to suggest ischemia and at peak exercise upsloping ST changes only were noted which did not meet the criteria for ischemia. No clinical angina was noted the test was terminated due to the target heart rate being achieved/fatigue. The peak blood pressure was 178/62 mmHg. Rate-pressure product was 22,400. Myocardial perfusion protocol. 11.4 mCi of technetium 99m sestamibi was injected at rest. The patient exercised according to regular Sami protocol for total duration of 6 minutes and at peak exercise 33.8 mCi of technetium 99m sestamibi was injected stress images were obtained stress and rest images were reconstructed in comparing the short axis vertical long and horizontal long axis. Gated images were also obtained. Perfusion SPECT analysis: Review of the stress images demonstrate normal uptake of tracer noted in all areas of the myocardium. The resting images similarly demonstrate normal uptake of tracer noted in all areas of the myocardium. No areas of reversibility are noted to suggest ischemia no previous infarct was noted. Gated SPECT analysis: The gated ejection fraction is 82%. Conclusion: Normal exercise myocardial perfusion stress test at a moderate workload Preserved ejection fraction.
== END | disposition home or self-care (01) ==
LOC: CVS 06:06
PROVIDERS: PCP Internal Medicine; Referring Provider Physician Assistant Medical; Visit Provider Physician Assistant Medical
DX: R07.9 Chest pain, unspecified (principal); Z95.5 Presence of coronary angioplasty implant and graft
CPT/HCPCS: 78452; 93017; A9500; A4216

== ENCOUNTER → 2025-02-19 | Outpatient (CLI) | payer MEDICARE, SELFPAY ==
[2024-08-01 08:50] VITALS: BMI 28.5
--- NOTE | 2025-02-19 08:07 | RAD_ITS ---
PROCEDURE: ESOPHAGUS DUAL CONTRAST 02/19/2025 REASON FOR EXAM: DYSPHAGIA TECHNIQUE: ESOPHAGUS DUAL CONTRAST FLUOROSCOPIC TIME: 2 minutes 16 seconds. FLUOROGRAPHIC IMAGES: Numerous. Dose: DAP 54.8 dGy-cm2. COMPARISON: None. FINDINGS: Limited visualization of the swallowing mechanism shows no abnormality. The esophagus shows no area of persistent narrowing. No mucosal abnormality is seen. A widely patent esophagogastric junction is noted. Intermittent mid to distal esophageal spasm is seen. A mild degree of gastroesophageal reflux was seen during the time of imaging. 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 RAD/Esophagus Dual Contrast IMPRESSION: 1. Intermittent mid to distal esophageal spasm. 2. Mild gastroesophageal reflux seen during the limited time of imaging. Reading Location: [place] [id number]
== END | disposition home or self-care (01) ==
LOC: RAD 07:33
PROVIDERS: PCP Internal Medicine; Referring Provider Otolaryngology; Visit Provider Otolaryngology
DX: R13.10 Dysphagia, unspecified (principal)
CPT/HCPCS: 74221

== ENCOUNTER → 2025-03-13 | Outpatient (CLI) | payer MEDICARE, SELFPAY ==
[2025-03-11 10:08] VITALS: BMI 28.5
--- NOTE | 2025-03-13 07:20 | MRI_ITS ---
PROCEDURE: MRI/Spine Cervical (Routine)
== END | disposition home or self-care (01) ==
LOC: OPMRI 07:09
PROVIDERS: PCP Internal Medicine; Referring Provider Orthopaedic Surgery Orthopaedic Surgery of the Spine; Visit Provider Orthopaedic Surgery Orthopaedic Surgery of the Spine
DX: G95.9 Disease of spinal cord, unspecified (principal)
CPT/HCPCS: 72141

== ENCOUNTER → 2025-03-26 | Outpatient (CLI) | payer MEDICARE, SELFPAY ==
[2025-03-11 10:08] VITALS: BMI 28.5
--- NOTE | 2025-03-26 08:27 | BD_ITS ---
PROCEDURE: DEXA BONE DENSITY STUDY 03/26/2025 REASON FOR EXAM: F, age 74 y/o . Postmenopausal. TECHNIQUE: Procedure Code: BDDBD Modality: DX Procedure: DEXA BONE DENSITY STUDY COMPARISON: March 01, 2023. FINDINGS: BMD and T-SCORES Lumbar spine: 0.900 g/cm2, T-score -0.7 Levels: L1 through L4 Change from prior: Improvement of 6.1%. Left femoral neck: 0.467 g/cm2, T-score -3.4 Femoral neck comparison data not recommended for monitoring change. Left total hip: 0.681 g/cm2, T-score -2.1 Change from prior: Improvement of 7.4%. Right femoral neck: 0.519 g/cm2, T-score -3.0 Femoral neck comparison data not recommended for monitoring change. Right total hip: 0.677 g/cm2, T-score -2.2 Change from prior: Improvement of 4.9%. The World Health Organization has defined the following categories based on bone density: Normal bone density: T-score equal to or greater than -1.0 Osteopenia: T-score between -1.0 and -2.5 Osteoporosis: T-score equal to or less than -2.5 FRAX (or Comparable) Fracture Risk Assessment: 10 Year Probability of Fracture: Major Osteoporotic Fracture: 64% Hip Fracture: 54% (Note: FRAX is not to be reported in setting of normal range bone density, osteoporosis on DEXA, known history of osteoporosis, prior osteoporotic hip or vertebral fracture, or for any patient undergoing pharmacological treatment for bone loss.) The National Osteoporosis Foundation (NOF) recommends pharmacological treatment for patients with a FRAX 10-year risk of 3% or higher for a hip fracture, or 20% or higher for a major osteoporotic fracture, to prevent osteoporosis and reduce fracture risk. The patient does meet the pharmacological treatment recommendations for prevention of osteoporosis. BD/Dexa Bone Density Study IMPRESSION: OSTEOPOROSIS. Recommend follow-up as clinically warranted. Reading Location: [place] [id number]
== END | disposition home or self-care (01) ==
PROVIDERS: PCP Internal Medicine; Referring Provider Internal Medicine; Visit Provider Internal Medicine
DX: Z13.820 Encounter for screening for osteoporosis (principal); Z78.0 Asymptomatic menopausal state
CPT/HCPCS: 77080

== ENCOUNTER 2025-04-07 14:30 | Outpatient (RCR) | payer MEDICARE, SELFPAY ==
[2024-08-01 08:50] VITALS: BMI 28.5
--- NOTE | 2025-03-10 09:51 | HP.PTEVAL_ITS ---
Patient's Visit Information Visit Information Visit Information: DAMIEN ROBERT is a 74 year old F referred to Physical Therapy by Dr. Howard Cavanaugh MD with a diagnosis of spinal stenosis Lumbar, DDD L spine. Date of Evaluation: 03/10/25 Physical Therapist: YAMILA Zhao Visit Plan Frequency: 2x /Week Duration: 2 Months Plan: 2X/ week for 8 weeks for stretching of L piriformis, L HS and L hip flexor/Quad with foam rolling to the QUADS, LE strength, curb steps up and down with control, sit to stand transfers, core stability with some flexion stretches to see if helps to improve LE symptoms with HEP HEP: strap HS stretch, LTR Subjective Subjective: She is not sure when this started but in the last few years but she did not know what it was. She will step down from a curb and her leg will give out (mostly the L) but could be either. She has had back surgery and will do an MRI of her neck. She has had balance issues for years. She has fallen doing stupid stuff. She does not feel that her legs are weak but something is going on. She has no arm weakness that she knows of. Her hands will go asleep a lot at night. Pain back pain: Pain Intensity (Out of 10): 2 B anterior thigh pain: Pain Intensity (Out of 10): 6 Comment: pain in the morning Objective Objective: Gait: walks with shorter strides and decrease stance time on the L LE. When turning 180 degrees she does tend to step out at times to maintain balance Sit to stand: on first attempt she stood up too fast without arms and feel BW into the chair due to LOB. Pt is able to stand with feet together with EC X 30 with no issue Stairs: up and down recip with 1 hand rail. Trunk AROM: flexion 100%, Ext 75%, SB B 75%, Rot B 50% LE MMT: R hip flex 12# and L 11.4 R knee ext 17.2 and L 18.8 R knee flex 8 and L 11.5 R hip abd 12.1 and L 12.2 R hip ext 9.7 and L 9.7 Tight L hip flexor/Quad, HS, and Piriformis on the L compared to the R. Pt is able to walk on heels and toes but does have a little weakness with single leg on the L heel raise FGA 19 Balance/Special Test Scores Functional Gait Assessment Score: 19 % Disability: 36.6700 Oswestry Low Back Score: 3 Goals Goal 1:: I HEP Goal Time Frame: 6-8 Weeks Goal 2:: Increase LE strength: (at the time of the eval: LE MMT: R hip flex 12# and L 11.4 R knee ext 17.2 and L 18.8 R knee flex 8 and L 11.5 R hip abd 12.1 and L 12.2 R hip ext 9.7 and L 9.7). Goal Time Frame: 6-8 Weeks Goal 3:: Be able to step down from a curb step with each leg X 10 in a row without legs giving out. Goal Time Frame: 6-8 Weeks Goal 4:: Increase balance (FGA was 19 at eval) Goal Time Frame: 6-8 Weeks Rehabilitation Potential Rehabilitation Potential: Good Anticipated Interventions Patient/Client Instruction: Educate patient on: Condition and Plan of Care For the Purpose of:: To decrease pain, To increase ROM, To improve muscle performance and motor function, To improve ability to perform ADL's, To increase tolerance to activity/condition/position, To improve performance and independence with ADL's, To decrease level of supervision to perform tasks, To improve ability of physical actions for home/community/work/leisure, To improve gait and locomotor functions, To improve health of tissue, To decrease soft tissue restriction, To increase flexibility/ROM, To improve endurance, To improve balance and To improve safety with gait Therapeutic Exercise to Include: Strength training, Endurance training, Balance training, Coordination, Body mechanics, Postural training, Flexibilty training, Gait and locomotor training, Neuromotor development, Passive ROM, Active ROM and Dynamic Lumbar Stabilization For the Purpose of:: To decrease pain, To increase ROM, To improve nutrient delivery to tissue, To increase oxygenation perfusion, To improve muscle performance and motor function, To improve ability to perform ADL's, To increase tolerance to activity/condition/position, To improve performance and independence with ADL's, To decrease level of supervision to perform tasks, To improve ability of physical actions for home/community/work/leisure, To improve gait and locomotor functions, To improve health of tissue, To decrease soft tissue restriction, To increase flexibility/ROM, To improve endurance, To im prove balance and To improve safety with gait Functional Training to Include: Gait training For the Purpose of:: To improve gait and locomotor functions and To improve safety with gait Text: Thank you for the opportunity to evaluate your patient. For Medicare and Medicare HMO plans, please review the plan of care and approve it. It will need to be FAXED BACK to us at [phone] for Medicare purposes. For Medicare only, by signing this I certify the plan of care. Please let me know if there are questions or concerns regarding this plan of care. Physician Signature: Date:
--- NOTE | 2025-04-07 14:59 | HP.PTDCSUM ---
Discharge Summary D/C summary: It has been my pleasure to treat DAMIEN ROBERT referred by Dr. Howard Cavanaugh MD, with the diagnosis of spinal stenosis Lumbar, DDD L spine for a total of 6 visit(s). Discharge Date: 04/07/25 Please see the following information for a summary of their discharge status. Subjective Subjective: Her back feels good today. Her back has been pretty good since shot in December. She sees Dr House on Monday. Dr will review her neck MRI. She reports that her balance might be a little better. She flew into the window at her work the other day but she caught her foot. She thinks that PT has helped. She does not think she needs any more PT. She is not in pain and if she pays attention, her balance is better. Pt has exercises to do at home that she will continue to do them. She walked a mile yesterday. Pain back pain: Pain Intensity (Out of 10): 2 B anterior thigh pain: Pain Intensity (Out of 10): Unrated Overall Improvement % Improvement: 80 Objective Objective/Function: R hip flex 14.7 and L 11.4 R knee ext 19.5 and L 19.7 R knee flex 13.6 and L 12.2 R hip abd 12.1 and L 12.2 R hip ext 9.7 and L 9.7 Curb steps: up and X4 times each 6 inch and 8 inch curb step without UE support without LOB FGA 26 Goals Goal 1:: I HEP Goal Progress: Goal Met Goal 2:: Increase LE strength: (at the time of the eval: LE MMT: R hip flex 12# and L 11.4 R knee ext 17.2 and L 18.8 R knee flex 8 and L 11.5 R hip abd 12.1 and L 12.2 R hip ext 9.7 and L 9.7). Goal Progress: Goal Met Goal 3:: Be able to step down from a curb step with each leg X 10 in a row without legs giving out. Goal Progress: Goal Met Goal 4:: Increase balance (FGA was 19 at eval) Goal Progress: Goal Met Plan Plan: DC PT to HEP D/C Information Discharge Comments: DC PT d/c sentence: If there are questions or concerns regarding this patient's physical therapy, please feel free to call me at [phone]. Thank you for the referral of this patient. Sincerely, Jayda Holm, YAMILA Balance/Gait/Functional tests Balance/Special Test Scores Functional Gait Assessment Score: 26 % Disability: 13.3400 Oswestry Low Back Score: 2 Improvement % Improvement: 80
== END 2025-04-07 19:00 | disposition home or self-care (01) ==
LOC: PT 14:30
PROVIDERS: PCP Internal Medicine; Referring Provider Orthopaedic Surgery Orthopaedic Surgery of the Spine; Visit Provider Orthopaedic Surgery Orthopaedic Surgery of the Spine
DX: M48.062 Spinal stenosis, lumbar region with neurogenic claudication (principal); M51.362 Other intervertebral disc degeneration, lumbar region with discogenic back pain and lower extremity pain
CPT/HCPCS: 97110; 97140; 97162; 97530